=== PATIENT | female | born 2000 | race Caucasian/White ===

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

== ENCOUNTER 2023-03-26 13:12 | Emergency (ER) | payer MEDICAID, SELFPAY ==
[2023-03-26 13:13] VITALS: BP 121/58; PULSE 80; RESP 18; TEMP 36.4; O2SAT 95; BMI 44.4
--- NOTE | 2023-03-26 13:30 | ED.VIS.FEGU ---
HPI <FAUSTINO Li - Last Filed: 03/26/23 15:53> HPI - Female History of Present Illness Chief Complaint: Vag Bld, Preg Narrative Narrative: Patient is a 22-year-old female with history of PCOS, multiple miscarriages. Patient is a 3 para 0 abortions 2. Patient's had 2 miscarriages last 21 July 2022. Patient presents to the emergency department for vaginal bleeding that was heavier last evening, minimal pain. She is 5 to 6 weeks . She is a negative, so she knows that when she bleeds, concerning for miscarriage she needs RhoGAM. She states that she is here for the blood work, she does not want a ultrasound. She does have an ultrasound scheduled for Monday this upcoming week which is in 3 days. She denies any specific abdominal pain, no fever chills nausea or vomiting. PFSH <FAUSTINO Li - Last Filed: 03/26/23 15:53> PFSH Medical History Enlarged liver Home Medications prenat.vits,jessi,[id number] 1 tab PO DAILY 12/29/21 [History Last Taken Unknown] aspirin 81 mg tablet,delayed release 81 mg PO DAILY 03/26/23 [History Last Taken Unknown] folic acid 1 mg tablet 1 mg PO DAILY 03/26/23 [History Last Taken Unknown] metformin 500 mg tablet 500 mg PO DAILY 03/26/23 [History Last Taken Unknown] Allergy/AdvReac Type Severity Reaction Status Date / Time sumatriptan [From Imitrex] Allergy Rash Verified 03/26/23 13:15 Family History Grandmother Cancer Hypertension Surgical History Hx of tonsillectomy Magna teeth removed Social History household members: friend(s) Smoking Status: Never smoker alcohol intake: never substance use type: marijuana ROS <FAUSTINO Li - Last Filed: 03/26/23 15:53> ROS ED ROS Narrative Constitutional: Negative for fever, chills, weight loss, weakness Eyes: Negative for vision loss, vision change, double vision ENT: Negative for any sore throat, ear pain, congestion Cardiovascular: Negative for any chest pain, tightness, palpitations Respiratory: Negative for any cough, sputum production, hemoptysis, dyspnea, dyspnea on exertion, orthopnea Gastrointestinal: Negative for any abdominal pain, nausea, vomiting, diarrhea, constipation, blood in stool, blood in vomit : Negative for any urinary frequency, dysuria, retention, blood in urine. Positive for vaginal bleeding concern for miscarriage Muscle skeletal: Negative for any muscle joint pain, stiffness, myalgias, arthralgias, neck pain, back pain Neurological: Negative for any headache, syncope, numbness or tingling, dizziness Skin: Negative for any rashes, lumps, itching, abrasions, lacerations Psychiatric: Negative for any depression, anxiety, stress, suicidal ideation, homicidal ideation Hematologic: Negative for any easy bruising, excessive bruising, easy bleeding Allergies: Negative for any eczema, hives, rash EXAM <FAUSTINO Li - Last Filed: 03/26/23 15:53> Physical Exam Narrative Exam Narrative: Vital signs reviewed. HEET: Head normocephalic atraumatic, TMs clear bilaterally. Posterior pharynx is clear, moist mucous membranes. Nares clear bilaterally. Neck: Supple with no lymphadenopathy or tenderness. No signs of meningismus, negative jolt sign. Cardiac: Regular rate and rhythm no murmurs gallops or rubs, equal peripheral pulses bilaterally. Respiratory: Lungs clear to auscultation bilaterally. No chest tenderness. Abdomen: Soft, nontender, nondistended. No abdominal bruit or pulsatile masses. No hepatosplenomegaly Extremities: No peripheral edema, no signs of gross trauma or deformity. Active full range of motion of all extremities. Neuro: Cranial nerves II through XII intact, no focal neurological deficits. Skin: Clean dry and intact with no rash, purpura, petechiae, vesicles or pustules. Backs/flank: No CVA tenderness, no midline spinal tenderness, no deformity. Psych: Normal mood and affect. No SI, HI or acute psychosis. : Deferred pelvic exam. No vaginal pain at this time. Const Vital Signs: 03/26/23 13:13 03/26/23 15:12 Temperature 97.5 F L Temperature Source Temporal Pulse Rate 80 Respiratory Rate 18 18 Blood Pressure 121/58 H Blood Pressure Mean 79 Pulse Ox 95 Oxygen Delivery Method Room Air Positive well nourished and well developed General Appearance ED: well developed <Dr. Deuce Levy DO - Last Filed: 03/26/23 15:55> Physical Exam Const Vital Signs: 03/26/23 13:13 03/26/23 15:12 Temperature 97.5 F L Temperature Source Temporal Pulse Rate 80 Respiratory Rate 18 18 Blood Pressure 121/58 H Blood Pressure Mean 79 Pulse Ox 95 Oxygen Delivery Method Room Air MDM <OLIMPIA LiC - Last Filed: 03/26/23 15:53> MDM Lab Data Labs: Laboratory Results - last 24 hr 03/26/23 03/26/23 03/26/23 13:35 13:35 13:35 WBC 9.4 RBC 4.40 Hgb 13.6 Hct 40.0 MCV 90.9 MCH 30.9 MCHC 34.0 RDW Std Deviation 43.2 RDW Coeff of Thao 13.0 Plt Count 300 MPV 11.0 Immature Gran % (Auto) 0.100 Neut % (Auto) 60.9 Lymph % (Auto) 32.2 [place] % (Auto) 5.4 Eos % (Auto) 1.0 Baso % (Auto) 0.4 Absolute Neuts (auto) 5.7 Absolute Lymphs (auto) 3.02 Nucleated RBC % 0 HCG, Quant 90528 H Blood Type A NEGATIVE Antibody Screen NEGATIVE Treatment and Re-Evaluation Narrative: Patient appears well, patient appears nontoxic, vital signs are stable. Patient presents to the emerged department with complaints of heavy vaginal bleeding last evening. Patient states she has minimal to no bleeding today, no abdominal pain. She is concerned for a miscarriage, she has an ultrasound done on Monday of this upcoming week which is in 3 days. She does not want ultrasound today. She states that she would like her laboratory values done as well as her RhoGAM shot. She has had this in the past. Patient states that she has a negative. Physical examination was grossly unremarkable. Patient's laboratory values show the patient is a negative. Patient CBC was unremarkable. Patient's hCG quantitative was 15,968. Again the patient did refuse transvaginal ultrasound. She will follow-up with her ENTEROSTOMAL NURSE in 48 hours, she will then receive a repeat hCG quantitative level. She was given a RhoGAM shot secondary to her A- blood. Urinalysis was negative for any infection. At this time, patient is a threatened miscarriage, differential also includes ectopic , irregular vaginal bleeding. Patient is resting comfortably, patient has no lower abdominal pain. This makes ectopic unlikely. She will follow-up closely with her ENTEROSTOMAL NURSE which she is established with in the next 48 hours. Patient is happy with plan of care, patient stable for discharge. She was given return precaution. <Dr. Deuce Levy, DO - Last Filed: 03/26/23 15:55> [facility] Narrative Medical decision making narrative: I have personally performed a face to face assessment of the patient and have reviewed the KELSEY Note. I performed a substantive portion of the visit including all aspects of the following. My best findings include: History: Patient presents with vaginal bleeding that began last night. Patient states she has a history of multiple miscarriages. Patient states she is approximately 6 weeks . Patient states she knows her blood type is A-. Patient states that whenever she starts having some bleeding she needs RhoGAM. Patient states she does not want ultrasound today. Patient states she will follow-up with her ENTEROSTOMAL NURSE this week with her scheduled appointment. Patient denies any pain. Patient denies any fevers or chills. Patient denies any nausea or vomiting. Exam: Vital signs are stable. Patient is afebrile. Patient is in no acute distress. Oral mucosa is pink and moist. Neck is supple. Trachea is midline. There is no JVD. Heart was regular rate and rhythm. Lungs are clear and equal bilaterally. Abdomen is soft. Bowel sounds are normal. There is no tenderness. There is no rebound or guarding noted. Cranial nerves II through XII are intact. There are no focal motor or sensory deficits noted. Medical Decision Making: Basic labs will be obtained. Quantitative hCG will be obtained to assess for status. CBC will be obtained to assess for anemia and leukocytosis. Urinalysis will be obtained to assess for urinary tract infection. Type and screen will be obtained along with the RhoGAM work-up. CBC was reviewed and was within normal limits. Blood type was reviewed and was a negative. Patient was given RhoGAM here. Patient was instructed to follow-up with her ENTEROSTOMAL NURSE in 2-3 days for repeat evaluation and repeat quantitative hCG. Lab Data Labs: Laboratory Results - last 24 hr 05/07/23 05/07/23 05/07/23 13:35 13:35 13:35 WBC 9.4 RBC 4.40 Hgb 13.6 Hct 40.0 MCV 90.9 MCH 30.9 MCHC 34.0 RDW Std Deviation 43.2 RDW Coeff of Thao 13.0 Plt Count 300 MPV 11.0 Immature Gran % (Auto) 0.100 Neut % (Auto) 60.9 Lymph % (Auto) 32.2 [place] % (Auto) 5.4 Eos % (Auto) 1.0 Baso % (Auto) 0.4 Absolute Neuts (auto) 5.7 Absolute Lymphs (auto) 3.02 Nucleated RBC % 0 HCG, Quant 20460 H Blood Type A NEGATIVE Antibody Screen NEGATIVE Discharge Plan Triage Chief Complaint: Vag Bld, Preg ED Midlevel Provider: Viet Glover ED Provider: Deuce Levy Dx/Rx/DC Orders Clinical Impression: Vaginal bleeding affecting early Instructions: Bleeding During Early Prescriptions: No Action prenat.vits,jessi,cai-[id number] Tablet 1 tab PO DAILY metformin 500 mg Tablet 500 mg PO DAILY aspirin [Aspir-81] 81 mg Tablet,Delayed Release (Dr/Ec) 81 mg PO DAILY folic acid 1 mg Tablet 1 mg PO DAILY Primary Care Provider: Meño Schwab Referrals: Meño Schwab MD [Primary Care Provider] - Activity Restrictions/Additional Instructions: You received your RhoGAM shot today you need to follow-up with your ENTEROSTOMAL NURSE, your hCG quantitative was 15,968, this needs redrawn in 2 days. Disposition Disposition: Home, Self Care
[2023-03-26 13:43] LABS: Absolute Lymphocyte Count 3.02 X10^3/uL (0.83-4.51); Absolute Neutrophil Count 5.7 X10^3/uL (2.0-7.7); Basophil# 0.04 X10^3/uL; Basophil% 0.4 % (0-1); Eosinophil# 0.09 X10^3/uL; Hemoglobin 13.6 g/dL (12.0-15.0); Lymphocyte # 3.02 X10^3/ul (0.83-4.51); Lymphocyte % 32.2 % (19-41); Mean Corpuscular Hgb 30.9 pg (27.0-32.0); Mean Corpuscular Volume 90.9 fL (81-99); Monocyte# 0.51 X10^3/uL; Monocyte% 5.4 % (0-10); NRBC Flagged by Analyzer 0 % (0-5); Neutrophil # 5.71 X10^3/uL (2.7-7.7); Neutrophil % 60.9 % (47-70); Platelet Count 300 K/mm3 (150-450); RBC Distribution Width SD 43.2 fl (35.1-43.9); White Blood Count 9.4 K/mm3 (4.4-11.0)
[2023-03-26 15:12] VITALS: RESP 18
[2023-03-26 15:24] LABS: hCG Titer Quant., Serum 15968 mIU/mL (1-3)
[2023-03-26 15:39] LABS: Mucous, Urine 0 SEEN /hpf (<or=2+); Red Blood Cells-Urine 0 SEEN /hpf (0-5)
[2023-03-26 15:46] LABS: Color, Urine Yellow (Yellow); Glucose, Dipstick Normal (Normal); Ketone-Dipstick Negative (Negative); Leukocyte Esterase-Dipstick 25 /ul (Negative); Nitrite-Dipstick Negative (Negative); Occult Blood-Urine 25 /ul (Negative); Protein-Dipstick 15 mg/dl (Negative); Urine Bilirubin Dipstick Negative (Negative); Urine Clarity Clear (Clear); Urine Urobilinogen Normal (Normal)
[2023-03-26 16:16] LABS: White Blood Cells 0-5 SEEN /hpf (0-5)
[2023-03-26 16:17] LABS: Bacteria 1+ /hpf (None Seen); Squamous Epithelial Cells - UA 5-10 SEEN /hpf (5-10)
--- NOTE | 2023-03-26 16:31 | ED.VIS.FEGU ---
HPI <FAUSTINO Li - Last Filed: 03/26/23 16:37> HPI - Female History of Present Illness Chief Complaint: Vag Bld, Preg PFSH <FAUSTINO Li - Last Filed: 03/26/23 16:37> PFSH Medical History Enlarged liver Home Medications prenat.vits,jessi,lzg-[id number]-ndhtn 1 tab PO DAILY 12/29/21 [History Last Taken Unknown] aspirin 81 mg tablet,delayed release 81 mg PO DAILY 03/26/23 [History Last Taken Unknown] cephalexin 500 mg capsule 500 mg PO BID #10 caps 03/26/23 [Rx Last Taken Unknown] folic acid 1 mg tablet 1 mg PO DAILY 03/26/23 [History Last Taken Unknown] metformin 500 mg tablet 500 mg PO DAILY 03/26/23 [History Last Taken Unknown] Allergy/AdvReac Type Severity Reaction Status Date / Time sumatriptan [From Imitrex] Allergy Rash Verified 03/26/23 13:15 Family History Grandmother Cancer Hypertension Surgical History Hx of tonsillectomy [place] teeth removed Social History household members: friend(s) Smoking Status: Never smoker alcohol intake: never substance use type: marijuana EXAM <FAUSTINO Li - Last Filed: 03/26/23 16:37> Physical Exam Const Vital Signs: 03/26/23 13:13 03/26/23 15:12 Temperature 97.5 F L Temperature Source Temporal Pulse Rate 80 Respiratory Rate 18 18 Blood Pressure 121/58 H Blood Pressure Mean 79 Pulse Ox 95 Oxygen Delivery Method Room Air <Dr. Deuce Levy DO - Last Filed: 03/27/23 09:29> Physical Exam Const Vital Signs: 03/26/23 13:13 03/26/23 15:12 Temperature 97.5 F L Temperature Source Temporal Pulse Rate 80 Respiratory Rate 18 18 Blood Pressure 121/58 H Blood Pressure Mean 79 Pulse Ox 95 Oxygen Delivery Method Room Air MDM <FAUSTINO Li - Last Filed: 03/26/23 16:37> MDM Lab Data Labs: Laboratory Results - last 24 hr 03/26/23 03/26/23 03/26/23 13:35 13:35 13:35 WBC 9.4 RBC 4.40 Hgb 13.6 Hct 40.0 MCV 90.9 MCH 30.9 MCHC 34.0 RDW Std Deviation 43.2 RDW Coeff of Thao 13.0 Plt Count 300 MPV 11.0 Immature Gran % (Auto) 0.100 Neut % (Auto) 60.9 Lymph % (Auto) 32.2 Sully % (Auto) 5.4 Eos % (Auto) 1.0 Baso % (Auto) 0.4 Absolute Neuts (auto) 5.7 Absolute Lymphs (auto) 3.02 Nucleated RBC % 0 HCG, Quant 39380 H Urine Color Urine Clarity Urine pH Ur Specific [place] Urine Protein Urine Glucose (UA) Urine Ketones Urine Occult Blood Urine Nitrite Urine Bilirubin Urine Urobilinogen Ur Leukocyte Esterase Urine RBC Urine WBC Ur Squamous Epith Cells Urine Bacteria Urine Mucus Blood Type A NEGATIVE Antibody Screen NEGATIVE 03/26/23 15:35 WBC RBC Hgb Hct MCV MCH MCHC RDW Std Deviation RDW Coeff of Thao Plt Count MPV Immature Gran % (Auto) Neut % (Auto) Lymph % (Auto) [place] % (Auto) Eos % (Auto) Baso % (Auto) Absolute Neuts (auto) Absolute Lymphs (auto) Nucleated RBC % HCG, Quant Urine Color Yellow Urine Clarity Clear Urine pH 7.0 Ur Specific [place] 1.010 Urine Protein 15 H Urine Glucose (UA) Normal Urine Ketones Negative Urine Occult Blood 25 H Urine Nitrite Negative Urine Bilirubin Negative Urine Urobilinogen Normal Ur Leukocyte Esterase 25 H Urine RBC 0 SEEN Urine WBC 0-5 SEEN Ur Squamous Epith Cells 5-10 SEEN Urine Bacteria 1+ Urine Mucus 0 SEEN Blood Type Antibody Screen Treatment and Re-Evaluation Narrative: Patient appears well, patient appears nontoxic, vital signs are stable. Patient presents to the emergency department with concern of vaginal bleeding with 5 to 6 weeks of . Patient has had 2 miscarriages. Patient is a negative, she knows that she needs RhoGAM. I did order the RhoGAM, patient's CBC was unremarkable, patient's hCG quantitative was 15,968. She will have this redrawn in 2 days with her AIR TRAFFIC COORDINATOR. Patient's urinalysis did show some bacteremia, secondary to her patient will be placed on Keflex for 5 days, urine culture will be sent. Patient has a good relationship with her AIR TRAFFIC COORDINATOR and will follow-up in the next 48 hours for redraw of her hCG quant as well as a recheck. She also would like a ultrasound done at their office which they have scheduled. Patient was given return precaution. Able for discharge <Dr. Deuce Levy, DO - Last Filed: 03/27/23 09:29> MDM MDM Narrative Medical decision making narrative: This note is actually an addendum made by the KELSEY to the note from earlier today. The patient was not seen again as a second visit. As a result, there is no need to do a second history and physical on this patient. Please see the previous note for my attending physician note. Lab Data Labs: Laboratory Results - last 24 hr 03/26/23 03/26/23 03/26/23 13:35 13:35 13:35 WBC 9.4 RBC 4.40 Hgb 13.6 Hct 40.0 MCV 90.9 MCH 30.9 MCHC 34.0 RDW Std Deviation 43.2 RDW Coeff of Thao 13.0 Plt Count 300 MPV 11.0 Immature Gran % (Auto) 0.100 Neut % (Auto) 60.9 Lymph % (Auto) 32.2 [place]ully % (Auto) 5.4 Eos % (Auto) 1.0 Baso % (Auto) 0.4 Absolute Neuts (auto) 5.7 Absolute Lymphs (auto) 3.02 Nucleated RBC % 0 HCG, Quant 96993 H Urine Color Urine Clarity Urine pH Ur Specific [place] Urine Protein Urine Glucose (UA) Urine Ketones Urine Occult Blood Urine Nitrite Urine Bilirubin Urine Urobilinogen Ur Leukocyte Esterase Urine RBC Urine WBC Ur Squamous Epith Cells Urine Bacteria Urine Mucus Blood Type A NEGATIVE Antibody Screen NEGATIVE 03/26/23 15:35 WBC RBC Hgb Hct MCV MCH MCHC RDW Std Deviation RDW Coeff of Thao Plt Count MPV Immature Gran % (Auto) Neut % (Auto) Lymph % (Auto) [place] % (Auto) Eos % (Auto) Baso % (Auto) Absolute Neuts (auto) Absolute Lymphs (auto) Nucleated RBC % HCG, Quant Urine Color Yellow Urine Clarity Clear Urine pH 7.0 Ur Specific [place] 1.010 Urine Protein 15 H Urine Glucose (UA) Normal Urine Ketones Negative Urine Occult Blood 25 H Urine Nitrite Negative Urine Bilirubin Negative Urine Urobilinogen Normal Ur Leukocyte Esterase 25 H Urine RBC 0 SEEN Urine WBC 0-5 SEEN Ur Squamous Epith Cells 5-10 SEEN Urine Bacteria 1+ Urine Mucus 0 SEEN Blood Type Antibody Screen Discharge Plan Triage Chief Complaint: Vag Bld, Preg ED Midlevel Provider: Viet Glover ED Provider: Deuce Levy Dx/Rx/DC Orders Clinical Impression: Vaginal bleeding affecting early , UTI (urinary tract infection) Instructions: Bleeding During Early , ED Urinary Retention, Female Prescriptions: New cephalexin 500 mg capsule 500 mg PO BID Qty: 10 0RF No Action prenat.vits,jessi,rkn-fvwt-qqbrk Tablet 1 tab PO DAILY metformin 500 mg Tablet 500 mg PO DAILY aspirin [Aspir-81] 81 mg Tablet,Delayed Release (Dr/Ec) 81 mg PO DAILY folic acid 1 mg Tablet 1 mg PO DAILY Primary Care Provider: Meño Schwab Referrals: Meño Schwab MD [Primary Care Provider] - Activity Restrictions/Additional Instructions: You received your RhoGAM shot today you need to follow-up with your AIR TRAFFIC COORDINATOR, your hCG quantitative was 15,968, this needs redrawn in 2 days. Disposition Disposition: Home, Self Care Discharge Date/Time: 03/26/23 16:44
[2023-03-26] MEDS: Cephalexin 250 MG Capsule 500 MG PO (16:40)
== END 2023-03-26 16:44 | disposition home or self-care (01) ==
PROVIDERS: Nurse Practitioner; Emergency Provider Emergency Medicine; PCP Family Medicine; Visit Provider Emergency Medicine
DX: O20.9 Hemorrhage in early pregnancy, unspecified (principal); Z3A.01 Less than 8 weeks gestation of pregnancy; O99.321 Drug use complicating pregnancy, first trimester; F12.90 Cannabis use, unspecified, uncomplicated
CPT/HCPCS: 81001; 84702; 85025; 86850; 86900; 86901; 96372; 99283; J2790

== ENCOUNTER 2023-05-20 21:52 | Emergency (ER) | payer MEDICAID, SELFPAY ==
[2023-05-20 21:54] VITALS: BP 153/81; PULSE 133; RESP 18; TEMP 36.7; O2SAT 100; BMI 44.8
--- NOTE | 2023-05-20 22:34 | ED.VIS.GI ---
HPI HPI - GI History of Present Illness Chief Complaint: Abd Pain Informant: patient Abdominal Pain/Flank Pain Onset: Yesterday Context: Sudden Onset Timing: Continuous Quality: Cramping Location: - (Suprapubic) Worsened by: Nothing Relieved by: Nothing Nausea/Vomiting/Emesis GI Symptom: Positive for Nausea and Vomiting Diarrhea/Melena/Hematochezia GI Symptom: Negative for Diarrhea, Melena or Hematochezia Associated Symptoms Associated Symptoms: Negative for Dysuria, Frequency or Hematuria Narrative Narrative: Patient presents with lower abdominal cramping that began yesterday. Patient states she is approximately 14 weeks . Patient states she was on a golf cart last night and fell off of it. Patient states the cramping began soon after that. Patient denies any vaginal bleeding or discharge. Patient admits to some nausea and vomiting but states she has had that throughout her . Patient denies any diarrhea, melena, or hematochezia. Patient states she has had some black stools but states she is on vitamins. Patient denies any urinary complaints. Patient states nothing makes her cramping better nothing makes it worse. Patient states she has had 2 miscarriages in the past. [facility] Medical History (Updated 05/21/23 @ 06:[address] Deuce Levy, ) Enlarged liver Home Medications prenat.vits,jessi,zvy-viri-wapsa 1 tab PO DAILY 12/29/21 [History Last Taken Unknown] aspirin 81 mg tablet,delayed release 81 mg PO DAILY 03/26/23 [History Last Taken Unknown] cephalexin 500 mg capsule 500 mg PO BID #10 caps 03/26/23 [Rx Last Taken Unknown] folic acid 1 mg tablet 1 mg PO DAILY 03/26/23 [History Last Taken Unknown] metformin 500 mg tablet 500 mg PO DAILY 03/26/23 [History Last Taken Unknown] Allergy/AdvReac Type Severity Reaction Status Date / Time sumatriptan [From Imitrex] Allergy Rash Verified 05/20/23 21:54 Family History Grandmother Cancer Hypertension Surgical History (Updated 05/20/23 @ 22:[address] Deuce Levy, DO) Hx of dilation and curettage Hx of tonsillectomy [place] teeth removed Social History household members: friend(s) Smoking Status: Never smoker alcohol intake: never substance use type: marijuana ROS ROS ED Constitutional Constitutional ED: Denies chills or fever(s) Eyes Eyes: Denies blurry vision or change in vision ENT ENT ED: Denies rhinorrhea or sore throat Cardiovascular Cardiovascular: Denies chest pain or palpitations Respiratory/Chest Respiratory/Chest: Denies cough or dyspnea Gastrointestinal Gastrointestinal: Reports abdominal pain, nausea and vomiting Genitourinary Genitourinary ED: Denies dysuria or hematuria Musculoskeletal Musculoskeletal: Reports back pain; Denies neck pain Integumentary Denies abscess or rash Neurologic Neurologic: Denies headache(s) or weakness Allergic/Immunologic Allergic/Immunologic ED: Denies mouth swelling or urticaria EXAM Physical Exam Const Vital Signs: 05/20/23 21:54 05/21/23 00:40 Temperature 98.1 F Temperature Source Temporal Pulse Rate 133 H 87 Respiratory Rate 18 16 Blood Pressure 153/81 H 93/61 Blood Pressure Mean 105 71 Pulse Ox 100 99 Positive well nourished, well developed and obese General Appearance ED: well developed and NAD Nutritional Appearance: obese HEENT Reports moist mucous membranes Neck supple and no JVD Resp normal respiratory effort and clear to auscultation bilaterally Cardio regular rate and regular rhythm GI non-tender and non-distended Palpation: soft Extremity full ROM Neuro CN's II-XII intact bilaterally, moves all extremities and no sensory deficits noted Sensorium / Orientation: alert Motor Exam: strength 5/5 throughout MDM MDM MDM Narrative Medical decision making narrative: Differential diagnosis includes threatened miscarriage, abdominal contusion, and urinary tract infection. CBC will be obtained to assess for leukocytosis and anemia. Urinalysis will be obtained to assess for urinary tract infection and hematuria. Quantitative hCG will be obtained to assess for status. [id number] ultrasound will be obtained to assess viability. Lab Data Attestation: I reviewed the patient's lab results. Lab results narrative: CBC was reviewed and was within normal limits. Urinalysis was reviewed. There is no evidence of urinary tract infection or hematuria. Quantitative hCG was reviewed and was 37,002. Labs: Laboratory Results - last 24 hr 05/20/23 05/20/23 22:55 23:00 WBC 10.3 RBC 3.86 L Hgb 12.1 Hct 35.2 L MCV 91.2 MCH 31.3 MCHC 34.4 RDW Std Deviation 42.7 RDW Coeff of Thao 13.0 Plt Count 278 MPV 11.6 Immature Gran % (Auto) 1.400 H Neut % (Auto) 67.7 Lymph % (Auto) 24.6 [place] % (Auto) 5.4 Eos % (Auto) 0.7 Baso % (Auto) 0.2 Absolute Neuts (auto) 7.0 Absolute Lymphs (auto) 2.54 Nucleated RBC % 0 HCG, Quant 12469 H Urine Color Yellow Urine Clarity Clear Urine pH 6.5 Ur Specific [place] 1.020 Urine Protein Negative Urine Glucose (UA) Normal Urine Ketones Negative Urine Occult Blood Negative Urine Nitrite Negative Urine Bilirubin Negative Urine Urobilinogen Normal Ur Leukocyte Esterase Negative Urine RBC 0 SEEN Urine WBC 0-5 SEEN Ur Squamous Epith Cells 0-5 SEEN Amorphous Sediment 1+ Urine Bacteria 0 SEEN Urine Mucus 0 SEEN Treatment and Re-Evaluation :: The patient did not want to wait for a iclpc-du-krat ultrasound. Patient left without having ultrasound done. Patient was instructed to follow-up with her primary care physician and [employer] in 2 to 3 days. Patient was instructed return if worse in any way. Discharge Plan Triage Chief Complaint: Abd Pain ED Provider: Deuce Levy Dx/Rx/DC Orders Clinical Impression: Pelvic pain affecting Prescriptions: No Action prenat.vits,jessi,[id number]-cbtho Tablet 1 tab PO DAILY metformin 500 mg Tablet 500 mg PO DAILY aspirin [Aspir-81] 81 mg Tablet,Delayed Release (Dr/Ec) 81 mg PO DAILY folic acid 1 mg Tablet 1 mg PO DAILY cephalexin 500 mg capsule 500 mg PO BID Qty: 10 0RF Primary Care Provider: Meño Schwab Referrals: Meño Schwab MD [Primary Care Provider] - Disposition Disposition: Elopement Discharge Date/Time: 05/21/23 02:09
[2023-05-20] MEDS: 0.9% Normal Saline 1,000 ML 1000 ML IV (23:02)
[2023-05-20 23:11] LABS: Bacteria 0 SEEN /hpf (None Seen); Mucous, Urine 0 SEEN /hpf (<or=2+); Red Blood Cells-Urine 0 SEEN /hpf (0-5)
[2023-05-20 23:13] LABS: Color, Urine Yellow (Yellow); Glucose, Dipstick Normal (Normal); Ketone-Dipstick Negative (Negative); Leukocyte Esterase-Dipstick Negative /ul (Negative); Nitrite-Dipstick Negative (Negative); Occult Blood-Urine Negative /ul (Negative); Protein-Dipstick Negative (Negative); Urine Bilirubin Dipstick Negative (Negative); Urine Clarity Clear (Clear); Urine Urobilinogen Normal (Normal); Urine pH 6.5 (5.0 - 8.0)
[2023-05-20 23:22] LABS: Amorphous Sediment 1+; Squamous Epithelial Cells - UA 0-5 SEEN /hpf (5-10); White Blood Cells 0-5 SEEN /hpf (0-5)
[2023-05-20 23:29] LABS: Absolute Lymphocyte Count 2.54 X10^3/uL (0.83-4.51); Basophil# 0.02 X10^3/uL; Basophil% 0.2 % (0-1); Eosinophil# 0.07 X10^3/uL; Eosinophils% 0.7 % (0-5); Hematocrit 35.2 % (37-47); Hemoglobin 12.1 g/dL (12.0-15.0); Lymphocyte # 2.54 X10^3/ul (0.83-4.51); Lymphocyte % 24.6 % (19-41); Mean Corp Hgb Conc 34.4 g/dL (32-36); Mean Corpuscular Hgb 31.3 pg (27.0-32.0); Mean Corpuscular Volume 91.2 fL (81-99); Mean Platelet Vol. 11.6 fl (6.2-12.0); Monocyte# 0.56 X10^3/uL; Monocyte% 5.4 % (0-10); NRBC Flagged by Analyzer 0 % (0-5); Neutrophil # 6.99 X10^3/uL (2.7-7.7); Neutrophil % 67.7 % (47-70); Platelet Count 278 K/mm3 (150-450); RBC Distribution Width SD 42.7 fl (35.1-43.9); Red Blood Count 3.86 M/mm3 (4.2-5.4); White Blood Count 10.3 K/mm3 (4.4-11.0)
[2023-05-21 00:40] VITALS: BP 93/61; PULSE 87; RESP 16; O2SAT 99
--- NOTE | 2023-05-21 02:06 | ED.RN ---
PATIENT REPORTS WANTING TO LEAVE, DOES NOT WANT TO WAIT FOR ULTRASOUND. ADVISED OF RISK OF NOT CHECKING BABY, SHE VERBALIZED UNDERSTANDING. IV REMOVED AND AMBULATED OUT OF ROOM WITHOUT DIFFICULTY.
== END 2023-05-21 02:09 | disposition left against medical advice (07) ==
LOC: ED 22:34
PROVIDERS: Emergency Provider Emergency Medicine; PCP Family Medicine; Visit Provider Emergency Medicine
DX: O26.899 Other specified pregnancy related conditions, unspecified trimester (principal); F12.90 Cannabis use, unspecified, uncomplicated; R10.2 Pelvic and perineal pain; O21.9 Vomiting of pregnancy, unspecified; Z3A.00 Weeks of gestation of pregnancy not specified
CPT/HCPCS: 81001; 84702; 85025; 96360; 99284; J7030; A4216

== ENCOUNTER 2024-01-11 08:48 | Emergency (ER) | payer MEDICAID, SELFPAY ==
[2024-01-11 08:50] VITALS: BP 97/55; PULSE 56; RESP 20; TEMP 35.9; O2SAT 98; BMI 43.4
--- NOTE | 2024-01-11 08:56 | EDS_ITS ---
HPI History of Present Illness Chief Complaint: Chest Pain Informant: patient Onset/Context/Timing Onset: Today Activity at onset: sudden Timing: Waxes and wanes Quality: Positive for Sharp Location: Left Chest Worsened By: Nothing Relieved By: Nothing Associated Symptoms: Positive for Dyspnea; Negative for Nausea, Vomiting, Diaphoresis, Cough, Fever, Lightheadedness, Acid Reflux or Palpitations Narrative Narrative: Patient presents with chest pain that began this morning. Patient states it came on rather suddenly. Patient states that it has been waxing and waning. Patient describes the pain as sharp. Patient states the pain is over the left side of her chest and radiates into her back. Patient states nothing makes it better and nothing makes it worse. Patient admits to some shortness of breath but denies any cough or fevers. Patient denies any nausea or vomiting. Patient denies any diaphoresis. Patient denies any palpitations. Patient did have a C- section 8 weeks ago. [facility] Medical History (Updated 01/11/24 @ 12:[address] Deuce Levy DO) Enlarged liver Home Medications prenat.vits,jessi,rol-qphu-onjsl 1 tab PO DAILY 12/29/21 [History Last Taken Unknown] aspirin 81 mg tablet,delayed release 81 mg PO DAILY 03/26/23 [History Last Taken Unknown] cephalexin 500 mg capsule 500 mg PO BID #10 caps 03/26/23 [Rx Last Taken Unknown] folic acid 1 mg tablet 1 mg PO DAILY 03/26/23 [History Last Taken Unknown] metformin 500 mg tablet 500 mg PO DAILY 03/26/23 [History Last Taken Unknown] Allergy/AdvReac Type Severity Reaction Status Date / Time sumatriptan [From Imitrex] Allergy Rash Verified 01/11/24 08:54 Family History Grandmother Cancer Hypertension Surgical History (Updated 01/11/24 @ 09:[address] Deuce Levy DO) Hx of section Hx of dilation and curettage Hx of tonsillectomy [place] teeth removed Social History household members: friend(s) Smoking Status: Never smoker alcohol intake: never substance use type: marijuana ROS ROS ED Constitutional Constitutional ED: Denies chills or fever(s) Eyes Eyes: Denies blurry vision or change in vision ENT ENT ED: Denies rhinorrhea or sore throat Cardiovascular Cardiovascular: Reports chest pain; Denies palpitations Respiratory/Chest Respiratory/Chest: Reports dyspnea; Denies cough Gastrointestinal Gastrointestinal: Denies nausea or vomiting Genitourinary Genitourinary ED: Denies dysuria or hematuria Musculoskeletal Musculoskeletal: Reports back pain; Denies neck pain Integumentary Denies abscess or rash Neurologic Neurologic: Denies headache(s) or weakness Allergic/Immunologic Allergic/Immunologic ED: Denies mouth swelling or urticaria EXAM Physical Exam Const Vital Signs: 01/11/24 08:50 01/11/24 09:31 Temperature 96.6 F L Temperature Source Temporal Pulse Rate 56 L Respiratory Rate 20 H Blood Pressure 97/55 L Blood Pressure Mean 69 Pulse Ox 98 Oxygen Delivery Method Room Air Positive well nourished, well developed and obese General Appearance ED: well developed and NAD Nutritional Appearance: obese HEENT Reports moist mucous membranes Neck supple and no JVD Chest Wall Chest: tenderness sternum Resp normal respiratory effort and clear to auscultation bilaterally Cardio regular rate and regular rhythm GI soft to palpation, non-tender and non-distended Extremity normal to inspection General Extremety ED: Negative for edema or tenderness General Extremity: Negative for edema Neuro oriented x3, CN's II-XII intact bilaterally and no sensory deficits noted Sensorium / Orientation: awake and alert Motor Exam: strength 5/5 throughout Psych mental status grossly normal Heart Score History: Slightly/Non-Suspicious ECG: Normal Age: </= 45 years Risk Factors: No Risk Factors Troponin: </= Normal Limit Score: 0 MDM MDM MDM Narrative Medical decision making narrative: Differential diagnosis includes pulmonary embolism, pneumonia, cardiac dysrhythmia, cardiac ischemia, musculoskeletal pain, and anxiety. EKG will be obtained to assess for cardiac dysrhythmia and cardiac ischemia. CTA of the chest will be obtained to assess for pulmonary embolism and pneumonia. CBC will be obtained to assess for leukocytosis and anemia. Comprehensive metabolic profile will be obtained to assess for hepatic function, renal function, and electrolyte abnormality. High-sensitivity troponin will be obtained to assess for cardiac ischemia. 2-hour repeat high-sensitivity troponin will be obtained to assess for ongoing cardiac ischemia. Lab Data Attestation: I reviewed the patient's lab results. Lab results narrative: CBC was reviewed and was within normal limits. Comprehensive metabolic profile was reviewed and was within normal limits. High-sensitivity troponin was reviewed and was normal at 3. 2-hour repeat high-sensitivity troponin was reviewed and was normal at less than 3. Labs: Laboratory Results - last 24 hr 01/11/24 01/11/24 08:38 11:55 WBC 10.3 RBC 4.70 Hgb 13.3 Hct 41.4 MCV 88.1 MCH 28.3 MCHC 32.1 RDW Std Deviation 47.2 H RDW Coeff of Thao 14.7 H Plt Count 333 MPV 11.8 Immature Gran % (Auto) 0.200 Neut % (Auto) 54.5 Lymph % (Auto) 38.4 [place] % (Auto) 5.4 Eos % (Auto) 1.2 Baso % (Auto) 0.3 Absolute Neuts (auto) 5.6 Absolute Lymphs (auto) 3.97 Nucleated RBC % 0 Sodium 141 Potassium 3.8 Chloride 111 H Carbon Dioxide 25.0 Anion Gap 5 BUN 10 Creatinine 0.84 Estim Creat Clear Calc 127.11 Est GFR (MDRD) Af Amer 109 Est GFR (MDRD) Non-Af 90 BUN/Creatinine Ratio 11.9 Glucose 109 H Calcium 9.2 Total Bilirubin 0.40 AST 11 L ALT 20 Alkaline Phosphatase 70 Troponin I High Sens 3 < 3 L Total Protein 7.3 Albumin 3.4 Globulin 3.9 Albumin/Globulin Ratio 0.9 Radiography CTA PE Study: No Evidence of PE and No Evidence of Dissection Diagnostic Testing: Clinical Impression(s) from Imaging Studies Chest CTA 01/11/24 09:17 IMPRESSION: 1. No evidence of pulmonary embolism or aortic dissection. 2. No acute pulmonary infiltrate or pleural effusions. Electronically Signed: Luis Arreola MD at 10:08 EST , CTA of the chest was obtained. There is no evidence of pulmonary embolism or aortic dissection. There is no acute infiltrate or effusion noted. This was interpreted by the radiologist and was also independently reviewed by myself. EKG Initial EKG: Attestation: I personally reviewed and interpreted this EKG as follows: Interpretation: Sinus Rhythm (65) and No Acute Injury Pattern Comments: EKG was obtained. On my independent interpretation, it showed a normal sinus rhythm with a rate of 65. LA interval, QRS interval, and QTc intervals were all normal. [place] was normal. There are no acute ST or T wave changes. Prior EKG tracings: available for review Prior: Unchanged (09/22/2017) Treatment and Re-Evaluation :: Patient was given aspirin and sublingual nitroglycerin by EMS. Patient was given a dose of morphine and Zofran here. Patient was advised of her findings. Patient has a HEART score of 0. Patient was advised that this is low risk for acute cardiac event. Patient was instructed to take Tylenol or ibuprofen as needed for pain. Patient was instructed to follow-up with her primary care physician in 5 to 7 days. Patient understood and was agreeable with the plan. All questions were answered. Discharge Plan Triage Chief Complaint: Chest Pain ED Provider: Deuce Levy Dx/Rx/DC Orders Clinical Impression: Chest pain of uncertain etiology, Morbid obesity with BMI of 40.0-44.9, adult Instructions: ED Chest Pain, Uncertain Cause Prescriptions: No Action prenat.vits,jessi,qgj-lmhb-rwvav Tablet 1 tab PO DAILY metformin 500 mg Tablet 500 mg PO DAILY aspirin [Aspir-81] 81 mg Tablet,Delayed Release (Dr/Ec) 81 mg PO DAILY folic acid 1 mg Tablet 1 mg PO DAILY cephalexin 500 mg capsule 500 mg PO BID Qty: 10 0RF Primary Care Provider: Meño Schwab Referrals: Meño Schwab MD [Primary Care Provider] - 5-7 Days Disposition Disposition: Home, Self Care
--- NOTE | 2024-01-11 09:17 | EKG12_ITS ---
Test Reason : CP Blood Pressure : / mmHG Vent. Rate : 065 BPM Atrial Rate : 065 BPM P-R Int : 136 ms QRS Dur : 080 ms QT Int : 420 ms P-R-T Axes : -26 046 034 degrees QTc Int : 436 ms Normal sinus rhythm Normal ECG Confirmed by JOSE MEDLEY MD ([id number]), deputy editor in chief MARYCHUY SANDERS ([id number]) on 01/12/2024 10:38:22 AM Referred By: Confirmed By:JOSE MEDLEY MD
--- NOTE | 2024-01-11 09:17 | CT_ITS ---
STUDY: CTA CHEST REASON FOR EXAM: Female, 23 years old. Chest pain RADIATION DOSAGE (If Supplied By Facility): CTDIvol = ( 13.85 ) mGy, DLP = ( 385.8 ) mGycm TECHNIQUE: The examination was performed with the intravenous administration of IV 100mL Isovue-370. Post-processing of the angiographic images was performed, with multiplanar reformation and 3D reconstruction. Individualized dose optimization techniques were used for this CT. COMPARISON: No relevant prior comparison study available FINDINGS: Normal enhancement of the main pulmonary artery and right and left pulmonary arteries. Normal enhancement of the bilateral peripheral pulmonary arteries. There is no demonstrated pulmonary embolism. Normal thoracic aorta and visualized great vessels. There is no demonstrated aortic dissection. Normal heart and pericardium. Normal mediastinum. Normal hilar regions. Normal visualized trachea and bronchi. There are no pulmonary infiltrates. There are no pleural effusions. Normal chest wall structures. Normal osseous structures. Normal visualized upper abdomen. CT/CTA Chest W/WO Contrast IMPRESSION: 1. No evidence of pulmonary embolism or aortic dissection. 2. No acute pulmonary infiltrate or pleural effusions. Electronically Signed: Luis Arreola MD at 10:08 [facility] ,
[2024-01-11] MEDS: Ondansetron 4 MG/2 ML Vial IV (09:28)
[2024-01-11] MEDS: Morphine 4 MG/ML Syringe IV (09:29)
[2024-01-11 09:41] LABS: Absolute Lymphocyte Count 3.97 X10^3/uL (0.83-4.51); Absolute Neutrophil Count 5.6 X10^3/uL (2.0-7.7); Basophil# 0.03 X10^3/uL; Basophil% 0.3 % (0-1); Eosinophil# 0.12 X10^3/uL; Eosinophils% 1.2 % (0-5); Hematocrit 41.4 % (37-47); Hemoglobin 13.3 g/dL (12.0-15.0); Lymphocyte # 3.97 X10^3/ul (0.83-4.51); Lymphocyte % 38.4 % (19-41); Mean Corp Hgb Conc 32.1 g/dL (32-36); Mean Corpuscular Hgb 28.3 pg (27.0-32.0); Mean Corpuscular Volume 88.1 fL (81-99); Mean Platelet Vol. 11.8 fl (6.2-12.0); Monocyte# 0.56 X10^3/uL; Monocyte% 5.4 % (0-10); NRBC Flagged by Analyzer 0 % (0-5); Neutrophil # 5.64 X10^3/uL (2.7-7.7); Neutrophil % 54.5 % (47-70); Platelet Count 333 K/mm3 (150-450); RBC Distribution Width CV 14.7 % (11.6-14.6); RBC Distribution Width SD 47.2 fl (35.1-43.9); White Blood Count 10.3 K/mm3 (4.4-11.0)
[2024-01-11 09:46] LABS: ALB/GLOB Ratio 0.9 RATIO (0.9-2.4); AST(SGOT) 11 U/L (15-37); Alanine Aminotransfer ALT/SGPT 20 U/L (13-56); Albumin, Serum 3.4 g/dL (3.2-5.0); Alkaline Phosphatase 70 U/L (45-117); Anion Gap 5 (5-15); BUN 10 mg/dL (7-18); BUN/Creat Ratio 11.9 RATIO (10-20); Calcium,Total 9.2 mg/dL (8.5-10.1); Chloride 111 mmol/L (98-107); Creatinine, Serum 0.84 mg/dL (0.55-1.02); EST Glomerular Filtration Rate 90 mL/min (>60); Est Glom Filt Rate - Afr Amer 109 mL/min (>60); Estimated Creatinine Clearance 127.11 ml/min; Globulin 3.9 g/dL (2.2-4.2); Glucose 109 mg/dL (74-106); Potassium 3.8 mmol/L (3.5-5.1); Protein, Total 7.3 g/dL (6.4-8.2); Sodium Level 141 mmol/L (136-145); Troponin-I HS (w/2H Reflex) 3 pg/mL (3.0-54.0)
[2024-01-11 11:25] LABS: Reflex Troponin-HS? (from REC) Y
[2024-01-11 12:26] LABS: Troponin-I HS < 3 pg/mL (3.0-54.0)
[2024-01-11 12:30] VITALS: BP 109/60; PULSE 64; RESP 16; TEMP 37.2; O2SAT 98
== END 2024-01-11 12:33 | disposition home or self-care (01) ==
PROVIDERS: Emergency Provider Emergency Medicine; PCP Family Medicine; Visit Provider Emergency Medicine
DX: R07.9 Chest pain, unspecified (principal); E66.01 Morbid (severe) obesity due to excess calories; Z68.41 Body mass index [BMI] 40.0-44.9, adult; R06.02 Shortness of breath; F12.90 Cannabis use, unspecified, uncomplicated; Z79.82 Long term (current) use of aspirin; M54.9 Dorsalgia, unspecified; R06.00 Dyspnea, unspecified
CPT/HCPCS: 71275; 80053; 84484; 85025; 93005; 99284; J7030; Q9967; J2405

== ENCOUNTER 2024-03-30 07:25 | Emergency (ER) | payer MEDICAID, SELFPAY ==
[2024-03-30 07:26] VITALS: BP 113/57; PULSE 72; RESP 16; TEMP 36.6; O2SAT 100
[2024-03-30 07:35] VITALS: BMI 42.3
--- NOTE | 2024-03-30 07:37 | RAD_ITS ---
STUDY: X-RAY CHEST REASON FOR EXAM: Female, 23 years old. Atypical chest pain TECHNIQUE: Single AP portable view of the chest. COMPARISON: None. FINDINGS: EKG leads overlie the chest The lungs are clear and expanded. There is no demonstrated pleural abnormality. Normal size heart. Normal mediastinum and edgar. Normal visualized pulmonary arteries. Normal visualized aortic arch and descending thoracic aorta. Normal visualized thoracic spine. Normal visualized ribs, clavicles, and shoulders. There is no demonstrated abnormality of the visualized soft tissue structures of the upper abdomen. RAD/Chest 1 View (Portable) IMPRESSION: Normal x-ray examination of the chest. Electronically Signed: Moe Norris MD at 8:17 EDT ,
--- NOTE | 2024-03-30 07:38 | ED.VIS.CHEST ---
HPI History of Present Illness Chief Complaint: Chest Pain Narrative Narrative: 23-year-old female who denies significant past medical history presents with chest pain that awoke her from sleep approximately 1 hour ago. She relates history that 2 months ago she had similar chest pain but was more in the middle of her chest. This time, more deep under her left breast. She is slightly nauseated. She states last time they gave her naproxen which seemed to help with her pain. She took it this morning, but it did not seem to help. She denies any fevers but may feel chilled, no cough. No diaphoresis. She denies any leg swelling. She does not take any daily medications. Her pain may be pleuritic in nature but she describes it more as sharp and stabbing. Is mainly on the left side this time. She states pain is worse when she lays down. Additionally, she states she took her blood pressure and it was elevated at 140 systolic. [facility] Medical History Enlarged liver Home Medications prenat.vits,jessi,[id number] 1 tab PO DAILY 12/29/21 [History Last Taken Unknown] aspirin 81 mg tablet,delayed release 81 mg PO DAILY 03/26/23 [History Last Taken Unknown] cephalexin 500 mg capsule 500 mg PO BID #10 caps 03/26/23 [Rx Last Taken Unknown] folic acid 1 mg tablet 1 mg PO DAILY 03/26/23 [History Last Taken Unknown] metformin 500 mg tablet 500 mg PO DAILY 03/26/23 [History Last Taken Unknown] Allergy/AdvReac Type Severity Reaction Status Date / Time sumatriptan [From Imitrex] Allergy Rash Verified 01/11/24 08:54 Family History Grandmother Cancer Hypertension Surgical History Hx of section Hx of dilation and curettage Hx of tonsillectomy [place] teeth removed Social History household members: friend(s) Smoking Status: Never smoker alcohol intake: never substance use type: marijuana ROS ROS ED ROS Narrative Constitutional: No fever, no chills. HEENT: No sore throat. No neck pain. No loss of vision. No rhinorrhea. Cardiovascular: Left-sided chest pain. No palpitations. No pedal edema. Respiratory: No cough, no shortness of breath. Abdominal: No abdominal pain. Positive nausea. No vomiting. Genitourinary: No dysuria. No hematuria. Musculoskeletal: No myalgias. No arthralgias. Neurologic: No headaches. No dizziness. No lightheadedness. Skin: No rash. No change in color. Psychiatric: No depression. No anxiety. EXAM Physical Exam Narrative Exam Narrative: Afebrile. Vital signs noted. HEENT: Normocephalic. Atraumatic. PERRL, EOMI. Neck soft and supple. No point tenderness or step off. Cardiovascular: Regular rate and rhythm. No murmurs, rubs, or gallops appreciated. Respiratory: No tachypnea. Lungs clear to auscultation bilaterally. Gastrointestinal: Abdomen soft, nontender, with normoactive bowel sounds. No rebound or guarding. Neurological: Awake. Alert. Nonfocal, nonlateralizing. Skin: No rash. Normal color. No pallor. Musculoskeletal: No pedal edema. Full range of motion extremities. Const Vital Signs: 03/30/24 07:26 03/30/24 07:46 03/30/24 08:25 Temperature 97.8 F Temperature Source Temporal Pulse Rate 72 65 Respiratory Rate 16 18 Blood Pressure 113/57 L 137/86 H Blood Pressure Mean 75 103 Pulse Ox 100 100 Oxygen Delivery Method Room Air Room Air Room Air 03/30/24 09:00 03/30/24 10:00 Temperature 97.8 F Temperature Source Temporal Pulse Rate 67 76 Respiratory Rate 18 18 Blood Pressure 167/105 H 137/56 H Blood Pressure Mean 125 83 Pulse Ox 96 97 Oxygen Delivery Method Room Air Room Air Heart Score History: Slightly/Non-Suspicious ECG: Normal Age: </= 45 years Risk Factors: No Risk Factors Score: 0 MDM MDM MDM Narrative Medical decision making narrative: In the differential diagnosis is acute coronary syndrome versus pulmonary embolism versus pneumothorax versus pneumonia. History and physical does not really support pneumonia or pneumothorax. Her blood pressure is normalized currently. She is not tachycardic and her pulse ox is 100% on room air. However, given the reported pleuritic nature on the left side, D-dimer will be obtained although she is essentially PERC negative. Comprehensive workup was pursued. EKG obtained and interpreted by myself independently as normal sinus rhythm at 66 bpm without ectopy or acute ST changes. No STEMI. Serial troponins will be obtained to rule out non-STEMI. Chest x-ray 1 view was obtained and interpreted by myself independently as no acute process, no pneumothorax, no pneumonia. I do not feel antibiotics are indicated. I reviewed the radiology report which confirms my independent interpretation. I reviewed her laboratory work and she has a leukocytosis of 14.3 which I think is nonspecific, hemoglobin normal at 13.1, platelet count 309. Review of her electrolyte panel shows potassium slightly low at 3.4 which will be replaced orally, chloride elevated at 108, normal BUN of 17 and creatinine 0.81. D-dimer is negative at 0.29. In review of her previous ED visit, she had a CTA 2 months ago that was negative. Her initial high-sensitivity troponin is less than 3 with a repeat being 3. This appears as her baseline when compared to prior labs. She had been given Toradol and upon repeat examination at approximately 11:05 AM, she is feeling improved. At this point in time, I feel she can be discharged safely home with follow-up. Return instructions to the emergency department were reviewed. Disposition is discharged home in stable condition. History & Record Review Discussion w/independent historian: Patient Additional record(s) reviewed:: Prior ED visit and Prior labs Lab Data Attestation: I reviewed the patient's lab results. Labs: Laboratory Results - last 24 hr 03/30/24 03/30/24 07:45 10:16 WBC 14.3 H RBC 4.43 Hgb 13.1 Hct 40.1 MCV 90.5 MCH 29.6 MCHC 32.7 RDW Std Deviation 43.8 RDW Coeff of Thao 13.3 Plt Count 309 MPV 11.6 Immature Gran % (Auto) 0.300 Neut % (Auto) 62.6 Lymph % (Auto) 30.7 [place] % (Auto) 5.4 Eos % (Auto) 0.7 Baso % (Auto) 0.3 Absolute Neuts (auto) 8.9 H Absolute Lymphs (auto) 4.39 Nucleated RBC % 0 D-Dimer Quant (PE/DVT) 0.29 Sodium 140 Potassium 3.4 L Chloride 108 H Carbon Dioxide 26.0 Anion Gap 6 BUN 17 Creatinine 0.81 Estim Creat Clear Calc 129.73 Est GFR (MDRD) Af Amer 114 Est GFR (MDRD) Non-Af 94 BUN/Creatinine Ratio 21.0 H Glucose 124 H Calcium 8.8 Troponin I High Sens < 3 L 3 Radiography Chest X-Ray - ED: 1 View and Read by ED Physician Diagnostic Testing: Clinical Impression(s) from Imaging Studies Chest X-Ray 03/30/24 07:37 IMPRESSION: Normal x-ray examination of the chest. Electronically Signed: Moe Norris MD at 8:17 EDT , Discharge Plan Triage Chief Complaint: Chest Pain ED Provider: Juan Jose Salguero Dx/Rx/DC Orders Clinical Impression: Pleuritic chest pain, Chest pain Instructions: ED Chest Pain, Uncertain Cause Prescriptions: No Action prenat.vits,jessi,qpt-[id number] Tablet 1 tab PO DAILY metformin 500 mg Tablet 500 mg PO DAILY aspirin [Aspir-81] 81 mg Tablet,Delayed Release (Dr/Ec) 81 mg PO DAILY folic acid 1 mg Tablet 1 mg PO DAILY cephalexin 500 mg capsule 500 mg PO BID Qty: 10 0RF Primary Care Provider: Meño Schwab Referrals: Meño Schwab MD [Primary Care Provider] - 3-5 Days if not improving Disposition Disposition: Home, Self Care
[2024-03-30] MEDS: Aspirin 81 MG TAB.CHEW 324 MG PO (07:43)
[2024-03-30 07:57] LABS: Absolute Lymphocyte Count 4.39 X10^3/uL (0.83-4.51); Absolute Neutrophil Count 8.9 X10^3/uL (2.0-7.7); Basophil# 0.05 X10^3/uL; Basophil% 0.3 % (0-1); Eosinophils% 0.7 % (0-5); Hematocrit 40.1 % (37-47); Hemoglobin 13.1 g/dL (12.0-15.0); Lymphocyte # 4.39 X10^3/ul (0.83-4.51); Lymphocyte % 30.7 % (19-41); Mean Corp Hgb Conc 32.7 g/dL (32-36); Mean Corpuscular Hgb 29.6 pg (27.0-32.0); Mean Corpuscular Volume 90.5 fL (81-99); Mean Platelet Vol. 11.6 fl (6.2-12.0); Monocyte# 0.77 X10^3/uL; Monocyte% 5.4 % (0-10); NRBC Flagged by Analyzer 0 % (0-5); Neutrophil # 8.93 X10^3/uL (2.7-7.7); Neutrophil % 62.6 % (47-70); Platelet Count 309 K/mm3 (150-450); RBC Distribution Width CV 13.3 % (11.6-14.6); RBC Distribution Width SD 43.8 fl (35.1-43.9); Red Blood Count 4.43 M/mm3 (4.2-5.4); White Blood Count 14.3 K/mm3 (4.4-11.0)
[2024-03-30 08:25] VITALS: BP 137/86; PULSE 65; RESP 18; O2SAT 100
[2024-03-30 08:26] LABS: Anion Gap 6 (5-15); BUN 17 mg/dL (7-18); Calcium,Total 8.8 mg/dL (8.5-10.1); Chloride 108 mmol/L (98-107); Creatinine, Serum 0.81 mg/dL (0.55-1.02); EST Glomerular Filtration Rate 94 mL/min (>60); Est Glom Filt Rate - Afr Amer 114 mL/min (>60); Estimated Creatinine Clearance 129.73 ml/min; Glucose 124 mg/dL (74-106); Potassium 3.4 mmol/L (3.5-5.1); Sodium Level 140 mmol/L (136-145); Troponin-I HS (w/2H Reflex) < 3 pg/mL (3.0-54.0)
[2024-03-30 08:28] LABS: D-Dimer Quantitative (DVT/PE) 0.29 FEU/ug/m (0.27-0.49)
[2024-03-30] MEDS: Ketorolac 15 MG/ML Vial IV (08:42)
[2024-03-30] MEDS: Potassium Chloride Oral Tablet 20 MEQ 40 MEQ PO (08:43)
[2024-03-30 09:00] VITALS: BP 167/105; PULSE 67; RESP 18; O2SAT 96
[2024-03-30 09:54] LABS: Reflex Troponin-HS? (from REC) Y
[2024-03-30 10:00] VITALS: BP 137/56; PULSE 76; RESP 18; TEMP 36.6; O2SAT 97
[2024-03-30 10:46] LABS: Troponin-I HS 3 pg/mL (3.0-54.0)
[2024-03-30 11:00] VITALS: BP 141/100; PULSE 66; RESP 18; O2SAT 97
[2024-03-30 11:20] VITALS: BP 139/99; PULSE 75; RESP 16; TEMP 36.8; O2SAT 98
== END 2024-03-30 11:23 | disposition home or self-care (01) ==
PROVIDERS: Emergency Provider Emergency Medicine; PCP Family Medicine; Visit Provider Emergency Medicine
DX: R07.81 Pleurodynia (principal)
CPT/HCPCS: 71045; 80048; 84484; 85025; 85379; 93005; 96374; 99284; A4216

== ENCOUNTER 2024-07-03 02:55 | Emergency (ER) | payer MEDICAID, SELFPAY ==
[2024-07-03 02:56] VITALS: BP 138/86; PULSE 61; RESP 16; TEMP 36.5; O2SAT 99; BMI 43.2
--- NOTE | 2024-07-03 03:16 | RAD_ITS ---
EXAM: XR LEFT RIBS AND AP CHEST, 3 OR MORE VIEWS CLINICAL INDICATION: pain pain TECHNIQUE: Frontal and oblique views of the left ribs and frontal view of the chest. COMPARISON: Chest x-ray 03/30/2024. FINDINGS: LUNGS AND PLEURAL SPACES: Unremarkable. No consolidation or edema. No pneumothorax. No effusion. HEART: Unremarkable. Cardiac silhouette not enlarged. MEDIASTINUM: Central airways and mediastinal contour are unremarkable. BONES/JOINTS: Unremarkable. No evidence of displaced rib fractures. RAD/Ribs Uni Min 3V w/PA Chest IMPRESSION: Negative chest and left ribs series. Electronically Signed: Richard Duarte MD at 4:42 EDT Reading Location ID and State: [facility] / [place] , Service support ,
[2024-07-03] MEDS: Ketorolac 30 MG/ML Syringe IM (03:23)
[2024-07-03] MEDS: Orphenadrine 60 MG/2 ML Ampul IM (03:23)
[2024-07-03 03:30] LABS: Mucous, Urine 0 SEEN /hpf (<or=2+); Red Blood Cells-Urine 0 SEEN /hpf (0-5); Squamous Epithelial Cells - UA 0 SEEN /hpf (5-10); White Blood Cells 0 SEEN /hpf (0-5)
[2024-07-03 03:31] LABS: Color, Urine Yellow (Yellow); Glucose, Dipstick Normal (Normal); Ketone-Dipstick Negative (Negative); Leukocyte Esterase-Dipstick 25 /ul (Negative); Nitrite-Dipstick Negative (Negative); Occult Blood-Urine Negative /ul (Negative); Protein-Dipstick 15 mg/dl (Negative); Urine Bilirubin Dipstick Negative (Negative); Urine Clarity Cloudy (Clear); Urine Urobilinogen 4 mg/dl (Normal)
[2024-07-03 03:42] LABS: Amorphous Sediment 3+; Bacteria RARE /hpf (None Seen); Internal QC Validated? YES +Cl - CLEAR BKGD; Pregnancy, Urine Negative Negative
[2024-07-03] MEDS: Ondansetron ODT 4 MG Tablet PO (04:08)
--- NOTE | 2024-07-03 04:56 | EX.ED.DYSGE1 ---
HPI History of Present Illness Chief Complaint: Chest Other Informant: patient Narrative Narrative: Patient is a 23-year-old female with no significant past medical history. She states that today she noticed pain in the left rib/chest wall. She states that there was no direct trauma nor does she denies any recent coughing symptoms. She denies any family history of cardiac disease at a young age she denies any recent travel or surgery or history of DVT/PE and she denies any illicit drug use. 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 She states that she took Tylenol and Motrin but the pain persisted and she could not sleep and secondary to this she comes in for evaluation [facility] Medical History Enlarged liver Home Medications ?Medication ?Instructions ?Recorded ?Last Taken ?Type methocarbamol 500 mg tablet 1,000 mg (2 x 500 mg) PO 4X/DAY 07/03/24 Unknown Rx PRN Muscle pain/spasm #56 tabs Allergy/AdvReac Type Severity Reaction Status Date / Time sumatriptan (From Imitrex) Allergy Rash Verified 07/03/24 02:56 Family History Grandmother Cancer Hypertension Surgical History Hx of section Hx of dilation and curettage Hx of tonsillectomy [place] teeth removed Social History household members: friend(s) Smoking Status: Never smoker alcohol intake: never substance use type: marijuana ROS ROS ED Constitutional Constitutional ED: Denies chills or fever(s) Eyes Eyes: Denies blurry vision or change in vision ENT ENT ED: Denies sore throat Cardiovascular Cardiovascular: Reports chest pain; Denies palpitations or racing heartbeat Respiratory/Chest Respiratory/Chest: Denies cough or dyspnea Gastrointestinal Gastrointestinal: Denies abdominal pain, diarrhea, nausea or vomiting Genitourinary Genitourinary ED: Denies dysuria Musculoskeletal Musculoskeletal: Denies back pain Integumentary Denies Abrasions or rash Neurologic Neurologic: Denies headache(s) Hematologic/Lymphatic Hematologic/Lymphatic: Denies easy bleeding or easy bruising EXAM Physical Exam Const Vital Signs: 07/03/24 02:56 07/03/24 02:56 Temperature 97.7 F L Temperature Source Oral Pulse Rate 61 Respiratory Rate 16 Respiratory Effort Normal Blood Pressure 138/86 H Blood Pressure Mean 103 Pulse Ox 99 Positive well nourished, well developed and obese General Appearance ED: well developed; Negative for pallor Nutritional Appearance: obese HEENT HEENT Narrative: Normocephalic atraumatic Eyes PERRL and EOMs intact bilaterally General Eye ED: Negative for pale conjunctiva or scleral icterus Neck supple Chest Wall Chest Narrative: There is reproducible pain with palpation of the left anterior lateral chest wall rib regions 10-12. No bony deformity or crepitance noted. This is the same pain the patient states she has been experiencing Resp normal respiratory effort and clear to auscultation bilaterally Cardio regular rate and regular rhythm Rate: other Other Details: Heart is regular rate and rhythm without murmurs rubs or gallops Radial and carotid pulses are equal and symmetric GI normal to inspection, nondistended, normoactive bowel sounds, non-tender, non-distended and no masses Auscultation: normoactive bowel sounds Palpation: soft Back/Spine Back/Spine Narrative: Mild left CVA pain noted Extremity normal to inspection Extremity Narrative: No asymmetric edema no pitting edema negative Homans' sign bilaterally Neuro oriented x3, CN's II-XII intact bilaterally and no sensory deficits noted Sensorium / Orientation: alert Motor Exam: strength 5/5 throughout Psych Psych Narrative: Patient has a flat affect Mood & Affect: depressed Skin no rashes or lesions noted Skin Narrative: No overlying soft tissue changes to suggest trauma or infection General Skin Exam: Negative for jaundice or pallor MDM MDM MDM Narrative Medical decision making narrative: Patient arrived to the ER mildly hypertensive but otherwise with stable vitals. She reported left-sided chest wall/rib pain but denied any recent trauma or excessive activity. She does have faint left CVA pain as well therefore there is concern this could be related to pyelonephritis or kidney stone or potentially complication. Therefore urine sample was obtained which revealed no sign of infection going against UTI/pyelonephritis and no blood was noted going against development of kidney stone. Patient is also negative on her test indicating that her pain is not related. Chart review reveals that she has been seen for this previously roughly 3 months ago in March of this year. At that time she had 2 normal troponins and a normal D-dimer. As she states her pain is very similar to March and she had a negative workup at that time and she is low risk for PE/DVT or acute coronary syndrome I do not feel there is need for further testing. In order to ensure that the chest pain/rib pain is not due to rib fracture or pneumothorax a chest x-ray with rib series will be obtained. X-ray revealed no acute findings and after treatment with Toradol and Norflex patient did have improvement of symptoms. Therefore this time with improvement of symptoms and improvement of vitals as well as negative workup I do not feel there is need for further testing in the ER and she is otherwise safe for discharge History & Record Review Discussion w/independent historian: Patient Lab Data Attestation: I reviewed the patient's lab results. Labs: Laboratory Results - last 24 hr 07/03/24 03:23 Urine Color Yellow Urine Clarity Cloudy Urine pH 7.0 Ur Specific [place] 1.010 Urine Protein 15 H Urine Glucose (UA) Normal Urine Ketones Negative Urine Occult Blood Negative Urine Nitrite Negative Urine Bilirubin Negative Urine Urobilinogen 4 H Ur Leukocyte Esterase 25 H Urine RBC 0 SEEN Urine WBC 0 SEEN Ur Squamous Epith Cells 0 SEEN Amorphous Sediment 3+ Urine Bacteria RARE Urine Mucus 0 SEEN Urine Test Negative Radiography Diagnostic Testing: Clinical Impression(s) from Imaging Studies Ribs w/Chest X-Ray 07/03/24 03:16 IMPRESSION: Negative chest and left ribs series. Electronically Signed: Richard Duarte MD at 4:42 EDT Reading Location ID and State: [facility] / [place] , Service support , Left rib series with 1 view chest as interpreted by the emergency medicine physician reveals no acute rib fracture pneumothorax or pleural effusion Discharge Plan Triage Chief Complaint: Chest Other ED Provider: Reese King Dx/Rx/DC Orders Clinical Impression: Chest wall pain, Rib pain on left side Instructions: ED Strain Chest Wall Prescriptions: New methocarbamol 500 mg tablet 1,000 mg PO 4X/DAY PRN (Reason: Muscle pain/spasm) Qty: 56 0RF Primary Care Provider: Meño Schwab Referrals: Meño Schwab MD [Primary Care Provider] - Activity Restrictions/Additional Instructions: Your workup today indicates this is musculoskeletal in nature and most likely related to the fact you have to lift at work. Continue with Tylenol and or Motrin for pain control and add the Robaxin for muscle spasm. Return to ER should you have any further concerns Print Language: Turkmen Disposition Disposition: Home, Self Care Discharge Date/Time: 07/03/24 05:14
[2024-07-03 05:13] VITALS: BP 121/74; PULSE 87; RESP 18; TEMP 36.3; O2SAT 99
== END 2024-07-03 05:14 | disposition home or self-care (01) ==
PROVIDERS: Emergency Provider Emergency Medicine; PCP Family Medicine; Visit Provider Emergency Medicine
DX: R07.89 Other chest pain (principal); R07.81 Pleurodynia; F12.90 Cannabis use, unspecified, uncomplicated
CPT/HCPCS: 71101; 81001; 81025; 96372; 99282

== ENCOUNTER 2025-03-09 14:32 | Emergency (ER) | payer SELFPAY ==
[2025-03-09 14:33] VITALS: BP 123/72; PULSE 75; RESP 16; TEMP 36.7; O2SAT 99; BMI 47.5
--- NOTE | 2025-03-09 14:50 | ED.VIS.GI ---
HPI HPI - GI History of Present Illness Chief Complaint: Abd Pain Informant: patient Abdominal Pain/Flank Pain Onset: Today Context: Gradual Onset Timing: Continuous Quality: Stabbing Location: Epigastric, RUQ and LUQ Worsened by: Nothing Relieved by: - (Laying down) Nausea/Vomiting/Emesis GI Symptom: Positive for Nausea and Vomiting Quality: Positive for Nonbilious; Negative for Blood streaks, Coffee ground or Hematemesis Diarrhea/Melena/Hematochezia GI Symptom: Negative for Diarrhea, Melena or Hematochezia Associated Symptoms Associated Symptoms: Negative for Dysuria, Frequency or Hematuria Narrative Narrative: Patient presents with abdominal pain that began today. Patient states it started in her back and then went to her upper abdomen. Patient describes it as stabbing. Patient states it is constant. Patient states nothing makes it worse. Patient states it is better when she is able to lay down. Patient admits to some nausea and vomiting. Patient denies any hematemesis or coffee-ground emesis. Patient denies any diarrhea, melena, or hematochezia. Patient denies any dysuria, frequency, or hematuria. Patient states her last menstrual period was approximately 2 weeks ago. [facility] Medical History Enlarged liver Home Medications ?Medication ?Instructions ?Recorded ?Last Taken ?Type methocarbamol 500 mg tablet 1,000 mg (2 x 500 mg) PO 4X/DAY 07/03/24 Unknown Rx PRN Muscle pain/spasm #56 tabs Allergy/AdvReac Type Severity Reaction Status Date / Time sumatriptan (From Imitrex) Allergy Rash Verified 03/09/25 14:35 Family History Grandmother Cancer Hypertension Surgical History Hx of section Hx of dilation and curettage [place] teeth removed Hx of tonsillectomy Social History household members: friend(s) Smoking Status: Never smoker alcohol intake: never substance use type: marijuana ROS ROS ED Constitutional Constitutional ED: Denies chills or fever(s) Eyes Eyes: Denies blurry vision or change in vision ENT ENT ED: Denies rhinorrhea or sore throat Cardiovascular Cardiovascular: Denies chest pain or palpitations Respiratory/Chest Respiratory/Chest: Denies cough or dyspnea Gastrointestinal Gastrointestinal: Denies nausea or vomiting Genitourinary Genitourinary ED: Denies dysuria or hematuria Musculoskeletal Musculoskeletal: Reports back pain; Denies neck pain Integumentary Denies abscess or rash Neurologic Neurologic: Denies headache(s) or weakness Allergic/Immunologic Allergic/Immunologic ED: Denies mouth swelling or urticaria EXAM Physical Exam Const Vital Signs: 03/09/25 14:33 03/09/25 16:32 03/09/25 17:56 Temperature 98.1 F 98.1 F Temperature Source Oral Pulse Rate 75 70 70 Respiratory Rate 16 16 Blood Pressure 123/72 H 108/73 106/67 Blood Pressure Mean 89 84 80 Pulse Ox 99 99 Oxygen Delivery Method Room Air Positive well nourished and well developed General Appearance ED: well developed and NAD HEENT Reports moist mucous membranes Neck supple and no JVD Resp normal respiratory effort and clear to auscultation bilaterally Cardio regular rate and regular rhythm GI non-distended Palpation: soft and tender epigastric, LUQ and RUQ; Negative for guarding or rebound tenderness present Neuro CN's II-XII intact bilaterally, moves all extremities and no sensory deficits noted Sensorium / Orientation: alert Motor Exam: strength 5/5 throughout Psych mental status grossly normal MDM MDM MDM Narrative Medical decision making narrative: Differential diagnosis includes gastritis, pancreatitis, peptic ulcer disease, duodenal ulcer, colitis, urinary tract infection, pyelonephritis, bowel obstruction, perforation, and . CBC will be obtained to assess for leukocytosis and anemia. Comprehensive metabolic profile will be obtained to assess for hepatic function, renal function, and electrolyte abnormality. Lipase will be obtained to assess for pancreatitis. Serum hCG will be obtained to assess for . Urinalysis will be obtained to assess for urinary tract infection and hematuria. CT scan of the abdomen and pelvis will be obtained to assess for bowel obstruction, perforation, pancreatitis, and colitis. History & Record Review Additional record(s) reviewed:: Prior ED visit and Prior labs Lab Data Attestation: I reviewed the patient's lab results. Lab results narrative: CBC was reviewed and was within normal limits. Comprehensive metabolic profile was reviewed and showed a slightly elevated AST of 137 and ALT of 73. The remainder was within normal limits. Lipase was reviewed and was normal at 33. Serum hCG was reviewed and was negative. Urinalysis was reviewed. There is no evidence of urinary tract infection or hematuria. Labs: Laboratory Results - last 24 hr 03/09/25 03/09/25 15:20 16:05 WBC 10.1 RBC 4.23 Hgb 13.1 Hct 38.8 MCV 91.7 MCH 31.0 MCHC 33.8 RDW Std Deviation 41.3 RDW Coeff of Thao 12.4 Plt Count 304 MPV 11.4 Immature Gran % (Auto) 0.300 Neut % (Auto) 72.3 H Lymph % (Auto) 23.0 [place] % (Auto) 3.7 Eos % (Auto) 0.5 Baso % (Auto) 0.2 Absolute Neuts (auto) 7.3 Absolute Lymphs (auto) 2.33 Nucleated RBC % 0 Sodium 137 Potassium 3.9 Chloride 105 Carbon Dioxide 21.1 Anion Gap 11 BUN 9 Creatinine 0.80 Estim Creat Clear Calc 139.64 Est GFR (MDRD) Non-Af 107 BUN/Creatinine Ratio 11.7 Glucose 135 H Calcium 9.2 Total Bilirubin 0.59 AST 137 H ALT 73 H Alkaline Phosphatase 61 Total Protein 6.9 Albumin 4.1 Globulin 2.8 Albumin/Globulin Ratio 1.4 Lipase 33 Serum , Qual NEGATIVE Urine Color Yellow Urine Clarity Clear Urine pH 6.5 Ur Specific [place] 1.015 Urine Protein 15 H Urine Glucose (UA) Normal Urine Ketones Negative Urine Occult Blood Negative Urine Nitrite Negative Urine Bilirubin Negative Urine Urobilinogen Normal Ur Leukocyte Esterase Negative Urine RBC 0 SEEN Urine WBC 0 SEEN Ur Squamous Epith Cells 0-5 SEEN Urine Bacteria 1+ Urine Mucus 0 SEEN Radiography Diagnostic Testing: Clinical Impression(s) from Imaging Studies Abdomen/Pelvis CT 03/09/25 15:50 IMPRESSION: NORMAL CT ABDOMEN AND PELVIS WITH CONTRAST. Reading [facility] scan of the abdomen pelvis was obtained. There is no evidence of bowel obstruction or perforation. There is no free air or free fluid. There is no acute intra-abdominal process. This was interpreted by the radiologist and was also independently reviewed by myself. Treatment and Re-Evaluation :: Patient was given IV fluids, morphine, and Zofran. Patient was advised of her findings. Patient was instructed to start with a bland diet and advance as tolerated. Patient was instructed to follow-up with her primary care physician in 5 to 7 days. Patient was instructed to return if worse in any way. Patient understood and was agreeable with the plan. All questions were answered. Discharge Plan Triage Chief Complaint: Abd Pain ED Provider: Deuce Levy Dx/Rx/DC Orders Clinical Impression: Abdominal pain, Body mass index (BMI) of 40.0 to 49.9 Instructions: ED Abdominal Pain Unkn Cause Fem Prescriptions: No Action methocarbamol 500 mg tablet 1,000 mg PO 4X/DAY PRN (Reason: Muscle pain/spasm) Qty: 56 0RF Primary Care Provider: Meño Schwab Referrals: Meño Schwab MD [Primary Care Provider] - 5-7 Days Print Language: Korean Disposition Disposition: Home, Self Care Discharge Date/Time: 03/09/25 17:57
[2025-03-09 15:30] LABS: Absolute Lymphocyte Count 2.33 X10^3/uL (0.83-4.51); Absolute Neutrophil Count 7.3 X10^3/uL (2.0-7.7); Basophil# 0.02 X10^3/uL; Basophil% 0.2 % (0-1); Eosinophil# 0.05 X10^3/uL; Eosinophils% 0.5 % (0-5); Hematocrit 38.8 % (37-47); Hemoglobin 13.1 g/dL (12.0-15.0); Lymphocyte # 2.33 X10^3/ul (0.83-4.51); Mean Corp Hgb Conc 33.8 g/dL (32-36); Mean Corpuscular Volume 91.7 fL (81-99); Mean Platelet Vol. 11.4 fl (6.2-12.0); Monocyte# 0.38 X10^3/uL; Monocyte% 3.7 % (0-10); NRBC Flagged by Analyzer 0 % (0-5); Neutrophil # 7.33 X10^3/uL (2.7-7.7); Neutrophil % 72.3 % (47-70); Platelet Count 304 K/mm3 (150-450); RBC Distribution Width CV 12.4 % (11.6-14.6); RBC Distribution Width SD 41.3 fl (35.1-43.9); Red Blood Count 4.23 M/mm3 (4.2-5.4); White Blood Count 10.1 K/mm3 (4.4-11.0)
[2025-03-09] MEDS: Ondansetron 4 MG/2 ML Vial IV (15:33)
[2025-03-09] MEDS: Morphine 4 MG/ML Syringe IV (15:33)
[2025-03-09] MEDS: 0.9% Normal Saline (1000mL) 1,000 ML 999 ML IV (15:35)
[2025-03-09 15:43] LABS: Internal QC Validated? YES +Cl - CLEAR BKGD; Pregnancy, Serum, hCG Quali. NEGATIVE Negative
[2025-03-09 15:45] LABS: ALB/GLOB Ratio 1.4 RATIO (0.9-2.4); AST(SGOT) 137 U/L (<=31); Alanine Aminotransfer ALT/SGPT 73 U/L (<=34); Albumin, Serum 4.1 g/dL (3.5-5.0); Alkaline Phosphatase 61 U/L (35-104); Anion Gap 11 (5-15); BUN 9 mg/dL (4-19); BUN/Creat Ratio 11.7 RATIO (10-20); Calcium,Total 9.2 mg/dL (7.6-11.0); Carbon Dioxide 21.1 mmol/L (21.0-32.0); Chloride 105 mmol/L (98-108); EST Glomerular Filtration Rate 107 (>60); Estimated Creatinine Clearance 139.64 ml/min (50-250); Globulin 2.8 g/dL (2.2-4.2); Glucose 135 mg/dL (70-99); Lipase 33 U/L (13-75); Potassium 3.9 mmol/L (3.3-5.1); Protein, Total 6.9 g/dL (5.9-8.4); Sodium Level 137 mmol/L (133-145); Total Bilirubin 0.59 mg/dL (0.00-1.30)
--- NOTE | 2025-03-09 15:50 | CT_ITS ---
PROCEDURE: ABDOMEN/PELVIS W IV CONT ONLY 03/09/2025 REASON FOR EXAM: ABDOMINAL PAIN TECHNIQUE: Abdomen and pelvis CT with intravenous contrast. Coronal and Sagittal reconstruction series were provided. PATIENT PREPARATION: Per protocol ORAL CONTRAST TYPE: None. AMOUNT: mL CONTRAST: Isovue 370 VOLUME: 98 mL Not Provided Gauge IV One or more dose reduction techniques were used (e.g., Automated exposure control, adjustment of the mA and/or kV according to patient size, use of iterative reconstruction technique. RADIATION DOSE SUMMARY: CTDlvol: 24 mGy DLP: 1363 mGycm COMPARISON: None FINDINGS: Lung bases: Unremarkable Liver: Normal size. No mass. Gallbladder: Unremarkable Spleen: Normal size. Pancreas: Normal size without evidence of mass surrounding inflammation or ductal dilation. Adrenals: Unremarkable Kidneys: Normal renal sizes. No hydronephrosis. Bladder: Unremarkable Reproductive Organs: Normal uterine size and contour. Ovaries are unremarkable. Bowel: Unremarkable Appendix: Unremarkable Lymph nodes: No lymphadenopathy. Vasculature: The abdominal aorta and IVC are normal. Peritoneum / Retroperitoneum: No free air or free fluid. Bones: Unremarkable CT/Abdomen/Pelvis W IV Cont ONLY IMPRESSION: NORMAL CT ABDOMEN AND PELVIS WITH CONTRAST. Reading Location: [place]
[2025-03-09 16:16] LABS: Mucous, Urine 0 SEEN /hpf (<or=2+); Red Blood Cells-Urine 0 SEEN /hpf (0-5); White Blood Cells 0 SEEN /hpf (0-5)
[2025-03-09 16:22] LABS: Color, Urine Yellow (Yellow); Glucose, Dipstick Normal (Normal); Ketone-Dipstick Negative (Negative); Leukocyte Esterase-Dipstick Negative /ul (Negative); Nitrite-Dipstick Negative (Negative); Occult Blood-Urine Negative /ul (Negative); Protein-Dipstick 15 mg/dl (Negative); Specific Gravity, Urine 1.015 (1.002-1.030); Urine Bilirubin Dipstick Negative (Negative); Urine Clarity Clear (Clear); Urine Urobilinogen Normal (Normal); Urine pH 6.5 (5.0 - 8.0)
[2025-03-09 16:32] VITALS: BP 108/73; PULSE 70
[2025-03-09 16:36] LABS: Bacteria 1+ /hpf (None Seen); Squamous Epithelial Cells - UA 0-5 SEEN /hpf (5-10)
[2025-03-09 17:56] VITALS: BP 106/67; PULSE 70; RESP 16; TEMP 36.7; O2SAT 99
== END 2025-03-09 17:57 | disposition home or self-care (01) ==
PROVIDERS: Emergency Provider Emergency Medicine; PCP Family Medicine; Visit Provider Emergency Medicine
DX: R10.9 Unspecified abdominal pain (principal); M54.9 Dorsalgia, unspecified
CPT/HCPCS: 74177; 80053; 81001; 83690; 84703; 85025; 96361; 96374; 96375; 99282; Q9967; A4216; J2405

== ENCOUNTER 2025-03-11 03:36 | Emergency (ER) | payer SELFPAY ==
[2025-03-11 03:37] VITALS: BP 128/61; PULSE 71; RESP 18; TEMP 35.9; O2SAT 99; BMI 48.2
--- NOTE | 2025-03-11 03:56 | EX.ED.DYSGE1 ---
HPI History of Present Illness Chief Complaint: Abd Pain Informant: patient Narrative Narrative: Patient is a 24-year-old female with past medical history of herniated lumbar disc. She was seen on March 09 the secondary to upper abdominal pain and at that time had basic labs a urine sample and CT scan with IV. Labs and urine sample revealed no clinically significant findings and CT scan failed to reveal any type of abdominal pathology. Patient states she was feeling better after the evaluation on Monday. She states that the rest of Monday and Monday she was doing well and went to bed normally. She states she then awoke with upper abdominal discomfort and nausea. She denies any recent trauma or excessive activity and she states that there has been no sick contact. However with the pain returning she presents for repeat evaluation. [facility] Medical History Enlarged liver Home Medications ?Medication ?Instructions ?Recorded ?Last Taken ?Type methocarbamol 500 mg tablet 1,000 mg (2 x 500 mg) PO 4X/DAY 07/03/24 Unknown Rx PRN Muscle pain/spasm #56 tabs ondansetron 4 mg disintegrating 4 mg PO TID PRN nausea and 03/11/25 Unknown Rx tablet vomiting #21 tabs oxycodone-acetaminophen 5 mg-325 1 tab PO Q6H PRN pain 3 days #12 03/11/25 Unknown Rx mg tablet (Percocet) tabs Allergy/AdvReac Type Severity Reaction Status Date / Time sumatriptan (From Imitrex) Allergy Rash Verified 03/11/25 03:36 Family History Grandmother Cancer Hypertension Surgical History Hx of section Hx of dilation and curettage [place] teeth removed Hx of tonsillectomy Social History household members: friend(s) Smoking Status: Never smoker alcohol intake: never substance use type: marijuana ROS ROS ED Constitutional Constitutional ED: Denies chills or fever(s) Eyes Eyes: Denies change in vision ENT ENT ED: Denies sore throat Cardiovascular Cardiovascular: Denies chest pain Respiratory/Chest Respiratory/Chest: Denies cough or dyspnea Gastrointestinal Gastrointestinal: Reports abdominal pain and nausea; Denies diarrhea or vomiting Genitourinary Genitourinary ED: Denies dysuria or hematuria Musculoskeletal Musculoskeletal: Reports back pain and other Details: Patient reports back pain is chronic in nature Integumentary Denies rash Neurologic Neurologic: Denies headache(s) Hematologic/Lymphatic Hematologic/Lymphatic: Denies easy bleeding or easy bruising EXAM Physical Exam Const Vital Signs: 03/11/25 03:37 Temperature 96.6 F L Temperature Source Axillary Pulse Rate 71 Respiratory Rate 18 Blood Pressure 128/61 H Blood Pressure Mean 83 Pulse Ox 99 Oxygen Delivery Method Room Air Positive well nourished, well developed and obese General Appearance ED: well developed; Negative for pallor Nutritional Appearance: obese HEENT Reports moist mucous membranes HEENT Narrative: No tongue or lip swelling no oral lesions no airway edema or compromise No secondary findings in the posterior pharynx to suggest infection Eyes PERRL and EOMs intact bilaterally General Eye ED: Negative for scleral icterus Neck supple Neck Narrative: No nuchal rigidity or meningeal signs Resp normal respiratory effort and clear to auscultation bilaterally Cardio regular rate and regular rhythm Rate: other Other Details: Heart is regular rate and rhythm without murmurs rubs or gallop Radial and carotid pulses are equal and symmetric GI non-distended and no masses GI Narrative: Abdomen is obese soft and nondistended with normal active bowel sounds. There is pain on palpation in the midepigastric and right upper quadrant region. However it is greatest in the right upper quadrant region with positive voluntary guarding at this site. No pulsatile mass or fluid wave. No rigidity or peritoneal signs. No increased tympany. Auscultation: normoactive bowel sounds Palpation: soft Extremity normal to inspection Neuro oriented x3, CN's II-XII intact bilaterally and no sensory deficits noted Sensorium / Orientation: alert Motor Exam: strength 5/5 throughout Psych Mood & Affect: anxious and tearful Skin no rashes or lesions noted and no wounds General Skin Exam: Negative for jaundice or pallor MDM MDM MDM Narrative Medical decision making narrative: Patient arrived to the ER with stable vitals. She reported sudden onset of midepigastric to right upper quadrant pain. Her chart from the previous visit was reviewed and labs revealed no clinically significant findings and her CT scan showed no acute abdominal pathology. Therefore this time I did not feel the need for an emergent CT scan but repeat laboratory studies were necessary in order to check for changes from the previous day such as elevation of the lipase to suggest pancreatitis or change in liver enzymes to suggest biliary colic or acute cholecystitis. White count remains normal going against a stomach infection there is no left shift. Creatinine is normal going against contrast-induced nephropathy from her previous CT scan. Her lipase is normal going against pancreatitis. Her AST and ALT are elevated and they are slightly higher than the previous day which suggest potentially biliary colic. However as she is afebrile without leukocytosis concern for acute cholecystitis is low and I do not feel the need for repeat CT scan. After receiving IV Toradol and Benadryl and fluids she has had significant improvement of her pain. Aguayo sign remains negative. Therefore I do not feel there is a need for an emergent abdominal ultrasound but this can be done as an outpatient. Patient will be given an order for this and placed on Percocet for pain control and is otherwise safe for discharge. She understands she needs to return if she develops a fever or intractable pain despite taking her medication. History & Record Review Discussion w/independent historian: Patient Lab Data Attestation: I reviewed the patient's lab results. Labs: Laboratory Results - last 24 hr 03/11/25 04:04 WBC 9.2 RBC 4.45 Hgb 13.7 Hct 40.8 MCV 91.7 MCH 30.8 MCHC 33.6 RDW Std Deviation 41.7 RDW Coeff of Thao 12.5 Plt Count 324 MPV 11.4 Immature Gran % (Auto) 0.200 Neut % (Auto) 52.6 Lymph % (Auto) 40.6 [place] % (Auto) 5.2 Eos % (Auto) 1.2 Baso % (Auto) 0.2 Absolute Neuts (auto) 4.9 Absolute Lymphs (auto) 3.74 Nucleated RBC % 0 Sodium 139 Potassium 3.9 Chloride 104 Carbon Dioxide 24.0 Anion Gap 11 BUN 12 Creatinine 1.03 Estim Creat Clear Calc 109.33 Est GFR (MDRD) Non-Af 79 BUN/Creatinine Ratio 11.9 Glucose 120 H Calcium 9.9 Total Bilirubin 0.48 Direct Bilirubin 0.31 H AST 165 H ALT 190 H Alkaline Phosphatase 71 Total Protein 7.4 Albumin 4.2 Globulin 3.1 Lipase 46 Discharge Plan Triage Chief Complaint: Abd Pain ED Provider: Reese King Dx/Rx/DC Orders Clinical Impression: Right upper quadrant abdominal pain, Body mass index (BMI) of 40.0 to 49.9, Nausea Instructions: ED Abdominal Pain Gallstone Poss Prescriptions: New ondansetron 4 mg tablet,disintegrating 4 mg PO TID PRN (Reason: nausea and vomiting) Qty: 21 0RF oxycodone-acetaminophen [Percocet] 5-325 mg tablet 1 tab PO Q6H PRN (Reason: pain) 3 Days Qty: 12 0RF No Action methocarbamol 500 mg tablet 1,000 mg PO 4X/DAY PRN (Reason: Muscle pain/spasm) Qty: 56 0RF Other Ambulatory Orders: Gallbladder (Routine) Facility: [facility] [place] - Location: [facility] Ordered By: Dr. Reese King Primary Care Provider: Meño Schwab Referrals: Meño Schwab MD [Primary Care Provider] - Activity Restrictions/Additional Instructions: Your history and exam is consistent with gallbladder dysfunction. In order to help prevent reoccurrence of symptoms eat a bland diet and eat smaller portions more frequently. Obtain your outpatient gallbladder ultrasound to further assess for potential gallstones and/or infection as a cause of your symptoms and return to the ER should you have any further concerns Print Language: [place] Citizen Disposition Disposition: Home, Self Care Discharge Date/Time: 03/11/25 05:23
[2025-03-11] MEDS: 0.9% Normal Saline (1000mL) 1,000 ML 999 ML IV (04:02)
[2025-03-11] MEDS: DiphenhydrAMINE 50 MG/ML Syringe 25 MG IV (04:02)
[2025-03-11] MEDS: Ketorolac 30 MG/ML Syringe IV (04:03)
[2025-03-11 04:19] LABS: Absolute Lymphocyte Count 3.74 X10^3/uL (0.83-4.51); Absolute Neutrophil Count 4.9 X10^3/uL (2.0-7.7); Basophil# 0.02 X10^3/uL; Basophil% 0.2 % (0-1); Eosinophil# 0.11 X10^3/uL; Eosinophils% 1.2 % (0-5); Hematocrit 40.8 % (37-47); Hemoglobin 13.7 g/dL (12.0-15.0); Lymphocyte # 3.74 X10^3/ul (0.83-4.51); Lymphocyte % 40.6 % (19-41); Mean Corp Hgb Conc 33.6 g/dL (32-36); Mean Corpuscular Hgb 30.8 pg (27.0-32.0); Mean Corpuscular Volume 91.7 fL (81-99); Mean Platelet Vol. 11.4 fl (6.2-12.0); Monocyte# 0.48 X10^3/uL; Monocyte% 5.2 % (0-10); NRBC Flagged by Analyzer 0 % (0-5); Neutrophil # 4.85 X10^3/uL (2.7-7.7); Neutrophil % 52.6 % (47-70); Platelet Count 324 K/mm3 (150-450); RBC Distribution Width CV 12.5 % (11.6-14.6); RBC Distribution Width SD 41.7 fl (35.1-43.9); Red Blood Count 4.45 M/mm3 (4.2-5.4); White Blood Count 9.2 K/mm3 (4.4-11.0)
[2025-03-11 04:39] LABS: AST(SGOT) 165 U/L (<=31); Alanine Aminotransfer ALT/SGPT 190 U/L (<=34); Albumin, Serum 4.2 g/dL (3.5-5.0); Alkaline Phosphatase 71 U/L (35-104); Anion Gap 11 (5-15); BUN 12 mg/dL (4-19); BUN/Creat Ratio 11.9 RATIO (10-20); Bilirubin, Direct 0.31 mg/dL (0.00-0.30); Calcium,Total 9.9 mg/dL (7.6-11.0); Chloride 104 mmol/L (98-108); Creatinine, Serum 1.03 mg/dL (0.70-1.20); EST Glomerular Filtration Rate 79 (>60); Estimated Creatinine Clearance 109.33 ml/min (50-250); Globulin 3.1 g/dL (2.2-4.2); Glucose 120 mg/dL (70-99); Lipase 46 U/L (13-75); Potassium 3.9 mmol/L (3.3-5.1); Protein, Total 7.4 g/dL (5.9-8.4); Sodium Level 139 mmol/L (133-145); Total Bilirubin 0.48 mg/dL (0.00-1.30)
[2025-03-11] MEDS: oxyCODONE 5 MG Tablet PO (05:19)
[2025-03-11 05:23] VITALS: BP 119/72; PULSE 74; RESP 14; TEMP 36.7; O2SAT 99
--- NOTE | 2025-03-12 13:33 | ED.RN ---
Called patient at Dr Wolfe request. Pt given number for Dr Davenport
== END 2025-03-11 05:23 | disposition home or self-care (01) ==
PROVIDERS: Emergency Provider Emergency Medicine; PCP Family Medicine; Visit Provider Emergency Medicine
DX: R10.11 Right upper quadrant pain (principal); E66.9 Obesity, unspecified; R11.0 Nausea
CPT/HCPCS: 80048; 80076; 83690; 85025; 96361; 96374; 96375; 99283; A4216

== ENCOUNTER → 2025-03-12 | Outpatient (CLI) | payer SELFPAY ==
--- NOTE | 2025-03-12 10:57 | US_ITS ---
PROCEDURE: ABDOMEN LIMITED 03/12/2025 REASON FOR EXAM: RIGHT UPPER QUADRANT ABDOMINAL PAIN COMPARISON: CT abdomen pelvis 02/2025. FINDINGS: Liver: Diffusely echogenic suggesting fatty infiltration. Normal-size measuring 18.8 cm. The bile ducts are within normal limits. The main portal vein is patent with normal directional flow. Gallbladder: The gallbladder is distended with questionable small gallstone and mild dependent sludge. No gallbladder wall thickening or pericholecystic fluid. Negative Aguayo sign reported by cytotechnologist/histotechnologist. Common bile duct: Normal measuring 0.7 cm. Pancreas: Visualized portions are sonographically unremarkable. Other: Visualized portions of the right kidney are unremarkable. No right upper quadrant ascites. US/Abdomen Limited IMPRESSION: 1. Questionable cholelithiasis. No evidence of acute cholecystitis. 2. Mild hepatic steatosis. Reading Location: [id number]
== END | disposition home or self-care (01) ==
PROVIDERS: PCP Family Medicine; Referring Provider Emergency Medicine; Visit Provider Emergency Medicine
DX: R10.11 Right upper quadrant pain (principal)
CPT/HCPCS: 76705

== ENCOUNTER 2025-09-16 07:11 | Emergency (ER) | payer SELFPAY ==
[2025-09-16 07:12] VITALS: BP 130/85; PULSE 110; RESP 18; TEMP 37.1; O2SAT 100; BMI 46.7
--- NOTE | 2025-09-16 07:26 | US_ITS ---
PROCEDURE: GALLBLADDER 09/16/2025 REASON FOR EXAM: PAIN TECHNIQUE: Procedure Code: USGB Modality: US Procedure: GALLBLADDER FINDINGS: Patient body habitus limits evaluation. A 2.5 cm simple-appearing anechoic cyst is noted within the right lobe of the liver. The liver is at the upper limit of normal in size, measuring 18.2 cm in its greatest dimension. The echogenicity of the liver is likely within normal limits, however limited evaluation. The common bile duct measures 3.4 mm in diameter. Grossly, the gallbladder appears unremarkable without intraluminal sludge or stones. No gallbladder wall thickening or pericholecystic fluid is identified. The right kidney appears grossly unremarkable. The peripancreatic areas grossly unremarkable. US/Gallbladder IMPRESSION: Liver cyst measuring 2.5 cm. Reading Location: [id number]
--- NOTE | 2025-09-16 07:27 | ED.VIS.GI ---
HPI HPI - GI History of Present Illness Chief Complaint: Abd Pain Detail of Chief Complaint: Abdominal pain Informant: patient Narrative Narrative: Patient presents to the emergency department with complaint of abdominal pain intermittently for about a week. Pain more consistent over the last 3 days. She describes nausea and vomited 1 time last night. Denies diarrhea. Denies blood in her stool or black tarry stool. Patient believes she is having a gallbladder attack. Patient states that she had a gallbladder attack in April of this year and was referred to a surgeon but she thinks she passed the stone so she never followed up. Patient denies fever. Food tends to make the pain worse. Pain worse with lying flat. Pain sometimes radiates into her chest and its mostly located in the right upper quadrant. She denies urinary symptoms. Does not believe she is . Patient with history of in 2022. [facility] Medical History Enlarged liver Home Medications ?Medication ?Instructions ?Recorded ?Last Taken ?Type methocarbamol 500 mg tablet 1,000 mg (2 x 500 mg) PO 4X/DAY 07/03/24 Unknown Rx PRN Muscle pain/spasm #56 tabs ondansetron 4 mg disintegrating 4 mg PO TID PRN nausea and 03/11/25 Unknown Rx tablet vomiting #21 tabs hydrocodone-acetaminophen 5-325mg 1 tab PO Q4H PRN pain 3 days #14 09/16/25 Unknown Rx 5mg-325mg tabs omeprazole 40 mg capsule,delayed 40 mg PO DAILY #30 caps 09/16/25 Unknown Rx release ondansetron 4 mg disintegrating 4 mg PO Q6H PRN nausea and 09/16/25 Unknown Rx tablet vomiting #14 tabs Allergy/AdvReac Type Severity Reaction Status Date / Time sumatriptan (From Imitrex) Allergy Rash Verified 09/16/25 07:12 Family History (Updated 03/17/25 @ 14:08 by Mai Arenas) Grandmother Cancer Hypertension Brother Asthma Surgical History Hx of section Hx of dilation and curettage [place] teeth removed Hx of tonsillectomy Social History household members: friend(s) Smoking Status: Never smoker alcohol intake: never substance use type: marijuana ROS ROS ED Review of Systems ROS Unobtainable: other Constitutional Constitutional ED: Reports lethargy; Denies chills, fever(s), sweats or weight loss Eyes Eyes: Denies blurry vision, change in vision or diplopia ENT ENT ED: Denies rhinorrhea or sore throat Cardiovascular Cardiovascular: Denies chest pain, orthopnea or racing heartbeat Respiratory/Chest Respiratory/Chest: Denies cough, dyspnea, dyspnea on exertion, orthopnea or sputum Gastrointestinal Gastrointestinal: Reports abdominal pain, nausea and vomiting; Denies diarrhea Genitourinary Genitourinary ED: Denies dysuria, hematuria or urinary frequency Musculoskeletal Musculoskeletal: Denies arthralgias, back pain, myalgias or neck pain Integumentary Denies abscess, Abrasions or rash Neurologic Neurologic: Denies headache(s) or weakness Psychiatric Psychiatric: Denies anxiety, depression or suicidal thoughts Endocrine Endocrinology: Denies polydipsia, polyphagia or polyuria Hematologic/Lymphatic Hematologic/Lymphatic: Denies easy bleeding, easy bruising or lymphadenopathy Allergic/Immunologic Allergic/Immunologic ED: Denies mouth swelling, tongue swelling or urticaria EXAM Physical Exam Const Vital Signs: 09/16/25 07:12 09/16/25 09:11 Temperature 98.7 F Temperature Source Oral Pulse Rate 110 H 79 Respiratory Rate 18 16 Blood Pressure 130/85 H 130/74 H Blood Pressure Mean 100 92 Pulse Ox 100 100 Oxygen Delivery Method Room Air Room Air Positive well nourished and well developed General Appearance ED: well developed and NAD HEENT Reports TM's clear and moist mucous membranes normocephalic and atraumatic; Negative for trauma or tenderness Tympanic Membrane ED: Yes TM's clear Eyes PERRL and EOMs intact bilaterally General Eye ED: Negative for pale conjunctiva or scleral icterus Neck no lymphadenopathy, supple and no JVD General: Negative for tenderness Chest Wall inspection of chest normal and palpation of chest normal Chest: Negative for tenderness Resp normal respiratory effort and clear to auscultation bilaterally Effort and Inspection: Negative for respiratory distress or pain with movement Auscultation: Negative for rhonchi, wheezes or diminished lung sounds Cardio regular rate, regular rhythm, S1 normal heart sound, S2 normal heart sound and no murmurs Peripheral Pulses: pulses 2+ throughout GI normal to inspection, nondistended, normoactive bowel sounds, soft to palpation, non-distended and no masses GI Narrative: Tenderness palpation over the right upper quadrant with guarding. Positive Aguayo sign. No rebound or rigidity Back/Spine no CVA tenderness and no thoracic nor lumbar tenderness Extremity normal to inspection General Extremety ED: Negative for edema General Extremity: Negative for edema Neuro oriented x3, CN's II-XII intact bilaterally, no sensory deficits noted and gait normal Sensorium / Orientation: awake, alert, oriented to person, oriented to place and oriented to time Motor Exam: strength 5/5 throughout and strength abnormal Psych mental status grossly normal Skin no rashes or lesions noted and no wounds MDM MDM MDM Narrative Medical decision making narrative: Abdominal pain ongoing for at least a week. Concern for gallbladder. Patient had an IV line established. She was given Zofran for nausea. She did not want morphine for pain. CBC with differential obtained showed a white count of 12.6 with hemoglobin 13.9 and platelet count of 313. Chemistries unremarkable. LFTs were normal. Lipase normal at 29. hCG was negative. Urinalysis normal. Gallbladder ultrasound essentially normal. She also had a CT scan of the abdomen pelvis that was unremarkable. Discussed case with general surgeon on-call Dr. Gustafson who recommended starting patient on omeprazole and ordering outpatient HIDA scan and she will follow-up patient in the office. Patient will be given a prescription for Zofran as well as [place] for pain. Lab Data Attestation: I reviewed the patient's lab results. Labs: Laboratory Results - last 24 hr 09/16/25 09/16/25 07:30 08:15 WBC 12.6 H RBC 4.53 Hgb 13.9 Hct 41.3 MCV 91.2 MCH 30.7 MCHC 33.7 RDW Std Deviation 41.8 RDW Coeff of Thao 12.7 Plt Count 313 MPV 11.5 Immature Gran % (Auto) 0.200 Neut % (Auto) 61.5 Lymph % (Auto) 30.0 [place] % (Auto) 6.4 Eos % (Auto) 1.6 Baso % (Auto) 0.3 Absolute Neuts (auto) 7.7 Absolute Lymphs (auto) 3.76 Nucleated RBC % 0 Sodium 140 Potassium 3.8 Chloride 105 Carbon Dioxide 23.6 Anion Gap 11 BUN 11 Creatinine 0.79 Estim Creat Clear Calc 138.75 Est GFR (MDRD) Non-Af 109 BUN/Creatinine Ratio 13.4 Glucose 109 H Lactic Acid 1.4 Calcium 9.4 Total Bilirubin 0.31 AST 14 ALT 17 Alkaline Phosphatase 53 Total Protein 7.4 Albumin 4.2 Globulin 3.2 Albumin/Globulin Ratio 1.3 Lipase 29 Serum , Qual NEGATIVE Urine Color Yellow Urine Clarity Clear Urine pH 6.5 Ur Specific [place] 1.020 Urine Protein Negative Urine Glucose (UA) Normal Urine Ketones Negative Urine Occult Blood 50 H Urine Nitrite Negative Urine Bilirubin Negative Urine Urobilinogen Normal Ur Leukocyte Esterase Negative Urine RBC 0 SEEN Urine WBC 0 SEEN Ur Squamous Epith Cells 0-5 SEEN Urine Bacteria 0 SEEN Urine Mucus 0 SEEN Radiography Diagnostic Testing: Clinical Impression(s) from Imaging Studies Gallbladder Ultrasound 09/16/25 07:26 IMPRESSION: Liver cyst measuring 2.5 cm. Reading Location: [facility] Abdomen/Pelvis CT 09/16/25 08:32 IMPRESSION: Fluid within the uterine cavity. Please correlate with the patient's menstrual cycle. Otherwise no acute abdominal or pelvic process is identified. Reading Location: [facility] Discharge Plan Triage Chief Complaint: Abd Pain ED Provider: No Toussaint Dx/Rx/DC Orders Clinical Impression: Abdominal pain Instructions: ED Abdominal Pain Unkn Cause Fem Prescriptions: New omeprazole 40 mg capsule,delayed release(DR/EC) 40 mg PO DAILY Qty: 30 0RF ondansetron 4 mg tablet,disintegrating 4 mg PO Q6H PRN (Reason: nausea and vomiting) Qty: 14 0RF hydrocodone-acetaminophen 5-325 mg tablet 1 tab PO Q4H PRN (Reason: pain) 3 Days Qty: 14 0RF No Action methocarbamol 500 mg tablet 1,000 mg PO 4X/DAY PRN (Reason: Muscle pain/spasm) Qty: 56 0RF ondansetron 4 mg tablet,disintegrating 4 mg PO TID PRN (Reason: nausea and vomiting) Qty: 21 0RF Other Ambulatory Orders: Hepatobilliary Img w/Pharm Int (Routine) Facility: [facility] - Location: [facility] Ordered By: Dr. No Toussaint Primary Care Provider: Meño Schwab Referrals: Meño Schwab MD [Primary Care Provider, Family Practice] Davina Gustafson MD [Med Staff - Active Staff, General Surgery] - 5-7 Days Print Language: [place] Disposition Disposition: Home, Self Care
[2025-09-16] MEDS: 0.9% Normal Saline (1000mL) 1,000 ML 125 ML IV (07:33)
--- OUTSIDE RECORDS SUMMARY | 2025-09-16 07:43 | XMS RPT_ITS | CCD ---
Author Organization [facility] Care Team Providers Care Resident Manager Name Role Phone Elvira Momin Unavailable Unavailable Elvira Momin Unavailable Unavailable Barry Reeves Unavailable Unavailable Elvira Momin Unavailable Unavailable Elvria Momin Unavailable Unavailable Barry Reeves Unavailable Unavailable Barry Reeves Unavailable Unavailable LEANDRO ABERNATHY, DR REDDY Primary Care Physician [phone] LEANDRO ABERNATHY, DR REDDY Primary Care Physician Barry Reeves MD Primary Care Provider Barry Reeves MD Primary Care Provider LEANDRO ABERNATHY, DR REDDY Primary Care Physician Barry Reeves MD Primary Care Provider Barry Reeves MD Primary Care Provider Barb Campuzanoia Efua Unavailable Indu Benítez Femrin Unavailable Barry Reeves MD Primary Care Provider Rae Arriola Unavailable Unavailable Indu Benítez Fermin Unavailable Barry Reeves MD Primary Care Provider TATIANNA SOCO E Referring Unavailable INDU BENÍTEZ Attending Unavailable BARRY REEVES Primary Care Unavailable TATIANNA, SOCO E Referring Unavailable INDU BENÍTEZ Attending Unavailable BARRY REEVES Primary Care Unavailable BARRY REEVES Primary Care Unavailable TATIANNA, SOCO E Referring Unavailable INDU BENÍTEZ Attending Unavailable BARRY REEVES Primary Care Unavailable TATIANNA, SOCO E Referring Unavailable INDU BENÍTEZ Attending Unavailable BARRY REEVES Primary Care Unavailable TATIANNA, SOCO E Referring Unavailable INDU BENÍTEZ Attending Unavailable BARRY REEVES Primary Care Unavailable TATIANNA, SOCO Adele Referring Unavailable INDU BENÍTEZ Attending Unavailable TATIANNA, SOCO E Referring Unavailable BARRY REEVES Primary Care Unavailable ELVIRA GARAY Attending Unavailable Gary ESPINOSA, Rae Unavailable Unavailable Barry Reeves MD Primary Care Provider TATIANNA ABERNATHY, SOCO Attending Unavailable LEANDRO ABERNATHY, DR REDDY Primary Care Unavailable TATIANNA ABERNATHY, SOCO Attending Unavailable LEANDRO ABERNATHY, DR REDDY Primary Care Unavailable ETHEL MARTE MD Attending Unavailable LEANDRO ABERNATHY, DR REDDY Primary Care Unavailable ETHEL MARTE MD Attending Unavailable LEANDRO ABERNATHY, DR REDDY Primary Care Unavailable YA CARROLL MD Attending Unavailable LEANDRO ABERNATHY, DR REDDY Primary Care Unavailable TATIANNA ABERNATHY, SOCO Attending Unavailable LEANDRO ABERNATHY, DR REDDY Primary Care Unavailable GLEN ABERNATHY, KAITLIN Attending Unavailable LEANDRO ABERNATHY, DR REDDY Primary Care Unavailable KAITLIN CARROLL MD Admitting Unavailable SOCO CAMPUZANO MD Attending Unavailable LEANDRO ABERNATHY, DR REDDY Primary Care Unavailable KAITLIN CARROLL MD Attending Unavailable LEANDRO ABERNATHY, DR REDDY Primary Care Unavailable TATIANNA ABERNATHY, SOCO Attending Unavailable LEANDRO ABERNATHY, DR REDDY Primary Care Unavailable TATIANNA ABERNATHY, SOCO Attending Unavailable LEANDRO ABERNATHY, DR REDDY Primary Care Unavailable TATIANNA ABERNATHY, SOCO Attending Unavailable LEANDRO ABERNATHY, DR REDDY Primary Care Unavailable TATIANNA ABERNATHY, SOCO Attending Unavailable LEANDRO ABERNATHY, DR REDDY Primary Care Unavailable ETHEL MARTE MD Attending Unavailable LEANDRO ABERNATHY, DR REDDY Primary Care Unavailable SOCO CAMPUZANO MD Attending Unavailable LEANDRO ABERNATHY, DR REDDY Primary Care Unavailable KAITLIN CARROLL MD Attending Unavailable LEANDRO ABERNATHY, DR REDDY Primary Care Unavailable LEANDRO ABERNATHY, DR REDDY Primary Care Unavailable FITO THORNTON MD Admitting Unavailable FITO THORNTON MD Attending Unavailable NAIF ABERNATHY, DR INDU Hicks Consulting ETHEL Milan MD Attending Unavailable LEANDRO ABERNATHY, DR REDDY Primary Care Unavailable SOCO CAMPUZANO MD Attending Unavailable LEANDRO ABERNATHY, DR REDDY Primary Care Unavailable SOCO CAMPUZANO MD Attending Unavailable LEANDRO ABERNATHY, DR REDDY Primary Care Unavailable ETHEL MARTE MD Attending Unavailable LEANDRO ABERNATHY, DR REDDY Primary Care Unavailable ETHEL MARTE MD Attending Unavailable LEANDRO ABERNATHY, DR REDDY Primary Care Unavailable ETHEL MARTE MD Attending Unavailable LEANDRO ABERNATHY, DR REDDY Primary Care Unavailable TATIANNA ABERNATHY, SOCO Attending Unavailable LEANDRO ABERNATHY, DR REDDY Primary Care Unavailable WILMAR ABERNATHY, FRANKO Attending Unavailable LEANDRO ABERNATHY, DR REDDY Primary Care Unavailable WILMAR ABERNATHY, FRANKO Attending Unavailable LEANDRO ABERNATHY, DR REDDY Primary Care Unavailable GINA GONZALEZ MD Attending Unavailable LEANDRO ABERNATHY, DR REDDY Primary Care Unavailable JANEEN ABERNATHY, ETHEL Angulo Attending Unavailable LEANDRO ABERNATHY, DR REDDY Primary Care Unavailable TATIANNA ABERNATHY, SOCO Attending Unavailable LEANDRO ABERNATHY, DR REDDY Primary Care Unavailable GLEN ABERNATHY, KAITLIN Attending Unavailable LEANDRO ABERNATHY, DR REDDY Primary Care Unavailable LEANDRO ABERNATHY, DR REDDY Primary Care Unavailable LGEN ABERNATHY, KAITLIN Attending Unavailable ETHEL MARTE MD Attending Unavailable LEANDRO ABERNATHY, DR REDDY Primary Care Unavailable JANEEN ABERNATHY, ETHEL Angulo Attending Unavailable LEANDRO ABERNATHY, DR REDDY Primary Care Unavailable TATIANNA ABERNATHY, SOCO Attending Unavailable LEANDRO ABERNATHY, DR REDDY Primary Care Unavailable GELACIO GRANADO, ANTONIO R Attending Melissa REEVES MD, DR REDDY Primary Care Unavailable GELACIO GRANADO, ANTONIO Bigg Admitting SOCO Solis MD Attending Unavailable LEANDRO ABERNATHY, DR REDDY Primary Care Unavailable KAITLIN CARROLL MD Attending Unavailable LEANDRO ABERNATHY, DR REDDY Primary Care Unavailable ETHEL MARTE MD Attending Unavailable LEANDRO ABERNATHY, DR REDDY Primary Care Unavailable ETHEL MARTE MD Attending Unavailable LEANDRO ABERNATHY, DR REDDY Primary Care Unavailable TATIANNA ABERNATHY, SOCO Attending Unavailable LEANDRO ABERNATHY, DR REDDY Primary Care Unavailable ETHEL MARTE MD Attending Unavailable LEANDRO ABERNATHY, DR REDDY Primary Care Unavailable SOCO CAMPUZANO MD Attending Unavailable LEANDRO ABERNATHY, DR REDDY Primary Care Unavailable TATIANNA ABERNATHY, SOCO Attending Unavailable LEANDRO ABERNATHY, DR REDDY Primary Care Unavailable BELINDA PRUITT MD Attending Unavail able LEANDRO ABERNATHY, DR REDDY Primary Care Unavailable LEANDRO ABERNATHY, DR REDDY Primary Care Unavailable BLAINE WHITLEY DO Attending Unavailable VERNON BRIONES DO Attending Unavailable LEANDRO ABERNATHY, DR REDDY Primary Care Unavailable Leandro ABERNATHY, Dr. Reddy Primary Care Provider Cam BEGUM, Dr. Tripathi Emergency Provider Cam BEGUM, Dr. Tripathi Attending Provider Christine BEGUM, Dr. Leigh Attending Provider Christine DO, Dr. Leigh Emergency Provider Andbertha DO, Dr. Leigh Referring Provider Leandro ABERNATHY, Dr. Reddy Referring Provider Haile ABERNATHY, Dr. Sahu Attending Provider [phone] Rajesh Gaxiola Attending Provider [phone] Leandro, Barry Primary Care Unavailable Leandro, Barry Referring Unavailable Rajesh Gaxiola Attending Unavailable Leandro, Barry Primary Care Unavailable AndReese stone Attending Unavailable Leandro, Barry Primary Care Unavailable Reese King Attending Unavailable Deuce Levy Attending Unavailable Leandro, Barry Primary Care Unavailable CalabrLuis Alberto henriquez Attending Unavailable Leandro, Barry Primary Care Unavailable Leandro, Barry Primary Care Unavailable Andes, Reese Referring Unavailable AndReese stone Attending Unavailable Leandro, Barry Referring Unavailable Leandro, Barry Primary Care Unavailable Luis Alberto Be Attending Unavailable LEANDRO, BARRY ALEXSANDER Primary Care Unavailab LINK Coleman Attending Unavailable LEANDRO, BARRY ALEXSANDER Primary Care Unavailab LINK Coleman Attending Unavailable LEANDRO, BARRY ALEXSANDER Primary Care Unavailab OSITO Leonard Referring Unavailable LEANDRO, BARRY ALEXSANDER Primary Care Unavailab OSITO Leonard Attending Unavailable SELF Referring Unavailable Allergies Allergy Classification Reported Allergen(s) Allergy Type Date of Onset Reaction(s) Facility Serotonin-1b and Serotonin-1d Receptor Agonists (1 source) SUMAtriptan Drug Allergy 8 Mental Status Change, Rash [facility] (20 sources) SUMAtriptan; Translations: [Imitrex] Drug Allergy AOF, Rash [facility] (20 sources) SUMAtriptan; Translations: [SUMATRIPTAN] Drug Allergy 7 Mental Status Change, Rash, Other: See Comments [facility] (1 source) SUMAtriptan Drug Allergy [facility] Repository Medications Current Medications Medication Drug Class(es) Dates Sig (Normalized) Sig (Original) acetaminophen 500 mg oral tablet (20 sources) Start: 11-12-2023 End: 12-10-2023 Tylenol Extra Strength 500 mg oral tablet Dose : 500 mg = 1 tab(s), Oral, q4h, X 14 day(s), # 30 tab(s), 1 Refill(s), 12/10/23 9:02:00 AM EST, Pharmacy: [facility], 160, cm, 11/12/23 5:44:00 EST, Height, kg, 11/12/23 5:44:00 EST, Dosing Weight Start Date: 11/12/23 Stop Date: 12/10/23 Status: Ordered Start: 08-05-2022 Tylenol 325 mg oral capsule Dose : 325 mg = 1 cap(s), Oral, q6h, # 40 cap(s), 0 Refill(s), Pharmacy: [facility], 160, cm, 07/27/22 13:28:00 EDT, Height Start Date: 08/05/22 Status: Ordered Start: 03-04-2022 acetaminophen Dose : 650 mg = 2 tab(s), Oral, q6h, 0 Refill(s) Start Date: 03/04/22 Status: Ordered Start: 03-03-2022 Tylenol Oral, PRN as needed for pain, 0 Refill(s) Start Date: 03/03/22 Status: Ordered acetaminophen 325 mg / HYDROcodone bitartrate 5 mg oral tablet (1 source) Opioid Agonist Start: 08-01-2022 End: 08-04-2022 take 1 tablet by mouth every six hours as needed for pain Naches 325- 5 mg oral tablet Dose = 1 tab(s), Oral, q6h, PRN As needed for severe pain, X 3 day(s), # 12 tab(s), 0 Refill(s), Complete miscarriage, 109 Start Date: 08/01/22 Stop Date: 08/04/22 Status: Ordered [id number] 200 actuat albuterol 0.09 mg/actuat metered dose inhaler (18 sources) beta2-Adrenergic Agonist Start: 12-12-2022 End: 04-16-2025 take 2 puff(s) by inhalation every four hours as needed albuterol HFA (PROAIR HFA) 90 mcg/actuation inhaler Indications: Community acquired pneumonia, unspecified laterality Inhale 2 puffs as instructed every 4 hours as needed. 1 each 04/16/2025 Active Comment on above: Inhale 2 Puffs as in structed every 4 hours as needed. Alcohol Swabs (20 sources) Start: 06-26-2023 Alcohol Swabs See Instructions, Check 4x/Day.any brand covered., # 200 EA, 3 Refill(s), Pharmacy: [facility], Gestational diabetes, 160, cm, 06/26/23 13:42:00 EDT, Height, 111.4, kg, 05/24/23 13:56:00 EDT, Dosing Weight Start Date: 06/26/23 Status: Ordered amoxicillin 875 mg oral tablet (10 sources) Penicillin-class Antibacterial Start: 06-16-2025 End: 06-21-2025 take 1 tablet by mouth twice daily amoxicillin (AMOXIL) 875 mg tablet Take 1 tablet by mouth two times a day for 5 days. 10 tablet 06/16/2025 06/21/2025 Active Start: 09-24-2021 amoxicillin 50 0 mg oral capsule 0 Refill(s) Start Date: 09/24/21 Status: Ordered Start: 06-06-2021 amoxicillin (P OLYMOX, AMOXIL) 500 mg capsule Take 1,000 mg by mouth twice daily. 0 06/06/2021 Active Comment on above: Take 1,000 mg by daniel th twice daily. Blood Glucose Test Machine (20 sources) Start: 06-26-2023 Blood Glucose Test Machine See Instructions, Check 4x/Day, fasting and 1 hour pp. any brand covered., # 1 EA, 3 Refill(s), Pharmacy: [facility], Gestational diabetes, 160, cm, 06/26/23 13:42:00 EDT, Height, 111.4, kg, 05/24/23 13:56:00 EDT, Dosing Weight Start Date: 06/26/23 Status: Ordered Calcium Carbonate (20 sources) Start: 06-05-2023 Tums Dose : 1,000 mg =, Chewed, qDay, PRN as needed for dyspepsia, 0 Refill(s) Start Date: 06/05/23 Status: Ordered Start: 06-05-2023 Tums Dose : 1, 000 mg =, Chewed, qDay, 0 Refill(s) Start Date: 06/05/23 Status: Ordered citric acid 0.01 mg/mg / lactic acid 0.018 mg/mg / potassium bitartrate 0.004 mg/mg vaginal gel (7 sources) Calculi Dissolution Agent, Anti-coagulant Start: 05-14-2024 Phexxi 1.8%-1%-0.4 % vaginal gel See Instructions, PRN Other (see order comments) before or up to 1 hour before intercourse, 1 appl Vaginal up to 1 hour before intercourse, # 12 insert, 3 Refill(s), Pharmacy: [facility], 160, cm, 01/11/24 21:05:00 EST, Height, kg, 01/11/24 21:05:00 EST, Dosing Weight Start Date: 05/14/24 Status: Ordered Quantity: 12.0 Unit: insert Repeat number: 4 Start: 12-12-2023 Phexxi vaginal gel Dose = 1 appl, Vaginal, AsDirected, PRN Other (see order comments) before or up to 1 hour before intercourse, before or up to 1 hour before intercourse, # 5 gram(s), 11 Refill(s), Pharmacy: [facility], 160, cm, 11/12/23 5:44:00 EST, Height, kg, 12/12/23 14:58:00 EST, Dosing Weight Start Date: 12/12/23 Status: Ordered diphenhydrAMINE hydrochloride 25 mg oral tablet (4 sources) Histamine-1 Receptor Antagonist Start: 07-12-2022 End: 07-12-2023 Unisom 25mg oral tablet Dose : 25 mg = 1 tab(s), Oral, TID, Start with 1 at bedtime and increase to one in am and bedtime if nausea persists,, # 48 tab(s), 0 Refill(s), 07/12/23 13:28:00 EDT, Pharmacy: [facility], Secondary amenorrhea, 160, cm, 07/12/22 10:56... Start Date: 07/12/22 Stop Date: 07/12/23 Status: Ordered docusate sodium 100 mg oral tablet (20 sources) Start: 06-05-2023 take 1 dose by mouth twice daily as needed for constipation Dulcolax Stool Softener Dose : 100 mg =, Oral, BID, PRN as needed for constipation, 0 Refill(s) Start Date: 06/05/23 Status: Ordered Repeat number: 1 doxycycline monohydrate 100 mg oral tablet (4 sources) Tetracycline-cla ss Drug Start: 04-16-2025 End: 04-23-2025 take 1 tablet by mouth twice daily doxycycline monohydrate 100 mg tablet Indications: Community acquired pneumonia, unspecified laterality Take 1 tablet by mouth two times a day for 7 days. 14 tablet 04/16/2025 04/23/2025 Active Start: 06-19-2024 End: 06-26-2024 doxycycline hyclate 100 mg o ral capsule Dose : 100 mg = 1 cap(s), Oral, BID, X 7 day(s), # 14 cap(s), 0 Refill(s), 06/26/24 2:08:00 PM EDT, Pharmacy: [facility], Cellulitis, 160, cm, 06/19/24 13:53:00 EDT, Height, 108.5, kg, 06/19/24 13:53:00 EDT, Dosing Weight Start Date: 06/19/24 Stop Date: 06/26/24 Status: Ordered Start: 08-08-2022 End: 08-18-2022 doxycycline hyclate 100 mg o ral capsule Dose : 100 mg = 1 cap(s), Oral, BID, X 10 day(s), # 20 cap(s), 0 Refill(s), 08/18/22 14:56:00 EDT, Pharmacy: [facility], 160, cm, 07/27/22 13:28:00 EDT, Height, 108.4 Start Date: 08/08/22 Stop Date: 08/18/22 Status: Ordered ferrous sulfate 325 mg oral tablet (20 sources) Start: 09-12-2023 End: 01-15-2024 IRON (ferrous sulfate 325 mg ) 65 mg oral tablet Dose : 325 mg = 1 tab(s), Oral, qDay, Take with food., # 60 tab(s), 3 Refill(s), Pharmacy: [facility], 160, cm, 09/12/23 14:45:00 EDT, Height, kg, 08/10/23 16:52:00 EDT, Dosing Weight Start Date: 09/12/23 Status: Ordered Quantity: 60.0 Unit: tab(s) Repeat number: 4 Start: 03-04-2022 ferrous sulfat e 325 mg (65 mg elemental iron) oral delayed release tablet Dose : 325 mg = 1 tab(s), Oral, qDay, # 60 tab(s), 3 Refill(s), Pharmacy: [facility], 160, cm, 03/04/22 8:27:00 EDT, Height Start Date: 03/04/22 Status: Ordered Comment on above: Take 325 mg by mouth once daily. hydrOXYzine pamoate 25 mg oral capsule (20 sources) Antihistamine Start: 08-15-2023 Vistaril 25 mg oral capsule Dose : 25 mg = 1 cap(s), Oral, QID, PRN for anxiety, # 40 cap(s), 3 Refill(s), Pharmacy: [facility], 160, cm, 08/11/23 10:18:00 EDT, Height, kg, 08/10/23 16:52:00 EDT, Dosing Weight Start Date: 08/15/23 Status: Ordered Quantity: 40.0 Unit: cap(s) Repeat number: 4 ibuprofen 800 mg oral tablet (20 sources) Nonsteroidal Anti-inflammatory Drug Start: 11-12-2023 End: 11-26-2023 ibuprofen 800 mg oral tablet Dose : 800 mg = 1 tab(s), Oral, q8h, X 14 day(s), # 42 tab(s), 0 Refill(s), 11/26/23 9:02:00 AM EST, Pharmacy: [facility], 160, cm, 11/12/23 5:44:00 EST, Height, kg, 11/12/23 5:44:00 EST, Dosing Weight Start Date: 11/12/23 Stop Date: 11/26/23 Status: Ordered Start: 08-05-2022 ibuprofen 600 mg oral tablet Dose : 600 mg = 1 tab(s), Oral, q6h, PRN for pain, Take with food or milk., # 40 tab(s), 0 Refill(s), Pharmacy: [facility], 160, cm, 07/27/22 13:28:00 EDT, Height Start Date: 08/05/22 Status: Ordered Start: 03-04-2022 IBU 600 mg ora l tablet Dose : 600 mg = 1 tab(s), Oral, q6h, # 30 tab(s), 0 Refill(s), Pharmacy: [facility], 160, cm, 03/04/22 8:27:00 EDT, Height Start Date: 03/04/22 Status: Ordered Start: 10-02-2020 ibuprofen 600 mg oral tablet Dose : 600 mg = 1 tab(s), Oral, q6h, PRN for pain, Take with food or milk. Start Date: 10/02/20 Status: Ordered Start: 01-20-2017 take 2 tablets by mo uth every six hours as needed for pain ibuprofen (MOTRIN) 200 mg tablet Indications: Influenza-like illness Take 2 tablets by mouth every 6 hours as needed for Pain (Take with food.). 60 tablet 0 01/20/2017 Active Comment on above: Take 2 tablets by mo uth every 6 hours as needed for Pain (Take with food.). ketoconazole 10 mg/ml medicated shampoo (6 sources) Azole Antifungal Start: 09-13-20 ketoconazole 1% topical shampoo Topical, q3day, 0 Refill(s), 107.7 Start Date: 09/13/22 Status: Ordered ketorolac tromethamine 10 mg oral tablet (1 source) Nonsteroidal Anti-inflammatory Drug, Cyclooxygenase Inhibitor Start: 10-05-20 End: 10-10-20 ketorolac 10 mg oral tablet Dose : 10 mg = 1 tab(s), Oral, q6h, X 5 day(s), # 20 tab(s), 0 Refill(s), 10/10/24 3:53:00 PM EST Start Date: 10/05/24 Stop Date: 10/10/24 Status: Ordered methocarbamol 500 mg oral tablet (2 sources) Muscle Relaxant Start: 07-03-20 take 2 tablets by mouth four times daily as needed for pain Methocarbamol 500 mg tablet Active 1000 mg PO 4 TIMES DAILY as needed for Muscle pain/spasm 56 0 July 03, 2024 4:58am metroNIDAZOLE 500 mg oral tablet (3 sources) Nitroimidazole Antimicrobial Start: 07-22-20 End: 07-29-20 metroNIDAZOLE 500 mg oral tablet Dose : 500 mg = 1 tab(s), Oral, q12h, X 7 day(s), # 14 tab(s), 0 Refill(s), 07/29/23 8:49:00 PM EDT, Pharmacy: [facility], 160, cm, 07/22/23 17:36:00 EDT, Height, 112, kg, 07/22/23 17:36:00 EDT, Dosing Weight Start Date: 07/22/23 Stop Date: 07/29/23 Status: Ordered Start: 08-08-2022 End: 08-18-2022 metroNIDAZOLE 500 mg oral ta blet Dose : 500 mg = 1 tab(s), Oral, q12h, X 10 day(s), # 20 tab(s), 0 Refill(s), 08/18/22 14:57:00 EDT, Pharmacy: [facility], 160, cm, 07/27/22 13:28:00 EDT, Height, 108.4 Start Date: 08/08/22 Stop Date: 08/18/22 Status: Ordered naproxen 500 mg oral tablet (1 source) Nonsteroidal Anti-inflammatory Drug Start: 01-11-2024 End: 01-17-2024 naproxen 500 mg oral tablet Dose : 500 mg = 1 tab(s), Oral, BID, PRN as needed for pain, # 20 tab(s), 0 Refill(s), 01/17/24 10:35:00 PM EST Start Date: 01/11/24 Stop Date: 01/17/24 Status: Ordered nystatin 100 unt/mg topical powder (1 source) Polyene Antifungal Start: 07-05-2022 End: 07-12-2022 nystatin (MYCOSTATIN) powder Apply 1 application to affected area four times daily for 7 days. 60 g 0 07/05/2022 07/12/2022 Active Comment on above: Apply 1 application to affected area four times daily for 7 days. ofloxacin 3 mg/ml otic solution (2 sources) Quinolone Antimicrobial Start: 07-28-2025 End: 08-04-2025 ofloxacin (FLOXIN) 0.3 % otic solution Use 10 drops in the right ear once daily for 7 days. 4 mL 07/28/2025 08/04/2025 Active ondansetron 4 mg disintegrating oral tablet (14 sources) Serotonin-3 Receptor Antagonist Start: 03-11-2025 take 1 tablet by mouth three times daily as needed for nausea and vomiting Ondansetron 4 mg tablet,disintegr ating Active 4 mg PO THREE TIMES A DAY as needed for nausea and vomiting March 11, 2025 5:10am Start: 07-04-2024 End: 07-07-2024 Zofran 4 mg oral tablet Dose : 4 mg = 1 tab(s), Oral, q6h, PRN As needed for nausea and vomiting, X 3 day(s), # 12 tab(s), 0 Refill(s), 07/07/24 4:17:00 AM EDT Start Date: 07/04/24 Stop Date: 07/07/24 Status: Ordered Start: 09-10-2023 End: 09-15-2023 Zofran 4 mg oral tablet Dose : 4 mg = 1 tab(s), Oral, q8h, PRN Nausea/Vomiting, X 5 day(s), # 15 tab(s), 0 Refill(s), 09/15/23 1:55:00 PM EDT Start Date: 09/10/23 Stop Date: 09/15/23 Status: Ordered Start: 07-21-2022 End: 09-19-2022 Zofran 4 mg oral tablet Dose : 4 mg = 1 tab(s), Oral, q6h, PRN Nausea/Vomiting, X 30 day(s), # 30 tab(s), 1 Refill(s), 09/19/22 11:01:00 EDT, Pharmacy: [facility], 160, cm, 07/18/22 11:02:00 EDT, Height Start Date: 07/21/22 Stop Date: 09/19/22 Status: Ordered Prenat.Vits,Jessi,Yxa-Pjsg-Gac ic (4 sources) Start: 12-29-2021 take 1 tablet by mouth once daily Prenat.Vits,Jessi,Cwg-Erex-Vvtwc Active 1 TABLET PO DAILY December 29, 2021 12:00am Start: 12-29-2021 take 1 tablet by daniel th once daily Prenat.Vits,Jessi,Gcm-Xcbj-Vxkmu Active 1 TABLET PO DAILY December 29, 2021 1:00am Multivitamins (7 sources) Start: 01-28-2022 take 1 tablet by mouth once daily Multivitamins Dose = 1 tab(s), Oral, qDay, 0 Refill(s) Start Date: 01/28/22 Status: Ordered Multivitamins with Vitamin B Complex, Vitamin C, Minerals and L-Methylfolate oral capsule (20 sources) Start: 07-27-2022 take 1 capsule by mouth once daily Multivitamins with Vitamin B Complex, Vitamin C, Minerals and L-Methylfolate oral capsule Dose = 1 cap(s), Oral, Daily, 0 Refill(s) Start Date: 07/27/22 Status: Ordered Repeat number: 1 Start: 07-27-2022 take 1 capsule by mo [facility] once daily Multivitamins with Vitamin B Complex, Vitamin C, Minerals and L-Methylfolate oral capsule Dose = 1 cap(s), Oral, Daily, 0 Refill(s) Start Date: 07/27/22 Status: Ordered Plus Low Iron oral tablet (2 sources) Start: 09-24-2021 Plus Low Iron oral tablet 0 Refill(s) Start Date: 09/24/21 Status: Ordered vit no.124/iron/fol ic ( VITAMIN ORAL) (15 sources) vit no. 124/iron/folic ( VITAMIN ORAL) Take by mouth. Active vit no. 124/iron/folic ( VITAMIN ORAL) Take by mouth. 0 Active Comment on above: Take by mouth. progesterone 200 mg oral capsule (20 sources) Progesterone Start: 08-23-2023 progesterone 200 mg oral capsule 0 Refill(s) Start Date: 08/23/23 Status: Ordered Start: 04-03-2023 End: 07-31-2023 Prometrium 200 mg oral capsu le Dose : 200 mg = 1 cap(s), Oral, qDay, X 14 day(s), # 14 cap(s), 4 Refill(s), 07/31/23 10:14:00 AM EDT, Pharmacy: [facility], 6 weeks gestation of Habitual aborter, 160, cm, 05/22/23 9:35:00 EDT, Height, kg, 04/28/23 15:48:00 EDT, Dosing Weight Start Date: 05/22/23 Stop Date: 07/31/23 Status: Ordered Start: 07-27-2022 End: 09-07-2022 Prometrium 100 mg oral capsu le Dose : 400 mg = 4 cap(s), Oral, qDay, # 14 cap(s), 2 Refill(s), Pharmacy: [facility], Threatened BMI 40.0-44.9, adult, 160, cm, 07/27/22 13:28:00 EDT, Height Start Date: 07/27/22 Stop Date: 09/07/22 Status: Ordered Start: 07-27-2022 End: 10-18-2023 progesterone micronized (PRO METRIUM) 200 mg capsule Take 400 mg by mouth. 0 07/27/2022 10/18/2023 Discontinued Comment on above: Take 400 mg by mouth . sulfamethoxazole 800 mg / trimethoprim 160 mg oral tablet (1 source) Dihydrofolate Reductase Inhibitor Antibacterial, Sulfonamide Antimicrobial Start: End: take 1 tablet by mouth twice daily sulfamethoxazole- trimethoprim (BACTRIM DS) 800-160 mg per tablet Take 1 tablet by mouth twice daily for 3 days. 6 tablet 0 07/05/2022 07/08/2022 Active Comment on above: Take 1 tablet by daniel twice daily for 3 days. tranexamic acid 650 mg oral tablet (2 sources) Antifibrinolytic Agent Start: tranexamic acid 650 mg oral tablet Dose : 1,300 mg = 2 tab(s), Oral, TID, # 12 tab(s), 0 Refill(s), Pharmacy: [facility], 160, cm, 03/04/22 8:27:00 EDT, Height Start Date: 4/15/22 Status: Ordered Vitamin B6 50 mg oral tablet (4 sources) Start: End: Vitamin B6 50 mg oral tablet Dose : 50 mg = 1 tab(s), Oral, Daily, Startwith 1 at bedtime and increase to 1 in am and 1 at bedtime if nausea persists, X 14 day(s), # 14 tab(s), 0 Refill(s), 07/26/22 13:28:00 EDT, Pharmacy: [facility], Secondary amenorrhea, 160, cm... Start Date: 07/12/22 Stop Date: 07/26/22 Status: Ordered Completed/Discontinued Medications Medication Drug Class(es) Dates Sig (Normalized) Sig (Original) acetaminophen 325 mg / oxyCODONE hydrochloride 5 mg oral tablet (2 sources) Opioid Agonist Start: 03-11-2025 End: 03-17-2025 Oxycodone-Acetamino phen (Percocet) 5-325 mg tablet Discontinued 1 {tbl} PO EVERY 6 HOURS as needed for pain 12 3 0 March 11, 2025 March 17, 2025 2:11pm Right upper quadrant abdominal pain Right upper quadrant pain Start: 11-12-2023 End: 11-19-2023 take 1 tablet by mouth every six hours as needed for pain Percocet 5 mg-325 mg oral tablet Dose = 1 tab(s), Oral, q6hr, PRN for pain, X 7 day(s), # 20 tab(s), 0 Refill(s), [facility]acy: [id number], Postoperative pain, 160, cm, 11/12/23 5:44:00 EST, Height, 117, kg, 11/12/23 5:44:00 EST, Dosing Weight Start Date: 11/12/23 Stop Date: 11/19/23 Status: Ordered aspirin 81 mg delayed release oral tablet (20 sources) Platelet Aggregation Inhibitor, Nonsteroidal Anti-inflammatory Drug Start: 03-26-2023 End: 07-03-2024 take 1 tablet by mouth once daily Aspirin (Aspir-81) 81 mg Tablet,Delayed Release (Dr/Ec) Discontinued 81 mg PO DAILY March 26, 2023 12:00am July 03, 2024 2:56am Start: 08-30-2022 End: 01-15-2024 take 1 tablet by mouth once daily aspirin 81 mg chewable tablet chew 1 (ONE) tablet BY MOUTH ONCE DAILY 0 08/30/2022 01/15/2024 Discontinued Comment on above: chew 1 (ONE) tablet BY MOUTH ONCE DAILY cephalexin 500 mg oral capsule (6 sources) Cephalosporin Antibacterial Start: 3 End: 4 take 1 capsule by mouth twice daily Cephalexin 500 mg capsule Discontinued 500 mg PO TWICE A DAY 10 March 26, 2023 12:00am July 03, 2024 2:56am folic acid 1 mg oral tablet (12 sources) Start: 3 End: 4 take 1 tablet by mouth once daily Folic Acid 1 mg Tablet Discontinued 1 mg PO DAILY March 26, 2023 12:00am July 03, 2024 2:56am Start: 07-27-2022 folic acid 1 m g oral tablet Dose : 1 mg = 1 tab(s), Oral, qDay, # 30 tab(s), 1 Refill(s), [facility]acy: [id number], Threatened BMI 40.0-44.9, adult, 160, cm, 07/27/22 13:28:00 EDT, Height Start Date: 07/27/22 Status: Ordered medroxyPROGESTERone acetate 10 mg oral tablet (4 sources) Progestin Start: 06-19-2022 take 1 tablet by mouth once daily medroxyPROGESTERone (PROVERA, CYCRIN) 10 mg tablet Take 10 mg by mouth once daily. 0 06/19/2022 Active Comment on above: Take 10 mg by mouth once daily. metFORMIN hydrochloride 500 mg oral tablet (20 sources) Biguanide Start: 11-07-2022 End: 10-18-2023 take 1 tablet by mouth once daily metFORMIN ER (GLUCOPHAGE XR) 500 mg 24 hr tablet Take 1 tablet by mouth once daily. 90 tablet 3 11/07/2022 10/18/2023 Discontinued Start: 09-01-2022 End: 07-03-2024 take 1 tablet by mouth once daily Metformin 500 mg Tablet Discontinued 500 mg PO DAILY March 26, 2023 12:00am July 03, 2024 2:56am Comment on above: Take 1 tablet by daniel once daily. miSOPROStol 0.2 mg oral tablet (8 sources) Prostaglandin E1 Analog Start: 08-06-2022 End: 08-08-2022 Cytotec 200 mcg oral tablet Dose : 400 mcg = 2 tab(s), Oral, TID, # 12 tab(s), 0 Refill(s) Start Date: 08/06/22 Stop Date: 08/08/22 Status: Ordered Start: 08-01-2022 End: 08-01-2022 miSOPROStol 200 mcg oral tab let Dose : 600 mcg = 3 tab(s), Oral, q6hr, # 6 tab(s), 0 Refill(s), Pharmacy: [facility], 160, cm, 07/27/22 13:28:00 EDT, Height Start Date: 08/01/22 Stop Date: 08/01/22 Status: Ordered Start: 03-04-2022 Cytotec 200 mc g oral tablet Dose : 400 mcg = 2 tab(s), Oral, TID, # 18 tab(s), 0 Refill(s), Pharmacy: [id number], 160, cm, 03/04/22 8:27:00 EDT, Height Start Date: 03/04/22 Status: Ordered PNV w/o Calcium-Iron Fum-FA 29 mg iron- 1 mg (7 sources) Start: 05-04-2021 take 1 tablet by mouth once daily PNV w/o Calcium-Iron Fum-FA 29 mg iron- 1 mg Take 1 tablet by mouth once daily. 30 tablet 11 05/04/2021 Active Comment on above: Take 1 tablet by [facility] once daily. Prenat.Vits,Jessi,Min -Iron-Folic tablet (2 sources) Start: 12-29-2021 End: 07-03-2024 Prenat.Vits,Jessi,Mi k-Hnjd-Hqycl tablet Discontinued 1 {tbl} PO DAILY December 29, 2021 1:00am July 03, 2024 2:56am progesterone 100 mg vaginal suppository (4 sources) Start: 03-14-2023 progesterone 100 mg vaginal suppository Dose : 100 mg = 1 supp, Vaginal, qHS, # 30 supp, 1 Refill(s), Pharmacy: [facility], 160, cm, 03/08/23 13:32:00 EDT, Height Start Date: 03/14/23 Status: Ordered promethazine hydrochloride 25 mg oral tablet (3 sources) Phenothiazine Start: 04-06-2023 End: 04-11-2023 promethazine 25 mg oral tablet Dose : 25 mg = 1 tab(s), Oral, q6h, PRN for nausea/vomiting, # 15 tab(s), 0 Refill(s), Threatened miscarriage Nausea Start Date: 04/06/23 Stop Date: 04/11/23 Status: Ordered traZODone hydrochloride 50 mg oral tablet (12 sources) Serotonin Reuptake Inhibitor Start: 07-02-2022 take 2 tablets by mouth once daily at bedtime traZODone (DESYREL) 50 mg tablet Take 2 tablets by mouth daily at bedtime. 60 tablet 5 07/02/2022 Active Start: 06-15-2022 traZODone 50 m g oral tablet Dose : 100 mg = 2 tab(s), Take 1 tablet by mouth at bedtime Start Date: 06/15/22 Status: Ordered Start: 03-23-2022 End: 07-01-2022 take 2 tablets by mouth once daily at bedtime traZODone (DESYREL) 50 mg tablet Take 100 mg by mouth daily at bedtime. 0 03/23/2022 07/01/2022 Discontinued Comment on above: Take 100 mg by mouth daily at bedtime. Take 2 tablets by mo uth daily at bedtime. Problems Active Problems Problem Classification Problem Date Documented Da te Episodic/Chronic Anxiety disorders (19 sources) Anxiety; Translations: [Anxiety disorder, unspecified] Onset: 03-01-2018 11-07-2022 Chronic Diabetes mellitus without complication (18 sources) Type 2 diabetes mellitus; Translations: [Type 2 diabetes mellitus without complications] Onset: 11-07-2022 11-07-2022 Chronic Diabetes or abnormal glucose tolerance complicating ; childbirth; or the puerperium (2 sources) Gestational diabetes mellitus complicating ; Translations: [Gestational diabetes mellitus in , unspecified control] Onset: 11-12-2023 Episodic Early or threatened labor (19 sources) labor without delivery; Translations: [ labor without delivery, unspecified trimester] Onset: 09-14-2023 Episodic Genitourinary symptoms and ill-defined conditions (3 sources) Genitourinary symptoms; Translations: [Unspecified symptoms and signs involving the genitourinary system] Episodic Headache; including migraine (20 sources) Migraine 08-16-2017 Chronic Headache; including migraine (20 sources) Headache 07-10-2016 Episodic Hemorrhage during ; abruptio placenta; placenta previa (16 sources) Threatened miscarriage; Translations: [Threatened ] Onset: 07-15-2022 Episodic Malposition; malpresentation (6 sources) Breech presentation; Translations: [Maternal care for breech presentation, not applicable or unspecified] Onset: 11-12-2023 10-19-2023 Episodic Menstrual disorders (20 sources) Menometrorrhagia; Translations: [Excessive and frequent menstruation with irregular cycle] Onset: 06-15-2022 11-07-2022 Chronic Mood disorders (20 sources) Depressive disorder; Translations: [Depression] Onset: 07-12-2017 09-24-2017 Chronic Nausea and vomiting (1 source) Nausea; Translations: [Nausea] 03-19-2025 Episodic Nonspecific chest pain (10 sources) Chest pain; Translations: [Chest pain, unspecified] 01-11-2024 Episodic Other complications of ; puerperium affecting management of mother (10 sources) growth restriction 10-07-2023 Episodic Other complications of (1 source) Maternal obesity complicating , childbirth and the puerperium, antepartum; Translations: [Obesity complicating , unspecified trimester] Onset: 11-12-2023 Chronic Other complications of (1 source) Anemia in mother complicating , childbirth AND/OR puerperium; Translations: [Anemia complicating , unspecified trimester] Onset: 11-12-2023 Chronic Other complications of (1 source) Short cervical length in ; Translations: [Cervical shortening, third trimester] Onset: 11-12-2023 Episodic Other complications of (1 source) Finding related to ; Translations: [Other specified related conditions, unspecified trimester] Onset: 11-12-2023 Episodic Other complications of (4 sources) Pain in female pelvis; Translations: [Other specified related conditions, unspecified trimester] 05-29-2023 Episodic Other ear and sense organ disorders (1 source) Acute otitis externa of right ear; Translations: [Unspecified acute noninfective otitis externa, right ear] 07-28-2025 Episodic Other ear and sense organ disorders (1 source) Unspecified acute noninfective otitis externa, right ear; Translations: [Acute otitis externa of right ear, unspecified type] Onset: 07-28-2025 Episodic Other endocrine disorders (17 sources) Polycystic ovary syndrome; Translations: [Polycystic ovarian syndrome] Onset: 06-15-2022 11-07-2022 Chronic Other female genital disorders (1 source) Abnormal uterine bleeding; Translations: [Abnormal uterine and vaginal bleeding, unspecified] Onset: 03-02-2022 Chronic Other liver diseases (19 sources) Steatosis of liver; Translations: [Fatty (change of) liver, not elsewhere classified] Onset: 01-26-2021 11-07-2022 Chronic Other lower respiratory disease (1 source) H/O: asthma; Translations: [Personal history of other diseases of the respiratory system] Episodic Other lower respiratory disease (3 sources) Pleuritic pain; Translations: [Pleurodynia] 03-30-2024 Episodic Other lower respiratory disease (2 sources) Rib pain; Translations: [Pleurodynia] 07-11-2024 Episodic Other lower respiratory disease (1 source) Cough; Translations: [Acute cough] 04-16-2025 Episodic Other nervous system disorders (6 sources) Observation of sensation; Translations: [Other disturbances of skin sensation] 04-28-2021 Episodic Other nervous system disorders (6 sources) Paresthesia; Translations: [Paresthesia of skin] 04-28-2021 Episodic Other nervous system disorders (1 source) Postoperative pain ; Translations: [Other acute postprocedural pain] Onset: 11-12-2023 Episodic Other nutritional; endocrine; and metabolic disorders (20 sources) Body mass index 40+ - severely obese; Translations: [Body mass index (BMI) 40.0-44.9, adult] Onset: 06-15-2022 11-07-2022 Chronic Other nutritional; endocrine; and metabolic disorders (20 sources) Insulin resistance 09-13-2022 Chronic Other nutritional; endocrine; and metabolic disorders (11 sources) Body mass index 30+ - obesity 10-06-2023 Chronic Other and delivery including normal (20 sources) ; Translations: [Third trimester ] Onset: 12-20-2021 01-28-2022 Episodic Comment on above: System added from do cumentation. Status documented as Yes on Admission Other screening for suspected conditions (not mental disorders or infectious disease) (3 sources) Encounter for screening for diabetes mellitus; Translations: [Patient encounter status] Episodic Other skin disorders (2 sources) Disorder of the skin and subcutaneous tissue, unspecified; Translations: [Disorder of the skin and subcutaneous tissue, unspecified] Onset: 06-19-2024 Episodic Otitis media and related conditions (2 sources) Acute right otitis media; Translations: [Otitis media, unspecified, right ear] Onset: 06-16-2025 06-16-2025 Episodic Polyhydramnios and other problems of amniotic cavity (20 sources) Oligohydramnios; Translations: [Oligohydramnios, unspecified trimester, not applicable or unspecified] Onset: 11-12-2023 10-06-2023 Episodic Residual codes; unclassified (20 sources) H/O: miscarriage 09-13-2022 Episodic Residual codes; unclassified (6 sources) Pain; Translations: [Pain, unspecified] 12-29-2021 Episodic Residual codes; unclassified (1 source) Gestation period, 38 weeks; Translations: [38 weeks gestation of ] Onset: 11-12-2023 Episodic Skin and subcutaneous tissue infections (2 sources) Cellulitis, unspecified; Translations: [Cellulitis, unspecified] Onset: 06-19-2024 Episodic Spondylosis; intervertebral disc disorders; other back problems (6 sources) Other intervertebral disc displacement, lumbar region; Translations: [Herniation of intervertebral disc of lumbar spine] 12-29-2021 Chronic Superficial injury; contusion (4 sources) Contusion of chest; Translations: [Contusion of unspecified front wall of thorax, initial encounter] Onset: 10-04-2024 Episodic Unclassified (1 source) Unknown / UNK(Unknown) Onset: 08-31-2018 Unclassified (17 sources) Transformed migraine; Translations: [Chronic migraine] Onset: 07-12-2017 11-07-2022 Unclassified (1 source) Acute cough; Translations: [Acute cough] Onset: 04-16-2025 Urinary tract infections (6 sources) Urinary tract infectious disease; Translations: [Urinary tract infection, site not specified] 03-26-2023 Episodic Viral infection (1 source) Viral disease; Translations: [Viral infection, unspecified] 09-08-2023 Episodic Past or Other Problems Problem Classification Problem Date Documented Date Episodic/Chronic Abdominal pain (7 sources) Generalized abdominal pain; Translations: [Generalized abdominal pain] Onset: 03-17-2025 Episodic Biliary tract disease (3 sources) Gallstone; Translations: [Calculus of gallbladder without cholecystitis without obstruction] Onset: 03-17-2025 03-17-2025 Episodic Other complications of (2 sources) Other specified related conditions, unspecified trimester; Translations: [Other specified related conditions, unspecified trimester] Onset: 09-18-2023 Episodic Other female genital disorders (18 sources) Recurrent miscarriage; 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] Onset: 08-30-2022 11-07-2022 Episodic Other lower respiratory disease (1 source) Pleurodynia; Translations: [Pleurodynia] Onset: 07-11-2024 Episodic Other upper respiratory infections (10 sources) Sore throat symptom; Translations: [Acute pharyngitis, unspecified] Onset: 04-16-2025 Episodic Pneumonia (except that caused by tuberculosis or sexually transmitted disease) (2 sources) Community acquired pneumonia; Translations: [Pneumonia, unspecified organism] Onset: 04-16-2025 04-16-2025 Episodic Unclassified (1 source) E01.0 Onset: 08-31-2018 Results Test Name Value Interpretation Reference Range Facility [facility] 07-31-2025 [facility] Telephone (YIFANA) GABRIELLE CARROLL V ([id number]) 4 F Date Time Provider Department 07/31/25 BARRY REEVES During your visit today, we recorded the following information about you: Rubi Middleton LPN 07/31/2025 1:06 PM Signed Patient is overdue for Wellness exam Please contact to schedule Rubi Middleton LPN July 31, 2025 1:06 PM Wyatt Romero 07/31/2025 1:27 PM Signed Called, left voicemail for patient to contact office regarding scheduling Overdue Annual Wellness. Wyatt Romero Allergies As of Date: 07/31/2025 Noted Allergy Reaction SUMATRIPTAN 08/31/2018 1 - Mental Status Change 2 - Rash Date Reviewed: 07/28/2025 Reviewed by: Link Matt APRN.HAND CANDY MOLDER - Fully Assessed Reason for Visit: Appointment [186] Prescriptions as of 07/31/2025 - ofloxacin (FLOXIN) 0.3 % otic solution Use 10 drops in the right ear once daily for 7 days. - albuterol HFA (PROAIR HFA) 90 mcg/actuation inhaler Inhale 2 puffs as instructed every 4 hours as needed. - vit no.124/iron/folic ( VITAMIN ORAL) Take by mouth. 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/2022 Steatosis of liver [K76.0] 01/26/2021 Diabetes beginning in adulthood (type 2/adult o*11/07/2022 Encounter Status:Closed by WYATT ROMERO on 07/31/25 [facility] CNOVabdirahman 07-28-2025 CNOV Office Visit ([facility]) GABRIELLE CARROLL V ([id number]) 4 F Date Time Provider Department 07/28/25 3:45 PM LINK MATT During your visit today, we recorded the following information about you: Temperature Pulse Respiration Blood pressure 98.2 degrees 96/minute 16/minute 124/72 Weight 119.8 kg Link Matt APRN.HAND CANDY MOLDER 07/28/2025 4:08 PM Signed [facility] Subjective Gabrielle Carroll is a 25 year old female. Patient presents with: Ear Pain: right x 06/16 HPI Nontoxic-appearing 25-year-old female presents urgent care chief complaint ear pain. Duration of symptoms ongoing since the end of May. Associated symptoms right ear pain. States improved no worsening in. Was seen by me. Placed on amoxicillin. States ear pain has been episodic is worse in the last few days. No trauma. No loss hearing. No otorrhea. No fevers. Past medical history prescription medications allergies reviewed. Review of Systems Constitutional: Negative for chills, diaphoresis, fatigue and fever. HENT: Positive for ear pain. Negative for congestion, dental problem, drooling, ear discharge, rhinorrhea, sinus pressure, sinus pain, sneezing, sore throat and trouble swallowing. Eyes: Negative for pain, discharge, redness, itching and visual disturbance. Respiratory: Negative for cough, chest tightness, shortness of breath and wheezing. Cardiovascular: Negative for chest pain. Gastrointestinal: Negative for abdominal distention, abdominal pain, blood in stool, constipation, diarrhea, nausea and vomiting. Genitourinary: Negative for difficulty urinating and dysuria. Musculoskeletal: Negative for arthralgias, joint swelling, neck pain and neck stiffness. Skin: Negative for rash. Neurological: Negative for dizziness, weakness, numbness and headaches. Objective BP 124/72 Pulse 96 Temp 36.8 ?C (98.2 ?F) Resp 16 Wt 119.8 kg (264 lb 1.8 oz) LMP (LMP Unknown) SpO2 99% BMI 46.79 kg/m? Physical Exam Constitutional: Appearance: Normal appearance. HENT: Head: Normocephalic. Jaw: No trismus, tenderness, swelling or pain on movement. Right Ear: Tympanic membrane and external ear normal. No mastoid tenderness. Left Ear: Tympanic membrane, ear canal and external ear normal. No mastoid tenderness. Ears: Comments: Mild auditory canal erythema edema noted. Pinna tenderness with manipulation. No evidence of perichondritis Nose: No congestion. Mouth/Throat: Mouth: Mucous membranes are moist. Pharynx: Oropharynx is clear. Uvula midline. No oropharyngeal exudate or posterior oropharyngeal erythema. Eyes: Conjunctiva/sclera: Conjunctivae normal. Cardiovascular: Rate and Rhythm: Normal rate. Pulmonary: Effort: Pulmonary effort is normal. Breath sounds: Normal breath sounds. No wheezing, rhonchi or rales. Abdominal: Palpations: Abdomen is soft. Tenderness: There is no abdominal tenderness. There is no guarding or rebound. Musculoskeletal: General: Normal range of motion. Cervical back: Normal range of motion and neck supple. No edema, erythema or rigidity. No pain with movement. Normal range of motion. Lymphadenopathy: Cervical: No cervical adenopathy. Skin: General: Skin is warm. Findings: No rash. Neurological: General: No focal deficit present. Mental Status: She is alert and oriented to person, place, and time. Mental status is at baseline. {ASSESSMENT/PLAN: 1. Acute otitis externa of right ear, unspecified type - ICD9: 380.10, ICD10: H60.501 Diagnosed otitis externa. Placed on ofloxacin otic drops. Encouraged to follow-up with ENT Patient was educated on supportive therapies. Patient will follow up with primary care provider as needed. Patient was instructed to immediately proceed to emergency room for any new, worsening, or symptoms lasting longer than anticipated. The patient's clinical presentation is otherwise unremarkable at this time. Based on exam and clinical finding, the patient is stable for discharge. Plan of care was discussed with patient. Patient verbalizes understanding and agrees to plan of care. This note was generated using [employer] software. It may contain errors in wording, punctuation, or spelling. Link Matt APRN.HAND CANDY MOLDER History and Record Review Clinical information obtained from an independent historian. History obtained from or confirmed by: parent. External record(s) reviewed: prior outpatient record. Disposition The patient was discharged. OTC Medications were advised: Procedures Allergies As of Date: 07/28/2025 Noted Allergy Reaction SUMATRIPTAN 08/31/2018 1 - Mental Status Change 2 - Rash Date Reviewed: 07/28/2025 Reviewed by: Link Matt APRN.HAND CANDY MOLDER - Fully Assessed Reason for Visit: Ear Pain [817] Cmt: right x 06/16 Primary Visit Diagnosis:Acute otitis externa of right ear, unspecified type [H60 (more content not included)... Normal [facility] Visit Reporton 0 06-26-2025 Urgent Care Visit Report [facility] [address], [address] [place] [address] OFFICE VISIT Date of Service: 06/26/25 MR#: [id number] Acct: [id number] Name: GABRIELLE CARROLL Rep #: [id number] : 2000 Provider: CEFERINO Lima Age/Sex: 24/F Location: [facility] Status: Signed Intake Vital Signs 03/17/25 14:08 Height 5 ft 3 in Weight: 266 lb BMI 47.1 BP 116/79 Blood Pressure Location Rt brachial Position Sitting Respiration 17 Pulse 5 L Pulse Source Monitor Pulse Oximetry (%) 98 Oxygen Delivery Method room air Intake Visit 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 [facility] Enlarged liver Surgical History Hx of section Hx of dilation and curettage [place] teeth removed Hx of tonsillectomy Family History (Updated 03/17/25 @ 14:08 by Mai Arenas) Grandmother Cancer Hypertension Brother Asthma Social History household members: friend(s) Smoking Status: Never smoker alcohol intake: never substance use type: marijuana HPI HPI Chief Complaint: College Physical Details: GABRIELLE CARROLL, is a 24 F who presents to the office today for college physical. Please see corresponding scanned documents with today's date. 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 Diagnoses School physical exam Z02.0 CPT Codes PE Coding - Sports/School Physical: Yes (24641) Assessment and Plan Assessment and Plan (1) School physical exam: Status: Acute 06/26/25 1320 Date Rajesh Coles Signature: Date (if applicable) CC: Normal [facility] CNOVon 06-16-2025 [facility] Office Visit ([facility]) GABRIELLE CARROLL V ([id number]) 4 F Date Time Provider Department 06/16/25 5:00 PM LINK MATT During your visit today, we recorded the following information about you: Temperature Pulse Respiration Blood pressure 98.3 degrees 112/minute 16/minute 122/74 Weight 119.8 kg Link Matt, NAZ.HAND CANDY MOLDER 06/16/2025 5:25 PM Signed [facility] Subjective Gabrielle [place] is a 24 year old female. Patient presents with: Ear Pain: right x 6 days HPI Nontoxic-appearing female presents urgent care chief complaint right ear pain. Duration of symptoms 6 days. Associated symptoms sharp right ear pain. States ear pain has worsened in the last few days. No ear trauma otorrhea loss hearing. No fevers. History of ear infections similar. OTC medications none today. Denies chance of . Past medical history prescription medications allergies reviewed. Review of Systems Constitutional: Negative for chills, diaphoresis, fatigue and fever. HENT: Positive for ear pain. Negative for congestion, drooling, ear discharge, rhinorrhea, sinus pressure, sinus pain, sneezing, sore throat, tinnitus and trouble swallowing. Eyes: Negative for pain, discharge, redness, itching and visual disturbance. Respiratory: Negative for cough, chest tightness, shortness of breath and wheezing. Cardiovascular: Negative for chest pain. Gastrointestinal: Negative for abdominal distention, abdominal pain, blood in stool, constipation, diarrhea, nausea and vomiting. Genitourinary: Negative for difficulty urinating and dysuria. Musculoskeletal: Negative for arthralgias, joint swelling, neck pain and neck stiffness. Skin: Negative for rash. Neurological: Negative for dizziness, weakness, numbness and headaches. Objective BP 122/74 Pulse 112 Temp 36.8 ?C (98.3 ?F) Resp 16 Wt 119.8 kg (264 lb 1.8 oz) LMP (LMP Unknown) SpO2 97% BMI 46.79 kg/m? Hr 96 Physical Exam Constitutional: Appearance: Normal appearance. HENT: Head: Normocephalic. Jaw: No trismus, tenderness, swelling or pain on movement. Right Ear: Ear canal and external ear normal. Tympanic membrane is erythematous and bulging. Left Ear: Tympanic membrane, ear canal and external ear normal. Nose: No congestion. Mouth/Throat: Mouth: Mucous membranes are moist. Pharynx: Oropharynx is clear. Uvula midline. No oropharyngeal exudate or posterior oropharyngeal erythema. Eyes: Conjunctiva/sclera: Conjunctivae normal. Cardiovascular: Rate and Rhythm: Normal rate. Pulmonary: Effort: Pulmonary effort is normal. Breath sounds: Normal breath sounds. No wheezing, rhonchi or rales. Abdominal: Palpations: Abdomen is soft. Tenderness: There is no abdominal tenderness. There is no guarding or rebound. Musculoskeletal: General: Normal range of motion. Cervical back: Normal range of motion and neck supple. No edema, erythema or rigidity. No pain with movement. Normal range of motion. Lymphadenopathy: Cervical: No cervical adenopathy. Skin: General: Skin is warm. Findings: No rash. Neurological: General: No focal deficit present. Mental Status: She is alert and oriented to person, place, and time. Mental status is at baseline. {ASSESSMENT/PLAN: 1. Acute otitis media, right - ICD9: 382.9, ICD10: H66.91 Diagnosis otitis media right ear. Placed on amoxicillin. Patient was educated on supportive therapies. Patient will follow up with primary care provider as needed. Patient was instructed to immediately proceed to emergency room for any new, worsening, or symptoms lasting longer than anticipated. The patient's clinical presentation is otherwise unremarkable at this time. Based on exam and clinical finding, the patient is stable for discharge. Plan of care was discussed with patient. Patient verbalizes understanding and agrees to plan of care. This note was generated using [employer] software. It may contain errors in wording, punctuation, or spelling. Link Matt APRN.MARY History and Record Review Clinical information obtained from an independent historian. History obtained from or confirmed by: parent. External record(s) reviewed: prior outpatient record. Disposition The patient was discharged. OTC Medications were advised: Procedures Allergies As of Date: 06/16/2025 Noted Allergy Reaction SUMATRIPTAN 08/31/2018 1 - Mental Status Change 2 - Rash Date Reviewed: 06/16/2025 Reviewed by: Link Matt APRN.MARY - Fully Assessed Reason for Visit: Ear Pain [817] Cmt: right x 6 days Primary Visit Diagnosis:Acute otitis media, right [H66.91] Order(s):amoxicillin (AMOXIL) 875 mg tabletTake 1 tablet by mouth two times a day for 5 days.Disp: 10 tabletRfl: 0 Prescriptions as of 06/16/2025 - amoxicillin (AMOXIL) 875 mg tablet Take 1 tablet by mouth two times a day for 5 (more content not included)... Normal [facility] CNOVon 04-16-2025 CNOV Office Visit (WSTR ) GABRIELLE CARROLL V ([id number]) 4 F Date Time Provider Department 04/16/25 12:00 PM OSITO GAXIOLA [facility] During your visit today, we recorded the following information about you: Temperature Pulse Respiration Blood pressure 100.1 degrees 117/minute 20/minute 110/86 Weight 120 kg Osito Gaxiola APRN.HAND CANDY MOLDER 04/16/2025 12:51 PM Signed [facility] Subjective HPI HPI Gabrielle [place] is a 24 year old female who presents today for CC of cough, st, fever. This started 4 days ago. Has tried otc medication for relief. Symptoms are worsened by nothing. Risk factors sick exposures at work. Nonsmoker. Hx of asthma. Denies possibility of being . .Patient presents with: Cough: Chest congestion, ST x4 days PAST MEDICAL HISTORY Diagnosis Date Headache NEGATIVE MEDICAL HISTORY PAST SURGICAL HISTORY Procedure Laterality Date PAST SURGICAL HISTORY OF 2019 [place] teeth extracted TONSILLECTOMY AND ADENOIDECTOMY HX ALLERGIES Sumatriptan MEDICATIONS doxycycline monohydrate 100 mg tablet Take 1 tablet by mouth two times a day for 7 days. albuterol HFA (PROAIR HFA) 90 mcg/actuation inhaler Inhale 2 puffs as instructed every 4 hours as needed. vit no.124/iron/folic ( VITAMIN ORAL) Take by mouth. (Patient not taking: Reported on 04/16/2025) FAMILY HISTORY Problem Relation Age of Onset Cervical Cancer Sister Social History Tobacco Use Smoking status: Never Smokeless tobacco: Never Vaping Use Vaping status: Never Used Substance Use Topics Alcohol use: Never Drug use: Never Review of Systems Constitutional: Positive for fever. Negative for chills and fatigue. HENT: Positive for rhinorrhea and sore throat. Negative for ear discharge, ear pain, sinus pressure and sinus pain. Eyes: Negative for discharge and redness. Respiratory: Positive for cough. Negative for shortness of breath and wheezing. Cardiovascular: Negative for chest pain. Skin: Negative for rash. Objective BP 110/86 Pulse 117 Temp 37.8 ?C (100.1 ?F) Resp 20 Wt 120 kg (264 lb 8.8 oz) LMP (LMP Unknown) SpO2 100% No BMI 46.86 kg/m? Physical Exam Constitutional: General: She is not in acute distress. Appearance: She is ill-appearing (mild). She is not toxic-appearing or diaphoretic. HENT: Head: Normocephalic and atraumatic. Right Ear: Hearing and external ear normal. Left Ear: Hearing and external ear normal. Nose: Nose normal. Mouth/Throat: Pharynx: Uvula midline. Eyes: General: Lids are normal. No scleral icterus. Right eye: No discharge. Left eye: No discharge. Conjunctiva/sclera: Conjunctivae normal. Pupils: Pupils are equal, round, and reactive to light. Neck: Trachea: Trachea normal. Cardiovascular: Rate and Rhythm: Normal rate and regular rhythm. Heart sounds: Normal heart sounds. Pulmonary: Effort: Pulmonary effort is normal. Breath sounds: Normal breath sounds. Musculoskeletal: Cervical back: Normal range of motion and neck supple. Lymphadenopathy: Cervical: No cervical adenopathy. Skin: Findings: No rash. Neurological: Mental Status: She is alert and oriented to person, place, and time. {ASSESSMENT/PLAN: 1. Community acquired pneumonia, unspecified laterality - ICD9: 486, ICD10: J18.9 (primary diagnosis) - Discussed supportive care, - Limit exposure to smoke and other inhaled irritants - Discussed possible red flags and when to seek medical attention - Follow up in 3-5 days or sooner if no better or worse -If you experience chest pain/shortness of breath go to ER - DOXYCYCLINE MONOHYDRATE 100 MG TABLET - ALBUTEROL SULFATE HFA 90 MCG/ACTUATION AEROSOL INHALER 2. Acute cough - ICD9: 786.2, ICD10: R05.1 - XR CHEST 2V FRONTAL/LAT 3. Sore throat - ICD9: 462, ICD10: J02.9 Negative - ALERE STREP A TEST (AG) Osito Gaxiola APRN.HAND CANDY MOLDER History and Record Review External record(s) reviewed: prior outpatient record. Disposition The patient was discharged. Procedures Referring Provider: SELF [200] Allergies As of Date: 04/16/2025 Noted Allergy Reaction SUMATRIPTAN 08/31/2018 1 - Mental Status Change 2 - Rash Date Reviewed: 04/16/2025 Reviewed by: Nora Brown MA - Fully Assessed Reason for Visit: Cough [28] Cmt: Chest congestion, ST x4 days Primary Visit Diagnosis:Community acquired pneumonia, unspecified laterality [J18.9] Other Visit Diagnoses:Acute cough [R05.1] Sore throat [J02.9] Order(s):XR CHEST 2V FRONTAL/LAT [3896522] Order #: [id number]. #:[id number] ALERE STREP A TEST (AG) [8197750] Order #: [id number] STREP A MOLECULAR (POC) [6099134] Order #: [id number]. #:[id number] doxycycline monohydrate 100 mg tabletTake 1 tablet by mouth two times a day for 7 days.Disp: 14 tabletRfl: 0 albuterol HFA (PROAIR HFA) 90 mcg/actuati (more content not included)... Normal [facility] STREP A MOLECULAR (POC)on Procedural Control Valid [facility] Strep A (POCT) Negative Negative [facility] XR CHEST 2V FRONTAL/LATon XR CHEST 2V FRONTAL/LAT * * *Final Repor t* * * DATE OF EXAM: Apr 16 2025 12:18PM WOX 5291 - XR CHEST 2V FRONTAL/LAT / PROCEDURE REASON: Acute cough * * * * Physician Interpretation * * * * EXAMINATION: CHEST RADIOGRAPH (2 VIEW FRONTAL and LATERAL) CLINICAL HISTORY: Acute cough MQ: XC2_6 EXAM DATE/TIME: 04/16/2025 12:18 PM COMPARISON: No relevant prior studies available. RESULT: Lines, tubes, and devices: None. Lungs and pleura: Mild right infrahilar opacities. No pleural effusion. No pneumothorax. Cardiomediastinal silhouette: Normal cardiomediastinal silhouette. Bones and soft tissues: Unremarkable. IMPRESSION: Mild right infrahilar opacities, atelectasis versus bronchopneumonia in the appropriate clinical setting. Oil Exploration Engineer: FAUSTO Transcribe Date/Time: Apr 16 2025 12:20P Dictated by : DAJA SORIA MD This examination was interpreted and the report reviewed and electronically signed by: DAJA SORIA MD on Apr 16 2025 12:21PM EST [id number] Normal [facility] XR Chest PA and Lateralon IMPRESSION: Mild right infrahilar opacities, atelectasis versus bronchopneumonia in the appropriate clinical setting. Oil Exploration Engineer: FAUSTO Transcribe Date/Time: Apr 16 2025 12:20P Dictated by : DAJA SORIA MD This examination was interpreted and the report reviewed and electronically signed by: DAJA SORIA MD on Apr 16 2025 12:21PM EST DIVISION OF RADIOLOGY * * *Final Report* * * DATE OF EXAM: Apr 16 2025 12:18PM WOX 5291 - XR CHEST 2V FRONTAL/LAT / PROCEDURE REASON: Acute cough * * * * Physician Interpretation * * * * EXAMINATION: CHEST RADIOGRAPH (2 VIEW FRONTAL & LATERAL) CLINICAL HISTORY: Acute cough MQ: XC2_6 EXAM DATE/TIME: 04/16/2025 12:18 PM COMPARISON: No relevant prior studies available. RESULT: Lines, tubes, and devices: None. Lungs and pleura: Mild right infrahilar opacities. No pleural effusion. No pneumothorax. Cardiomediastinal silhouette: Normal cardiomediastinal silhouette. Bones and soft tissues: Unremarkable. DIVISION OF RADIOLOGY Provider, [facility] - 04/16/2025 * * *Final Report* * * DATE OF EXAM: Apr 16 2025 12:18PM WOX 5291 - XR CHEST 2V FRONTAL/LAT / PROCEDURE REASON: Acute cough * * * * Physician Interpretation * * * * EXAMINATION: CHEST RADIOGRAPH (2 VIEW FRONTAL & LATERAL) CLINICAL HISTORY: Acute cough MQ: XC2_6 EXAM DATE/TIME: 04/16/2025 12:18 PM COMPARISON: No relevant prior studies available. RESULT: Lines, tubes, and devices: None. Lungs and pleura: Mild right infrahilar opacities. No pleural effusion. No pneumothorax. Cardiomediastinal silhouette: Normal cardiomediastinal silhouette. Bones and soft tissues: Unremarkable. IMPRESSION IMPRESSION: Mild right infrahilar opacities, atelectasis versus bronchopneumonia in the appropriate clinical setting. Oil Exploration Engineer: PSCB Transcribe Date/Time: Apr 16 2025 12:20P Dictated by : DAJA SORIA MD This examination was interpreted and the report reviewed and electronically signed by: DAJA SORIA MD on Apr 16 2025 12:21PM EST [facility] Radiology Study observation (narrative) Sylvie Bloom XR Chest PA and LateralOrder ed By: [facility] Provider on 04-16-2025 [facility] Surgery Visit Reporton 03-17 Surgery Visit Report [facility] [address] [place] [address]. [address] [place] [address] OFFICE VISIT Date of Service: 03/17/25 MR#: [id number] Acct: [id number] Name: GABRIELLE CARROLL Rep #: [id number] : 2000 Provider: Dr. Luis Alberto diaz MD Age/Sex: 24/F Location: [facility] Status: Signed Intake Vital Signs 03/11/25 03:37 03/17/25 14:08 Height 5 ft 3 in 5 ft 3 in Weight: 266 lb BMI 47.1 BP 116/79 Blood Pressure Location Rt brachial Position Sitting Respiration 17 Pulse 5 L Pulse Source Monitor Pulse Oximetry (%) 98 Oxygen Delivery Method room air Intake Visit Reasons: GALLSTONES-SELF PAY Chief Complaint: gallstones Is patient in pain?: Yes (tenderness upper right quad.) Allergies sumatriptan (From Imitrex) Allergy (Verified 03/17/25 14:10) Rash Medications ???Medication ???Instructions ???Recorded ???Confirmed ???Type methocarbamol 500 mg tablet 1,000 mg (2 x 500 mg) PO 4X/DAY 03/17/25 Rx PRN Muscle pain/spasm #56 tabs ondansetron 4 mg disintegrating 4 mg PO TID PRN nausea and 5 03/17/25 Rx tablet vomiting #21 tabs PFSH Medical History Enlarged liver Surgical History Hx of section Hx of dilation and curettage [place] teeth removed Hx of tonsillectomy Family History (Updated 03/17/25 @ 14:08 by Mai Arenas) Grandmother Cancer Hypertension Brother Asthma Social History household members: friend(s) Smoking Status: Never smoker alcohol intake: never substance use type: marijuana HPI HPI HPI: since then she has been feeling better but she is still nauseous anytime she eats. 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 She reports that She was found to have possible gallstone and sludge in the gallbladder. Her liver enzymes were also mildly elevated. ROS General General: No weight change, appetite, fatigue, colon cancer, breast cancer or weakness HEENT HEENT: No difficulty swallowing, eye injury, eye surgery, swollen glands or hoarseness Endo Endocrine: No thyroid disease, diabetes mellitus, thyroid cancer, Hair loss, heat intolerance or cold intolerance Skin Skin: No rash or changing moles Musc Musculoskeletal: Yes back problems; No arthritis, rheumatoid arthritis, gout or joint pain Cardio Cardiovascular: No murmur, pacemaker, heart disease, atrial fibrillation, high blood pressure, heart attack, heart stent, palpitations, shortness of breath with exertion or chest pain Psych Psychiatric: Yes anxiety; No depression or hearing voices Resp Respiratory: No shortness of breath, No sleep apnea, No cough, No COPD, Yes asthma, No emphysema and No wheezing Gastro Gastrointestinal: Yes abdominal pain, Yes nausea or vomiting, Yes diarrhea, No constipation, No blood in stool, No acid reflux, No hemorrhoids, No ulcers, Yes gallbladder problem and No black,tarry stools Vince Hematologic: No blood thinners, No blood disorders, No bleeding, No anemia and No blood clots Neuro Neurologic: No system reviewed and no additional complaints, except as documented, No as per HPI, No abnormal gait, No abnormal hearing, No abnormal movements, No abnormal speech, No behavioral changes, No burning sensations, No confusion, No convulsions, No disequilibrium, No dizziness, No localized weakness, No frequent falls, No headache(s), No lack of coordination, No loss of vision, No memory loss, No numbness, No other visual disturbances, No radicular pain, No restless legs, No sensory deficit, No syncope, No tingling, No tremor(s), No weakness and No other Exam Const General: cooperative Orientation: alert and oriented x3 HENTN Head: normal to inspection Neck Neck: normal visual inspection and full ROM Chest Chest palpation inspection: normal inspection of the chest Resp Effort Inspection: normal respiratory effort Auscultation: clear to auscultation bilaterally Cardio Rate: regular rate Rhythm: regular rhythm GI Inspection: non-distended Palpation: soft and nontender Skin General: no rashes or lesions noted Neuro General: patient alert and patient oriented x3 Extrem General: full ROM Psych Appearance: grossly normal Mental Status: mental status grossly normal Assessment and Plan Assessment and Plan (1) Gallstones: Status: Acute (2) Right upper quadrant abdominal pain: Status: Acute Plan The patient has sludge and possible gallstones and her LFTs were elevated. I believe that is likely the cause of her right upper quadrant pain. I di (more content not included)... Normal [facility] Abdomen Limitedon 03-12-2025 Abdomen Limited [facility] Imaging Services [address] [place] [address] Abdomen Limited MR#: [id number] Acct: [id number] Name: GABRIELLE CARROLL Rep #: [id number] : 2000 F 24 From: Kylee Maldonado nd, MD PCP: Dr. Barry Reeves MD Status: REG CLI Study: Abdomen Limited Date of Exam: 03/12/25 Exam# [id number] Ordering Dr: Reese King DO PROCEDURE: ABDOMEN LIMITED 03/12/2025 REASON FOR EXAM: RIGHT UPPER QUADRANT ABDOMINAL PAIN COMPARISON: CT abdomen pelvis 02/2025. FINDINGS: Liver: Diffusely echogenic suggesting fatty infiltration. Normal-size measuring 18.8 cm. The bile ducts are within normal limits. The main portal vein is patent with normal directional flow. Gallbladder: The gallbladder is distended with questionable small gallstone and mild dependent sludge. No gallbladder wall thickening or pericholecystic fluid. Negative Aguayo sign reported by photo technologist. Common bile duct: Normal measuring 0.7 cm. Pancreas: Visualized portions are sonographically unremarkable. Other: Visualized portions of the right kidney are unremarkable. No right upper quadrant ascites. US/Abdomen Limited IMPRESSION: 1. Questionable cholelithiasis. No evidence of acute cholecystitis. 2. Mild hepatic steatosis. Reading Location: [facility] CC: Dr. Barry Reeves MD; Reese King DO Oil Exploration Engineer: Signed Normal [facility] Absolute lymphocyte countOrd ered By: Reese King on 03-11-2025 Lymphocytes Auto (Unsp spec) [#/Vol] 3.74 10*3/uL 0.83-4.51 [facility] Absolute neutrophil countOrd ered By: Reese King on 03-11-2025 Neutrophils (Bld) [#/Vol] 4.9 10*3/uL 2.0-7.7 [facility] Anion gap in Serum or Plasma Ordered By: Reese King on 03-11-2025 Anion gap [Moles/Vol] 11 mmol/L 5-15 [facility] Automated lymphocyte count a s percentage of total leukocytesOrdered By: Reese King on 03-11-2025 Lymphocytes/100 WBC Auto (Unsp spec) 40.6 % [facility] BUN/creatinine ratioOrdered By: Reese King on 03-11-2025 Urea nitrogen/Creatinine [Mass ratio] 11.9 mg/mg - [facility] Basic Metabolic Profile (BMP )on 03-11-2025 BUN/CRE 11.9 RATIO Normal - [facility] Comment on above: Performed By: #### L 100.0100, L500.2500, L501.2450, L500.3400 #### [facility] [address] [place], [address] Calcium [Mass/Vol] 9.9 mg/dL Normal 7.6-11.0 [facility] Comment on above: Performed By: #### L 100.0100, L500.2500, L501.2450, L500.3400 #### [facility] [address] [place], [address] Chloride [Moles/Vol] 104 mmol/L Normal 98-108 [facility] Comment on above: Performed By: #### L 100.0100, L500.2500, L501.2450, L500.3400 #### [facility] [address] [place], [address] CO2 [Moles/Vol] 24.0 mmol/L Normal 21.0-32.0 [facility] Comment on above: Performed By: #### L 100.0100, L500.2500, L501.2450, L500.3400 #### [facility] [address] [place], [address] Creatinine [Mass/Vol] 1.03 mg/dL Normal 0.70-1.20 [facility] Comment on above: Performed By: #### L 100.0100, L500.2500, L501.2450, L500.3400 #### [facility] [address] [place], [address] ECRCL 109.33 ml/min Normal 50-250 [facility] Comment on above: Performed By: #### L 100.0100, L500.2500, L501.2450, L500.3400 #### [facility] [address] [place], [address] GAP 11 Normal 5-15 [facility] Comment on above: Performed By: #### L 100.0100, L500.2500, L501.2450, L500.3400 #### [facility] [address] [place], [address] GFR/1.73 sq M.predicted among non-blacks MDRD (S/P/Bld) [Vol rate/Area] 79 mL/min/{1.73_m2} Normal >60 [facility] Comment on above: Result Comment: mL/m in/1.73m2 CKD-EPI Creatinine Equation (2020) Performed By: #### L 100.0100, L500.2500, L501.2450, L500.3400 #### [facility] [address] [place], [address] Glucose [Mass/Vol] 120 mg/dL High 70-99 [facility] Comment on above: Performed By: #### L 100.0100, L500.2500, L501.2450, L500.3400 #### [facility] [address] [place], [address] Potassium [Moles/Vol] 3.9 mmol/L Normal 3.3-5.1 [facility] Comment on above: Performed By: #### L 100.0100, L500.2500, L501.2450, L500.3400 #### [facility] [address] [place], [address] Sodium [Moles/Vol] 139 mmol/L Normal 133-145 [facility] Comment on above: Performed By: #### L 100.0100, L500.2500, L501.2450, L500.3400 #### [facility] [address] [place], [address] Urea nitrogen [Mass/Vol] 12 mg/dL Normal 4-19 [facility] Comment on above: Performed By: #### L 100.0100, L500.2500, L501.2450, L500.3400 #### [facility] [address] [place], [address] Basophil percentageOrdered B y: Reese King on 03-11-2025 Basophils/100 WBC (Bld) 0.2 % 0-1 [facility] Bilirubin directOrdered By: Reese King on 03-11-2025 Bilirubin.direct [Mass/Vol] 0.31 mg/dL High 0.00-0.30 [facility] Bilirubin, totalOrdered By: Reese King on 03-11-2025 Bilirubin [Mass/Vol] 0.48 mg/dL 0.00-1.30 [facility] CBC W/Diff, Automatedon 02-19 Absolute Lymph 3.74 X10 3/uL Normal 0.83-4.51 [facility] Comment on above: Performed By: #### L 100.0100, L500.2500, L501.2450, L500.3400 #### [facility] [address] [place], [address] Absolute Neut 4.9 X10 3/uL Normal 2.0-7.7 [facility] Comment on above: Performed By: #### L 100.0100, L500.2500, L501.2450, L500.3400 #### [facility] [address] [place], [address] Basophils/100 WBC (Bld) 0.2 % Normal 0-1 [facility] Comment on above: Performed By: #### L 100.0100, L500.2500, L501.2450, L500.3400 #### [facility] [address] [place], [address] Eosinophils/100 WBC (Bld) 1.2 % Normal 0-5 [facility] Comment on above: Performed By: #### L 100.0100, L500.2500, L501.2450, L500.3400 #### [facility] [address] [place], [address] Erythrocyte distribution width (RBC) [Ratio] 12.5 % Normal 11.6-14.6 [facility] Comment on above: Performed By: #### L 100.0100, L500.2500, L501.2450, L500.3400 #### [facility] [address] [place], [address] Hematocrit (Bld) [Volume fraction] 40.8 % Normal 37-47 [facility] Comment on above: Performed By: #### L 100.0100, L500.2500, L501.2450, L500.3400 #### [facility] [address] [place], [address] Hemoglobin (Bld) [Mass/Vol] 13.7 g/dL Normal 12.0-15.0 [facility] Comment on above: Performed By: #### L 100.0100, L500.2500, L501.2450, L500.3400 #### [facility] [address] [place], [address] IG% 0.200 Normal 0.0-0.9 [facility] Comment on above: Result Comment: IG% - Immature Granulocytes (promyelocytes, myelocytes and metamyelocytes) > 1% indicates that a LEFT SHIFT is Present. Performed By: #### L 100.0100, L500.2500, L501.2450, L500.3400 #### [facility] [address] [place], [address] Lymphocytes/100 WBC (Bld) 40.6 % Normal 19-41 [facility] Comment on above: Performed By: #### L 100.0100, L500.2500, L501.2450, L500.3400 #### [facility] [address] [place], [address] MCH (RBC) [Entitic mass] 30.8 pg Normal 27.0-32.0 [facility] Comment on above: Performed By: #### L 100.0100, L500.2500, L501.2450, L500.3400 #### [facility] [address] [place], [address] MCHC (RBC) [Mass/Vol] 33.6 g/dL Normal 32-36 [facility] Comment on above: Performed By: #### L 100.0100, L500.2500, L501.2450, L500.3400 #### [facility] [address] [place], [address] MCV (RBC) [Entitic vol] 91.7 fL Normal 81-99 [facility] Comment on above: Performed By: #### L 100.0100, L500.2500, L501.2450, L500.3400 #### [facility] [address] [place], [address] Monocytes/100 WBC (Bld) 5.2 % Normal 0-10 [facility] Comment on above: Performed By: #### L 100.0100, L500.2500, L501.2450, L500.3400 #### [facility] [address] [place], [address] Neutrophils/100 WBC (Bld) 52.6 % Normal 47-70 [facility] Comment on above: Performed By: #### L 100.0100, L500.2500, L501.2450, L500.3400 #### [facility] [address] [place], [address] Nucleated RBC (Bld) [#/Vol] 0 10*3/uL Normal 0-5 [facility] Comment on above: Performed By: #### L 100.0100, L500.2500, L501.2450, L500.3400 #### [facility] [address] [place], [address] Platelet mean volume (Bld) [Entitic vol] 11.4 fL Normal 6.2-12.0 [facility] Comment on above: Performed By: #### L 100.0100, L500.2500, L501.2450, L500.3400 #### [facility] [address] [place], [address] Platelets (Bld) [#/Vol] 324 10*3/uL Normal 150-450 [facility] Comment on above: Performed By: #### L 100.0100, L500.2500, L501.2450, L500.3400 #### [facility] [address] [place], [address] RBC (Bld) [#/Vol] 4.45 10*6/uL Normal 4.2-5.4 [facility] Comment on above: Performed By: #### L 100.0100, L500.2500, L501.2450, L500.3400 #### [facility] [address] [place], [address] RDW SD 41.7 fl Normal 35.1-43.9 [facility] Comment on above: Performed By: #### L 100.0100, L500.2500, L501.2450, L500.3400 #### [facility] [address] [place], [address] WBC (Bld) [#/Vol] 9.2 10*3/uL Normal 4.4-11.0 [facility] Comment on above: Performed By: #### L 100.0100, L500.2500, L501.2450, L500.3400 #### [facility] [address] [place], [address] Carbon dioxide, total [Moles /volume] in Central venous bloodOrdered By: Reese King on 03-11-2025 CO2 [Moles/Vol] 24.0 mmol/L 21.0-32.0 [facility] Chloride assayOrdered By: Celeste King on 03-11-2025 Chloride [Moles/Vol] 104 mmol/L 98-108 [facility] Emergency Department Summary on 03-11-2025 Emergency Department Summary [facility] Medical Records Department [address] [place] [address] Emergency Department Summary 03/11/25 MR#: [id number] Acct: [id number] Name: GABRIELLE CARROLL Rep #: [id number] : 2000 24 From: Reese King DO PCP: Dr. Barry Reeves MD Status:DEP ER Location: ED ADDENDUM by Dr. Ayden Wolfe MD on 03/12/25 at 1254 Ultrasound called me because they performed gallbladder ultrasound on this patient that resulted. There is no evidence of acute cholecystitis on the report possibly gallstones. The night physician who saw the patient was concerned about this possibly being biliary colic. She did not have a leukocytosis but a couple of liver enzymes were elevated so I do not disagree with all of that. Patient was referred to primary care doctor that I believe retired. I am going to have staff call the patient and relay a referral to general surgery for her. I would recommend that she make a follow-up appointment to be seen as soon as possible for this. 03/12/25 1254 Cosigner Signature (if applicable): cc: Dr. Barry Reeves MD * Signed HPI History of Present Illness Chief Complaint: Abd Pain Informant: patient Narrative Narrative: Patient is a 24-year-old female with past medical history of herniated lumbar disc. She was seen on March 09 the secondary to upper abdominal pain and at that time had basic labs a urine sample and CT scan with IV. Labs and urine sample revealed no clinically significant findings and CT scan failed to reveal any type of abdominal pathology. Patient states she was feeling better after the evaluation on Monday. She states that the rest of Monday and Monday she was doing well and went to bed normally. She states she then awoke with upper abdominal discomfort and nausea. She denies any recent trauma or excessive activity and she states that there has been no sick contact. However with the pain returning she presents for repeat evaluation. [facility] Medical History Enlarged liver Home Medications ???Medication ???Instructions ???Recorded ???Last Taken ???Type methocarbamol 500 mg tablet 1,000 mg (2 x 500 mg) PO 4X/DAY Unknown Rx PRN Muscle pain/spasm #56 tabs ondansetron 4 mg disintegrating 4 mg PO TID PRN nausea and 5 Unknown Rx tablet vomiting #21 tabs oxycodone-acetaminophen 5 mg-325 1 tab PO Q6H PRN pain 3 days #12 0 03/11/25 Unknown Rx mg tablet (Percocet) tabs Allergy/AdvReac Type Severity Reaction Status Date / Time sumatriptan (From Imitrex) Allergy Rash Verified 03/11/25 03:36 Family History Grandmother Cancer Hypertension Surgical History Hx of section Hx of dilation and curettage [place] teeth removed Hx of tonsillectomy Social History household members: friend(s) Smoking Status: Never smoker alcohol intake: never substance use type: marijuana ROS ROS ED Constitutional Constitutional ED: Denies chills or fever(s) Eyes Eyes: Denies change in vision ENT ENT ED: Denies sore throat Cardiovascular Cardiovascular: Denies chest pain Respiratory/Chest Respiratory/Chest: Denies cough or dyspnea Gastrointestinal Gastrointestinal: Reports abdominal pain and nausea; Denies diarrhea or vomiting Genitourinary Genitourinary ED: Denies dysuria or hematuria Musculoskeletal Musculoskeletal: Reports back pain and other Details: Patient reports back pain is chronic in nature Integumentary Denies rash Neurologic Neurologic: Denies headache(s) Hematologic/Lymphatic Hematologic/Lymphatic: Denies easy bleeding or easy bruising EXAM Physical Exam Const Vital Signs: 03/11/25 03:37 Temperature 96.6 F L Temperature Source Axillary Pulse Rate 71 Respiratory Rate 18 Blood Pressure 128/61 H Blood Pressure Mean 83 Pulse Ox 99 Oxygen Delivery Method Room Air Positive well nourished, well developed and obese General Appearance ED: well developed; Negative for pallor Nutritional Appearance: obese HEENT Reports moist mucous membranes HEENT Narrative: No tongue or lip swelling no oral lesions no airway edema or compromise No secondary findings in the posterior pharynx to suggest infection Eyes PERRL and EOMs intact bilaterally General Eye ED: Negative for scleral icterus Neck supple Neck Narrative: No nuchal rigidity or meningeal signs Resp normal respiratory effort and clear to auscultation bilaterally Cardio regular rate and regular rhythm Rate: other Other Details: Heart is regular rate and rhythm without murmurs rubs or gallop Radial and carotid pulses are (more content not included)... Normal [facility] Eosinophil percentageOrdered By: Reese King on 03-11-2025 Eosinophils/100 WBC (Bld) 1.2 % 0-5 [facility] Erythrocyte distribution wid th ratioOrdered By: Reese King on 03-11-2025 Erythrocyte distribution width (RBC) [Ratio] 12.5 % 11.6-14.6 [facility] Erythrocyte distribution wid th standard deviationOrdered By: Reese King on 03-11-2025 Erythrocyte distribution width (RBC) [Ratio] 41.7 fl 35.1-43.9 [facility] Glomerular filtration rate ( GFR) estimation/1.73 sq m using serum, plasma, or whole bOrdered By: Reese King on 03-11-2025 GFR/1.73 sq M.predicted among non-blacks MDRD (S/P/Bld) [Vol rate/Area] 79 mL/min/{1.73_m2} >60 [facility] Comment on above: mL/min/1.73m2 CKD-EP I Creatinine Equation (2020) Hematocrit Auto (Bld) [Volum e fraction]Ordered By: Reese King on 03-11-2025 Hematocrit (Bld) [Volume fraction] 40.8 % 37-47 [facility] Hemoglobin measurementOrdere d By: Reese King on 03-11-2025 Hemoglobin (Bld) [Mass/Vol] 13.7 g/dL 12.0-15.0 [facility] Immature granulocytes/100 WB C Auto (Bld)Ordered By: Reese King on 03-11-2025 Immature granulocytes/100 WBC (Bld) 0.200 % 0.0-0.9 [facility] Comment on above: IG% - Immature Granu locytes (promyelocytes, myelocytes and metamyelocytes) > 1% indicates that a LEFT SHIFT is Present. Laboratory - Chemistry and C hemistry - challengeOrdered By: Reese King on 03-11-2025 AST [Catalytic activity/Vol] 165 U/L High <32 [facility] Lipaseon 03-11-2025 Lipase [Catalytic activity/Vol] 46 U/L Normal 13-75 [facility] Comment on above: Result Comment: Elisha bergeron note: LIPASE revised reference range effective 23. New Lipase methodology. Expected to produce lower values than the previous assay method. NEW Reference Range: 13 - 75 U/L Performed By: #### L 100.0100, L500.2500, L501.2450, L500.3400 ####[facility] [address] [place], [place], [id number] Lipase measurementOrdered By : Reese King on 03-11-2025 Lipase [Catalytic activity/Vol] 46 U/L 13-75 [facility] Comment on above: Please note:LIPASE r evised reference range effective 23. New Lipase methodology. Expected to produce lower values than the previous assay method. NEW Reference Range: 13 - 75 U/L Liver Profileon 03-11-2025 Albumin [Mass/Vol] 4.2 g/dL Normal 3.5-5.0 [facility] Comment on above: Performed By: #### L 100.0100, L500.2500, L501.2450, L500.3400 ####[facility] [address] [place], [address] ALK PHOS 71 U/L Normal 35-104 [facility] Comment on above: Performed By: #### L 100.0100, L500.2500, L501.2450, L500.3400 ####[facility] [address] [place], [address] ALT [Catalytic activity/Vol] 190 U/L High <=34 [facility] Comment on above: Performed By: #### L 100.0100, L500.2500, L501.2450, L500.3400 ####[facility] [address] [place], [address] AST [Catalytic activity/Vol] 165 U/L High <=31 [facility] Comment on above: Performed By: #### L 100.0100, L500.2500, L501.2450, L500.3400 ####[facility] [address] [place], [address] Bilirubin [Mass/Vol] 0.48 mg/dL Normal 0.00-1.30 [facility] Comment on above: Performed By: #### L 100.0100, L500.2500, L501.2450, L500.3400 ####[facility] [address] [place], [address] Bilirubin.direct [Mass/Vol] 0.31 mg/dL High 0.00-0.30 [facility] Comment on above: Performed By: #### L 100.0100, L500.2500, L501.2450, L500.3400 ####[facility] [address] [place], [address] Globulin (S) [Mass/Vol] 3.1 g/dL Normal 2.2-4.2 [facility] Comment on above: Performed By: #### L 100.0100, L500.2500, L501.2450, L500.3400 ####[facility] [address] [place], [address] T PROT 7.4 g/dL Normal 5.9-8.4 [facility] Comment on above: Performed By: #### L 100.0100, L500.2500, L501.2450, L500.3400 ####[facility] [address] [place], [address] MCV (mean corpuscular volume ) determinationOrdered By: Reese King on 03-11-2025 MCV (RBC) [Entitic vol] 91.7 fL 81-99 [facility] Mean corpuscular hemoglobin (MCH) determinationOrdered By: Reese King on 03-11-2025 MCH (RBC) [Entitic mass] 30.8 pg 27.0-32.0 [facility] Mean corpuscular hemoglobin concentration (MCHC) determinationOrdered By: Reese King on 03-11-2025 MCHC (RBC) [Mass/Vol] 33.6 g/dL 32-36 [facility] Mean platelet volume determi nationOrdered By: Reese King on 03-11-2025 Platelet mean volume (Bld) [Entitic vol] 11.4 fL 6.2-12.0 [facility] Monocyte percentageOrdered B y: Reese King on 03-11-2025 Monocytes/100 WBC (Bld) 5.2 % 0-10 [facility] Neutrophil percentageOrdered By: Reese King on 03-11-2025 Neutrophils/100 WBC (Bld) 52.6 % 47-70 [facility] Nucleated red blood cell per centageOrdered By: Reese King on 03-11-2025 Nucleated RBC/100 WBC (Bld) [Ratio] 0 % 0-5 [facility] Platelet countOrdered By: Celeste King on 03-11-2025 Platelets (Bld) [#/Vol] 324 10*3/uL 150-450 [facility] Potassium measurement (mass/ volume)Ordered By: Reese King on 03-11-2025 Potassium (Unsp spec) [Mass/Vol] 3.9 mmol/L 3.3-5.1 [facility] RBC Auto (Bld) [#/Vol]Ordere d By: Reese King on 03-11-2025 RBC (Bld) [#/Vol] 4.45 10*6/uL 4.2-5.4 [facility] Serum creatinine measurement (mass/volume)Ordered By: eRese King on 03-11-2025 Creatinine [Mass/Vol] 1.03 mg/dL 0.70-1.20 [facility] Serum globulin measurementOr dered By: Reese King on 03-11-2025 Globulin (S) [Mass/Vol] 3.1 g/dL 2.2-4.2 [facility] Serum glucose measurement (m ass/volume)Ordered By: Reese King on 03-11-2025 Glucose [Mass/Vol] 120 mg/dL High 70-99 [facility] Serum or plasma alanine cruz otransferase (ALT) measurementOrdered By: Reese King on 03-11-2025 ALT [Catalytic activity/Vol] 190 U/L High <35 [facility] Serum or plasma albumin valdez urement (mass/volume)Ordered By: Reese King on 03-11-2025 Albumin [Mass/Vol] 4.2 g/dL 3.5-5.0 [facility] Serum or plasma alkaline jose sphatase measurementOrdered By: Reese King on 03-11-2025 ALP [Catalytic activity/Vol] 71 U/L 35-104 [facility] Serum or plasma calcium valdez urement (mass/volume)Ordered By: Reese King on 03-11-2025 Calcium [Mass/Vol] 9.9 mg/dL 7.6-11.0 [facility] Serum or plasma urea nitroge n measurement (mass/volume)Ordered By: Reese King on 03-11-2025 Urea nitrogen [Mass/Vol] 12 mg/dL 4-19 [facility] Sodium levelOrdered By: Anurag King on 03-11-2025 Sodium [Moles/Vol] 139 mmol/L 133-145 [facility] Total proteinOrdered By: Ricardo King on 03-11-2025 Protein [Mass/Vol] 7.4 g/dL 5.9-8.4 [facility] Urinalysis, Completeon 03-11 BACTERIA Normal None Seen [facility] Comment on above: Order Comment: CLEAN CATCH Result Comment: PT D ISCHARGED Performed By: #### L 400.0001 ####[facility] [address] [place], [address] BILIRUBIN URINE Normal Negative [facility] Comment on above: Order Comment: CLEAN CATCH Result Comment: PT D ISCHARGED Performed By: #### L 400.0001 ####[facility] [address] [place], [address] Clarity (U) Normal Clear [facility] Comment on above: Order Comment: CLEAN CATCH Result Comment: PT D ISCHARGED Performed By: #### L 400.0001 ####[facility] [address] [place], [address] Color (U) Normal Yellow [facility] Comment on above: Order Comment: CLEAN CATCH Result Comment: PT D ISCHARGED Performed By: #### L 400.0001 ####[facility] [address] [place], [address] EPI,SQUAMOUS Normal 5-10 [facility] Comment on above: Order Comment: CLEAN CATCH Result Comment: PT D ISCHARGED Performed By: #### L 400.0001 ####[facility] [address] [place], [address] GLUCOSE, UR Normal Normal [facility] Comment on above: Order Comment: CLEAN CATCH Result Comment: PT D ISCHARGED Performed By: #### L 400.0001 ####[facility] [address] [place], [address] KETONE UR Normal Negative [facility] Comment on above: Order Comment: CLEAN CATCH Result Comment: PT D ISCHARGED Performed By: #### L 400.0001 ####[facility] [address] [place], [address] LEUK ESTERASE Normal Negative [facility] Comment on above: Order Comment: CLEAN CATCH Result Comment: PT D ISCHARGED Performed By: #### L 400.0001 ####[facility] [address] [place], [address] Mucus Ql (Urine sed) Normal [facility] Comment on above: Order Comment: CLEAN CATCH Result Comment: PT D ISCHARGED Performed By: #### L 400.0001 ####[facility] [address] [place], [address] Nitrite Ql (U) Normal Negative [facility] Comment on above: Order Comment: CLEAN CATCH Result Comment: PT D ISCHARGED Performed By: #### L 400.0001 ####[facility] [address] [place], [address] OCCULT BLOOD-UR Normal Negative [facility] Comment on above: Order Comment: CLEAN CATCH Result Comment: PT D ISCHARGED Performed By: #### L 400.0001 ####[facility] [address] [place], [address] pH UR Normal 5.0 - 8.0 [facility] Comment on above: Order Comment: CLEAN CATCH Result Comment: PT D ISCHARGED Performed By: #### L 400.0001 ####[facility] [address] [place], [address] PROT DIPSTX Normal Negative [facility] Comment on above: Order Comment: CLEAN CATCH Result Comment: PT D ISCHARGED Performed By: #### L 400.0001 ####[facility] [address] [place], [address] RBC Normal 0-5 [facility] Comment on above: Order Comment: CLEAN CATCH Result Comment: PT D ISCHARGED Performed By: #### L 400.0001 ####[facility] [address] [place], [address] SP.GR. DIPSTX Normal 1.002-1.030 [facility] Comment on above: Order Comment: CLEAN CATCH Result Comment: PT D ISCHARGED Performed By: #### L 400.0001 ####[facility] [address] [place], [address] UR Preservative Normal [facility] Comment on above: Order Comment: CLEAN CATCH Result Comment: PT D ISCHARGED Performed By: #### L 400.0001 ####[facility] [address] [place], [address] UROBILI Normal Normal [facility] Comment on above: Order Comment: CLEAN CATCH Result Comment: PT D ISCHARGED Performed By: #### L 400.0001 ####[facility] [address] [place], [address] WBC Normal 0-5 [facility] Comment on above: Order Comment: CLEAN CATCH Result Comment: PT D ISCHARGED Performed By: #### L 400.0001 ####[facility] [address] [place], [address] White blood cell (WBC) count Ordered By: Reese King on 03-11-2025 WBC (Bld) [#/Vol] 9.2 10*3/uL 4.4-11.0 [facility] Abdomen/Pelvis W IV Cont ONL Yon 03-09-2025 Abdomen/Pelvis W IV Cont ONLY [facility] Imaging Services [address] [place] [address] Abdomen/Pelvis W IV Cont ONLY MR#: [id number] Acct: [id number] Name: GLENGABRIELLE HAGAN Rep #: [id number] : 2000 F 24 From: Phuong Rider DO PCP: Dr. Barry Reeves MD Status: REG ER Study: Abdomen/Pelvis W IV Cont ONLY Date of Exam: Exam# [id number] Ordering Dr: Deuce Levy DO PROCEDURE: ABDOMEN/PELVIS W IV CONT ONLY 03/09/2025 REASON FOR EXAM: ABDOMINAL PAIN TECHNIQUE: Abdomen and pelvis CT with intravenous contrast. Coronal and Sagittal reconstruction series were provided. PATIENT PREPARATION: Per protocol ORAL CONTRAST TYPE: None. AMOUNT: mL CONTRAST: Isovue 370 VOLUME: 98 mL Not Provided Gauge IV One or more dose reduction techniques were used (e.g., Automated exposure control, adjustment of the mA and/or kV according to patient size, use of iterative reconstruction technique. RADIATION DOSE SUMMARY: CTDlvol: 24 mGy DLP: 1363 mGycm COMPARISON: None FINDINGS: Lung bases: Unremarkable Liver: Normal size. No mass. Gallbladder: Unremarkable Spleen: Normal size. Pancreas: Normal size without evidence of mass surrounding inflammation or ductal dilation. Adrenals: Unremarkable Kidneys: Normal renal sizes. No hydronephrosis. Bladder: Unremarkable Reproductive Organs: Normal uterine size and contour. Ovaries are unremarkable. Bowel: Unremarkable Appendix: Unremarkable Lymph nodes: No lymphadenopathy. Vasculature: The abdominal aorta and IVC are normal. Peritoneum / Retroperitoneum: No free air or free fluid. Bones: Unremarkable CT/Abdomen/Pelvis W IV Cont ONLY IMPRESSION: NORMAL CT ABDOMEN AND PELVIS WITH CONTRAST. Reading Location: [place] CC: Dr. Deuce Levy DO; Dr. 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 Normal [facility] Absolute lymphocyte countOrd ered By: Deuce Levy on 03-09-2025 Lymphocytes Auto (Unsp spec) [#/Vol] 2.33 10*3/uL 0.83-4.51 [facility] Absolute neutrophil countOrd ered By: Deuce Levy on 03-09-2025 Neutrophils (Bld) [#/Vol] 7.3 10*3/uL 2.0-7.7 [facility] Anion gap in Serum or Plasma Ordered By: Deuce Levy on 03-09-2025 Anion gap [Moles/Vol] 11 mmol/L 5-15 [facility] Automated lymphocyte count a s percentage of total leukocytesOrdered By: Deuce Levy on 03-09-2025 Lymphocytes/100 WBC Auto (Unsp spec) 23.0 % 19-41 [facility] BUN/creatinine ratioOrdered By: Deuce Levy on 03-09-2025 Urea nitrogen/Creatinine [Mass ratio] 11.7 mg/mg - [facility] Basophil percentageOrdered B y: Deuce Singhlewis on 03-09-2025 Basophils/100 WBC (Bld) 0.2 % 0-1 [facility] Beta HCG ( test) Ql Ordered By: Deuce Levy on 03-09-2025 Serum Test, Qualitative Negative [facility] Bilirubin Test strip Ql (U)O rdered By: Deuce Levy on 03-09-2025 Bilirubin Ql (U) Negative Negative [facility] Bilirubin, totalOrdered By: Deuce Levy on 03-09-2025 Bilirubin [Mass/Vol] 0.59 mg/dL 0.00-1.30 [facility] CBC W/Diff, Automatedon 02-19 Absolute Lymph 2.33 X10 3/uL Normal 0.83-4.51 [facility] Comment on above: Performed By: #### L 100.0100 ####[facility] [address] [place], [address] Absolute Neut 7.3 X10 3/uL Normal 2.0-7.7 [facility] Comment on above: Performed By: #### L 100.0100 ####[facility] [address] [place], [address] Basophils/100 WBC (Bld) 0.2 % Normal 0-1 [facility] Comment on above: Performed By: #### L 100.0100 ####[facility] [address] [place], [address] Eosinophils/100 WBC (Bld) 0.5 % Normal 0-5 [facility] Comment on above: Performed By: #### L 100.0100 ####[facility] [address] [place], [address] Erythrocyte distribution width (RBC) [Ratio] 12.4 % Normal 11.6-14.6 [facility] Comment on above: Performed By: #### L 100.0100 ####[facility] [address] [place], [address] Hematocrit (Bld) [Volume fraction] 38.8 % Normal 37-47 [facility] Comment on above: Performed By: #### L 100.0100 ####[facility] [address] [place], [address] Hemoglobin (Bld) [Mass/Vol] 13.1 g/dL Normal 12.0-15.0 [facility] Comment on above: Performed By: #### L 100.0100 ####[facility] [address] [place], [address] IG% 0.300 Normal 0.0-0.9 [facility] Comment on above: Result Comment: IG% - Immature Granulocytes (promyelocytes, myelocytes and metamyelocytes) > 1% indicates that a LEFT SHIFT is Present. Performed By: #### L 100.0100 ####[facility] [address] [place], [address] Lymphocytes/100 WBC (Bld) 23.0 % Normal 19-41 [facility] Comment on above: Performed By: #### L 100.0100 ####[facility] [address] [place], [address] MCH (RBC) [Entitic mass] 31.0 pg Normal 27.0-32.0 [facility] Comment on above: Performed By: #### L 100.0100 ####[facility] [address] [place], [address] MCHC (RBC) [Mass/Vol] 33.8 g/dL Normal 32-36 [facility] Comment on above: Performed By: #### L 100.0100 ####[facility] [address] [place], [address] MCV (RBC) [Entitic vol] 91.7 fL Normal 81-99 [facility] Comment on above: Performed By: #### L 100.0100 ####[facility] [address] [place], [address] Monocytes/100 WBC (Bld) 3.7 % Normal 0-10 [facility] Comment on above: Performed By: #### L 100.0100 ####[facility] [address] [place], [address] Neutrophils/100 WBC (Bld) 72.3 % High 47-70 [facility] Comment on above: Performed By: #### L 100.0100 ####[facility] [address] [place], [address] Nucleated RBC (Bld) [#/Vol] 0 10*3/uL Normal 0-5 [facility] Comment on above: Performed By: #### L 100.0100 ####[facility] [address] [place], [address] Platelet mean volume (Bld) [Entitic vol] 11.4 fL Normal 6.2-12.0 [facility] Comment on above: Performed By: #### L 100.0100 ####[facility] [address] [place], [address] Platelets (Bld) [#/Vol] 304 10*3/uL Normal 150-450 [facility] Comment on above: Performed By: #### L 100.0100 ####[facility] [address] [place], [address] RBC (Bld) [#/Vol] 4.23 10*6/uL Normal 4.2-5.4 [facility] Comment on above: Performed By: #### L 100.0100 ####[facility] [facility] [address] [place], [address] RDW SD 41.3 fl Normal 35.1-43.9 [facility] Comment on above: Performed By: #### L 100.0100 ####[facility] [address] [place], [address] WBC (Bld) [#/Vol] 10.1 10*3/uL Normal 4.4-11.0 [facility] Comment on above: Performed By: #### L 100.0100 ####[facility] [address] [place], [address] Carbon dioxide, total [Moles /volume] in Central venous bloodOrdered By: Deuce Levy on 03-09-2025 CO2 [Moles/Vol] 21.1 mmol/L 21.0-32.0 [facility] Chloride assayOrdered By: Raad Levy on 03-09-2025 Chloride [Moles/Vol] 105 mmol/L 98-108 [facility] Comprehensive Metabolic Prof ilon 03-09-2025 Albumin [Mass/Vol] 4.1 g/dL Normal 3.5-5.0 [facility] Comment on above: Performed By: #### L 501.2450, L700.6800, L500.4050 ####[facility] [address] [place], [address] Albumin/Globulin [Mass ratio] 1.4 {ratio} Normal 0.9-2.4 [facility] Comment on above: Performed By: #### L 501.2450, L700.6800, L500.4050 ####[facility] [address] [place], [address] ALK PHOS 61 U/L Normal 35-104 [facility] Comment on above: Performed By: #### L 501.2450, L700.6800, L500.4050 ####[facility] [address] [place], [address] ALT [Catalytic activity/Vol] 73 U/L High <=34 [facility] Comment on above: Performed By: #### L 501.2450, L700.6800, L500.4050 ####[facility] [address] [place], [address] AST [Catalytic activity/Vol] 137 U/L High <=31 [facility] Comment on above: Performed By: #### L 501.2450, L700.6800, L500.4050 ####[facility] [address] [place], [address] Bilirubin [Mass/Vol] 0.59 mg/dL Normal 0.00-1.30 [facility] Comment on above: Performed By: #### L 501.2450, L700.6800, L500.4050 ####[facility] [address] [place], [address] BUN/CRE 11.7 RATIO Normal 10-20 [facility] Comment on above: Performed By: #### L 501.2450, L700.6800, L500.4050 ####[facility] [address] [place], [address] Calcium [Mass/Vol] 9.2 mg/dL Normal 7.6-11.0 [facility] Comment on above: Performed By: #### L 501.2450, L700.6800, L500.4050 ####[facility] [address] [place], [address] Chloride [Moles/Vol] 105 mmol/L Normal 98-108 [facility] Comment on above: Performed By: #### L 501.2450, L700.6800, L500.4050 ####[facility] [address] [place], [address] CO2 [Moles/Vol] 21.1 mmol/L Normal 21.0-32.0 [facility] Comment on above: Performed By: #### L 501.2450, L700.6800, L500.4050 ####[facility] [address] [place], [address] Creatinine [Mass/Vol] 0.80 mg/dL Normal 0.70-1.20 [facility] Comment on above: Performed By: #### L 501.2450, L700.6800, L500.4050 ####[facility] [address] [place], [address] ECRCL 139.64 ml/min Normal 50-250 [facility] Comment on above: Performed By: #### L 501.2450, L700.6800, L500.4050 ####[facility] [address] [place], [address] GAP 11 Normal 5-15 [facility] Comment on above: Performed By: #### L 501.2450, L700.6800, L500.4050 ####[facility] [address] [place], [address] GFR/1.73 sq M.predicted among non-blacks MDRD (S/P/Bld) [Vol rate/Area] 107 mL/min/{1.73_m2} Normal >60 [facility] Comment on above: Result Comment: mL/m in/1.73m2 CKD-EPI Creatinine Equation (2020) Performed By: #### L 501.2450, L700.6800, L500.4050 ####[facility] [address] [place], [address] Globulin (S) [Mass/Vol] 2.8 g/dL Normal 2.2-4.2 [facility] Comment on above: Performed By: #### L 501.2450, L700.6800, L500.4050 ####[facility] [address] [place], [address] Glucose [Mass/Vol] 135 mg/dL High 70-99 [facility] Comment on above: Performed By: #### L 501.2450, L700.6800, L500.4050 ####[facility] [address] [place], [address] Potassium [Moles/Vol] 3.9 mmol/L Normal 3.3-5.1 [facility] Comment on above: Performed By: #### L 501.2450, L700.6800, L500.4050 ####[facility] [address] [place], [address] Sodium [Moles/Vol] 137 mmol/L Normal 133-145 [facility] Comment on above: Performed By: #### L 501.2450, L700.6800, L500.4050 ####[facility] [address] [place], [address] T PROT 6.9 g/dL Normal 5.9-8.4 [facility] Comment on above: Performed By: #### L 501.2450, L700.6800, L500.4050 ####[facility] [address] [place], [address] Urea nitrogen [Mass/Vol] 9 mg/dL Normal 4-19 [facility] Comment on above: Performed By: #### L 501.2450, L700.6800, L500.4050 ####[facility] [address] [place], [address] Emergency Department Summary on 03-09-2025 Emergency Department Summary [facility] Medical Records Department [address] [place] [address] Emergency Department Summary 03/09/25 MR#: [id number] Acct: [id number] Name: GABRIELLE CARROLL Rep #: [id number] : 2000 24 From: Deuce Levy DO PCP: Dr. Barry Reeves MD Status:DEP ER Location: ED HPI HPI - GI History of Present Illness Chief Complaint: Abd Pain Informant: patient Abdominal Pain/Flank Pain Onset: Today Context: Gradual Onset Timing: Continuous Quality: Stabbing Location: Epigastric, RUQ and LUQ Worsened by: Nothing Relieved by: - (Laying down) Nausea/Vomiting/Emesis GI Symptom: Positive for Nausea and Vomiting Quality: Positive for Nonbilious; Negative for Blood streaks, Coffee ground or Hematemesis Diarrhea/Melena/Hematoc hezia GI Symptom: Negative for Diarrhea, Melena or Hematochezia Associated Symptoms Associated Symptoms: Negative for Dysuria, Frequency or Hematuria Narrative Narrative: Patient presents with abdominal pain that began today. Patient states it started in her back and then went to her upper abdomen. Patient describes it as stabbing. Patient states it is constant. Patient states nothing makes it worse. Patient states it is better when she is able to lay down. Patient admits to some nausea and vomiting. Patient denies any hematemesis or coffee-ground emesis. Patient denies any diarrhea, melena, or hematochezia. Patient denies any dysuria, frequency, or hematuria. Patient states her last menstrual period was approximately 2 weeks ago. [facility] Medical History Enlarged liver Home Medications ???Medication ???Instructions ???Recorded ???Last Taken ???Type methocarbamol 500 mg tablet 1,000 mg (2 x 500 mg) PO 4X/DAY Unknown Rx PRN Muscle pain/spasm #56 tabs Allergy/AdvReac Type Severity Reaction Status Date / Time sumatriptan (From Imitrex) Allergy Rash Verified 03/09/25 14:35 Family History Grandmother Cancer Hypertension Surgical History Hx of section Hx of dilation and curettage [place] teeth removed Hx of tonsillectomy Social History household members: friend(s) Smoking Status: Never smoker alcohol intake: never substance use type: marijuana ROS ROS ED Constitutional Constitutional ED: Denies chills or fever(s) Eyes Eyes: Denies blurry vision or change in vision ENT ENT ED: Denies rhinorrhea or sore throat Cardiovascular Cardiovascular: Denies chest pain or palpitations Respiratory/Chest Respiratory/Chest: Denies cough or dyspnea Gastrointestinal Gastrointestinal: Denies nausea or vomiting Genitourinary Genitourinary ED: Denies dysuria or hematuria Musculoskeletal Musculoskeletal: Reports back pain; Denies neck pain Integumentary Denies abscess or rash Neurologic Neurologic: Denies headache(s) or weakness Allergic/Immunologic Allergic/Immunologic ED: Denies mouth swelling or urticaria EXAM Physical Exam Const Vital Signs: 03/09/25 14:33 03/09/25 16:32 03/09/25 17:56 Temperature 98.1 F 98.1 F Temperature Source Oral Pulse Rate 75 70 70 Respiratory Rate 16 16 Blood Pressure 123/72 H 108/73 106/67 Blood Pressure Mean 89 84 80 Pulse Ox 99 99 Oxygen Delivery Method Room Air Positive well nourished and well developed General Appearance ED: well developed and NAD HEENT Reports moist mucous membranes Neck supple and no JVD Resp normal respiratory effort and clear to auscultation bilaterally Cardio regular rate and regular rhythm GI non-distended Palpation: soft and tender epigastric, LUQ and RUQ; Negative for guarding or rebound tenderness present Neuro CN's II-XII intact bilaterally, moves all extremities and no sensory deficits noted Sensorium / Orientation: alert Motor Exam: strength 5/5 throughout Psych mental status grossly normal MDM MDM MDM Narrative Medical decision making narrative: Differential diagnosis includes gastritis, pancreatitis, peptic ulcer disease, duodenal ulcer, colitis, urinary tract infection, pyelonephritis, bowel obstruction, perforation, and . CBC will be obtained to assess for leukocytosis and anemia. Comprehensive metabolic profile will be obtained to assess for hepatic function, renal function, and electrolyte abnormality. Lipase will be obtained to assess for pancreatitis. Serum hCG will be obtained to assess for . Urinalysis will be obtained to assess for urinary tract infection and hematuria. CT scan of the abdomen and pelvis will be obtained to assess for bowel obstruction, perforation, pancreatitis, and colitis. History Record R (more content not included)... Normal [facility] Eosinophil percentageOrdered By: Deuce Levy on 03-09-2025 Eosinophils/100 WBC (Bld) 0.5 % 0-5 [facility] Epithelial cells.squamous LM Ql (Urine sed)Ordered By: Deuce Levy on 03-09-2025 Epithelial cells.squamous LM.HPF (Urine sed) [#/Area] 0 /[HPF] 5-10 [facility] Erythrocyte distribution wid th (RBC) [Ratio]Ordered By: Deuce Levy on 03-09-2025 Erythrocyte distribution width (RBC) [Entitic vol] 41.3 fL 35.1-43.9 [facility] Erythrocyte distribution wid th ratioOrdered By: Deuce Levy on 03-09-2025 Erythrocyte distribution width (RBC) [Ratio] 12.4 % 11.6-14.6 [facility] Erythrocyte distribution wid th standard deviationOrdered By: Deuce Levy on 03-09-2025 Erythrocyte distribution width (RBC) [Ratio] 41.3 fl 35.1-43.9 [facility] Estimation of creatinine melina aranceOrdered By: Deuce Levy on 03-09-2025 Estimated Creatinine Clearance Calc 139.64 ml/min 50-250 [facility] GFR/1.73 sq M.predicted jamison g non-blacks MDRD (S/P/Bld) [Vol rate/Area]Ordered By: Deuce Levy on 03-09-2025 Estimated GFR (MDRD) Non-Af Amer 107 >60 [facility] Comment on above: mL/min/1.73m2 CKD-EP I Creatinine Equation (2020) Glomerular filtration rate ( GFR) estimation/1.73 sq m using serum, plasma, or whole bOrdered By: Deuce Levy on 03-09-2025 GFR/1.73 sq M.predicted among non-blacks MDRD (S/P/Bld) [Vol rate/Area] 107 mL/min/{1.73_m2} >60 [facility] Comment on above: mL/min/1.73m2 CKD-EP I Creatinine Equation (2020) Glucose Ql (U)Ordered By: Raad Levy on 03-09-2025 Urine Glucose (UA) Normal mg/dl Normal [facility] Hematocrit Auto (Bld) [Volum e fraction]Ordered By: Deuce Levy on 03-09-2025 Hematocrit (Bld) [Volume fraction] 38.8 % 37-47 [facility] Hemoglobin measurementOrdere d By: Deuce Levy on 03-09-2025 Hemoglobin (Bld) [Mass/Vol] 13.1 g/dL 12.0-15.0 [facility] Immature granulocytes/100 WB C Auto (Bld)Ordered By: Deuce Levy on 03-09-2025 Immature granulocytes/100 WBC (Bld) 0.300 % 0.0-0.9 [facility] Comment on above: IG% - Immature Granu locytes (promyelocytes, myelocytes and metamyelocytes) > 1% indicates that a LEFT SHIFT is Present. Ketones Test strip Ql (U)Ord ered By: Deuce Levy on 03-09-2025 Ketones Ql (U) Negative Negative [facility] Laboratory - Chemistry and C hemistry - challengeOrdered By: Deuce Levy on 03-09-2025 AST [Catalytic activity/Vol] 137 U/L High <32 [facility] Lipaseon 03-09-2025 Lipase [Catalytic activity/Vol] 33 U/L Normal 13-75 [facility] Comment on above: Result Comment: Elisha bergeron note: LIPASE revised reference range effective 23. New Lipase methodology. Expected to produce lower values than the previous assay method. NEW Reference Range: 13 - 75 U/L Performed By: #### L 501.2450, L700.6800, L500.4050 ####[facility] [address] [place], [address] Lipase measurementOrdered By : Deuce Levy on 03-09-2025 Lipase [Catalytic activity/Vol] 33 U/L 13-75 [facility] Comment on above: Please note:LIPASE r evised reference range effective 23. New Lipase methodology. Expected to produce lower values than the previous assay method. NEW Reference Range: 13 - 75 U/L Lymphocytes Auto (Unsp spec) [#/Vol]Ordered By: Deuce Levy on 03-09-2025 Lymphocytes (Bld) [#/Vol] 2.33 10*3/uL 0.83-4.51 [facility] Lymphocytes/100 WBC Auto (Un sp spec)Ordered By: eDuce Levy on 03-09-2025 Lymphocytes/100 WBC (Bld) 23.0 % 19-41 [facility] MCV (mean corpuscular volume ) determinationOrdered By: Deuce Levy on 03-09-2025 MCV (RBC) [Entitic vol] 91.7 fL 81-99 [facility] Mean corpuscular hemoglobin (MCH) determinationOrdered By: Deuce Leyv on 03-09-2025 MCH (RBC) [Entitic mass] 31.0 pg 27.0-32.0 [facility] Mean corpuscular hemoglobin concentration (MCHC) determinationOrdered By: Deuce Levy on 03-09-2025 MCHC (RBC) [Mass/Vol] 33.8 g/dL 32-36 [facility] Mean platelet volume determi nationOrdered By: Deuce Levy on 03-09-2025 Platelet mean volume (Bld) [Entitic vol] 11.4 fL 6.2-12.0 [facility] Microscopic analysis of urin e for red blood cells (RBC)Ordered By: Deuce Levy on 03-09-2025 Microscopic analysis of urine for red blood cells (RBC) 0 SEEN /hpf 0-5 [facility] Urine RBC 0 SEEN /hpf 0-5 [facility] Monocyte percentageOrdered B y: Deuce Levy on 03-09-2025 Monocytes/100 WBC (Bld) 3.7 % 0-10 [facility] Mucus LM Ql (Urine sed)Order ed By: Deuce Levy on 03-09-2025 Mucus Ql (Urine sed) 0 SEEN /hpf [facility] Neutrophil percentageOrdered By: Deuce Levy on 03-09-2025 Neutrophils/100 WBC (Bld) 72.3 % High 47-70 [facility] Nitrite Test strip Ql (U)Ord ered By: Deuce Levy on 03-09-2025 Nitrite Ql (U) Negative Negative [facility] Nucleated red blood cell per centageOrdered By: Deuce Levy on 03-09-2025 Nucleated RBC/100 WBC (Bld) [Ratio] 0 % 0-5 [facility] Platelet countOrdered By: Raad Levy on 03-09-2025 Platelets (Bld) [#/Vol] 304 10*3/uL 150-450 [facility] Potassium (Unsp spec) [Mass/ Vol]Ordered By: Deuce Levy on 03-09-2025 Potassium [Moles/Vol] 3.9 mmol/L 3.3-5.1 [facility] Potassium measurement (mass/ volume)Ordered By: Deuce Levy on 03-09-2025 Potassium (Unsp spec) [Mass/Vol] 3.9 mmol/L 3.3-5.1 [facility] ,Serum,hCG Quali.on 03-09-2025 HCG, SERUM QUAL Negative Normal [facility] Comment on above: Performed By: #### L 501.2450, L700.6800, L500.4050 ####[facility] [address] [place], [address] Protein Test strip Ql (U)Ord ered By: Deuce Levy on 03-09-2025 Protein Ql (U) 15 mg/dl High Negative [facility] RBC Auto (Bld) [#/Vol]Ordere d By: Deuce Levy on 03-09-2025 RBC (Bld) [#/Vol] 4.23 10*6/uL 4.2-5.4 [facility] Serum beta-hCG test, qualita tiveOrdered By: Deuce Levy on 03-09-2025 Beta HCG ( test) Ql Negative [facility] Serum creatinine measurement (mass/volume)Ordered By: Deuce Levy on 03-09-2025 Creatinine [Mass/Vol] 0.80 mg/dL 0.70-1.20 [facility] Serum globulin measurementOr dered By: Deuce Levy on 03-09-2025 Globulin (S) [Mass/Vol] 2.8 g/dL 2.2-4.2 [facility] Serum glucose measurement (m ass/volume)Ordered By: Deuce Levy on 03-09-2025 Glucose [Mass/Vol] 135 mg/dL High 70-99 [facility] Serum or plasma alanine cruz otransferase (ALT) measurementOrdered By: Deuce Levy on 03-09-2025 ALT [Catalytic activity/Vol] 73 U/L High <35 [facility] Serum or plasma albumin valdez urement (mass/volume)Ordered By: Deuce Levy on 03-09-2025 Albumin [Mass/Vol] 4.1 g/dL 3.5-5.0 [facility] Serum or plasma albumin/glob ulin mass ratioOrdered By: Deuce Levy on 03-09-2025 Albumin/Globulin [Mass ratio] 1.4 {ratio} 0.9-2.4 [facility] Serum or plasma alkaline jose sphatase measurementOrdered By: Deuce Levy on 03-09-2025 ALP [Catalytic activity/Vol] 61 U/L 35-104 [facility] Serum or plasma calcium valdez urement (mass/volume)Ordered By: Deuce Levy on 03-09-2025 Calcium [Mass/Vol] 9.2 mg/dL 7.6-11.0 [facility] Serum or plasma urea nitroge n measurement (mass/volume)Ordered By: Deuce Levy on 03-09-2025 Urea nitrogen [Mass/Vol] 9 mg/dL 4-19 [facility] Sodium levelOrdered By: Deuce Levy on 03-09-2025 Sodium [Moles/Vol] 137 mmol/L 133-145 [facility] Squamous epithelial cells de tection in urine sediment by light microscopyOrdered By: Deuce Levy on 03-09-2025 Epithelial cells.squamous LM Ql (Urine sed) 0-5 SEEN /hpf - [facility] Total proteinOrdered By: Estrella Levy on 03-09-2025 Protein [Mass/Vol] 6.9 g/dL 5.9-8.4 [facility] Urinalysis, Completeon 03-09 BACTERIA 1+ /hpf Normal None Seen [facility] Comment on above: Order Comment: CLEAN CATCH Performed By: #### L 400.0001 ####[facility] [address] [place], [place], [id number] EPI,SQUAMOUS 0-5 SEEN Normal 5- [facility] Comment on above: Order Comment: CLEAN CATCH Performed By: #### L 400.0001 ####[facility] [address] [place], [place], [id number] Mucus Ql (Urine sed) 0 SEEN Normal [facility] Comment on above: Order Comment: CLEAN CATCH Performed By: #### L 400.0001 ####[facility] [address] [place], [address] RBC 0 SEEN Normal 0-5 [facility] Comment on above: Order Comment: CLEAN CATCH Performed By: #### L 400.0001 ####[facility] [address] [place], [address] WBC 0 SEEN Normal 0-5 [facility] Comment on above: Order Comment: CLEAN CATCH Performed By: #### L 400.0001 ####[facility] [address] [place], [place], [id number] Urine blood detectionOrdered By: Deuce Levy on 03-09-2025 Urine Occult Blood Negative Negative [facility] Urine clarityOrdered By: Estrella Levy on 03-09-2025 Clarity (U) Clear Clear [facility] Urine color determinationOrd ered By: Deuce Levy on 03-09-2025 Color (U) Yellow Yellow [facility] Urine glucose detectionOrder ed By: Deuce Levy on 03-09-2025 Glucose Ql (U) Normal mg/dl Normal [facility] Urine leukocyte esterase det ection by dipstickOrdered By: Deuce Levy on 03-09-2025 Leukocyte esterase Test strip Ql (U) Negative Negative [facility] Urine pHOrdered By: Deuce hernandez on 03-09-2025 pH (U) 6.5 [pH] 5.0 - 8.0 [facility] Urine sediment bacteria coun t by microscopy (number/high power field)Ordered By: Deuce Levy on 03-09-2025 Bacteria LM.HPF (Urine sed) [#/Area] 1 /[HPF] None Seen [facility] Urine specific gravity measu rementOrdered By: Deuce Levy on 03-09-2025 Specific gravity (U) [Rel density] 1.015 1.002-1.030 [facility] Urine urobilinogen measureme ntOrdered By: Deuce Levy on 03-09-2025 Urobilinogen Ql (U) Normal mg/dl Normal [facility] Urobilinogen Ql (U)Ordered B y: Deuce Levy on 03-09-2025 Urine Urobilinogen Normal mg/dl Normal [facility] White blood cell (WBC) count Ordered By: Deuce Levy on 03-09-2025 WBC (Bld) [#/Vol] 10.1 10*3/uL 4.4-11.0 [facility] White blood cell countOrdere d By: Deuce Cam on 03-09-2025 Urine WBC 0 SEEN /hpf 0-5 [facility] White blood cell count 0 SEEN /hpf 0-5 [facility] .Auto Diffon 01-22-2025 Basophil, Absolute 0.0 10 3/mcL Normal 0.0-0.2 [facility] Comment on above: Performed By: #### C BC, ADIFF, GFR, ANEU, BMP, TESSIE #### [address] [address] Basophils/100 WBC (Bld) 0.4 % Normal 0.0-2.5 [facility] Comment on above: Performed By: #### C BC, ADIFF, GFR, ANEU, BMP, TESSIE #### [address] [address] Eosinophil, Absolute 0.1 10 3/mcL Normal 0.0-0.7 [facility] Comment on above: Performed By: #### C BC, ADIFF, GFR, ANEU, BMP, TESSIE #### [address] [address] Eosinophils/100 WBC (Bld) 1.2 % Normal 0.0-7.0 [facility] Comment on above: Performed By: #### C BC, ADIFF, GFR, ANEU, BMP, TESSIE #### [address] [address] Lymphocyte, Absolute 3.8 10 3/mcL Normal 0.9-4.3 [facility] Comment on above: Performed By: #### C BC, ADIFF, GFR, ANEU, BMP, TESSIE #### [address] [address] Lymphocytes/100 WBC (Bld) 35.7 % Normal 20.0-40.0 [facility] Comment on above: Performed By: #### C BC, ADIFF, GFR, ANEU, BMP, MDW #### [address] [address] Monocyte, Absolute 0.5 10 3/mcL Normal 0.1-1.4 [facility] Comment on above: Performed By: #### C BC, ADIFF, GFR, ANEU, BMP, MDW #### [address] [address] Monocytes/100 WBC (Bld) 5.2 % Normal 2.0-13.0 [facility] Comment on above: Performed By: #### C BC, ADIFF, GFR, ANEU, BMP, MDW #### [address] [address] Neutrophils/100 WBC (Bld) 57.5 % Normal 50.0-75.0 [facility] Comment on above: Performed By: #### C BC, ADIFF, GFR, ANEU, BMP, MDW #### [address] [address] .GFRon 01-22-2025 Estimated Glomerular Filtration Rate 90 ml/min/1.73sqm Normal [facility] Comment on above: Result Comment: Stages of Chronic Kidney Disease (CKD) Stage Description eGFR(ml/min/1.73 sq.m.) CKD 1 Normal kidney function or >=90 normal kindney function with possible kidney damage (ex. Proteinuria) CKD 2 Kidney damage with mild loss 60-89 of kidney function CKD 3a Mild to moderate loss of kidney 45-59 function CKD 3b Moderate to severe loss of 30-44 of kindey function CKD 4 Severe loss of kidney function 15-29 CKD 5 Kidney failure <15 Note: (go live 2024) the eGFR calculation was updated to the 2020 CKD-EPI creatinine equation without a race factor to calculate the eGFR results. Performed By: #### C BC, ADIFF, GFR, ANEU, BMP, MDW #### [address] [address] .MDWon 01-22-2025 Monocyte Distribution Width 15.91 Normal 0.00-20.00 [facility] Comment on above: Result Comment: For ED adult patients suspected of sepsis, MDW<=20.0 does not rule out sepsis or risk of sepsis Performed By: #### C BC, ADIFF, GFR, ANEU, TESSIE ANDRES #### [place] [address] .NEUABSon 01-22-2025 Neutrophil, Absolute 6.1 10 3/mcL Normal 2.3-8.1 [facility] Comment on above: Performed By: #### C BC, ADIFF, GFR, MCKENNA ROSS MDW #### [place] [address] .Urinalysis Microscopic (AO) on 01-22-2025 UA RBC LOADED Abnormal None Seen [facility] Comment on above: Performed By: #### P REGU, UAMICAO, UA #### [place] [address] UA Squam Epithelial 0-5 Abnormal None Seen [facility] Comment on above: Performed By: #### P REGU, UAMICAO, UA #### [place] [address] UA WBC 0-5 Abnormal None Seen [facility] Comment on above: Performed By: #### P REGU, UAMICAO, UA #### [place] [address] BMPon 01-22-2025 BUN/Creatinine Ratio 16 ratio Normal 7-27 [facility] Comment on above: Performed By: #### C BC, ADIFF, GFR, ANEUMCKENNA MDW #### [place] [address] Calcium [Mass/Vol] 9.3 mg/dL Normal 8.4-10.2 [facility] Comment on above: Performed By: #### C BC, ADIFF, GFR, MCKENNA ROSS MDW #### [address] [address] Chloride [Moles/Vol] 105 mmol/L Normal 98-107 [facility] Comment on above: Performed By: #### C BC, ADIFF, GFR, ANEU, BMP, TESSIE #### [address] [address] CO2 [Moles/Vol] 27 mmol/L Normal 22-29 [facility] Comment on above: Performed By: #### C BC, ADIFF, GFR, ANEU, BMP, TESSIE #### [address] [address] Creatinine [Mass/Vol] 0.92 mg/dL Normal 0.55-1.02 [facility] Comment on above: Result Comment: Test ing performed on Siemens Dimension EXL analyzer using a modified kinetic Shine technique. Performed By: #### C BC, ADIFF, GFR, ANEU, BMPTESSIE #### [address] [address] Electrolyte Balance 7.0 mEq/L Normal 4.0-15.0 [facility] Comment on above: Performed By: #### C BC, ADIFF, GFR, ANEU, BMPTESSIE #### [address] [address] Glucose [Mass/Vol] 98 mg/dL Normal 70-105 [facility] Comment on above: Performed By: #### C BC, ADIFF, GFR, ANEU, BMPTESSIE #### [address] [address] Potassium [Moles/Vol] 3.6 mmol/L Normal 3.5-5.1 [facility] Comment on above: Performed By: #### C BC, ADIFF, GFR, ANEU, BMP, TESSIE #### [address] [address] Sodium [Moles/Vol] 139 mmol/L Normal 136-145 [facility] Comment on above: Performed By: #### C BC, ADIFF, GFR, ANEU, BMP, W #### [place] [address] Urea nitrogen [Mass/Vol] 15 mg/dL Normal 7-18 [facility] Comment on above: Performed By: #### C BC, ADIFF, GFR, ANEU, BMP, MDW #### [place] [address] CBCon 01-22-2025 Erythrocyte distribution width (RBC) [Ratio] 13.3 % Normal 11.5-15.5 [facility] Comment on above: Performed By: #### C BC, ADIFF, GFR, ANEU, BMP, W #### [place] [address] Hematocrit (Bld) [Volume fraction] 42.1 % Normal 34.0-46.0 [facility] Comment on above: Performed By: #### C BC, ADIFF, GFR, ANEU, BMP, W #### [place] [address] Hgb 14.5 G/dL Normal 12.0-16.0 [facility] Comment on above: Performed By: #### C BC, ADIFF, GFR, ANEU, BMP, W #### [place] [id number] MCH (RBC) [Entitic mass] 31.4 pg Normal 27.0-33.0 [facility] Comment on above: Performed By: #### C BC, ADIFF, GFR, ANEU, BMP, MDW #### [place] [address] MCHC 34.4 G/dL Normal 32.0-36.0 [facility] Comment on above: Performed By: #### C BC, ADIFF, GFR, ANEU, BMP, MDW #### [place] [address] MCV (RBC) [Entitic vol] 91.5 fL Normal 80.0-99.0 [facility] Comment on above: Performed By: #### C BC, ADIFF, GFR, ANEU, BMP, TESSIE #### [address] [address] Platelet 290 10 3/mcL Normal 150-450 [facility] Comment on above: Performed By: #### C BC, ADIFF, GFR, ANEU, BMP, TESSIE #### [place] [address] [place], [place] [address] Platelet mean volume (Bld) [Entitic vol] 9.7 fL Normal 6.6-10.5 [facility] Comment on above: Performed By: #### C BC, ADIFF, GFR, ANEU, BMP, TESSIE #### [address] [address] RBC 4.60 10 6/mcL Normal 4.10-5.30 [facility] Comment on above: Performed By: #### C BC, ADIFF, GFR, ANEU, BMP, TESSIE #### [address] [address] WBC 10.6 10 3/mcL Normal 4.5-10.8 [facility] Comment on above: Performed By: #### C BC, ADIFF, GFR, ANEU, MCKENNA, TESSIE #### [address] [address] LABORATORYOrdered By: Lon Mathews on 01-22-2025 Appearance (U) Cloudy *ABN* (01/22/25 3:26 PM) Invalid Interpretation Code Clear AO Auto Urine SS Bilirubin Ql (U) Small 3 *ABN* (01/22/25 3:26 PM) Invalid Interpretation Code Negative AO Auto Urine SS Comment on above: Result Comment: Sugg est correlation with serum bilirubin and clinical findings if medically necessary. Color (U) Brown *ABN* (01/22/25 3:26 PM) Invalid Interpretation Code AO Auto Urine SS Glucose Test strip (U) [Mass/Vol] Negative Normal Negative AO Auto Urine SS HCG ( test) Ql Negative (01/22/25 3:26 PM) Normal AO Manual Urine SS Hemoglobin Auto test strip (U) [Mass/Vol] Large *ABN* (01/22/25 3:26 PM) Invalid Interpretation Code Negative AO Auto Urine SS Ketones Ql (U) Trace mg/dL Invalid Interpretation Code Negative AO Auto Urine SS test (u) int Not detected Invalid Interpretation Code AO Manual Urine SS UA Leuk Est Negative (01/22/25 3:26 PM) Normal Negative AO Auto Urine SS UA Nitrite Negative (01/22/25 3:26 PM) Normal Negative AO Auto Urine SS UA pH 5.5 (01/22/25 3:26 PM) Normal 5.0 - 8.0 AO Auto Urine SS UA Protein 100 mg/dL Invalid Interpretation Code Negative AO Auto Urine SS UA RBC LOADED /HPF Invalid Interpretation Code None Seen AO Auto Urine SS UA Spec Grav >=1.030 *ABN* (01/22/25 3:26 PM) Invalid Interpretation Code 1.015-1.025 AO Auto Urine SS UA Specimen Type Clean Catch (01/22/25 3:26 PM) Normal AO Auto Urine SS UA Squam Epithelial 0-5 /HPF Invalid Interpretation Code None Seen AO Auto Urine SS UA Urobilinogen 0.2 E.U./dL Normal 0.2-1.0 AO Auto Urine SS WBC LM.HPF (Urine sed) [#/Area] 0-5 /HPF Invalid Interpretation Code None Seen AO Auto Urine SS LABORATORYOrdered By: SYSTEM SYSTEM on 01-22-2025 Basophils (Bld) [#/Vol] 0.0 103/mcL Normal 0.0 - 0.2 10^3/mcL AO Workflow SS Basophils/100 WBC (Bld) 0.4 % Normal 0.0 - 2.5 % AO Workflow SS Calcium [Mass/Vol] 9.3 mg/dL Normal 8.4 - 10. 2 mg/dL AO ADM SS Chloride [Moles/Vol] 105 mmol/L Normal 98 - 10 7 mmol/L AO ADM SS CO2 [Moles/Vol] 27 mmol/L Normal 22 - 29 mmol/L AO ADM SS Creatinine [Mass/Vol] 0.92 mg/dL Normal 0.55 - 1.02 mg/dL AO ADM SS Comment on above: Interpretive Data: T esting performed on Siemens Dimension EXL analyzer using a modified kinetic Shine technique. Electrolyte Balance 7.0 mEq/L Normal 4.0 - 15 .0 mEq/L AO ADM SS Eosinophil, Absolute 0.1 103/mcL Normal 0.0 - 0 .7 10^3/mcL AO Workflow SS Eosinophils/100 WBC (Bld) 1.2 % Normal 0.0 - 7.0 % AO Workflow SS Erythrocyte distribution width (RBC) [Ratio] 13.3 % Normal 11.5 - 15.5 % AO Workflow SS Estimated Glomerular Filtration Rate 90 ml/min/1.73sqm Invalid Interpretation Code AO Chemistry S Comment on above: Interpretive Data: Stages of Chronic Kidney Disease (CKD) Stage Description eGFR(ml/min/1.73 sq.m.) CKD 1 Normal kidney function or >=90 normal kindney function with possible kidney damage (ex. Proteinuria) CKD 2 Kidney damage with mild loss 60-89 of kidney function CKD 3a Mild to moderate loss of kidney 45-59 function CKD 3b Moderate to severe loss of 30-44 of kindey function CKD 4 Severe loss of kidney function 15-29 CKD 5 Kidney failure <15 Note: (go live 2024) the eGFR calculation was updated to the 2020 CKD-EPI creatinine equation without a race factor to calculate the eGFR results. Glucose [Mass/Vol] 98 mg/dL Normal 70 - 105 mg/dL AO ADM SS Hematocrit (Bld) [Volume fraction] 42.1 % Normal 34.0 - 46.0 % AO Workflow SS Hemoglobin (Bld) [Mass/Vol] 14.5 G/dL Normal 12.0 - 16.0 G/dL AO Workflow SS Lymphocytes (Bld) [#/Vol] 3.8 103/mcL Normal 0.9 - 4.3 10^3/mcL AO Workflow SS Lymphocytes/100 WBC (Bld) 35.7 % Normal 20.0 - 40.0 % AO Workflow SS MCH (RBC) [Entitic mass] 31.4 pg Normal 27.0 - 33.0 pg AO Workflow SS MCHC 34.4 G/dL Normal 32.0 - 36.0 G/dL AO Workflow SS MCV (RBC) [Entitic vol] 91.5 fL Normal 80.0 - 99.0 fL AO Workflow SS Monocyte distribution width Auto (Bld) [Entitic vol] 15.91 1 Normal 0.00 - 20.00 AO Workflow SS Comment on above: Result Comment: For ED adult patients suspected of sepsis, MDW<=20.0 does not rule out sepsis or risk of sepsis Monocytes (Bld) [#/Vol] 0.5 103/mcL Normal 0.1 - 1.4 10^3/mcL AO Workflow SS Monocytes/100 WBC (Bld) 5.2 % Normal 2.0 - 13.0 % AO Workflow SS Neutrophils (Bld) [#/Vol] 6.1 103/mcL Normal 2.3 - 8.1 10^3/mcL AO Workflow SS Neutrophils/100 WBC (Bld) 57.5 % Normal 50.0 - 75.0 % AO Workflow SS Platelet mean volume (Bld) [Entitic vol] 9.7 fL Normal 6.6 - 10.5 fL AO Workflow SS Platelets (Bld) [#/Vol] 290 103/mcL Normal 150 - 450 10^3/mcL AO Workflow SS Potassium [Moles/Vol] 3.6 mmol/L Normal 3.5 - 5.1 mmol/L AO ADM SS RBC (Bld) [#/Vol] 4.60 106/mcL Normal 4.10 - 5.3 0 10^6/mcL AO Workflow SS Sodium [Moles/Vol] 139 mmol/L Normal 136 - 145 mmol/L AO ADM SS Urea nitrogen [Mass/Vol] 15 mg/dL Normal 7 - 18 mg/dL AO ADM SS Urea nitrogen/Creatinine [Mass ratio] 16 ratio Normal 7 - 27 ratio AO ADM SS WBC (Bld) [#/Vol] 10.6 103/mcL Normal 4.5 - 10.8 10^3/mcL AO Workflow SS PREGUon 01-22-2025 HCG ( test) Ql (U) Negative Normal [facility] Comment on above: Performed By: #### P REGU, UAMICAO, UA #### [address] [address] test (u) int Not detected Invalid Interpretation Code [facility] Comment on above: Performed By: #### P REGU, UAMICAO, UA #### [address] [address] UAon 01-22-2025 Color (U) Brown Abnormal [facility] Comment on above: Performed By: #### P REGU, UAMICAO, UA #### [address] [address] Glucose (U) [Mass/Vol] Negative Normal Negative [facility] Comment on above: Performed By: #### P REGU, UAMICAO, UA #### [place] [address] Ketones Ql (U) Trace Abnormal Negative [facility] Comment on above: Performed By: #### P REGU, UAMICAO, UA #### [place] [address] UA Appear Cloudy Abnormal Clear [facility] Comment on above: Performed By: #### P REGU, UAMICAO, UA #### [place] [address] UA Bili Small Abnormal Negative [facility] Comment on above: Result Comment: Sugg est correlation with serum bilirubin and clinical findings if medically necessary. Performed By: #### P REGU, UAMICAO, UA #### [place] [address] UA Blood Large Abnormal Negative [facility] Comment on above: Performed By: #### P REGU, UAMICAO, UA #### [place] [address] UA Leuk Est Negative Normal Negative [facility] Comment on above: Performed By: #### P REGU, UAMICAO, UA #### [place] [address] UA Nitrite Negative Normal Negative [facility] Comment on above: Performed By: #### P REGU, UAMICAO, UA #### [place] [address] UA pH 5.5 Normal 5.0 - 8.0 [facility] Comment on above: Performed By: #### P REGU, UAMICAO, UA #### [place] [address] UA Protein 100 mg/dL Abnormal Negative [facility] Comment on above: Performed By: #### P REGU, UAMICAO, UA #### [place] [address] UA Spec Grav >=1.030 Abnormal 1.015-1.025 [facility] Comment on above: Performed By: #### P REGU, UAMICAO, UA #### [place] [address] [place], [place] [address] UA Specimen Type Clean Catch Normal [facility] Comment on above: Performed By: #### P REGU, UAMICAO, UA #### [place] [address] [place], [place] [address] UA Urobilinogen 0.2 E.U./dL Normal 0.2-1.0 [facility] Comment on above: Performed By: #### P REGU, UAMICAO, UA #### [address] [address] US PELVIS NON-OB COMPLETEon 01-22-2025 US PELVIS NON-OB COMPLETE ORIGINAL EXAMINATION: PELVIC ULTRASOUND 01/22/2025 TECHNIQUE: Transabdominal pelvic ultrasound was performed at the bedside. Study technically limited by body habitus. COMPARISON: None HISTORY: ORDERING SYSTEM PROVIDED HISTORY: Reason for Exam: pelvic pain All images are recorded and archived. FINDINGS: Measurements: Uterus: 8.6 x 3.8 x 5.1 cm Endometrial stripe: 7 mm Right Ovary:3.8 x 2.1 x 2.6 cm Left Ovary: 3.0 x 2.4 x 2.0 cm Ultrasound Findings: Uterus: Uterus demonstrates normal myometrial echotexture. Endometrial stripe: Endometrial stripe is within normal limits. No abnormal hyperemia associated with the endometrium. Right Ovary: Right ovary is within normal limits. There is normal arterial and venous Doppler flow. Left Ovary: Left ovary is within normal limits. There is normal arterial and venous Doppler flow. Free Fluid: No evidence of free fluid. IMPRESSION: Unremarkable pelvic ultrasound. Interpreted by: Man Garcia DO Preliminary Report By: Man Garcia DO Electronically signed By Man Garcia DO Dictated Date: 01/22/2025 3:49:59 PM Prelim Date: 01/22/2025 3:52:43 PM Sign Date: 01/22/2025 3:52:43 PM Ordering Provider: JENNIFER Greenberg [facility] XR CHEST 2 VIEWSon XR CHEST 2 VIEWS ORIGINAL EXAMINATION: TWO XRAY VIEWS OF THE CHEST10/05/2024 4:11 pm COMPARISON: Chest radiograph 10/04/2024 HISTORY: ORDERING SYSTEM PROVIDED HISTORY: Reason for Exam: chest pain FINDINGS: The cardiomediastinal silhouette is stable. There is no pulmonary vascular congestion. Hypoventilatory changes. No large focal consolidative opacity. No pleural effusion. No pneumothorax. IMPRESSION: Low lung volumes and hypoventilatory changes. No definite focal consolidation. I have personally reviewed the images of this examination and agree with the resident's findings and interpretation. Interpreted by: Marcos Gonzalez Preliminary Report By: Elvira Bethea Electronically signed By Marcos Gonzalez Dictated Date: 10/05/2024 4:16:38 PM Prelim Date: 10/05/2024 4:18:14 PM Sign Date: 10/05/2024 4:20:37 PM Ordering Provider: VERNON BRIONES [facility] XR RIBS 2 VIEWS LEFT/PA CHES T(AO)on 10-04-2024 XR RIBS 2 VIEWS LEFT/PA CHEST(AO) ORIGINAL EXAMINATION: XRAY VIEWS OF LEFT RIBS WITH 2 XRAY VIEWS OF THE CHEST 10/04/2024 10:49 pm COMPARISON: None. HISTORY: ORDERING SYSTEM PROVIDED HISTORY: Reason for Exam: pushed into a wall at work and is having left rib pain. left anterolateral rib pain FINDINGS: No evidence of acute fracture of the ribs. No focal rib abnormality. No evidence of acute focal process in the lungs. No evidence of consolidation or pulmonary edema. No pleural effusion or pneumothorax. Cardiomediastinal silhouette demonstrates no acute abnormality. IMPRESSION: No acute abnormality of the ribs. No acute process in the lungs. Interpreted by: Shaji Martinez Preliminary Report By: Shaji Martinez Electronically signed By Shaji Martinez Dictated Date: 10/04/2024 10:53:58 PM Prelim Date: 10/04/2024 10:57:57 PM Sign Date: 10/04/2024 10:57:57 PM Ordering Provider: BLAINE WHITLEY [facility] .Auto Diffon 07-04-2024 Basophil, Absolute 0.0 10 3/mcL Normal 0.0-0.2 [facility] ([place]) Comment on above: Performed By: #### L IP, CMP, CBC, GFR, ANEU, MDW, ADIFF #### [address] [address] Basophils/100 WBC (Bld) 0.5 % Normal 0.0-2.5 [facility] ([place]) Comment on above: Performed By: #### L IP, CMP, CBC, GFR, ANEU, MDW, ADIFF #### [address] [address] Eosinophil, Absolute 0.1 10 3/mcL Normal 0.0-0.4 [facility] ([place]) Comment on above: Performed By: #### L IP, CMP, CBC, GFR, ANEU, MDW, ADIFF #### [address] [address] Eosinophils/100 WBC (Bld) 1.2 % Normal 0.0-7.0 [facility] ([place]) Comment on above: Performed By: #### L IP, CMP, CBC, GFR, ANEU, MDW, ADIFF #### [address] [address] Lymphocyte, Absolute 2.2 10 3/mcL Normal 0.8-3.9 [facility] ([place]) Comment on above: Performed By: #### L IP, CMP, CBC, GFR, ANEU, MDW, ADIFF #### [address] [address] Lymphocytes/100 WBC (Bld) 32.1 % Normal 10.0-50.0 [facility] ([place]) Comment on above: Performed By: #### L IP, CMP, CBC, GFR, ANEU, MDW, ADIFF #### [address] [address] Monocyte, Absolute 0.4 10 3/mcL Normal 0.2-1.0 [facility] ([place]) Comment on above: Performed By: #### L IP, CMP, CBC, GFR, ANEU, MDW, ADIFF #### [address] [address] Monocytes/100 WBC (Bld) 6.1 % Normal 1.7-13.0 [facility] ([place]) Comment on above: Performed By: #### L IP, CMP, CBC, GFR, TESSIE ROSS, ADIFF #### [address] [address] Neutrophils/100 WBC (Bld) 60.1 % Normal 37.0-80.0 [facility] ([place]) Comment on above: Performed By: #### L IP, CMP, CBC, GFR, MD VANDANAW, ADIFF #### [place] [address] [place], [place] [address] .GFRon 07-04-2024 GFR Non- 70 ml/min/1.73sqm Normal [facility] ([place]) Comment on above: Result Comment: GFR Population mean for , Non- Americans Ages 20-29 = 116 mL/min/1.73 sq.m. Ages 30-39 = 107 mL/min/1.73 sq.m. Ages 40-49 = 99 mL/min/1.73 sq.m. Ages 50-59 = 93 mL/min/1.73 sq.m. Ages 60-69 = 85 mL/min/1.73 sq.m. Ages 70+ = 75 mL/min/1.73 sq.m. Chronic Kidney Disease: Less than 60 mL/min/1.73 square meters End Stage Renal Disease: Less than 15 mL/min/1.73 square meters Performed By: #### G FR, ADIFF, BMP, ANEU, CBC #### [address] [address] GFR 85 ml/min/1.73sqm Normal [facility] ([place]) Comment on above: Result Comment: GFR Population mean for , Non- Americans Ages 20-29 = 116 mL/min/1.73 sq.m. Ages 30-39 = 107 mL/min/1.73 sq.m. Ages 40-49 = 99 mL/min/1.73 sq.m. Ages 50-59 = 93 mL/min/1.73 sq.m. Ages 60-69 = 85 mL/min/1.73 sq.m. Ages 70+ = 75 mL/min/1.73 sq.m. Chronic Kidney Disease: Less than 60 mL/min/1.73 square meters End Stage Renal Disease: Less than 15 mL/min/1.73 square meters Performed By: #### G FR, ADIFF, BMP, ANEU, CBC #### [address] [address] .MDWon 07-04-2024 Monocyte Distribution Width 16.32 Normal 0.00-20.00 [facility] ([place]) Comment on above: Result Comment: For ED adult patients suspected of sepsis, MDW<=20.0 does not rule out sepsis or risk of sepsis Performed By: #### L IP, CMP, CBC, GFR, ANEU, MDW, ADIFF #### [address] [address] .NEUABSon 07-04-2024 Neutrophil, Absolute 4.1 10 3/mcL Normal 2.9-6.2 [facility] ([place]) Comment on above: Performed By: #### L IP, CMP, CBC, GFR, ANEU, MDW, ADIFF #### [address] [address] .Urinalysis Microscopic (AO) on 07-04-2024 UA Bacteria Trace Abnormal [facility] ([place]) Comment on above: Performed By: #### G FR, ADIFF, BMP, ANEU, CBC #### [address] [address] UA RBC None Seen Normal None Seen [facility] ([place]) Comment on above: Performed By: #### G FR, ADIFF, BMP, ANEU, CBC #### [address] [address] UA Squam Epithelial 0-5 Abnormal None Seen [facility] ([place]) Comment on above: Performed By: #### G FR, ADIFF, BMP, ANEU, CBC #### [address] [address] UA WBC 0-5 Abnormal None Seen [facility] ([place]) Comment on above: Performed By: #### G FR, ADIFF, BMP, ANEU, CBC #### [address] [address] CBCon 07-04-2024 Erythrocyte distribution width (RBC) [Ratio] 13.6 % Normal 11.5-14.5 [facility] ([place]) Comment on above: Performed By: #### L IP, CMP, CBC, GFR, ANEU, MDW, ADIFF #### [address] [address] Hematocrit (Bld) [Volume fraction] 40.1 % Normal 37.0-47.0 [facility] ([place]) Comment on above: Performed By: #### L IP, CMP, CBC, GFR, ANEU, MDW, ADIFF #### [address] [address] Hgb 13.3 G/dL Normal 12.0-16.0 [facility] ([place]) Comment on above: Performed By: #### L IP, CMP, CBC, GFR, ANEU, MDW, ADIFF #### [address] [address] MCH (RBC) [Entitic mass] 30.9 pg Normal 27.0-31.2 [facility] ([place]) Comment on above: Performed By: #### L IP, CMP, CBC, GFR, ANEU, MDW, ADIFF #### [address] [address] MCHC 33.2 G/dL Normal 33.0-37.0 [facility] ([place]) Comment on above: Performed By: #### L IP, CMP, CBC, GFR, ANEU, MDW, ADIFF #### [address] [address] MCV (RBC) [Entitic vol] 93.0 fL Normal 80.0-94.0 [facility] ([place]) Comment on above: Performed By: #### L IP, CMP, CBC, GFR, ANEU, MDW, ADIFF #### [address] [address] Platelet 261 10 3/mcL Normal 130-400 [facility] ([place]) Comment on above: Performed By: #### L IP, CMP, CBC, GFR, ANEU, MDW, ADIFF #### [address] [address] Platelet mean volume (Bld) [Entitic vol] 9.4 fL Normal 7.4-10.4 [facility] ([place]) Comment on above: Performed By: #### L IP, CMP, CBC, GFR, ANEU, MDW, ADIFF #### [address] [address] RBC 4.31 10 6/mcL Normal 4.20-5.40 [facility] ([place]) Comment on above: Performed By: #### L IP, CMP, CBC, GFR, ANEU, MDW, ADIFF #### [address] [address] WBC 6.8 10 3/mcL Normal 4.6-10.8 [facility] ([place]) Comment on above: Performed By: #### L IP, CMP, CBC, GFR, ANEU, MDW, ADIFF #### [address] [address] CMPon 07-04-2024 Albumin Level 3.3 G/dL Low 3.5-5.0 [facility] ([place]) Comment on above: Performed By: #### G FR, ADIFF, BMP, ANEU, CBC #### [address] [address] Albumin/Globulin [Mass ratio] 0.9 {ratio} Low 1.1-2.5 [facility] ([place]) Comment on above: Performed By: #### G FR, ADIFF, BMP, ANEU, CBC #### [address] [address] ALP [Catalytic activity/Vol] 133 U/L Normal 40-135 [facility] ([place]) Comment on above: Performed By: #### G FR, ADIFF, BMP, ANEU, CBC #### [address] [address] ALT [Catalytic activity/Vol] 531 U/L High 14-59 [facility] ([place]) Comment on above: Performed By: #### G FR, ADIFF, BMP, ANEU, CBC #### [address] [address] AST [Catalytic activity/Vol] 380 U/L High 10-40 [facility] ([place]) Comment on above: Performed By: #### G FR, ADIFF, BMP, ANEU, CBC #### [address] [address] Bili Total 1.9 mg/dL High 0.2-1.0 [facility] ([place]) Comment on above: Result Comment: Use of this assay is not recommended for patients undergoing treatment with eltrombopag due to the potential for falsely elevated results. Performed By: #### G FR, ADIFF, BMP, ANEU, CBC #### [address] [address] BUN/Creatinine Ratio 6 ratio Low 7-27 [facility] ([place]) Comment on above: Performed By: #### Meg FR, ADIFF, BMP, ANEU, CBC #### [address] [address] Calcium [Mass/Vol] 8.8 mg/dL Normal 8.4-10.2 [facility] ([place]) Comment on above: Performed By: #### Meg FR, ADIFF, BMP, ANEU, CBC #### [address] [address] Chloride [Moles/Vol] 107 mmol/L Normal 98-107 [facility] ([place]) Comment on above: Performed By: #### G FR, ADIFF, BMP, ANEU, CBC #### [address] [address] CO2 [Moles/Vol] 24 mmol/L Normal 22-29 [facility] ([place]) Comment on above: Performed By: #### G FR, ADIFF, BMP, ANEU, CBC #### [address] [address] Creatinine [Mass/Vol] 1.00 mg/dL Normal 0.55-1.02 [facility] ([place]) Comment on above: Performed By: #### G FR, ADIFF, BMP, ANEU, CBC #### [address] [address] Electrolyte Balance 10.0 mEq/L Normal 4.0-15.0 [facility] ([place]) Comment on above: Performed By: #### G FR, ADIFF, BMP, ANEU, CBC #### [address] [address] Globulin 3.7 G/dL Normal [facility] ([place]) Comment on above: Performed By: #### G FR, ADIFF, BMP, ANEU, CBC #### [address] [address] Glucose [Mass/Vol] 147 mg/dL High 70-105 [facility] ([place]) Comment on above: Performed By: #### G FR, ADIFF, BMP, ANEU, CBC #### [address] [address] Potassium [Moles/Vol] 3.6 mmol/L Normal 3.5-5.1 [facility] ([place]) Comment on above: Performed By: #### G FR, ADIFF, BMP, ANEU, CBC #### [address] [address] Sodium [Moles/Vol] 141 mmol/L Normal 136-145 [facility] ([place]) Comment on above: Performed By: #### G FR, ADIFF, BMP, ANEU, CBC #### [address] [address] Total Protein 7.0 G/dL Normal 6.4-8.2 [facility] ([place]) Comment on above: Performed By: #### G FR, ADIFF, BMP, ANEU, CBC #### [address] [address] Urea nitrogen [Mass/Vol] 6 mg/dL Low 7-18 [facility] ([place]) Comment on above: Performed By: #### G FR, ADIFF, BMP, ANEU, CBC #### [address] [address] LABORATORYOrdered By: Heide Au on 07-04-2024 Appearance (U) Clear (07/04/24 3:47 AM) Normal Clear AO Auto Urine SS Bacteria LM.HPF (Urine sed) [#/Area] Trace /HPF Invalid Interpretation Code AO Auto Urine SS Bilirubin Ql (U) Small *ABN* (07/04/24 3:47 AM) Invalid Interpretation Code Negative AO Auto Urine SS Color (U) Yellow (07/04/24 3:47 AM) Normal AO Auto Urine SS Glucose Test strip (U) [Mass/Vol] Negative Normal Negative AO Auto Urine SS HCG ( test) Ql Negative (07/04/24 3:47 AM) Normal AO Manual Urine SS Hemoglobin Auto test strip (U) [Mass/Vol] Negative (07/04/24 3:47 AM) Normal Negative AO Auto Urine SS Ketones Ql (U) Negative Normal Negative AO Auto Urine SS test (u) int Not detected Invalid Interpretation Code AO Manual Urine SS UA Leuk Est Trace *ABN* (07/04/24 3:47 AM) Invalid Interpretation Code Negative AO Auto Urine SS UA Nitrite Negative (07/04/24 3:47 AM) Normal Negative AO Auto Urine SS UA pH 5.5 (07/04/24 3:47 AM) Normal 5.0 - 8.0 AO Auto Urine SS UA Protein Negative Normal Negative AO Auto Urine SS UA RBC None Seen /HPF Normal None Seen AO Auto Urine SS UA Spec Grav 1.020 (07/04/24 3:47 AM) Normal 1.015-1.025 AO Auto Urine SS UA Specimen Type Void (07/04/24 3:47 AM) Normal AO Auto Urine SS UA Squam Epithelial 0-5 /HPF Invalid Interpretation Code None Seen AO Auto Urine SS UA Urobilinogen 0.2 E.U./dL Normal 0.2-1.0 AO Auto Urine SS WBC LM.HPF (Urine sed) [#/Area] 0-5 /HPF Invalid Interpretation Code None Seen AO Auto Urine SS LABORATORYOrdered By: SYSTEM SYSTEM on 07-04-2024 Albumin BCP dye [Mass/Vol] 3.3 G/dL Low 3.5 - 5.0 G/dL AO ADM SS Albumin/Globulin [Mass ratio] 0.9 {ratio} Low 1.1 - 2.5 ratio AO ADM SS ALP [Catalytic activity/Vol] 133 U/L Normal 40 - 135 U/L AO ADM SS ALT With P-5'-P [Catalytic activity/Vol] 531 U/L High 14 - 59 U/L AO ADM SS AST With P-5'-P [Catalytic activity/Vol] 380 U/L High 10 - 40 U/L AO ADM SS Basophil, Absolute 0.0 103/mcL Normal 0.0 - 0.2 10^3/mcL AO Workflow SS Basophils/100 WBC (Bld) 0.5 % Normal 0.0 - 2.5 % AO Workflow SS Bilirubin [Mass/Vol] 1.9 mg/dL High 0.2 - 1 .0 mg/dL AO ADM SS Comment on above: Interpretive Data: U se of this assay is not recommended for patients undergoing treatment with eltrombopag due to the potential for falsely elevated results. Calcium [Mass/Vol] 8.8 mg/dL Normal 8.4 - 10. 2 mg/dL AO ADM SS Chloride [Moles/Vol] 107 mmol/L Normal 98 - 10 7 mmol/L AO ADM SS CO2 [Moles/Vol] 24 mmol/L Normal 22 - 29 mmol/L AO ADM SS Creatinine [Mass/Vol] 1.00 mg/dL Normal 0.55 - 1.02 mg/dL AO ADM SS Electrolyte Balance 10.0 mEq/L Normal 4.0 - 15 .0 mEq/L AO ADM SS Eosinophil, Absolute 0.1 103/mcL Normal 0.0 - 0 .4 10^3/mcL AO Workflow SS Eosinophils/100 WBC (Bld) 1.2 % Normal 0.0 - 7.0 % AO Workflow SS Erythrocyte distribution width (RBC) [Ratio] 13.6 % Normal 11.5 - 14.5 % AO Workflow SS GFR/1.73 sq M.predicted among blacks MDRD (S/P/Bld) [Vol rate/Area] 85 ml/min/1.73sqm Invalid Interpretation Code AO Chemistry S Comment on above: Interpretive Data: GFR Population mean for , Non- Americans Ages 20-29 = 116 mL/min/1.73 sq.m. Ages 30-39 = 107 mL/min/1.73 sq.m. Ages 40-49 = 99 mL/min/1.73 sq.m. Ages 50-59 = 93 mL/min/1.73 sq.m. Ages 60-69 = 85 mL/min/1.73 sq.m. Ages 70+ = 75 mL/min/1.73 sq.m. Chronic Kidney Disease: Less than 60 mL/min/1.73 square meters End Stage Renal Disease: Less than 15 mL/min/1.73 square meters GFR/1.73 sq M.predicted among non-blacks MDRD (S/P/Bld) [Vol rate/Area] 70 ml/min/1.73sqm Invalid Interpretation Code AO Chemistry S Comment on above: Interpretive Data: GFR Population mean for , Non- Americans Ages 20-29 = 116 mL/min/1.73 sq.m. Ages 30-39 = 107 mL/min/1.73 sq.m. Ages 40-49 = 99 mL/min/1.73 sq.m. Ages 50-59 = 93 mL/min/1.73 sq.m. Ages 60-69 = 85 mL/min/1.73 sq.m. Ages 70+ = 75 mL/min/1.73 sq.m. Chronic Kidney Disease: Less than 60 mL/min/1.73 square meters End Stage Renal Disease: Less than 15 mL/min/1.73 square meters Globulin 3.7 G/dL Invalid Interpretation Code AO ADM SS Glucose [Mass/Vol] 147 mg/dL High 70 - 105 mg/dL AO ADM SS Hematocrit (Bld) [Volume fraction] 40.1 % Normal 37.0 - 47.0 % AO Workflow SS Hemoglobin (Bld) [Mass/Vol] 13.3 G/dL Normal 12.0 - 16.0 G/dL AO Workflow SS Lipase [Catalytic activity/Vol] 49 U/L Normal 16 - 77 U/L AO ADM SS Lymphocyte, Absolute 2.2 103/mcL Normal 0.8 - 3 .9 10^3/mcL AO Workflow SS Lymphocytes/100 WBC (Bld) 32.1 % Normal 10.0 - 50.0 % AO Workflow SS MCH (RBC) [Entitic mass] 30.9 pg Normal 27.0 - 31.2 pg AO Workflow SS MCHC 33.2 G/dL Normal 33.0 - 37.0 G/dL AO Workflow SS MCV (RBC) [Entitic vol] 93.0 fL Normal 80.0 - 94.0 fL AO Workflow SS Monocyte distribution width Auto (Bld) [Entitic vol] 16.32 1 Normal 0.00 - 20.00 AO Workflow SS Comment on above: Result Comment: For ED adult patients suspected of sepsis, MDW<=20.0 does not rule out sepsis or risk of sepsis Monocyte, Absolute 0.4 103/mcL Normal 0.2 - 1.0 10^3/mcL AO Workflow SS Monocytes/100 WBC (Bld) 6.1 % Normal 1.7 - 13.0 % AO Workflow SS Neutrophil, Absolute 4.1 103/mcL Normal 2.9 - 6 .2 10^3/mcL AO Workflow SS Neutrophils/100 WBC (Bld) 60.1 % Normal 37.0 - 80.0 % AO Workflow SS Platelet mean volume (Bld) [Entitic vol] 9.4 fL Normal 7.4 - 10.4 fL AO Workflow SS Platelets (Bld) [#/Vol] 261 103/mcL Normal 130 - 400 10^3/mcL AO Workflow SS Potassium [Moles/Vol] 3.6 mmol/L Normal 3.5 - 5.1 mmol/L AO ADM SS Protein [Mass/Vol] 7.0 G/dL Normal 6.4 - 8.2 G/dL AO ADM SS RBC (Bld) [#/Vol] 4.31 106/mcL Normal 4.20 - 5.4 0 10^6/mcL AO Workflow SS Sodium [Moles/Vol] 141 mmol/L Normal 136 - 145 mmol/L AO ADM SS Urea nitrogen [Mass/Vol] 6 mg/dL Low 7 - 18 mg/dL AO ADM SS Urea nitrogen/Creatinine [Mass ratio] 6 ratio Low 7 - 27 ratio AO ADM SS WBC (Bld) [#/Vol] 6.8 103/mcL Normal 4.6 - 10.8 10^3/mcL AO Workflow SS LIPon 07-04-2024 Lipase Level 49 U/L Normal 16-77 [facility] ([place]) Comment on above: Performed By: #### G FR, ADIFF, BMP, ANEU, CBC #### [address] [address] PREGUon 07-04-2024 HCG ( test) Ql (U) Negative Normal [facility] ([place]) Comment on above: Performed By: #### G FR, ADIFF, BMP, ANEU, CBC #### [address] [address] test (u) int Not detected Invalid Interpretation Code [facility] ([place]) Comment on above: Performed By: #### G FR, ADIFF, BMP, ANEU, CBC #### [place] [id number] UAon 07-04-2024 Color (U) Yellow Normal [facility] ([place]) Comment on above: Performed By: #### G FR, ADIFF, BMP, ANEU, CBC #### [place] [address] Glucose (U) [Mass/Vol] Negative Normal Negative [facility] ([place]) Comment on above: Performed By: #### G FR, ADIFF, BMP, ANEU, CBC #### [place] [address] Ketones Ql (U) Negative Normal Negative [facility] ([place] Comment on above: Performed By: #### G FR, ADIFF, BMP, ANEU, CBC #### [place] [address] UA Appear Clear Normal Clear [facility] ([place]) Comment on above: Performed By: #### G FR, ADIFF, BMP, ANEU, CBC #### [place] [address] UA Bili Small Abnormal Negative [facility] ([place]) Comment on above: Performed By: #### G FR, ADIFF, BMP, ANEU, CBC #### [place] [address] UA Blood Negative Normal Negative [facility] ([place] Comment on above: Performed By: #### G FR, ADIFF, BMP, ANEU, CBC #### [place] [address] UA Leuk Est Trace Abnormal Negative [facility] ([place]) Comment on above: Performed By: #### G FR, ADIFF, BMP, ANEU, CBC #### [place] [id number] UA Nitrite Negative Normal Negative [facility] ([place] Comment on above: Performed By: #### G FR, ADIFF, BMP, ANEU, CBC #### [place] [id number] UA pH 5.5 Normal 5.0 - 8.0 [facility] ([place] Comment on above: Performed By: #### G FR, ADIFF, BMP, ANEU, CBC #### [address] [address] UA Protein Negative Normal Negative [facility] ([place] Comment on above: Performed By: #### G FR, ADIFF, BMP, ANEU, CBC #### [place] [id number] [place] [address] UA Spec Grav 1.020 Normal 1.015-1.025 [facility] ([place]) Comment on above: Performed By: #### G FR, ADIFF, BMP, ANEU, CBC #### [address] [address] UA Specimen Type Void Normal [facility] ([place] Comment on above: Performed By: #### G FR, ADIFF, BMP, ANEU, CBC #### [address] [address] UA Urobilinogen 0.2 E.U./dL Normal 0.2-1.0 [facility] ([place]) Comment on above: Performed By: #### G FR, ADIFF, BMP, ANEU, CBC #### [address] [address] Emergency Department Summary on 07-03-2024 Emergency Department Summary [facility] Medical Records Department [address] [place] [id number] Emergency Department Summary 07/03/24 MR#: [id number] Acct: [id number] Name: GABRIELLE CARROLL Rep #: [id number] : 2000 23 From: Reese King DO PCP: Dr. Barry Reeves MD Status:DEP ER Location: ED HPI History of Present Illness Chief Complaint: Chest Other Informant: patient Narrative Narrative: Patient is a 23-year-old female with no significant past medical history. She states that today she noticed pain in the left rib/chest wall. She states that there was no direct trauma nor does she denies any recent coughing symptoms. She denies any family history of cardiac disease at a young age she denies any recent travel or surgery or history of DVT/PE and she denies any illicit drug use. 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 She states that she took Tylenol and Motrin but the pain persisted and she could not sleep and secondary to this she comes in for evaluation [facility] Medical History Enlarged liver Home Medications ???Medication ???Instructions ???Recorded ???Last Taken ???Type methocarbamol 500 mg tablet 1,000 mg (2 x 500 mg) PO 4X/DAY 07/03/24 Unknown Rx PRN Muscle pain/spasm #56 tabs Allergy/AdvReac Type Severity Reaction Status Date / Time sumatriptan (From Imitrex) Allergy Rash Verified 07/03/24 02:56 Family History Grandmother Cancer Hypertension Surgical History Hx of section Hx of dilation and curettage Hx of tonsillectomy [place] teeth removed Social History household members: friend(s) Smoking Status: Never smoker alcohol intake: never substance use type: marijuana ROS ROS ED Constitutional Constitutional ED: Denies chills or fever(s) Eyes Eyes: Denies blurry vision or change in vision ENT ENT ED: Denies sore throat Cardiovascular Cardiovascular: Reports chest pain; Denies palpitations or racing heartbeat Respiratory/Chest Respiratory/Chest: Denies cough or dyspnea Gastrointestinal Gastrointestinal: Denies abdominal pain, diarrhea, nausea or vomiting Genitourinary Genitourinary ED: Denies dysuria Musculoskeletal Musculoskeletal: Denies back pain Integumentary Denies Abrasions or rash Neurologic Neurologic: Denies headache(s) Hematologic/Lymphatic Hematologic/Lymphatic: Denies easy bleeding or easy bruising EXAM Physical Exam Const Vital Signs: 07/03/24 02:56 07/03/24 02:56 Temperature 97.7 F L Temperature Source Oral Pulse Rate 61 Respiratory Rate 16 Respiratory Effort Normal Blood Pressure 138/86 H Blood Pressure Mean 103 Pulse Ox 99 Positive well nourished, well developed and obese General Appearance ED: well developed; Negative for pallor Nutritional Appearance: obese HEENT HEENT Narrative: Normocephalic atraumatic Eyes PERRL and EOMs intact bilaterally General Eye ED: Negative for pale conjunctiva or scleral icterus Neck supple Chest Wall Chest Narrative: There is reproducible pain with palpation of the left anterior lateral chest wall rib regions 10-12. No bony deformity or crepitance noted. This is the same pain the patient states she has been experiencing Resp normal respiratory effort and clear to auscultation bilaterally Cardio regular rate and regular rhythm Rate: other Other Details: Heart is regular rate and rhythm without murmurs rubs or gallops Radial and carotid pulses are equal and symmetric GI normal to inspection, nondistended, normoactive bowel sounds, non-tender, non-distended and no masses Auscultation: normoactive bowel sounds Palpation: soft Back/Spine Back/Spine Narrative: Mild left CVA pain noted Extremity normal to inspection Extremity Narrative: No asymmetric edema no pitting edema negative Homans' sign bilaterally Neuro oriented x3, CN's II-XII intact bilaterally and no sensory deficits noted Sensorium / Orientation: alert Motor Exam: strength 5/5 throughout Psych Psych Narrative: Patient has a flat affect Mood Affect: depressed Skin no rashes or lesions noted Skin Narrative: No overlying soft tissue changes to suggest trauma or infection General Skin Exam: Negative for jaundice or pallor MDM MDM MDM Narrative Medical decision making narrative: Patient arrived to the ER mildly hypertensive but otherwise with stable vitals. She reported left- sided chest wall/rib pain but denied any recent trauma or excessive activity. She does have faint left CVA pain as well therefore there is concern this could be related to pyelonephritis (more content not included)... Normal [facility] ,Urineon 07-03-2024 Beta HCG ( test) Ql (U) Negative Normal [facility] Comment on above: Order Comment: COLLE CTOR TO SPECIFY Result Comment: Very dilute urine specimens, as indicated by a low specific gravity, may not contain telephone claims representative levels of hCG. If is still suspected, a first morning urine specimen should be collected 48 hours later and tested. Performed By: #### L 400.7600, [id number] ####[facility] [address] [place], [place], [id number] Ribs Uni Min 3V w/PA Cheston 07-03-2024 Ribs Uni Min 3V w/PA Chest [facility] Imaging Services [address] [place], [place] [address] Ribs Uni Min 3V w/PA Chest MR#: [id number] Acct: [id number] Name: GABRIELLE CARROLL Rep #: [id number] : 2000 F 23 From: Richard adams MD PCP: Dr. Barry Reeves MD Status: REG ER Study: Ribs Uni Min 3V w/PA Chest Date of Exam: 07/03 Exam# [id number] Ordering [place]: [place] [id number] EXAM: XR LEFT RIBS AND AP CHEST, 3 OR MORE VIEWS CLINICAL INDICATION: pain pain TECHNIQUE: Frontal and oblique views of the left ribs and frontal view of the chest. COMPARISON: Chest x-ray 03/30/2024. FINDINGS: LUNGS AND PLEURAL SPACES: Unremarkable. No consolidation or edema. No pneumothorax. No effusion. HEART: Unremarkable. Cardiac silhouette not enlarged. MEDIASTINUM: Central airways and mediastinal contour are unremarkable. BONES/JOINTS: Unremarkable. No evidence of displaced rib fractures. RAD/Ribs Uni Min 3V w/PA Chest IMPRESSION: Negative chest and left ribs series. Electronically Signed: Richard Duarte MD at 4:42 EDT Reading Location ID and State: [facility] / [place] , Service support , CC: Dr. 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 [place], [place], [address] BACTERIA RARE Normal None Seen [facility] Comment on above: Order Comment: ERUM CTOR TO SPECIFY Performed By: #### L 400.7600, [id number] ####[facility] [address] [place], [address] EPI,SQUAMOUS 0 SEEN Normal 5-10 [facility] Comment on above: Order Comment: ERUM CTOR TO SPECIFY Performed By: #### L 400.7600, [id number] ####[facility] [address] [place], [address] Mucus Ql (Urine sed) 0 SEEN Normal [facility] Comment on above: Order Comment: ERUM CTOR TO SPECIFY Performed By: #### L 400.7600, [id number] ####[facility] [address] [place], [address] RBC 0 SEEN Normal 0-5 [facility] Comment on above: Order Comment: ERUM CTOR TO SPECIFY Performed By: #### L 400.7600, [id number] ####[facility] [address] [place], [address] WBC 0 SEEN Normal 0-5 [facility] Comment on above: Order Comment: ERUM CTOR TO SPECIFY Performed By: #### L 400.7600, [id number] ####[facility] [address] [place], [address] No Panel Informationon 06-19 Culture Wound Aerobe Few Normal skin solange ra present. Sensitivity testing not indicated. [facility] Work Phone: GS Rare Epithelial cell s 3+ Polymorphonuclear cells Rare Gram Positive Cocci Rare Gram Negative Rods [facility] Work Phone: HCGQon 06-04-2024 hCG, quantitative <1.0 Normal [facility] ([place]) Comment on above: Result Comment: HCG Levels with Gestation age: 0.2- 1 week. . . . . . . . . . . . . . . 5 - 50 mIU/mL 1-2 weeks . . . . . . . . . . . . . . . 50 - 500 mIU/mL 2-3 weeks . . . . . . . . . . . . . . . 100 - 5,000 mIU/ml 3-4 weeks . . . . . . . . . . . . . . . 500 - 10,000 mIU/mL 4-5 weeks . . . . . . . . . . . . . . . 1,000 - 5,000 mIU/mL 5-6 weeks . . . . . . . . . . . . . . . 10,000 - 100,000 mIU/mL 6-8 weeks . . . . . . . . . . . . . . . 15,000 - 200,000 mIU/mL 2-3 months . . . . . . . . . . . . . . . 10,000 - 100,000 mIU/mL Performed By: #### H CGQ #### [place] [address] LABORATORYOrdered By: SYSTEM SYSTEM on 06-04-2024 HCG Qn mIU/mL Invalid Interpretation Code AO ADM SS Comment on above: Interpretive Data: H CG Levels with Gestation age: 0.2- 1 week. . . . . . . . . . . . . . . 5 - 50 mIU/mL 1-2 weeks . . . . . . . . . . . . . . . 50 - 500 mIU/mL 2-3 weeks . . . . . . . . . . . . . . . 100 - 5,000 mIU/ml 3-4 weeks . . . . . . . . . . . . . . . 500 - 10,000 mIU/mL 4-5 weeks . . . . . . . . . . . . . . . 1,000 - 5,000 mIU/mL 5-6 weeks . . . . . . . . . . . . . . . 10,000 - 100,000 mIU/mL 6-8 weeks . . . . . . . . . . . . . . . 15,000 - 200,000 mIU/mL 2-3 months . . . . . . . . . . . . . . . 10,000 - 100,000 mIU/mL UA DIP, URINE (POC)on 2023 BILIRUBIN UA (POCT) Negative Negative [facility] CLARITY UA (POCT) Clear [facility] COLOR UA (POCT) Yellow [facility] GLUCOSE UA (POCT) Negative Negative mg/dL [facility] Hemoglobin Ql (U) Negative Negative [facility] KETONE UA (POCT) Trace Negative mg/dL [facility] LEUKOCYTES UA (POCT) Negative Negative [facility] NITRITE UA (POCT) Negative Negative [facility] PH UA (POCT) 5.5 4.5 - 8.0 [facility] Protein Ql (U) Negative Negative mg/dL [facility] SPECIFIC GRAVITY UA (POCT) >=1.030 1.005 - 1.030 [facility] UROBILINOGEN UA (POCT) 0.2 Pham l E.U./dL [facility] Location:[address], [place], [place], [id number] [place] [address] POINT OF CARE [facility] Absolute lymphocyte countOrd ered By: Juan Jose Salguero on 03-30-2024 Lymphocytes Auto (Unsp spec) [#/Vol] 4.39 10*3/uL 0.83-4.51 [facility] Automated lymphocyte count a s percentage of total leukocytesOrdered By: Juan Jose Salgeuro on 03-30-2024 Lymphocytes/100 WBC Auto (Unsp spec) 30.7 % 19-41 [facility] Basophil percentageOrdered B y: Juan Jose Salguero on 03-30-2024 Basophils/100 WBC (Bld) 0.3 % 0-1 [facility] Chloride [Moles/Vol] 108 mmol/L 98-107 [facility] Eosinophils/100 WBC (Bld) 0.7 % 0-5 [facility] Glucose [Mass/Vol] 124 mg/dL 74-106 [facility] Comment on above: Fasting Glucose resu lt from 100 to 125 mg/dL suggests IMPAIRED HOMEOSTASIS per A.D.A. criteria. Hemoglobin (Bld) [Mass/Vol] 13.1 g/dL 12.0-15.0 [facility] Monocytes/100 WBC (Bld) 5.4 % 0-10 [facility] Neutrophils (Bld) [#/Vol] 8.9 10*3/uL 2.0-7.7 [facility] Neutrophils/100 WBC (Bld) 62.6 % 47-70 [facility] Potassium [Moles/Vol] 3.4 mmol/L 3.5-5.1 [facility] Sodium [Moles/Vol] 140 mmol/L 136-145 [facility] WBC (Bld) [#/Vol] 14.3 10*3/uL 4.4-11.0 [facility] Determination of erythrocyte mean corpuscular volume (MCV)Ordered By: Juan Jose Salguero on 03-30-2024 MCV (RBC) [Entitic vol] 90.5 fL 81-99 [facility] Erythrocyte distribution wid th ratioOrdered By: Juan Jose Salguero on 03-30-2024 Erythrocyte distribution width (RBC) [Ratio] 13.3 % 11.6-14.6 [facility] Erythrocyte distribution wid th standard deviationOrdered By: Juan Jose Salguero on 03-30-2024 Erythrocyte distribution width (RBC) [Entitic vol] 43.8 fL 35.1-43.9 [facility] Hematocrit Auto (Bld) [Volum e fraction]Ordered By: Juan Jose Salguero on 03-30-2024 Hematocrit (Bld) [Volume fraction] 40.1 % 37-47 [facility] Immature granulocytes/100 WB C Auto (Bld)Ordered By: Juan Jose Salguero on 03-30-2024 Immature granulocytes/100 WBC (Bld) 0.300 % 0.0-0.9 [facility] Comment on above: IG% - Immature Granu locytes (promyelocytes, myelocytes and metamyelocytes) > 1% indicates that a LEFT SHIFT is Present. Laboratory - Chemistry and C hemistry - challengeOrdered By: Juan Jose Salguero on 03-30-2024 CO2 [Moles/Vol] 26.0 mmol/L 21.0-32.0 [facility] Urea nitrogen/Creatinine [Mass ratio] 21.0 mg/mg 10-20 [facility] Laboratory - Hematology and Cell countsOrdered By: Juan Jose Salguero on 03-30-2024 MCH (RBC) [Entitic mass] 29.6 pg 27.0-32.0 [facility] MCHC (RBC) [Mass/Vol] 32.7 g/dL 32-36 [facility] Nucleated RBC/100 WBC (Bld) [Ratio] 0 % 0-5 [facility] Platelet mean volume (Bld) [Entitic vol] 11.6 fL 6.2-12.0 [facility] Platelets (Bld) [#/Vol] 309 10*3/uL 150-450 [facility] No Panel InformationOrdered By: Juan Jose Salguero on 03-30-2024 Troponin I High Sensitivity 3 pg/mL 3.0-54.0 [facility] Comment on above: Please Note: New Dilma t Units and Gender Specific Reference Ranges. For more information see Policy Stat Procedure [place] High Sensitivity Troponin (TNIH) and attachments. D-Dimer Quantitative (PE/DVT) 0.29 FEU/ug/m 0.27-0.49 [facility] Comment on above: NORMAL D-Dimer level (<0.50) indicates no DVT or PE. Estimated Creatinine Clearance Calc 129.73 ml/min [facility] Estimated GFR (MDRD) Amer 114 mL/min >60 [facility] Comment on above: GFR Calc Estimated GFR (MDRD) Non-Af Amer 94 mL/min >60 [facility] Comment on above: Non- GFR Calc RBC Auto (Bld) [#/Vol]Ordere d By: Juan Jose Salguero on 03-30-2024 RBC (Bld) [#/Vol] 4.43 10*6/uL 4.2-5.4 [facility] Serum or plasma calcium valdez urement (mass/volume)Ordered By: Juan Jose Salguero on 03-30-2024 Calcium [Mass/Vol] 8.8 mg/dL 8.5-10.1 [facility] Serum or plasma creatinine m easurement (mass/volume)Ordered By: Juan Jose Salguero on 03-30-2024 Creatinine [Mass/Vol] 0.81 mg/dL 0.55-1.02 [facility] Comment on above: The validity of the calculated GFR & GFRAA in patients over 70 years has not been determined. Clinical correlation is essential. Serum or plasma urea nitroge n measurement (mass/volume)Ordered By: Juan Jose Salguero on 03-30-2024 Urea nitrogen [Mass/Vol] 17 mg/dL 7-18 [facility] Thin prep Papanicolaou smear with manual screeningOrdered By: Juan Jose Salguero on 03-30-2024 Thin prep Papanicolaou smear with manual screening 6 5-15 [facility] .Auto Diffon 01-11-2024 Basophil, Absolute 0.0 10 3/mcL Normal 0.0-0.2 [facility] ([place]) Comment on above: Performed By: #### L IP, CMP, CBC, GFR, ANEU, MDW, ADIFF #### [address] [address] Basophils/100 WBC (Bld) 0.3 % Normal 0.0-2.5 [facility] ([place]) Comment on above: Performed By: #### L IP, CMP, CBC, GFR, ANEU, MDW, ADIFF #### [address] [address] Eosinophil, Absolute 0.0 10 3/mcL Normal 0.0-0.4 [facility] ([place]) Comment on above: Performed By: #### L IP, CMP, CBC, GFR, ANEU, MDW, ADIFF #### [address] [address] Eosinophils/100 WBC (Bld) 0.1 % Normal 0.0-7.0 [facility] ([place]) Comment on above: Performed By: #### L IP, CMP, CBC, GFR, ANEU, MDW, ADIFF #### [address] [address] Lymphocyte, Absolute 2.1 10 3/mcL Normal 0.8-3.9 [facility] ([place]) Comment on above: Performed By: #### L IP, CMP, CBC, GFR, ANEU, MDW, ADIFF #### [address] [address] Lymphocytes/100 WBC (Bld) 19.1 % Normal 10.0-50.0 [facility] ([place]) Comment on above: Performed By: #### L IP, CMP, CBC, GFR, ANEU, MDW, ADIFF #### [address] [address] Monocyte, Absolute 0.6 10 3/mcL Normal 0.2-1.0 [facility] ([place]) Comment on above: Performed By: #### L IP, CMP, CBC, GFR, ANEU, TESSIE, ADIFF #### [address] [address] Monocytes/100 WBC (Bld) 5.8 % Normal 1.7-13.0 [facility] ([place]) Comment on above: Performed By: #### L IP, CMP, CBC, GFR, ANEU, TESSIE, ADIFF #### [address] [address] Neutrophils/100 WBC (Bld) 74.7 % Normal 37.0-80.0 [facility] ([place]) Comment on above: Performed By: #### L IP, CMP, CBC, GFR, TESSIE ROSS, ADIFF #### [address] [address] .GFRon 01-11-2024 GFR 96 ml/min/1.73sqm Normal [facility] ([place]) Comment on above: Result Comment: GFR Population mean for , Non- Americans Ages 20-29 = 116 mL/min/1.73 sq.m. Ages 30-39 = 107 mL/min/1.73 sq.m. Ages 40-49 = 99 mL/min/1.73 sq.m. Ages 50-59 = 93 mL/min/1.73 sq.m. Ages 60-69 = 85 mL/min/1.73 sq.m. Ages 70+ = 75 mL/min/1.73 sq.m. Chronic Kidney Disease: Less than 60 mL/min/1.73 square meters End Stage Renal Disease: Less than 15 mL/min/1.73 square meters Performed By: #### L IP, CMP, CBC, GFR, ANEU, TESSIE, ADIFF #### [address] [address] GFR Non- 79 ml/min/1.73sqm Normal [facility] ([place]) Comment on above: Result Comment: GFR Population mean for , Non- Americans Ages 20-29 = 116 mL/min/1.73 sq.m. Ages 30-39 = 107 mL/min/1.73 sq.m. Ages 40-49 = 99 mL/min/1.73 sq.m. Ages 50-59 = 93 mL/min/1.73 sq.m. Ages 60-69 = 85 mL/min/1.73 sq.m. Ages 70+ = 75 mL/min/1.73 sq.m. Chronic Kidney Disease: Less than 60 mL/min/1.73 square meters End Stage Renal Disease: Less than 15 mL/min/1.73 square meters Performed By: #### L IP, CMP, CBC, GFR, ANEU, W, ADIFF #### [address] [address] .MDWon 01-11-2024 Monocyte Distribution Width 14.55 Normal 0.00-20.00 [facility] ([place]) Comment on above: Result Comment: For ED adult patients suspected of sepsis, MDW<=20.0 does not rule out sepsis or risk of sepsis Performed By: #### L IP, CMP, CBC, GFR, ANEU, MDW, ADIFF #### [address] [address] .NEUABSon 01-11-2024 Neutrophil, Absolute 8.1 10 3/mcL High 2.9-6.2 [facility] ([place]) Comment on above: Performed By: #### L IP, CMP, CBC, GFR, ANEU, MDW, ADIFF #### [address] [address] Absolute lymphocyte countOrd ered By: Deuce Levy on 01-11-2024 Lymphocytes Auto (Unsp spec) [#/Vol] 3.97 10*3/uL 0.83-4.51 [facility] Automated lymphocyte count a s percentage of total leukocytesOrdered By: Deuce Levy on 01-11-2024 Lymphocytes/100 WBC Auto (Unsp spec) 38.4 % 19-41 [facility] BMPon 01-11-2024 BUN/Creatinine Ratio 9 ratio Normal 7-27 [facility] ([place]) Comment on above: Performed By: #### L IP, CMP, CBC, GFR, ANEU, MDW, ADIFF #### [address] [address] Calcium [Mass/Vol] 9.1 mg/dL Normal 8.4-10.2 [facility] ([place]) Comment on above: Performed By: #### L IP, CMP, CBC, GFR, ANEU, MDW, ADIFF #### [address] [address] Chloride [Moles/Vol] 103 mmol/L Normal 98-107 [facility] ([place]) Comment on above: Performed By: #### L IP, CMP, CBC, GFR, ANEU, MDW, ADIFF #### [address] [address] CO2 [Moles/Vol] 28 mmol/L Normal 22-29 [facility] ([place]) Comment on above: Performed By: #### L IP, CMP, CBC, GFR, ANEU, MDW, ADIFF #### [address] [address] Creatinine [Mass/Vol] 0.90 mg/dL Normal 0.55-1.02 [facility] ([place]) Comment on above: Performed By: #### L IP, CMP, CBC, GFR, ANEU, MDW, ADIFF #### [address] [address] Electrolyte Balance 10.0 mEq/L Normal 4.0-15.0 [facility] ([place]) Comment on above: Performed By: #### L IP, CMP, CBC, GFR, ANEU, MDW, ADIFF #### [address] [address] Glucose [Mass/Vol] 99 mg/dL Normal 70-105 [facility] ([place]) Comment on above: Performed By: #### L IP, CMP, CBC, GFR, ANEU, MDW, ADIFF #### [address] [address] Potassium [Moles/Vol] 4.1 mmol/L Normal 3.5-5.1 [facility] ([place]) Comment on above: Performed By: #### L IP, CMP, CBC, GFR, VANDANA, W, ADIFF #### [facility] [address] [place], [place] [address] Sodium [Moles/Vol] 141 mmol/L Normal 136-145 [facility] ([place]) Comment on above: Performed By: #### L IP, CMP, CBC, GFR, ANEU, MDW, ADIFF #### [address] [place], [place] [address] Urea nitrogen [Mass/Vol] 8 mg/dL Normal 7-18 [facility] ([place]) Comment on above: Performed By: #### L IP, CMP, CBC, GFR, VANDANA, MDW, ADIFF #### [address] [place], [place] [address] Basophil percentageOrdered B y: Deuce Levy on 01-11-2024 Basophils/100 WBC (Bld) 0.3 % 0-1 [facility] Bilirubin [Mass/Vol] 0.40 mg/dL 0.20-1.00 [facility] Comment on above: For patients on eltr ombopag therapy, use of Dimension [place] TBIL is not recommended. Chloride [Moles/Vol] 111 mmol/L 98-107 [facility] Eosinophils/100 WBC (Bld) 1.2 % 0-5 [facility] Glucose [Mass/Vol] 109 mg/dL 74-106 [facility] Comment on above: Fasting Glucose resu lt from 100 to 125 mg/dL suggests IMPAIRED HOMEOSTASIS per A.D.A. criteria. Hemoglobin (Bld) [Mass/Vol] 13.3 g/dL 12.0-15.0 [facility] Monocytes/100 WBC (Bld) 5.4 % 0-10 [facility] Neutrophils (Bld) [#/Vol] 5.6 10*3/uL 2.0-7.7 [facility] Neutrophils/100 WBC (Bld) 54.5 % 47-70 [facility] Potassium [Moles/Vol] 3.8 mmol/L 3.5-5.1 [facility] Protein [Mass/Vol] 7.3 g/dL 6.4-8.2 [facility] Sodium [Moles/Vol] 141 mmol/L 136-145 [facility] WBC (Bld) [#/Vol] 10.3 10*3/uL 4.4-11.0 [facility] CBCon 01-11-2024 Erythrocyte distribution width (RBC) [Ratio] 16.3 % High 11.5-14.5 [facility] ([place]) Comment on above: Performed By: #### H CGQ #### [address] [address] Hematocrit (Bld) [Volume fraction] 40.0 % Normal 37.0-47.0 [facility] ([place]) Comment on above: Performed By: #### H CGQ #### [address] [address] Hgb 13.6 G/dL Normal 12.0-16.0 [facility] ([place]) Comment on above: Performed By: #### H CGQ #### [address] [address] MCH (RBC) [Entitic mass] 28.7 pg Normal 27.0-31.2 [facility] ([place]) Comment on above: Performed By: #### H CGQ #### [address] [address] MCHC 34.0 G/dL Normal 33.0-37.0 [facility] ([place]) Comment on above: Performed By: #### H CGQ #### [address] [address] MCV (RBC) [Entitic vol] 84.4 fL Normal 80.0-94.0 [facility] ([place]) Comment on above: Performed By: #### H CGQ #### [address] [address] Platelet 318 10 3/mcL Normal 130-400 [facility] ([place]) Comment on above: Performed By: #### H CGQ #### [facility] [address] [place], [place] [address] Platelet mean volume (Bld) [Entitic vol] 9.3 fL Normal 7.4-10.4 [facility] ([place]) Comment on above: Performed By: #### H CGQ #### [facility] [address] [place], [place] [address] RBC 4.74 10 6/mcL Normal 4.20-5.40 [facility] ([place]) Comment on above: Performed By: #### H CGQ #### [facility] [address] [place], [place] [address] WBC 10.8 10 3/mcL Normal 4.6-10.8 [facility] ([place]) Comment on above: Performed By: #### H CGQ #### [address] [place], [place] [address] Determination of erythrocyte mean corpuscular volume (MCV)Ordered By: Deuce Levy on 01-11-2024 MCV (RBC) [Entitic vol] 88.1 fL 81-99 [facility] Erythrocyte distribution wid th ratioOrdered By: Deuce Levy on 01-11-2024 Erythrocyte distribution width (RBC) [Ratio] 14.7 % 11.6-14.6 [facility] Erythrocyte distribution wid th standard deviationOrdered By: Deuce Levy on 01-11-2024 Erythrocyte distribution width (RBC) [Entitic vol] 47.2 fL 35.1-43.9 [facility] Hematocrit Auto (Bld) [Volum e fraction]Ordered By: Deuce Levy on 01-11-2024 Hematocrit (Bld) [Volume fraction] 41.4 % 37-47 [facility] Immature granulocytes/100 WB C Auto (Bld)Ordered By: Deuce Levy on 01-11-2024 Immature granulocytes/100 WBC (Bld) 0.200 % 0.0-0.9 [facility] Comment on above: IG% - Immature Granu locytes (promyelocytes, myelocytes and metamyelocytes) > 1% indicates that a LEFT SHIFT is Present. LABORATORYOrdered By: SYSTEM SYSTEM on 01-11-2024 Basophil, Absolute 0.0 103/mcL Normal 0.0 - 0.2 10^3/mcL AO Workflow SS Basophils/100 WBC (Bld) 0.3 % Normal 0.0 - 2.5 % AO Workflow SS Calcium [Mass/Vol] 9.1 mg/dL Normal 8.4 - 10. 2 mg/dL AO ADM SS Chloride [Moles/Vol] 103 mmol/L Normal 98 - 10 7 mmol/L AO ADM SS CO2 [Moles/Vol] 28 mmol/L Normal 22 - 29 mmol/L AO ADM SS Creatinine [Mass/Vol] 0.90 mg/dL Normal 0.55 - 1.02 mg/dL AO ADM SS Electrolyte Balance 10.0 mEq/L Normal 4.0 - 15 .0 mEq/L AO ADM SS Eosinophil, Absolute 0.0 103/mcL Normal 0.0 - 0 .4 10^3/mcL AO Workflow SS Eosinophils/100 WBC (Bld) 0.1 % Normal 0.0 - 7.0 % AO Workflow SS Erythrocyte distribution width (RBC) [Ratio] 16.3 % High 11.5 - 14.5 % AO Workflow SS GFR/1.73 sq M.predicted among blacks MDRD (S/P/Bld) [Vol rate/Area] 96 ml/min/1.73sqm Invalid Interpretation Code AO Chemistry S Comment on above: Interpretive Data: GFR Population mean for , Non- Americans Ages 20-29 = 116 mL/min/1.73 sq.m. Ages 30-39 = 107 mL/min/1.73 sq.m. Ages 40-49 = 99 mL/min/1.73 sq.m. Ages 50-59 = 93 mL/min/1.73 sq.m. Ages 60-69 = 85 mL/min/1.73 sq.m. Ages 70+ = 75 mL/min/1.73 sq.m. Chronic Kidney Disease: Less than 60 mL/min/1.73 square meters End Stage Renal Disease: Less than 15 mL/min/1.73 square meters GFR/1.73 sq M.predicted among non-blacks MDRD (S/P/Bld) [Vol rate/Area] 79 ml/min/1.73sqm Invalid Interpretation Code AO Chemistry S Comment on above: Interpretive Data: GFR Population mean for , Non- Americans Ages 20-29 = 116 mL/min/1.73 sq.m. Ages 30-39 = 107 mL/min/1.73 sq.m. Ages 40-49 = 99 mL/min/1.73 sq.m. Ages 50-59 = 93 mL/min/1.73 sq.m. Ages 60-69 = 85 mL/min/1.73 sq.m. Ages 70+ = 75 mL/min/1.73 sq.m. Chronic Kidney Disease: Less than 60 mL/min/1.73 square meters End Stage Renal Disease: Less than 15 mL/min/1.73 square meters Glucose [Mass/Vol] 99 mg/dL Normal 70 - 105 mg/dL AO ADM SS Hematocrit (Bld) [Volume fraction] 40.0 % Normal 37.0 - 47.0 % AO Workflow SS Hemoglobin (Bld) [Mass/Vol] 13.6 G/dL Normal 12.0 - 16.0 G/dL AO Workflow SS Lymphocyte, Absolute 2.1 103/mcL Normal 0.8 - 3 .9 10^3/mcL AO Workflow SS Lymphocytes/100 WBC (Bld) 19.1 % Normal 10.0 - 50.0 % AO Workflow SS MCH (RBC) [Entitic mass] 28.7 pg Normal 27.0 - 31.2 pg AO Workflow SS MCHC 34.0 G/dL Normal 33.0 - 37.0 G/dL AO Workflow SS MCV (RBC) [Entitic vol] 84.4 fL Normal 80.0 - 94.0 fL AO Workflow SS Monocyte distribution width Auto (Bld) [Entitic vol] 14.55 1 Normal 0.00 - 20.00 AO Workflow SS Comment on above: Result Comment: For ED adult patients suspected of sepsis, MDW<=20.0 does not rule out sepsis or risk of sepsis Monocyte, Absolute 0.6 103/mcL Normal 0.2 - 1.0 10^3/mcL AO Workflow SS Monocytes/100 WBC (Bld) 5.8 % Normal 1.7 - 13.0 % AO Workflow SS Neutrophil, Absolute 8.1 103/mcL High 2.9 - 6 .2 10^3/mcL AO Workflow SS Neutrophils/100 WBC (Bld) 74.7 % Normal 37.0 - 80.0 % AO Workflow SS Platelet mean volume (Bld) [Entitic vol] 9.3 fL Normal 7.4 - 10.4 fL AO Workflow SS Platelets (Bld) [#/Vol] 318 103/mcL Normal 130 - 400 10^3/mcL AO Workflow SS Potassium [Moles/Vol] 4.1 mmol/L Normal 3.5 - 5.1 mmol/L AO ADM SS RBC (Bld) [#/Vol] 4.74 106/mcL Normal 4.20 - 5.4 0 10^6/mcL AO Workflow SS Sodium [Moles/Vol] 141 mmol/L Normal 136 - 145 mmol/L AO ADM SS Urea nitrogen [Mass/Vol] 8 mg/dL Normal 7 - 18 mg/dL AO ADM SS Urea nitrogen/Creatinine [Mass ratio] 9 ratio Normal 7 - 27 ratio AO ADM SS WBC (Bld) [#/Vol] 10.8 103/mcL Normal 4.6 - 10.8 10^3/mcL AO Workflow SS Natriuretic peptide.B prohormone N-Terminal [Mass/Vol] 411 pg/mL High 0 - 125 pg/mL AO ADM SS Comment on above: Interpretive Data: N T-proBNP results of less than 300 pg/mL effectively rules out acute congestive heart failure with 99% negative predictive value. Troponin I.cardiac DL <= 0.01 ng/mL [Mass/Vol] ng/L Normal 0.0 - 51.4 ng/L AO ADM SS Laboratory - Chemistry and C hemistry - challengeOrdered By: Deuce Levy on 01-11-2024 Albumin/Globulin [Mass ratio] 0.9 {ratio} 0.9-2.4 [facility] ALP [Catalytic activity/Vol] 70 U/L 45-117 [facility] ALT [Catalytic activity/Vol] 20 U/L 13-56 [facility] CO2 [Moles/Vol] 25.0 mmol/L 21.0-32.0 [facility] Globulin (S) [Mass/Vol] 3.9 g/dL 2.2-4.2 [facility] Urea nitrogen/Creatinine [Mass ratio] 11.9 mg/mg 10-20 [facility] Laboratory - Hematology and Cell countsOrdered By: Deuce Levy on 01-11-2024 MCH (RBC) [Entitic mass] 28.3 pg 27.0-32.0 [facility] MCHC (RBC) [Mass/Vol] 32.1 g/dL 32-36 [facility] Nucleated RBC/100 WBC (Bld) [Ratio] 0 % 0-5 [facility] Platelet mean volume (Bld) [Entitic vol] 11.8 fL 6.2-12.0 [facility] Platelets (Bld) [#/Vol] 333 10*3/uL 150-450 [facility] No Panel InformationOrdered By: Deuce eLvy on 01-11-2024 Troponin I High Sensitivity < 3 pg/mL 3.0-54.0 [facility] Comment on above: Please Note: New Dilma t Units and Gender Specific Reference Ranges. For more information see Policy Stat Procedure [place] High Sensitivity Troponin (TNIH) and attachments. Estimated Creatinine Clearance Calc 127.11 ml/min [facility] Estimated GFR (MDRD) Amer 109 mL/min >60 [facility] Comment on above: GFR Calc Estimated GFR (MDRD) Non-Af Amer 90 mL/min >60 [facility] Comment on above: Non- GFR Calc PBNPon 01-11-2024 Natriuretic peptide B (Bld) [Mass/Vol] 411 pg/mL High 0-125 [facility] ([place]) Comment on above: Result Comment: NT-p roBNP results of less than 300 pg/mL effectively rules out acute congestive heart failure with 99% negative predictive value. Performed By: #### L IP, CMP, CBC, GFR, ANEU, MDW, ADIFF #### [address] [address] RBC Auto (Bld) [#/Vol]Ordere d By: Deuce Levy on 01-11-2024 RBC (Bld) [#/Vol] 4.70 10*6/uL 4.2-5.4 [facility] Serum or plasma calcium valdez urement (mass/volume)Ordered By: Deuce Levy on 01-11-2024 Calcium [Mass/Vol] 9.2 mg/dL 8.5-10.1 [facility] Serum or plasma creatinine m easurement (mass/volume)Ordered By: Deuce Levy on 01-11-2024 Creatinine [Mass/Vol] 0.84 mg/dL 0.55-1.02 [facility] Comment on above: The validity of the calculated GFR & GFRAA in patients over 70 years has not been determined. Clinical correlation is essential. Serum or plasma urea nitroge n measurement (mass/volume)Ordered By: Deuce Levy on 01-11-2024 Urea nitrogen [Mass/Vol] 10 mg/dL 7-18 [facility] TROPHSon 01-11-2024 Troponin I High Sensitivity <4.0 Normal 0.0-51.4 [facility] ([place]) Comment on above: Performed By: #### L IP, CMP, CBC, GFR, TESSIE ROSS, ADIFF #### [address] [place], [place] [address] Thin prep Papanicolaou smear with manual screeningOrdered By: Deuce Levy on 01-11-2024 Thin prep Papanicolaou smear with manual screening 3.4 g/dL 3.2-5.0 [facility] Thin prep Papanicolaou smear with manual screening 11 U/L 15-37 [facility] Thin prep Papanicolaou smear with manual screening 5 5-15 [facility] XR CHEST 2 VIEWSon XR CHEST 2 VIEWS ORIGINAL EXAMINATION: TWO XRAY VIEWS OF THE CHEST 01/11/2024 9:37 pm COMPARISON: None. HISTORY: ORDERING SYSTEM PROVIDED HISTORY: Reason for Exam: Chest Pain FINDINGS: Suboptimal exam due to patient body habitus and low lung volumes. Low lung volumes. No significant pleural fluid. No radiographic pneumothorax. No definite focal consolidation. Osseous structures grossly unremarkable. IMPRESSION: Suboptimal exam due to patient body habitus. No definite acute radiographic findings. Interpreted by: Marcos Gonzalez Preliminary Report By: Marcos Gonzalez Electronically signed By Marcos Gonzalez Dictated Date: 01/11/2024 9:40:40 PM Prelim Date: 01/11/2024 9:41:23 PM Sign Date: 01/11/2024 9:41:23 PM Ordering Provider: YA Greenberg [facility] ([place]) .Auto Diffon 11-13-2023 Basophil, Absolute 0.0 10 3/mcL Normal 0.0-0.2 [facility] ([place]) Comment on above: Performed By: #### L IP, CMP, CBC, GFR, TESSIE ROSS, ADIFF #### [address] [address] Basophils/100 WBC (Bld) 0.3 % Normal 0.0-2.5 [facility] ([place]) Comment on above: Performed By: #### L IP, CMP, CBC, GFR, ANEU, MDW, ADIFF #### [address] [address] Eosinophil, Absolute 0.1 10 3/mcL Normal 0.0-0.4 [facility] ([place]) Comment on above: Performed By: #### L IP, CMP, CBC, GFR, ANEU, MDW, ADIFF #### [address] [address] Eosinophils/100 WBC (Bld) 1.2 % Normal 0.0-7.0 [facility] ([place]) Comment on above: Performed By: #### L IP, CMP, CBC, GFR, ANEU, MDW, ADIFF #### [address] [address] Lymphocyte, Absolute 2.1 10 3/mcL Normal 0.8-3.9 [facility] ([place]) Comment on above: Performed By: #### L IP, CMP, CBC, GFR, ANEU, MDW, ADIFF #### [address] [address] Lymphocytes/100 WBC (Bld) 19.7 % Normal 10.0-50.0 [facility] ([place]) Comment on above: Performed By: #### L IP, CMP, CBC, GFR, ANEU, MDW, ADIFF #### [address] [address] Monocyte, Absolute 0.7 10 3/mcL Normal 0.2-1.0 [facility] ([place] Comment on above: Performed By: #### L IP, CMP, CBC, GFR, ANEU, MDW, ADIFF #### [address] [address] Monocytes/100 WBC (Bld) 6.7 % Normal 1.7-13.0 [facility] ([place] Comment on above: Performed By: #### L IP, CMP, CBC, GFR, ANEU, MDW, ADIFF #### [address] [address] Neutrophils/100 WBC (Bld) 72.1 % Normal 37.0-80.0 [facility] ([place] Comment on above: Performed By: #### L IP, CMP, CBC, GFR, ANEU, MDW, ADIFF #### [place] [address] .NEUABSon 11-13-2023 Neutrophil, Absolute 7.5 10 3/mcL High 2.9-6.2 [facility] ([place] Comment on above: Performed By: #### L IP, CMP, CBC, GFR, ANEU, MDW, ADIFF #### [address] [address] CBCon 11-13-2023 Erythrocyte distribution width (RBC) [Ratio] 14.8 % High 11.5-14.5 [facility] ([place]) Comment on above: Performed By: #### L IP, CMP, CBC, GFR, ANEU, MDW, ADIFF #### [address] [address] Hematocrit (Bld) [Volume fraction] 28.4 % Low 37.0-47.0 [facility] ([place] Comment on above: Performed By: #### L IP, CMP, CBC, GFR, ANEU, MDW, ADIFF #### [address] [address] Hgb 9.5 G/dL Low 12.0-16.0 [facility] ([place] Comment on above: Performed By: #### L IP, CMP, CBC, GFR, ANEU, MDW, ADIFF #### [place] [address] MCH (RBC) [Entitic mass] 28.8 pg Normal 27.0-31.2 [facility] ([place] Comment on above: Performed By: #### L IP, CMP, CBC, GFR, ANEU, MDW, ADIFF #### [address] [address] MCHC 33.6 G/dL Normal 33.0-37.0 [facility] ([place] Comment on above: Performed By: #### L IP, CMP, CBC, GFR, ANEU, MDW, ADIFF #### [address] [address] MCV (RBC) [Entitic vol] 85.7 fL Normal 80.0-94.0 [facility] ([place] Comment on above: Performed By: #### L IP, CMP, CBC, GFR, ANEU, MDW, ADIFF #### [address] [address] Platelet 199 10 3/mcL Normal 130-400 [facility] ([place] Comment on above: Performed By: #### L IP, CMP, CBC, GFR, ANEU, MDW, ADIFF #### [address] [address] Platelet mean volume (Bld) [Entitic vol] 10.1 fL Normal 7.4-10.4 [facility] ([place]) Comment on above: Performed By: #### L IP, CMP, CBC, GFR, ANEU, MDW, ADIFF #### [address] [address] RBC 3.31 10 6/mcL Low 4.20-5.40 [facility] ([place] Comment on above: Performed By: #### L IP, CMP, CBC, GFR, ANEU, MDW, ADIFF #### [address] [address] WBC 10.4 10 3/mcL Normal 4.6-10.8 [facility] ([place]) Comment on above: Performed By: #### L IP, CMP, CBC, GFR, ANEU, MDW, ADIFF #### [address] [address] FMHon 11-13-2023 Mat. Hemorrhage Negative Normal [facility] ([place]) Comment on above: Performed By: #### L IP, CMP, CBC, GFR, ANEU, MDW, ADIFF #### [place] [address] [place] [address] LABORATORYOrdered By: SYSTEM SYSTEM on 11-13-2023 Basophil, Absolute 0.0 103/mcL Normal 0.0 - 0.2 10^3/mcL AO Workflow SS Basophils/100 WBC (Bld) 0.3 % Normal 0.0 - 2.5 % AO Workflow SS Eosinophil, Absolute 0.1 103/mcL Normal 0.0 - 0 .4 10^3/mcL AO Workflow SS Eosinophils/100 WBC (Bld) 1.2 % Normal 0.0 - 7.0 % AO Workflow SS Erythrocyte distribution width (RBC) [Ratio] 14.8 % High 11.5 - 14.5 % AO Workflow SS Hematocrit (Bld) [Volume fraction] 28.4 % Low 37.0 - 47.0 % AO Workflow SS Hemoglobin (Bld) [Mass/Vol] 9.5 G/dL Low 12.0 - 16.0 G/dL AO Workflow SS Lymphocyte, Absolute 2.1 103/mcL Normal 0.8 - 3 .9 10^3/mcL AO Workflow SS Lymphocytes/100 WBC (Bld) 19.7 % Normal 10.0 - 50.0 % AO Workflow SS MCH (RBC) [Entitic mass] 28.8 pg Normal 27.0 - 31.2 pg AO Workflow SS MCHC 33.6 G/dL Normal 33.0 - 37.0 G/dL AO Workflow SS MCV (RBC) [Entitic vol] 85.7 fL Normal 80.0 - 94.0 fL AO Workflow SS Monocyte, Absolute 0.7 103/mcL Normal 0.2 - 1.0 10^3/mcL AO Workflow SS Monocytes/100 WBC (Bld) 6.7 % Normal 1.7 - 13.0 % AO Workflow SS Neutrophil, Absolute 7.5 103/mcL High 2.9 - 6 .2 10^3/mcL AO Workflow SS Neutrophils/100 WBC (Bld) 72.1 % Normal 37.0 - 80.0 % AO Workflow SS Platelet mean volume (Bld) [Entitic vol] 10.1 fL Normal 7.4 - 10.4 fL AO Workflow SS Platelets (Bld) [#/Vol] 199 103/mcL Normal 130 - 400 10^3/mcL AO Workflow SS RBC (Bld) [#/Vol] 3.31 106/mcL Low 4.20 - 5.4 0 10^6/mcL AO Workflow SS WBC (Bld) [#/Vol] 10.4 103/mcL Normal 4.6 - 10.8 10^3/mcL AO Workflow SS LABORATORYOrdered By: Penny Francois on 11-13-2023 cell screen Nicole test Ql (Bld) Negative (11/13/23 5:31 AM) Normal AO BB SS RPRon 11-13-2023 Reagin Ab RPR Ql (S) Non-Reactive Normal Non-[place] ctiv e [facility] ([place]) Comment on above: Result Comment: The RPR test is a non-treponemal assay useful as an aid in the diagnosis of primary and secondary syphilis. It converts to positive generally within 2 weeks after the appearance of a lesion. This test is also useful for monitoring response to antibiotic therapy. A positive RPR screening test will be followed by the FTA ABS test. False positive RPR tests may occur in 1) patients with underlying autoimmune disorders, 2) elderly patients, 3) , and 4) other conditions with abnormal serum globulins. Performed By: #### G FR, ADIFF, BMP, ANEU, CBC #### [address] [address] .Auto Diffon 11-12-2023 Basophil, Absolute 0.0 10 3/mcL Normal 0.0-0.2 [facility] ([place] Comment on above: Performed By: #### G FR, ADIFF, BMP, ANEU, CBC #### [address] [address] Basophils/100 WBC (Bld) 0.2 % Normal 0.0-2.5 [facility] ([place] Comment on above: Performed By: #### G FR, ADIFF, BMP, ANEU, CBC #### [address] [address] Eosinophil, Absolute 0.0 10 3/mcL Normal 0.0-0.4 [facility] ([place] Comment on above: Performed By: #### G FR, ADIFF, BMP, ANEU, CBC #### [address] [address] Eosinophils/100 WBC (Bld) 0.4 % Normal 0.0-7.0 [facility] ([place] Comment on above: Performed By: #### G FR, ADIFF, BMP, ANEU, CBC #### [address] [address] Lymphocyte, Absolute 2.2 10 3/mcL Normal 0.8-3.9 [facility] ([place] Comment on above: Performed By: #### G FR, ADIFF, BMP, ANEU, CBC #### [address] [address] Lymphocytes/100 WBC (Bld) 25.9 % Normal 10.0-50.0 [facility] ([place] Comment on above: Performed By: #### G FR, ADIFF, BMP, ANEU, CBC #### [address] [address] Monocyte, Absolute 0.5 10 3/mcL Normal 0.2-1.0 [facility] ([place] Comment on above: Performed By: #### G FR, ADIFF, BMP, ANEU, CBC #### [address] [address] Monocytes/100 WBC (Bld) 6.3 % Normal 1.7-13.0 [facility] ([place]) Comment on above: Performed By: #### G FR, ADIFF, BMP, ANEU, CBC #### [address] [address] Neutrophils/100 WBC (Bld) 67.2 % Normal 37.0-80.0 [facility] ([place] Comment on above: Performed By: #### G FR, ADIFF, BMP, ANEU, CBC #### [address] [address] .NEUABSon 11-12-2023 Neutrophil, Absolute 5.7 10 3/mcL Normal 2.9-6.2 [facility] ([place] Comment on above: Performed By: #### G FR, ADIFF, BMP, ANEU, CBC #### [address] [address] ABIDon 11-12-2023 Antibody ID Passive Anti-D Invalid Interpretation Code [facility] ([place]) Comment on above: Order Comment: Order ed by Discern Performed By: #### G FR, ADIFF, BMP, ANEU, CBC #### [address] [address] AUTOCon 11-12-2023 Auto Control Negative Normal [facility] ([place]) Comment on above: Order Comment: Order ed by Discern Performed By: #### G FR, ADIFF, BMP, ANEU, CBC #### [place] [address] CBCon 11-12-2023 Erythrocyte distribution width (RBC) [Ratio] 14.4 % Normal 11.5-14.5 [facility] ([place] Comment on above: Performed By: #### G FR, ADIFF, BMP, ANEU, CBC #### [place] [address] Hematocrit (Bld) [Volume fraction] 32.3 % Low 37.0-47.0 [facility] ([place] Comment on above: Performed By: #### G FR, ADIFF, BMP, ANEU, CBC #### [place] [address] Hgb 10.8 G/dL Low 12.0-16.0 [facility] ([place] Comment on above: Performed By: #### G FR, ADIFF, BMP, ANEU, CBC #### [place] [address] MCH (RBC) [Entitic mass] 28.2 pg Normal 27.0-31.2 [facility] ([place]) Comment on above: Performed By: #### G FR, ADIFF, BMP, ANEU, CBC #### [place] [address] MCHC 33.5 G/dL Normal 33.0-37.0 [facility] ([place]) Comment on above: Performed By: #### G FR, ADIFF, BMP, ANEU, CBC #### [place] [address] MCV (RBC) [Entitic vol] 84.2 fL Normal 80.0-94.0 [facility] ([place]) Comment on above: Performed By: #### G FR, ADIFF, BMP, ANEU, CBC #### [place] [address] Platelet 232 10 3/mcL Normal 130-400 [facility] ([place]) Comment on above: Performed By: #### G FR, ADIFF, BMP, ANEU, CBC #### [place] [address] Platelet mean volume (Bld) [Entitic vol] 10.1 fL Normal 7.4-10.4 [facility] ([place]) Comment on above: Performed By: #### G FR, ADIFF, BMP, ANEU, CBC #### [place] [address] RBC 3.83 10 6/mcL Low 4.20-5.40 [facility] ([place]) Comment on above: Performed By: #### G FR, ADIFF, BMP, ANEU, CBC #### [place] [address] WBC 8.4 10 3/mcL Normal 4.6-10.8 [facility] ([place]) Comment on above: Performed By: #### G FR, ADIFF, BMP, ANEU, CBC #### [place] [address] Gel ABOon 11-12-2023 ABO/Rh Interp Negative Invalid Interpretation Code [facility] ([place]) Comment on above: Performed By: #### G FR, ADIFF, BMP, ANEU, CBC #### [place] [address] Gel ABSon 11-12-2023 Antibody Screen Gel Positive Normal [facility] ([place]) Comment on above: Performed By: #### G FR, ADIFF, BMP, ANEU, CBC #### [place] [address] LABORATORYOrdered By: Monica Kwon on 11-12-2023 ABO/Rh Interp Negative Invalid Interpretation Code AO BB SS Antibody Screen Gel Positive ABSC (11/12/23 7:26 AM) Normal AO BB SS LABORATORYOrdered By: SYSTEM SYSTEM on 11-12-2023 Basophil, Absolute 0.0 103/mcL Normal 0.0 - 0.2 10^3/mcL AO Workflow SS Basophils/100 WBC (Bld) 0.2 % Normal 0.0 - 2.5 % AO Workflow SS Eosinophil, Absolute 0.0 103/mcL Normal 0.0 - 0 .4 10^3/mcL AO Workflow SS Eosinophils/100 WBC (Bld) 0.4 % Normal 0.0 - 7.0 % AO Workflow SS Erythrocyte distribution width (RBC) [Ratio] 14.4 % Normal 11.5 - 14.5 % AO Workflow SS Hematocrit (Bld) [Volume fraction] 32.3 % Low 37.0 - 47.0 % AO Workflow SS Hemoglobin (Bld) [Mass/Vol] 10.8 G/dL Low 12.0 - 16.0 G/dL AO Workflow SS Lymphocyte, Absolute 2.2 103/mcL Normal 0.8 - 3 .9 10^3/mcL AO Workflow SS Lymphocytes/100 WBC (Bld) 25.9 % Normal 10.0 - 50.0 % AO Workflow SS MCH (RBC) [Entitic mass] 28.2 pg Normal 27.0 - 31.2 pg AO Workflow SS MCHC 33.5 G/dL Normal 33.0 - 37.0 G/dL AO Workflow SS MCV (RBC) [Entitic vol] 84.2 fL Normal 80.0 - 94.0 fL AO Workflow SS Monocyte, Absolute 0.5 103/mcL Normal 0.2 - 1.0 10^3/mcL AO Workflow SS Monocytes/100 WBC (Bld) 6.3 % Normal 1.7 - 13.0 % AO Workflow SS Neutrophil, Absolute 5.7 103/mcL Normal 2.9 - 6 .2 10^3/mcL AO Workflow SS Neutrophils/100 WBC (Bld) 67.2 % Normal 37.0 - 80.0 % AO Workflow SS Platelet mean volume (Bld) [Entitic vol] 10.1 fL Normal 7.4 - 10.4 fL AO Workflow SS Platelets (Bld) [#/Vol] 232 103/mcL Normal 130 - 400 10^3/mcL AO Workflow SS RBC (Bld) [#/Vol] 3.83 106/mcL Low 4.20 - 5.4 0 10^6/mcL AO Workflow SS WBC (Bld) [#/Vol] 8.4 103/mcL Normal 4.6 - 10.8 10^3/mcL AO Workflow SS LABORATORYOrdered By: Ethel Hinojosa on 11-12-2023 Indirect antiglobulin test.IgG specific reagent Ql Negative (11/12/23 7:26 AM) Normal BB Manual SS Passive Anti-D Invalid Interpretation Code [facility] Manual SS LABORATORYOrdered By: Iliana brand on 11-12-2023 Reagin Ab RPR Ql (S) Non-Reactive 1 (11/12/23 7:26 AM) Normal Non-Reactiv e Man Viro/Sero SS Comment on above: Interpretive Data: T he RPR test is a non-treponemal assay useful as an aid in the diagnosis of primary and secondary syphilis. It converts to positive generally within 2 weeks after the appearance of a lesion. This test is also useful for monitoring response to antibiotic therapy. A positive RPR screening test will be followed by the FTA ABS test. False positive RPR tests may occur in 1) patients with underlying autoimmune disorders, 2) elderly patients, 3) , and 4) other conditions with abnormal serum globulins. LABORATORYOrdered By: Donaldo Sheets on 11-12-2023 ABO and Rh group Nom (Bld) A negative (11/12/23 5:44 AM) [facility] Work Phone: Group B Strep Date Performed [id number] [facility] Work Phone: Group B Strep, External Negative (11/12/23 5:44 AM) [facility] Work Phone: Hepatitis B Date Performed [id number] [facility] Work Phone: Hepatitis B, External Negative (11/12/23 5:44 AM) [facility] Work Phone: HIV Antibodies, External Negative (11/12/23 5:44 AM) [facility] Work Phone: RPR, External Nonreactive (11/12/23 5:44 AM) [facility] Work Phone: Rubella, External Immune (11/12/23 5:44 AM) [facility] Work Phone: ABIDon 10-10-2023 Antibody ID Passive Anti-D Invalid Interpretation Code [facility] ([place]) Comment on above: Order Comment: Order ed by Discern Performed By: #### G FR, ADIFF, BMP, ANEU, CBC #### [address] [address] ABO/Rh (Gel)on 10-10-2023 ABO/Rh Interp Negative Invalid Interpretation Code [facility] ([place]) Comment on above: Performed By: #### G FR, ADIFF, BMP, ANEU, CBC #### [address] [address] ABS (Gel)on 10-10-2023 ABSC Interp (Gel) Positive Normal [facility] ([place] Comment on above: Performed By: #### G FR, ADIFF, BMP, ANEU, CBC #### [address] [address] AUTOCon 10-10-2023 Auto Control Negative Normal [facility] ([place] Comment on above: Order Comment: Order ed by Discern Performed By: #### G FR, ADIFF, BMP, ANEU, CBC #### [address] [address] LABORATORYOrdered By: Shani Sanz on 10-10-2023 Glucose [Mass/Vol] 126 mg/dL High 70 - 110 mg/dL [facility] Work Phone: Glucose [Mass/Vol] 72 mg/dL Normal 70 - 110 mg/dL [facility] Work Phone: LABORATORYOrdered By: Wyatt Fenton on 10-09-2023 ABO and Rh group Nom (Bld) Blood group A Rh(D) negative Invalid Interpretation Code BB Auto SS Blood group antibody screen Ql Positive ABSC (10/09/23 11:05 PM) Normal AH BB Auto SS Indirect antiglobulin test.IgG specific reagent Ql Negative (10/09/23 11:05 PM) Normal BB Manual SS Passive Anti-D Invalid Interpretation Code BB Manual SS LABORATORYOrdered By: Cheri carson on 10-09-2023 Blood Glucose Testing Reason Routine (10/09/23 9:33 PM) [facility] Work Phone: Glucose [Mass/Vol] 89 mg/dL Normal 70 - 110 mg/dL [facility] Work Phone: LABORATORYOrdered By: Sona Foley on 10-09-2023 Blood Glucose Testing Reason Routine (10/09/23 6:37 PM) [facility] Work Phone: Blood Glucose Testing Reason Routine (10/09/23 1:53 PM) [facility] Work Phone: LABORATORYOrdered By: Jessica Ortiz on 10-09-2023 ABO and Rh group Nom (Bld) A negative (10/09/23 11:19 AM) [facility] Work Phone: Group B Strep Date Performed [id number] [facility] Work Phone: Group B Strep, External Negative (10/09/23 11:19 AM) [facility] Work Phone: Hepatitis B Date Performed [id number] [facility] Work Phone: Hepatitis B, External Negative (10/09/23 11:19 AM) [facility] Work Phone: RPR, External Nonreactive (10/09/23 11:19 AM) [facility] Work Phone: Rubella, External Immune (10/09/23 11:19 AM) [facility] Work Phone: .Auto Diffon 10-07-2023 Basophil, Absolute 0.0 10 3/mcL Normal 0.0-0.3 [facility] ([place]) Comment on above: Performed By: #### H CGQ #### [place] [address] [address] Basophils/100 WBC (Bld) 0.2 % Normal 0.0-2.5 [facility] ([place]) Comment on above: Performed By: #### H CGQ #### [address] [address] Eosinophil, Absolute 0.0 10 3/mcL Normal 0.0-0.7 [facility] ([place]) Comment on above: Performed By: #### H CGQ #### [address] [address] Eosinophils/100 WBC (Bld) 0.1 % Normal 0.0-6.0 [facility] ([place] Comment on above: Performed By: #### H CGQ #### [address] [address] Lymphocyte, Absolute 2.1 10 3/mcL Normal 0.9-4.3 [facility] ([place] Comment on above: Performed By: #### H CGQ #### [address] [address] Lymphocytes/100 WBC (Bld) 20.7 % Normal 20.0-40.0 [facility] ([place] Comment on above: Performed By: #### H CGQ #### [address] [address] Monocyte, Absolute 0.9 10 3/mcL Normal 0.1-1.4 [facility] ([place] Comment on above: Performed By: #### H CGQ #### [address] [address] Monocytes/100 WBC (Bld) 8.6 % Normal 2.0-13.0 [facility] ([place]) Comment on above: Performed By: #### H CGQ #### [address] [address] Neutrophils/100 WBC (Bld) 70.4 % Normal 50.0-75.0 [facility] ([place] Comment on above: Performed By: #### H CGQ #### [address] [address] .NEUABSon 10-07-2023 Neutrophil, Absolute 7.1 10 3/mcL Normal 2.3-8.1 [facility] ([place] Comment on above: Performed By: #### H CGQ #### [address] [address] A1Con 10-07-2023 HbA1c (Bld) [Mass fraction] 4.9 % Normal 4.0-6.0 [facility] ([place] Comment on above: Performed By: #### L IP, CMP, CBC, GFR, ANEU, MDW, ADIFF #### [address] [address] CBCon 10-07-2023 Erythrocyte distribution width (RBC) [Ratio] 14.3 % Normal 11.5-15.5 [facility] ([place] Comment on above: Performed By: #### H CGQ #### [address] [address] Hematocrit (Bld) [Volume fraction] 30.5 % Low 34.0-46.0 [facility] ([place] Comment on above: Performed By: #### H CGQ #### [address] [address] Hgb 10.1 G/dL Low 12.0-16.0 [facility] ([place] Comment on above: Performed By: #### H CGQ #### [address] [address] MCH (RBC) [Entitic mass] 29.9 pg Normal 27.0-33.0 [facility] ([place] Comment on above: Performed By: #### H CGQ #### [address] [address] MCHC 33.1 G/dL Normal 32.0-36.0 [facility] ([place] Comment on above: Performed By: #### H CGQ #### [address] [address] MCV (RBC) [Entitic vol] 90.5 fL Normal 80.0-99.0 [facility] ([place] Comment on above: Performed By: #### H CGQ #### [address] [address] Platelet 261 10 3/mcL Normal 150-450 [facility] ([place] Comment on above: Performed By: #### H CGQ #### [place] [address] [place], [place] [address] Platelet mean volume (Bld) [Entitic vol] 9.5 fL Normal 6.6-10.5 [facility] ([place] Comment on above: Performed By: #### H CGQ #### [address] [address] RBC 3.38 10 6/mcL Low 4.10-5.30 [facility] ([place] Comment on above: Performed By: #### H CGQ #### [address] [address] WBC 10.1 10 3/mcL Normal 4.5-10.8 [facility] ([place] Comment on above: Performed By: #### H CGQ #### [address] [address] GBSPCRon 10-07-2023 Group B Strep (PCR) Negative Normal Negative [facility] ([place]) Comment on above: Performed By: #### G FR, ADIFF, BMP, ANEU, CBC #### [address] [address] Group B Strep PCR Int Normal [facility] ([place]) Comment on above: Result Comment: Grou p B Streptococcus DNA not detected by real-time PCR. A negative result does not rule out the possibility of Group B streptococcus. Assay should be used as an adjunct to clinical observations and other information available to the physician. The test is not intended to differentiate carriers of Group B streptococcus from those with streptococcal disease. See Below Performed By: #### G FR, ADIFF, BMP, ANEU, CBC #### [address] [address] LABORATORYOrdered By: Jessica Ortiz on 10-07-2023 Time of Stated Blood Glucose [id number] [facility] Work Phone: Time of Stated Blood Glucose [id number] [facility] Work Phone: LABORATORYOrdered By: SYSTEM SYSTEM on 10-07-2023 Basophils (Bld) [#/Vol] 0.0 103/mcL Normal 0.0 - 0.3 10^3/mcL AH Workflow SS Basophils/100 WBC (Bld) 0.2 % Normal 0.0 - 2.5 % AH Workflow SS Eosinophils (Bld) [#/Vol] 0.0 103/mcL Normal 0.0 - 0.7 10^3/mcL AH Workflow SS Eosinophils/100 WBC (Bld) 0.1 % Normal 0.0 - 6.0 % AH Workflow SS Erythrocyte distribution width (RBC) [Ratio] 14.3 % Normal 11.5 - 15.5 % AH Workflow SS Hematocrit (Bld) [Volume fraction] 30.5 % Low 34.0 - 46.0 % AH Workflow SS Hemoglobin (Bld) [Mass/Vol] 10.1 G/dL Low 12.0 - 16.0 G/dL AH Workflow SS Lymphocytes (Bld) [#/Vol] 2.1 103/mcL Normal 0.9 - 4.3 10^3/mcL AH Workflow SS Lymphocytes/100 WBC (Bld) 20.7 % Normal 20.0 - 40.0 % AH Workflow SS MCH (RBC) [Entitic mass] 29.9 pg Normal 27.0 - 33.0 pg AH Workflow SS MCHC 33.1 G/dL Normal 32.0 - 36.0 G/dL AH Workflow SS MCV (RBC) [Entitic vol] 90.5 fL Normal 80.0 - 99.0 fL AH Workflow SS Monocytes (Bld) [#/Vol] 0.9 103/mcL Normal 0.1 - 1.4 10^3/mcL AH Workflow SS Monocytes/100 WBC (Bld) 8.6 % Normal 2.0 - 13.0 % AH Workflow SS Neutrophils (Bld) [#/Vol] 7.1 103/mcL Normal 2.3 - 8.1 10^3/mcL AH Workflow SS Neutrophils/100 WBC (Bld) 70.4 % Normal 50.0 - 75.0 % AH Workflow SS Platelet mean volume (Bld) [Entitic vol] 9.5 fL Normal 6.6 - 10.5 fL AH Workflow SS Platelets (Bld) [#/Vol] 261 103/mcL Normal 150 - 450 10^3/mcL AH Workflow SS RBC (Bld) [#/Vol] 3.38 106/mcL Low 4.10 - 5.3 0 10^6/mcL AH Workflow SS WBC (Bld) [#/Vol] 10.1 103/mcL Normal 4.5 - 10.8 10^3/mcL Workflow SS Laboratory - Hematology and Cell countsOrdered By: SYSTEM SYSTEM on 10-07-2023 HbA1c (Bld) [Mass fraction] 4.9 % 4.0 - 6.0 % Auto Chem SS .Auto Diffon 10-06-2023 Basophil, Absolute 0.0 10 3/mcL Normal 0.0-0.2 [facility] ([place] Comment on above: Performed By: #### G FR, ADIFF, BMP, ANEU, CBC #### [address] [address] Basophils/100 WBC (Bld) 0.6 % Normal 0.0-2.5 A [facility] ([place] Comment on above: Performed By: #### Meg FR, ADIFF, BMP, ANEU, CBC #### [address] [address] Eosinophil, Absolute 0.1 10 3/mcL Normal 0.0-0.4 [facility] ([place] Comment on above: Performed By: #### Meg FR, ADIFF, BMP, ANEU, CBC #### [address] [address] Eosinophils/100 WBC (Bld) 0.7 % Normal 0.0-7.0 [facility] ([place] Comment on above: Performed By: #### Meg FR, ADIFF, BMP, ANEU, CBC #### [address] [address] Lymphocyte, Absolute 1.8 10 3/mcL Normal 0.8-3.9 [facility] ([place] Comment on above: Performed By: #### Meg FR, ADIFF, BMP, ANEU, CBC #### [address] [address] Lymphocytes/100 WBC (Bld) 23.0 % Normal 10.0-50.0 [facility] ([place] Comment on above: Performed By: #### G FR, ADIFF, BMP, ANEU, CBC #### [address] [address] Monocyte, Absolute 0.6 10 3/mcL Normal 0.2-1.0 [facility] ([place] Comment on above: Performed By: #### G FR, ADIFF, BMP, ANEU, CBC #### [address] [address] Monocytes/100 WBC (Bld) 7.7 % Normal 1.7-13.0 A [facility] ([place] Comment on above: Performed By: #### G FR, ADIFF, BMP, ANEU, CBC #### [address] [address] Neutrophils/100 WBC (Bld) 68.0 % Normal 37.0-80.0 [facility] ([place] Comment on above: Performed By: #### G FR, ADIFF, BMP, ANEU, CBC #### [address] [address] .NEUABSon 10-06-2023 Neutrophil, Absolute 5.4 10 3/mcL Normal 2.9-6.2 [facility] ([place] Comment on above: Performed By: #### G FR, ADIFF, BMP, ANEU, CBC #### [address] [address] .Urinalysis Microscopic (AO) on 10-06-2023 UA RBC None Seen Normal None Seen [facility] ([place] Comment on above: Performed By: #### L IP, CMP, CBC, GFR, ANEU, MDW, ADIFF #### [address] [address] UA Squam Epithelial 0-5 Abnormal None Seen [facility] ([place] Comment on above: Performed By: #### L IP, CMP, CBC, GFR, ANEU, MDW, ADIFF #### [address] [address] UA WBC 0-5 Abnormal None Seen [facility] ([place] Comment on above: Performed By: #### L IP, CMP, CBC, GFR, ANEU, MDW, ADIFF #### [address] [address] ABIDon 10-06-2023 Antibody ID Passive Anti-D Invalid Interpretation Code [facility] ([place] Comment on above: Order Comment: Order ed by Discern Performed By: #### G FR, ADIFF, BMP, ANEU, CBC #### [address] [address] AMNIon 10-06-2023 Amnisure Negative Normal Negative [facility] ([place] Comment on above: Performed By: #### L IP, CMP, CBC, GFR, ANEU, MDW, ADIFF #### [address] [address] AUTOCon 10-06-2023 Auto Control Negative Normal [facility] ([place] Comment on above: Order Comment: Order ed by Discern Performed By: #### G FR, ADIFF, BMP, ANEU, CBC #### [place] [address] CBCon 10-06-2023 Erythrocyte distribution width (RBC) [Ratio] 13.8 % Normal 11.5-14.5 [facility] ([place] Comment on above: Performed By: #### G FR, ADIFF, BMP, ANEU, CBC #### [place] [address] Hematocrit (Bld) [Volume fraction] 32.5 % Low 37.0-47.0 [facility] ([place] Comment on above: Performed By: #### G FR, ADIFF, BMP, ANEU, CBC #### [place] [address] Hgb 10.8 G/dL Low 12.0-16.0 [facility] ([place] Comment on above: Performed By: #### G FR, ADIFF, BMP, ANEU, CBC #### [place] [address] MCH (RBC) [Entitic mass] 28.9 pg Normal 27.0-31.2 [facility] ([place] Comment on above: Performed By: #### G FR, ADIFF, BMP, ANEU, CBC #### [address] [address] MCHC 33.3 G/dL Normal 33.0-37.0 [facility] ([place] Comment on above: Performed By: #### G FR, ADIFF, BMP, ANEU, CBC #### [address] [address] MCV (RBC) [Entitic vol] 86.6 fL Normal 80.0-94.0 [facility] ([place] Comment on above: Performed By: #### G FR, ADIFF, BMP, ANEU, CBC #### [place] [id number] Platelet 270 10 3/mcL Normal 130-400 [facility] ([place] Comment on above: Performed By: #### G FR, ADIFF, BMP, ANEU, CBC #### [address] [address] Platelet mean volume (Bld) [Entitic vol] 9.6 fL Normal 7.4-10.4 [facility] ([place] Comment on above: Performed By: #### G FR, ADIFF, BMP, ANEU, CBC #### [address] [address] RBC 3.75 10 6/mcL Low 4.20-5.40 [facility] ([place] Comment on above: Performed By: #### G FR, ADIFF, BMP, ANEU, CBC #### [address] [address] WBC 8.0 10 3/mcL Normal 4.6-10.8 [facility] ([place] Comment on above: Performed By: #### G FR, ADIFF, BMP, ANEU, CBC #### [address] [address] Gel ABOon 10-06-2023 ABO/Rh Interp Negative Invalid Interpretation Code [facility] ([place] Comment on above: Performed By: #### G FR, ADIFF, BMP, ANEU, CBC #### [address] [address] Gel ABSon 10-06-2023 Antibody Screen Gel Positive Normal [facility] ([place] Comment on above: Performed By: #### G FR, ADIFF, BMP, ANEU, CBC #### [place] [address] UAon 10-06-2023 Color (U) Yellow Normal [facility] ([place] Comment on above: Performed By: #### L IP, CMP, CBC, GFR, ANEU, MDW, ADIFF #### [address] [address] Glucose (U) [Mass/Vol] Negative Normal Negative [facility] ([place] Comment on above: Performed By: #### L IP, CMP, CBC, GFR, ANEU, MDW, ADIFF #### [address] [address] Ketones Ql (U) Negative Normal Negative [facility] ([place] Comment on above: Performed By: #### L IP, CMP, CBC, GFR, ANEU, MDW, ADIFF #### [address] [address] UA Appear Clear Normal Clear [facility] ([place] Comment on above: Performed By: #### L IP, CMP, CBC, GFR, ANEU, MDW, ADIFF #### [address] [address] UA Blood Negative Normal Negative [facility] ([place] Comment on above: Performed By: #### L IP, CMP, CBC, GFR, ANEU, MDW, ADIFF #### [address] [address] UA Leuk Est Trace Abnormal Negative [facility] ([place] Comment on above: Performed By: #### L IP, CMP, CBC, GFR, ANEU, MDW, ADIFF #### [address] [address] UA Nitrite Negative Normal Negative [facility] ([place] Comment on above: Performed By: #### L IP, CMP, CBC, GFR, ANEU, MDW, ADIFF #### [address] [address] UA pH 6.0 Normal 5.0 - 8.0 [facility] ([place] Comment on above: Performed By: #### L IP, CMP, CBC, GFR, VANDANA, W, ADIFF #### [address] [address] UA Protein Negative Normal Negative [facility] ([place] Comment on above: Performed By: #### L IP, CMP, CBC, GFR, ANEU, W, ADIFF #### [address] [address] UA Spec Grav 1.020 Normal 1.015-1.025 [facility] ([place] Comment on above: Performed By: #### L IP, CMP, CBC, GFR, ANEU, MDW, ADIFF #### [address] [address] UA Specimen Type Clean Catch Normal [facility] ([place] Comment on above: Performed By: #### L IP, CMP, CBC, GFR, ANEU, MDW, ADIFF #### [address] [address] UA Urobilinogen 0.2 E.U./dL Normal 0.2-1.0 [facility] ([place] Comment on above: Performed By: #### L IP, CMP, CBC, GFR, ANEU, MDW, ADIFF #### [address] [address] Urobilinogen (U) [Mass/Vol] Negative Normal Negative [facility] ([place] Comment on above: Performed By: #### L IP, CMP, CBC, GFR, ANEU, MDW, ADIFF #### [address] [address] No Panel InformationOrdered By: Danielle Griffith on 09-18-2023 Affirm Pathogens DNA Direct Probe Evans species DNA Probe Negative Gardnerella vaginalis DNA Probe Negative Trichomonas vaginalis DNA Probe Negative [facility] AMNIon 09-14-2023 Amnisure Negative Normal Negative [facility] ([place] Comment on above: Performed By: #### H CGQ #### [place] [address] [place], [place] [address] LABORATORYOrdered By: Heide Au on 09-14-2023 [id number].p lacental Ql (Vag fld) Negative (09/14/23 3:08 AM) Invalid Interpretation Code Negative AO Rapid Testing SS Gel ABOon 09-13-2023 ABO/Rh Interp Negative Invalid Interpretation Code [facility] ([place] Comment on above: Performed By: #### G FR, ADIFF, BMP, ANEU, CBC #### [address] [address] Gel ABSon 09-13-2023 Antibody Screen Gel Negative Normal [facility] ([place] Comment on above: Performed By: #### G FR, ADIFF, BMP, ANEU, CBC #### [address] [address] LABORATORYOrdered By: Monica Kwon on 09-13-2023 ABO/Rh Interp Negative Invalid Interpretation Code AO BB SS Antibody Screen Gel Negative ABSC (09/13/23 12:44 PM) Invalid Interpretation Code AO BB SS .Auto Diffon 09-10-2023 Basophil, Absolute 0.0 10 3/mcL Normal 0.0-0.2 [facility] ([place] Comment on above: Performed By: #### G FR, ADIFF, BMP, ANEU, CBC #### [address] [address] Basophils/100 WBC (Bld) 0.2 % Normal 0.0-2.5 A [facility] ([place] Comment on above: Performed By: #### G FR, ADIFF, BMP, ANEU, CBC #### [address] [address] Eosinophil, Absolute 0.1 10 3/mcL Normal 0.0-0.4 [facility] ([place] Comment on above: Performed By: #### G FR, ADIFF, BMP, ANEU, CBC #### [address] [address] Eosinophils/100 WBC (Bld) 1.4 % Normal 0.0-7.0 [facility] ([place] Comment on above: Performed By: #### G FR, ADIFF, BMP, ANEU, CBC #### [address] [address] Lymphocyte, Absolute 1.9 10 3/mcL Normal 0.8-3.9 [facility] ([place] Comment on above: Performed By: #### G FR, ADIFF, BMP, ANEU, CBC #### [address] [address] Lymphocytes/100 WBC (Bld) 22.8 % Normal 10.0-50.0 [facility] ([place] Comment on above: Performed By: #### G FR, ADIFF, BMP, ANEU, CBC #### [address] [address] Monocyte, Absolute 0.5 10 3/mcL Normal 0.2-1.0 [facility] ([place] Comment on above: Performed By: #### G FR, ADIFF, BMP, ANEU, CBC #### [address] [address] Monocytes/100 WBC (Bld) 5.8 % Normal 1.7-13.0 A [facility] ([place]) Comment on above: Performed By: #### G FR, ADIFF, BMP, ANEU, CBC #### [address] [address] Neutrophils/100 WBC (Bld) 69.8 % Normal 37.0-80.0 [facility] ([place] Comment on above: Performed By: #### G FR, ADIFF, BMP, ANEU, CBC #### [address] [address] .GFRon 09-10-2023 GFR 184 ml/min/1.73sqm Normal [facility] ([place] Comment on above: Result Comment: GFR Population mean for , Non- Americans Ages 20-29 = 116 mL/min/1.73 sq.m. Ages 30-39 = 107 mL/min/1.73 sq.m. Ages 40-49 = 99 mL/min/1.73 sq.m. Ages 50-59 = 93 mL/min/1.73 sq.m. Ages 60-69 = 85 mL/min/1.73 sq.m. Ages 70+ = 75 mL/min/1.73 sq.m. Chronic Kidney Disease: Less than 60 mL/min/1.73 square meters End Stage Renal Disease: Less than 15 mL/min/1.73 square meters Performed By: #### H CGQ #### [address] [address] GFR Non- 152 ml/min/1.73sqm Normal [facility] ([place] Comment on above: Result Comment: GFR Population mean for , Non- Americans Ages 20-29 = 116 mL/min/1.73 sq.m. Ages 30-39 = 107 mL/min/1.73 sq.m. Ages 40-49 = 99 mL/min/1.73 sq.m. Ages 50-59 = 93 mL/min/1.73 sq.m. Ages 60-69 = 85 mL/min/1.73 sq.m. Ages 70+ = 75 mL/min/1.73 sq.m. Chronic Kidney Disease: Less than 60 mL/min/1.73 square meters End Stage Renal Disease: Less than 15 mL/min/1.73 square meters Performed By: #### H CGQ #### [address] [address] .MDWon 09-10-2023 Monocyte Distribution Width 17.99 Normal 0.00-20.00 [facility] ([place] Comment on above: Result Comment: For ED adult patients suspected of sepsis, MDW<=20.0 does not rule out sepsis or risk of sepsis Performed By: #### G FR, ADIFF, BMP, ANEU, CBC #### [address] [address] .NEUABSon 09-10-2023 Neutrophil, Absolute 5.8 10 3/mcL Normal 2.9-6.2 [facility] ([place]) Comment on above: Performed By: #### G FR, ADIFF, BMP, ANEU, CBC #### [address] [address] BMPon 09-10-2023 BUN/Creatinine Ratio 10 ratio Normal 7-27 [facility] ([place]) Comment on above: Performed By: #### H CGQ #### [address] [address] Calcium [Mass/Vol] 8.2 mg/dL Low 8.4-10.2 [facility] ([place]) Comment on above: Performed By: #### H CGQ #### [address] [address] Chloride [Moles/Vol] 104 mmol/L Normal 98-107 [facility] ([place] Comment on above: Performed By: #### H CGQ #### [address] [address] CO2 [Moles/Vol] 21 mmol/L Low 22-29 [facility] ([place]) Comment on above: Performed By: #### H CGQ #### [address] [address] Creatinine [Mass/Vol] 0.51 mg/dL Low 0.55-1.02 [facility] ([place]) Comment on above: Performed By: #### H CGQ #### [address] [address] Electrolyte Balance 15.0 mEq/L Normal 4.0-15.0 [facility] ([place]) Comment on above: Performed By: #### H CGQ #### [address] [address] Glucose [Mass/Vol] 88 mg/dL Normal 70-105 [facility] ([place] Comment on above: Performed By: #### H CGQ #### [address] [address] Potassium [Moles/Vol] 3.8 mmol/L Normal 3.5-5.1 [facility] ([place]) Comment on above: Performed By: #### H CGQ #### [address] [address] Sodium [Moles/Vol] 140 mmol/L Normal 136-145 [facility] ([place] Comment on above: Performed By: #### H CGQ #### [place] [address] [place], [place] [address] Urea nitrogen [Mass/Vol] 5 mg/dL Low 7-18 [facility] ([place]) Comment on above: Performed By: #### H CGQ #### [address] [place], [place] [address] CBCon 09-10-2023 Erythrocyte distribution width (RBC) [Ratio] 13.4 % Normal 11.5-14.5 [facility] ([place]) Comment on above: Performed By: #### G FR, ADIFF, BMP, ANEU, CBC #### [place] [address] Hematocrit (Bld) [Volume fraction] 30.8 % Low 37.0-47.0 [facility] ([place] Comment on above: Performed By: #### G FR, ADIFF, BMP, ANEU, CBC #### [place] [address] Hgb 10.5 G/dL Low 12.0-16.0 [facility] ([place] Comment on above: Performed By: #### G FR, ADIFF, BMP, ANEU, CBC #### [place] [address] MCH (RBC) [Entitic mass] 30.3 pg Normal 27.0-31.2 [facility] ([place] Comment on above: Performed By: #### G FR, ADIFF, BMP, ANEU, CBC #### [place] [id number] MCHC 34.3 G/dL Normal 33.0-37.0 [facility] ([place] Comment on above: Performed By: #### G FR, ADIFF, BMP, ANEU, CBC #### [place] [address] MCV (RBC) [Entitic vol] 88.3 fL Normal 80.0-94.0 [facility] ([place]) Comment on above: Performed By: #### G FR, ADIFF, BMP, ANEU, CBC #### [place] [id number] Platelet 249 10 3/mcL Normal 130-400 [facility] ([place] Comment on above: Performed By: #### G FR, ADIFF, BMP, ANEU, CBC #### [address] [address] Platelet mean volume (Bld) [Entitic vol] 9.2 fL Normal 7.4-10.4 [facility] ([place] Comment on above: Performed By: #### G FR, ADIFF, BMP, ANEU, CBC #### [place] [address] RBC 3.48 10 6/mcL Low 4.20-5.40 [facility] ([place] Comment on above: Performed By: #### G FR, ADIFF, BMP, ANEU, CBC #### [address] [address] WBC 8.4 10 3/mcL Normal 4.6-10.8 [facility] ([place] Comment on above: Performed By: #### G FR, ADIFF, BMP, ANEU, CBC #### [address] [address] LABORATORYOrdered By: SYSTEM SYSTEM on 09-10-2023 Basophil, Absolute 0.0 103/mcL Invalid Interpretation Code 0.0 - 0.2 10^3/mcL AO Workflow SS Basophils/100 WBC (Bld) 0.2 % Invalid Interpretation Code 0.0 - 2.5 % AO Workflow SS Calcium [Mass/Vol] 8.2 mg/dL Invalid Interpretation Code 8.4 - 10.2 mg/dL AO ADM SS Chloride [Moles/Vol] 104 mmol/L Invalid Interpretation Code 98 - 107 mmol/L AO ADM SS CO2 [Moles/Vol] 21 mmol/L Invalid Interpretation Code 22 - 29 mmol/L AO ADM SS Creatinine [Mass/Vol] 0.51 mg/dL Invalid Interpretation Code 0.55 - 1.02 mg/dL AO ADM SS Electrolyte Balance 15.0 mEq/L Invalid Interpretation Code 4.0 - 15.0 mEq/L AO ADM SS Eosinophil, Absolute 0.1 103/mcL Invalid Interpretation Code 0.0 - 0.4 10^3/mcL AO Workflow SS Eosinophils/100 WBC (Bld) 1.4 % Invalid Interpretation Code 0.0 - 7.0 % AO Workflow SS Erythrocyte distribution width (RBC) [Ratio] 13.4 % Invalid Interpretation Code 11.5 - 14.5 % AO Workflow SS GFR/1.73 sq M.predicted among blacks MDRD (S/P/Bld) [Vol rate/Area] 184 ml/min/1.73sqm Invalid Interpretation Code AO Chemistry S Comment on above: Interpretive Data: GFR Population mean for , Non- Americans Ages 20-29 = 116 mL/min/1.73 sq.m. Ages 30-39 = 107 mL/min/1.73 sq.m. Ages 40-49 = 99 mL/min/1.73 sq.m. Ages 50-59 = 93 mL/min/1.73 sq.m. Ages 60-69 = 85 mL/min/1.73 sq.m. Ages 70+ = 75 mL/min/1.73 sq.m. Chronic Kidney Disease: Less than 60 mL/min/1.73 square meters End Stage Renal Disease: Less than 15 mL/min/1.73 square meters GFR/1.73 sq M.predicted among non-blacks MDRD (S/P/Bld) [Vol rate/Area] 152 ml/min/1.73sqm Invalid Interpretation Code AO Chemistry S Comment on above: Interpretive Data: GFR Population mean for , Non- Americans Ages 20-29 = 116 mL/min/1.73 sq.m. Ages 30-39 = 107 mL/min/1.73 sq.m. Ages 40-49 = 99 mL/min/1.73 sq.m. Ages 50-59 = 93 mL/min/1.73 sq.m. Ages 60-69 = 85 mL/min/1.73 sq.m. Ages 70+ = 75 mL/min/1.73 sq.m. Chronic Kidney Disease: Less than 60 mL/min/1.73 square meters End Stage Renal Disease: Less than 15 mL/min/1.73 square meters Glucose [Mass/Vol] 88 mg/dL Invalid Interpretation Code 70 - 105 mg/dL AO ADM SS Hematocrit (Bld) [Volume fraction] 30.8 % Invalid Interpretation Code 37.0 - 47.0 % AO Workflow SS Hemoglobin (Bld) [Mass/Vol] 10.5 G/dL Invalid Interpretation Code 12.0 - 16.0 G/dL AO Workflow SS Lymphocyte, Absolute 1.9 103/mcL Invalid Interpretation Code 0.8 - 3.9 10^3/mcL AO Workflow SS Lymphocytes/100 WBC (Bld) 22.8 % Invalid Interpretation Code 10.0 - 50.0 % AO Workflow SS MCH (RBC) [Entitic mass] 30.3 pg Invalid Interpretation Code 27.0 - 31.2 pg AO Workflow SS MCHC 34.3 G/dL Invalid Interpretation Code 33.0 - 37.0 G/dL AO Workflow SS MCV (RBC) [Entitic vol] 88.3 fL Invalid Interpretation Code 80.0 - 94.0 fL AO Workflow SS Monocyte distribution width Auto (Bld) [Entitic vol] 17.99 1 Invalid Interpretation Code 0.00 - 20.00 AO Workflow SS Comment on above: Result Comment: For ED adult patients suspected of sepsis, MDW<=20.0 does not rule out sepsis or risk of sepsis Monocyte, Absolute 0.5 103/mcL Invalid Interpretation Code 0.2 - 1.0 10^3/mcL AO Workflow SS Monocytes/100 WBC (Bld) 5.8 % Invalid Interpretation Code 1.7 - 13.0 % AO Workflow SS Neutrophil, Absolute 5.8 103/mcL Invalid Interpretation Code 2.9 - 6.2 10^3/mcL AO Workflow SS Neutrophils/100 WBC (Bld) 69.8 % Invalid Interpretation Code 37.0 - 80.0 % AO Workflow SS Platelet mean volume (Bld) [Entitic vol] 9.2 fL Invalid Interpretation Code 7.4 - 10.4 fL AO Workflow SS Platelets (Bld) [#/Vol] 249 103/mcL Invalid Interpretation Code 130 - 400 10^3/mcL AO Workflow SS Potassium [Moles/Vol] 3.8 mmol/L Invalid Interpretation Code 3.5 - 5.1 mmol/L AO ADM SS RBC (Bld) [#/Vol] 3.48 106/mcL Invalid Interpretation Code 4.20 - 5.40 10^6/mcL AO Workflow SS Sodium [Moles/Vol] 140 mmol/L Invalid Interpretation Code 136 - 145 mmol/L AO ADM SS Urea nitrogen [Mass/Vol] 5 mg/dL Invalid Interpretation Code 7 - 18 mg/dL AO ADM SS Urea nitrogen/Creatinine [Mass ratio] 10 ratio Invalid Interpretation Code 7 - 27 ratio AO ADM SS WBC (Bld) [#/Vol] 8.4 103/mcL Invalid Interpretation Code 4.6 - 10.8 10^3/mcL AO Workflow SS INFLUENZA A&B MOLECULAR (POC )on 09-08-2023 Flu A (POCT) Negative Negative [facility] Flu B (POCT) Negative Negative [facility] Procedural Control Valid [facility] STREP A MOLECULAR (POC)on Procedural Control Valid [facility] Strep A (POCT) Negative Negative [facility] RPRon 08-29-2023 Reagin Ab RPR Ql (S) Non-Reactive Normal Non-[place] ctiv e [facility] ([place]) Comment on above: Result Comment: The RPR test is a non-treponemal assay useful as an aid in the diagnosis of primary and secondary syphilis. It converts to positive generally within 2 weeks after the appearance of a lesion. This test is also useful for monitoring response to antibiotic therapy. A positive RPR screening test will be followed by the FTA ABS test. False positive RPR tests may occur in 1) patients with underlying autoimmune disorders, 2) elderly patients, 3) , and 4) other conditions with abnormal serum globulins. Performed By: #### G FR, ADIFF, BMP, ANEU, CBC #### [address] [address] .Auto Diffon 08-28-2023 Basophil, Absolute 0.0 10 3/mcL Normal 0.0-0.2 [facility] ([place] Comment on above: Performed By: #### G FR, ADIFF, BMP, ANEU, CBC #### [address] [address] Basophils/100 WBC (Bld) 0.4 % Normal 0.0-2.5 [facility] ([place] Comment on above: Performed By: #### G FR, ADIFF, BMP, ANEU, CBC #### [address] [address] Eosinophil, Absolute 0.1 10 3/mcL Normal 0.0-0.4 [facility] ([place] Comment on above: Performed By: #### G FR, ADIFF, BMP, ANEU, CBC #### [address] [address] Eosinophils/100 WBC (Bld) 0.9 % Normal 0.0-7.0 [facility] ([place] Comment on above: Performed By: #### G FR, ADIFF, BMP, ANEU, CBC #### [address] [address] Lymphocyte, Absolute 1.9 10 3/mcL Normal 0.8-3.9 [facility] ([place] Comment on above: Performed By: #### G FR, ADIFF, BMP, ANEU, CBC #### [address] [address] Lymphocytes/100 WBC (Bld) 22.1 % Normal 10.0-50.0 [facility] ([place] Comment on above: Performed By: #### G FR, ADIFF, BMP, ANEU, CBC #### [address] [address] Monocyte, Absolute 0.3 10 3/mcL Normal 0.2-1.0 [facility] ([place] Comment on above: Performed By: #### G FR, ADIFF, BMP, ANEU, CBC #### [address] [address] Monocytes/100 WBC (Bld) 3.7 % Normal 1.7-13.0 [facility] ([place]) Comment on above: Performed By: #### G FR, ADIFF, BMP, ANEU, CBC #### [address] [address] Neutrophils/100 WBC (Bld) 72.9 % Normal 37.0-80.0 [facility] ([place] Comment on above: Performed By: #### G FR, ADIFF, BMP, ANEU, CBC #### [address] [address] .NEUABSon 08-28-2023 Neutrophil, Absolute 6.2 10 3/mcL Normal 2.9-6.2 [facility] ([place] Comment on above: Performed By: #### G FR, ADIFF, BMP, ANEU, CBC #### [address] [address] CBCon 08-28-2023 Erythrocyte distribution width (RBC) [Ratio] 13.2 % Normal 11.5-14.5 [facility] ([place] Comment on above: Performed By: #### G FR, ADIFF, BMP, ANEU, CBC #### [place] [address] Hematocrit (Bld) [Volume fraction] 32.9 % Low 37.0-47.0 [facility] ([place] Comment on above: Performed By: #### G FR, ADIFF, BMP, ANEU, CBC #### [place] [address] Hgb 11.1 G/dL Low 12.0-16.0 [facility] ([place] Comment on above: Performed By: #### G FR, ADIFF, BMP, ANEU, CBC #### [address] [address] MCH (RBC) [Entitic mass] 30.9 pg Normal 27.0-31.2 [facility] ([place] Comment on above: Performed By: #### G FR, ADIFF, BMP, ANEU, CBC #### [place] [address] MCHC 33.7 G/dL Normal 33.0-37.0 [facility] ([place] Comment on above: Performed By: #### G FR, ADIFF, BMP, ANEU, CBC #### [place] [address] MCV (RBC) [Entitic vol] 91.5 fL Normal 80.0-94.0 [facility] ([place] Comment on above: Performed By: #### G FR, ADIFF, BMP, ANEU, CBC #### [place] [id number] Platelet 247 10 3/mcL Normal 130-400 [facility] ([place] Comment on above: Performed By: #### G FR, ADIFF, BMP, ANEU, CBC #### [place] [address] Platelet mean volume (Bld) [Entitic vol] 9.6 fL Normal 7.4-10.4 [facility] ([place] Comment on above: Performed By: #### G FR, ADIFF, BMP, ANEU, CBC #### [place] [address] RBC 3.60 10 6/mcL Low 4.20-5.40 [facility] ([place] Comment on above: Performed By: #### G FR, ADIFF, BMP, ANEU, CBC #### [place] [address] WBC 8.6 10 3/mcL Normal 4.6-10.8 [facility] ([place] Comment on above: Performed By: #### G FR, ADIFF, BMP, ANEU, CBC #### [place] [address] [id number] 08-28-2023 Glucose [Mass/Vol] 191 mg/dL High 70-140 [facility] ([place] Comment on above: Performed By: #### G FR, ADIFF, BMP, ANEU, CBC #### [place] [address] LABORATORYOrdered By: Yanely Funk on 08-10-2023 Appearance (U) Clear (08/10/23 5:36 PM) Invalid Interpretation Code Clear AO Auto Urine SS Bilirubin Ql (U) Negative (08/10/23 5:36 PM) Invalid Interpretation Code Negative AO Auto Urine SS Color (U) Yellow (08/10/23 5:36 PM) Invalid Interpretation Code AO Auto Urine SS Glucose Test strip (U) [Mass/Vol] Negative Invalid Interpretation Code Negative AO Auto Urine SS Hemoglobin Auto test strip (U) [Mass/Vol] Negative (08/10/23 5:36 PM) Invalid Interpretation Code Negative AO Auto Urine SS Ketones Ql (U) 40 mg/dL Invalid Interpretation Code Negative AO Auto Urine SS UA Leuk Est Negative (08/10/23 5:36 PM) Invalid Interpretation Code Negative AO Auto Urine SS UA Nitrite Negative (08/10/23 5:36 PM) Invalid Interpretation Code Negative AO Auto Urine SS UA pH 7.0 (08/10/23 5:36 PM) Invalid Interpretation Code 5.0 - 8.0 AO Auto Urine SS UA Protein Negative Invalid Interpretation Code Negative AO Auto Urine SS UA Spec Grav >=1.030 *ABN* (08/10/23 5:36 PM) Invalid Interpretation Code 1.015-1.025 AO Auto Urine SS UA Specimen Type Clean Catch 1 (08/10/23 5:36 PM) Invalid Interpretation Code AO Auto Urine SS Comment on above: Result Comment: Spec imen volumes less than 5 ml may not yield chemical or microscopic results truly reflective of renal function or general metabolic status. UA Urobilinogen 0.2 E.U./dL Invalid Interpretation Code 0.2-1.0 AO Auto Urine SS UAon 08-10-2023 Color (U) Yellow Normal [facility] ([place] Comment on above: Performed By: #### L IP, CMP, CBC, GFR, VANDANA, MDW, ADIFF #### [address] [address] Glucose (U) [Mass/Vol] Negative Normal Negative [facility] ([place] Comment on above: Performed By: #### L IP, CMP, CBC, GFR, ANEU, MDW, ADIFF #### [address] [address] Ketones Ql (U) 40 mg/dL Abnormal Negative [facility] ([place] Comment on above: Performed By: #### L IP, CMP, CBC, GFR, ANEU, MDW, ADIFF #### [address] [address] UA Appear Clear Normal Clear [facility] ([place] Comment on above: Performed By: #### L IP, CMP, CBC, GFR, ANEU, MDW, ADIFF #### [address] [address] UA Blood Negative Normal Negative [facility] ([place] Comment on above: Performed By: #### L IP, CMP, CBC, GFR, ANEU, MDW, ADIFF #### [address] [address] UA Leuk Est Negative Normal Negative [facility] ([place] Comment on above: Performed By: #### L IP, CMP, CBC, GFR, ANEU, MDW, ADIFF #### [address] [address] UA Nitrite Negative Normal Negative [facility] ([place] Comment on above: Performed By: #### L IP, CMP, CBC, GFR, ANEU, MDW, ADIFF #### [place] [address] UA pH 7.0 Normal 5.0 - 8.0 [facility] ([place] Comment on above: Performed By: #### L IP, CMP, CBC, GFR, ANEU, MDW, ADIFF #### [place] [address] UA Protein Negative Normal Negative [facility] ([place] Comment on above: Performed By: #### L IP, CMP, CBC, GFR, ANEU, MDW, ADIFF #### [place] [address] UA Spec Grav >=1.030 Abnormal 1.015-1.025 [facility] ([place] Comment on above: Performed By: #### L IP, CMP, CBC, GFR, ANEU, MDW, ADIFF #### [place] [address] UA Specimen Type Clean Catch Normal [facility] ([place] Comment on above: Result Comment: Spec imen volumes less than 5 ml may not yield chemical or microscopic results truly reflective of renal function or general metabolic status. Performed By: #### L IP, CMP, CBC, GFR, ANEU, MDW, ADIFF #### [place] [address] UA Urobilinogen 0.2 E.U./dL Normal 0.2-1.0 [facility] ([place] Comment on above: Performed By: #### L IP, CMP, CBC, GFR, ANEU, MDW, ADIFF #### [place] [address] Urobilinogen (U) [Mass/Vol] Negative Normal Negative [facility] ([place] Comment on above: Performed By: #### L IP, CMP, CBC, GFR, ANEU, MDW, ADIFF #### [place] [address] .Auto Diffon 07-22-2023 Basophil, Absolute 0.0 10 3/mcL Normal 0.0-0.2 [facility] ([place] Comment on above: Performed By: #### H CGQ #### [address] [address] Basophils/100 WBC (Bld) 0.3 % Normal 0.0-2.5 [facility] ([place] Comment on above: Performed By: #### H CGQ #### [address] [address] Eosinophil, Absolute 0.0 10 3/mcL Normal 0.0-0.4 [facility] ([place] Comment on above: Performed By: #### H CGQ #### [address] [address] Eosinophils/100 WBC (Bld) 0.3 % Normal 0.0-7.0 [facility] ([place] Comment on above: Performed By: #### H CGQ #### [address] [address] Lymphocyte, Absolute 1.6 10 3/mcL Normal 0.8-3.9 [facility] ([place] Comment on above: Performed By: #### H CGQ #### [address] [address] Lymphocytes/100 WBC (Bld) 23.5 % Normal 10.0-50.0 [facility] ([place] Comment on above: Performed By: #### H CGQ #### [address] [address] Monocyte, Absolute 0.3 10 3/mcL Normal 0.2-1.0 [facility] ([place] Comment on above: Performed By: #### H CGQ #### [address] [address] Monocytes/100 WBC (Bld) 4.9 % Normal 1.7-13.0 [facility] ([place] Comment on above: Performed By: #### H CGQ #### [address] [address] Neutrophils/100 WBC (Bld) 71.0 % Normal 37.0-80.0 [facility] ([place] Comment on above: Performed By: #### H CGQ #### [address] [address] .NEUABSon 07-22-2023 Neutrophil, Absolute 4.8 10 3/mcL Normal 2.9-6.2 [facility] ([place] Comment on above: Performed By: #### H CGQ #### [address] [address] .Urinalysis Microscopic (AO) on 07-22-2023 UA Amorphus 3+ /hpf Normal [facility] ([place] Comment on above: Performed By: #### L IP, CMP, CBC, GFR, ANEU, MDW, ADIFF #### [address] [address] UA Bacteria Trace Abnormal [facility] ([place] Comment on above: Performed By: #### L IP, CMP, CBC, GFR, ANEU, MDW, ADIFF #### [address] [address] UA CA Ox Crystal 1+ /hpf Normal [facility] ([place] Comment on above: Performed By: #### L IP, CMP, CBC, GFR, ANEU, MDW, ADIFF #### [address] [address] UA RBC 0-5 Abnormal None Seen [facility] ([place] Comment on above: Performed By: #### L IP, CMP, CBC, GFR, ANEU, MDW, ADIFF #### [address] [address] UA Squam Epithelial LOADED Abnormal None Seen [facility] ([place] Comment on above: Performed By: #### L IP, CMP, CBC, GFR, ANEU, MDW, ADIFF #### [address] [address] UA WBC 0-5 Abnormal None Seen [facility] ([place] Comment on above: Performed By: #### L IP, CMP, CBC, GFR, ANEU, MDW, ADIFF #### [address] [address] AMNIon 07-22-2023 Amnisure Negative Normal Negative [facility] ([place] Comment on above: Performed By: #### L IP, CMP, CBC, GFR, ANEU, MDW, ADIFF #### [place] [id number] CBCon 07-22-2023 Erythrocyte distribution width (RBC) [Ratio] 13.1 % Normal 11.5-14.5 [facility] ([place] Comment on above: Performed By: #### H CGQ #### [address] [address] Hematocrit (Bld) [Volume fraction] 31.7 % Low 37.0-47.0 [facility] ([place] Comment on above: Performed By: #### H CGQ #### [place] [id number] Hgb 11.1 G/dL Low 12.0-16.0 [facility] ([place] Comment on above: Performed By: #### H CGQ #### [address] [address] MCH (RBC) [Entitic mass] 31.3 pg High 27.0-31.2 [facility] ([place] Comment on above: Performed By: #### H CGQ #### [address] [address] MCHC 34.9 G/dL Normal 33.0-37.0 [facility] ([place] Comment on above: Performed By: #### H CGQ #### [address] [address] MCV (RBC) [Entitic vol] 89.7 fL Normal 80.0-94.0 [facility] ([place] Comment on above: Performed By: #### H CGQ #### [address] [address] Platelet 195 10 3/mcL Normal 130-400 [facility] ([place] Comment on above: Performed By: #### H CGQ #### [facility] [address] [place], [place] [address] Platelet mean volume (Bld) [Entitic vol] 9.9 fL Normal 7.4-10.4 [facility] ([place] Comment on above: Performed By: #### H CGQ #### [place] [address] [place], [place] [address] RBC 3.54 10 6/mcL Low 4.20-5.40 [facility] ([place] Comment on above: Performed By: #### H CGQ #### [place] [address] [place], [place] [address] WBC 6.7 10 3/mcL Normal 4.6-10.8 [facility] ([place] Comment on above: Performed By: #### H CGQ #### [place] [address] [place], [place] [address] LABORATORYOrdered By: Penny Francois on 07-22-2023 Appearance (U) Slightly Cloudy *ABN* (07/22/23 6:26 PM) Invalid Interpretation Code Clear AO Auto Urine SS Bacteria LM.HPF (Urine sed) [#/Area] Trace /HPF Invalid Interpretation Code AO Auto Urine SS Bilirubin Ql (U) Negative (07/22/23 6:26 PM) Invalid Interpretation Code Negative AO Auto Urine SS Calcium oxalate crystals LM.HPF (Urine sed) [#/Area] 1 /[HPF] Invalid Interpretation Code AO Auto Urine SS Color (U) Yellow (07/22/23 6:26 PM) Invalid Interpretation Code AO Auto Urine SS Crystals.amorphous LM.HPF (Urine sed) [#/Area] 3 /[HPF] Invalid Interpretation Code AO Auto Urine SS Glucose Test strip (U) [Mass/Vol] Negative Invalid Interpretation Code Negative AO Auto Urine SS Hemoglobin Auto test strip (U) [Mass/Vol] Negative (07/22/23 6:26 PM) Invalid Interpretation Code Negative AO Auto Urine SS Ketones Ql (U) Trace mg/dL Invalid Interpretation Code Negative AO Auto Urine SS UA Leuk Est Negative (07/22/23 6:26 PM) Invalid Interpretation Code Negative AO Auto Urine SS UA Nitrite Negative (07/22/23 6:26 PM) Invalid Interpretation Code Negative AO Auto Urine SS UA pH 7.0 (07/22/23 6:26 PM) Invalid Interpretation Code 5.0 - 8.0 AO Auto Urine SS UA Protein Trace mg/dL Invalid Interpretation Code Negative AO Auto Urine SS UA RBC 0-5 /HPF Invalid Interpretation Code None Seen AO Auto Urine SS UA Spec Grav >=1.030 *ABN* (07/22/23 6:26 PM) Invalid Interpretation Code 1.015-1.025 AO Auto Urine SS UA Specimen Type Clean Catch (07/22/23 6:26 PM) Invalid Interpretation Code AO Auto Urine SS UA Squam Epithelial LOADED /HPF Invalid Interpretation Code None Seen AO Auto Urine SS UA Urobilinogen 0.2 E.U./dL Invalid Interpretation Code 0.2-1.0 AO Auto Urine SS WBC LM.HPF (Urine sed) [#/Area] 0-5 /HPF Invalid Interpretation Code None Seen AO Auto Urine SS Adzfj-1-Hgbdezhrhdotp.p lacental Ql (Vag fld) Negative (07/22/23 5:35 PM) Invalid Interpretation Code Negative AO Rapid Testing SS LABORATORYOrdered By: SYSTEM SYSTEM on 07-22-2023 Basophil, Absolute 0.0 103/mcL Invalid Interpretation Code 0.0 - 0.2 10^3/mcL AO Workflow SS Basophils/100 WBC (Bld) 0.3 % Invalid Interpretation Code 0.0 - 2.5 % AO Workflow SS Eosinophil, Absolute 0.0 103/mcL Invalid Interpretation Code 0.0 - 0.4 10^3/mcL AO Workflow SS Eosinophils/100 WBC (Bld) 0.3 % Invalid Interpretation Code 0.0 - 7.0 % AO Workflow SS Erythrocyte distribution width (RBC) [Ratio] 13.1 % Invalid Interpretation Code 11.5 - 14.5 % AO Workflow SS Hematocrit (Bld) [Volume fraction] 31.7 % Invalid Interpretation Code 37.0 - 47.0 % AO Workflow SS Hemoglobin (Bld) [Mass/Vol] 11.1 G/dL Invalid Interpretation Code 12.0 - 16.0 G/dL AO Workflow SS Lymphocyte, Absolute 1.6 103/mcL Invalid Interpretation Code 0.8 - 3.9 10^3/mcL AO Workflow SS Lymphocytes/100 WBC (Bld) 23.5 % Invalid Interpretation Code 10.0 - 50.0 % AO Workflow SS MCH (RBC) [Entitic mass] 31.3 pg Invalid Interpretation Code 27.0 - 31.2 pg AO Workflow SS MCHC 34.9 G/dL Invalid Interpretation Code 33.0 - 37.0 G/dL AO Workflow SS MCV (RBC) [Entitic vol] 89.7 fL Invalid Interpretation Code 80.0 - 94.0 fL AO Workflow SS Monocyte, Absolute 0.3 103/mcL Invalid Interpretation Code 0.2 - 1.0 10^3/mcL AO Workflow SS Monocytes/100 WBC (Bld) 4.9 % Invalid Interpretation Code 1.7 - 13.0 % AO Workflow SS Neutrophil, Absolute 4.8 103/mcL Invalid Interpretation Code 2.9 - 6.2 10^3/mcL AO Workflow SS Neutrophils/100 WBC (Bld) 71.0 % Invalid Interpretation Code 37.0 - 80.0 % AO Workflow SS Platelet mean volume (Bld) [Entitic vol] 9.9 fL Invalid Interpretation Code 7.4 - 10.4 fL AO Workflow SS Platelets (Bld) [#/Vol] 195 103/mcL Invalid Interpretation Code 130 - 400 10^3/mcL AO Workflow SS RBC (Bld) [#/Vol] 3.54 106/mcL Invalid Interpretation Code 4.20 - 5.40 10^6/mcL AO Workflow SS WBC (Bld) [#/Vol] 6.7 103/mcL Invalid Interpretation Code 4.6 - 10.8 10^3/mcL AO Workflow SS UAon 07-22-2023 Color (U) Yellow Normal [facility] ([place]) Comment on above: Performed By: #### L IP, CMP, CBC, GFR, TESSIE ROSS, ADIFF #### [address] [place], [place] [address] Glucose (U) [Mass/Vol] Negative Normal Negative [facility] ([place]) Comment on above: Performed By: #### L IP, CMP, CBC, GFR, TESSIE ROSS, ADIFF #### [address] [place], [place] [address] Ketones Ql (U) Trace Abnormal Negative [facility] ([place]) Comment on above: Performed By: #### L IP, CMP, CBC, GFR, TESSIE ROSS, ADIFF #### [address] [address] UA Appear Slightly Cloudy Abnormal Clear [facility] ([place] Comment on above: Performed By: #### L IP, CMP, CBC, GFR, ANEU, W, ADIFF #### [address] [address] UA Blood Negative Normal Negative [facility] ([place] Comment on above: Performed By: #### L IP, CMP, CBC, GFR, ANEU, W, ADIFF #### [address] [address] UA Leuk Est Negative Normal Negative [facility] ([place] Comment on above: Performed By: #### L IP, CMP, CBC, GFR, VANDANA, W, ADIFF #### [address] [address] UA Nitrite Negative Normal Negative [facility] ([place] Comment on above: Performed By: #### L IP, CMP, CBC, GFR, ANEU, W, ADIFF #### [address] [address] UA pH 7.0 Normal 5.0 - 8.0 [facility] ([place] Comment on above: Performed By: #### L IP, CMP, CBC, GFR, ANEU, W, ADIFF #### [address] [address] UA Protein Trace Normal Negative [facility] ([place] Comment on above: Performed By: #### L IP, CMP, CBC, GFR, ANEU, W, ADIFF #### [address] [address] UA Spec Grav >=1.030 Abnormal 1.015-1.025 [facility] ([place]) Comment on above: Performed By: #### L IP, CMP, CBC, GFR, ANEU, MDW, ADIFF #### [address] [address] UA Specimen Type Clean Catch Normal [facility] ([place] Comment on above: Performed By: #### L IP, CMP, CBC, GFR, ANEU, W, ADIFF #### [address] [address] UA Urobilinogen 0.2 E.U./dL Normal 0.2-1.0 [facility] ([place] Comment on above: Performed By: #### L IP, CMP, CBC, GFR, ANEU, MDW, ADIFF #### [address] [address] Urobilinogen (U) [Mass/Vol] Negative Normal Negative [facility] ([place] Comment on above: Performed By: #### L IP, CMP, CBC, GFR, ANEU, MDW, ADIFF #### [address] [address] .Auto Diffon 07-18-2023 Basophil, Absolute 0.0 10 3/mcL Normal 0.0-0.2 [facility] ([place] Comment on above: Performed By: #### G FR, ADIFF, BMP, ANEU, CBC #### [address] [address] Basophils/100 WBC (Bld) 0.2 % Normal 0.0-2.5 [facility] ([place]) Comment on above: Performed By: #### G FR, ADIFF, BMP, ANEU, CBC #### [address] [address] Eosinophil, Absolute 0.1 10 3/mcL Normal 0.0-0.4 [facility] ([place] Comment on above: Performed By: #### G FR, ADIFF, BMP, ANEU, CBC #### [address] [address] Eosinophils/100 WBC (Bld) 0.9 % Normal 0.0-7.0 [facility] ([place] Comment on above: Performed By: #### G FR, ADIFF, BMP, ANEU, CBC #### [address] [address] Lymphocyte, Absolute 1.6 10 3/mcL Normal 0.8-3.9 [facility] ([place] Comment on above: Performed By: #### G FR, ADIFF, BMP, ANEU, CBC #### [address] [address] Lymphocytes/100 WBC (Bld) 19.9 % Normal 10.0-50.0 [facility] ([place] Comment on above: Performed By: #### G FR, ADIFF, BMP, ANEU, CBC #### [address] [address] Monocyte, Absolute 0.5 10 3/mcL Normal 0.2-1.0 [facility] ([place]) Comment on above: Performed By: #### G FR, ADIFF, BMP, ANEU, CBC #### [address] [address] Monocytes/100 WBC (Bld) 5.8 % Normal 1.7-13.0 [facility] ([place]) Comment on above: Performed By: #### G FR, ADIFF, BMP, ANEU, CBC #### [address] [address] Neutrophils/100 WBC (Bld) 73.2 % Normal 37.0-80.0 [facility] ([place]) Comment on above: Performed By: #### G FR, ADIFF, BMP, ANEU, CBC #### [address] [address] .GFRon 07-18-2023 GFR Non- 140 ml/min/1.73sqm Normal [facility] ([place]) Comment on above: Result Comment: GFR Population mean for , Non- Americans Ages 20-29 = 116 mL/min/1.73 sq.m. Ages 30-39 = 107 mL/min/1.73 sq.m. Ages 40-49 = 99 mL/min/1.73 sq.m. Ages 50-59 = 93 mL/min/1.73 sq.m. Ages 60-69 = 85 mL/min/1.73 sq.m. Ages 70+ = 75 mL/min/1.73 sq.m. Chronic Kidney Disease: Less than 60 mL/min/1.73 square meters End Stage Renal Disease: Less than 15 mL/min/1.73 square meters Performed By: #### G FR, ADIFF, BMP, ANEU, CBC #### [address] [address] GFR 169 ml/min/1.73sqm Normal [facility] ([place]) Comment on above: Result Comment: GFR Population mean for , Non- Americans Ages 20-29 = 116 mL/min/1.73 sq.m. Ages 30-39 = 107 mL/min/1.73 sq.m. Ages 40-49 = 99 mL/min/1.73 sq.m. Ages 50-59 = 93 mL/min/1.73 sq.m. Ages 60-69 = 85 mL/min/1.73 sq.m. Ages 70+ = 75 mL/min/1.73 sq.m. Chronic Kidney Disease: Less than 60 mL/min/1.73 square meters End Stage Renal Disease: Less than 15 mL/min/1.73 square meters Performed By: #### G FR, ADIFF, BMP, ANEU, CBC #### [address] [address] .NEUABSon 07-18-2023 Neutrophil, Absolute 5.8 10 3/mcL Normal 2.9-6.2 [facility] ([place] Comment on above: Performed By: #### G FR, ADIFF, BMP, ANEU, CBC #### [address] [address] AMNIon 07-18-2023 Amnisure Negative Normal Negative [facility] ([place] Comment on above: Performed By: #### L IP, CMP, CBC, GFR, ANEU, MDW, ADIFF #### [address] [address] BMPon 07-18-2023 BUN/Creatinine Ratio 13 ratio Normal 7-27 [facility] ([place] Comment on above: Performed By: #### G FR, ADIFF, BMP, ANEU, CBC #### [place] [address] Calcium [Mass/Vol] 8.6 mg/dL Normal 8.4-10.2 [facility] ([place]) Comment on above: Performed By: #### G FR, ADIFF, BMP, ANEU, CBC #### [address] [address] Chloride [Moles/Vol] 104 mmol/L Normal 98-107 [facility] ([place] Comment on above: Performed By: #### G FR, ADIFF, BMP, ANEU, CBC #### [address] [address] CO2 [Moles/Vol] 22 mmol/L Normal 22-29 [facility] ([place] Comment on above: Performed By: #### G FR, ADIFF, BMP, ANEU, CBC #### [address] [address] Creatinine [Mass/Vol] 0.55 mg/dL Normal 0.55-1.02 [facility] ([place]) Comment on above: Performed By: #### G FR, ADIFF, BMP, ANEU, CBC #### [address] [address] Electrolyte Balance 11.0 mEq/L Normal 4.0-15.0 [facility] ([place]) Comment on above: Performed By: #### G FR, ADIFF, BMP, ANEU, CBC #### [address] [address] Glucose [Mass/Vol] 99 mg/dL Normal 70-105 [facility] ([place] Comment on above: Performed By: #### G FR, ADIFF, BMP, ANEU, CBC #### [address] [address] Potassium [Moles/Vol] 4.4 mmol/L Normal 3.5-5.1 [facility] ([place] Comment on above: Performed By: #### G FR, ADIFF, BMP, ANEU, CBC #### [address] [address] Sodium [Moles/Vol] 137 mmol/L Normal 136-145 [facility] ([place] Comment on above: Performed By: #### G FR, ADIFF, BMP, ANEU, CBC #### [address] [address] Urea nitrogen [Mass/Vol] 7 mg/dL Normal 7-18 [facility] ([place]) Comment on above: Performed By: #### G FR, ADIFF, BMP, ANEU, CBC #### [place] [address] CBCon 07-18-2023 Erythrocyte distribution width (RBC) [Ratio] 13.2 % Normal 11.5-14.5 [facility] ([place] Comment on above: Performed By: #### G FR, ADIFF, BMP, ANEU, CBC #### [place] [address] Hematocrit (Bld) [Volume fraction] 32.8 % Low 37.0-47.0 [facility] ([place] Comment on above: Performed By: #### G FR, ADIFF, BMP, ANEU, CBC #### [place] [address] Hgb 11.4 G/dL Low 12.0-16.0 [facility] ([place] Comment on above: Performed By: #### Meg FR, ADIFF, BMP, ANEU, CBC #### [place] [address] MCH (RBC) [Entitic mass] 31.5 pg High 27.0-31.2 [facility] ([place] Comment on above: Performed By: #### G FR, ADIFF, BMP, ANEU, CBC #### [place] [address] MCHC 34.7 G/dL Normal 33.0-37.0 [facility] ([place] Comment on above: Performed By: #### G FR, ADIFF, BMP, ANEU, CBC #### [place] [address] MCV (RBC) [Entitic vol] 90.7 fL Normal 80.0-94.0 [facility] ([place]) Comment on above: Performed By: #### G FR, ADIFF, BMP, ANEU, CBC #### [place] [address] Platelet 225 10 3/mcL Normal 130-400 [facility] ([place] Comment on above: Performed By: #### G FR, ADIFF, BMP, ANEU, CBC #### [facility] [address] [place] [address] Platelet mean volume (Bld) [Entitic vol] 9.4 fL Normal 7.4-10.4 [facility] ([place]) Comment on above: Performed By: #### G FR, ADIFF, BMP, ANEU, CBC #### [place] [id number] [place] [address] RBC 3.61 10 6/mcL Low 4.20-5.40 [facility] ([place] Comment on above: Performed By: #### G FR, ADIFF, BMP, ANEU, CBC #### [address] [place] [address] [place] [address] WBC 7.9 10 3/mcL Normal 4.6-10.8 [facility] ([place] Comment on above: Performed By: #### G FR, ADIFF, BMP, ANEU, CBC #### [place] [address] LABORATORYOrdered By: Heide Au on 07-18-2023 [id number].p lacental Ql (Vag fld) Negative (07/18/23 5:11 AM) Invalid Interpretation Code Negative AO Rapid Testing SS Appearance (U) Clear (07/18/23 5:11 AM) Invalid Interpretation Code Clear AO Auto Urine SS Bilirubin Ql (U) Negative (07/18/23 5:11 AM) Invalid Interpretation Code Negative AO Auto Urine SS Color (U) Yellow (07/18/23 5:11 AM) Invalid Interpretation Code AO Auto Urine SS Glucose Test strip (U) [Mass/Vol] Negative Invalid Interpretation Code Negative AO Auto Urine SS Hemoglobin Auto test strip (U) [Mass/Vol] Negative (07/18/23 5:11 AM) Invalid Interpretation Code Negative AO Auto Urine SS Ketones Ql (U) Negative Invalid Interpretation Code Negative AO Auto Urine SS UA Leuk Est Negative (07/18/23 5:11 AM) Invalid Interpretation Code Negative AO Auto Urine SS UA Nitrite Negative (07/18/23 5:11 AM) Invalid Interpretation Code Negative AO Auto Urine SS UA pH 7.0 (07/18/23 5:11 AM) Invalid Interpretation Code 5.0 - 8.0 AO Auto Urine SS UA Protein Negative Invalid Interpretation Code Negative AO Auto Urine SS UA Spec Grav 1.020 (07/18/23 5:11 AM) Invalid Interpretation Code 1.015-1.025 AO Auto Urine SS UA Specimen Type Void (07/18/23 5:11 AM) Invalid Interpretation Code AO Auto Urine SS UA Urobilinogen 0.2 E.U./dL Invalid Interpretation Code 0.2-1.0 AO Auto Urine SS LABORATORYOrdered By: SYSTEM SYSTEM on 07-18-2023 Basophil, Absolute 0.0 103/mcL Invalid Interpretation Code 0.0 - 0.2 10^3/mcL AO Workflow SS Basophils/100 WBC (Bld) 0.2 % Invalid Interpretation Code 0.0 - 2.5 % AO Workflow SS Calcium [Mass/Vol] 8.6 mg/dL Invalid Interpretation Code 8.4 - 10.2 mg/dL AO ADM SS Chloride [Moles/Vol] 104 mmol/L Invalid Interpretation Code 98 - 107 mmol/L AO ADM SS CO2 [Moles/Vol] 22 mmol/L Invalid Interpretation Code 22 - 29 mmol/L AO ADM SS Creatinine [Mass/Vol] 0.55 mg/dL Invalid Interpretation Code 0.55 - 1.02 mg/dL AO ADM SS Electrolyte Balance 11.0 mEq/L Invalid Interpretation Code 4.0 - 15.0 mEq/L AO ADM SS Eosinophil, Absolute 0.1 103/mcL Invalid Interpretation Code 0.0 - 0.4 10^3/mcL AO Workflow SS Eosinophils/100 WBC (Bld) 0.9 % Invalid Interpretation Code 0.0 - 7.0 % AO Workflow SS Erythrocyte distribution width (RBC) [Ratio] 13.2 % Invalid Interpretation Code 11.5 - 14.5 % AO Workflow SS GFR/1.73 sq M.predicted among blacks MDRD (S/P/Bld) [Vol rate/Area] 169 ml/min/1.73sqm Invalid Interpretation Code AO Chemistry S Comment on above: Interpretive Data: GFR Population mean for , Non- Americans Ages 20-29 = 116 mL/min/1.73 sq.m. Ages 30-39 = 107 mL/min/1.73 sq.m. Ages 40-49 = 99 mL/min/1.73 sq.m. Ages 50-59 = 93 mL/min/1.73 sq.m. Ages 60-69 = 85 mL/min/1.73 sq.m. Ages 70+ = 75 mL/min/1.73 sq.m. Chronic Kidney Disease: Less than 60 mL/min/1.73 square meters End Stage Renal Disease: Less than 15 mL/min/1.73 square meters GFR/1.73 sq M.predicted among non-blacks MDRD (S/P/Bld) [Vol rate/Area] 140 ml/min/1.73sqm Invalid Interpretation Code AO Chemistry S Comment on above: Interpretive Data: GFR Population mean for , Non- Americans Ages 20-29 = 116 mL/min/1.73 sq.m. Ages 30-39 = 107 mL/min/1.73 sq.m. Ages 40-49 = 99 mL/min/1.73 sq.m. Ages 50-59 = 93 mL/min/1.73 sq.m. Ages 60-69 = 85 mL/min/1.73 sq.m. Ages 70+ = 75 mL/min/1.73 sq.m. Chronic Kidney Disease: Less than 60 mL/min/1.73 square meters End Stage Renal Disease: Less than 15 mL/min/1.73 square meters Glucose [Mass/Vol] 99 mg/dL Invalid Interpretation Code 70 - 105 mg/dL AO ADM SS Hematocrit (Bld) [Volume fraction] 32.8 % Invalid Interpretation Code 37.0 - 47.0 % AO Workflow SS Hemoglobin (Bld) [Mass/Vol] 11.4 G/dL Invalid Interpretation Code 12.0 - 16.0 G/dL AO Workflow SS Lymphocyte, Absolute 1.6 103/mcL Invalid Interpretation Code 0.8 - 3.9 10^3/mcL AO Workflow SS Lymphocytes/100 WBC (Bld) 19.9 % Invalid Interpretation Code 10.0 - 50.0 % AO Workflow SS MCH (RBC) [Entitic mass] 31.5 pg Invalid Interpretation Code 27.0 - 31.2 pg AO Workflow SS MCHC 34.7 G/dL Invalid Interpretation Code 33.0 - 37.0 G/dL AO Workflow SS MCV (RBC) [Entitic vol] 90.7 fL Invalid Interpretation Code 80.0 - 94.0 fL AO Workflow SS Monocyte, Absolute 0.5 103/mcL Invalid Interpretation Code 0.2 - 1.0 10^3/mcL AO Workflow SS Monocytes/100 WBC (Bld) 5.8 % Invalid Interpretation Code 1.7 - 13.0 % AO Workflow SS Neutrophil, Absolute 5.8 103/mcL Invalid Interpretation Code 2.9 - 6.2 10^3/mcL AO Workflow SS Neutrophils/100 WBC (Bld) 73.2 % Invalid Interpretation Code 37.0 - 80.0 % AO Workflow SS Platelet mean volume (Bld) [Entitic vol] 9.4 fL Invalid Interpretation Code 7.4 - 10.4 fL AO Workflow SS Platelets (Bld) [#/Vol] 225 103/mcL Invalid Interpretation Code 130 - 400 10^3/mcL AO Workflow SS Potassium [Moles/Vol] 4.4 mmol/L Invalid Interpretation Code 3.5 - 5.1 mmol/L AO ADM SS RBC (Bld) [#/Vol] 3.61 106/mcL Invalid Interpretation Code 4.20 - 5.40 10^6/mcL AO Workflow SS Sodium [Moles/Vol] 137 mmol/L Invalid Interpretation Code 136 - 145 mmol/L AO ADM SS Urea nitrogen [Mass/Vol] 7 mg/dL Invalid Interpretation Code 7 - 18 mg/dL AO ADM SS Urea nitrogen/Creatinine [Mass ratio] 13 ratio Invalid Interpretation Code 7 - 27 ratio AO ADM SS WBC (Bld) [#/Vol] 7.9 103/mcL Invalid Interpretation Code 4.6 - 10.8 10^3/mcL AO Workflow SS UAon 07-18-2023 Color (U) Yellow Normal [facility] ([place]) Comment on above: Performed By: #### L IP, CMP, CBC, GFR, VANDANA, TESSIE, ADIFF #### [address] [address] Glucose (U) [Mass/Vol] Negative Normal Negative [facility] ([place]) Comment on above: Performed By: #### L IP, CMP, CBC, GFR, TESSIE ROSS, ADIFF #### [address] [place], [place] [address] Ketones Ql (U) Negative Normal Negative [facility] ([place]) Comment on above: Performed By: #### L IP, CMP, CBC, GFR, VANDANA, TESSIE, ADIFF #### [address] [address] UA Appear Clear Normal Clear [facility] ([place] Comment on above: Performed By: #### L IP, CMP, CBC, GFR, ANEU, MDW, ADIFF #### [address] [address] UA Blood Negative Normal Negative [facility] ([place] Comment on above: Performed By: #### L IP, CMP, CBC, GFR, ANEU, MDW, ADIFF #### [address] [address] UA Leuk Est Negative Normal Negative [facility] ([place] Comment on above: Performed By: #### L IP, CMP, CBC, GFR, ANEU, MDW, ADIFF #### [place] [address] UA Nitrite Negative Normal Negative [facility] ([place] Comment on above: Performed By: #### L IP, CMP, CBC, GFR, ANEU, MDW, ADIFF #### [place] [address] UA pH 7.0 Normal 5.0 - 8.0 [facility] ([place] Comment on above: Performed By: #### L IP, CMP, CBC, GFR, ANEU, MDW, ADIFF #### [place] [address] UA Protein Negative Normal Negative [facility] ([place] Comment on above: Performed By: #### L IP, CMP, CBC, GFR, ANEU, MDW, ADIFF #### [place] [address] UA Spec Grav 1.020 Normal 1.015-1.025 [facility] ([place] Comment on above: Performed By: #### L IP, CMP, CBC, GFR, ANEU, MDW, ADIFF #### [address] [address] UA Specimen Type Void Normal [facility] ([place] Comment on above: Performed By: #### L IP, CMP, CBC, GFR, ANEU, MDW, ADIFF #### [place] [address] UA Urobilinogen 0.2 E.U./dL Normal 0.2-1.0 [facility] ([place] Comment on above: Performed By: #### L IP, CMP, CBC, GFR, ANEU, MDW, ADIFF #### [facility] [place] [address] [place], [place] [address] Urobilinogen (U) [Mass/Vol] Negative Normal Negative [facility] ([place] Comment on above: Performed By: #### L IP, CMP, CBC, GFR, ANEU, MDW, ADIFF #### [facility] [place] [address] [place], [place] [address] LABORATORYOrdered By: SYSTEM SYSTEM on 06-15-2023 Albumin BCP dye [Mass/Vol] 2.9 G/dL Invalid Interpretation Code 3.5 - 5.0 G/dL AO ADM SS Albumin/Globulin [Mass ratio] 0.9 {ratio} Invalid Interpretation Code 1.1 - 2.5 ratio AO ADM SS ALP [Catalytic activity/Vol] 47 U/L Invalid Interpretation Code 40 - 135 U/L AO ADM SS ALT With P-5'-P [Catalytic activity/Vol] 9 U/L Invalid Interpretation Code 14 - 59 U/L AO ADM SS AST With P-5'-P [Catalytic activity/Vol] 9 U/L Invalid Interpretation Code 10 - 40 U/L AO ADM SS Bilirubin [Mass/Vol] 0.2 mg/dL Invalid Interpretation Code 0.2 - 1.0 mg/dL AO ADM SS Comment on above: Interpretive Data: U se of this assay is not recommended for patients undergoing treatment with eltrombopag due to the potential for falsely elevated results. Calcium [Mass/Vol] 8.7 mg/dL Invalid Interpretation Code 8.4 - 10.2 mg/dL AO ADM SS Chloride [Moles/Vol] 102 mmol/L Invalid Interpretation Code 98 - 107 mmol/L AO ADM SS CO2 [Moles/Vol] 27 mmol/L Invalid Interpretation Code 22 - 29 mmol/L AO ADM SS Creatinine [Mass/Vol] 0.63 mg/dL Invalid Interpretation Code 0.55 - 1.02 mg/dL AO ADM SS Electrolyte Balance 8.0 mEq/L Invalid Interpretation Code 4.0 - 15.0 mEq/L AO ADM SS GFR/1.73 sq M.predicted among blacks MDRD (S/P/Bld) [Vol rate/Area] 146 ml/min/1.73sqm Invalid Interpretation Code AO Chemistry S Comment on above: Interpretive Data: GFR Population mean for , Non- Americans Ages 20-29 = 116 mL/min/1.73 sq.m. Ages 30-39 = 107 mL/min/1.73 sq.m. Ages 40-49 = 99 mL/min/1.73 sq.m. Ages 50-59 = 93 mL/min/1.73 sq.m. Ages 60-69 = 85 mL/min/1.73 sq.m. Ages 70+ = 75 mL/min/1.73 sq.m. Chronic Kidney Disease: Less than 60 mL/min/1.73 square meters End Stage Renal Disease: Less than 15 mL/min/1.73 square meters GFR/1.73 sq M.predicted among non-blacks MDRD (S/P/Bld) [Vol rate/Area] 120 ml/min/1.73sqm Invalid Interpretation Code AO Chemistry S Comment on above: Interpretive Data: GFR Population mean for , Non- Americans Ages 20-29 = 116 mL/min/1.73 sq.m. Ages 30-39 = 107 mL/min/1.73 sq.m. Ages 40-49 = 99 mL/min/1.73 sq.m. Ages 50-59 = 93 mL/min/1.73 sq.m. Ages 60-69 = 85 mL/min/1.73 sq.m. Ages 70+ = 75 mL/min/1.73 sq.m. Chronic Kidney Disease: Less than 60 mL/min/1.73 square meters End Stage Renal Disease: Less than 15 mL/min/1.73 square meters Globulin 3.4 G/dL Invalid Interpretation Code AO ADM SS Potassium [Moles/Vol] 3.6 mmol/L Invalid Interpretation Code 3.5 - 5.1 mmol/L AO ADM SS Protein [Mass/Vol] 6.3 G/dL Invalid Interpretation Code 6.4 - 8.2 G/dL AO ADM SS Sodium [Moles/Vol] 137 mmol/L Invalid Interpretation Code 136 - 145 mmol/L AO ADM SS Urea nitrogen [Mass/Vol] 7 mg/dL Invalid Interpretation Code 7 - 18 mg/dL AO ADM SS Urea nitrogen/Creatinine [Mass ratio] 11 ratio Invalid Interpretation Code 27 ratio AO ADM SS Laboratory - Chemistry and C hemistry - challengeOrdered By: SYSTEM SYSTEM on 06-15-2023 Glucose [Mass/Vol] 149 mg/dL Invalid Interpretation Code 70 - 140 mg/dL AO ADM SS Progress Noteon 06-15-2023 Gizzard Peeler Authentication Interface Message Text [facility] - at [place] DR. BENÍTEZ OFFICE VISIT NOTE DOS: 06/15/2023 06/15/2023 Chief Complaint She presents for review of progress in thus far and for comprehensive review of her maternal -obstetric- risks in this . The reasons for the visit are as highlighted in the concluding summary communication to frame bender which is my problem-based office review. History of Present Illness Gabrielle is a 22 y.o. female at 17w2d. Here for an office visit with was multifaceted and the history of present illness is itemized/organized under applicable individualized problem list assessments as listed below. Obstetric History OB History Para Term AB Living 3 2 SAB IAB Ectopic Multiple Live Births 1 # Outcome Date GA Lbr Felix/2nd Weight Sex Delivery Anes PTL Lv 3 Current 2 AB 07/31/22 7w0d 1 SAB 03/04/22 10w5d - I reviewed it at patient encounter and pertinent aspects are integrated into the below problem list-based assessment Past Medical History Past Medical History: Diagnosis Date Depression Fatty liver Told by family 3 hrs ago per labs and US Headache History of PCOS Insulin resistance Migraine headache Improved over the years. Onset age 18. May have one every couple of months Obesity Rh incompatibility affecting - I reviewed it at patient encounter and pertinent aspects are integrated into the below problem list-based assessment Social History - I reviewed it at patient encounter and pertinent aspects are integrated into the below problem list-based assessment Family History - I reviewed it at patient encounter, including screening genetic pedigree as available, and pertinent aspects are integrated into the below problem list-based assessment Medications and Allergies . Allergies Allergen Reactions Imitrex [Sumatriptan] Rash hot and sweaty and sleepy - I reviewed it at patient encounter and are integrated into the below problem list-based assessment. Allergies were reviewed Laboratory Studies and Imaging studies - I reviewed it at patient encounter and pertinent aspects are integrated into assessments. Vitals BP 128/61 Pulse 96 Temp 36.8 C (98.3 F) Wt (!) 115.7 kg (255 lb 1.6 oz) LMP 02/05/2023 SpO2 99% - heart rate as per imaging report today, as applicable and available. ASSESSMENT AND PLAN After integrating maternal and obstetric and considerations, my recommendations are as assembled. Active Non-Hospital Problems Diagnosis Date Noted Care plan discussed with patient 06/07/2023 06/07/2023 - Office Visit - MD Chirag: 16w1d . Review of Medications: She is on - PNV one QD. Low dose daily Aspirin. On vaginal 200 mg. progesterone based on abbreviated cervical length at US outside [facility]. Metformin 500 mg daily and today I instructed her to discontinue it as it is no indication as presently it has no indication. Scheduled follow-up with [facility] @ [place]: Follow-up TV with office visit in 1 week and we will arrange for 1 hour Glucola. She stopped metformin today. Subsequent to that ultrasound to complete anatomy survey and TV scan at 20 weeks. We will also schedule her ultrasound for growth assessment at 32 and 36 weeks given her BMI and limitations of clinical assessment. Care with Recharger: Please arrange for weekly testing at 34 weeks based on BMI. Delivery: [facility] L[facility]D. Recharger- Dr Campuzano. Obstetric goal for vaginal delivery at complete full term; however, unfolding and obstetric condition stands to impact upon it. 06/15/2023 - Office Visit - MD Chirag: 17w2d . Previously established [facility] care plan reviewed as below: Medication Review: Medication usage was reviewed. She has stopped metformin. Care Synopsis: Today we vivi Glucola as well as complete metabolic panel given history of fatty liver so that at baseline can be established for obstetric care. She has follow-up ultrasound with us at 20 weeks on July 05, 2023. care, antepartum 06/07/2023 06/07/2023 - Office Visit - MD Chirag: 16w1d . Past Obstetric History: Nulliparous. Review of stable Co-Morbidities: She carries a diagnosis of fatty liver diagnosed 3 years ago most likely secondary to BMI. History of asthma but she has not required rescue inhaler for a long time. History of irritable bowel syndrome but presently it is stable. She has no adverse lifestyle. Visit for Care: It was reviewed. Low risk NIPT. Negative Horizon 14. Her blood type is Rh- and she received RhoGAM on 03/26/2023 and 05/24/2023 for spotting. History of migraines but they are rare. Covid precautions are in place. Her BP is 121/66. She presently has no complaint. She provides no history of uterine contractions/cramping, leakage of fluid, or vaginal bleeding. 06/15/2023 - Office Visit - (more content not included)... Normal [facility] Progress Noteon 06-07-2023 Gizzard Peeler Authentication Interface Message Text [facility] - at [place] DR. BENÍTEZ OFFICE VISIT NOTE DOS: 06/07/2023 06/07/2023 Chief Complaint She presents for review of progress in thus far and for comprehensive review of her maternal -obstetric- risks in this . The reasons for the visit are as highlighted in the concluding summary communication to frame bender which is my problem-based office review. History of Present Illness Gabrielle is a 22 y.o. female at 16w1d. Here for an office visit with was multifaceted and the history of present illness is itemized/organized under applicable individualized problem list assessments as listed below. Obstetric History OB History Para Term AB Living 3 2 SAB IAB Ectopic Multiple Live Births 1 # Outcome Date GA Lbr Felix/2nd Weight Sex Delivery Anes PTL Lv 3 Current 2 AB 07/31/22 7w0d 1 SAB 03/04/22 10w5d - I reviewed it at patient encounter and pertinent aspects are integrated into the below problem list-based assessment Past Medical History Past Medical History: Diagnosis Date Depression Fatty liver Told by family 3 hrs ago per labs and US Headache History of PCOS Insulin resistance Migraine headache Improved over the years. Onset age 18. May have one every couple of months Obesity Rh incompatibility affecting - I reviewed it at patient encounter and pertinent aspects are integrated into the below problem list-based assessment Social History - I reviewed it at patient encounter and pertinent aspects are integrated into the below problem list-based assessment Family History - I reviewed it at patient encounter, including screening genetic pedigree as available, and pertinent aspects are integrated into the below problem list-based assessment Medications and Allergies . Allergies Allergen Reactions Imitrex [Sumatriptan] Rash hot and sweaty and sleepy - I reviewed it at patient encounter and are integrated into the below problem list-based assessment. Allergies were reviewed Laboratory Studies and Imaging studies - I reviewed it at patient encounter and pertinent aspects are integrated into assessments. Vitals BP 121/66 Pulse 100 Temp 37 C (98.6 F) Resp 18 Ht 160 cm Wt (!) 115.2 kg (253 lb 14.4 oz) LMP 02/05/2023 SpO2 97% BMI 44.98 kg/m - heart rate as per imaging report today, as applicable and available. ASSESSMENT AND PLAN After integrating maternal and obstetric and considerations, my recommendations are as assembled. Active Non-Hospital Problems Diagnosis Date Noted Care plan discussed with patient 06/07/2023 06/07/2023 - Office Visit - MD Chirag: 16w1d . Review of Medications: She is on - PNV one QD. Low dose daily Aspirin. Metformin 500 mg daily and today I instructed her to discontinue it as it is no indication as presently it has no indication. ==> Today, we electronically scribed azithromycin to 50 mg daily for 6 days Scheduled follow-up with [facility] @ [place]: Follow-up TV with office visit in 1 week and we will arrange for 1 hour Glucola. She stopped metformin today. Subsequent to that ultrasound to complete anatomy survey and TV scan at 20 weeks. We will also schedule her ultrasound for growth assessment at 32 and 36 weeks given her BMI and limitations of clinical assessment. Care with Recharger: Please arrange for weekly testing at 34 weeks based on BMI. Delivery: [facility] L[facility]D. Recharger- Dr Campuzano. Obstetric goal for vaginal delivery at complete full term; however, unfolding and obstetric condition stands to impact upon it. care, antepartum 06/07/2023 06/07/2023 - Office Visit - MD Chirag: 16w1d . Past Obstetric History: Nulliparous. Review of stable Co-Morbidities: She carries a diagnosis of fatty liver diagnosed 3 years ago most likely secondary to BMI. History of asthma but she has not required rescue inhaler for a long time. History of atrial bowel syndrome but presently it is stable. She has no adverse lifestyle. Visit for Care: It was reviewed. Low risk NIPT. Negative Horizon 14. Her blood type is Rh- and she received RhoGAM on 03/26/2023 and 05/24/2023 for spotting. History of migraines but they are rare. Covid precautions are in place. Her BP is 121/66. She presently has no complaint. She provides no history of uterine contractions/cramping, leakage of fluid, or vaginal bleeding. Cervical shortening in in second trimester 06/07/2023 06/07/2023 - Office Visit - MD Chirag: 16w1d . Reason for referral was: Abbreviated endocervical canal: Today, at our discussion, we reviewed: Normal cervical length today and I reviewed the imaging study on her iPhone that revealed cervical shortening and it would appear that the proximal endocervical canal may be already consumed by narrow funnel (more content not included)... Normal [facility] LABORATORYOrdered By: Yanely Funk on 05-24-2023 Appearance (U) Slightly Cloudy *ABN* (05/24/23 2:19 PM) Invalid Interpretation Code Clear AO Auto Urine SS Bacteria LM.HPF (Urine sed) [#/Area] Trace /HPF Invalid Interpretation Code AO Auto Urine SS Bilirubin Ql (U) Negative (05/24/23 2:19 PM) Invalid Interpretation Code Negative AO Auto Urine SS Color (U) Yellow (05/24/23 2:19 PM) Invalid Interpretation Code AO Auto Urine SS Glucose Test strip (U) [Mass/Vol] Negative Invalid Interpretation Code Negativemg/ dL AO Auto Urine SS Hemoglobin Auto test strip (U) [Mass/Vol] Negative (05/24/23 2:19 PM) Invalid Interpretation Code Negative AO Auto Urine SS Ketones Ql (U) Negative Invalid Interpretation Code Negativemg/ dL AO Auto Urine SS UA Leuk Est Negative (05/24/23 2:19 PM) Invalid Interpretation Code Negative AO Auto Urine SS UA Nitrite Negative (05/24/23 2:19 PM) Invalid Interpretation Code Negative AO Auto Urine SS UA pH 8.5 *ABN* (05/24/23 2:19 PM) Invalid Interpretation Code 5.0 - 8.0 AO Auto Urine SS UA Protein Negative Invalid Interpretation Code Negativemg/ dL AO Auto Urine SS UA RBC 0-5 /HPF Invalid Interpretation Code None Seen/HPF AO Auto Urine SS UA Spec Grav 1.020 (05/24/23 2:19 PM) Invalid Interpretation Code 1.015-1.025 AO Auto Urine SS UA Specimen Type Not Given (05/24/23 2:19 PM) Invalid Interpretation Code AO Auto Urine SS UA Squam Epithelial 0-5 /HPF Invalid Interpretation Code None Seen/HPF AO Auto Urine SS UA Urobilinogen 0.2 E.U./dL Invalid Interpretation Code 0.2-1.0E.U. /dL AO Auto Urine SS WBC LM.HPF (Urine sed) [#/Area] 0-5 /HPF Invalid Interpretation Code None Seen/HPF AO Auto Urine SS LABORATORYOrdered By: SYSTEM SYSTEM on 05-24-20[place] [address].6 m[IU]/mL Invalid Interpretation Code AO ADM SS Absolute lymphocyte countOrd ered By: Deuce Levy on 05-20-2023 Lymphocytes Auto (Unsp spec) [#/Vol] 2.54 10*3/uL 0.83-4.51 [facility] Amorphous sediment detection in urine sediment by light microscopyOrdered By: Deuce Levy on 05-20-2023 Amorphous sediment LM Ql (Urine sed) 1+ [facility] Basophil percentageOrdered B y: Deuce Levy on 05-20-2023 Basophils/100 WBC (Bld) 0.2 % 0-1 [facility] Eosinophils/100 WBC (Bld) 0.7 % 0-5 [facility] Neutrophils (Bld) [#/Vol] 7.0 10*3/uL 2.0-7.7 [facility] Neutrophils/100 WBC (Bld) 67.7 % 47-70 [facility] WBC (Bld) [#/Vol] 10.3 10*3/uL 4.4-11.0 [facility] Basophil percentage 0-5 SEEN /hpf 0-5 [facility] Bilirubin Test strip Ql (U)O rdered By: Deuce Levy on 05-20-2023 Bilirubin Ql (U) Negative Negative [facility] Blood erythrocytes count (nu mber/volume)Ordered By: Deuce Levy on 05-20-2023 RBC (Bld) [#/Vol] 3.86 10*6/uL 4.2-5.4 [facility] Blood hemoglobin measurement (mass/volume)Ordered By: Deuce Levy on 05-20-2023 Hemoglobin (Bld) [Mass/Vol] 12.1 g/dL 12.0-15.0 [facility] Blood lymphocytes/100 leukoc ytesOrdered By: Deuce Levy on 05-20-2023 Lymphocytes/100 WBC (Bld) 24.6 % 19-41 [facility] Blood monocytes/100 leukocyt esOrdered By: Deuce Levy on 05-20-2023 Monocytes/100 WBC (Bld) 5.4 % 0-10 [facility] Blood platelet mean volumeOr dered By: Deuce Levy on 05-20-2023 Platelet mean volume (Bld) [Entitic vol] 11.6 fL 6.2-12.0 [facility] Determination of erythrocyte mean corpuscular volume (MCV)Ordered By: Deuce Levy on 05-20-2023 MCV (RBC) [Entitic vol] 91.2 fL 81-99 [facility] Hematocrit Auto (Bld) [Volum e fraction]Ordered By: Deuce Levy on 05-20-2023 Hematocrit (Bld) [Volume fraction] 35.2 % 37-47 [facility] Ketones Test strip Ql (U)Ord ered By: Deuce Levy on 05-20-2023 Ketones Ql (U) Negative Negative [facility] Laboratory - Hematology and Cell countsOrdered By: Deuce Levy on 05-20-2023 Erythrocyte distribution width (RBC) [Entitic vol] 42.7 fL 35.1-43.9 [facility] Erythrocyte distribution width (RBC) [Ratio] 13.0 % 11.6-14.6 [facility] Immature granulocytes/100 WBC (Bld) 1.400 % 0.0-0.9 [facility] Comment on above: IG% - Immature Granu locytes (promyelocytes, myelocytes and metamyelocytes) > 1% indicates that a LEFT SHIFT is Present. MCH (RBC) [Entitic mass] 31.3 pg 27.0-32.0 [facility] Nucleated RBC/100 WBC (Bld) [Ratio] 0 % 0-5 [facility] MCHC Auto (RBC) [Mass/Vol]Or dered By: Deuce Levy on 05-20-2023 MCHC (RBC) [Mass/Vol] 34.4 g/dL 32-36 [facility] Mucus LM Ql (Urine sed)Order ed By: Deuce Levy on 05-20-2023 Mucus Ql (Urine sed) 0 SEEN /hpf [facility] Nitrite Test strip Ql (U)Ord ered By: Deuce Levy on 05-20-2023 Nitrite Ql (U) Negative Negative [facility] Platelets bldOrdered By: Estrella Levy on 05-20-2023 Platelets (Bld) [#/Vol] 278 10*3/uL 150-450 [facility] Protein Test strip Ql (U)Ord ered By: Deuce Levy on 05-20-2023 Protein Ql (U) Negative Negative [facility] Serum or plasma choriogonado tropin detectionOrdered By: Deuce Levy on 05-20-2023 HCG ( test) [place]l [address] mIU/mL <4 [facility] Comment on above: hCG levels with Gest ational AgeGestational Age hCG mIU/mL (IU/L)0.2 - 1 week 5 - 501-2 weeks 50 - 5002-3 weeks 100 - 34075-8 weeks 500 - 982748-4 weeks 1000 - 403858-6 weeks 74510 - 100,0006-8 weeks 93348 - 200,0002-3 months 41661 - 100,000 Squamous epithelial cells de tection in urine sediment by light microscopyOrdered By: Deuce Levy on 05-20-2023 Epithelial cells.squamous LM Ql (Urine sed) 0-5 SEEN /hpf 5-10 [facility] Urine blood detectionOrdered By: Deuce Levy on 05-20-2023 RBC Ql (U) Negative Negative [facility] RBC Ql (U) 0 SEEN /hpf 0-5 [facility] Urine clarityOrdered By: Estrella Levy on 05-20-2023 Clarity (U) Clear Clear [facility] Urine color determinationOrd ered By: Deuce Levy on 05-20-2023 Color (U) Yellow Yellow [facility] Urine glucose detectionOrder ed By: Deuce Levy on 05-20-2023 Glucose Ql (U) Normal mg/dl Normal [facility] Urine leukocyte esterase det ection by dipstickOrdered By: Deuce Levy on 05-20-2023 Leukocyte esterase Test strip Ql (U) Negative Negative [facility] Urine pHOrdered By: Deuce hernandez on 05-20-2023 pH (U) 6.5 [pH] 5.0 - 8.0 [facility] Urine sediment bacteria coun t by microscopy (number/high power field)Ordered By: Deuce Levy on 05-20-2023 Bacteria LM.HPF (Urine sed) [#/Area] 0 /[HPF] None Seen [facility] Urine specific gravity measu rementOrdered By: Deuce Levy on 05-20-2023 Specific gravity (U) [Rel density] 1.020 1.002-1.030 [facility] Urobilinogen Auto test strip Ql (U)Ordered By: Deuce Levy on 05-20-2023 Urobilinogen Ql (U) Normal mg/dl Normal [facility] LABORATORYOrdered By: Gifty Darby on 05-01-2023 C. trachomatis DNA FRANCOISE+probe Ql (Unsp spec) Negative (05/01/23 4:11 PM) Invalid Interpretation Code Negative Auto Viro/Sero SS C. trachomatis DNA FRANCOISE+probe Ql (Unsp spec) C. trachomatis DNA not detected. Specimen is presumptive negative forC. trachomatis.A negative result does not preclude C. trachomatis infection becauseresults depend on adequate specimen collection, absence of inhibitors,and sufficient DNA to be detected. Invalid Interpretation Code See CT Interp N Auto Viro/Sero SS N. gonorrhoeae DNA FRANCOISE+probe Ql (Unsp spec) Negative (05/01/23 4:11 PM) Invalid Interpretation Code Negative Auto Viro/Sero SS N. gonorrhoeae DNA FRANCOISE+probe Ql (Unsp spec) N. gonorrhoeae DNA not detected. Specimen is presumptive negative forN. gonorrhoeae. A negative result does not preclude Neisseria gonorrhoeaeinfection because results depend on adequate specimen collection, absenceof inhibitors, and sufficient DNA to be detected. Invalid Interpretation Code See NG Interp N AH Auto Viro/Sero SS Laboratory - Specimen inform ationOrdered By: Gifty Darby on 05-01-2023 Specimen source Nom (Unsp spec) Vaginal (05/01/23 4:11 PM) Invalid Interpretation Code AH Auto Viro/Sero SS No Panel Informationon 05-01 Culture Wound Aerobe Few normal skin solange ra present. Sensitivity testing not indicated. [facility] Work Phone: GS No organisms seen. [facility] Work Phone: LABORATORYOrdered By: Yanely Funk on 04-03-2023 HIV 1 p24 Ab Ql (S) Non-Reactive (04/03/23 12:09 PM) Invalid Interpretation Code Non-Reactiv e AO Rapid Testing SS HIV 1 p24 Ab Ql (S) Non-Reactive Invalid Interpretation Code AO Rapid Testing SS HIV 1+2 Ab IA Ql Non-Reactive Invalid Interpretation Code AO Rapid Testing SS HIV 1+2 Ab IA.rapid Ql (Unsp spec) Non-Reactive (04/03/23 12:09 PM) Invalid Interpretation Code Non-Reactiv e AO Rapid Testing SS LABORATORYOrdered By: Flakita Wayne on 04-03-2023 ABO/Rh Interp Negative Invalid Interpretation Code AO BB SS Antibody Screen Gel Positive ABSC (04/03/23 12:06 PM) Invalid Interpretation Code AO BB SS LABORATORYOrdered By: Nhi Duval on 04-03-2023 Basophil, Absolute 0.0 103/mcL Invalid Interpretation Code 0.0 - 0.2 10^3/mcL AO Workflow SS Basophils/100 WBC (Bld) 0.2 % Invalid Interpretation Code 0.0 - 2.5 % AO Workflow SS Eosinophil, Absolute 0.1 103/mcL Invalid Interpretation Code 0.0 - 0.4 10^3/mcL AO Workflow SS Eosinophils/100 WBC (Bld) 1.0 % Invalid Interpretation Code 0.0 - 7.0 % AO Workflow SS Erythrocyte distribution width (RBC) [Ratio] 13.2 % Invalid Interpretation Code 11.5 - 14.5 % AO Workflow SS Hematocrit (Bld) [Volume fraction] 39.4 % Invalid Interpretation Code 37.0 - 47.0 % AO Workflow SS Hemoglobin (Bld) [Mass/Vol] 13.4 G/dL Invalid Interpretation Code 12.0 - 16.0 G/dL AO Workflow SS Lymphocyte, Absolute 3.8 103/mcL Invalid Interpretation Code 0.8 - 3.9 10^3/mcL AO Workflow SS Lymphocytes/100 WBC (Bld) 34.8 % Invalid Interpretation Code 10.0 - 50.0 % AO Workflow SS MCH (RBC) [Entitic mass] 30.9 pg Invalid Interpretation Code 27.0 - 31.2 pg AO Workflow SS MCHC 34.0 G/dL Invalid Interpretation Code 33.0 - 37.0 G/dL AO Workflow SS MCV (RBC) [Entitic vol] 90.9 fL Invalid Interpretation Code 80.0 - 94.0 fL AO Workflow SS Monocyte, Absolute 0.6 103/mcL Invalid Interpretation Code 0.2 - 1.0 10^3/mcL AO Workflow SS Monocytes/100 WBC (Bld) 5.9 % Invalid Interpretation Code 1.7 - 13.0 % AO Workflow SS Neutrophil, Absolute 6.3 103/mcL Invalid Interpretation Code 2.9 - 6.2 10^3/mcL AO Workflow SS Neutrophils/100 WBC (Bld) 58.1 % Invalid Interpretation Code 37.0 - 80.0 % AO Workflow SS Platelet mean volume (Bld) [Entitic vol] 10.0 fL Invalid Interpretation Code 7.4 - 10.4 fL AO Workflow SS Platelets (Bld) [#/Vol] 291 103/mcL Invalid Interpretation Code 130 - 400 10^3/mcL AO Workflow SS RBC (Bld) [#/Vol] 4.34 106/mcL Invalid Interpretation Code 4.20 - 5.40 10^6/mcL AO Workflow SS WBC (Bld) [#/Vol] 10.9 103/mcL Invalid Interpretation Code 4.6 - 10.8 10^3/mcL AO Workflow SS LABORATORYOrdered By: SYSTEM SYSTEM on 04-03-2023 HbA1c (Bld) [Mass fraction] 5.0 % Invalid Interpretation Code 4.3 - 6.4 % AO ADM SS HBV surface Ag IA Ql Non-Reactive (04/03/23 12:06 PM) Invalid Interpretation Code Non-Reactiv e ADM SS TSH Qn 3.63 m[IU]/L Invalid Interpretation Code 0.36 - 3.74 mcIU/mL AO ADM SS LABORATORYOrdered By: Lesia Mejia on 04-03-2023 HCV Ab IA Ql Non-Reactive (04/03/23 12:06 PM) Invalid Interpretation Code Non-Reactiv e ADM SS HCV Ab IA Ql Nonreactive: Samples with a value < 0.80 are considered nonreactive (negative) for antibodies to HCV.A negative test result does not exclude the possibility of exposure to or infection with HCV. HCV antibodies may be undetectable in some stages of the infection and in some clinical conditions. Invalid Interpretation Code AH Chemistry S LABORATORYOrdered By: Celina Roberto on 04-03-2023 Indirect antiglobulin test.IgG specific reagent Ql Negative (04/03/23 12:06 PM) Invalid Interpretation Code BB Manual SS Passive Anti-D Invalid Interpretation Code BB Manual SS Absolute lymphocyte countOrd ered By: Viet Glover on 03-26-2023 Lymphocytes Auto (Unsp spec) [#/Vol] 3.02 10*3/uL 0.83-4.51 [facility] Basophil percentageOrdered B y: Viet Glover on 03-26-2023 Basophil percentage 0-5 SEEN /hpf 0-5 [facility] Basophils/100 WBC (Bld) 0.4 % 0-1 [facility] Eosinophils/100 WBC (Bld) 1.0 % 0-5 [facility] Neutrophils (Bld) [#/Vol] 5.7 10*3/uL 2.0-7.7 [facility] Neutrophils/100 WBC (Bld) 60.9 % 47-70 [facility] WBC (Bld) [#/Vol] 9.4 10*3/uL 4.4-11.0 [facility] Bilirubin Test strip Ql (U)O rdered By: Viet Glover on 03-26-2023 Bilirubin Ql (U) Negative Negative [facility] Blood erythrocytes count (nu mber/volume)Ordered By: Viet Glover on 03-26-2023 RBC (Bld) [#/Vol] 4.40 10*6/uL 4.2-5.4 [facility] Blood hemoglobin measurement (mass/volume)Ordered By: Viet Glover on 03-26-2023 Hemoglobin (Bld) [Mass/Vol] 13.6 g/dL 12.0-15.0 [facility] Blood lymphocytes/100 leukoc ytesOrdered By: Viet Glover on 03-26-2023 Lymphocytes/100 WBC (Bld) 32.2 % 19-41 [facility] Blood monocytes/100 leukocyt esOrdered By: Viet Glover on 05-07-2023 Monocytes/100 WBC (Bld) 5.4 % 0-10 [facility] Blood platelet mean volumeOr dered By: Viet Glover on 03-26-2023 Platelet mean volume (Bld) [Entitic vol] 11.0 fL 6.2-12.0 [facility] Determination of erythrocyte mean corpuscular volume (MCV)Ordered By: Viet Glover on 03-26-2023 MCV (RBC) [Entitic vol] 90.9 fL 81-99 [facility] Hematocrit Auto (Bld) [Volum e fraction]Ordered By: Viet Glover on 03-26-2023 Hematocrit (Bld) [Volume fraction] 40.0 % 37-47 [facility] Ketones Test strip Ql (U)Ord ered By: Viet Glover on 03-26-2023 Ketones Ql (U) Negative Negative [facility] Laboratory - Hematology and Cell countsOrdered By: Viet Glover on 03-26-2023 Erythrocyte distribution width (RBC) [Entitic vol] 43.2 fL 35.1-43.9 [facility] Erythrocyte distribution width (RBC) [Ratio] 13.0 % 11.6-14.6 [facility] Immature granulocytes/100 WBC (Bld) 0.100 % 0.0-0.9 [facility] Comment on above: IG% - Immature Granu locytes (promyelocytes, myelocytes and metamyelocytes) > 1% indicates that a LEFT SHIFT is Present. MCH (RBC) [Entitic mass] 30.9 pg 27.0-32.0 [facility] Nucleated RBC/100 WBC (Bld) [Ratio] 0 % 0-5 [facility] MCHC Auto (RBC) [Mass/Vol]Or dered By: Viet Glover on 03-26-2023 MCHC (RBC) [Mass/Vol] 34.0 g/dL 32-36 [facility] Mucus LM Ql (Urine sed)Order ed By: Viet Glover on 03-26-2023 Mucus Ql (Urine sed) 0 SEEN /hpf [facility] Nitrite Test strip Ql (U)Ord ered By: Viet Glover on 03-26-2023 Nitrite Ql (U) Negative Negative [facility] Platelets bldOrdered By: Manuela Glover on 03-26-2023 Platelets (Bld) [#/Vol] 300 10*3/uL 150-450 [facility] Protein Test strip Ql (U)Ord ered By: Viet Glover on 03-26-2023 Protein Ql (U) 15 mg/dl Negative [facility] Serum or plasma choriogonado tropin detectionOrdered By: Viet Glover on 03-26-2023 HCG ( test) [place]l [address] mIU/mL <4 [facility] Comment on above: hCG levels with Gest ational AgeGestational Age hCG mIU/mL (IU/L)0.2 - 1 week 5 - 501-2 weeks 50 - 5002-3 weeks 100 - 85833-9 weeks 500 - 806157-2 weeks 1000 - 875286-1 weeks 98913 - 100,0006-8 weeks 23609 - 200,0002-3 months 69070 - 100,000 Squamous epithelial cells de tection in urine sediment by light microscopyOrdered By: Viet Glover on 03-26-2023 Epithelial cells.squamous LM Ql (Urine sed) 5-10 SEEN /hpf 5-10 [facility] Urine blood detectionOrdered By: Viet Glover on 03-26-2023 RBC Ql (U) 25 /ul Negative [facility] RBC Ql (U) 0 SEEN /hpf 0-5 [facility] Urine clarityOrdered By: Manuela Glover on 03-26-2023 Clarity (U) Clear Clear [facility] Urine color determinationOrd ered By: Vite Glover on 03-26-2023 Color (U) Yellow Yellow [facility] Urine glucose detectionOrder ed By: Viet Glover on 03-26-2023 Glucose Ql (U) Normal mg/dl Normal [facility] Urine leukocyte esterase det ection by dipstickOrdered By: Viet Glover on 03-26-2023 Leukocyte esterase Test strip Ql (U) 25 /ul Negative [facility] Urine pHOrdered By: Viet haq on 03-26-2023 pH (U) 7.0 [pH] 5.0 - 8.0 [facility] Urine sediment bacteria coun t by microscopy (number/high power field)Ordered By: Viet Glover on 03-26-2023 Bacteria LM.HPF (Urine sed) [#/Area] 1 /[HPF] None Seen [facility] Urine specific gravity measu rementOrdered By: Viet Glover on 03-26-2023 Specific gravity (U) [Rel density] 1.010 1.002-1.030 [facility] Urobilinogen Auto test strip Ql (U)Ordered By: Viet Glover on 03-26-2023 Urobilinogen Ql (U) Normal mg/dl Normal [facility] LABORATORYOrdered By: SYSTEM SYSTEM on 03-20-2023 HCG Qn 4037.6 m[IU]/mL Invalid Interpretation Code AO ADM SS LABORATORYOrdered By: SYSTEM SYSTEM on 03-15-2023 HCG Qn 366.8 m[IU]/mL Invalid Interpretation Code AO ADM SS LABORATORYOrdered By: SYSTEM SYSTEM on 03-13-2023 HCG Qn 114.4 m[IU]/mL Invalid Interpretation Code AO ADM SS LABORATORYOrdered By: SYSTEM SYSTEM on 03-08-2023 HCG Qn 4.2 m[IU]/mL Invalid Interpretation Code AO ADM SS STREP A MOLECULAR (POC)on Procedural Control Valid [facility] Strep A (POCT) Negative Negative [facility] LABORATORYOrdered By: Iliana brand on 08-30-2022 C. trachomatis DNA FRANCOISE+probe Ql (Unsp spec) Negative (08/30/22 1:41 PM) Invalid Interpretation Code Negative Auto Viro/Sero SS C. trachomatis DNA FRANCOISE+probe Ql (Unsp spec) C. trachomatis DNA not detected. Specimen is presumptive negative forC. trachomatis.A negative result does not preclude C. trachomatis infection becauseresults depend on adequate specimen collection, absence of inhibitors,and sufficient DNA to be detected. Invalid Interpretation Code See CT Interp N AH Auto Viro/Sero SS N. gonorrhoeae DNA FRANCOISE+probe Ql (Unsp spec) Negative (08/30/22 1:41 PM) Invalid Interpretation Code Negative Auto Viro/Sero SS N. gonorrhoeae DNA FRANCOISE+probe Ql (Unsp spec) N. gonorrhoeae DNA not detected. Specimen is presumptive negative forN. gonorrhoeae. A negative result does not preclude Neisseria gonorrhoeaeinfection because results depend on adequate specimen collection, absenceof inhibitors, and sufficient DNA to be detected. Invalid Interpretation Code See NG Interp N AH Auto Viro/Sero SS LABORATORYOrdered By: Monica Kwon on 08-30-2022 ABO/Rh Interp Negative Invalid Interpretation Code AO BB SS Antibody Screen Gel Positive ABSC (08/30/22 10:01 AM) Invalid Interpretation Code AO BB SS Basophil, Absolute 0.0 103/mcL Invalid Interpretation Code 0.0 - 0.2 10^3/mcL AO Workflow SS Basophils/100 WBC (Bld) 0.4 % Invalid Interpretation Code 0.0 - 2.5 % AO Workflow SS Eosinophil, Absolute 0.1 103/mcL Invalid Interpretation Code 0.0 - 0.4 10^3/mcL AO Workflow SS Eosinophils/100 WBC (Bld) 1.6 % Invalid Interpretation Code 0.0 - 7.0 % AO Workflow SS Erythrocyte distribution width (RBC) [Ratio] 14.0 % Invalid Interpretation Code 11.5 - 14.5 % AO Workflow SS Hematocrit (Bld) [Volume fraction] 40.0 % Invalid Interpretation Code 37.0 - 47.0 % AO Workflow SS Hemoglobin (Bld) [Mass/Vol] 13.7 G/dL Invalid Interpretation Code 12.0 - 16.0 G/dL AO Workflow SS Lymphocyte, Absolute 2.5 103/mcL Invalid Interpretation Code 0.8 - 3.9 10^3/mcL AO Workflow SS Lymphocytes/100 WBC (Bld) 35.1 % Invalid Interpretation Code 10.0 - 50.0 % AO Workflow SS MCH (RBC) [Entitic mass] 30.8 pg Invalid Interpretation Code 27.0 - 31.2 pg AO Workflow SS MCHC 34.3 G/dL Invalid Interpretation Code 33.0 - 37.0 G/dL AO Workflow SS MCV (RBC) [Entitic vol] 89.9 fL Invalid Interpretation Code 80.0 - 94.0 fL AO Workflow SS Monocyte, Absolute 0.4 103/mcL Invalid Interpretation Code 0.2 - 1.0 10^3/mcL AO Workflow SS Monocytes/100 WBC (Bld) 5.4 % Invalid Interpretation Code 1.7 - 13.0 % AO Workflow SS Neutrophil, Absolute 4.1 103/mcL Invalid Interpretation Code 2.9 - 6.2 10^3/mcL AO Workflow SS Neutrophils/100 WBC (Bld) 57.5 % Invalid Interpretation Code 37.0 - 80.0 % AO Workflow SS Platelet mean volume (Bld) [Entitic vol] 9.8 fL Invalid Interpretation Code 7.4 - 10.4 fL AO Workflow SS Platelets (Bld) [#/Vol] 281 103/mcL Invalid Interpretation Code 130 - 400 10^3/mcL AO Workflow SS RBC (Bld) [#/Vol] 4.45 106/mcL Invalid Interpretation Code 4.20 - 5.40 10^6/mcL AO Workflow SS WBC (Bld) [#/Vol] 7.1 103/mcL Invalid Interpretation Code 4.6 - 10.8 10^3/mcL AO Workflow SS Glucose [Mass/Vol] 98 mg/dL Invalid Interpretation Code 70 - 105 mg/dL AO ADM SS LABORATORYOrdered By: SYSTEM SYSTEM on 08-30-2022 HBV surface Ag IA Ql Non-Reactive (08/30/22 10:01 AM) Invalid Interpretation Code Non-Reactiv e AH ADM SS Insulin Qn 30.14 munit/L Invalid Interpretation Code 2.60 - 37.60 mU/L AH ADM SS Thyroglobulin Ab IA Qn 16 unit/mL Invalid Interpretation Code 15 - 60 unit/mL AH ADM SS LABORATORYOrdered By: Wyatt Fenton on 08-30-2022 Indirect antiglobulin test.IgG specific reagent Ql Negative (08/30/22 10:01 AM) Invalid Interpretation Code BB Manual SS Passive Anti-D Invalid Interpretation Code BB Manual SS Laboratory - Specimen inform ationOrdered By: Iliana Solares on 08-30-2022 Specimen source Nom (Unsp spec) Cervix (08/30/22 1:41 PM) Invalid Interpretation Code Auto Viro/Sero SS LABORATORYOrdered By: Monica Kwon on 08-08-2022 HCG Qn 163.9 m[IU]/mL Invalid Interpretation Code AO ADM SS LABORATORYOrdered By: Monica Kwon on 08-06-2022 Appearance (U) Cloudy *ABN* (08/06/22 4:59 PM) Invalid Interpretation Code Clear AO Auto Urine SS Bacteria LM.HPF (Urine sed) [#/Area] 2 /[HPF] Invalid Interpretation Code AO Auto Urine SS Bilirubin Ql (U) Small *ABN* (08/06/22 4:59 PM) Invalid Interpretation Code Negative AO Auto Urine SS Color (U) Red *ABN* (08/06/22 4:59 PM) Invalid Interpretation Code AO Auto Urine SS Glucose Test strip (U) [Mass/Vol] Negative Invalid Interpretation Code Negativemg/ dL AO Auto Urine SS Hemoglobin Auto test strip (U) [Mass/Vol] Large *ABN* (08/06/22 4:59 PM) Invalid Interpretation Code Negative AO Auto Urine SS Ketones Ql (U) Trace mg/dL Invalid Interpretation Code Negativemg/ dL AO Auto Urine SS UA Leuk Est Small *ABN* (08/06/22 4:59 PM) Invalid Interpretation Code Negative AO Auto Urine SS UA Nitrite Negative (08/06/22 4:59 PM) Invalid Interpretation Code Negative AO Auto Urine SS UA pH 5.5 (08/06/22 4:59 PM) Invalid Interpretation Code 5.0 - 8.0 AO Auto Urine SS UA Protein >=300 mg/dL Invalid Interpretation Code Negativemg/ dL AO Auto Urine SS UA RBC LOADED /HPF Invalid Interpretation Code None Seen/HPF AO Auto Urine SS UA Spec Grav >=1.030 *ABN* (08/06/22 4:59 PM) Invalid Interpretation Code 1.015-1.025 AO Auto Urine SS UA Specimen Type Void (08/06/22 4:59 PM) Invalid Interpretation Code AO Auto Urine SS UA Squam Epithelial 5-10 /HPF Invalid Interpretation Code None Seen/HPF AO Auto Urine SS UA Urobilinogen 0.2 E.U./dL Invalid Interpretation Code 0.2-1.0E.U. /dL AO Auto Urine SS WBC LM.HPF (Urine sed) [#/Area] LOADED /HPF Invalid Interpretation Code None Seen/HPF AO Auto Urine SS HCG Qn 353.3 m[IU]/mL Invalid Interpretation Code AO ADM SS Hemoglobin (Bld) [Mass/Vol] 12.1 G/dL Invalid Interpretation Code 12.0 - 16.0 G/dL AO Workflow SS LABORATORYOrdered By: Monica Kwon on 08-01-2022 HCG Qn 9978.0 m[IU]/mL Invalid Interpretation Code AO ADM SS LABORATORYOrdered By: Penny Francois on 07-27-2022 HbA1c (Bld) [Mass fraction] 5.1 % Invalid Interpretation Code 4.3 - 6.4 % AO ADM SS TSH Qn 2.04 m[IU]/L Invalid Interpretation Code 0.36 - 3.74 mcIU/mL AO ADM SS LABORATORYOrdered By: Soheila Palma on 07-26-2022 Appearance (U) Slightly Cloudy *ABN* (07/26/22 6:59 PM) Invalid Interpretation Code Clear AO Auto Urine SS Bacteria LM.HPF (Urine sed) [#/Area] 1 /[HPF] Invalid Interpretation Code AO Auto Urine SS Bilirubin Ql (U) Negative (07/26/22 6:59 PM) Invalid Interpretation Code Negative AO Auto Urine SS Color (U) Yellow (07/26/22 6:59 PM) Invalid Interpretation Code AO Auto Urine SS Glucose Test strip (U) [Mass/Vol] Negative Invalid Interpretation Code Negativemg/ dL AO Auto Urine SS Hemoglobin Auto test strip (U) [Mass/Vol] Large *ABN* (07/26/22 6:59 PM) Invalid Interpretation Code Negative AO Auto Urine SS Ketones Ql (U) 40 mg/dL Invalid Interpretation Code Negativemg/ dL AO Auto Urine SS UA Leuk Est Trace *ABN* (07/26/22 6:59 PM) Invalid Interpretation Code Negative AO Auto Urine SS UA Nitrite Positive *ABN* (07/26/22 6:59 PM) Invalid Interpretation Code Negative AO Auto Urine SS UA pH 6.0 (07/26/22 6:59 PM) Invalid Interpretation Code 5.0 - 8.0 AO Auto Urine SS UA Protein 30 mg/dL Invalid Interpretation Code Negativemg/ dL AO Auto Urine SS UA RBC LOADED /HPF Invalid Interpretation Code None Seen/HPF AO Auto Urine SS UA Spec Grav >=1.030 *ABN* (07/26/22 6:59 PM) Invalid Interpretation Code 1.015-1.025 AO Auto Urine SS UA Specimen Type Not Given (07/26/22 6:59 PM) Invalid Interpretation Code AO Auto Urine SS UA Squam Epithelial 0-5 /HPF Invalid Interpretation Code None Seen/HPF AO Auto Urine SS UA Urobilinogen 0.2 E.U./dL Invalid Interpretation Code 0.2-1.0E.U. /dL AO Auto Urine SS WBC LM.HPF (Urine sed) [#/Area] 5-10 /HPF Invalid Interpretation Code None Seen/HPF AO Auto Urine SS LABORATORYOrdered By: Lenka Ha on 07-26-2022 Basophil, Absolute 0.1 103/mcL Invalid Interpretation Code 0.0 - 0.2 10^3/mcL AO Workflow SS Basophils/100 WBC (Bld) 0.6 % Invalid Interpretation Code 0.0 - 2.5 % AO Workflow SS Eosinophil, Absolute 0.0 103/mcL Invalid Interpretation Code 0.0 - 0.4 10^3/mcL AO Workflow SS Eosinophils/100 WBC (Bld) 0.3 % Invalid Interpretation Code 0.0 - 7.0 % AO Workflow SS Erythrocyte distribution width (RBC) [Ratio] 14.5 % Invalid Interpretation Code 11.5 - 14.5 % AO Workflow SS Hematocrit (Bld) [Volume fraction] 40.2 % Invalid Interpretation Code 37.0 - 47.0 % AO Workflow SS Hemoglobin (Bld) [Mass/Vol] 13.6 G/dL Invalid Interpretation Code 12.0 - 16.0 G/dL AO Workflow SS Lymphocyte, Absolute 2.8 103/mcL Invalid Interpretation Code 0.8 - 3.9 10^3/mcL AO Workflow SS Lymphocytes/100 WBC (Bld) 23.7 % Invalid Interpretation Code 10.0 - 50.0 % AO Workflow SS MCH (RBC) [Entitic mass] 29.3 pg Invalid Interpretation Code 27.0 - 31.2 pg AO Workflow SS MCHC 33.7 G/dL Invalid Interpretation Code 33.0 - 37.0 G/dL AO Workflow SS MCV (RBC) [Entitic vol] 87.0 fL Invalid Interpretation Code 80.0 - 94.0 fL AO Workflow SS Monocyte distribution width Auto (Bld) [Entitic vol] 17.84 Invalid Interpretation Code 0.00 - 20.00 AO Workflow SS Comment on above: Result Comment: For ED adult patients suspected of sepsis, MDW<=20.0 does not rule out sepsis or risk of sepsis Monocyte, Absolute 0.5 103/mcL Invalid Interpretation Code 0.2 - 1.0 10^3/mcL AO Workflow SS Monocytes/100 WBC (Bld) 4.3 % Invalid Interpretation Code 1.7 - 13.0 % AO Workflow SS Neutrophil, Absolute 8.5 103/mcL Invalid Interpretation Code 2.9 - 6.2 10^3/mcL AO Workflow SS Neutrophils/100 WBC (Bld) 71.1 % Invalid Interpretation Code 37.0 - 80.0 % AO Workflow SS Platelet mean volume (Bld) [Entitic vol] 9.0 fL Invalid Interpretation Code 7.4 - 10.4 fL AO Workflow SS Platelets (Bld) [#/Vol] 309 103/mcL Invalid Interpretation Code 130 - 400 10^3/mcL AO Workflow SS RBC (Bld) [#/Vol] 4.62 106/mcL Invalid Interpretation Code 4.20 - 5.40 10^6/mcL AO Workflow SS WBC (Bld) [#/Vol] 11.9 103/mcL Invalid Interpretation Code 4.6 - 10.8 10^3/mcL AO Workflow SS LABORATORYOrdered By: Heide Au on 07-26-2022 Calcium [Mass/Vol] 8.8 mg/dL Invalid Interpretation Code 8.4 - 10.2 mg/dL AO ADM SS Chloride [Moles/Vol] 103 mmol/L Invalid Interpretation Code 98 - 107 mmol/L AO ADM SS CO2 [Moles/Vol] 26 mmol/L Invalid Interpretation Code 22 - 29 mmol/L AO ADM SS Creatinine [Mass/Vol] 0.75 mg/dL Invalid Interpretation Code 0.55 - 1.02 mg/dL AO ADM SS Electrolyte Balance 9.0 mEq/L Invalid Interpretation Code 4.0 - 15.0 mEq/L AO ADM SS Glucose [Mass/Vol] 87 mg/dL Invalid Interpretation Code 70 - 105 mg/[place] [address].0 m[IU]/mL Invalid Interpretation Code AO ADM SS Potassium [Moles/Vol] 3.8 mmol/L Invalid Interpretation Code 3.5 - 5.1 mmol/L AO ADM SS Sodium [Moles/Vol] 138 mmol/L Invalid Interpretation Code 136 - 145 mmol/L AO ADM SS Urea nitrogen [Mass/Vol] 8 mg/dL Invalid Interpretation Code 7 - 18 mg/dL AO ADM SS Urea nitrogen/Creatinine [Mass ratio] 11 ratio Invalid Interpretation Code 7 - 27 ratio AO ADM SS LABORATORYOrdered By: SYSTEM SYSTEM on 07-26-2022 GFR 119 ml/min/1.73sqm Invalid Interpretation Code AO Chemistry S GFR Non- 99 ml/min/1.73sqm Invalid Interpretation Code AO Chemistry S LABORATORYOrdered By: Penny Barbosa on 07-18-2022 HCG Qn 8303.8 m[IU]/mL Invalid Interpretation Code AO ADM SS LABORATORYOrdered By: Monica Kwon on 07-15-2022 Basophil, Absolute 0.1 103/mcL Invalid Interpretation Code 0.0 - 0.2 10^3/mcL AO Workflow SS Basophils/100 WBC (Bld) 0.5 % Invalid Interpretation Code 0.0 - 2.5 % AO Workflow SS Eosinophil, Absolute 0.1 103/mcL Invalid Interpretation Code 0.0 - 0.4 10^3/mcL AO Workflow SS Eosinophils/100 WBC (Bld) 0.5 % Invalid Interpretation Code 0.0 - 7.0 % AO Workflow SS Erythrocyte distribution width (RBC) [Ratio] 14.3 % Invalid Interpretation Code 11.5 - 14.5 % AO Workflow SS Hematocrit (Bld) [Volume fraction] 40.0 % Invalid Interpretation Code 37.0 - 47.0 % AO Workflow SS Hemoglobin (Bld) [Mass/Vol] 13.4 G/dL Invalid Interpretation Code 12.0 - 16.0 G/dL AO Workflow SS Lymphocyte, Absolute 2.9 103/mcL Invalid Interpretation Code 0.8 - 3.9 10^3/mcL AO Workflow SS Lymphocytes/100 WBC (Bld) 26.4 % Invalid Interpretation Code 10.0 - 50.0 % AO Workflow SS MCH (RBC) [Entitic mass] 29.5 pg Invalid Interpretation Code 27.0 - 31.2 pg AO Workflow SS MCHC 33.5 G/dL Invalid Interpretation Code 33.0 - 37.0 G/dL AO Workflow SS MCV (RBC) [Entitic vol] 87.9 fL Invalid Interpretation Code 80.0 - 94.0 fL AO Workflow SS Monocyte distribution width Auto (Bld) [Entitic vol] 17.35 Invalid Interpretation Code 0.00 - 20.00 AO Workflow SS Comment on above: Result Comment: For ED adult patients suspected of sepsis, MDW<=20.0 does not rule out sepsis or risk of sepsis Monocyte, Absolute 0.6 103/mcL Invalid Interpretation Code 0.2 - 1.0 10^3/mcL AO Workflow SS Monocytes/100 WBC (Bld) 5.8 % Invalid Interpretation Code 1.7 - 13.0 % AO Workflow SS Neutrophil, Absolute 7.4 103/mcL Invalid Interpretation Code 2.9 - 6.2 10^3/mcL AO Workflow SS Neutrophils/100 WBC (Bld) 66.8 % Invalid Interpretation Code 37.0 - 80.0 % AO Workflow SS Platelet mean volume (Bld) [Entitic vol] 9.2 fL Invalid Interpretation Code 7.4 - 10.4 fL AO Workflow SS Platelets (Bld) [#/Vol] 303 103/mcL Invalid Interpretation Code 130 - 400 10^3/mcL AO Workflow SS RBC (Bld) [#/Vol] 4.55 106/mcL Invalid Interpretation Code 4.20 - 5.40 10^6/mcL AO Workflow SS WBC 11.1 103/mcL Invalid Interpretation Code 4.6 - 10.8 10^3/mcL AO Workflow SS LABORATORYOrdered By: Penny Francois on 07-15-2022 HCG Qn 4129.3 m[IU]/mL Invalid Interpretation Code AO ADM SS LABORATORYOrdered By: Monica Kwon on 03-23-2022 HCG Qn 6.0 m[IU]/mL Invalid Interpretation Code AO ADM SS LABORATORYOrdered By: Vikram Merlos on 03-11-2022 HCG Qn 485.9 m[IU]/mL Invalid Interpretation Code AO ADM SS LABORATORYOrdered By: Heide Au on 03-04-2022 Basophil, Absolute 0.00 103/mcL Invalid Interpretation Code 0.00 - 0.19 10^3/mcL AO Auto Heme SS Basophils/100 WBC (Bld) 0.3 % Invalid Interpretation Code 0.0 - 2.5 % AO Auto Heme SS Eosinophil, Absolute 0.10 103/mcL Invalid Interpretation Code 0.00 - 0.40 10^3/mcL AO Auto Heme SS Eosinophils/100 WBC (Bld) 0.8 % Invalid Interpretation Code 0.0 - 7.0 % AO Auto Heme SS Erythrocyte distribution width (RBC) [Ratio] 12.9 % Invalid Interpretation Code 11.5 - 14.5 % AO Auto Heme SS Hematocrit (Bld) [Volume fraction] 39.7 % Invalid Interpretation Code 37.0 - 47.0 % AO Auto Heme SS Hemoglobin (Bld) [Mass/Vol] 13.5 G/dL Invalid Interpretation Code 12.0 - 16.0 G/dL AO Auto Heme SS Lymphocyte, Absolute 2.90 103/mcL Invalid Interpretation Code 0.77 - 3.85 10^3/mcL AO Auto Heme SS Lymphocytes/100 WBC (Bld) 25.1 % Invalid Interpretation Code 10.0 - 50.0 % AO Auto Heme SS MCH (RBC) [Entitic mass] 30.9 pg Invalid Interpretation Code 27.0 - 31.2 pg AO Auto Heme SS MCHC (RBC) [Mass/Vol] 33.9 G/dL Invalid Interpretation Code 33.0 - 37.0 G/dL AO Auto Heme SS MCV (RBC) [Entitic vol] 90.9 fL Invalid Interpretation Code 80.0 - 94.0 fL AO Auto Heme SS Monocyte, Absolute 0.60 103/mcL Invalid Interpretation Code 0.15 - 1.00 10^3/mcL AO Auto Heme SS Monocytes/100 WBC (Bld) 4.9 % Invalid Interpretation Code 1.7 - 13.0 % AO Auto Heme SS Neutrophil, Absolute 8.00 103/mcL Invalid Interpretation Code 2.85 - 6.16 10^3/mcL AO Auto Heme SS Neutrophils/100 WBC (Bld) 68.9 % Invalid Interpretation Code 37.0 - 80.0 % AO Auto Heme SS Platelet mean volume (Bld) [Entitic vol] 9.5 fL Invalid Interpretation Code 7.4 - 10.4 fL AO Auto Heme SS Platelets (Bld) [#/Vol] 313 103/mcL Invalid Interpretation Code 130 - 400 10^3/mcL AO Auto Heme SS RBC (Bld) [#/Vol] 4.37 106/mcL Invalid Interpretation Code 4.20 - 5.40 10^6/mcL AO Auto Heme SS WBC (Bld) [#/Vol] 11.60 103/mcL Invalid Interpretation Code 4.60 - 10.80 10^3/mcL AO Auto Heme SS LABORATORYOrdered By: Penny Barbosa on 03-04-2022 Calcium [Mass/Vol] 9.3 mg/dL Invalid Interpretation Code 8.4 - 10.2 mg/dL AO ADM SS Chloride [Moles/Vol] 102 mmol/L Invalid Interpretation Code 98 - 107 mmol/L AO ADM SS CO2 [Moles/Vol] 24 mmol/L Invalid Interpretation Code 22 - 29 mmol/L AO ADM SS Creatinine [Mass/Vol] 0.64 mg/dL Invalid Interpretation Code 0.55 - 1.02 mg/dL AO ADM SS Electrolyte Balance 12.0 mEq/L Invalid Interpretation Code 4.0 - 15.0 mEq/L AO ADM SS Glucose [Mass/Vol] 105 mg/dL Invalid Interpretation Code 70 - 105 mg/[place] [address].9 m[IU]/mL Invalid Interpretation Code AO ADM SS Potassium [Moles/Vol] 4.1 mmol/L Invalid Interpretation Code 3.5 - 5.1 mmol/L AO ADM SS Sodium [Moles/Vol] 138 mmol/L Invalid Interpretation Code 136 - 145 mmol/L AO ADM SS Urea nitrogen [Mass/Vol] 8 mg/dL Invalid Interpretation Code 7 - 18 mg/dL AO ADM SS Urea nitrogen/Creatinine [Mass ratio] 12 ratio Invalid Interpretation Code 7 - 27 ratio AO ADM SS LABORATORYOrdered By: Juxinli SYSTEM on 03-04-2022 GFR 145 ml/min/1.73sqm Invalid Interpretation Code AO Chemistry S GFR Non- 120 ml/min/1.73sqm Invalid Interpretation Code AO Chemistry S LABORATORYOrdered By: Gifty Darby on 03-03-2022 C. trachomatis DNA FRANCOISE+probe Ql (Unsp spec) Negative (03/03/22 1:57 PM) Invalid Interpretation Code Negative AH Auto Viro/Sero SS C. trachomatis Interp C. trachomatis DNA not detected. Specimen is presumptive negative forC. trachomatis.A negative result does not preclude C. trachomatis infection becauseresults depend on adequate specimen collection, absence of inhibitors,and sufficient DNA to be detected. Invalid Interpretation Code See CT Interp N AH Auto Viro/Sero SS N. gonorrhoeae DNA FRANCOISE+probe Ql (Unsp spec) Negative (03/03/22 1:57 PM) Invalid Interpretation Code Negative AH Auto Viro/Sero SS N. gonorrhoeae Interp N. gonorrhoeae DNA not detected. Specimen is presumptive negative forN. gonorrhoeae. A negative result does not preclude Neisseria gonorrhoeaeinfection because results depend on adequate specimen collection, absenceof inhibitors, and sufficient DNA to be detected. Invalid Interpretation Code See NG Interp N AH Auto Viro/Sero SS LABORATORYOrdered By: Penny Francois on 03-03-2022 TSH Qn 0.95 m[IU]/L Invalid Interpretation Code 0.36 - 3.74 mcIU/mL AO ADM SS Basophil, Absolute 0.00 103/mcL Invalid Interpretation Code 0.00 - 0.19 10^3/mcL AO Auto Heme SS Basophils/100 WBC (Bld) 0.2 % Invalid Interpretation Code 0.0 - 2.5 % AO Auto Heme SS Eosinophil, Absolute 0.10 103/mcL Invalid Interpretation Code 0.00 - 0.40 10^3/mcL AO Auto Heme SS Eosinophils/100 WBC (Bld) 0.8 % Invalid Interpretation Code 0.0 - 7.0 % AO Auto Heme SS Erythrocyte distribution width (RBC) [Ratio] 13.1 % Invalid Interpretation Code 11.5 - 14.5 % AO Auto Heme SS Hematocrit (Bld) [Volume fraction] 38.3 % Invalid Interpretation Code 37.0 - 47.0 % AO Auto Heme SS Hemoglobin (Bld) [Mass/Vol] 13.2 G/dL Invalid Interpretation Code 12.0 - 16.0 G/dL AO Auto Heme SS Lymphocyte, Absolute 2.60 103/mcL Invalid Interpretation Code 0.77 - 3.85 10^3/mcL AO Auto Heme SS Lymphocytes/100 WBC (Bld) 27.0 % Invalid Interpretation Code 10.0 - 50.0 % AO Auto Heme SS MCH (RBC) [Entitic mass] 31.2 pg Invalid Interpretation Code 27.0 - 31.2 pg AO Auto Heme SS MCHC (RBC) [Mass/Vol] 34.6 G/dL Invalid Interpretation Code 33.0 - 37.0 G/dL AO Auto Heme SS MCV (RBC) [Entitic vol] 90.3 fL Invalid Interpretation Code 80.0 - 94.0 fL AO Auto Heme SS Monocyte, Absolute 0.50 103/mcL Invalid Interpretation Code 0.15 - 1.00 10^3/mcL AO Auto Heme SS Monocytes/100 WBC (Bld) 5.5 % Invalid Interpretation Code 1.7 - 13.0 % AO Auto Heme SS Neutrophil, Absolute 6.30 103/mcL Invalid Interpretation Code 2.85 - 6.16 10^3/mcL AO Auto Heme SS Neutrophils/100 WBC (Bld) 66.5 % Invalid Interpretation Code 37.0 - 80.0 % AO Auto Heme SS Platelet mean volume (Bld) [Entitic vol] 10.0 fL Invalid Interpretation Code 7.4 - 10.4 fL AO Auto Heme SS Platelets (Bld) [#/Vol] 302 103/mcL Invalid Interpretation Code 130 - 400 10^3/mcL AO Auto Heme SS RBC (Bld) [#/Vol] 4.24 106/mcL Invalid Interpretation Code 4.20 - 5.40 10^6/mcL AO Auto Heme SS WBC (Bld) [#/Vol] 9.50 103/mcL Invalid Interpretation Code 4.60 - 10.80 10^3/mcL AO Auto Heme SS LABORATORYOrdered By: Penny Barbosa on 03-03-2022 ABO/Rh Interp Negative Invalid Interpretation Code AO BB SS Antibody Screen Gel Positive ABSC (03/03/22 11:55 AM) Invalid Interpretation Code AO BB SS Vit. D 25-Hydroxy 15.1 ng/mL Invalid Interpretation Code AO ADM SS LABORATORYOrdered By: Wyatt Fenton on 03-03-2022 Blood group antibody screen Ql POS (03/03/22 11:55 AM) Invalid Interpretation Code AH BB Auto SS Indirect antiglobulin test.IgG specific reagent Ql Negative (03/03/22 11:55 AM) Invalid Interpretation Code BB Manual SS Passive Anti-D Invalid Interpretation Code BB Manual SS LABORATORYOrdered By: Snapsort on 03-03-2022 Hep B Surf Ag Non-Reactive (03/03/22 11:55 AM) Invalid Interpretation Code Non-Reactiv e AH ADM SS LABORATORYOrdered By: Heide Au on 03-03-2022 HIV 1 p24 Ab Ql (S) Non-Reactive (03/03/22 11:55 AM) Invalid Interpretation Code Non-Reactiv e AO Rapid Testing SS HIV 1+2 Ab IA.rapid Ql (Unsp spec) Non-Reactive (03/03/22 11:55 AM) Invalid Interpretation Code Non-Reactiv e AO Rapid Testing SS HIV P24 Int Non-Reactive Invalid Interpretation Code AO Rapid Testing SS RHIV 1/2 Ab Int Non-Reactive Invalid Interpretation Code AO Rapid Testing SS LABORATORYOrdered By: Vikram Merlos on 03-03-2022 HbA1c (Bld) [Mass fraction] 5.0 % Invalid Interpretation Code 4.3 - 6.4 % AO ADM SS LABORATORYOrdered By: Wilfredo Brown on 03-03-2022 Hep C Ab Non-Reactive (03/03/22 11:54 AM) Invalid Interpretation Code Non-Reactiv e ADM SS Hep C Ab Int Nonreactive: Samples with a value < 0.80 are considered nonreactive (negative) for antibodies to HCV.A negative test result does not exclude the possibility of exposure to or infection with HCV. HCV antibodies may be undetectable in some stages of the infection and in some clinical conditions. Invalid Interpretation Code Chemistry S Laboratory - Specimen inform ationOrdered By: Gifty Darby on 03-03-2022 Specimen source Nom (Unsp spec) Genital Female (03/03/22 1:57 PM) Invalid Interpretation Code AH Auto Viro/Sero SS LABORATORYOrdered By: Monica Kwon on 03-02-2022 ABO/Rh Interp Negative Invalid Interpretation Code AO BB SS Antibody Screen Gel Negative ABSC (03/02/22 1:56 AM) Invalid Interpretation Code AO BB SS Appearance (U) Slightly Cloudy *ABN* (03/02/22 1:56 AM) Invalid Interpretation Code Clear AO Auto Urine SS Bacteria LM.HPF (Urine sed) [#/Area] Trace /HPF Invalid Interpretation Code AO Auto Urine SS Basophil, Absolute 0.00 103/mcL Invalid Interpretation Code 0.00 - 0.19 10^3/mcL AO Auto Heme SS Basophils/100 WBC (Bld) 0.2 % Invalid Interpretation Code 0.0 - 2.5 % AO Auto Heme SS Bilirubin Ql (U) Negative (03/02/22 1:56 AM) Invalid Interpretation Code Negative AO Auto Urine SS Calcium [Mass/Vol] 9.5 mg/dL Invalid Interpretation Code 8.4 - 10.2 mg/dL AO ADM SS Chloride [Moles/Vol] 102 mmol/L Invalid Interpretation Code 98 - 107 mmol/L AO ADM SS CO2 [Moles/Vol] 24 mmol/L Invalid Interpretation Code 22 - 29 mmol/L AO ADM SS Color (U) Yellow (03/02/22 1:56 AM) Invalid Interpretation Code AO Auto Urine SS Creatinine [Mass/Vol] 0.64 mg/dL Invalid Interpretation Code 0.55 - 1.02 mg/dL AO ADM SS Electrolyte Balance 12.0 mEq/L Invalid Interpretation Code 4.0 - 15.0 mEq/L AO ADM SS Eosinophil, Absolute 0.10 103/mcL Invalid Interpretation Code 0.00 - 0.40 10^3/mcL AO Auto Heme SS Eosinophils/100 WBC (Bld) 0.8 % Invalid Interpretation Code 0.0 - 7.0 % AO Auto Heme SS Erythrocyte distribution width (RBC) [Ratio] 13.0 % Invalid Interpretation Code 11.5 - 14.5 % AO Auto Heme SS Glucose [Mass/Vol] 91 mg/dL Invalid Interpretation Code 70 - 105 mg/dL AO ADM SS Glucose Test strip (U) [Mass/Vol] Negative Invalid Interpretation Code Negativemg/ [place] [address].0 m[IU]/mL Invalid Interpretation Code AO ADM SS Hematocrit (Bld) [Volume fraction] 37.0 % Invalid Interpretation Code 37.0 - 47.0 % AO Auto Heme SS Hemoglobin (Bld) [Mass/Vol] 12.7 G/dL Invalid Interpretation Code 12.0 - 16.0 G/dL AO Auto Heme SS Hemoglobin Auto test strip (U) [Mass/Vol] Large *ABN* (03/02/22 1:56 AM) Invalid Interpretation Code Negative AO Auto Urine SS Ketones Ql (U) Negative Invalid Interpretation Code Negativemg/ dL AO Auto Urine SS Lymphocyte, Absolute 4.20 103/mcL Invalid Interpretation Code 0.77 - 3.85 10^3/mcL AO Auto Heme SS Lymphocytes/100 WBC (Bld) 36.2 % Invalid Interpretation Code 10.0 - 50.0 % AO Auto Heme SS MCH (RBC) [Entitic mass] 30.8 pg Invalid Interpretation Code 27.0 - 31.2 pg AO Auto Heme SS MCHC (RBC) [Mass/Vol] 34.2 G/dL Invalid Interpretation Code 33.0 - 37.0 G/dL AO Auto Heme SS MCV (RBC) [Entitic vol] 90.1 fL Invalid Interpretation Code 80.0 - 94.0 fL AO Auto Heme SS Monocyte, Absolute 0.60 103/mcL Invalid Interpretation Code 0.15 - 1.00 10^3/mcL AO Auto Heme SS Monocytes/100 WBC (Bld) 5.4 % Invalid Interpretation Code 1.7 - 13.0 % AO Auto Heme SS Neutrophil, Absolute 6.60 103/mcL Invalid Interpretation Code 2.85 - 6.16 10^3/mcL AO Auto Heme SS Neutrophils/100 WBC (Bld) 57.4 % Invalid Interpretation Code 37.0 - 80.0 % AO Auto Heme SS Platelet mean volume (Bld) [Entitic vol] 10.0 fL Invalid Interpretation Code 7.4 - 10.4 fL AO Auto Heme SS Platelets (Bld) [#/Vol] 309 103/mcL Invalid Interpretation Code 130 - 400 10^3/mcL AO Auto Heme SS Potassium [Moles/Vol] 4.1 mmol/L Invalid Interpretation Code 3.5 - 5.1 mmol/L AO ADM SS RBC (Bld) [#/Vol] 4.11 106/mcL Invalid Interpretation Code 4.20 - 5.40 10^6/mcL AO Auto Heme SS Sodium [Moles/Vol] 138 mmol/L Invalid Interpretation Code 136 - 145 mmol/L AO ADM SS UA Leuk Est Negative (03/02/22 1:56 AM) Invalid Interpretation Code Negative AO Auto Urine SS UA Mucous 1+ /HPF Invalid Interpretation Code AO Auto Urine SS UA Nitrite Negative (03/02/22 1:56 AM) Invalid Interpretation Code Negative AO Auto Urine SS UA pH 6.0 (03/02/22 1:56 AM) Invalid Interpretation Code 5.0 - 8.0 AO Auto Urine SS UA Protein Negative Invalid Interpretation Code Negativemg/ dL AO Auto Urine SS UA RBC LOADED /HPF Invalid Interpretation Code None Seen/HPF AO Auto Urine SS UA Spec Grav >=1.030 *ABN* (03/02/22 1:56 AM) Invalid Interpretation Code 1.015-1.025 AO Auto Urine SS UA Specimen Type Clean Catch (03/02/22 1:56 AM) Invalid Interpretation Code AO Auto Urine SS UA Squam Epithelial 0-5 /HPF Invalid Interpretation Code None Seen/HPF AO Auto Urine SS UA Urobilinogen 0.2 E.U./dL Invalid Interpretation Code 0.2-1.0E.U. /dL AO Auto Urine SS Urea nitrogen [Mass/Vol] 9 mg/dL Invalid Interpretation Code 7 - 18 mg/dL AO ADM SS Urea nitrogen/Creatinine [Mass ratio] 14 ratio Invalid Interpretation Code 7 - 27 ratio AO ADM SS WBC (Bld) [#/Vol] 11.50 103/mcL Invalid Interpretation Code 4.60 - 10.80 10^3/mcL AO Auto Heme SS WBC LM.HPF (Urine sed) [#/Area] 0-5 /HPF Invalid Interpretation Code None Seen/HPF AO Auto Urine SS LABORATORYOrdered By: SYSTEM SYSTEM on 03-02-2022 GFR 145 ml/min/1.73sqm Invalid Interpretation Code AO Chemistry S GFR Non- 120 ml/min/1.73sqm Invalid Interpretation Code AO Chemistry S C Urineon 06-17-2018 C Urine Final Report: Few Mi xed skin contaminants Normal [facility] Comment on above: Performed By: #### [id number] ####DOROTHY Microbiology [id number] [place] [address] POC Urinalysis Dip POCon POC Bilirubin Negative Normal Negative [facility] Comment on above: Performed By: #### C [id number] ####DOROTHY POC [id number] [place] [address] POC Blood Small 1+ Abnormal Negative [facility] Comment on above: Performed By: #### C [id number] ####DOROTHY POC [id number] [place] [address] POC Clarity CLEAR Normal CLEAR [facility] Comment on above: Performed By: #### C [id number] ####DOROTHY POC [id number] [place] [address] POC Color Yellow Normal Yellow [facility] Comment on above: Performed By: #### C [id number] ####DOROTHY POC [id number] [place] [address] POC Glucose Negative Normal Negative [facility] Comment on above: Performed By: #### C [id number] ####DOROTHY POC [id number] [place] [address] POC Ketone Negative Normal Negative [facility] Comment on above: Performed By: #### C [id number] ####DOROTHY POC [id number] [place] [address] POC Leukocyte Trace Normal Negative [facility] Comment on above: Performed By: #### C [id number] ####DOROTHY POC [id number] [place] [address] POC Nitrite Negative Normal Negative [facility] Comment on above: Performed By: #### C [id number] ####DOROTHY POC [id number] [place] [address] POC pH 5.5 mg/dL Normal 5.0-8.0 [facility] Comment on above: Performed By: #### C [id number] ####DOROTHY POC [id number] [place] [address] POC Specific [place] 1.025 mg/dL Normal 1.005-1.035 [facility] Comment on above: Performed By: #### C [id number] ####DOROTHY POC [id number] [place] [address] POC Urobilinogen 0.2 EU/dL Normal 0.2-1.0 [facility] Comment on above: Performed By: #### C [id number] ####DOROTHY POC [id number] [place] [address] Protein mass conc Negative Normal Negative [facility] Comment on above: Performed By: #### C [id number] ####DOROTHY POC [id number] [place] [address] Vital Signs Date Time Vital Sign Value Performing Clinician Facility 07-28-2025 15:43-0400 Body mass index (BMI) [Ratio] 46.79 kg/m2 Link Shaka RN [employer] Work Phone: [facility] 07-28-2025 15:43-0400 Body temperature 98.2 [degF] Link Pendleburak RN [employer] Work Phone: [facility] 07-28-2025 15:43-0400 Body weight 119.8 kg Link Matt RN [employer] Work Phone: [facility] 07-28-2025 15:43-0400 Diastolic blood pressure 72 mm[Hg] Link Shadlebury RN [employer] Work Phone: [facility] 07-28-2025 15:43-0400 Heart rate 96 /min Link Pendleburak RN [employer] Work Phone: [facility] 07-28-2025 15:43-0400 Respiratory rate 16 /min Linkjersey Matt RN [employer] Work Phone: [facility] 07-28-2025 15:43-0400 SaO2% (BldA) [Mass fraction] 99 % Link Matt RN [employer] Work Phone: [facility] 07-28-2025 15:43-0400 Systolic blood pressure 124 mm[Hg] Link Kulkarnileburak RN [employer] Work Phone: [facility] 06-16-2025 17:16-0400 Body mass index (BMI) [Ratio] 46.79 kg/m2 Link Pendleburak RN [employer] Work Phone: [facility] 06-16-2025 17:16-0400 Body temperature 98.29 [degF] Linkjersey Matt RN [employer] Work Phone: [facility] 06-16-2025 17:16-0400 Body weight 119.8 kg Link Shadninfaburak RN [employer] Work Phone: [facility] 06-16-2025 17:16-0400 Diastolic blood pressure 74 mm[Hg] Link Kulkarnininfaburak RN [employer] Work Phone: [facility] 06-16-2025 17:16-0400 Heart rate 112 /min Link Matt RN [employer] Work Phone: [facility] 06-16-2025 17:16-0400 Respiratory rate 16 /min Link Matt RN [employer] Work Phone: [facility] 06-16-2025 17:16-0400 SaO2% (BldA) [Mass fraction] 97 % Link Matt RN [employer] Work Phone: [facility] 06-16-2025 17:16-0400 Systolic blood pressure 122 mm[Hg] Link Matt RN [employer] Work Phone: [facility] 04-16-2025 11:51-0400 Body mass index (BMI) [Ratio] 46.86 kg/m2 Osito Gaxiola RN [employer] Work Phone: [facility] 04-16-2025 11:51-0400 Body temperature 100.09 [degF] Osito Gaxiola RN [employer] Work Phone: [facility] 04-16-2025 11:51-0400 Body weight 120 kg Osito Gaxiola RN [employer] Work Phone: [facility] 04-16-2025 11:51-0400 Diastolic blood pressure 86 mm[Hg] Osito Gaxiola RN [employer] Work Phone: [facility] 04-16-2025 11:51-0400 Heart rate 117 /min Osito Gaxiola APRN.[employer] Work Phone: [facility] 04-16-2025 11:51-0400 Respiratory rate 20 /min Osito Gaxiola APRN.[employer] Work Phone: [facility] 04-16-2025 11:51-0400 SaO2% (BldA) [Mass fraction] 100 % Osito Gaxiola NAZ.[employer] Work Phone: [facility] 04-16-2025 11:51-0400 Systolic blood pressure 110 mm[Hg] Osito Gaxiola NAZ.[employer] Work Phone: [facility] 03-17-2025 14:08-0400 Body height 160.[address] Barry Reeevs MD Work Phone: [facility] 03-17-2025 14:08-0400 Body mass index (BMI) [Ratio] 47.1 kg/m2 Dr. Barry Reeves MD Work Phone: [facility] 03-17-2025 14:08-0400 Body weight 120.[address] Barry Reeves MD Work Phone: [facility] 03-17-2025 14:08-0400 Diastolic blood pressure 79 mm[Hg] Dr. Barry Reeves MD Work Phone: [facility] 03-17-2025 14:08-0400 Heart rate 5 /min Dr. Barry Reeves MD Work Phone: [facility] 03-17-2025 14:08-0400 Respiratory rate 17 /min Dr. Barry Reeves MD Work Phone: [facility] 03-17-2025 14:08-0400 SaO2% (BldA) [Mass fraction] 98 % Dr. Barry Reeves MD Work Phone: [facility] 03-17-2025 14:08-0400 Systolic blood pressure 116 mm[Hg] Dr. Barry Reeves MD Work Phone: [facility] 03-11-2025 05:23-0400 Body temperature 98.1 [degF] Dr. Barry Reeves MD Work Phone: [facility] 03-11-2025 05:23-0400 Diastolic blood pressure 72 mm[Hg] Dr. Barry Reeves MD Work Phone: [facility] 03-11-2025 05:23-0400 Heart rate 74 /min Dr. Barry Reeves MD Work Phone: [facility] 03-11-2025 05:23-0400 Respiratory rate 14 /min Dr. Barry Reeves MD Work Phone: [facility] 03-11-2025 05:23-0400 SaO2% (BldA) [Mass fraction] 99 % Dr. Barry Reeves MD Work Phone: [facility] 03-11-2025 05:23-0400 Systolic blood pressure 119 mm[Hg] Dr. Barry Reeves MD Work Phone: [facility] 03-11-2025 03:37-0400 Body mass index (BMI) [Ratio] 48.2 kg/m2 Dr. Barry Reeves MD Work Phone: [facility] 03-11-2025 03:37-0400 Body weight 123.[address] Barry Reeves MD Work Phone: [facility] 03-09-2025 17:56-0400 Body temperature 98.1 [degF] Dr. Barry Reeves MD Work Phone: [facility] 03-09-2025 17:56-0400 Diastolic blood pressure 67 mm[Hg] Dr. Barry Reeves MD Work Phone: [facility] 03-09-2025 17:56-0400 Heart rate 70 /min Dr. Barry Reeves MD Work Phone: [facility] 03-09-2025 17:56-0400 Respiratory rate 16 /min Dr. Barry Reeves MD Work Phone: [facility] 03-09-2025 17:56-0400 SaO2% (BldA) [Mass fraction] 99 % Dr. Barry Reeves MD Work Phone: [facility] 03-09-2025 17:56-0400 Systolic blood pressure 106 mm[Hg] Dr. Barry Reeves MD Work Phone: [facility] 03-09-2025 14:33-0400 Body height 160.[address] Barry Reeves MD Work Phone: [facility] 03-09-2025 14:33-0400 Body mass index (BMI) [Ratio] 47.5 kg/m2 Dr. Barry Reeves MD Work Phone: [facility] 03-09-2025 14:33-0400 Body weight 121.[address] Barry Reeves MD Work Phone: [facility] 01-22-2025 16:15-0500 Blood Pressure Cuff Size BELINDA PRUITT MD [facility] 01-22-2025 16:15-0500 Blood Pressure Location BELINDA PRUITT MD [facility] 01-22-2025 16:15-0500 Blood Pressure Method BELINDA PRUITT MD [facility] 01-22-2025 16:15-0500 Diastolic Blood Pressure Non-Invasive 74 mm[Hg] BELINDA PRUITT MD [facility] 01-22-2025 16:15-0500 Heart rate 82 /min BELINDA PRUITT MD [facility] 01-22-2025 16:15-0500 Respiratory rate 18 /min BELINDA PRUITT MD [facility] 01-22-2025 16:15-0500 Systolic Blood Pressure Non-Invasive 122 mm[Hg] BELINDA PRUITT MD [facility] 01-22-2025 13:41-0500 Blood Pressure Cuff Size BELINDA PRUITT MD [facility] 01-22-2025 13:41-0500 Blood Pressure Location BELINDA PRUITT MD [facility] 01-22-2025 13:41-0500 Blood Pressure Method BELINDA PRUITT MD [facility] 01-22-2025 13:41-0500 Body height 160 cm BELINDA PRUITT MD [facility] 01-22-2025 13:41-0500 Body temperature 99.14 [degF] BELINDA PRUITT MD [facility] 01-22-2025 13:41-0500 Body weight 120.4 kg BELINDA PRUITT MD [facility] 01-22-2025 13:41-0500 Diastolic Blood Pressure Non-Invasive 82 mm[Hg] BELINDA PRUITT MD [facility] 01-22-2025 13:41-0500 Heart rate 91 /min BELINDA PRUITT MD [facility] 01-22-2025 13:41-0500 Respiratory rate 18 /min BELINDA PRUITT MD [facility] 01-22-2025 13:41-0500 Systolic Blood Pressure Non-Invasive 123 mm[Hg] BELINDA PRUITT MD [facility] 10-05-2024 15:45-0500 Body temperature 98.06 [degF] VERNON BRIONES DO [facility] 10-05-2024 15:45-0500 Diastolic Blood Pressure Non-Invasive 75 mm[Hg] VERNON BRIONES DO [facility] 10-05-2024 15:45-0500 Heart rate 74 /min VERNON BRIONES DO [facility] 10-05-2024 15:45-0500 Respiratory rate 18 /min VERNON BRIONES DO [facility] 10-05-2024 15:45-0500 Systolic Blood Pressure Non-Invasive 112 mm[Hg] VERNON BRIONES DO [facility] 10-04-2024 22:08-0500 Blood Pressure Location BLAINE WHITLEY DO [facility] 10-04-2024 22:08-0500 Blood Pressure Method BLAINE WHITLEY DO [facility] 10-04-2024 22:08-0500 Body height 160 cm BLAINE BARBOSAKA DO [facility] 10-04-2024 22:08-0500 Body temperature 97.88 [degF] BLAINE HALEYESKA DO [facility] 10-04-2024 22:08-0500 Body weight 140.5 kg BLAINE BARBOSAKA DO [facility] 10-04-2024 22:08-0500 Diastolic Blood Pressure Non-Invasive 68 mm[Hg] BLAINE HALEYESKA DO [facility] 10-04-2024 22:08-0500 Heart rate 81 /min BLAINE BARBOSAKA DO [facility] 10-04-2024 22:08-0500 Respiratory rate 16 /min BLAINE WHITLEY DO [facility] 10-04-2024 22:08-0500 Systolic Blood Pressure Non-Invasive 117 mm[Hg] BLAINE WHITLEY DO [facility] 07-04-2024 03:07-0400 Blood Pressure Location FRANKO URBAN MD [facility] 07-04-2024 03:07-0400 Blood Pressure Method FRANKO URBAN MD [facility] 07-04-2024 03:07-0400 Body height 160 cm FRANKO URBAN MD [facility] 07-04-2024 03:07-0400 Body temperature 95.9 [degF] FRANKO URBAN MD [facility] 07-04-2024 03:07-0400 Body weight 104.5 kg FRANKO URBAN MD [facility] 07-04-2024 03:07-0400 Diastolic Blood Pressure Non-Invasive 87 mm[Hg] FRANKO URBAN MD [facility] 07-04-2024 03:07-0400 Heart rate 77 /min FRANKO URBAN MD [facility] 07-04-2024 03:07-0400 Respiratory rate 16 /min FRANKO URBAN MD [facility] 07-04-2024 03:07-0400 Systolic Blood Pressure Non-Invasive 122 mm[Hg] FRANKO URBAN MD [facility] 05-17-2024 16:06-0400 Body mass index (BMI) [Ratio] 41.79 kg/m2 Link Matt APRN.CNP Work Phone: [facility] 05-17-2024 16:06-0400 Body temperature 98.01 [degF] Link Matt RN [employer] Work Phone: [facility] 05-17-2024 16:06-0400 Body weight 107 kg Link Matt RN [employer] Work Phone: [facility] 05-17-2024 16:06-0400 Diastolic blood pressure 66 mm[Hg] Link Matt RN [employer] Work Phone: [facility] 05-17-2024 16:06-0400 Heart rate 78 /min Link Matt RN [employer] Work Phone: [facility] 05-17-2024 16:06-0400 Respiratory rate 18 /min Link Matt RN [employer] Work Phone: [facility] 05-17-2024 16:06-0400 SaO2% (BldA) [Mass fraction] 97 % Link Franklinburak RN [employer] Work Phone: [facility] 05-17-2024 16:06-0400 Systolic blood pressure 120 mm[Hg] Link Matt RN [employer] Work Phone: [facility] 03-30-2024 11:20-0400 Body temperature 98.3 [degF] [facility] 03-30-2024 11:20-0400 Diastolic blood pressure 99 mm[Hg] [facility] 03-30-2024 11:20-0400 Heart rate 75 /min [facility] 03-30-2024 11:20-0400 Respiratory rate 16 /min [facility] 03-30-2024 11:20-0400 SaO2% (BldA) [Mass fraction] 98 % [facility] 03-30-2024 11:20-0400 Systolic blood pressure 139 mm[Hg] [facility] 03-30-2024 07:35-0400 Body mass index (BMI) [Ratio] 42.3 kg/m2 [facility] 03-30-2024 07:35-0400 Body weight 108.4 kg [facility] 03-30-2024 07:26-0400 Body height 160.02 cm [facility] 01-15-2024 08:20-0500 Body height 160 cm Barry Reeves MD Work Phone: [facility] 01-15-2024 08:20-0500 Body temperature 97.59 [degF] Barry Reeves MD Work Phone: [facility] 01-15-2024 08:20-0500 Body weight 107.5 kg Barry Reeves MD Work Phone: [facility] 01-15-2024 08:20-0500 Diastolic blood pressure 72 mm[Hg] Barry Reeves MD Work Phone: [facility] 01-15-2024 08:20-0500 Heart rate 72 /min Barry Reeves MD Work Phone: [facility] 01-15-2024 08:20-0500 Respiratory rate 18 /min Barry Reeves MD Work Phone: [facility] 01-15-2024 08:20-0500 SaO2% (BldA) [Mass fraction] 100 % Barry Reeves MD Work Phone: [facility] 01-15-2024 08:20-0500 Systolic blood pressure 128 mm[Hg] Barry Reeves MD Work Phone: [facility] 01-11-2024 22:56-0500 Diastolic blood pressure 84 mm[Hg] YA CARROLL MD [facility] 01-11-2024 22:56-0500 Heart rate 64 /min YA CARROLL MD [facility] 01-11-2024 22:56-0500 Respiratory rate 16 /min YA CARROLL MD [facility] 01-11-2024 22:56-0500 Systolic blood pressure 122 mm[Hg] YA CARROLL MD [facility] 01-11-2024 21:05-0500 Blood Pressure Cuff Size YA CARROLL MD [facility] 01-11-2024 21:05-0500 Blood Pressure Location YA CARROLL MD [facility] 01-11-2024 21:05-0500 Blood Pressure Method YA CARROLL MD [facility] 01-11-2024 21:05-0500 Body height 160 cm YA CARROLL MD [facility] 01-11-2024 21:05-0500 Body temperature 97.88 [degF] YA CARROLL MD [facility] 01-11-2024 21:05-0500 Body weight 106.8 kg YA CARROLL MD [facility] 01-11-2024 21:05-0500 Diastolic Blood Pressure Non-Invasive 74 mm[Hg] YA CARROLL MD [facility] 01-11-2024 21:05-0500 Heart rate 58 /min YA CARROLL MD [facility] 01-11-2024 21:05-0500 Reason For Taking VItal Signs YA CARROLL MD [facility] 01-11-2024 21:05-0500 Respiratory rate 14 /min YA CARROLL MD [facility] 01-11-2024 21:05-0500 Systolic Blood Pressure Non-Invasive 129 mm[Hg] YA CARROLL MD [facility] 01-11-2024 12:30-0500 Body temperature 98.9 [degF] [facility] 01-11-2024 12:30-0500 Diastolic blood pressure 60 mm[Hg] [facility] 01-11-2024 12:30-0500 Heart rate 64 /min [facility] 01-11-2024 12:30-0500 Respiratory rate 16 /min [facility] 01-11-2024 12:30-0500 SaO2% (BldA) [Mass fraction] 98 % [facility] 01-11-2024 12:30-0500 Systolic blood pressure 109 mm[Hg] [facility] 01-11-2024 08:50-0500 Body height 160.02 cm [facility] 01-11-2024 08:50-0500 Body mass index (BMI) [Ratio] 43.4 kg/m2 [facility] 01-11-2024 08:50-0500 Body weight 111.4 kg [facility] 11-13-2023 08:05-0500 Body temperature 98.24 [degF] KAITLIN CARROLL MD [facility] 11-13-2023 08:05-0500 Diastolic Blood Pressure Non-Invasive 69 mm[Hg] KAITLIN CARROLL MD [facility] 11-13-2023 08:05-0500 Heart rate 77 /min KAITLIN CARROLL MD [facility] 11-13-2023 08:05-0500 Reason For Taking VItal Signs KAITLIN CARROLL MD [facility] 11-13-2023 08:05-0500 Respiratory rate 16 /min KAITLIN CARROLL MD [facility] 11-13-2023 08:05-0500 Systolic Blood Pressure Non-Invasive 115 mm[Hg] KAITLIN CARROLL MD [facility] 11-13-2023 06:36-0500 Body temperature 98.24 [degF] KAITLIN CARROLL MD [facility] 11-13-2023 06:36-0500 Diastolic Blood Pressure Non-Invasive 57 mm[Hg] KAITLIN CARROLL MD [facility] 11-13-2023 06:36-0500 Heart rate 80 /min KAITLIN CARROLL MD [facility] 11-13-2023 06:36-0500 Reason For Taking VItal Signs KAITLIN CARROLL MD [facility] 11-13-2023 06:36-0500 Systolic Blood Pressure Non-Invasive 114 mm[Hg] KAITLIN CARROLL MD [facility] 11-13-2023 04:51-0500 Body temperature 98.42 [degF] KAITLIN CARROLL MD [facility] 11-13-2023 04:51-0500 Diastolic Blood Pressure Non-Invasive 39 mm[Hg] KAITLIN CARROLL MD [facility] 11-13-2023 04:51-0500 Heart rate 80 /min KAITLIN CARROLL MD [facility] 11-13-2023 04:51-0500 Reason For Taking VItal Signs KAITLIN CARROLL MD [facility] 11-13-2023 04:51-0500 Systolic Blood Pressure Non-Invasive 95 mm[Hg] KAITLIN CARROLL MD [facility] 11-12-2023 16:00-0500 Respiratory rate 16 /min KAITLIN CARROLL MD [facility] 11-12-2023 15:00-0500 Respiratory rate 18 /min KAITLIN CARROLL MD [facility] 11-12-2023 10:45-0500 Heart rate 80 /min KAITLIN CARROLL MD [facility] 11-12-2023 10:30-0500 Heart rate 76 /min KAITLIN CARROLL MD [facility] 11-12-2023 10:15-0500 Heart rate 90 /min KAITLIN CARROLL MD [facility] 11-12-2023 09:50-0500 Respiratory Rate - Anes 0 br/min KAITLIN CARROLL MD [facility] 11-12-2023 09:45-0500 Respiratory Rate - Anes 0 br/min KAITLIN CARROLL MD [facility] 11-12-2023 09:40-0500 Respiratory Rate - Anes 0 br/min KAITLIN CARROLL MD [facility] 11-12-2023 05:44-0500 Body height 160 cm KAITLIN CARROLL MD [facility] 11-12-2023 05:44-0500 Body weight 117 kg KAITLIN CARROLL MD [facility] 11-12-2023 05:44-0500 Body weight 45.7 kg/m2 KAITLIN CARROLL MD [facility] 11-12-2023 05:39-0500 Body temperature 98.42 [degF] KAITLIN CARROLL MD [facility] 10-26-2023 08:27-0500 Body height 153.6 cm ETHEL MARTE MD [facility] 10-26-2023 08:27-0500 Body weight 116 kg ETHEL MARTE MD [facility] 10-18-2023 13:46-0500 Body height 160 cm Barry Reeves MD Work Phone: [facility] 10-18-2023 13:46-0500 Body temperature 97.3 [degF] Barry Reeves MD Work Phone: [facility] 10-18-2023 13:46-0500 Body weight 118.39 kg Barry Reeves MD Work Phone: [facility] 10-18-2023 13:46-0500 Diastolic blood pressure 82 mm[Hg] Barry Reeves MD Work Phone: [facility] 10-18-2023 13:46-0500 Heart rate 88 /min Barry Reeves MD Work Phone: [facility] 10-18-2023 13:46-0500 Respiratory rate 18 /min Barry Reeves MD Work Phone: [facility] 10-18-2023 13:46-0500 SaO2% (BldA) [Mass fraction] 96 % Barry Reeves MD Work Phone: [facility] 10-18-2023 13:46-0500 Systolic blood pressure 130 mm[Hg] Barry Reeves MD Work Phone: [facility] 10-13-2023 18:50-0500 Heart rate 117 /min SOCO CAMPUZANO MD [facility] 10-13-2023 18:42-0500 Heart rate 84 /min SOCO CAMPUZANO MD [facility] 10-13-2023 18:30-0500 Body height 160 cm SOCO CAMPUZANO MD [facility] 10-13-2023 18:30-0500 Body weight 117 kg SOCO CAMPUZANO MD [facility] 10-13-2023 18:30-0500 Body weight 45.7 kg/m2 SOCO CAMPUZANO MD [facility] 10-13-2023 18:25-0500 Diastolic Blood Pressure Non-Invasive 64 mm[Hg] SOCO CAMPUZANO MD [facility] 10-13-2023 18:25-0500 Heart rate 124 /min SOCO CAMPUZANO MD [facility] 10-13-2023 18:25-0500 Respiratory rate 18 /min SOCO CAMPUZANO MD [facility] 10-13-2023 18:25-0500 Systolic Blood Pressure Non-Invasive 111 mm[Hg] SOCO CAMPUZANO MD [facility] 10-10-2023 07:55-0500 Body temperature 97.88 [degF] FITO THORNTON MD [facility] 10-10-2023 07:55-0500 Diastolic Blood Pressure Non-Invasive 65 mm[Hg] FITO THORNTON MD [facility] 10-10-2023 07:55-0500 Heart rate 83 /min FITO THORNTON MD [facility] 10-10-2023 07:55-0500 Respiratory rate 18 /min FITO THORNTON MD [facility] 10-10-2023 07:55-0500 Systolic Blood Pressure Non-Invasive 120 mm[Hg] FITO THORNTON MD [facility] 10-10-2023 04:00-0500 Diastolic Blood Pressure Non-Invasive 46 mm[Hg] FITO THORNTON MD [facility] 10-10-2023 04:00-0500 Heart rate 86 /min FITO THORNTON MD [facility] 10-10-2023 04:00-0500 Respiratory rate 16 /min FITO THORNTON MD [facility] 10-10-2023 04:00-0500 Systolic Blood Pressure Non-Invasive 117 mm[Hg] FITO THORNTON MD [facility] 10-09-2023 23:05-0500 Body temperature 98.06 [degF] FITO THORNTON MD [facility] 10-09-2023 23:05-0500 Diastolic Blood Pressure Non-Invasive 63 mm[Hg] FITO THORNTON MD [facility] 10-09-2023 23:05-0500 Heart rate 84 /min FITO THORNTON MD [facility] 10-09-2023 23:05-0500 Reason For Taking VItal Signs FITO THORNTON MD [facility] 10-09-2023 23:05-0500 Respiratory rate 16 /min FITO THORNTON MD [facility] 10-09-2023 23:05-0500 Systolic Blood Pressure Non-Invasive 108 mm[Hg] FITO THORNTON MD [facility] 10-09-2023 16:04-0500 Reason For Taking VItal Signs FITO THORNTON MD [facility] 10-09-2023 11:19-0500 Body height 157.5 cm FITO THORNTON MD [facility] 10-09-2023 11:19-0500 Body weight 116.8 kg FITO THORNTON MD [facility] 10-09-2023 11:19-0500 Body weight 47.08 kg/m2 FITO THORNTON MD [facility] 10-07-2023 15:04-0500 Body height 157.5 cm FITO THORNTON MD [facility] 10-07-2023 15:04-0500 Body weight 116.8 kg FITO THORNTON MD [facility] 10-07-2023 15:04-0500 Body weight 47.08 kg/m2 FITO THORNTON MD [facility] 09-14-2023 08:05-0400 Body temperature 98.6 [degF] KAITLIN CARROLL MD [facility] 09-14-2023 08:05-0400 Diastolic Blood Pressure Non-Invasive 61 1 KAITLIN CARROLL MD [facility] 09-14-2023 08:05-0400 Heart rate 88 /min KAITLIN CARROLL MD [facility] 09-14-2023 08:05-0400 Respiratory rate 16 /min KAITLIN CARROLL MD [facility] 09-14-2023 08:05-0400 Systolic Blood Pressure Non-Invasive 107 1 KAITLIN CARROLL MD [facility] 09-14-2023 02:56-0400 Body height 160 cm KAITLIN CARROLL MD [facility] 09-14-2023 02:56-0400 Body weight 72.7 kg KAITLIN CARROLL MD [facility] 09-14-2023 02:56-0400 Body weight 28.4 kg/m2 KAITLIN CARROLL MD [facility] 09-14-2023 02:47-0400 Body temperature 98.24 [degF] KAITLIN CARROLL MD [facility] 09-14-2023 02:47-0400 Diastolic Blood Pressure Non-Invasive 59 1 KAITLIN CARROLL MD [facility] 09-14-2023 02:47-0400 Heart rate 111 /min KAITLIN CARROLL MD [facility] 09-14-2023 02:47-0400 Reason For Taking VItal Signs KAITLIN CARROLL MD [facility] 09-14-2023 02:47-0400 Respiratory rate 18 /min KAITLIN CARROLL MD [facility] 09-14-2023 02:47-0400 Systolic Blood Pressure Non-Invasive 102 1 KAITLIN CARROLL MD [facility] 09-13-2023 14:05-0400 Blood Pressure Location KAITLIN CARROLL MD [facility] 09-13-2023 14:05-0400 Blood Pressure Method KAITLIN CARROLL MD [facility] 09-13-2023 14:05-0400 Body temperature 97.52 [degF] KAITLIN CARROLL MD [facility] 09-13-2023 14:05-0400 Diastolic Blood Pressure Non-Invasive 75 1 KAITLIN CARROLL MD [facility] 09-13-2023 14:05-0400 Heart rate 104 /min KAITLIN CARROLL MD [facility] 09-13-2023 14:05-0400 Systolic Blood Pressure Non-Invasive 118 1 KAITLIN CARROLL MD [facility] 09-10-2023 13:55-0400 Diastolic Blood Pressure Non-Invasive 60 1 FRANKO URBAN MD [facility] 09-10-2023 13:55-0400 Heart rate 90 /min FRANKO URBAN MD [facility] 09-10-2023 13:55-0400 Respiratory rate 16 /min FRANKO URBAN MD [facility] 09-10-2023 13:55-0400 Systolic Blood Pressure Non-Invasive 100 1 FRANKO URBAN MD [facility] 09-10-2023 12:38-0400 Blood Pressure Cuff Size FRANKO URBAN MD [facility] 09-10-2023 12:38-0400 Blood Pressure Location FRANKO URBAN MD [facility] 09-10-2023 12:38-0400 Blood Pressure Method FRANKO URBAN MD [facility] 09-10-2023 12:38-0400 Body temperature 98.6 [degF] FRANKO URBAN MD [facility] 09-10-2023 12:38-0400 Diastolic Blood Pressure Non-Invasive 77 1 FRANKO URBAN MD [facility] 09-10-2023 12:38-0400 Heart rate 121 /min FRANKO URBAN MD [facility] 09-10-2023 12:38-0400 Respiratory rate 18 /min FRANKO URBAN MD [facility] 09-10-2023 12:38-0400 Systolic Blood Pressure Non-Invasive 110 1 FRANKO URBAN MD [facility] 09-08-2023 10:27-0400 Body temperature 98.8 [degF] Pamela James PA-C Work Phone: [facility] 09-08-2023 10:27-0400 Body weight 118.3 kg Pamela Athy PA-C Work Phone: [facility] 09-08-2023 10:27-0400 Diastolic blood pressure 80 mm[Hg] Pamela Athy PA-C Work Phone: [facility] 09-08-2023 10:27-0400 Heart rate 122 /min Pamela Athy PA-C Work Phone: [facility] 09-08-2023 10:27-0400 Respiratory rate 18 /min Pamela Athy PA-C Work Phone: [facility] 09-08-2023 10:27-0400 SaO2% (BldA) [Mass fraction] 98 % Pamela Athy PA-C Work Phone: [facility] 09-08-2023 10:27-0400 Systolic blood pressure 124 mm[Hg] Pamela Athy PA-C Work Phone: [facility] 08-10-2023 17:00-0400 Diastolic Blood Pressure Non-Invasive 58 1 ETHEL MARTE MD [facility] 08-10-2023 17:00-0400 Heart rate 110 /min ETHEL MARTE MD [facility] 08-10-2023 17:00-0400 Respiratory rate 18 /min ETHEL MARTE MD [facility] 08-10-2023 17:00-0400 Systolic Blood Pressure Non-Invasive 115 1 ETHEL MARTE MD [facility] 08-10-2023 16:52-0400 Body height 160 cm ETHEL MARTE MD [facility] 08-10-2023 16:52-0400 Body weight 111.4 kg ETHEL MARTE MD [facility] 08-10-2023 16:52-0400 Body weight 43.52 kg/m2 ETHEL MARTE MD [facility] 07-22-2023 18:30-0400 Body temperature 99.68 [degF] SOCO CAMPUZANO MD [facility] 07-22-2023 18:30-0400 Reason For Taking VItal Signs SOCO CAMPUZANO MD [facility] 07-22-2023 17:39-0400 Diastolic Blood Pressure Non-Invasive 75 1 SOCO CAMPUZANO MD [facility] 07-22-2023 17:39-0400 Heart rate 140 /min SOCO CAMPUZANO MD [facility] 07-22-2023 17:39-0400 Systolic Blood Pressure Non-Invasive 96 1 SOCO CAMPUZANO MD [facility] 07-22-2023 17:36-0400 Body height 160 cm SOCO CAMPUZANO MD [facility] 07-22-2023 17:36-0400 Body weight 112 kg SOCO CAMPUZANO MD [facility] 07-22-2023 17:36-0400 Body weight 43.75 kg/m2 SOCO CAMPUZANO MD [facility] 07-22-2023 17:35-0400 Body temperature 99.68 [degF] SOCO CAMPUZANO MD [facility] 07-22-2023 17:35-0400 Reason For Taking VItal Signs SOCO CAMPUZANO MD [facility] 07-22-2023 17:35-0400 Respiratory rate 18 /min SOCO CAMPUZANO MD [facility] 07-18-2023 05:00-0400 Body temperature 98.24 [degF] ETHEL MARTE MD [facility] 07-18-2023 05:00-0400 Diastolic Blood Pressure Non-Invasive 71 1 ETHEL MARTE MD [facility] 07-18-2023 05:00-0400 Heart rate 114 /min ETHEL MARTE MD [facility] 07-18-2023 05:00-0400 Systolic Blood Pressure Non-Invasive 119 1 ETHEL MARTE MD [facility] 07-18-2023 04:57-0400 Body height 160 cm ETHEL MARTE MD [facility] 07-18-2023 04:57-0400 Body weight 111.4 kg ETHEL MARTE MD [facility] 07-18-2023 04:57-0400 Body weight 43.52 kg/m2 ETHEL MARTE MD [facility] 05-24-2023 17:22-[address] EASTON ARCHULETA MD [facility] 05-24-2023 17:22-[address] EASTON ARCHULETA MD [facility] 05-24-2023 17:22-0400 Diastolic Blood Pressure Non-Invasive [address] EASTON ARCHULETA MD [facility] 05-24-2023 17:22-0400 Heart rate 99 /min DR EASTON ARCHULETA MD [facility] 05-24-2023 17:22-0400 Respiratory rate 18 /min DR EASTON ARCHULETA MD [facility] 05-24-2023 17:22-0400 Systolic Blood Pressure Non-Invasive [address] EASTON ARCHULETA MD [facility] 05-24-2023 13:56-[address] EASTON ARCHULETA MD [facility] 05-24-2023 13:56-[address] EASTON ARCHULETA MD [facility] 05-24-2023 13:56-0400 Body temperature 98.6 [degF] DR EASTON ARCHULETA MD [facility] 05-24-2023 13:56-0400 Body weight 111.[address] EASTON ARCHULETA MD [facility] 05-24-2023 13:56-0400 Diastolic Blood Pressure Non-Invasive [address] EASTON ARCHULETA MD [facility] 05-24-2023 13:56-0400 Heart rate 105 /min DR EASTON ARCHULETA MD [facility] 05-24-2023 13:56-0400 Respiratory rate 18 /min DR EASTON ARCHULETA MD [facility] 05-24-2023 13:56-0400 Systolic Blood Pressure Non-Invasive [address] EASTON ARCHULETA MD [facility] 05-21-2023 00:40-0400 Diastolic blood pressure 61 mm[Hg] [facility] 05-21-2023 00:40-0400 Heart rate 87 /min [facility] 05-21-2023 00:40-0400 Respiratory rate 16 /min [facility] 05-21-2023 00:40-0400 SaO2% (BldA) [Mass fraction] 99 % [facility] 05-21-2023 00:40-0400 Systolic blood pressure 93 mm[Hg] [facility] 05-20-2023 21:54-0400 Body height 160.02 cm [facility] 05-20-2023 21:54-0400 Body mass index (BMI) [Ratio] 44.8 kg/m2 [facility] 05-20-2023 21:54-0400 Body temperature 98.1 [degF] [facility] 05-20-2023 21:54-0400 Body weight 114.75 kg [facility] 03-26-2023 15:12-0400 Respiratory rate 18 /min [facility] 03-26-2023 13:13-0400 Body height 160.02 cm [facility] 03-26-2023 13:13-0400 Body mass index (BMI) [Ratio] 44.4 kg/m2 [facility] 03-26-2023 13:13-0400 Body temperature 97.5 [degF] [facility] 03-26-2023 13:13-0400 Body weight 113.85 kg [facility] 03-26-2023 13:13-0400 Diastolic blood pressure 58 mm[Hg] [facility] 03-26-2023 13:13-0400 Heart rate 80 /min [facility] 03-26-2023 13:13-0400 SaO2% (BldA) [Mass fraction] 95 % [facility] 03-26-2023 13:13-0400 Systolic blood pressure 121 mm[Hg] [facility] 12-12-2022 09:31-0500 Body temperature 97.9 [degF] Osito Gaxiola APRN.[employer] Work Phone: [facility] 12-12-2022 09:31-0500 Body weight 113.22 kg Osito Gaxiola APRN.[employer] Work Phone: [facility] 12-12-2022 09:31-0500 Diastolic blood pressure 80 mm[Hg] Osito Gaxiola APRN.[employer] Work Phone: [facility] 12-12-2022 09:31-0500 Heart rate 104 /min Osito Gaxiola RN [employer] Work Phone: [facility] 12-12-2022 09:31-0500 Respiratory rate 21 /min Osito Gaxiola RN [employer] Work Phone: [facility] 12-12-2022 09:31-0500 SaO2% (BldA) [Mass fraction] 100 % Osito Gaxiola RN [employer] Work Phone: [facility] 12-12-2022 09:31-0500 Systolic blood pressure 118 mm[Hg] Osito Gaxiola RN [employer] Work Phone: [facility] 08-06-2022 16:02-0400 Body temperature 98.6 [degF] DR VASQUEZ FUNEZ DO [facility] 08-06-2022 16:02-0400 Diastolic blood pressure 83 mm[Hg] DR VASQUEZ FUNEZ DO [facility] 08-06-2022 16:02-0400 Heart rate 92 /min DR VASQUEZ FUNEZ DO [facility] 08-06-2022 16:02-0400 Respiratory rate 20 /min DR VASQUEZ FUNEZ DO [facility] 08-06-2022 16:02-0400 Systolic blood pressure 131 mm[Hg] DR VASQUEZ FUNEZ DO [facility] 07-26-2022 16:49-0400 Body temperature 98.6 [degF] DR EASTON ARCHULETA MD [facility] 07-26-2022 16:49-0400 Diastolic blood pressure 77 mm[Hg] DR EASTON ARCHULETA MD [facility] 07-26-2022 16:49-0400 Heart rate 90 /min DR EASTON ARCHULETA MD [facility] 07-26-2022 16:49-0400 Mean blood pressure 85 mm[Hg] DR EASTON ARCHULETA MD [facility] 07-26-2022 16:49-0400 Respiratory rate 18 /min DR EASTON ARCHULETA MD [facility] 07-26-2022 16:49-0400 Systolic blood pressure 101 mm[Hg] DR EASTON ARCHULETA MD [facility] 07-15-2022 17:11-0400 Body height 160 cm ARTUR GROSS MD [facility] 07-15-2022 17:11-0400 Body temperature 99.68 [degF] ARTUR GROSS MD [facility] 07-15-2022 17:11-0400 Body weight 109.9 kg ARTUR GROSS MD [facility] 07-15-2022 17:11-0400 Diastolic blood pressure 87 mm[Hg] ARTUR GROSS MD [facility] 07-15-2022 17:11-0400 Heart rate 105 /min ARTUR GROSS MD [facility] 07-15-2022 17:11-0400 Height ZScore -0.51 ARTUR GROSS MD [facility] Comment on above: Result Comment: ^~:!ZScore Source -[facility] 07-15-2022 17:11-0400 Percent Height for Age 30.34 1 ARTUR GROSS MD [facility] Comment on above: Result Comment: ^~:!Percentile Source -[facility] 07-15-2022 17:11-0400 Respiratory rate 18 /min ARTUR GROSS MD [facility] 07-15-2022 17:11-0400 Systolic blood pressure 127 mm[Hg] ARTUR GROSS MD [facility] 03-23-2022 23:24-0400 Body weight 111.04 kg Donna Downey RN [employer] Work Phone: [facility] 03-23-2022 23:24-0400 Diastolic blood pressure 68 mm[Hg] Donna Downey RN [employer] Work Phone: [facility] 03-23-2022 23:24-0400 Systolic blood pressure 98 mm[Hg] Donna Downey RN [employer] Work Phone: [facility] 03-04-2022 09:20-0400 Diastolic Blood Pressure NBP 77 1 SOCO CAMPUZANO MD [facility] 03-04-2022 09:20-0400 Heart rate 79 /min SOCO CAMPUZANO MD [facility] 03-04-2022 09:20-0400 Respiratory rate 17 /min SOCO CAMPUZANO MD [facility] 03-04-2022 09:20-0400 Systolic Blood Pressure NBP 123 1 SOCO CAMPUZANO MD [facility] 03-04-2022 09:15-0400 Diastolic Blood Pressure NBP 78 1 SOCO CAMPUZANO MD [facility] 03-04-2022 09:15-0400 Heart rate 88 /min SOCO CAMPUZANO MD [facility] 03-04-2022 09:15-0400 Respiratory rate 18 /min SOCO CAMPUZANO MD [facility] 03-04-2022 09:15-0400 Systolic Blood Pressure NBP 126 1 SOCO CAMPUZANO MD [facility] 03-04-2022 09:10-0400 Diastolic Blood Pressure NBP 106 1 SOCO CAMPUZANO MD [facility] 03-04-2022 09:10-0400 Heart rate 120 /min SOCO CAMPUZANO MD [facility] 03-04-2022 09:10-0400 Respiratory rate 26 /min SOCO CAMPUZANO MD [facility] 03-04-2022 09:10-0400 Systolic Blood Pressure NBP 124 1 SOCO CAMPUZANO MD [facility] 03-04-2022 08:52-0400 Body temperature 97.52 [degF] SOCO CAMPUZANO MD [facility] 03-04-2022 08:13-0400 Body height 160 cm SOCO CAMPUZANO MD [facility] 03-04-2022 08:13-0400 Body temperature 99.86 [degF] SOCO CAMPUZANO MD [facility] 03-04-2022 08:13-0400 Body weight 111.5 kg SOCO CAMPUZANO MD [facility] 03-04-2022 08:13-0400 Heart rate 91 /min SOCO CAMPUZANO MD [facility] 03-04-2022 08:03-0400 Diastolic blood pressure 65 mm[Hg] SOCO CAMPUZANO MD [facility] 03-04-2022 08:03-0400 Heart rate 85 /min SOCO CAMPUZANO MD [facility] 03-04-2022 08:03-0400 Mean blood pressure 85 mm[Hg] SOCO CAMPUZANO MD [facility] 03-04-2022 08:03-0400 Systolic blood pressure 125 mm[Hg] SOCO CAMPUZANO MD [facility] 03-04-2022 06:56-0400 Diastolic blood pressure 72 mm[Hg] SOCO CAMPUZANO MD [facility] 03-04-2022 06:56-0400 Heart rate 60 /min SOCO CAMPUZANO MD [facility] 03-04-2022 06:56-0400 Mean blood pressure 88 mm[Hg] SOCO CAMPUZANO MD [facility] 03-04-2022 06:56-0400 Systolic blood pressure 119 mm[Hg] SOCO CAMPUZANO MD [facility] 03-04-2022 04:39-0400 Body temperature 98.06 [degF] SOCO CAMPUZANO MD [facility] 03-04-2022 04:39-0400 Body weight 111.5 kg SOCO CAMPUZANO MD [facility] 03-04-2022 04:39-0400 Diastolic blood pressure 82 mm[Hg] SOCO CAMPUZANO MD [facility] 03-04-2022 04:39-0400 Systolic blood pressure 127 mm[Hg] SOCO CAMPUZANO MD [facility] 03-02-2022 01:34-0400 Body temperature 98.24 [degF] ALEJANDRO MOREIRAT DO [facility] 03-02-2022 01:34-0400 Diastolic blood pressure 71 mm[Hg] ALEJANDRO FROMMELT DO [facility] 03-02-2022 01:34-0400 Heart rate 80 /min ALEJANDRO FROMMELT DO [facility] 03-02-2022 01:34-0400 Respiratory rate 16 /min ALEJANDRO FROMMELT DO [facility] 03-02-2022 01:34-0400 Systolic blood pressure 108 mm[Hg] ALEJANDRO BLISS DO [facility] Encounters Encounter Date Encounter Type Care Provider Facility Start: 07-31-2025 End: 07-31-2025 Telephone encounter Barry Reeves MD Work Phone: [facility] Comment on above: Appointment Start: 07-28-2025 End: 07-28-2025 Office outpatient visit 15 minutes Link Matt RN [employer] Work Phone: [facility] Comment on above: Acute otitis externa of right ear, unspecified type (Primary Dx) Start: 07-28-2025 End: 07-28-2025 ambulatory BARRY REEVES Facility:[facility] Start: 06-26-2025 End: 06-26-2025 Patient encounter procedure Rajesh Linares [facility] Work Phone: Start: 06-26-2025 End: 06-26-[address] Barry Reeves MD Work Phone: [facility] Start: 06-16-2025 End: 06-16-2025 Office outpatient visit 25 minutes Link Matt RN [employer] Work Phone: [facility] Comment on above: Acute otitis media, right (Primary Dx) Start: 06-16-2025 End: 06-16-2025 ambulatory BARRY REEVES Facility:[facility] Start: 04-16-2025 End: 04-16-2025 Subsequent hospital visit by physician [facility] Work Phone: Radiology Comment on above: Acute cough [R05.1] Start: 04-16-2025 End: 04-16-2025 Patient encounter procedure Osito Gaxiola RN [employer] Work Phone: [facility] Comment on above: Community acquired p neumonia, unspecified laterality (Primary Dx); Acute cough; Sore throat Start: 04-16-2025 End: 04-16-2025 ambulatory BRARY BELRTE LEANDRO Facility:[facility] Start: 04-09-2025 ambulatory Luis Alberto Hoffman lity:[facility] Start: 03-17-2025 End: 03-17-[address] Luis Alberto Be MD -[facility] Work Phone: Start: 03-17-2025 End: 03-17-2025 ambulatory Barry Leandro [facility] Start: 03-12-2025 End: 03-12-2025 Patient encounter procedure Reese King DO -Ultras[facility] Work Phone: Start: 03-12-2025 End: 03-12-2025 ambulatory Barry Leandro Facility:[facility] Start: 03-11-2025 End: 03-11-2025 Emergency department patient visit Reese King DO -Emergency Department Work Phone: Start: 03-09-2025 End: 03-09-2025 Emergency department patient visit Dr. Barry Reeves MD Work Phone: -Emergency Department Work Phone: Start: 01-22-2025 End: 01-22-2025 Emergency department patient visit BELINDA PRUITT MD [facility] Start: 10-05-2024 End: 10-05-2024 Emergency department patient visit VERNON BRIONES DO [facility] Start: 10-04-2024 End: 10-04-2024 Emergency department patient visit BLAINE WHITLEY DO [facility] Start: 07-04-2024 End: 07-04-2024 Emergency department patient visit FRANKO URBAN MD [facility] Start: 07-03-2024 End: 07-03-2024 Emergency department patient visit [facility] Start: 06-19-2024 End: 06-23-2024 ambulatory KAITLIN CARROLL MD Facility:[facility] Start: 06-19-2024 End: 06-23-2024 Outreach Lab KAITLIN CARROLL MD [facility] Start: 06-04-2024 End: 06-04-2024 ambulatory KAITLIN CARROLL MD Facility:[facility] Start: 06-04-2024 End: 06-04-2024 Patient encounter procedure KAITLIN CARROLL MD [facility] Start: 05-17-2024 End: 05-17-2024 Office outpatient visit 15 minutes Link Matt APRN.[facility] Work Phone: [facility] Comment on above: Urinary frequency (P rimary Dx); Dysuria Start: 04-01-2024 ambulatory Rae Vgea RN [facility] [employer] Start: 04-01-2024 Follow-up encounter Rae Peck [facility] Comment on above: See Wheeler - E D Follow Up Start: 03-30-2024 Patient encounter procedure [facility] Provider [facility] Start: 03-30-2024 End: 03-30-2024 Emergency department patient visit [facility] Department Work Phone: Start: 01-15-2024 End: 01-15-2024 Office outpatient visit 15 minutes Barry Reeves MD Work Phone: [facility] [place] Comment on above: Atypical chest pain (Primary Dx); Anxiety Start: 01-11-2024 End: 01-11-2024 Emergency department patient visit YA CARROLL MD [facility] Start: 01-11-2024 End: 01-11-2024 Emergency department patient visit [facility] Work Phone: Start: 11-12-2023 End: 11-13-2023 Evaluation and management of inpatient KAITLIN CARROLL MD [facility] Start: 11-07-2023 End: 11-07-2023 ambulatory ETHEL MARTE MD Facility:[facility] Start: 11-03-2023 End: 11-03-2023 ambulatory ETHEL MARTE MD Facility:[facility] Start: 11-03-2023 End: 11-03-2023 Patient encounter procedure ETHEL MARTE MD [facility] Start: 10-31-2023 End: 10-31-2023 ambulatory ETHEL MARTE MD Facility:[facility] Start: 10-31-2023 End: 10-31-2023 Patient encounter procedure ETHEL MARTE MD [facility] Start: 10-27-2023 End: 10-27-2023 ambulatory ETHEL MARTE MD Facility:[facility] Start: 10-26-2023 End: 10-26-2023 Admission to establishment ETHEL MARTE MD [facility] Start: 10-26-2023 End: 10-26-2023 ambulatory ETHEL MARTE MD Facility:[facility] Start: 10-24-2023 End: 10-24-2023 ambulatory SOCO Adele [facility] Start: 10-20-2023 End: 10-20-2023 ambulatory ETHEL MARTE MD Facility:[facility] Start: 10-20-2023 End: 10-20-2023 Patient encounter procedure ETHEL MARTE MD [facility] Start: 10-19-2023 ambulatory ETHEL MARTE MD Facili ty:B Start: 10-18-2023 End: 10-18-2023 Patient encounter status Barry Reeves MD Work Phone: [facility] Work Phone: Start: 10-18-2023 End: 10-18-2023 Periodic preventive med est patient 18-39 yrs Barry Reeves MD Work Phone: [facility] Comment on above: Wellness examination (Primary Dx); Screening for deficiency anemia; Lipid screening; Steatosis of liver; 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) (HCC); Anxiety; Depression, unspecified depression type; and not yet delivered in third trimester Start: 10-17-2023 End: 10-17-2023 ambulatory SOCO CAMPUZANO MD Facility:[facility] Start: 10-17-2023 End: 10-17-2023 Patient encounter procedure SOCO CAMPUZANO MD [facility] Start: 10-13-2023 End: 10-13-2023 ambulatory SOCO CAMPUZANO MD Facility:[facility] Start: 10-13-2023 End: 10-13-2023 SAME DAY STAY SOCO CAMPUZANO MD [facility] Start: 10-13-2023 End: 10-13-2023 Emergency department patient visit GINA GONZALEZ MD [facility] Start: 10-13-2023 End: 10-13-2023 ambulatory SOCO CAMPUZANO MD Facility:[facility] Start: 10-13-2023 End: 10-13-2023 Patient encounter procedure SOCO CAMPUZANO MD [facility] Start: 10-07-2023 End: 10-10-2023 Evaluation and management of inpatient FITO THORNTON MD [facility] Start: 10-07-2023 Chart abstracting Barry Reeves MD Work Phone: [facility] Comment on above: Results Start: 10-06-2023 End: 10-07-2023 ambulatory ANTONIO BRIZUELA APRN-CNM Facility:[facility] Start: 10-06-2023 End: 10-06-2023 ambulatory SOCO CAMPUZANO MD Facility:[facility] Start: 10-06-2023 End: 10-06-2023 Patient encounter procedure SOCO CAMPUZANO MD [facility] Start: 10-03-2023 End: 10-03-2023 ambulatory SOCO CAMPUZANO MD Facility:[facility] Start: 10-03-2023 End: 10-03-2023 Patient encounter procedure SOCO CAMPUZANO MD [facility] Start: 09-29-2023 End: 09-29-2023 ambulatory SOCO CAMPUZANO MD Facility:[facility] Start: 09-29-2023 End: 09-29-2023 Patient encounter procedure SOCO CAMPUZANO MD [facility] Start: 09-28-2023 Patient encounter procedure Ccf Provider [facility] Start: 09-26-2023 End: 09-26-2023 ambulatory SOCO CAMPUZANO [facility] Start: 09-26-2023 Patient encounter procedure Ccf Provider [facility] Start: 09-22-2023 End: 09-22-2023 ambulatory SOCO CAMPUZANO MD Facility:[facility] Start: 09-22-2023 End: 09-22-2023 Patient encounter procedure SOCO CAMPUZANO MD [facility] Start: 09-19-2023 End: 09-19-2023 ambulatory SOCO CAMPUZANO MD Facility:[facility] Start: 09-19-2023 End: 09-19-2023 Patient encounter procedure SOCO CAMPUZANO MD [facility] Start: 09-18-2023 End: 09-22-2023 ambulatory KAITLIN CARROLL MD Facility:[facility] Start: 09-18-2023 End: 09-22-2023 Outreach Lab KAITLIN CARROLL MD [facility] Start: 09-15-2023 End: 09-15-2023 ambulatory SOCO CAMPUZANO MD Facility:[facility] Start: 09-15-2023 End: 09-15-2023 Patient encounter procedure SOCO CAMPUZANO MD [facility] Start: 09-14-2023 ambulatory SOCO CAMPUZANO MD Facilit y:B Start: 09-14-2023 End: 09-14-[address] BARRY REEVES MD Facility:[facility] Start: 09-14-2023 End: 09-14-2023 SAME DAY STAY KAITLIN CARROLL MD [facility] Start: 09-13-2023 End: 09-13-2023 ambulatory KAITLIN CARROLL MD Facility:[facility] Start: 09-13-2023 End: 09-13-2023 SAME DAY STAY KAITLIN CARROLL MD [facility] Start: 09-12-2023 End: 09-12-2023 SAME DAY STAY SOCO CAMPUZANO MD [facility] Start: 09-12-2023 End: 09-12-2023 ambulatory SOCO CAMPUZANO MD Facility:[facility] Start: 09-12-2023 ambulatory SOCO CAMPUZANO MD Facilit y:[facility] Start: 09-10-2023 End: 09-10-2023 Emergency department patient visit FRANKO URBAN MD [facility] Start: 09-08-2023 End: 09-08-2023 ambulatory SOCO CAMPUZANO MD Facility:[facility] Start: 09-08-2023 End: 09-08-2023 Patient encounter procedure SOCO CAMPUZANO MD [facility] Start: 09-08-2023 End: 09-08-2023 Patient encounter procedure Pamela James PA-C Work Phone: [facility] Comment on above: Viral illness (Prima ry Dx) Start: 09-05-2023 End: 09-05-2023 ambulatory SOCO CAMPUZANO MD Facility:[facility] Start: 09-05-2023 End: 09-05-2023 Patient encounter procedure SOCO CAMPUZANO MD [facility] Start: 09-01-2023 End: 09-01-2023 ambulatory SOCO CAMPUZANO MD Facility:[facility] Start: 08-28-2023 End: 08-28-2023 ambulatory SOCO CAMPUZANO MD Facility:[facility] Start: 08-10-2023 End: 08-10-2023 ambulatory ETHEL MARTE MD Facility:[facility] Start: 08-10-2023 End: 08-10-2023 SAME DAY STAY ETHEL MARTE MD [facility] Start: 08-06-2023 End: 08-06-2023 ambulatory ETHEL MARTE MD Facility:[facility] Start: 07-22-2023 End: 07-22-2023 ambulatory SOCO CAMPUZANO MD Facility:[facility] Start: 07-22-2023 End: 07-22-2023 SAME DAY STAY SOCO CAMPUZANO MD [facility] Start: 07-18-2023 End: 07-18-2023 ambulatory ETHEL MARTE MD Facility:B Start: 07-18-2023 End: 07-18-2023 SAME DAY STAY ETHEL MARTE MD [facility] Start: 07-05-2023 End: 07-05-2023 ambulatory SOCO CAMPUZANO [facility] Start: 06-15-2023 End: 06-15-[address] INDU BENÍTEZ MD [facility] Start: 06-15-2023 End: [facility] Start: 06-07-2023 End: 06-07-2023 ambulatory [facility] Start: 05-24-2023 End: 05-24-2023 Emergency department patient visit DR EASTON ARCHULETA MD [facility] Start: 05-21-2023 Patient encounter procedure [facility] Provider [facility] Start: 05-20-2023 End: 05-21-2023 [facility] Start: 05-01-2023 End: 05-05-2023 Outreach Lab SOCO CAMPUZANO MD [facility] Start: 04-18-2023 End: 04-18-2023 Patient encounter procedure SOCO CAMPUZANO MD [facility] Start: 04-03-2023 End: 04-03-2023 Patient encounter procedure SOCO CAMPUZANO MD [facility] Start: 03-27-2023 Patient encounter procedure C[facility] Provider [facility] Start: 03-26-2023 End: 03-26-2023 [facility] Start: 03-20-2023 End: 03-20-2023 Patient encounter procedure ELLEN CHILDRESS RN IMC[facility]-[employer]ANDY [employer] [facility] Start: 03-15-2023 End: 03-15-2023 Patient encounter procedure KAITLIN CARROLL MD [facility] Start: 03-13-2023 End: 03-13-2023 Patient encounter procedure ELLEN CHILDRESS RN [facility]MC[employer] [facility] Start: 03-08-2023 End: 03-08-2023 Patient encounter procedure ELLEN CHILDRESS RN [employer]MC[employer]Y [employer] [facility] Start: 12-12-2022 End: 12-12-2022 Patient encounter procedure Osito Gaxiola RN [employer] Work Phone: [facility] Comment on above: URI, acute (Primary Dx); Sore throat; History of asthma Start: 09-27-2022 Patient encounter procedure Ccf Provider [facility] Start: 09-24-2022 Patient encounter procedure Ccf Provider [facility] Start: 08-30-2022 End: 09-03-2022 Outreach Lab SOCO CAMPUZANO MD [facility] Start: 08-30-2022 End: 08-30-2022 Patient encounter procedure SOCO CAMPUZANO MD [facility] Start: 08-08-2022 End: 08-08-2022 Patient encounter procedure EASTON TEE MD [facility] Start: 08-06-2022 End: 08-06-2022 Emergency department patient visit DR VASQUEZ FUNEZ DO [facility] Start: 08-06-2022 End: 08-06-2022 Patient encounter procedure Jolanta Robert RN [employer]MC[employer] Work Phone: [facility] Comment on above: Generalized abdomina l pain (Primary Dx) Start: 08-01-2022 End: 08-05-2022 Outreach Lab KAITLIN CARROLL MD [facility] Start: 08-01-2022 End: 08-01-2022 Patient encounter procedure KAITLIN CARROLL MD [facility] Start: 07-27-2022 End: 07-27-2022 Patient encounter procedure SOCO CAMPUZANO MD [facility] Start: 07-26-2022 End: 07-26-2022 Emergency department patient visit DR EASTON ARCHULETA MD [facility] Start: 07-20-2022 End: 07-20-2022 Patient encounter procedure ETHEL MARTE MD [facility] Start: 07-18-2022 End: 07-18-2022 Patient encounter procedure ETHEL MARTE MD [facility] Start: 07-15-2022 End: 07-15-2022 Emergency department patient visit ARTUR GROSS MD [facility] Start: 07-14-2022 End: 07-14-2022 Patient encounter procedure SOCO CAMPUZANO MD [facility] Start: 07-06-2022 Telephone encounter Jolanta Robert APRN.[employer]DER Work Phone: [facility] Comment on above: Results Start: 07-01-2022 Refill Barry Ribera MD Work Phone: [facility] Comment on above: Refill Request Start: 06-22-2022 Chart abstracting Donna mcnair APRN.HAND [employer]Y MOLDER Work Phone: [facility] Start: 06-06-2022 Telephone encounter Barry Reeves MD Work Phone: [facility] Comment on above: Patient Question Start: 03-23-2022 End: 03-23-2022 Patient encounter procedure SOCO CAMPUZANO MD [facility] Start: 03-11-2022 End: 03-11-2022 Patient encounter procedure KAITLIN CARROLL MD [facility] Start: 03-04-2022 End: 03-04-2022 SAME DAY STAY SOCO CAMPUZANO MD [facility] Start: 03-03-2022 End: 03-07-2022 Outreach Lab ETHEL MARTE MD [facility] Start: 03-03-2022 End: 03-03-2022 Patient encounter procedure ETHEL MARTE MD [facility] Start: 03-02-2022 End: 03-02-2022 Emergency department patient visit ALEJANDRO HARISHAyse BEGUM [facility] Start: 02-14-2022 End: 02-14-2022 Patient encounter procedure ILSA MASCORRO RN IMCU-CNM [facility] Start: 02-08-2022 End: 02-08-2022 Patient encounter procedure ILSA MASCORRO RN IMCU-CNM [facility] Start: 08-31-2018 Patient encounter Barry hernandezty:[facility] Start: 06-15-2018 End: 06-16-2018 Patient encounter Elvira Momin Facility:[facility] Start: 06-15-2018 Patient encounter Facil [id number] Procedures Date Procedure Procedure Detail Performing Clinician Start: 04-16-2025 Radiologic exam ches t 2 views Osito Gaxiola APRN.HAND CANDY MOLDER Work Phone: Start: 04-16-2025 STREP A MOLECULAR (POC) [facility] Provider Start: 03-12-[address] Barry Reeves MD Work Phone: Start: 03-11-[address] Barry Reeves MD Work Phone: Start: 03-09-2025 Urnls dip stick/tabl et reagent auto microscopy Dr. Barry Reeves MD Work Phone: Start: 03-09-2025 Computed tomography of abdomen and pelvis with intravenous contrast Dr. Barry Reeves MD Work Phone: Start: 03-09-[address] Barry Reeves MD Work Phone: Start: 05-17-2024 Urnls dip stick/tabl et rgnt auto w/o microscopy Jolanta Robert RN [employer]MC[employer] Work Phone: Start: 03-30-2024 Plain chest X-ray Start: 01-11-2024 CT angiography of ch est with contrast Start: 10-07-2023 Hemoglobin A1c/Hemoglobin.total in Blood Fito Thornton MD Work Phone: Start: 09-08-2023 INFLUENZA A&B MOLECU LAR (POC) Pamela James PA-C Work Phone: Start: 09-08-2023 STREP A MOLECULAR (POC) Pamela James PA-C Work Phone: Start: 12-12-2022 STREP A MOLECULAR (POC) Osito Gaxiola APRN.[employer] M[employer]DER Work Phone: Start: 02-18-2022 Dilation and curettage SOCO CAMPUZANO MD Start: 11-20-2004 Tonsillectomy KAITLIN CARROLL MD Tonsillectomy ILSA MASCORRO APRN-[facility] Tonsillectomy Tonsillectomy( Confirmed ) ILSA LUDWIN [facility] Tooth extraction ILSA SUMNER [facility] Comment on above: [place] [facility] Plan of Treatment Date Care Activity Detail Author Start: 09-05-2033 Urine microalbumin profile DTaP,Tdap,Td Vaccine (8 - Td or Tdap) [facility] Start: 07-21-[address] [facility] Start: 05-17-2025 GC (Gonorrhea) Scree frida (18-24) GC (Gonorrhea) Screening () [facility] Start: 05-17-2025 Screening for Chlamy verónica trachomatis Chlamydia Screening () [facility] Start: 03-11-2025 [facility] Start: 03-09-2025 [facility] Start: 01-15-2025 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 Annual PCP Team Chronic Disease Visit [facility] Start: 10-18-2024 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 Annual PCP Team Chronic Disease Visit [facility] Start: 07-21-2024 Covid-19 Vaccine ( season) Covid-19 Vaccine ( season) [facility] Start: 07-21-2024 Influenza vaccination Influenz a Vaccine (Season Ended) [facility] Start: 05-03-2024 Chlamydia Screening (1824) Chlamydia Screening (18-24) [facility] Start: 05-03-2024 GC (Gonorrhea) Scree frida (18-24) GC (Gonorrhea) Screening (18-) [facility] Start: 05-03-2024 Screening for Chlamy verónica trachomatis Chlamydia Screening () [facility] Start: 04-06-2024 Hemoglobin A1c measurement HbA1C [facility] Start: 03-30-2024 [facility] Start: 03-30-2024 [facility] Start: 01-11-2024 [facility] Start: 01-11-2024 [facility] Start: 11-07-2023 ANNUAL PCP TEAM 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 Work Phone: Comment on above: Expected: 10/18/2023 , Expires: 01/17/2024 Start: 10-18-2023 End: 01-17-2024 Comprehensive metabolic 2000 panel - Serum or Plasma COMP METABOLIC PANEL Lab Routine Wellness examination Expected: 10/18/2023, Expires: 01/17/[address] [facility] Work Phone: Comment on above: Expected: 10/18/2023 , Expires: 01/17/2024 Start: 10-18-2023 End: 01-17-2024 Lipid 1996 panel - Serum or Plasma LIPID PANEL BASIC Lab Routine Lipid screening Expected: 10/18/2023, Expires: 01/17/[address] [facility] Work Phone: Comment on above: Expected: 10/18/2023 , Expires: 01/17/2024 Start: 07-21-2023 Covid-19 Vaccine ( season) Covid-19 Vaccine ( season) [facility] Start: 07-21-2023 Influenza vaccination [facility] Start: 2023 Pap Testing Pap Testing [facility] Start: 2023 Screening for malign ant neoplasm of cervix [facility] Start: 03-26-2023 Administration of bl ood product [facility] Start: 07-21-2022 Influenza vaccination INFLUENZA (#1) [facility] Start: 11-20-2021 DEPRESSION ASSESSMENT DEPRESSION ASS ESSMENT [facility] Start: 2021 Pneumococcal vaccination Pneum ococcal Vaccine (1 of 2 - PCV) [facility] Start: 2021 Urine microalbumin profile DTAP,TDAP,TD (1 - Tdap) [facility] Start: 2020 CHLAMYDIA SCREENING () CHLAMYDIA SCREENING (-) [facility] Start: 2020 GC (GONORRHEA) SCREE FRIDA (18-24) GC (GONORRHEA) SCREENING (18-24) [facility] Start: 2020 Hepatitis B surface antibody level LDL CHOLESTEROL [facility] Start: 2020 HEPATITIS C SCREENING HEPATITIS C SC REENING [facility] Start: 2020 HIV SCREENING HIV SCREENING [facility] Start: 2018 Meningococcal B Vacc ine (1 of 2 - Standard) Meningococcal B Vaccine (1 of 2 - Standard) [facility] Start: 2018 Meningococcal B Vacc ine: Consider Based On Risk (1 of 2 - Patient Seeks Protection) Meningococcal B Vaccine: Consider Based On Risk (1 of 2 - Patient Seeks Protection) [facility] Start: 2016 PEDS TO ADULT TRANSI TION ANNUAL ASSESSMENT PEDS TO ADULT TRANSITION ANNUAL ASSESSMENT [facility] Start: 2014 Adult depression screening assessment DEPRESSION SCREENING [facility] Start: 2014 PEDS TO ADULT TRANSI TION INITIAL DISCUSSION PEDS TO ADULT TRANSITION INITIAL DISCUSSION [facility] Start: 2013 HPV VACCINE (1 - 2-d ose series) HPV VACCINE (1 - 2-dose series) [facility] Start: 2012 3 comp foot exam completed DIABETIC FOOT EXAM [facility] Start: 2012 Diabetic foot examination Diabetic Foot Exam [facility] Start: 2012 Glaucoma screening Dilated Retinal E xam [facility] Start: 2012 Hepatitis B screening URINE ALBUMIN:CREATININE RATIO [facility] Start: 2012 Hepatitis C antibody , confirmatory test DILATED RETINAL EXAM [facility] Start: 2012 MENINGOCOCCAL B: Consider based on risk (1 of 2 - Risk Bexsero 2-dose series) MENINGOCOCCAL B: Consider based on risk (1 of 2 - Risk Bexsero 2-dose series) [facility] Start: 2011 HPV VACCINE (1 - 2-d ose series) HPV VACCINE (1 - 2-dose series) [facility] Start: 2008 PNEUMOCOCCAL (1 - PCV) PNEUMOCOCCAL (1 - PCV) [facility] Start: 2008 Pneumococcal vaccination [facility] Start: 2007 Hemoglobin A1c/Hemoglobin.total in Blood HBA1C [facility] Start: 01-17-2003 COVID-19 VACCINE (#1) COVID-19 VACCI NE (#1) [facility] Start: 2002 HEPATITIS B (1 of 3 - 3-dose series) HEPATITIS B (1 of 3 - 3-dose series) [facility] ALERE STREP A TEST (AG) ALERE ST REP A TEST (AG) Lab Routine Sore throat Ordered: 04/16/[address] [facility] Work Phone: Comment on above: Ordered: 04/16/2025 Bacteria identified in Urine by Culture URINE CULTURE Microbiology Routine Urinary frequency Ordered: 05/17/[address] [facility] Work Phone: Comment on above: Ordered: 05/17/2024 BACTERIAL VAGINOSIS NAAT BACTERI AL VAGINOSIS NAAT Lab Routine Dysuria Ordered: 05/17/2024 [facility] Comment on above: Ordered: 05/17/2024 EVANS/TRICHOMONAS NAAT EVANS /TRICHOMONAS NAAT Lab Routine Dysuria Ordered: 05/17/2024 [facility] Comment on above: Ordered: 05/17/2024 Chlamydia trachomatis+Neisseria gonorrhoeae DNA [Presence] in Unspecified specimen by FRANCOISE with probe detection GONORRHEA/CHLAMYDIA NAAT Lab Routine Dysuria Ordered: 05/17/2024 [facility] Comment on above: Ordered: 05/17/2024 Influenza virus A an d B RNA and SARS-CoV-2 (COVID-19) N gene panel - Respiratory specimen by FRANCOISE with probe detection COVID WITH FLUA+B, ROUTINE Microbiology Routine URI, acute 12/12/2022 9:52 AM EST [facility] Work Phone: Patient Education [facility] Work Phone: Patient referral [facility] Work Phone: SARS-CoV-2 (COVID-19 ) RNA [Presence] in Respiratory specimen by FRANCOISE with probe detection COVID NAAT, UPPER RESPIRATORY, ROUTINE Microbiology Routine Viral illness 09/08/2023 10:49 AM EDT [facility] Work Phone: [facility] Immunizations Immunization Date Immunization Notes Care Provider Joselito hollingsworth 09-25-2023 tuberculin skin test ; purified protein derivative, multipuncture device Osito Gaxiola APRN.HAND CANDY MOLDER Work Phone: [facility] 09-05-2023 tetanus toxoid, redu mihai diphtheria toxoid, and acellular pertussis vaccine, adsorbed; Translations: [Boostrix (Tdap)] SOCO CAMPUZANO MD [facility] 09-23-2022 tuberculin skin test ; purified protein derivative solution, intradermal Osito Gaxiola APRN.HAND CANDY MOLDER Work Phone: [facility] 02-23-2021 hepatitis B vaccine, pediatric or pediatric/adolescent dosage Pamela James PA-C Work Phone: [facility] 02-23-2021 measles, mumps and rubella virus vaccine Pamela James PA-C Work Phone: [facility] 02-23-2021 varicella virus vaccine Pamela James PA-C Work Phone: [facility] 10-27-2020 influenza, injectabl e, quadrivalent, preservative free Pamela James PA-C Work Phone: [facility] 10-27-2020 influenza virus vacc ine, unspecified formulation Pamela James PA-C Work Phone: [facility] 06-26-2019 hepatitis A vaccine, pediatric/adolescent dosage, 2 dose schedule Pamela James PA-C Work Phone: [facility] 06-26-2019 Human Papillomavirus 9-valent vaccine Pamela James PA-C Work Phone: [facility] 06-26-2019 meningococcal oligosaccharide (groups A, C, Y and W-135) diphtheria toxoid conjugate vaccine (MCV4O) Pamela James PA-C Work Phone: [facility] 06-26-2015 human papilloma viru s vaccine, quadrivalent Paemla James PA-C Work Phone: [facility] 06-26-2015 tetanus toxoid, redu mihai diphtheria toxoid, and acellular pertussis vaccine, adsorbed Pamela Athy PA-C Work Phone: [facility] 05-07-2007 diphtheria, tetanus toxoids and acellular pertussis vaccine, unspecified formulation Pamelaalla Proctorena PA-C Work Phone: [facility] 05-07-2007 hepatitis A vaccine, pediatric/adolescent dosage, 2 dose schedule Pamela Hiteshena PA-C Work Phone: [facility] 05-07-2007 measles, mumps and rubella virus vaccine Pamela Athy PA-C Work Phone: [facility] 05-07-2007 measles, mumps, rube lla, and varicella virus vaccine Pamela Hiteshy PA-C Work Phone: [facility] 05-07-2007 poliovirus vaccine, inactivated Pamela James PA-C Work Phone: [facility] 05-07-2007 varicella virus vaccine Pamela Erika PA-C Work Phone: [facility] 06-30-2004 diphtheria, tetanus toxoids and acellular pertussis vaccine, unspecified formulation Pamela James PA-C Work Phone: [facility] 06-30-2004 haemophilus influenz ae type b vaccine, PRP-T conjugate Pamela James PA-C Work Phone: [facility] 06-30-2004 hepatitis B vaccine, pediatric or pediatric/adolescent dosage Pamela James PA-C Work Phone: [facility] 09-17-2003 measles, mumps and rubella virus vaccine Pamela James PA-C Work Phone: [facility] 09-17-2003 pneumococcal conjuga te vaccine, 7 valent Pamela James PA-C Work Phone: [facility] 09-17-2003 poliovirus vaccine, inactivated Pamela James PA-C Work Phone: [facility] 09-17-2003 varicella virus vaccine Pamela Erika PA-C Work Phone: [facility] 03-20-2003 diphtheria, tetanus toxoids and acellular pertussis vaccine, unspecified formulation Pamela Athy PA-C Work Phone: [facility] 03-20-2003 haemophilus influenz ae type b vaccine, PRP-T conjugate Pamela Athy PA-C Work Phone: [facility] 03-20-2003 pneumococcal conjuga te vaccine, 7 valent Pamela Athy PA-C Work Phone: [facility] 01-30-2003 pneumococcal conjuga te vaccine, 7 valent Pamela Athy PA-C Work Phone: [facility] 01-20-2003 diphtheria, tetanus toxoids and acellular pertussis vaccine, unspecified formulation Pamela Athy PA-C Work Phone: [facility] 01-20-2003 haemophilus influenz ae type b vaccine, PRP-T conjugate Pamela Athy PA-C Work Phone: [facility] 01-20-2003 pneumococcal conjuga te vaccine, 7 valent Pamela Athy PA-C Work Phone: [facility] 01-20-2003 poliovirus vaccine, inactivated Pamela Athy PA-C Work Phone: [facility] 2002 diphtheria, tetanus toxoids and acellular pertussis vaccine, unspecified formulation Pamela Athy PA-C Work Phone: [facility] 2002 haemophilus influenz ae type b vaccine, PRP-T conjugate Pamela Athy PA-C Work Phone: [facility] 2002 hepatitis B vaccine, pediatric or pediatric/adolescent dosage Pamela Athy PA-C Work Phone: [facility] 2002 poliovirus vaccine, inactivated Pamela Athy PA-C Work Phone: [facility] 2002 hepatitis B vaccine, pediatric or pediatric/adolescent dosage Pamela Athy PA-C Work Phone: [facility] Payers Date Payer Category Payer Unknown [id number] 2024 Self-pay [id number] 2018 Unknown 2013 Unknown [id number] 2011 Medicaid [employer] [facility] [id number] 2011-Present [phone] [address] [place] [address] Medicaid [id number] 2011 Medicaid [id number]. [id number] 2009 Unknown [id number] 2002 Unknown [id number] 2.16840.1.438064.3.579.2.479 2002 Unknown [id number] 2.840.1.269816.3.579.2.479 2002 Unknown [id number] 2.16840.1.608154.3.579.2.479 2002 Unknown [id number] 2.16840.1.774907.3.579.2.479 2002 Unknown [id number] 2.16840.1.685241.3.579.2.479 2002 Unknown [id number] 2.16840.1.332073.3.579.2.479 2002 Unknown [id number] 2.16840.1.302659.3.579.2.479 2002 Unknown [id number] 2.16840.1.525743.3.579.2.627 2002 Unknown [id number] 2.16840.1.866550.3.579.2.627 2002 Unknown [id number] 2.16840.1.604165.3.579.2.627 2002 Unknown [id number] 2.16.840.1.398849.3.579.2.627 2002 Unknown [id number] 2.16.840.1.120727.3.579.2. 2002 Unknown [id number] 2.16.840.1.902012.3.579.2.62 2002 Unknown [id number] 2.16.840.1.268970.3.579.2. 2002 Unknown [id number] 2.16.840.1.368221.3.579.2. 2002 Unknown [id number] 2.16.840.1.549094.3.579.2. 2002 Unknown [id number] 2.16.840.1.491795.3.579.2. 2002 Unknown [id number] 2.16.840.1.913191.3.579.2. 2002 Unknown [id number] 2.16.840.1.694101.3.579.2. 2002 Unknown [id number] 2.16.840.1.676637.3.579.2. 2002 Unknown [id number] 2.16.840.1.435538.3.579.2. 2002 Unknown [id number] 2.16.840.1.768097.3.579.2. 2002 Unknown [id number] 2.16.840.1.690799.3.579.2. 2002 Unknown [id number] 2.16.840.1.477770.3.579.2. 2002 Unknown [id number] 2.16.840.1.691437.3.579.2. 2002 Unknown [id number] 2.16.840.1.047755.3.579.2. 2002 Unknown [id number] 2.16.840.1.374547.3.579.2.62 2002 Unknown [id number] 2.16.840.1.695736.3.579.2. 2002 Unknown [id number] 2.16.840.1.335461.3.579.2.62 2002 Unknown [id number] 2.16.840.1.302637.3.579.2. 2002 Unknown [id number] 2.16.840.1.262132.3.579.2. 2002 Unknown [id number] 2.16.840.1.156776.3.579.2. 2002 Unknown [id number] 2.16840.1.602710.3.579.2. 2002 Unknown [id number] 2.16840.1.650527.3.579.2. 2002 Unknown [id number] 2.16840.1.421894.3.579.2 2002 Unknown [id number] 2.16.840.1.274778.3.579.2. 2002 Unknown [id number] 2.16.840.1.887072.3.579.2. 2002 Unknown [id number] 2.16.840.1.092089.3.579.2. 2002 Unknown [id number] 2.16.840.1.707870.3.579.2. 2002 Unknown [id number] 2.16.840.1.378346.3.579.2. 2002 Unknown [id number] 2.16.840.1.259797.3.579.2. 2002 Unknown [id number] 2.16.840.1.820451.3.579.2.627 2002 Unknown [id number] 2.16.840.1.140180.3.579.2.627 2002 Unknown [id number] 2.16.840.1.118576.3.579.2.627 2002 Unknown [id number] 2.16840.1.972976.3.579.2.627 2002 Unknown [id number] 2.16840.1.140899.3.579.2.627 2002 Unknown [id number] 2.840.1.123230.3.579.2.62 2002 Unknown [id number] 2.840.1.702047.3.579.2.627 2002 Unknown [id number] 2.840.1.285278.3.579.2.62 2002 Unknown [id number] 2.840.1.688395.3.579.2.627 2002 Unknown [id number] 2.840.1.760582.3.579.2.627 2002 Unknown [id number] 2.840.1.225130.3.579.2.627 2002 Unknown [id number] 2.840.1.955997.3.579.2.627 Unknown [id number] 2.840.1.674620.3.579.2.273 Unknown [id number] 2.840.1.379804.3.579.2.462 Unknown [id number] 2.16840.1.445521.3.579.2.462 Unknown [id number] 2.840.1.455003.3.579.2.462 Unknown [id number] 2.840.1.243781.3.579.2.462 Unknown [id number] 2.840.1.336311.3.579.2.462 Unknown [id number] 2.16.840.1.874487.3.579.2.462 Unknown [id number] 2.16.840.1.412373.3.579.2.462 Social History Date Type Detail Facility Start: 09-24-2021 End: 07-05-2022 Never smoked tobacco (finding) [facility] Sex Assigned At [facility] Start: 11-24-2011 End: 07-05-2022 Tobacco use and exposure Smokeless tobacco non-user [facility] Start: 06-22-2022 End: 07-28-2025 Alcohol intake Lifetime non-drinker (finding) [facility] Start: 02-25-2021 End: 11-07-2022 History SDOH Alcohol Frequency 1 [facility] Start: 2002 Sex Assigned At Female [facility] Start: 06-04-2022 End: 08-06-2022 Exposure to SARS-CoV-2 (event) Not sure [facility] Start: 11-07-2022 History SDOH Alcohol Std Drinks 0 [facility] Start: 11-07-2022 History SDOH Social Connections Phone 5 [facility] Start: 11-07-2022 History SDOH Social Connections Membership 2 [facility] Start: 11-07-2022 History SDOH Physica l Activity DPW 4 [facility] Start: 11-07-2022 History SDOH Physica l Activity MPS 9 [facility] Start: 02-28-2023 [facility] Start: 03-26-2023 End: 03-30-2024 Tobacco smoking status NHIS Unknown if ever smoked [facility] Start: 11-07-2022 End: 10-18-2023 History of Social function [facility] Start: 11-07-2022 End: 10-18-2023 Social connection and isolation panel [facility] Do you belong to any clubs or organizations such as mosque groups, unions, fraternal or athletic groups, or school groups? No [facility] Start: 10-21-2012 Marital Status Not on file [facility] How often to you hav e a drink containing alcohol? Never [facility] Do you feel stress - tense, restless, nervous, or anxious, or unable to sleep at night because your mind is troubled all the time - these days [OSQ] Not at all [facility] (I/We) worried wheth er (my/our) food would run out before (I/we) got money to buy more. Never true [facility] Start: 02-22-2021 Gender identity Identifies as female gender (finding) [facility] Start: 12-28-2005 End: 03-09-2025 Sex Female (finding) [facility] Medical Equipment Procedure Code Equipment Code Equipment Origin al Text Equipment Identifier Dates See Instructions , Check 4x/Day. any brand covered, # 200 EA, 3 Refill(s), Pharmacy: [facility], Gestational diabetes, 160, cm, 06/26/23 13:42:00 EDT, Height, 111.4, kg, 05/24/23 13:56:00 EDT, Dosing Weight Start: 06-26-2023 See Instructions , Check 4x/Day, # 200 EA, 3 Refill(s), Pharmacy: [facility] #[facility], Gestational diabetes, 160, cm, 06/26/23 13:42:00 EDT, Height, 111.4, kg, 05/24/23 13:56:00 EDT, Dosing Weight Start: 06-26-2023 See Instructions , Check 4x/Day. any brand covered, # 200 EA, 3 Refill(s), Pharmacy: [facility] #[facility], Gestational diabetes, 160, cm, 06/26/23 13:42:00 EDT, Height, 111.4, kg, 05/24/23 13:56:00 EDT, Dosing Weight Start: 06-26-2023 See Instructions , Check 4x/Day, # 200 EA, 3 Refill(s), Pharmacy: [facility] #30, Gestational diabetes, 160, cm, 06/26/23 13:42:00 EDT, Height, 111.4, kg, 05/24/23 13:56:00 EDT, Dosing Weight Start: 06-26-2023 See Instructions , Check 4x/Day. any brand covered, # 200 EA, 3 Refill(s), Pharmacy: [facility] #30, Gestational diabetes, 160, cm, 06/26/23 13:42:00 EDT, Height, 111.4, kg, 05/24/23 13:56:00 EDT, Dosing Weight Start: 06-26-2023 See Instructions , Check 4x/Day, # 200 EA, 3 Refill(s), Pharmacy: [facility] #30, Gestational diabetes, 160, cm, 06/26/23 13:42:00 EDT, Height, 111.4, kg, 05/24/23 13:56:00 EDT, Dosing Weight Start: 06-26-2023 See Instructions , Check 4x/Day. any brand covered, # 200 EA, 3 Refill(s), Pharmacy: [facility] #30, Gestational diabetes, 160, cm, 06/26/23 13:42:00 EDT, Height, 111.4, kg, 05/24/23 13:56:00 EDT, Dosing Weight Start: 06-26-2023 See Instructions , Check 4x/Day, # 200 EA, 3 Refill(s), Pharmacy: [facility] #30, Gestational diabetes, 160, cm, 06/26/23 13:42:00 EDT, Height, 111.4, kg, 05/24/23 13:56:00 EDT, Dosing Weight Start: 06-26-2023 See Instructions , Check 4x/Day. any brand covered, # 200 EA, 3 Refill(s), Pharmacy: [facility] #30, Gestational diabetes, 160, cm, 06/26/23 13:42:00 EDT, Height, 111.4, kg, 05/24/23 13:56:00 EDT, Dosing Weight Start: 06-26-2023 See Instructions , Check 4x/Day, # 200 EA, 3 Refill(s), Pharmacy: [facility] #30, Gestational diabetes, 160, cm, 06/26/23 13:42:00 EDT, Height, 111.4, kg, 05/24/23 13:56:00 EDT, Dosing Weight Start: 06-26-2023 See Instructions , Check 4x/Day. any brand covered, # 200 EA, 3 Refill(s), Pharmacy: [facility] #30, Gestational diabetes, 160, cm, 06/26/23 13:42:00 EDT, Height, 111.4, kg, 05/24/23 13:56:00 EDT, Dosing Weight Start: 06-26-2023 See Instructions , Check 4x/Day, # 200 EA, 3 Refill(s), Pharmacy: [facility] #30, Gestational diabetes, 160, cm, 06/26/23 13:42:00 EDT, Height, 111.4, kg, 05/24/23 13:56:00 EDT, Dosing Weight Start: 06-26-2023 See Instructions , Check 4x/Day. any brand covered, # 200 EA, 3 Refill(s), Pharmacy: [facility] #30, Gestational diabetes, 160, cm, 06/26/23 13:42:00 EDT, Height, 111.4, kg, 05/24/23 13:56:00 EDT, Dosing Weight Start: 06-26-2023 See Instructions , Check 4x/Day, # 200 EA, 3 Refill(s), Pharmacy: [facility] #30, Gestational diabetes, 160, cm, 06/26/23 13:42:00 EDT, Height, 111.4, kg, 05/24/23 13:56:00 EDT, Dosing Weight Start: 06-26-2023 See Instructions , Check 4x/Day. any brand covered, # 200 EA, 3 Refill(s), Pharmacy: [facility] #30, Gestational diabetes, 160, cm, 06/26/23 13:42:00 EDT, Height, 111.4, kg, 05/24/23 13:56:00 EDT, Dosing Weight Start: 06-26-2023 See Instructions , Check 4x/Day, # 200 EA, 3 Refill(s), Pharmacy: [facility] #30, Gestational diabetes, 160, cm, 06/26/23 13:42:00 EDT, Height, 111.4, kg, 05/24/23 13:56:00 EDT, Dosing Weight Start: 06-26-2023 See Instructions , Check 4x/Day. any brand covered, # 200 EA, 3 Refill(s), Pharmacy: [facility] #30, Gestational diabetes, 160, cm, 06/26/23 13:42:00 EDT, Height, 111.4, kg, 05/24/23 13:56:00 EDT, Dosing Weight Start: 06-26-2023 See Instructions , Check 4x/Day, # 200 EA, 3 Refill(s), Pharmacy: [facility] #30, Gestational diabetes, 160, cm, 06/26/23 13:42:00 EDT, Height, 111.4, kg, 05/24/23 13:56:00 EDT, Dosing Weight Start: 06-26-2023 See Instructions , Check 4x/Day. any brand covered, # 200 EA, 3 Refill(s), Pharmacy: [facility] #30, Gestational diabetes, 160, cm, 06/26/23 13:42:00 EDT, Height, 111.4, kg, 05/24/23 13:56:00 EDT, Dosing Weight Start: 06-26-2023 See Instructions , Check 4x/Day, # 200 EA, 3 Refill(s), Pharmacy: [facility] #30, Gestational diabetes, 160, cm, 06/26/23 13:42:00 EDT, Height, 111.4, kg, 05/24/23 13:56:00 EDT, Dosing Weight Start: 06-26-2023 See Instructions , Check 4x/Day. any brand covered, # 200 EA, 3 Refill(s), Pharmacy: [facility] #30, Gestational diabetes, 160, cm, 06/26/23 13:42:00 EDT, Height, 111.4, kg, 05/24/23 13:56:00 EDT, Dosing Weight Start: 06-26-2023 See Instructions , Check 4x/Day, # 200 EA, 3 Refill(s), Pharmacy: [facility] #30, Gestational diabetes, 160, cm, 06/26/23 13:42:00 EDT, Height, 111.4, kg, 05/24/23 13:56:00 EDT, Dosing Weight Start: 06-26-2023 See Instructions , Check 4x/Day. any brand covered, # 200 EA, 3 Refill(s), Pharmacy: [facility] #30, Gestational diabetes, 160, cm, 06/26/23 13:42:00 EDT, Height, 111.4, kg, 05/24/23 13:56:00 EDT, Dosing Weight Start: 06-26-2023 See Instructions , Check 4x/Day, # 200 EA, 3 Refill(s), Pharmacy: [facility] #30, Gestational diabetes, 160, cm, 06/26/23 13:42:00 EDT, Height, 111.4, kg, 05/24/23 13:56:00 EDT, Dosing Weight Start: 06-26-2023 See Instructions , Check 4x/Day. any brand covered, # 200 EA, 3 Refill(s), Pharmacy: [facility] #30, Gestational diabetes, 160, cm, 06/26/23 13:42:00 EDT, Height, 111.4, kg, 05/24/23 13:56:00 EDT, Dosing Weight Start: 06-26-2023 See Instructions , Check 4x/Day, # 200 EA, 3 Refill(s), Pharmacy: [facility] #30, Gestational diabetes, 160, cm, 06/26/23 13:42:00 EDT, Height, 111.4, kg, 05/24/23 13:56:00 EDT, Dosing Weight Start: 06-26-2023 See Instructions , Check 4x/Day. any brand covered, # 200 EA, 3 Refill(s), Pharmacy: [facility] #30, Gestational diabetes, 160, cm, 06/26/23 13:42:00 EDT, Height, 111.4, kg, 05/24/23 13:56:00 EDT, Dosing Weight Start: 06-26-2023 See Instructions , Check 4x/Day, # 200 EA, 3 Refill(s), Pharmacy: [facility] #30, Gestational diabetes, 160, cm, 06/26/23 13:42:00 EDT, Height, 111.4, kg, 05/24/23 13:56:00 EDT, Dosing Weight Start: 06-26-2023 See Instructions , Check 4x/Day. any brand covered, # 200 EA, 3 Refill(s), Pharmacy: [facility] #30, Gestational diabetes, 160, cm, 06/26/23 13:42:00 EDT, Height, 111.4, kg, 05/24/23 13:56:00 EDT, Dosing Weight Start: 06-26-2023 See Instructions , Check 4x/Day, # 200 EA, 3 Refill(s), Pharmacy: [facility] #30, Gestational diabetes, 160, cm, 06/26/23 13:42:00 EDT, Height, 111.4, kg, 05/24/23 13:56:00 EDT, Dosing Weight Start: 06-26-2023 See Instructions , Check 4x/Day. any brand covered, # 200 EA, 3 Refill(s), Pharmacy: [facility] #30, Gestational diabetes, 160, cm, 06/26/23 13:42:00 EDT, Height, 111.4, kg, 05/24/23 13:56:00 EDT, Dosing Weight Start: 06-26-2023 See Instructions , Check 4x/Day, # 200 EA, 3 Refill(s), Pharmacy: [facility] #30, Gestational diabetes, 160, cm, 06/26/23 13:42:00 EDT, Height, 111.4, kg, 05/24/23 13:56:00 EDT, Dosing Weight Start: 06-26-2023 See Instructions , Check 4x/Day. any brand covered, # 200 EA, 3 Refill(s), Pharmacy: [facility] #30, Gestational diabetes, 160, cm, 06/26/23 13:42:00 EDT, Height, 111.4, kg, 05/24/23 13:56:00 EDT, Dosing Weight Start: 06-26-2023 See Instructions , Check 4x/Day, # 200 EA, 3 Refill(s), Pharmacy: [facility] #30, Gestational diabetes, 160, cm, 06/26/23 13:42:00 EDT, Height, 111.4, kg, 05/24/23 13:56:00 EDT, Dosing Weight Start: 06-26-2023 See Instructions , Check 4x/Day. any brand covered, # 200 EA, 3 Refill(s), Pharmacy: [facility] #30, Gestational diabetes, 160, cm, 06/26/23 13:42:00 EDT, Height, 111.4, kg, 05/24/23 13:56:00 EDT, Dosing Weight Start: 06-26-2023 See Instructions , Check 4x/Day, # 200 EA, 3 Refill(s), Pharmacy: [facility] #30, Gestational diabetes, 160, cm, 06/26/23 13:42:00 EDT, Height, 111.4, kg, 05/24/23 13:56:00 EDT, Dosing Weight Start: 06-26-2023 See Instructions , Check 4x/Day. any brand covered, # 200 EA, 3 Refill(s), Pharmacy: [facility] #30, Gestational diabetes, 160, cm, 06/26/23 13:42:00 EDT, Height, 111.4, kg, 05/24/23 13:56:00 EDT, Dosing Weight Start: 06-26-2023 See Instructions , Check 4x/Day, # 200 EA, 3 Refill(s), Pharmacy: [facility] #30, Gestational diabetes, 160, cm, 06/26/23 13:42:00 EDT, Height, 111.4, kg, 05/24/23 13:56:00 EDT, Dosing Weight Start: 06-26-2023 See Instructions , Check 4x/Day. any brand covered, # 200 EA, 3 Refill(s), Pharmacy: [facility] #30, Gestational diabetes, 160, cm, 06/26/23 13:42:00 EDT, Height, 111.4, kg, 05/24/23 13:56:00 EDT, Dosing Weight Start: 06-26-2023 See Instructions , Check 4x/Day, # 200 EA, 3 Refill(s), Pharmacy: [facility] #30, Gestational diabetes, 160, cm, 06/26/23 13:42:00 EDT, Height, 111.4, kg, 05/24/23 13:56:00 EDT, Dosing Weight Start: 06-26-2023 See Instructions , Check 4x/Day. any brand covered, # 200 EA, 3 Refill(s), Pharmacy: [facility] #30, Gestational diabetes, 160, cm, 06/26/23 13:42:00 EDT, Height, 111.4, kg, 05/24/23 13:56:00 EDT, Dosing Weight Start: 06-26-2023 See Instructions , Check 4x/Day, # 200 EA, 3 Refill(s), Pharmacy: [facility] #30, Gestational diabetes, 160, cm, 06/26/23 13:42:00 EDT, Height, 111.4, kg, 05/24/23 13:56:00 EDT, Dosing Weight Start: 06-26-2023 See Instructions , Check 4x/Day. any brand covered, # 200 EA, 3 Refill(s), Pharmacy: [facility] #30, Gestational diabetes, 160, cm, 06/26/23 13:42:00 EDT, Height, 111.4, kg, 05/24/23 13:56:00 EDT, Dosing Weight Start: 06-26-2023 See Instructions , Check 4x/Day, # 200 EA, 3 Refill(s), Pharmacy: [facility] #30, Gestational diabetes, 160, cm, 06/26/23 13:42:00 EDT, Height, 111.4, kg, 05/24/23 13:56:00 EDT, Dosing Weight Start: 06-26-2023 See Instructions , Check 4x/Day. any brand covered, # 200 EA, 3 Refill(s), Pharmacy: [facility] #30, Gestational diabetes, 160, cm, 06/26/23 13:42:00 EDT, Height, 111.4, kg, 05/24/23 13:56:00 EDT, Dosing Weight Start: 06-26-2023 See Instructions , Check 4x/Day, # 200 EA, 3 Refill(s), Pharmacy: [facility] #30, Gestational diabetes, 160, cm, 06/26/23 13:42:00 EDT, Height, 111.4, kg, 05/24/23 13:56:00 EDT, Dosing Weight Start: 06-26-2023 See Instructions , Check 4x/Day. any brand covered, # 200 EA, 3 Refill(s), Pharmacy: [facility] #30, Gestational diabetes, 160, cm, 06/26/23 13:42:00 EDT, Height, 111.4, kg, 05/24/23 13:56:00 EDT, Dosing Weight Start: 06-26-2023 See Instructions , Check 4x/Day, # 200 EA, 3 Refill(s), Pharmacy: [facility] #30, Gestational diabetes, 160, cm, 06/26/23 13:42:00 EDT, Height, 111.4, kg, 05/24/23 13:56:00 EDT, Dosing Weight Start: 06-26-2023 See Instructions , Check 4x/Day. any brand covered, # 200 EA, 3 Refill(s), Pharmacy: [facility] #30, Gestational diabetes, 160, cm, 06/26/23 13:42:00 EDT, Height, 111.4, kg, 05/24/23 13:56:00 EDT, Dosing Weight Start: 06-26-2023 See Instructions , Check 4x/Day, # 200 EA, 3 Refill(s), Pharmacy: [facility] #30, Gestational diabetes, 160, cm, 06/26/23 13:42:00 EDT, Height, 111.4, kg, 05/24/23 13:56:00 EDT, Dosing Weight Start: 06-26-2023 Functional Status Date Assessment Result Facility 01-22-2025 Functional Status Independent [facility] 01-22-2025 Functional Status Awake, Resting [facility] 10-05-2024 Functional Status Standard Safet y ID band on, Call device within reach, Bed in low position, Wheels locked, Upper/Half-Length side-rails up, Bedside Cart Locked, Safety level maintained [facility] 10-04-2024 Functional Status ID band on, Allergy Band on, Call device within reach, Bed in low position, Wheels locked, personal items within reach, Bedside Cart Locked [facility] 07-04-2024 Functional Status Independent [facility] 07-04-2024 Functional Status Standard Safet y ID band on, Allergy Band on, Call device within reach, Bed in low position, Wheels locked, Upper/Half-Length side-rails up, personal items within reach, Bedside Cart Locked, Visitor at bedside [facility] 01-11-2024 [facility] Functional Status Awake, Resting [facility] 11-13-2023 Functional Status Standard Safet y Precautions maintained [facility] 11-13-2023 [facility] Functional Status Ambulation in Room [facility] 11-13-2023 Functional Status Repositions self [facility] 11-13-2023 Functional Status [facility] 11-13-2023 Functional Status R[facility] 11-12-2023 Functional Status 7pm-11pm [facility]12[facility] Functional Status Maintained [facility] 11-12-2023 Functional Status Home independently [facility] 10-10-2023 [facility] Status Home independently [facility] 10-09-2023 Functional Status Maternal Activity [facility] 10-08-2023 [facility] Functional Status Repositions self [facility] 10-08-[facility]23 [facility] Functional Status Ambulation in Room [facility] 09-14-2023 Functional Status Resting [facility] 09-10-2023 [facility] Functional Status 7am-7pm [facility] 05-24-2023 Functional Status Independent [facility] 05-24-2023 Functional Status ID band on, Call device within reach, Bed in low position, Wheels locked, Upper/Half-Length side-rails up [facility] 08-06-2022 Functional Status Independent [facility] 08-06-2022 Functional Status Standard Safet y ID band on, Allergy Band on, Call device within reach, Bed in low position, Wheels locked, Upper/Half-Length side-rails up, Phone within reach, personal items within reach, Assistive devices within reach, Bedside Cart Locked, Safety level maintained, Non-Slip footwear [facility] 07-26-2022 Functional Status Room check performed [facility] 07-15-2022 Functional Status Up ad vijay [facility] 07-15-2022 Functional Status Standard Safet y ID band on, Allergy Band on, Call device within reach, Bed in low position, Wheels locked, Visitor at bedside [facility] 03-04-2022 Functional Status [facility] 03-04-2022 Functional Status [facility] 03-02-2022 Functional Status [facility] 03-02-2022 Functional Status [facility] Mental Status Date Assessment Result Facility 01-22-2025 Mental Status Orientation Oriented x 4 [facility] 01-22-2025 Mental Status [facility] 10-05-2024 Mental Status Orientation Oriented x 4 [facility] 10-04-2024 Mental Status Oriented x 4 [facility] 07-04-2024 Mental Status Orientation Oriented x 4 [facility] 07-04-2024 Mental Status [facility] 03-30-2024 Cognitive function Awake;Alert;A ppropriate;Follo ws [facility] Work Phone: 01-11-2024 Cognitive function Awake;Alert;A ppropriate;Follo ws Comm[facility] 09-10-2023 Mental Status Orientation Oriented x 4 [facility] 05-24-2023 Mental Status Orientation Oriented x 4 [facility] 05-24-2023 Mental Status [facility] 08-06-2022 Mental Status Orientation Oriented x 4 [facility] 08-06-2022 Mental Status [facility] 07-26-2022 Mental Status Orientation Oriented x 4 [facility] 07-15-2022 Mental Status Orientation Oriented x 4 [facility] 07-15-2022 Mental Status [facility] 03-04-2022 Mental Status [facility] 03-04-2022 Mental Status [facility] 03-02-2022 Mental Status [facility] 03-02-2022 Mental Status [facility] Clinical Notes 03-02-2022 to 07-31-2025 Telephone Encounter - Wyatt Romero - 07/31/2025 1:26 PM EDTTelephone Encounter - Wyatt Romero - 07/31/2025 1:26 PM EDTTelephone Encounter - Rubi Middleton LPN - 07/31/2025 1:06 PM EDT Note Date & Type Note Facility 07-31-2025 Telephone encount er Note Called, left voicemail for patient to contact office regarding scheduling Overdue Annual Wellness. Wyatt Romero [facility] 07-31-2025 Miscellaneous Notes Formattin g of this note might be different from the original. Called, left voicemail for patient to contact office regarding scheduling Overdue Annual Wellness. Wyatt Romero Patient is overdue for Wellness exam Please contact to schedule Rubi Middleton LPN July 31, 2025 1:06 PM documented in this encounter [facility] 07-31-2025 Telephone encount er Note Patient is overdue for Wellness exam Please contact to schedule Rubi Middleton LPN July 31, 2025 1:06 PM [facility] 07-28-2025 Note HNO ID: [id number] Author: LINK MATT APRN.HAND CANDY MOLDER Service: ? Author Type: Nurse Practitioner Type: Progress Notes Filed: 07/28/2025 16:08 Note Text: [facility] Elliottrupesh Carroll is a 25 year old female. Patient presents with: Ear Pain: right x 06/16 HPI Nontoxic-appearing 25-year-old female presents urgent care chief complaint ear pain. Duration of symptoms ongoing since the end of May. Associated symptoms right ear pain. States improved no worsening in. Was seen by me. Placed on amoxicillin. States ear pain has been episodic is worse in the last few days. No trauma. No loss hearing. No otorrhea. No fevers. Past medical history prescription medications allergies reviewed. Review of Systems Constitutional: Negative for chills, diaphoresis, fatigue and fever. HENT: Positive for ear pain. Negative for congestion, dental problem, drooling, ear discharge, rhinorrhea, sinus pressure, sinus pain, sneezing, sore throat and trouble swallowing. Eyes: Negative for pain, discharge, redness, itching and visual disturbance. Respiratory: Negative for cough, chest tightness, shortness of breath and wheezing. Cardiovascular: Negative for chest pain. Gastrointestinal: Negative for abdominal distention, abdominal pain, blood in stool, constipation, diarrhea, nausea and vomiting. Genitourinary: Negative for difficulty urinating and dysuria. Musculoskeletal: Negative for arthralgias, joint swelling, neck pain and neck stiffness. Skin: Negative for rash. Neurological: Negative for dizziness, weakness, numbness and headaches. Objective BP 124/72 Pulse 96 Temp 36.8 ?C (98.2 ?F) Resp 16 Wt 119.8 kg (264 lb 1.8 oz) LMP (LMP Unknown) SpO2 99% BMI 46.79 kg/m? Physical Exam Constitutional: Appearance: Normal appearance. HENT: Head: Normocephalic. Jaw: No trismus, tenderness, swelling or pain on movement. Right Ear: Tympanic membrane and external ear normal. No mastoid tenderness. Left Ear: Tympanic membrane, ear canal and external ear normal. No mastoid tenderness. Ears: Comments: Mild auditory canal erythema edema noted. Pinna tenderness with manipulation. No evidence of perichondritis Nose: No congestion. Mouth/Throat: Mouth: Mucous membranes are moist. Pharynx: Oropharynx is clear. Uvula midline. No oropharyngeal exudate or posterior oropharyngeal erythema. Eyes: Conjunctiva/sclera: Conjunctivae normal. Cardiovascular: Rate and Rhythm: Normal rate. Pulmonary: Effort: Pulmonary effort is normal. Breath sounds: Normal breath sounds. No wheezing, rhonchi or rales. Abdominal: Palpations: Abdomen is soft. Tenderness: There is no abdominal tenderness. There is no guarding or rebound. Musculoskeletal: General: Normal range of motion. Cervical back: Normal range of motion and neck supple. No edema, erythema or rigidity. No pain with movement. Normal range of motion. Lymphadenopathy: Cervical: No cervical adenopathy. Skin: General: Skin is warm. Findings: No rash. Neurological: General: No focal deficit present. Mental Status: She is alert and oriented to person, place, and time. Mental status is at baseline. {ASSESSMENT/PLAN: 1. Acute otitis externa of right ear, unspecified type - ICD9: 380.10, ICD10: H60.501 Diagnosed otitis externa. Placed on ofloxacin otic drops. Encouraged to follow-up with ENT Patient was educated on supportive therapies. Patient will follow up with primary care provider as needed. Patient was instructed to immediately proceed to emergency room for any new, worsening, or symptoms lasting longer than anticipated. The patient's clinical presentation is otherwise unremarkable at this time. Based on exam and clinical finding, the patient is stable for discharge. Plan of care was discussed with patient. Patient verbalizes understanding and agrees to plan of care. This note was generated using [employer] software. It may contain errors in wording, punctuation, or spelling. Link Matt APRN.HAND CANDY MOLDER History and Record Review Clinical information obtained from an independent historian. History obtained from or confirmed by: parent. External record(s) reviewed: prior outpatient record. Disposition The patient was discharged. OTC Medications were advised: Procedures [facility] 07-28-2025 History of Presen t illness Narrative [facility] Carroll is a 25 year old female. Patient presents with: Ear Pain: right x 06/16 HPI Nontoxic-appearing 25-year-old female presents urgent care chief complaint ear pain. Duration of symptoms ongoing since the end of May. Associated symptoms right ear pain. States improved no worsening in. Was seen by me. Placed on amoxicillin. States ear pain has been episodic is worse in the last few days. No trauma. No loss hearing. No otorrhea. No fevers. Past medical history prescription medications allergies reviewed. Review of Systems Constitutional: Negative for chills, diaphoresis, fatigue and fever. HENT: Positive for ear pain. Negative for congestion, dental problem, drooling, ear discharge, rhinorrhea, sinus pressure, sinus pain, sneezing, sore throat and trouble swallowing. Eyes: Negative for pain, discharge, redness, itching and visual disturbance. Respiratory: Negative for cough, chest tightness, shortness of breath and wheezing. Cardiovascular: Negative for chest pain. Gastrointestinal: Negative for abdominal distention, abdominal pain, blood in stool, constipation, diarrhea, nausea and vomiting. Genitourinary: Negative for difficulty urinating and dysuria. Musculoskeletal: Negative for arthralgias, joint swelling, neck pain and neck stiffness. Skin: Negative for rash. Neurological: Negative for dizziness, weakness, numbness and headaches. Objective BP 124/72 Pulse 96 Temp 36.8 C (98.2 F) Resp 16 Wt 119.8 kg (264 lb 1.8 oz) LMP (LMP Unknown) SpO2 99% BMI 46.79 kg/m Physical Exam Constitutional: Appearance: Normal appearance. HENT: Head: Normocephalic. Jaw: No trismus, tenderness, swelling or pain on movement. Right Ear: Tympanic membrane and external ear normal. No mastoid tenderness. Left Ear: Tympanic membrane, ear canal and external ear normal. No mastoid tenderness. Ears: Comments: Mild auditory canal erythema edema noted. Pinna tenderness with manipulation. No evidence of perichondritis Nose: No congestion. Mouth/Throat: Mouth: Mucous membranes are moist. Pharynx: Oropharynx is clear. Uvula midline. No oropharyngeal exudate or posterior oropharyngeal erythema. Eyes: Conjunctiva/sclera: Conjunctivae normal. Cardiovascular: Rate and Rhythm: Normal rate. Pulmonary: Effort: Pulmonary effort is normal. Breath sounds: Normal breath sounds. No wheezing, rhonchi or rales. Abdominal: Palpations: Abdomen is soft. Tenderness: There is no abdominal tenderness. There is no guarding or rebound. Musculoskeletal: General: Normal range of motion. Cervical back: Normal range of motion and neck supple. No edema, erythema or rigidity. No pain with movement. Normal range of motion. Lymphadenopathy: Cervical: No cervical adenopathy. Skin: General: Skin is warm. Findings: No rash. Neurological: General: No focal deficit present. Mental Status: She is alert and oriented to person, place, and time. Mental status is at baseline. {ASSESSMENT/PLAN: 1. Acute otitis externa of right ear, unspecified type - ICD9: 380.10, ICD10: H60.501 Diagnosed otitis externa. Placed on ofloxacin otic drops. Encouraged to follow-up with ENT Patient was educated on supportive therapies. Patient will follow up with primary care provider as needed. Patient was instructed to immediately proceed to emergency room for any new, worsening, or symptoms lasting longer than anticipated. The patient's clinical presentation is otherwise unremarkable at this time. Based on exam and clinical finding, the patient is stable for discharge. Plan of care was discussed with patient. Patient verbalizes understanding and agrees to plan of care. This note was generated using Pontis software. It may contain errors in wording, punctuation, or spelling. Link Matt APRN.HAND CANDY MOLDER History and Record Review Clinical information obtained from an independent historian. History obtained from or confirmed by: parent. External record(s) reviewed: prior outpatient record. Disposition The patient was discharged. OTC Medications were advised: Procedures documented in this encounter [facility] 06-16-2025 Note HNO ID: [id number] Author: LINK MATT APRN.MARY Service: ? Author Type: Nurse Practitioner Type: Progress Notes Filed: 06/16/2025 17:25 Note Text: [facility] is a 24 year old female. Patient presents with: Ear Pain: right x 6 days HPI Nontoxic-appearing female presents urgent care chief complaint right ear pain. Duration of symptoms 6 days. Associated symptoms sharp right ear pain. States ear pain has worsened in the last few days. No ear trauma otorrhea loss hearing. No fevers. History of ear infections similar. OTC medications none today. Denies chance of . Past medical history prescription medications allergies reviewed. Review of Systems Constitutional: Negative for chills, diaphoresis, fatigue and fever. HENT: Positive for ear pain. Negative for congestion, drooling, ear discharge, rhinorrhea, sinus pressure, sinus pain, sneezing, sore throat, tinnitus and trouble swallowing. Eyes: Negative for pain, discharge, redness, itching and visual disturbance. Respiratory: Negative for cough, chest tightness, shortness of breath and wheezing. Cardiovascular: Negative for chest pain. Gastrointestinal: Negative for abdominal distention, abdominal pain, blood in stool, constipation, diarrhea, nausea and vomiting. Genitourinary: Negative for difficulty urinating and dysuria. Musculoskeletal: Negative for arthralgias, joint swelling, neck pain and neck stiffness. Skin: Negative for rash. Neurological: Negative for dizziness, weakness, numbness and headaches. Objective BP 122/74 Pulse 112 Temp 36.8 ?C (98.3 ?F) Resp 16 Wt 119.8 kg (264 lb 1.8 oz) LMP (LMP Unknown) SpO2 97% BMI 46.79 kg/m? Hr 96 Physical Exam Constitutional: Appearance: Normal appearance. HENT: Head: Normocephalic. Jaw: No trismus, tenderness, swelling or pain on movement. Right Ear: Ear canal and external ear normal. Tympanic membrane is erythematous and bulging. Left Ear: Tympanic membrane, ear canal and external ear normal. Nose: No congestion. Mouth/Throat: Mouth: Mucous membranes are moist. Pharynx: Oropharynx is clear. Uvula midline. No oropharyngeal exudate or posterior oropharyngeal erythema. Eyes: Conjunctiva/sclera: Conjunctivae normal. Cardiovascular: Rate and Rhythm: Normal rate. Pulmonary: Effort: Pulmonary effort is normal. Breath sounds: Normal breath sounds. No wheezing, rhonchi or rales. Abdominal: Palpations: Abdomen is soft. Tenderness: There is no abdominal tenderness. There is no guarding or rebound. Musculoskeletal: General: Normal range of motion. Cervical back: Normal range of motion and neck supple. No edema, erythema or rigidity. No pain with movement. Normal range of motion. Lymphadenopathy: Cervical: No cervical adenopathy. Skin: General: Skin is warm. Findings: No rash. Neurological: General: No focal deficit present. Mental Status: She is alert and oriented to person, place, and time. Mental status is at baseline. {ASSESSMENT/PLAN: 1. Acute otitis media, right - ICD9: 382.9, ICD10: H66.91 Diagnosis otitis media right ear. Placed on amoxicillin. Patient was educated on supportive therapies. Patient will follow up with primary care provider as needed. Patient was instructed to immediately proceed to emergency room for any new, worsening, or symptoms lasting longer than anticipated. The patient's clinical presentation is otherwise unremarkable at this time. Based on exam and clinical finding, the patient is stable for discharge. Plan of care was discussed with patient. Patient verbalizes understanding and agrees to plan of care. This note was generated using Pont[employer] software. It may contain errors in wording, punctuation, or spelling. Link Matt APRN.HAND CANDY MOLDER History and Record Review Clinical information obtained from an independent historian. History obtained from or confirmed by: parent. External record(s) reviewed: prior outpatient record. Disposition The patient was discharged. OTC Medications were advised: Procedures [facility] 06-16-2025 History of Presen t illness Narrative [facility] Elliottrupesh Carroll is a 24 year old female. Patient presents with: Ear Pain: right x 6 days HPI Nontoxic-appearing female presents urgent care chief complaint right ear pain. Duration of symptoms 6 days. Associated symptoms sharp right ear pain. States ear pain has worsened in the last few days. No ear trauma otorrhea loss hearing. No fevers. History of ear infections similar. OTC medications none today. Denies chance of . Past medical history prescription medications allergies reviewed. Review of Systems Constitutional: Negative for chills, diaphoresis, fatigue and fever. HENT: Positive for ear pain. Negative for congestion, drooling, ear discharge, rhinorrhea, sinus pressure, sinus pain, sneezing, sore throat, tinnitus and trouble swallowing. Eyes: Negative for pain, discharge, redness, itching and visual disturbance. Respiratory: Negative for cough, chest tightness, shortness of breath and wheezing. Cardiovascular: Negative for chest pain. Gastrointestinal: Negative for abdominal distention, abdominal pain, blood in stool, constipation, diarrhea, nausea and vomiting. Genitourinary: Negative for difficulty urinating and dysuria. Musculoskeletal: Negative for arthralgias, joint swelling, neck pain and neck stiffness. Skin: Negative for rash. Neurological: Negative for dizziness, weakness, numbness and headaches. Objective BP 122/74 Pulse 112 Temp 36.8 C (98.3 F) Resp 16 Wt 119.8 kg (264 lb 1.8 oz) LMP (LMP Unknown) SpO2 97% BMI 46.79 kg/m Hr 96 Physical Exam Constitutional: Appearance: Normal appearance. HENT: Head: Normocephalic. Jaw: No trismus, tenderness, swelling or pain on movement. Right Ear: Ear canal and external ear normal. Tympanic membrane is erythematous and bulging. Left Ear: Tympanic membrane, ear canal and external ear normal. Nose: No congestion. Mouth/Throat: Mouth: Mucous membranes are moist. Pharynx: Oropharynx is clear. Uvula midline. No oropharyngeal exudate or posterior oropharyngeal erythema. Eyes: Conjunctiva/sclera: Conjunctivae normal. Cardiovascular: Rate and Rhythm: Normal rate. Pulmonary: Effort: Pulmonary effort is normal. Breath sounds: Normal breath sounds. No wheezing, rhonchi or rales. Abdominal: Palpations: Abdomen is soft. Tenderness: There is no abdominal tenderness. There is no guarding or rebound. Musculoskeletal: General: Normal range of motion. Cervical back: Normal range of motion and neck supple. No edema, erythema or rigidity. No pain with movement. Normal range of motion. Lymphadenopathy: Cervical: No cervical adenopathy. Skin: General: Skin is warm. Findings: No rash. Neurological: General: No focal deficit present. Mental Status: She is alert and oriented to person, place, and time. Mental status is at baseline. {ASSESSMENT/PLAN: 1. Acute otitis media, right - ICD9: 382.9, ICD10: H66.91 Diagnosis otitis media right ear. Placed on amoxicillin. Patient was educated on supportive therapies. Patient will follow up with primary care provider as needed. Patient was instructed to immediately proceed to emergency room for any new, worsening, or symptoms lasting longer than anticipated. The patient's clinical presentation is otherwise unremarkable at this time. Based on exam and clinical finding, the patient is stable for discharge. Plan of care was discussed with patient. Patient verbalizes understanding and agrees to plan of care. This note was generated using Pontis software. It may contain errors in wording, punctuation, or spelling. Link Matt APRN.HAND CANDY MOLDER History and Record Review Clinical information obtained from an independent historian. History obtained from or confirmed by: parent. External record(s) reviewed: prior outpatient record. Disposition The patient was discharged. OTC Medications were advised: Procedures documented in this encounter [facility] 04-16-2025 Note HNO ID: [id number] Author: OSITO GAXIOLA APRN.HAND CANDY MOLDER Service: ? Author Type: Nurse Practitioner Type: Progress Notes Filed: 04/16/2025 12:51 Note Text: [facility] Subjective HPI HPI Gabrielle Carroll is a 24 year old female who presents today for CC of cough, st, fever. This started 4 days ago. Has tried otc medication for relief. Symptoms are worsened by nothing. Risk factors sick exposures at work. Nonsmoker. Hx of asthma. Denies possibility of being . .Patient presents with: Cough: Chest congestion, ST x4 days PAST MEDICAL HISTORY Diagnosis Date Headache NEGATIVE MEDICAL HISTORY PAST SURGICAL HISTORY Procedure Laterality Date PAST SURGICAL HISTORY OF 2019 [place] teeth extracted TONSILLECTOMY AND ADENOIDECTOMY HX ALLERGIES Sumatriptan MEDICATIONS doxycycline monohydrate 100 mg tablet Take 1 tablet by mouth two times a day for 7 days. albuterol HFA (PROAIR HFA) 90 mcg/actuation inhaler Inhale 2 puffs as instructed every 4 hours as needed. vit no.124/iron/folic ( VITAMIN ORAL) Take by mouth. (Patient not taking: Reported on 04/16/2025) FAMILY HISTORY Problem Relation Age of Onset Cervical Cancer Sister Social History Tobacco Use Smoking status: Never Smokeless tobacco: Never Vaping Use Vaping status: Never Used Substance Use Topics Alcohol use: Never Drug use: Never Review of Systems Constitutional: Positive for fever. Negative for chills and fatigue. HENT: Positive for rhinorrhea and sore throat. Negative for ear discharge, ear pain, sinus pressure and sinus pain. Eyes: Negative for discharge and redness. Respiratory: Positive for cough. Negative for shortness of breath and wheezing. Cardiovascular: Negative for chest pain. Skin: Negative for rash. Objective BP 110/86 Pulse 117 Temp 37.8 ?C (100.1 ?F) Resp 20 Wt 120 kg (264 lb 8.8 oz) LMP (LMP Unknown) SpO2 100% No BMI 46.86 kg/m? Physical Exam Constitutional: General: She is not in acute distress. Appearance: She is ill-appearing (mild). She is not toxic-appearing or diaphoretic. HENT: Head: Normocephalic and atraumatic. Right Ear: Hearing and external ear normal. Left Ear: Hearing and external ear normal. Nose: Nose normal. Mouth/Throat: Pharynx: Uvula midline. Eyes: General: Lids are normal. No scleral icterus. Right eye: No discharge. Left eye: No discharge. Conjunctiva/sclera: Conjunctivae normal. Pupils: Pupils are equal, round, and reactive to light. Neck: Trachea: Trachea normal. Cardiovascular: Rate and Rhythm: Normal rate and regular rhythm. Heart sounds: Normal heart sounds. Pulmonary: Effort: Pulmonary effort is normal. Breath sounds: Normal breath sounds. Musculoskeletal: Cervical back: Normal range of motion and neck supple. Lymphadenopathy: Cervical: No cervical adenopathy. Skin: Findings: No rash. Neurological: Mental Status: She is alert and oriented to person, place, and time. {ASSESSMENT/PLAN: 1. Community acquired pneumonia, unspecified laterality - ICD9: 486, ICD10: J18.9 (primary diagnosis) - Discussed supportive care, - Limit exposure to smoke and other inhaled irritants - Discussed possible red flags and when to seek medical attention - Follow up in 3-5 days or sooner if no better or worse -If you experience chest pain/shortness of breath go to ER - DOXYCYCLINE MONOHYDRATE 100 MG TABLET - ALBUTEROL SULFATE HFA 90 MCG/ACTUATION AEROSOL INHALER 2. Acute cough - ICD9: 786.2, ICD10: R05.1 - XR CHEST 2V FRONTAL/LAT 3. Sore throat - ICD9: 462, ICD10: J02.9 Negative - ALERE STREP A TEST (AG) Osito Gaxiola APRN.HAND CANDY MOLDER History and Record Review External record(s) reviewed: prior outpatient record. Disposition The patient was discharged. Procedures [facility] 04-16-2025 History of Presen t illness Narrative [facility] Subjective HPI HPI Gabrielle Carroll is a 24 year old female who presents today for CC of cough, st, fever. This started 4 days ago. Has tried otc medication for relief. Symptoms are worsened by nothing. Risk factors sick exposures at work. Nonsmoker. Hx of asthma. Denies possibility of being . .Patient presents with: Cough: Chest congestion, ST x4 days PAST MEDICAL HISTORY Diagnosis Date Headache NEGATIVE MEDICAL HISTORY PAST SURGICAL HISTORY Procedure Laterality Date PAST SURGICAL HISTORY OF 2019 [place] teeth extracted TONSILLECTOMY AND ADENOIDECTOMY HX ALLERGIES Sumatriptan MEDICATIONS doxycycline monohydrate 100 mg tablet Take 1 tablet by mouth two times a day for 7 days. albuterol HFA (PROAIR HFA) 90 mcg/actuation inhaler Inhale 2 puffs as instructed every 4 hours as needed. vit no.124/iron/folic ( VITAMIN ORAL) Take by mouth. (Patient not taking: Reported on 04/16/2025) FAMILY HISTORY Problem Relation Age of Onset Cervical Cancer Sister Social History Tobacco Use Smoking status: Never Smokeless tobacco: Never Vaping Use Vaping status: Never Used Substance Use Topics Alcohol use: Never Drug use: Never Review of Systems Constitutional: Positive for fever. Negative for chills and fatigue. HENT: Positive for rhinorrhea and sore throat. Negative for ear discharge, ear pain, sinus pressure and sinus pain. Eyes: Negative for discharge and redness. Respiratory: Positive for cough. Negative for shortness of breath and wheezing. Cardiovascular: Negative for chest pain. Skin: Negative for rash. Objective BP 110/86 Pulse 117 Temp 37.8 C (100.1 F) Resp 20 Wt 120 kg (264 lb 8.8 oz) LMP (LMP Unknown) SpO2 100% No BMI 46.86 kg/m Physical Exam Constitutional: General: She is not in acute distress. Appearance: She is ill-appearing (mild). She is not toxic-appearing or diaphoretic. HENT: Head: Normocephalic and atraumatic. Right Ear: Hearing and external ear normal. Left Ear: Hearing and external ear normal. Nose: Nose normal. Mouth/Throat: Pharynx: Uvula midline. Eyes: General: Lids are normal. No scleral icterus. Right eye: No discharge. Left eye: No discharge. Conjunctiva/sclera: Conjunctivae normal. Pupils: Pupils are equal, round, and reactive to light. Neck: Trachea: Trachea normal. Cardiovascular: Rate and Rhythm: Normal rate and regular rhythm. Heart sounds: Normal heart sounds. Pulmonary: Effort: Pulmonary effort is normal. Breath sounds: Normal breath sounds. Musculoskeletal: Cervical back: Normal range of motion and neck supple. Lymphadenopathy: Cervical: No cervical adenopathy. Skin: Findings: No rash. Neurological: Mental Status: She is alert and oriented to person, place, and time. {ASSESSMENT/PLAN: 1. Community acquired pneumonia, unspecified laterality - ICD9: 486, ICD10: J18.9 (primary diagnosis) - Discussed supportive care, - Limit exposure to smoke and other inhaled irritants - Discussed possible red flags and when to seek medical attention - Follow up in 3-5 days or sooner if no better or worse -If you experience chest pain/shortness of breath go to ER - DOXYCYCLINE MONOHYDRATE 100 MG TABLET - ALBUTEROL SULFATE HFA 90 MCG/ACTUATION AEROSOL INHALER 2. Acute cough - ICD9: 786.2, ICD10: R05.1 - XR CHEST 2V FRONTAL/LAT 3. Sore throat - ICD9: 462, ICD10: J02.9 Negative - ALERE STREP A TEST (AG) Osito Gaxiola APRN.HAND CANDY MOLDER History and Record Review External record(s) reviewed: prior outpatient record. Disposition The patient was discharged. Procedures documented in this encounter [facility] 04-16-2025 History of Presen t illness Narrative Radiology Service Progress Note PATIENT NAME: Gabrielle V Glen DATE OF SERVICE: April 16, 2025 TIME: 12:12 PM PATIENT IDENTITY VERIFICATION COMPLETED USING TWO (2) IDENTIFIERS: Name and Date of confirmed by patient verbally. FALL SCREENING: Has the patient had 2 falls in the last year or 1 fall with injury or currently using an Ambulatory Assistive Device (Walker, Cane, Wheelchair, Crutches, etc.)? No PATIENT GENDER DATA: Assigned female at . status: : No status: NO. PATIENT RELEVANT IMPLANT DATA REVIEWED: Not Applicable PATIENT PRESENTS WITH AN IMPLANTABLE OR ATTACHED COMMERCIAL TECHNICIAN: No RADIOLOGY DEPARTMENT: General X-ray: Exam(s) Completed: Chest X-Ray PERIPHERAL IV DATA: Not applicable SIGNED BY: Jeffrey Luke April 16, 2025 12:12 PM documented in this encounter [facility] 04-16-2025 Note HNO ID: [id number] Author: CARMELITA HERNANDEZ Tech Service: ? Author Type: Technologist Type: Progress Notes Filed: 04/16/2025 12:18 Note Text: Radiology Service Progress Note PATIENT NAME: Gabrielle Carroll DATE OF SERVICE: April 16, 2025 TIME: 12:12 PM PATIENT IDENTITY VERIFICATION COMPLETED USING TWO (2) IDENTIFIERS: Name and Date of confirmed by patient verbally. FALL SCREENING: Has the patient had 2 falls in the last year or 1 fall with injury or currently using an Ambulatory Assistive Device (Walker, Cane, Wheelchair, Crutches, etc.)? No PATIENT GENDER DATA: Assigned female at . status: : No status: NO. PATIENT RELEVANT IMPLANT DATA REVIEWED: Not Applicable PATIENT PRESENTS WITH AN IMPLANTABLE OR ATTACHED COMMERCIAL TECHNICIAN: No RADIOLOGY DEPARTMENT: General X-ray: Exam(s) Completed: Chest X-Ray PERIPHERAL IV DATA: Not applicable SIGNED BY: Jeffrey Luke April 16, 2025 12:12 PM [facility] 03-17-2025 Evaluation note Diagnosis Onset Date Resolution Gallstones acute March 17 1:55pm Right upper quadrant abdominal pain inactive March 17, 2025 1:55pm [facility] Work Phone: [phone]) 599-681904-20-2025 Radiology Diagnostic study note [facility] Imaging Services [address] [place], [place] [address] Abdomen/Pelvis W IV Cont ONLY MR#: [id number] Acct: [id number] Name: GABRIELLE CARROLL Rep #: [id number] : 2000 F 24 From: Anca Rider DO PCP: Dr. Barry Reeves MD Status: REG ER Study:Abdomen/Pelvis W IV Cont ONLY Date of E xam: 03/09/25 Exam# [id number] Ordering Dr: Deuce Levy DO PROCEDURE: ABDOMEN/PELVIS W IV CONT ONLY 03/09/2025 REASON FOR EXAM: ABDOMINAL PAIN TECHNIQUE: Abdomen and pelvis CT with intravenous contrast. Coronal and Sagittal reconstruction series were provided. PATIENT PREPARATION: Per protocol ORAL CONTRAST TYPE: None. AMOUNT: mL CONTRAST: Isovue 370 VOLUME: 98 mL Not Provided Gauge IV One or more dose reduction techniques were used (e.g., Automated exposure control, adjustment of the mA and/or kV according to patient size, use of iterative reconstruction technique. RADIATION DOSE SUMMARY: CTDlvol: 24 mGy DLP: 1363 mGycm COMPARISON: None FINDINGS: Lung bases: Unremarkable Liver: Normal size. No mass. Gallbladder: Unremarkable Spleen: Normal size. Pancreas: Normal size without evidence of mass surrounding inflammation or ductal dilation. Adrenals: Unremarkable Kidneys: Normal renal sizes. No hydronephrosis. Bladder: Unremarkable Reproductive Organs: Normal uterine size and contour. Ovaries are unremarkable. Bowel: Unremarkable Appendix: Unremarkable Lymph nodes: No lymphadenopathy. Vasculature: The abdominal aorta and IVC are normal. Peritoneum / Retroperitoneum: No free air or free fluid. Bones: Unremarkable CT/Abdomen/Pelvis W IV Cont ONLY IMPRESSION: NORMAL CT ABDOMEN AND PELVIS WITH CONTRAST. Reading [facility] CC: Dr. Deuce Levy DO; Dr. Barry Reeves MD ~ Oil Exploration Engineer: Signed [facility]03-05-2025 Hospital Discharge instructions Patient Education 01/22/2025 15:58:00 Dysfunctional Uterine Bleeding Dysfunctional Uterine Bleeding Dysfunctional uterine bleeding, also called abnormal uterine bleeding, is a condition in which bleeding is abnormal and occurs at unexpected times of the month. This happens because of changes in thehormones that help control a woman s menstrual cycle each month. The bleeding may be heavier or environmental protection economist than normal. If you have heavy bleeding often, this can leadto a problem called anemia. With anemia, your red blood cell count is too low. Red blood cells helpcarry oxygen throughout your body. Severe anemia may cause you to look pale and feel very weak or tired. You might also become short of breath easily. To treat dysfunctional uterine bleeding, medicines are often tried first. If these don t help, or if you have additional symptoms or have reached menopause, further testing and treatments may be needed. Discuss all of your options with your provider. Home care Medicines If you re prescribed medicines, be sure to take them as directed. Some of the more common medicinesyou may be prescribed include: Hormone therapy (Options include most methods of hormonal control such as pills, shots, or a hormone-releasing IUD) Nonsteroidal anti-inflammatory drugs (NSAIDs), such as ibuprofen Iron supplements, if you have anemia General care Get plenty of rest if you tire easily. Avoid heavy exertion. To help relieve pain or cramping that may occur with bleeding, try using a heating pad on the lowerbelly or back. A warm bath may also help. Follow-up care Follow up with your healthcare provider, or as directed. When to seek medical advice Call your healthcare provider right away if: Bleeding becomes heavy (soaking 1 pad or tampon every hour for 3 hours) Increased abdominal pain Irregular bleeding worsens or does not get better even with treatment Fever of 100.4 F (38 C) or higher, or as directed by your provider Signs of anemia, such as pale skin, extreme fatigue or weakness, or shortness of breath Dizziness or fainting [id number] [employer]. [address] [place] [address], [place] [address]. All rights reserved. This information is not intended as a substitute for professional medical care. Always follow yourhealthcare professional's instructions. Follow Up Care 01/22/2025 13:05:50 With:BARRY REEVES MD Address: [address] [place] [address] [phone] When:2-4 days [facility] 03-05-2025 Note Discharge Instructions Thank you for allowing [facility] to assist you with your healthcare needs. The following is importantdischarge information regarding your hospital visit. Diagnosis from Today's Visit Menorrhagia What to Do Next Instructions from Your Care Team Please continue to take Motrin and follow up with OBGYN. If you are still having heavy bleeding andstarting to pass out or become short of breath you would need to come back to the ER. Discharge Return to Work, School, or Sports (Return to Work, School, or Sports) - Ordered -- 01/24/25, May return to: work, 01/22/25 16:01:00 EST Post Acute Orders No qualifying data available. You Need to Schedule the Following Appointments Follow Up with BARRY REEVES MD When:Within 2-4 days Where:[address] [place] [address] [phone] Allergies Imitrex Rash Medications Please ask your primary doctor or pharmacist before taking any other medication not listed, including over the counter drugs, herbal medications, vitamins and or supplements as they may interact withyour home medications. What How Much When Instructions Last Dose Unchanged citric acid/ lactic ac/ potass bitart top (Phexxi 1.8%-1%-0.4% vaginal gel) See instructions 1 appl Vaginal up to 1 hour before intercourse, As needed for Other (see order comments) before or up to 1 hour before intercourse Unchanged docusate (Dulcolax Stool Softener) 100 Milligram by mouth Two (2) times a day as needed for as needed for constipation Unchanged ferrous sulfate (IRON (ferrous sulfate 325 mg) 65 mg oral tablet) 1 tab(s) by mouth Once a day Take with food. Unchanged hydrOXYzine (Vistaril 25 mg oral capsule) 1 cap by mouth Four (4) times a day as needed for for anxiety Unchanged multivitamin, ( Multivitamins with Vitamin B Complex, Vitamin C, Minerals and L-Methylfolate oral capsule) 1 cap by mouth Every day Please take this list to your next doctor s visit. Bring all medications you take, including over the counter medications, herbals and other supplements with you to your doctor s visit. Patients and families are reminded to discard old lists and to update any records with all medication providers or retail pharmacies. Education Materials Dysfunctional Uterine Bleeding Dysfunctional uterine bleeding, also called abnormal uterine bleeding, is a condition in which bleeding is abnormal and occurs at unexpected times of the month. This happens because of changes in thehormones that help control a woman s menstrual cycle each month. The bleeding may be heavier or environmental protection economist than normal. If you have heavy bleeding often, this can leadto a problem called anemia. With anemia, your red blood cell count is too low. Red blood cells helpcarry oxygen throughout your body. Severe anemia may cause you to look pale and feel very weak or tired. You might also become short of breath easily. To treat dysfunctional uterine bleeding, medicines are often tried first. If these don t help, or if you have additional symptoms or have reached menopause, further testing and treatments may be needed. Discuss all of your options with your provider. Home care Medicines If you re prescribed medicines, be sure to take them as directed. Some of the more common medicinesyou may be prescribed include: Hormone therapy (Options include most methods of hormonal control such as pills, shots, or a hormone-releasing IUD) Nonsteroidal anti-inflammatory drugs (NSAIDs), such as ibuprofen Iron supplements, if you have anemia General care Get plenty of rest if you tire easily. Avoid heavy exertion. To help relieve pain or cramping that may occur with bleeding, try using a heating pad on the lowerbelly or back. A warm bath may also help. Follow-up care Follow up with your healthcare provider, or as directed. When to seek medical advice Call your healthcare provider right away if: Bleeding becomes heavy (soaking 1 pad or tampon every hour for 3 hours) Increased abdominal pain Irregular bleeding worsens or does not get better even with treatment Fever of 100.4 F (38 C) or higher, or as directed by your provider Signs of anemia, such as pale skin, extreme fatigue or weakness, or shortness of breath Dizziness or fainting [phone] [employer]. [address] [place] [address], [place] [address]. All rights reserved. This information is not intended as a substitute for professional medical care. Always follow yourhealthcare professional's instructions. Additional Information VACCINATE! IT SAVES LIVES! Members of the community who have not yet received the COVID-19 vaccine and would like to receive it can visit one of [facility] vaccine clinics. There are many vaccine clinic locations within the [facility]. For locations and available times, please visit [email or web address]/. It is important to note that some COVID mobile vaccine clinics are held outdoors and may be canceled in rainy or stormy conditions. To learn more about pediatric vaccinations (ages 5-11), we invite you to visit the [facility] webpage. https://www.[facility].org/pages/9848-Yffxx-Voxmotqxzpf-Soizclgrxe-Loxxs-Cgp stions.htmlTo learn more about the COVID-19 vaccine, we invite you to visit the CDC website for a list of frequently asked questions. https://www.cdc.gov/coronavirus/2019-ncov/vaccines/faq.html [facility] Patient Portal Access Instructions: Stay connected with your healthcare team and access your personal medical information anytime with the [facility] Patient Portal. If you would like a full copy of your medical records please contact the [facility] Medical Records Department Monday through Monday between 8a.m. and 4:30p.m. Please follow the directions below to access the portal: 1.Access the email account you provided upon registration to the hospital.2.Look for an invitation email from [facility].3.Open the email and access the invitation link: Accept Invitation to [facility]4.Fill in the required brown to create your account. Sign into www.[employer] with your username and password that you created in the above steps to stay up to date. You can then view a summary of results, a summary of your visits, and the ability to download your summaries to your computer or send the information securely to a physician. Remember that your healthcare information is confidential, so carefully consider who you will allow to register on the [facility] Patient Portal for access to your information. You can also access the [facility] Patient Portal on the [employer] [address]. Simply click on Health Records under [employer] and then click on the [facility] logo. HOW TO SAFELY DISPOSE OF PRESCRIPTION MEDICATIONS Please use one of the following methods to safely dispose of your unused medications. 1.Use a drug disposal kit: the drug disposal pouch allows you to safely discard your old and unuseddrugs. Ask your nurse to give you one when you are discharged.2.Visit a local take-back location: Many local pharmacies and police departments have programs that collect old and unwanted prescriptiondrugs. Call your local pharmacy or go to http://Sprig.[employer]/5O9Wq4a to find one close to you.3.Make use of household items: Use cat litter or old coffee grounds to dispose medications if other options arenot available. Mix your drugs with these household products, seal them in an airtight container andthrow it into the garbage. Call [facility]: [phone] to be sure your drugs can be disposed of in this way. Some medicines may require a different approach.4.Never flush your medications down the toilet. IF YOU HAVE BEEN PRESCRIBED AN OPIOIDS FOR PAIN If you have been prescribed an opioid (such as hydrocodone, oxycodone or morphine), it is critical to understand the possible side effects and risks of opioid pain medications. Even when taken as directed, opioids can have several side effects including: Tolerance, meaning you might need to take more of a medication for the same pain relief. Nausea, vomiting and/or constipation. Sleepiness, dizziness, dry mouth, confusion, depression or itching. Physical dependence, meaning you have withdrawal symptoms when a medication is stopped ? this can develop within a few days. KNOW YOUR RESPONSIBILITIES It is important to know exactly how much and how often to take the opioid pain medications you are prescribed. Never take opioids in higher amounts or more often than prescribed. Do not combine opioids with alcohol or other drugs that cause drowsiness, such as benzodiazepines, also known as benzos,including diazepam and alprazolam, muscle relaxants or sleep aids. Never sell or share prescriptionopioids. This is illegal. Store opioids in a secure place and out of reach of others (including children, family, friends and visitors). The last page(s) of this document has been signed and retained as a CHART COPY Signatures Patient Education Materials Dysfunctional Uterine Bleeding Medication Leaflets My discharge plan and instructions have been reviewed and explained to me and IGLEN ALLISON V understand my current condition and have read and understand these discharge instructions. I have received a written copy of the plan/instructions. If I have questions, I am aware that I should contact my doctor. Patient/Surgical Assistant Certified Signature: Date/Time: Relationship to Patient: Witness Name/Signature: Date/Time: [facility]03-05-2025 Note* Exam Date Time Procedure Performing Provider Status 01/22/25 3:04 PM US Pelvis Non-OB Complete MAN GARCIA DO; Auth (Verified) [id number] ORIGINAL EXAMINATION: PELVIC ULTRASOUND 01/22/2025 TECHNIQUE: Transabdominal pelvic ultrasound was performed at the bedside. Study technically limited by body habitus. COMPARISON: None HISTORY: ORDERING SYSTEM PROVIDED HISTORY: Reason for Exam: pelvic pain All images are recorded and archived. FINDINGS: Measurements: Uterus: 8.6 x 3.8 x 5.1 cm Endometrial stripe: 7 mm Right Ovary:3.8 x 2.1 x 2.6 cm Left Ovary: 3.0 x 2.4 x 2.0 cm Ultrasound Findings: Uterus: Uterus demonstrates normal myometrial echotexture. Endometrial stripe: Endometrial stripe is within normal limits. No abnormal hyperemia associated with the endometrium. Right Ovary: Right ovary is within normal limits. There is normal arterial and venous Doppler flow. Left Ovary: Left ovary is within normal limits. There is normal arterial and venous Doppler flow. Free Fluid: No evidence of free fluid. IMPRESSION: Unremarkable pelvic ultrasound. Interpreted by: Man Garcia DO Preliminary Report By: Man Garcia DO Electronically signed By Man Garcia DO Dictated Date: 01/22/2025 3:49:59 PM Prelim Date: 01/22/2025 3:52:43 PM Sign Date: 01/22/2025 3:52:43 PM Ordering Provider: JENNIFER CUEVA [facility]11-16-2024 Hospital Discharge instructions Patient Education 10/05/2024 15:54:10 Rib Contusion Rib Contusion A rib contusion is a bruise to one or more rib bones. It may cause pain, tenderness, swelling and apurplish discoloration. There may be a sharp pain while breathing. You will be assessed for other injuries. You will likely be given pain medicine. Rib contusions heal on their own, without further treatment. However, pain may take weeks to months to go away. Note that a small crack (fracture) in the rib may cause the same symptoms as a rib contusion. The small crack may not be seen on a chest X-ray. However, the conditions are managed in the same way. Home care Rest. Avoid heavy lifting, strenuous exertion, or any activity that causes pain. Ice the area to reduce pain and swelling. Put ice cubes in a plastic bag or use a cold pack. (Wrap the cold source in a thin towel. Do not place it directly on your skin.) Ice the injured area for 20minutes every 1 to 2 hours the first day. Continue with ice packs 3 to 4 times a day for the next 2days, then as needed for the relief of pain and swelling. Take any prescribed pain medicine as directed by your healthcare provider. If none was prescribed, take acetaminophen, ibuprofen, or naproxen to control pain. If you have a significant injury, you may be given a device called an incentive spirometer to keep your lungs healthy. Use as directed. Follow-up care Follow up with your healthcare provider during the next week or as directed. When to seek medical advice Call your healthcare provider for any of the following: Shortness of breath or trouble breathing Increasing chest pain with breathing Coughing Dizziness, weakness, or fainting New or worsening pain Fever of 100.4 F (38 C) or higher, or as directed by your healthcare provider [phone] [employer]. [address] [place] [address], [place] [address]. All rights reserved. This information is not intended as a substitute for professional medical care. Always follow yourhealthcare professional's instructions. Follow Up Care 10/05/2024 15:40:36 With:BARRY REEVES MD Address: [address] [place] [address] [phone] When:2-4 days [facility] 11-16-2024 Emergency department Discharge summary Discharge Instructions Thank you for allowing [facility] to assist you with your healthcare needs. The following is importantdischarge information regarding your hospital visit. What to Do Next Instructions from Your Care Team No qualifying data available. Post Acute Orders No qualifying data available. You Need to Schedule the Following Appointments Follow Up with BARRY REEVES MD When:Within 2-4 days [facility] [facility] [place] [address] [phone] Allergies Imitrex Rash Medications Please ask your primary doctor or pharmacist before taking any other medication not listed, including over the counter drugs, herbal medications, vitamins and or supplements as they may interact withyour home medications. What How Much When Instructions Last Dose New ketorolac (ketorolac 10 mg oral tablet) 1 tab(s) by mouth Every 6 hours Duration: 5 Days Printed Prescription Unchanged citric acid/ lactic ac/ potass bitart top (Phexxi 1.8%-1%-0.4% vaginal gel) See instructions 1 appl Vaginal up to 1 hour before intercourse, As needed for Other (see order comments) before or up to 1 hour before intercourse Unchanged docusate (Dulcolax Stool Softener) 100 Milligram by mouth Two (2) times a day as needed for as needed for constipation Unchanged ferrous sulfate (IRON (ferrous sulfate 325 mg) 65 mg oral tablet) 1 tab(s) by mouth Once a day Take with food. Unchanged hydrOXYzine (Vistaril 25 mg oral capsule) 1 cap by mouth Four (4) times a day as needed for for anxiety Unchanged multivitamin, ( Multivitamins with Vitamin B Complex, Vitamin C, Minerals and L-Methylfolate oral capsule) 1 cap by mouth Every day Please take this list to your next doctor s visit. Bring all medications you take, including over the counter medications, herbals and other supplements with you to your doctor s visit. Patients and families are reminded to discard old lists and to update any records with all medication providers or retail pharmacies. Education Materials Rib Contusion A rib contusion is a bruise to one or more rib bones. It may cause pain, tenderness, swelling and apurplish discoloration. There may be a sharp pain while breathing. You will be assessed for other injuries. You will likely be given pain medicine. Rib contusions heal on their own, without further treatment. However, pain may take weeks to months to go away. Note that a small crack (fracture) in the rib may cause the same symptoms as a rib contusion. The small crack may not be seen on a chest X-ray. However, the conditions are managed in the same way. Home care Rest. Avoid heavy lifting, strenuous exertion, or any activity that causes pain. Ice the area to reduce pain and swelling. Put ice cubes in a plastic bag or use a cold pack. (Wrap the cold source in a thin towel. Do not place it directly on your skin.) Ice the injured area for 20minutes every 1 to 2 hours the first day. Continue with ice packs 3 to 4 times a day for the next 2days, then as needed for the relief of pain and swelling. Take any prescribed pain medicine as directed by your healthcare provider. If none was prescribed, take acetaminophen, ibuprofen, or naproxen to control pain. If you have a significant injury, you may be given a device called an incentive spirometer to keep your lungs healthy. Use as directed. Follow-up care Follow up with your healthcare provider during the next week or as directed. When to seek medical advice Call your healthcare provider for any of the following: Shortness of breath or trouble breathing Increasing chest pain with breathing Coughing Dizziness, weakness, or fainting New or worsening pain Fever of 100.4 F (38 C) or higher, or as directed by your healthcare provider [phone] [employer]. [address] [place] [address]. All rights reserved. This information is not intended as a substitute for professional medical care. Always follow yourhealthcare professional's instructions. Additional Information VACCINATE! IT SAVES LIVES! Members of the community who have not yet received the COVID-19 vaccine and would like to receive it can visit one of [facility] vaccine clinics. There are many vaccine clinic locations within the [facility]. For locations and available times, please visit www.gettheshot.[email or web address].[place].gov/. It is important to note that some COVID mobile vaccine clinics are held outdoors and may be canceled in rainy or stormy conditions. To learn more about pediatric vaccinations (ages 5-11), we invite you to visit the [facility] webpage. https://www.[facility].org/pages/9050-Mhwrh-Snyhrmfhckz-Aksgpvjyou-Ofkyt-Wdr stions.htmlTo learn more about the COVID-19 vaccine, we invite you to visit the CDC website for a list of frequently asked questions. https://www.cdc.gov/coronavirus/2019-ncov/vaccines/faq.html [facility] Patient Portal Access Instructions: Stay connected with your healthcare team and access your personal medical information anytime with the [facility] Patient Portal. If you would like a full copy of your medical records please contact the [facility] Medical Records Department Monday through Monday between 8a.m. and 4:30p.m. Please follow the directions below to access the portal: 1.Access the email account you provided upon registration to the [facility].2.Look for an invitation email from [facility].3.Open the email and access the invitation link: Accept Invitation to [facility]4.Fill in the required brown to create your account. Sign into www.[employer] with your username and password that you created in the above steps to stay up to date. You can then view a summary of results, a summary of your visits, and the ability to download your summaries to your computer or send the information securely to a physician. Remember that your healthcare information is confidential, so carefully consider who you will allow to register on the [facility] Patient Portal for access to your information. You can also access the [facility] Patient Portal on the [employer] [address]. Simply click on Health Records under [employer] and then click on the [employer] logo. HOW TO SAFELY DISPOSE OF PRESCRIPTION MEDICATIONS Please use one of the following methods to safely dispose of your unused medications. 1.Use a drug disposal kit: the drug disposal pouch allows you to safely discard your old and unuseddrugs. Ask your nurse to give you one when you are discharged.2.Visit a local take-back location: Many local pharmacies and police departments have programs that collect old and unwanted prescriptiondrugs. Call your local pharmacy or go to http://Sprig[employer]/3P9Vo1r to find one close to you.3.Make use of household items: Use cat litter or old coffee grounds to dispose medications if other options arenot available. Mix your drugs with these household products, seal them in an airtight container andthrow it into the garbage. Call [facility]: [phone] to be sure your drugs can be disposed of in this way. Some medicines may require a different approach.4.Never flush your medications down the toilet. IF YOU HAVE BEEN PRESCRIBED AN OPIOIDS FOR PAIN If you have been prescribed an opioid (such as hydrocodone, oxycodone or morphine), it is critical to understand the possible side effects and risks of opioid pain medications. Even when taken as directed, opioids can have several side effects including: Tolerance, meaning you might need to take more of a medication for the same pain relief. Nausea, vomiting and/or constipation. Sleepiness, dizziness, dry mouth, confusion, depression or itching. Physical dependence, meaning you have withdrawal symptoms when a medication is stopped ? this can develop within a few days. KNOW YOUR RESPONSIBILITIES It is important to know exactly how much and how often to take the opioid pain medications you are prescribed. Never take opioids in higher amounts or more often than prescribed. Do not combine opioids with alcohol or other drugs that cause drowsiness, such as benzodiazepines, also known as benzos,including diazepam and alprazolam, muscle relaxants or sleep aids. Never sell or share prescriptionopioids. This is illegal. Store opioids in a secure place and out of reach of others (including children, family, friends and visitors). The last page(s) of this document has been signed and retained as a CHART COPY Signatures Patient Education Materials Rib Contusion Medication Leaflets My discharge plan and instructions have been reviewed and explained to me and I,GABRIELLE CARROLL V understand my current condition and have read and understand these discharge instructions. I have received a written copy of the plan/instructions. If I have questions, I am aware that I should contact my doctor. Patient/Surgical Assistant Certified Signature: Date/Time: Relationship to Patient: Witness Name/Signature: Date/Time: [facility]11-16-2024 Note ORIGINAL EXAMINATION: TWO XRAY VIEWS OF THE CHEST10/05/2024 4:11 pm COMPARISON: Chest radiograph 10/04/2024 HISTORY: ORDERING SYSTEM PROVIDED HISTORY: Reason for Exam: chest pain FINDINGS: The cardiomediastinal silhouette is stable. There is no pulmonary vascular congestion. Hypoventilatory changes. No large focal consolidative opacity. No pleural effusion. No pneumothorax. IMPRESSION: Low lung volumes and hypoventilatory changes. No definite focal consolidation. I have personally reviewed the images of this examination and agree with the resident's findings and interpretation. Interpreted by: Marcos Gonzalez Preliminary Report By: Elvira Bethea Electronically signed By Marcos Gonzalez Dictated Date: 10/05/2024 4:16:38 PM Prelim Date: 10/05/2024 4:18:14 PM Sign Date: 10/05/2024 4:20:37 PM Ordering Provider: [facility]11-16-2024 Hospital Discharge instructions Patient Education 10/04/2024 23:04:25 Rib Contusion Rib Contusion A rib contusion is a bruise to one or more rib bones. It may cause pain, tenderness, swelling and apurplish discoloration. There may be a sharp pain while breathing. You will be assessed for other injuries. You will likely be given pain medicine. Rib contusions heal on their own, without further treatment. However, pain may take weeks to months to go away. Note that a small crack (fracture) in the rib may cause the same symptoms as a rib contusion. The small crack may not be seen on a chest X-ray. However, the conditions are managed in the same way. Home care Rest. Avoid heavy lifting, strenuous exertion, or any activity that causes pain. Ice the area to reduce pain and swelling. Put ice cubes in a plastic bag or use a cold pack. (Wrap the cold source in a thin towel. Do not place it directly on your skin.) Ice the injured area for 20minutes every 1 to 2 hours the first day. Continue with ice packs 3 to 4 times a day for the next 2days, then as needed for the relief of pain and swelling. Take any prescribed pain medicine as directed by your healthcare provider. If none was prescribed, take acetaminophen, ibuprofen, or naproxen to control pain. If you have a significant injury, you may be given a device called an incentive spirometer to keep your lungs healthy. Use as directed. Follow-up care Follow up with your healthcare provider during the next week or as directed. When to seek medical advice Call your healthcare provider for any of the following: Shortness of breath or trouble breathing Increasing chest pain with breathing Coughing Dizziness, weakness, or fainting New or worsening pain Fever of 100.4 F (38 C) or higher, or as directed by your healthcare provider [phone] [employer]. [address] [place] [address]. All rights reserved. This information is not intended as a substitute for professional medical care. Always follow [facility] professional's instructions. 10/04/2024 23:04:22 Chest Wall Contusion Chest Contusion A contusion is a bruise to the skin, muscle, or ribs. It may cause pain, tenderness, and swelling. It may turn the skin purple until it heals. Contusions take a few days to a few weeks to heal. Home care Follow these guidelines when caring for yourself at home: Rest. Don t do any heavy lifting or strenuous activity. Don t do any activity that causes pain. Put an ice pack on the injured area. Do this for 20 minutes every 1 to 2 hours the first day. You can make an ice pack by wrapping a plastic bag of ice cubes in a thin towel. Continue to use the ice pack 3 to 4 times a day for the next 2 days. Then use the ice pack as needed to ease pain and swelling. After 1 to 2 days you may put a warm compress on the area. Do this for 10 minutes several times a day. A warm compress is a clean cloth that s damp with warm water. Hold a pillow to the affected area when you cough. This will help ease pain. You may use hhod-nqs-shlxrag pain medicine such as acetaminophen or ibuprofen to control pain, unless another pain medicine was prescribed. If you have chronic liver or kidney disease, talk with yourhealthcare provider before using these medicines. Also talk with your provider if you ve had a stomach ulcer or gastrointestinal bleeding. Follow-up care Follow up with your healthcare provider, or as advised. When to seek medical advice Call your healthcare provider right away if any of these occur: New abdominal pain or abdominal pain that gets worse Fever of 100.4 F (38 C) or higher, or as directed by your healthcare provider Call 911 Call 911 if any of these occur: Dizziness, weakness, or fainting Shortness of breath, trouble breathing, or breathing fast Chest pain gets worse when you breathe Severe pain that comes on suddenly or lasts more than an hour [id number] [employer] [place] [address]. All rights reserved. This information is not intended as a substitute for professional medical care. Always follow yourhealthcare professional's instructions. Follow Up Care 10/04/2024 22:05:30 With:RONNIE TRUJILLO Address: [address] [place] [address] [place] [address]- When:2-4 days With:BARRY REEVES MD Address: [address] [place] [address]- [phone] When:2-4 days [facility] 11-15-2024 Note Discharge Instructions Thank you for allowing [facility] to assist you with your healthcare needs. The following is importantdischarge information regarding your hospital visit. Diagnosis from Today's Visit Chest wall contusion What to Do Next Instructions from Your Care Team No qualifying data available. Post Acute Orders No qualifying data available. You Need to Schedule the Following Appointments Follow Up with RONNIE TRUJILLO When:Within 2-4 days Where:[address] [place] [address] [place] [address]- Follow Up with BARRY REEVES MD When:Within 2-4 days Where:[address] [place] [address] [phone] Allergies Imitrex Rash Medications Please ask your primary doctor or pharmacist before taking any other medication not listed, including over the counter drugs, herbal medications, vitamins and or supplements as they may interact withyour home medications. What How Much When Instructions Last Dose Unchanged citric acid/ lactic ac/ potass bitart top (Phexxi 1.8%-1%-0.4% vaginal gel) See instructions 1 appl Vaginal up to 1 hour before intercourse, As needed for Other (see order comments) before or up to 1 hour before intercourse Unchanged docusate (Dulcolax Stool Softener) 100 Milligram by mouth Two (2) times a day as needed for as needed for constipation Unchanged ferrous sulfate (IRON (ferrous sulfate 325 mg) 65 mg oral tablet) 1 tab(s) by mouth Once a day Take with food. Unchanged hydrOXYzine (Vistaril 25 mg oral capsule) 1 cap by mouth Four (4) times a day as needed for for anxiety Unchanged multivitamin, ( Multivitamins with Vitamin B Complex, Vitamin C, Minerals and L-Methylfolate oral capsule) 1 cap by mouth Every day Please take this list to your next doctor s visit. Bring all medications you take, including over the counter medications, herbals and other supplements with you to your doctor s visit. Patients and families are reminded to discard old lists and to update any records with all medication providers or retail pharmacies. Education Materials Rib Contusion A rib contusion is a bruise to one or more rib bones. It may cause pain, tenderness, swelling and apurplish discoloration. There may be a sharp pain while breathing. You will be assessed for other injuries. You will likely be given pain medicine. Rib contusions heal on their own, without further treatment. However, pain may take weeks to months to go away. Note that a small crack (fracture) in the rib may cause the same symptoms as a rib contusion. The small crack may not be seen on a chest X-ray. However, the conditions are managed in the same way. Home care Rest. Avoid heavy lifting, strenuous exertion, or any activity that causes pain. Ice the area to reduce pain and swelling. Put ice cubes in a plastic bag or use a cold pack. (Wrap the cold source in a thin towel. Do not place it directly on your skin.) Ice the injured area for 20minutes every 1 to 2 hours the first day. Continue with ice packs 3 to 4 times a day for the next 2days, then as needed for the relief of pain and swelling. Take any prescribed pain medicine as directed by your healthcare provider. If none was prescribed, take acetaminophen, ibuprofen, or naproxen to control pain. If you have a significant injury, you may be given a device called an incentive spirometer to keep your lungs healthy. Use as directed. Follow-up care Follow up with your healthcare provider during the next week or as directed. When to seek medical advice Call your healthcare provider for any of the following: Shortness of breath or trouble breathing Increasing chest pain with breathing Coughing Dizziness, weakness, or fainting New or worsening pain Fever of 100.4 F (38 C) or higher, or as directed by your healthcare provider [phone] [employer]. [address] [place], [place] [id number]. All rights reserved. This information is not intended as a substitute for professional medical care. Always follow yourhealthcare professional's instructions. Chest Contusion A contusion is a bruise to the skin, muscle, or ribs. It may cause pain, tenderness, and swelling. It may turn the skin purple until it heals. Contusions take a few days to a few weeks to heal. Home care Follow these guidelines when caring for yourself at home: Rest. Don t do any heavy lifting or strenuous activity. Don t do any activity that causes pain. Put an ice pack on the injured area. Do this for 20 minutes every 1 to 2 hours the first day. You can make an ice pack by wrapping a plastic bag of ice cubes in a thin towel. Continue to use the ice pack 3 to 4 times a day for the next 2 days. Then use the ice pack as needed to ease pain and swelling. After 1 to 2 days you may put a warm compress on the area. Do this for 10 minutes several times a day. A warm compress is a clean cloth that s damp with warm water. Hold a pillow to the affected area when you cough. This will help ease pain. You may use wkot-nvz-iqzqukz pain medicine such as acetaminophen or ibuprofen to control pain, unless another pain medicine was prescribed. If you have chronic liver or kidney disease, talk with yourhealthcare provider before using these medicines. Also talk with your provider if you ve had a stomach ulcer or gastrointestinal bleeding. Follow-up care Follow up with your healthcare provider, or as advised. When to seek medical advice Call your healthcare provider right away if any of these occur: New abdominal pain or abdominal pain that gets worse Fever of 100.4 F (38 C) or higher, or as directed by your healthcare provider Call 911 Call 911 if any of these occur: Dizziness, weakness, or fainting Shortness of breath, trouble breathing, or breathing fast Chest pain gets worse when you breathe Severe pain that comes on suddenly or lasts more than an hour [phone] [employer]. [address] [place] [address]. All rights reserved. This information is not intended as a substitute for professional medical care. Always follow yourhealthcare professional's instructions. Additional Information VACCINATE! IT SAVES LIVES! Members of the community who have not yet received the COVID-19 vaccine and would like to receive it can visit one of [facility] vaccine clinics. There are many vaccine clinic locations within the [facility]. For locations and available times, please visit www.gettheshot.coronavirus.[place].gov/. It is important to note that some COVID mobile vaccine clinics are held outdoors and may be canceled in rainy or stormy conditions. To learn more about pediatric vaccinations (ages 5-11), we invite you to visit the [facility] webpage. https://www.[email or web address].org/pages/0748-Yypgi-Gbdsazfrrte-Kimzlcvuex-Zxacr-Ear stions.htmlTo learn more about the COVID-19 vaccine, we invite you to visit the CDC website for a list of frequently asked questions. https://www.cdc.gov/coronavirus/2019-ncov/vaccines/faq.html [facility] Patient Portal Access Instructions: Stay connected with your healthcare team and access your personal medical information anytime with the [facility] Patient Portal. If you would like a full copy of your medical records please contact the [facility] Medical Records Department Monday through Monday between 8a.m. and 4:30p.m. Please follow the directions below to access the portal: 1.Access the email account you provided upon registration to the [facility].2.Look for an invitation email from [facility].3.Open the email and access the invitation link: Accept Invitation to [facility]4.Fill in the required brown to create your account. Sign into www.[employer] with your username and password that you created in the above steps to stay up to date. You can then view a summary of results, a summary of your visits, and the ability to download your summaries to your computer or send the information securely to a physician. Remember that your healthcare information is confidential, so carefully consider who you will allow to register on the [facility] Patient Portal for access to your information. You can also access the [facility] Patient Portal on the [employer] [address]. Simply click on Health Records under [employer] and then click on the [employer] logo. HOW TO SAFELY DISPOSE OF PRESCRIPTION MEDICATIONS Please use one of the following methods to safely dispose of your unused medications. 1.Use a drug disposal kit: the drug disposal pouch allows you to safely discard your old and unuseddrugs. Ask your nurse to give you one when you are discharged.2.Visit a local take-back location: Many local pharmacies and police departments have programs that collect old and unwanted prescriptiondrugs. Call your local pharmacy or go to http://Sprig[employer]/9M0Fj8z to find one close to you.3.Make use of household items: Use cat litter or old coffee grounds to dispose medications if other options arenot available. Mix your drugs with these household products, seal them in an airtight container andthrow it into the garbage. Call [facility]: [phone] to be sure your drugs can be disposed of in this way. Some medicines may require a different approach.4.Never flush your medications down the toilet. IF YOU HAVE BEEN PRESCRIBED AN OPIOIDS FOR PAIN If you have been prescribed an opioid (such as hydrocodone, oxycodone or morphine), it is critical to understand the possible side effects and risks of opioid pain medications. Even when taken as directed, opioids can have several side effects including: Tolerance, meaning you might need to take more of a medication for the same pain relief. Nausea, vomiting and/or constipation. Sleepiness, dizziness, dry mouth, confusion, depression or itching. Physical dependence, meaning you have withdrawal symptoms when a medication is stopped ? this can develop within a few days. KNOW YOUR RESPONSIBILITIES It is important to know exactly how much and how often to take the opioid pain medications you are prescribed. Never take opioids in higher amounts or more often than prescribed. Do not combine opioids with alcohol or other drugs that cause drowsiness, such as benzodiazepines, also known as benzos,including diazepam and alprazolam, muscle relaxants or sleep aids. Never sell or share prescriptionopioids. This is illegal. Store opioids in a secure place and out of reach of others (including children, family, friends and visitors). The last page(s) of this document has been signed and retained as a CHART COPY Signatures Patient Education Materials Rib Contusion Chest Wall Contusion Medication Leaflets My discharge plan and instructions have been reviewed and explained to me and I,GABRIELLE CARROLL V understand my current condition and have read and understand these discharge instructions. I have received a written copy of the plan/instructions. If I have questions, I am aware that I should contact my doctor. 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 HISTORY: ORDERING SYSTEM PROVIDED HISTORY: Reason for Exam: pushed into a wall at work and is having left rib pain. left anterolateral rib pain FINDINGS: No evidence of acute fracture of the ribs. No focal rib abnormality. No evidence of acute focal process in the lungs. No evidence of consolidation or pulmonary edema. No pleural effusion or pneumothorax. Cardiomediastinal silhouette demonstrates no acute abnormality. IMPRESSION: No acute abnormality of the ribs. No acute process in the lungs. Interpreted by: Shaji Martinez Preliminary Report By: Shaji Martinez Electronically signed By Shaji Martinez Dictated Date: 10/04/2024 10:53:58 PM Prelim Date: 10/04/2024 10:57:57 PM Sign Date: 10/04/2024 10:57:57 PM Ordering Provider: [facility] [id number] Hospital Discharge instructions Patient Education 07/04/2024 04:17:02 Vomiting (Adult) Vomiting (Adult) Vomiting is a common symptom that may be due to different causes. These include gastroenteritis (stomach flu), food poisoning and gastritis. There are other more serious causes of vomiting which may be hard to diagnose early in the illness. Therefore, it is important to watch for the warning signs listed below. The main danger from repeated vomiting is dehydration. This is due to excess loss of water and minerals from the body. When this occurs, your body fluids must be replaced. Home care If symptoms are severe, rest at home for the next 24 hours. Because your symptoms may be from an infection, wash your hands often and well. If soap and water are not available, use alcohol-based editor producer to keep from spreading the infection to others. Wash your hands for at least 20 seconds. Humming the happy birthday song twice while you wash is aneasy way to make sure you've washed for 20 seconds. Wash your hands after using the toilet, before and after preparing food, before eating food, after changing a diaper, cleaning a wound, caring for a sick person, and blowing your nose, coughing, or sneezing. You should also wash your hands after caring for someone who is sick, touching pet food, ortreats, and touching an animal, or animal waste. You may use acetaminophen or NSAID medicines like ibuprofen or naproxen to control fever, unless another medicine was prescribed. If you have chronic liver or kidney disease or ever had a stomach ulcer or gastrointestinal bleeding, talk with your doctor before using these medicines. Aspirin should never be used in anyone under 18 years of age who is ill with a fever. It may cause severe liver damage. Don't use NSAID medicines if you are already taking one for another condition (like arthritis) or are on aspirin (such as for heart disease, or after a stroke) Don't use tobacco and or drink alcohol, which may worsen your symptoms. If medicines for vomiting were prescribed, take as directed. Once vomiting stops, then follow these guidelines: During the first 12 to 24 hours follow the diet below: Fruit juices. Apple, grape juice, clear fruit drinks, and electrolyte replacement drinks. Beverages. Soft drinks without caffeine; mineral water (plain or flavored), decaffeinated tea and coffee. Soups. Clear broth and bouillon Desserts. Plain gelatin, ice pops, and fruit juice bars. As you feel better, you may add 6 to 8 ounces of yogurt per day. During the next 24 hours you may add the following to the above: Hot cereal, plain toast, bread, rolls, crackers Plain noodles, rice, mashed potatoes, chicken noodle or rice soup Unsweetened canned fruit such as applesauce, bananas (avoid pineapple and citrus) Limit caffeine and chocolate. No spices or seasonings except salt. During the next 24 hours: Gradually resume a normal diet, as you feel better and your symptoms lessen. Follow-up care Follow up with your healthcare provider, or as advised. When to seek medical advice Call your healthcare provider right away if any of these occur: Constant right-sided lower belly pain or increasing general belly pain Continued vomiting (unable to keep liquids down) for 24 hours Vomiting blood or coffee grounds Swollen belly Frequent diarrhea (more than 5 times a day); blood (red or black color) or mucus in diarrhea Reduced urine output or extreme thirst Weakness, dizziness or fainting Unusually drowsy or confused Fever of 100.4 F (38 C) oral or higher, or as directed Yellow color of the eyes or skin [phone] [employer]. [address] [place] [address]. All rights reserved. This information is not intended as a substitute for professional medical care. Always follow yourhealthcare professional's instructions. Follow Up Care 07/04/2024 03:04:22 With:BARRY REEVES Address: [address] [place] [phone] Business (1) When:2-4 days Comments:Follow-up as needed if symptoms persist.Start with clear liquids and slowly advance diet as tolerated.Use Zofran as prescribed for nausea and vomiting as needed.Return to the ED if symptoms worsen. [facility] 08-15-2024 Note Discharge Instructions Thank you for allowing [facility] to assist you with your healthcare needs. The following is importantdischarge information regarding your hospital visit. What to Do Next Instructions from Your Care Team No qualifying data available. Post Acute Orders No qualifying data available. You Need to Schedule the Following Appointments Follow Up with BARRY REEVES When:Within 2-4 days Where:[address] [place] [address] [phone] Business (1) Additional Information: Follow-up as needed if symptoms persist. Start with clear liquids and slowly advance diet as tolerated. Use Zofran as prescribed for nausea and vomiting as needed. Return to the ED if symptoms worsen. Allergies Imitrex Rash Medications Please ask your primary doctor or pharmacist before taking any other medication not listed, including over the counter drugs, herbal medications, vitamins and or supplements as they may interact withyour home medications. What How Much When Instructions Last Dose New ondansetron (Zofran 4 mg oral tablet) 1 tab(s) by mouth Every 6 hours as needed for As needed for nausea and vomiting Duration: 3 Days Printed Prescription Unchanged citric acid/ lactic ac/ potass bitart top (Phexxi 1.8%-1%-0.4% vaginal gel) See instructions 1 appl Vaginal up to 1 hour before intercourse, As needed for Other (see order comments) before or up to 1 hour before intercourse Unchanged docusate (Dulcolax Stool Softener) 100 Milligram by mouth Two (2) times a day as needed for as needed for constipation Unchanged ferrous sulfate (IRON (ferrous sulfate 325 mg) 65 mg oral tablet) 1 tab(s) by mouth Once a day Take with food. Unchanged hydrOXYzine (Vistaril 25 mg oral capsule) 1 cap by mouth Four (4) times a day as needed for for anxiety Unchanged multivitamin, ( Multivitamins with Vitamin B Complex, Vitamin C, Minerals and L-Methylfolate oral capsule) 1 cap by mouth Every day Please take this list to your next doctor s visit. Bring all medications you take, including over the counter medications, herbals and other supplements with you to your doctor s visit. Patients and families are reminded to discard old lists and to update any records with all medication providers or retail pharmacies. Medication Leaflets ondansetron (oral) (on SVETLANA mckee) What is the most important information I should know about ondansetron? You should not use ondansetron if you are also using apomorphine (Apokyn). What is ondansetron? Ondansetron blocks the actions of chemicals in the body that can trigger nausea and vomiting. Ondansetron is used to prevent nausea and vomiting that may be caused by surgery, cancer chemotherapy, or radiation treatment. Ondansetron may be used for purposes not listed in this medication guide. What should I discuss with my health care provider before taking ondansetron? You should not use ondansetron if: you are also using apomorphine (Apokyn); or you are allergic to ondansetron or similar medicines (dolasetron, granisetron, palonosetron). To make sure ondansetron is safe for you, tell your doctor if you have: liver disease; an electrolyte imbalance (such as low levels of potassium or magnesium in your blood); congestive heart failure, slow heartbeats; a personal or family history of long QT syndrome; or a blockage in your digestive tract (stomach or intestines). Ondansetron is not expected to harm an unborn baby. Tell your doctor if you are . It is not known whether ondansetron passes into breast milk or if it could harm a nursing baby. Tell your doctor if you are breast-feeding a baby. Ondansetron is not approved for use by anyone younger than 4 years old. Ondansetron orally disintegrating tablets may contain phenylalanine. Tell your doctor if you have phenylketonuria (PKU). How should I take ondansetron? Follow all directions on your prescription label. Do not take this medicine in larger or smaller amounts or for longer than recommended. Ondansetron can be taken with or without food. The first dose of ondansetron is usually taken before the start of your surgery, chemotherapy, or radiation treatment. Follow your doctor's dosing instructions very carefully. Take the ondansetron regular tablet with a full glass of water. To take the orally disintegrating tablet (Zofran ODT): Keep the tablet in its blister pack until you are ready to take it. Open the package and peel back the foil. Do not push a tablet through the foil or you may damage the tablet. Use dry hands to remove the tablet and place it in your mouth. Do not swallow the tablet whole. Allow it to dissolve in your mouth without chewing. Swallow several times as the tablet dissolves. To use ondansetron oral soluble film (strip) (Zuplenz): Keep the strip in the foil pouch until you are ready to use the medicine. Using dry hands, remove the strip and place it on your tongue. It will begin to dissolve right away. Do not swallow the strip whole. Allow it to dissolve in your mouth without chewing. Swallow several times after the strip dissolves. If desired, you may drink liquid to help swallow the dissolved strip. Wash your hands after using Zuplenz. Measure liquid medicine with the dosing syringe provided, or with a special dose-measuring spoon ormedicine cup. If you do not have a dose-measuring device, ask your pharmacist for one. Store at room temperature away from moisture, heat, and light. Store liquid medicine in an upright position. What happens if I miss a dose? Take the missed dose as soon as you remember. Skip the missed dose if it is almost time for your next scheduled dose. Do not take extra medicine to make up the missed dose. What happens if I overdose? Seek emergency medical attention or call the Poison Help line at . Overdose symptoms may include sudden loss of vision, severe constipation, feeling light-headed, or fainting. What should I avoid while taking ondansetron? Ondansetron may impair your thinking or reactions. Be careful if you drive or do anything that requires you to be alert. What are the possible side effects of ondansetron? Get emergency medical help if you have signs of an allergic reaction: rash, hives; fever, chills, difficult breathing; swelling of your face, lips, tongue, or throat. Call your doctor at once if you have: severe constipation, stomach pain, or bloating; headache with chest pain and severe dizziness, fainting, fast or pounding heartbeats; fast or pounding heartbeats; jaundice (yellowing of the skin or eyes); blurred vision or temporary vision loss (lasting from only a few minutes to several hours); high levels of serotonin in the body--agitation, hallucinations, fever, fast heart rate, overactivereflexes, nausea, vomiting, diarrhea, loss of coordination, fainting. Common side effects may include: diarrhea or constipation; headache; drowsiness; or tired feeling. This is not a complete list of side effects and others may occur. Call your doctor for medical advice about side effects. You may report side effects to FDA at 5-405-MWN-0574. What other drugs will affect ondansetron? Ondansetron can cause a serious heart problem, especially if you use certain medicines at the same time, including antibiotics, antidepressants, heart rhythm medicine, antipsychotic medicines, and medicines to treat cancer, malaria, HIV or AIDS. Tell your doctor about all medicines you use, and those you start or stop using during your treatment with ondansetron. Taking ondansetron while you are using certain other medicines can cause high levels of serotonin to build up in your body, a condition called 'serotonin syndrome,' which can be fatal. Tell your doctor if you also use: medicine to treat depression; medicine to treat a psychiatric disorder; a narcotic (opioid) medication; or medicine to prevent nausea and vomiting. This list is not complete and many other drugs can interact with ondansetron. This includes prescription and pldk-ari-lakbjzm medicines, vitamins, and herbal products. Give a list of all your medicines to any healthcare provider who treats you. Where can I get more information? Your pharmacist can provide more information about ondansetron. Remember, keep this and all other medicines out of the reach of children, never share your medicines with others, and use this medication only for the indication prescribed. Every effort has been made to ensure that the information provided by [employer] ('[employer]') is accurate, up-to-date, and complete, but no guarantee is made to that effect. Drug information contained herein may be time sensitive. [employer] information has been compiled for use by healthcare practitioners and consumers in the [place] and therefore [employer] does not warrant that uses outside of the [place] are appropriate, unless specifically indicated otherwise. [employer] drug information does not endorse drugs, diagnose patients or recommend therapy. [employer] drug information isan informational resource designed to assist licensed healthcare practitioners in caring for their p atients and/or to serve consumers viewing this service as a supplement to, and not a substitute for, the expertise, skill, knowledge and judgment of healthcare practitioners. The absence of a warningfor a given drug or drug combination in no way should be construed to indicate that the drug or drug combination is safe, effective or appropriate for any given patient. [facility] does not assume any responsibility for any aspect of healthcare administered with the aid of information [facility] provides. The information contained herein is not intended to cover all possible uses, directions, precautions, warnings, drug interactions, allergic reactions, or adverse effects. If you have questions about the drugs you are taking, check with your doctor, nurse or pharmacist. Copyright 6113-7795 [facility] [employer]. Version: 16.. Revision Date: 06/22/2023. Education Materials Vomiting (Adult) Vomiting is a common symptom that may be due to different causes. These include gastroenteritis (stomach flu), food poisoning and gastritis. There are other more serious causes of vomiting which may be hard to diagnose early in the illness. Therefore, it is important to watch for the warning signs listed below. The main danger from repeated vomiting is dehydration. This is due to excess loss of water and minerals from the body. When this occurs, your body fluids must be replaced. Home care If symptoms are severe, rest at home for the next 24 hours. Because your symptoms may be from an infection, wash your hands often and well. If soap and water are not available, use alcohol-based editor producer to keep from spreading the infection to others. Wash your hands for at least 20 seconds. Humming the happy birthday song twice while you wash is aneasy way to make sure you've washed for 20 seconds. Wash your hands after using the toilet, before and after preparing food, before eating food, after changing a diaper, cleaning a wound, caring for a sick person, and blowing your nose, coughing, or sneezing. You should also wash your hands after caring for someone who is sick, touching pet food, ortreats, and touching an animal, or animal waste. You may use acetaminophen or NSAID medicines like ibuprofen or naproxen to control fever, unless another medicine was prescribed. If you have chronic liver or kidney disease or ever had a stomach ulcer or gastrointestinal bleeding, talk with your doctor before using these medicines. Aspirin should never be used in anyone under 18 years of age who is ill with a fever. It may cause severe liver damage. Don't use NSAID medicines if you are already taking one for another condition (like arthritis) or are on aspirin (such as for heart disease, or after a stroke) Don't use tobacco and or drink alcohol, which may worsen your symptoms. If medicines for vomiting were prescribed, take as directed. Once vomiting stops, then follow these guidelines: During the first 12 to 24 hours follow the diet below: Fruit juices. Apple, grape juice, clear fruit drinks, and electrolyte replacement drinks. Beverages. Soft drinks without caffeine; mineral water (plain or flavored), decaffeinated tea and coffee. Soups. Clear broth and bouillon Desserts. Plain gelatin, ice pops, and fruit juice bars. As you feel better, you may add 6 to 8 ounces of yogurt per day. During the next 24 hours you may add the following to the above: Hot cereal, plain toast, bread, rolls, crackers Plain noodles, rice, mashed potatoes, chicken noodle or rice soup Unsweetened canned fruit such as applesauce, bananas (avoid pineapple and citrus) Limit caffeine and chocolate. No spices or seasonings except salt. During the next 24 hours: Gradually resume a normal diet, as you feel better and your symptoms lessen. Follow-up care Follow up with your healthcare provider, or as advised. When to seek medical advice Call your healthcare provider right away if any of these occur: Constant right-sided lower belly pain or increasing general belly pain Continued vomiting (unable to keep liquids down) for 24 hours Vomiting blood or coffee grounds Swollen belly Frequent diarrhea (more than 5 times a day); blood (red or black color) or mucus in diarrhea Reduced urine output or extreme thirst Weakness, dizziness or fainting Unusually drowsy or confused Fever of 100.4 F (38 C) oral or higher, or as directed Yellow color of the eyes or skin [id number] [employer]. [address] [place] [address], [place] [address]. All rights reserved. This information is not intended as a substitute for professional medical care. Always follow yourhealthcare professional's instructions. Additional Information VACCINATE! IT SAVES LIVES! Members of the community who have not yet received the COVID-19 vaccine and would like to receive it can visit one of [facility] vaccine clinics. There are many vaccine clinic locations within the [facility]. For locations and available times, please visit www.gettheshot.coronavirus.[place].gov/. It is important to note that some COVID mobile vaccine clinics are held outdoors and may be canceled in rainy or stormy conditions. To learn more about pediatric vaccinations (ages 5-11), we invite you to visit the [facility] webpage. [email or web address]/[email or web address] [email or web address] learn more about the COVID-19 vaccine, we invite you to visit the CDC website for a list of frequently asked questions. https://www.cdc.gov/coronavirus/2019-ncov/vaccines/faq.html [facility] Patient Portal Access Instructions: Stay connected with your healthcare team and access your personal medical information anytime with the [facility] Patient Portal. If you would like a full copy of your medical records please contact the [facility] Medical Records Department Monday through Monday between 8a.m. and 4:30p.m. Please follow the directions below to access the portal: 1.Access the email account you provided upon registration to the hospital.2.Look for an invitation email from [facility].3.Open the email and access the invitation link: Accept Invitation to [facility]4.Fill in the required brown to create your account. Sign into www.[employer] with your username and password that you created in the above steps to stay up to date. You can then view a summary of results, a summary of your visits, and the ability to download your summaries to your computer or send the information securely to a physician. Remember that your healthcare information is confidential, so carefully consider who you will allow to register on the [facility] Patient Portal for access to your information. You can also access the [facility] Patient Portal on the [employer] [address] kelsey. Simply click on Health Records under [employer] and then click on the [facility] logo. HOW TO SAFELY DISPOSE OF PRESCRIPTION MEDICATIONS Please use one of the following methods to safely dispose of your unused medications. 1.Use a drug disposal kit: the drug disposal pouch allows you to safely discard your old and unuseddrugs. Ask your nurse to give you one when you are discharged.2.Visit a local take-back location: Many local pharmacies and police departments have programs that collect old and unwanted prescriptiondrugs. Call your local pharmacy or go to http://bit.[employer]/8B8Ch3w to find one close to you.3.Make use of household items: Use cat litter or old coffee grounds to dispose medications if other options arenot available. Mix your drugs with these household products, seal them in an airtight container andthrow it into the garbage. Call [facility]: [phone] to be sure your drugs can be disposed of in this way. Some medicines may require a different approach.4.Never flush your medications down the toilet. IF YOU HAVE BEEN PRESCRIBED AN OPIOIDS FOR PAIN If you have been prescribed an opioid (such as hydrocodone, oxycodone or morphine), it is critical to understand the possible side effects and risks of opioid pain medications. Even when taken as directed, opioids can have several side effects including: Tolerance, meaning you might need to take more of a medication for the same pain relief. Nausea, vomiting and/or constipation. Sleepiness, dizziness, dry mouth, confusion, depression or itching. Physical dependence, meaning you have withdrawal symptoms when a medication is stopped ? this can develop within a few days. KNOW YOUR RESPONSIBILITIES It is important to know exactly how much and how often to take the opioid pain medications you are prescribed. Never take opioids in higher amounts or more often than prescribed. Do not combine opioids with alcohol or other drugs that cause drowsiness, such as benzodiazepines, also known as benzos,including diazepam and alprazolam, muscle relaxants or sleep aids. Never sell or share prescriptionopioids. This is illegal. Store opioids in a secure place and out of reach of others (including children, family, friends and visitors). The last page(s) of this document has been signed and retained as a CHART COPY Signatures Patient Education Materials Vomiting (Adult) Medication Leaflets ondansetron (oral) My discharge plan and instructions have been reviewed and explained to me and IGLEN ALLISON V understand my current condition and have read and understand these discharge instructions. I have received a written copy of the plan/instructions. If I have questions, I am aware that I should contact my doctor. Patient/Surgical Assistant Certified Signature: Date/Time: Relationship to Patient: Witness Name/Signature: Date/Time: [facility]08-03-2024 Note. MICRO - Microbiology PROCEDURE: Culture Wound Aerobic with Gram Stain [*1] SOURCE: Abscess BODY SITE: Abdomen COLLECTED DATE/TIME: 06/19/2024 16:27 EDT RECEIVED DATE/TIME: 06/19/2024 18:51 EDT START DATE/TIME: 06/19/2024 18:52 EDT FREE TEXT SOURCE: FINAL REPORTS Final Report [] Verified Date/Time/Personnel: 06/22/2024 12:07 EDT Few Normal skin lee ann present. Sensitivity testing not indicated. PRELIMINARY REPORTS Preliminary Report [] Verified Date/Time/Personnel: 06/20/2024 12:11 EDT No growth to date STAINS GS [] Verified Date/Time/Personnel: 06/19/2024 19:42 EDT Rare Epithelial cells 3+ Polymorphonuclear cells Rare Gram Positive Cocci Rare Gram Negative Rods Performing Locations *1: This test was performed at: [address], [facility] ([place])05-17-2024 History of Present illness Narrative* Link Matt APRN.[facility] - 05/17/2024 4:08 PM EDT Subjective HPI A nontoxic appearing female presents to urgent care with chief complaint of possible UTI. Duration of symptoms 4 days. Associated symptoms dysuria, frequency, and urgency. Patient has history of UTIsin past with similar signs and symptoms. Patient denies the use of any xxis-rxb-lvdahya medicationsor home remedies for symptom management. Patient states pain is a 3/10. Patient denies any fevers, flank pain, abdominal pain, nausea, vomiting, vaginal discharge, chance of STDs, chance of , or urological abnormalities. Currently breast-feeding. 6 months . Past medical history prescription medications allergies reviewed. BP 120/66 Pulse 78 Temp 36.7 C (98 F) Resp 18 Wt 107 kg (235 lb 14.3 oz) LMP (LMP Unknown) SpO2 97% BMI 41.79 kg/m .Patient presents with: Urinary Problem: Frequency and burning x4 days PAST MEDICAL HISTORY Diagnosis Date Headache NEGATIVE MEDICAL HISTORY PAST SURGICAL HISTORY Procedure Laterality Date PAST SURGICAL HISTORY OF 2020 [place] teeth extracted TONSILLECTOMY AND ADENOIDECTOMY HX ALLERGIES Sumatriptan MEDICATIONS vit no.124/iron/folic ( VITAMIN ORAL) Take by mouth. albuterol HFA (PROAIR HFA) 90 mcg/actuation inhaler Inhale 2 Puffs as instructed every 4 hours as needed. FAMILY HISTORY Problem Relation Age of Onset Cervical Cancer Sister Social History Tobacco Use Smoking status: Never Smokeless tobacco: Never Vaping Use Vaping Use: Never used Substance Use Topics Alcohol use: Never Drug use: Never Review of Systems Constitutional: Negative for chills, fever and malaise/fatigue. HENT: Negative for congestion, ear discharge, ear pain, sinus pain and sore throat. Eyes: Negative for blurred vision, pain, discharge and redness. Respiratory: Negative for cough, hemoptysis, sputum production, shortness of breath, wheezing and stridor. Cardiovascular: Negative for chest pain. Gastrointestinal: Negative for abdominal pain, diarrhea, nausea and vomiting. Genitourinary: Positive for dysuria, frequency and urgency. Negative for flank pain and hematuria. Musculoskeletal: Negative for myalgias. Skin: Negative for itching and rash. Neurological: Negative for dizziness and headaches. Objective Physical Exam Constitutional: General: She is not in acute distress. Appearance: She is not diaphoretic. HENT: Head: Normocephalic. Jaw: No trismus, tenderness, swelling or pain on movement. Mouth/Throat: Pharynx: Uvula midline. No pharyngeal swelling or uvula swelling. Eyes: Conjunctiva/sclera: Conjunctivae normal. Pupils: Pupils are equal, round, and reactive to light. Cardiovascular: Rate and Rhythm: Normal rate and regular rhythm. Heart sounds: Normal heart sounds. Pulmonary: Effort: Pulmonary effort is normal. No tachypnea, accessory muscle usage or respiratory distress. Breath sounds: Normal breath sounds. No stridor. No wheezing, rhonchi or rales. Abdominal: General: There is no distension. Palpations: Abdomen is soft. Tenderness: There is no abdominal tenderness. There is no right CVA tenderness, left CVA tenderness, guarding or rebound. Musculoskeletal: Cervical back: No edema or erythema. No pain with movement. Normal range of motion. Skin: General: Skin is warm and dry. Neurological: Mental Status: She is alert and oriented to person, place, and time. ASSESSMENT/PLAN: 1. Urinary frequency - ICD9: 788.41, ICD10: R35.0 (primary diagnosis) - UA DIP, URINE (POC) - URINE CULTURE 2. Dysuria - ICD9: 788.1, ICD10: R30.0 - EVANS/TRICHOMONAS NAAT - BACTERIAL VAGINOSIS NAAT - GONORRHEA/CHLAMYDIA NAAT No acute findings noted on urinalysis. Will not treat with antibiotics today for acute cystitis. Vaginal self swabs obtained. Treat accordingly and swab results. Patient was educated on supportive therapies. Patient will follow up with primary care provider as needed. Patient was instructed to immediately proceed to emergency room for any new, worsening, or symptoms lasting longer than anticipated. The patient's clinical presentation is otherwise unremarkable at this time. Based on exam and clinical finding, the patient is stable for discharge. Plan of care was discussed with patient. Patient verbalizes understanding and agrees to plan of care. This note was generated using [employer] software. It may contain errors in wording, punctuation, or spelling. Link Matt APRN.[facility] [employer]DER [facility]24 History of Present illness Narrative* Rae Vega RN - 04/01/2024 12:28 PM EDT PRIMARY CARE COORDINATION CHART REVIEW Provider Action/FYI ED chart review. No outreach necessary Patient identified for Care Coordination from: ED list-Notify LAST PCP office visit: Visit date not found NEXT OV: Visit date not found FUTURE APPOINTMENTS: Visit date not found Rae Vega RN [phone] documented in this encounterMadison [facility]05-11-2024 Discharge summary Author Juan Jose Salguero [facility] March 30, 2024 11:11am Note Date/Time March 30, 2024 7:43a m [facility] Medical Records Department [address] [place] [address] Emergency Department Summary 03/30/24 MR#: [id number] Acct: [id number] Name: GABRIELLE CARROLL Rep # :[id number] : 2000 23 From: Juan Jose Salguero MD PCP: Dr. Barry Reeves MD Status:REG ER Location: ED HPI History of Present Illness Chief Complaint: Chest Pain Narrative Narrative: 23-year-old female who denies significant past medical history presents with chest pain that awoke her from sleep approximately 1 hour ago. She relates history that 2 months ago she had similar chest pain but was more in the middle of her chest. This time, more deep under her left breast. She is slightly nauseated. She states last time they gave her naproxen which seemed to help with her pain. She took it this morning, but it did not seem to help. She denies any fevers but may feel chilled, no cough. No diaphoresis. She denies any leg swelling. She does not take any daily medications. Her pain may be pleuritic in nature but she describes it more as sharp and stabbing. Is mainly on the left side this time. She states pain is worse when she lays down. Additionally, she states she took her blood pressure and it was elevated at 140 systolic. [facility] Medical History Enlarged liver Home Medications prenat.vits,jessi,ruc-vrpt-dbkjb 1 tab PO DAILY 12/29/21 [History Last Taken Unknown] aspirin 81 mg tablet,delayed release 81 mg PO DAILY 03/26/23 [History Last Taken Unknown] cephalexin 500 mg capsule 500 mg PO BID #10 caps 03/26/23 [Rx Last Taken Unknown] folic acid 1 mg tablet 1 mg PO DAILY 03/26/23 [History Last Taken Unknown] metformin 500 mg tablet 500 mg PO DAILY 03/26/23 [History Last Taken Unknown] Allergy/AdvReac Type Severity Reaction Status Date / Time sumatriptan [From Imitrex] Allergy Rash Verified 01/11/24 08:54 Family History Grandmother Cancer Hypertension Surgical History Hx of section Hx of dilation and curettage Hx of tonsillectomy [place] teeth removed Social History household members: friend(s) Smoking Status: Never smoker alcohol intake: never substance use type: marijuana ROS ROS ED ROS Narrative Constitutional: No fever, no chills. HEENT: No sore throat. No neck pain. No loss of vision. No rhinorrhea. Cardiovascular: Left-sided chest pain. No palpitations. No pedal edema. Respiratory: No cough, no shortness of breath. Abdominal: No abdominal pain. Positive nausea. No vomiting. Genitourinary: No dysuria. No hematuria. Musculoskeletal: No myalgias. No arthralgias. Neurologic: No headaches. No dizziness. No lightheadedness. Skin: No rash. No change in color. Psychiatric: No depression. No anxiety. EXAM Physical Exam Narrative Exam Narrative: Afebrile. Vital signs noted. HEENT: Normocephalic. Atraumatic. PERRL, EOMI. Neck soft and supple. No pointtenderness or step off. Cardiovascular: Regular rate and rhythm. No murmurs, rubs, or gallops appreciated. Respiratory: No tachypnea. Lungs clear to auscultation bilaterally. Gastrointestinal: Abdomen soft, nontender, with normoactive bowel sounds. No rebound or guarding. Neurological: Awake. Alert. Nonfocal, nonlateralizing. Skin: No rash. Normal color. No pallor. Musculoskeletal: No pedal edema. Full range of motion extremities. Const Vital Signs: 03/30/24 07:26 03/30/24 07:46 03/30/24 08:25 Temperature 97.8 F Temperature Source Temporal Pulse Rate 72 65 Respiratory Rate 16 18 Blood Pressure 113/57 L 137/86 H Blood Pressure Mean 75 103 Pulse Ox 100 100 Oxygen Delivery Method Room Air Room Air Room Air 03/30/24 09:00 03/30/24 10:00 Temperature 97.8 F Temperature Source Temporal Pulse Rate 67 76 Respiratory Rate 18 18 Blood Pressure 167/105 H 137/56 H Blood Pressure Mean 125 83 Pulse Ox 96 97 Oxygen Delivery Method Room Air Room Air Heart Score History: Slightly/Non-Suspicious ECG: Normal Age: </= 45 years Risk Factors: No Risk Factors Score: 0 MDM MDM MDM Narrative Medical decision making narrative: In the differential diagnosis is acute coronary syndrome versus pulmonary embolism versus pneumothorax versus pneumonia. History and physical does not really support pneumonia or pneumothorax. Her blood pressure is normalized currently. She is not tachycardic and her pulse ox is 100% on room air. However, given the reported pleuritic nature on the left side, D-dimer will be obtained although she is essentially PERC negative. Comprehensive workup was pursued. EKG obtained and interpreted by myself independently as normal sinus rhythm at 66 bpm without ectopy or acute ST changes. No STEMI. Serial troponins will be obtained to rule out non-STEMI. Chest x-ray 1 view was obtained and interpreted by myself independently as no acute process, no pneumothorax, no pneumonia. I do not feel antibiotics are indicated. I reviewed the radiology report which confirms my independent interpretation. I reviewed her laboratory work and she has a leukocytosis of 14.3 which I think is nonspecific, hemoglobin normal at 13.1, platelet count 309. Review of her electrolyte panel shows potassium slightly low at 3.4 which will be replaced orally, chloride elevated at 108, normal BUN of 17 and creatinine 0.81. D-dimer is negative at 0.29. In review of her previous ED visit, she had a CTA 2 months ago that was negative. Her initial high-sensitivity troponin is less than 3 with a repeat being 3. This appears as her baseline when compared to prior labs. She had been given Toradol and upon repeat examination at approximately 11:05 AM, she is feeling improved. At this point in time, I feel she can be discharged safely home with follow-up. Return instructions to the emergency department were reviewed. Disposition is discharged home in stable condition. History & Record Review Discussion w/independent historian: Patient Additional record(s) reviewed:: Prior ED visit and Prior labs Lab Data Attestation: I reviewed the patient's lab results. Labs: Laboratory Results - last 24 hr 03/30/24 03/30/24 07:45 10:16 WBC 14.3 H RBC 4.43 Hgb 13.1 Hct 40.1 MCV 90.5 MCH 29.6 MCHC 32.7 RDW Std Deviation 43.8 RDW Coeff of Thao 13.3 Plt Count 309 MPV 11.6 Immature Gran % (Auto) 0.300 Neut % (Auto) 62.6 Lymph % (Auto) 30.7 [place] % (Auto) 5.4 Eos % (Auto) 0.7 Baso % (Auto) 0.3 Absolute Neuts (auto) 8.9 H Absolute Lymphs (auto) 4.39 Nucleated RBC % 0 D-Dimer Quant (PE/DVT) 0.29 Sodium 140 Potassium 3.4 L Chloride 108 H Carbon Dioxide 26.0 Anion Gap 6 BUN 17 Creatinine 0.81 Estim Creat Clear Calc 129.73 Est GFR (MDRD) Af Amer 114 Est GFR (MDRD) Non-Af 94 BUN/Creatinine Ratio 21.0 H Glucose 124 H Calcium 8.8 Troponin I High Sens < 3 L 3 Radiography Chest X-Ray - ED: 1 View and Read by ED Physician Diagnostic Testing: Clinical Impression(s) from Imaging Studies Chest X-Ray 03/30/24 07:37 IMPRESSION: Normal x-ray examination of the chest. Electronically Signed: Moe Norris MD at 8:17 EDT Reading Location ID and State: [facility] , Service support , Discharge Plan Triage Chief Complaint: Chest Pain ED Provider: Juan Jose Salguero Dx/Rx/DC Orders Clinical Impression: Pleuritic chest pain, Chest pain Instructions: ED Chest Pain, Uncertain Cause Prescriptions: No Action prenat.vits,jessi,dem-fcmy-dhvok Tablet 1 tab PO DAILY metformin 500 mg Tablet 500 mg PO DAILY aspirin [Aspir-81] 81 mg Tablet,Delayed Release (Dr/Ec) 81 mg PO DAILY folic acid 1 mg Tablet 1 mg PO DAILY cephalexin 500 mg capsule 500 mg PO BID Qty: 10 0RF Primary Care Provider: Barry Reeves Referrals: Barry Reeves MD [Primary Care Provider] - 3-5 Days if not improving Disposition Disposition: Home, Self Care What to do if you have Problems For any increased pain, shortness of breath, bleeding, nausea or vomiting, chestpain, or any unexpected problems, contact your Primary Care Provider. Call [facility] ([phone]) or report to the closest Emergency Room. Call 911 if necessary. 03/30/24 1111 <Electronically signed by Juan Jose Salguero MD> Cosigner Signature (if applicable): CC: Dr. Barry Reeves MD ~ Signed [facility] Work Phone: [phone] 731-992703-09-2024 History of Present illness Narrative* Barry Reeves MD - 01/27/2024 6:17 PM EST This note was created using Houser[employer]. Subjective aGbrielle Carroll is a 23 year old female.Patient is in office for a follow up to recent ED visit. Patient was evaluated and treated at [facility] for chest pains. Patient states that testing was completed and all came back WNL. Patient is currently 9 weeks . Patient then went to [facility] and was informed N-Terminal proBNP 411 Patient was advised to follow up with PCP. Chest pain has resolved. Review of Systems Constitutional: Negative. HENT: Negative. Eyes: Negative. Respiratory: Negative. Cardiovascular: Negative. Gastrointestinal: Negative. Endocrine: Negative. Genitourinary: Negative. Musculoskeletal: Negative. Skin: Negative. Allergic/Immunologic: Negative. Neurological: Negative. Hematological: Negative. Psychiatric/Behavioral: Negative. Objective BP 128/72 (BP Site: Left Arm, BP Position: Sitting, BP Cuff Size: Regular Adult) Pulse 72 Temp 36.4 C (97.6 F) (Temporal) Resp 18 Ht 160 cm (5' 3) Wt 107.5 kg (237 lb) LMP (LMP Unknown) SpO2 100% Yes BMI 41.98 kg/m Physical Exam Vitals reviewed. Constitutional: Appearance: Normal appearance. HENT: Head: Normocephalic and atraumatic. Nose: Nose normal. Eyes: Extraocular Movements: Extraocular movements intact. Pupils: Pupils are equal, round, and reactive to light. Cardiovascular: Rate and Rhythm: Normal rate and regular rhythm. Pulmonary: Effort: Pulmonary effort is normal. Breath sounds: Normal breath sounds. Abdominal: General: Bowel sounds are normal. Palpations: Abdomen is soft. Musculoskeletal: General: Normal range of motion. Cervical back: Normal range of motion and neck supple. Skin: General: Skin is warm and dry. Capillary Refill: Capillary refill takes less than 2 seconds. Neurological: General: No focal deficit present. Mental Status: She is alert and oriented to person, place, and time. Mental status is at baseline. Psychiatric: Mood and Affect: Mood normal. Behavior: Behavior normal. Assessment and Plan Encounter Diagnosis ICD-10-CM 1. Atypical chest pain R07.89 2. Anxiety F41.9 Pain resolved. Patient with history of anxiety. Workup negative in emergency room for coronary cause. Barry Reeves MD * Rubi Middleton LPN - 01/15/2024 8:12 AM EST Patient is in office for a follow up to recent ED visit. Patient was evaluated and treated at [facility] for chest pains. Patient states that testing was completed and all came back WNL. Patient is currently 9 weeks . Patient then went to [facility] and was informed N-Terminal proBNP 411 Patient was advised to follow up with PCP. No refills needed Rubi Middleton LPN January 15, 2024 8:20 AM [facility] Discharge instructions Patient Education 01/11/2024 22:34:35 Chest Pain, Uncertain Cause Uncertain Causes of Chest Pain Chest pain can happen for a number of reasons. Sometimes the cause can't be determined. If your condition does not seem serious, and your pain does not appear to be coming from your heart, your healthcare provider may recommend watching it closely. Sometimes the signs of a serious problem take moretime to appear. Many problems not related to your heart can cause chest pain. These include: Musculoskeletal. Costochondritis is an inflammation of the tissues around the ribs that can occur from trauma or overuse injuries, or a strain of the muscles of the chest wall Respiratory. Pneumonia, collapsed lung (pneumothorax), or inflammation of the lining of the chest and lungs (pleurisy) Gastrointestinal. Esophageal reflux, heartburn, ulcers, or gallbladder disease Anxiety and panic disorders Nerve compression and inflammation Rare miscellaneous problems such as aortic aneurysm (a swelling of the large artery coming out of the heart) or pulmonary embolism (a blood clot in the lungs) Home care After your visit, follow these recommendations: Rest today and avoid strenuous activity. Take any prescribed medicine as directed. Be aware of any recurrent chest pain and notice any changes Follow-up care Follow up with your healthcare provider if you do not start to feel better within 24 hours, or as advised. Call 911 Call 911 if any of these occur: A change in the type of pain: if it feels different, becomes more severe, lasts longer, or begins to spread into your shoulder, arm, neck, jaw or back Shortness of breath or increased pain with breathing Weakness, dizziness, or fainting Rapid heart beat Crushing sensation in your chest When to seek medical advice Call your healthcare provider right away if any of the following occur: Cough with dark colored sputum (phlegm) or blood Fever of 100.4 F (38 C) or higher, or as directed by your healthcare provider Swelling, pain or redness in one leg [phone] [employer]. [address] [place] [address]. All rights reserved. This information is not intended as a substitute for professional medical care. Always follow yourhealthcare professional's instructions. Follow Up Care 01/11/2024 20:57:06 With:BARRY REEVES MD Address: [address] [place] [phone]- [phone] When:2-4 days [facility] 02-22-2024 Note Discharge Instructions Thank you for allowing [facility] to assist you with your healthcare needs. The following is importantdischarge information regarding your hospital visit. Diagnosis from Today's Visit Chest pain What to Do Next Instructions from Your Care Team No qualifying data available. Post Acute Orders No qualifying data available. You Need to Schedule the Following Appointments Follow Up with BARRY REEVES MD When Within 2-4 days Where: [facility] [place] [id number]- [phone] Allergies Imitrex (Rash) Medications Please ask your primary doctor or pharmacist before taking any other medication not listed, including over the counter drugs, herbal medications, vitamins and or supplements as they may interact withyour home medications. What How Much When Instructions Last Dose New naproxen (naproxen 500 mg oral tablet) 1 tab(s) by mouth Two (2) times a day as needed for as needed for pain Printed Prescription Unchanged citric acid/ lactic ac/ potass bitart top (Phexxi vaginal gel) 1 Applicatorful Vaginal As Directed as needed for Other (see order comments) before or up to 1 hour before intercourse before or up to 1 hour before intercourse Unchanged docusate (Dulcolax Stool Softener) 100 Milligram by mouth Two (2) times a day as needed for as needed for constipation Unchanged ferrous sulfate (IRON (ferrous sulfate 325 mg) 65 mg oral tablet) 1 tab(s) by mouth Once a day Take with food. Unchanged hydrOXYzine (Vistaril 25 mg oral capsule) 1 cap by mouth Four (4) times a day as needed for for anxiety Unchanged multivitamin, ( Multivitamins with Vitamin B Complex, Vitamin C, Minerals and L-Methylfolate oral capsule) 1 cap by mouth Every day Please take this list to your next doctor s visit. Bring all medications you take, including over the counter medications, herbals and other supplements with you to your doctor s visit. Patients and families are reminded to discard old lists and to update any records with all medication providers or retail pharmacies. Medication Leaflets naproxen (na PROX en) Aleve, Aleve Back and Muscle Pain, Aleve Easy Open Arthritis, Aleve Liquid Gels, Anaprox-DS, EC-Naprosyn, Naprelan, Naprosyn What is the most important information I should know about naproxen? Naproxen can increase your risk of fatal heart attack or stroke. Do not use this medicine just before or after heart bypass surgery (coronary artery bypass graft, or CABG). Naproxen may also cause stomach or intestinal bleeding, which can be fatal. What is naproxen? Naproxen is a nonsteroidal anti-inflammatory drug (NSAID). Naproxen is used to treat pain or inflammation caused by conditions such as arthritis, ankylosing spondylitis, tendinitis, bursitis, gout, or menstrual cramps. The delayed-release or extended-release tablets are slower-acting forms of naproxen that are used only for treating chronic conditions such as arthritis or ankylosing spondylitis. These forms of naproxen will not work fast enough to treat acute pain. Naproxen may also be used for purposes not listed in this medication guide. What should I discuss with my healthcare provider before taking naproxen? Naproxen can increase your risk of fatal heart attack or stroke, even if you don't have any risk factors. Do not use this medicine just before or after heart bypass surgery (coronary artery bypass graft, or CABG). Naproxen may also cause stomach or intestinal bleeding, which can be fatal. These conditions can occur without warning while you are using naproxen, especially in older adults. You should not use naproxen if you are allergic to it, or if you have ever had an asthma attack or severe allergic reaction after taking aspirin or an NSAID. Ask a doctor before giving naproxen to a child younger than 12 years old. Ask a doctor or pharmacist if this medicine is safe to use if you have: heart disease, high blood pressure, high cholesterol, diabetes, or if you smoke; a heart attack, stroke, or blood clot; stomach ulcers or bleeding; asthma; liver or kidney disease; fluid retention; or if you take aspirin to prevent heart attack or stroke. If you are , you should not take naproxen unless your doctor tells you to. Taking an NSAID during the last 20 weeks of can cause serious heart or kidney problems in the unborn baby and possible complications with your . It may not be safe to breastfeed while using this medicine. Ask your doctor about any risk. How should I take naproxen? Use exactly as directed on the label, or as prescribed by your doctor. Use the lowest dose that is effective in treating your condition. Shake the oral suspension (liquid) before you measure a dose. Measure a dose with the supplied measuring device (not a kitchen spoon). Take this medicine with food or milk if it upsets your stomach. Always follow directions on the medicine label about giving this medicine to a child. Naproxen doses are based on weight in children. Your child's dose needs may change if the child gains or loses weight. If you use naproxen long-term, you may need frequent medical tests. This medicine can affect the results of certain medical tests. Tell any doctor who treats you that you are using naproxen. Store at room temperature away from moisture, heat, and light. Keep the bottle tightly closed when not in use. What happens if I miss a dose? Since naproxen is used when needed, you may not be on a dosing schedule. Skip any missed dose if it's almost time for your next dose. Do not use two doses at one time. What happens if I overdose? Seek emergency medical attention or call the Poison Help line at . What should I avoid while taking naproxen? Avoid drinking alcohol. It may increase your risk of stomach bleeding. Avoid taking aspirin or other NSAIDs unless your doctor tells you to. Ask a doctor or pharmacist before using other medicines for pain, fever, swelling, or cold/flu symptoms. They may contain ingredients similar to naproxen (such as aspirin, ibuprofen, or ketoprofen). Ask your doctor before using an antacid, and use only the type your doctor recommends. Some antacids can make it harder for your body to absorb naproxen. What are the possible side effects of naproxen? Get emergency medical help if you have signs of an allergic reaction (runny or stuffy nose, wheezing or trouble breathing, hives, swelling in your face or throat) or a severe skin reaction (fever, sore throat, burning eyes, skin pain, red or purple skin rash with blistering and peeling). Stop using naproxen and seek medical treatment if you have a serious drug reaction that can affect many parts of your body. Symptoms may include skin rash, fever, swollen glands, muscle aches, severeweakness, unusual bruising, or yellowing of your skin or eyes. Get emergency medical help if you have signs of a heart attack or stroke: chest pain spreading to your jaw or shoulder, sudden numbness or weakness on one side of the body, slurred speech, leg swelling, feeling short of breath. Stop using naproxen and call your doctor at once if you have: shortness of breath (even with mild exertion); swelling or rapid weight gain; the first sign of any skin rash or blister, no matter how mild; signs of stomach bleeding--bloody or tarry stools, coughing up blood or vomit that looks like coffee grounds; liver problems--nausea, upper stomach pain, loss of appetite, dark urine, ghulam- colored stools, jaundice (yellowing of the skin or eyes); kidney problems--little or no urination, painful urination, swelling in your feet or ankles; or low red blood cells (anemia)--pale skin, unusual tiredness, feeling light-headed or short of breath, cold hands and feet. Common side effects may include: headache; indigestion, heartburn, stomach pain; or flu symptoms; This is not a complete list of side effects and others may occur. Call your doctor for medical advice about side effects. You may report side effects to FDA at 2-422-WXH-9017. What other drugs will affect naproxen? Ask your doctor before using naproxen if you take an antidepressant. Taking certain antidepressantswith an NSAID may cause you to bruise or bleed easily. Ask a doctor or pharmacist before using naproxen with any other medications, especially: other NSAIDs or salicylates (diflunisal, salsalate); antacids and sucralfate; cholestyramine; cyclosporine; digoxin; lithium; methotrexate; pemetrexed; probenecid; warfarin (Coumadin, Jantoven) or similar blood thinners; a diuretic or 'water pill'; or heart or blood pressure medication. This list is not complete. Other drugs may affect naproxen, including prescription and rgxk-mbw-yswbhdi medicines, vitamins, and herbal products. Not all possible drug interactions are listed here. Where can I get more information? Your pharmacist can provide more information about naproxen. Remember, keep this and all other medicines out of the reach of children, never share your medicines with others, and use this medication only for the indication prescribed. Every effort has been made to ensure that the information provided by [employer] ('[employer]') is accurate, up-to-date, and complete, but no guarantee is made to that effect. Drug information contained herein may be time sensitive. [employer] information has been compiled for use by healthcare practitioners and consumers in the [place] and therefore [employer] does not warrant that uses outside of the [place] are appropriate, unless specifically indicated otherwise. [employer] drug information does not endorse drugs, diagnose patients or recommend therapy. [employer] drug information isan informational resource designed to assist licensed healthcare practitioners in caring for their p atients and/or to serve consumers viewing this service as a supplement to, and not a substitute for, the expertise, skill, knowledge and judgment of healthcare practitioners. The absence of a warningfor a given drug or drug combination in no way should be construed to indicate that the drug or drug combination is safe, effective or appropriate for any given patient. [facility] does not assume any responsibility for any aspect of healthcare administered with the aid of information [facility] provides. The information contained herein is not intended to cover all possible uses, directions, precautions, warnings, drug interactions, allergic reactions, or adverse effects. If you have questions about the drugs you are taking, check with your doctor, nurse or pharmacist. Copyright 9941-3919 [employer] Version: 22.01. Revision Date: 06/22/2023. Education Materials Uncertain Causes of Chest Pain Chest pain can happen for a number of reasons. Sometimes the cause can't be determined. If your condition does not seem serious, and your pain does not appear to be coming from your heart, your healthcare provider may recommend watching it closely. Sometimes the signs of a serious problem take moretime to appear. Many problems not related to your heart can cause chest pain. These include: Musculoskeletal. Costochondritis is an inflammation of the tissues around the ribs that can occur from trauma or overuse injuries, or a strain of the muscles of the chest wall Respiratory. Pneumonia, collapsed lung (pneumothorax), or inflammation of the lining of the chest and lungs (pleurisy) Gastrointestinal. Esophageal reflux, heartburn, ulcers, or gallbladder disease Anxiety and panic disorders Nerve compression and inflammation Rare miscellaneous problems such as aortic aneurysm (a swelling of the large artery coming out of the heart) or pulmonary embolism (a blood clot in the lungs) Home care After your visit, follow these recommendations: Rest today and avoid strenuous activity. Take any prescribed medicine as directed. Be aware of any recurrent chest pain and notice any changes Follow-up care Follow up with your healthcare provider if you do not start to feel better within 24 hours, or as advised. Call 911 Call 911 if any of these occur: A change in the type of pain: if it feels different, becomes more severe, lasts longer, or begins to spread into your shoulder, arm, neck, jaw or back Shortness of breath or increased pain with breathing Weakness, dizziness, or fainting Rapid heart beat Crushing sensation in your chest When to seek medical advice Call your healthcare provider right away if any of the following occur: Cough with dark colored sputum (phlegm) or blood Fever of 100.4 F (38 C) or higher, or as directed by your healthcare provider Swelling, pain or redness in one leg [phone] [employer]. [address] [place] [address]. All rights reserved. This information is not intended as a substitute for professional medical care. Always follow yourhealthcare professional's instructions. Additional Information VACCINATE! IT SAVES LIVES! Members of the community who have not yet received the COVID-19 vaccine and would like to receive it can visit one of [facility] vaccine clinics. There are many vaccine clinic locations within the [facility]. For locations and available times, please visit www.gettheshot.coronavirus.[place].gov/. It is important to note that some COVID mobile vaccine clinics are held outdoors and may be canceled in rainy or stormy conditions. To learn more about pediatric vaccinations (ages 5-11), we invite you to visit the [facility] webpage. https://www.[facility].org/pages/9874-Jdifv-Ioqfsaqjmuv-Qglakejttp-Ucdyk-Ydz stions.htmlTo learn more about the COVID-19 vaccine, we invite you to visit the CDC website for a list of frequently asked questions. https://www.cdc.gov/coronavirus/2019-ncov/vaccines/faq.html [facility] Patient Portal Access Instructions: Stay connected with your healthcare team and access your personal medical information anytime with the [facility] Patient Portal. If you would like a full copy of your medical records please contact the [facility] Medical Records Department Monday through Monday between 8a.m. and 4:30p.m. Please follow the directions below to access the portal: 1.Access the email account you provided upon registration to the [facility].2.Look for an invitation email from [facility].3.Open the email and access the invitation link: Accept Invitation to [facility].Fill in the required brown to create your account. Sign into www.[employer] with your username and password that you created in the above steps to stay up to date. You can then view a summary of results, a summary of your visits, and the ability to download your summaries to your computer or send the information securely to a physician. Remember that your healthcare information is confidential, so carefully consider who you will allow to register on the [facility] Patient Portal for access to your information. You can also access the [facility] Patient Portal on the [employer] [address] kelsey. Simply click on Health Records under [employer] and then click on the [employer] logo. HOW TO SAFELY DISPOSE OF PRESCRIPTION MEDICATIONS Please use one of the following methods to safely dispose of your unused medications. 1.Use a drug disposal kit: the drug disposal pouch allows you to safely discard your old and unuseddrugs. Ask your nurse to give you one when you are discharged.2.Visit a local take-back location: Many local pharmacies and police departments have programs that collect old and unwanted prescriptiondrugs. Call your local pharmacy or go to http://Sprig.[employer]/5X2Cx7c to find one close to you.3.Make use of household items: Use cat litter or old coffee grounds to dispose medications if other options arenot available. Mix your drugs with these household products, seal them in an airtight container andthrow it into the garbage. Call [facility] [facility]: [phone] to be sure your drugs can be disposed of in this way. Some medicines may require a different approach.4.Never flush your medications down the toilet. IF YOU HAVE BEEN PRESCRIBED AN OPIOIDS FOR PAIN If you have been prescribed an opioid (such as hydrocodone, oxycodone or morphine), it is critical to understand the possible side effects and risks of opioid pain medications. Even when taken as directed, opioids can have several side effects including: Tolerance, meaning you might need to take more of a medication for the same pain relief. Nausea, vomiting and/or constipation. Sleepiness, dizziness, dry mouth, confusion, depression or itching. Physical dependence, meaning you have withdrawal symptoms when a medication is stopped ? this can develop within a few days. KNOW YOUR RESPONSIBILITIES It is important to know exactly how much and how often to take the opioid pain medications you are prescribed. Never take opioids in higher amounts or more often than prescribed. Do not combine opioids with alcohol or other drugs that cause drowsiness, such as benzodiazepines, also known as benzos,including diazepam and alprazolam, muscle relaxants or sleep aids. Never sell or share prescriptionopioids. This is illegal. Store opioids in a secure place and out of reach of others (including children, family, friends and visitors). The last page(s) of this document has been signed and retained as a CHART COPY Signatures Patient Education Materials Chest Pain, Uncertain Cause Medication Leaflets naproxen My discharge plan and instructions have been reviewed and explained to me and I,GABRIELLE CARROLL V understand my current condition and have read and understand these discharge instructions. I have received a written copy of the plan/instructions. If I have questions, I am aware that I should contact my doctor. 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 HISTORY: ORDERING SYSTEM PROVIDED HISTORY: Reason for Exam: Chest Pain FINDINGS: Suboptimal exam due to patient body habitus and low lung volumes. Low lung volumes. No significant pleural fluid. No radiographic pneumothorax. No definite focal consolidation. Osseous structures grossly unremarkable. IMPRESSION: Suboptimal exam due to patient body habitus. No definite acute radiographic findings. Interpreted by: Marcos Gonzalez Preliminary Report By: Marcos Gonzalez Electronically signed By Marcos Gonzalez Dictated Date: 01/11/2024 9:40:40 PM Prelim Date: 01/11/2024 9:41:23 PM Sign Date: 01/11/2024 9:41:23 PM [facility] Sinus rhythm Electronic Signature: YA CARROLL MD 01/11/2024 22:32:12[facility] 12-24-[facility]23 Evaluation + Plan noteExtracted from: Title:History and Physical Author:MARYAM CARROLL MD Date:11/12/23 38 weeks gestation of pregna ncy PROM nitrazine + Anemia in on oral iron, continue pp Breech presentation to OR for PCS Gestational diabetes mellitus, class A1 6 week 2 hour glucola needed Obesity in 3 g ancef Oligohydramnios last ALIYA up to 11 cm PROM (premature rupture of membranes) Rh negative, antepartum rhogam pp as indicated Short cervix during in third trimester on PG in first trimester Orders: calcium carbonate, Start: 11/12/23 8:54:00 EST, Dose = 1,000 mg, = 2 tab(s), Chewed, qDay, PRN, Dyspepsia, 0, 11/12/23 8:54:00 EST carboprost, Start: 11/12/23 6:08:00 EST, Dose = 250 mcg, = 1 mL, Intramuscular, Once, PRN, Other (see order comments), 11/12/23 6:08:00 EST ceFAZolin, Start: 11/12/23 8:39:00 EST, Dose= 3 gram(s), IV Piggyback, PREOP pharm, Routine, Rate: 200 mL/hr, Infuse over: 30 minute(s), 100 mL, for weight greater than 120 kg, 11/12/23 8:39:00 EST citric acid-sodium citrate, Start: 11/12/23 6:08:00 EST, Dose = 30 mL, Soln, Oral, AsDirected, PRN, Gastric Upset, 11/12/23 6:08:00 EST ferrous sulfate, Start: 11/12/23 12:00:00 EST, Dose = 325 mg, = 1 tab(s), Oral, qDay, 11/12/23 8:54:00 EST hydrOXYzine, Start: 11/12/23 8:54:00 EST, Dose = 25 mg, = 1 cap(s), Oral, QID, PRN, Anxiety, 11/12/23 8:54:00 EST Lactated Ringers Infusion, Start: 11/12/23 6:08:00 EST, Dose = 500 mL, Soln, IV Bolus, AsDirected, PRN, Other (see order comments), Rate: 500 mL/hr, hour(s), 11/12/23 6:08:00 EST Lactated Ringers Infusion 1,000 mL, Start: 11/12/23 6:08:00 EST, Rate: 125 mL/hr, 11/12/23 6:08:00 EST lidocaine, Start: 11/12/23 6:08:00 EST, Dose = 20 mg, = 2 mL, Perineum, AsDirected, PRN, to perineal sutures, 1 dose(s), Stop: Limited # of times, 11/12/23 6:08:00 EST methylergonovine, Start: 11/12/23 6:08:00 EST, Dose = 0.2 mg, = 1 mL, Intramuscular, Once, PRN, Other (see order comments), 11/12/23 6:08:00 EST miSOPROStol, Start: 11/12/23 6:08:00 EST, Dose = 1,000 mcg, = 5 tab(s), Rectal, Once, PRN, Other (see order comments), 0, 11/12/23 6:08:00 EST ondansetron, Start: 11/12/23 6:08:00 EST, Dose = 4 mg, = 2 mL, IV Push, q4h, PRN, Nausea, 11/12/23 6:08:00 EST oxytocin, Start: 11/12/23 6:08:00 EST, Dose = 20 unit(s), = 2 mL, Intramuscular, Once, PRN, Other (see order comments), 11/12/23 6:08:00 EST oxytocin 20 unit(s) + LR Premix Diluent 1,000 mL, Start: 11/12/23 6:08:00 EST, Rate: 999 mL/hr, 11/12/23 6:08:00 EST terbutaline, Start: 11/12/23 6:08:00 EST, Dose = 0.25 mg, = 0.25 mL, Subcutaneous, AsDirected, PRN, Other (see order comments), 11/12/23 6:08:00 EST tranexamic acid, Start: 11/12/23 6:08:00 EST, Dose = 1 gram(s), = 100 mL, IV Piggyback, AsDirected, PRN, Other (see order comments), Rate: 300 mL/hr, Infuse over: 20 minute(s), 0, 11/12/23 6:08:00 EST Abdominal Prep Admit to Inpatient Ambulate Code Status Communication Order (scheduled) Consult to Anesthesia Consult to Anesthesia Epidural Anesthesia Monitoring Incentive Spirometer Intake and Output IV Catheter Insertion/Care NPO NPO Oxygen Administration (LDRP) Prn Adapter Rapid Plasma Reagin Test Sequential Compression Device Application Sign Consent Skin Prep/Scrub Straight Cath Type and Screen (AO) Urinary Catheter Insertion/Care Urinary Catheter Insertion/Care Vital Signs Vital Signs Call Parameters Future Appointments Appointment Date:11/14/2023 10:00:00 AM Scheduled Provider: Location:[facility] Appointment Type: OB W/Biophysical Profile Appointment Date:11/17/2023 10:00:00 AM Scheduled Provider: Location:[facility] Appointment Type: OB W/Biophysical Profile Appointment Date:11/21/2023 10:00:00 AM Scheduled Provider: Location:[facility] Appointment Type: OB W/Biophysical Profile Appointment Date:11/30/2023 11:15:00 AM Scheduled Provider:ETHEL MARTE MD Location:[facility] Appointment Type:[facility] 12-24-2023 Hospital Discharge instructions Patient Education 11/12/2023 09:02:15 7- Section ( Care) (05/2017) (CUSTOM) Section ( Care) These discharge instructions provide you with general information on section (caesarean, cesarian, caesarian) and caring for yourself after you leave the hospital. Your caregiver may also give you specific instructions. Please read these instructions and refer to them in the next few weeks. If you have any problems after discharge, please call your doctor. If you are unable to reach your doctor, you should seek helpat the nearest Emergency Department. ACTIVITY Rest as much as possible the first two weeks at home. When possible, have someone help you with your household activities for 2 to 3 weeks. Limit your housework and social activity. Increase your activity gradually as your strength returns. Do not climb stairs more than two or three times a day. Do not lift anything heavier than 10 pounds. Follow your doctor's instructions about driving a car. Limit wearing support panties or control-top hose, since relying on your own muscles helps strengthen them. Ask your doctor about exercises. NUTRITION You may return to your usual diet. Drink 6 to 8 glasses of fluid a day. Eat a well-balanced diet. Include portions of food from the meat/protein, milk, fruit, vegetable and bread groups. Keep taking your or multivitamins. ELIMINATION You should return to your usual bowel function. If constipation is a problem, you may take a mild laxative such as Milk of Magnesia with your caregiver s permission. Gradually add fruit, vegetables and bran to your diet. Make sure to increase your fluids. HYGIENE You may shower, wash your hair and take tub baths unless your doctor tells you otherwise. Continue maddi-care until your vaginal bleeding and discharge stops. Do not douche or use tampons until your caregiver says it is OK. FEVER If you feel feverish or have shaking chills, take your temperature. If your temperature is 101 F (38.3 C), or is 100.4 F (38 C) two times in a four hour period, call your doctor. The fever may indicate infection. If you call early, infection can be treated with medicines that kill germs (antibiotics). Hospitalization may be avoided. PAIN CONTROL You may still have mild discomfort. Only take eziv-lcd-qoihhya or prescription medicine as directedby your caregiver. Do not take aspirin unless instructed by your physician; it can cause bleeding. If the pain is not relieved by your medicine or becomes worse, call your caregiver. INCISION CARE Clean your cut (incision) gently with soap and water. If your caregiver says it is okay, leave the incision without a dressing unless it is draining or irritated. If you have small adhesive strips across the incision and they do not fall off within 7 days, carefully peel them off. Check the incision daily for increased redness, drainage, swelling or separation of skin. Call your caregiver if any of these happen. VAGINAL CARE You may have a vaginal discharge or bleeding for up to 6 weeks. If the vaginal discharge becomes bright red, bad smelling, heavy in amount, has blood clots or if you have burning or frequency when urinating, call your caregiver. SEXUAL INTERCOURSE No sexual intercourse until seen by your physician. You can become before you have a period. If you decide to have sexual intercourse, you should use control if you do not want to become right away. HEALTH PRACTICES It is still important to have a yearly pelvic exam. Continue monthly self-breast exams and yearly physical exams with a Pap test. BREAST CARE If you are not and your breasts become tender, hard or leak milk, you may wear a firmfitting bra and apply ice to the breasts. If you are , wear a good support bra. Call your caregiver if you have breast pain, flu-like symptoms, fever or hardness and reddening of your breasts. BLUES You may commonly have a period of low spirits or blues. Discuss your feelings with your partner, family and friends. This may be caused by the changing hormone levels in your body. You may want to contact your caregiver if this is worrisome. SEEK MEDICAL CARE IF: You develop a temperature greater than 100.4 degrees Fahrenheit. There is swelling, redness or increasing pain in the wound area. Pus is coming from the wound. You notice a bad smell from the wound or surgical dressing. You have pain, redness and swelling from the intravenous site. The wound is breaking open (the edges are not staying together). You feel dizzy or feel like fainting. You develop pain or bleeding when you urinate. You develop diarrhea. You develop nausea and vomiting. You develop abnormal vaginal discharge. You develop a rash. You have any type of abnormal reaction or develop an allergy to your medication. You need stronger pain medication for your pain. SEEK IMMEDIATE MEDICAL CARE: You develop abdominal pain. You develop chest pain. You develop shortness of breath. You pass out. You develop pain, swelling or redness of your leg. You develop heavy vaginal bleeding with or without blood clots. Document Released: 07/29/2003 Document Re-Released: 09/03/2010 [employer] Patient Information 2011 Rebls. 11/12/2023 09:02:14 7b- Depression and Blues (08/2020) (CUSTOM) Rambo Depression and Blues All mothers are at risk of developing depression or the blues. These mood changes can occur right after giving , or they may occur many months after giving . blues or depression can be mild or severe. Additionally, depression can goaway rather quickly, or it can be a long-term condition. CAUSES Raised hormone levels and the rapid drop in those levels are thought to be a main cause of depression and blues. A number of hormones change during and after . Estrogenand progesterone usually decrease right after delivery. The levels of thyroid hormone and various cortisol steroids also rapidly drop. Other factors that play a role in these mood changes include major life events and genetics. RISK FACTORS If you have any of the following risks for blues or depression, know what symptoms to watch out for during the period. Risk factors that may increase the likelihood of getting blues or depression include: Having a personal or family history of depression. Having depression while being . Having premenstrual mood issues or mood issues related to oral contraceptives. Having a lot of life stress. Having marital conflict. Lacking a social support network. Having health problems, such as diabetes. SIGNS AND SYMPTOMS Symptoms of blues include: Brief changes in mood, such as going from extreme happiness to sadness. Decreased concentration. Difficulty sleeping. Crying spells, tearfulness. Irritability. Anxiety. Symptoms of depression typically begin within the first month after giving . These symptoms include: Difficulty sleeping or excessive sleepiness. Marked weight loss. Agitation. Feelings of worthlessness. Lack of interest in activity or food. psychosis is a very serious condition and can be dangerous. Fortunately, it is rare. Displaying any of the following symptoms is cause for immediate medical attention. Symptoms of psychosis include: Hallucinations and delusions. Bizarre or disorganized behavior. Confusion or disorientation. DIAGNOSIS A diagnosis is made by an evaluation of your symptoms. There are no medical or lab tests that lead to a diagnosis, but there are various questionnaires that a health care provider may use to identifythose with blues, depression, or psychosis. Often, a screening tool called the [place] Depression Scale is used to diagnose depression in the period. TREATMENT blues usually goes away on its own in 1 2 weeks. Social support is often all that is needed. You will be encouraged to get adequate sleep and rest. Occasionally, you may be given medicinesto help you sleep. depression requires treatment because it can last several months or longer if it is not treated. Treatment may include individual or group therapy, medicine, or both to address any social,physiological, and psychological factors that may play a role in the depression. Regular exercise, a healthy diet, rest, and social support may also be strongly recommended. psychosis is more serious and needs treatment right away. Hospitalization is often needed. HOME CARE INSTRUCTIONS Get as much rest as you can. Exercise regularly. Some women find yoga and walking to be beneficial. Eat a balanced and nourishing diet. Do little things that you enjoy. Have a cup of tea, take a bubble bath, read your favorite magazine, or listen to your favorite music. Avoid alcohol. Ask for help with heel top lift splitter, cooking, grocery shopping, or running errands as needed. Do nottry to do everything. Talk to people close to you about how you are feeling. Get support from your partner, family members, and friends. Try to stay positive in how you think. Think about the things you are grateful for. Do not spend a lot of time alone. Only take [id number]-[id number] or prescription medicine as directed by your health care provider. Keep all your appointments. Let your health care provider know if you have any concerns. SEEK MEDICAL CARE IF: You are having a reaction to or problems with your medicine. SEEK IMMEDIATE MEDICAL CARE IF: You have suicidal feelings. You think you may harm yourself or someone else. MAKE SURE YOU: Understand these instructions. Will watch your condition. Will get help right away if you are not doing well or get worse. Resource: [facility] Patient Information 2015 [employer] [facility]. This information is not intended to replace advicegiven to you by your health care provider. Make sure you discuss any questions you have with your health care provider. 11/12/2023 09:02:09 benefits both mom and baby It contains both antibodies that help protect your baby against viruses and bacteria that you have been exposed to or been vaccinated against and nutrition for your baby. This is especially importantin the first 6 months when your baby is unable to receive most vaccinations as their immune system is immature. Even for the first two weeks of babies like helps babies get this important antibody rich breast milk called colostrum. Breast milk composition changes according to babys needs. Babies who are exclusively breastfed for the first 6 months of life have: 50% less ear infections 70% less risk of diarrheal illnesses 70% less risk of hospitalization with serious respiratory illness 60% reduction in gut damage seen in infants called necrotizing enterocolitis 50% less risk of SIDS ie, sudden infant syndrome 30% reduced risk of allergies, eczema 50% reduction of celiac disease 30% reduction of IBS 30% reduced risk of type I diabetes 40% reduced risk of type II diabetes 20% risk reduction of childhood leukemia 30% risk reduction of childhood obesity Breastfed babies have higher intelligence scores and are less likely to develop behavioral problemsas the grow. The [place] [employer] and World Health Organization recommend exclusively the first 12-24 months before transitioning to alternative milk. benefits mom too. helps with weight loss and getting back to pre- weight. helps with blood loss after delivery. depression affects 15% of mothers, mothers tend to rob better with their babies and are less likely to be affected by pp depression. also decreases your future risk of breast and ovarian cancer by about 30%. It also decreases the risk of type II diabetes Some women may not ovulate or menstruate while , especially if you breastfeed every 3 to 4 hours. This is a natural form of birthcontrol for some women. is cheap! The average cost of formula for one year is about $2,000. Who cant breastfeed? Mothers with HIV, active tuberculosis, HTLV, herpes outbreaks on the breast. Mothers suffering from active drug or alcohol addiction. Mothers on certain medications like radioactive iodine, sedatives, certain seizure medications, certain cold medications like those containing pseudoephedrine or those undergoing active chemotherapy treatment. Mothers with Hepatitis B or C with active viral loads and bleeding or cracked nipples. Mothers of babies with galactosemia or phenylketonuria or maple syrup urine disease. Mothers with inverted nipples or babies with cleft lips or palates may have difficulties with , but most may still be able to breastfeed with certain adaptations or with pumping. Patient with prior breast surgery, breast implants or reductions, or breast radiation or those withinsufficient glandular tissue may struggle with low milk supply. If you struggle with low milk supply, be sure you are staying well hydrated. Breastfeed or pump more often, at least every 3-4 hours. You may want to try some OTC supplements like fenugreek. Some women notice healthy diet changes like eating plain oatmeal help. Handling and Storage of breastmilk: Room temperautre (up to 77F) up to 4 hours Refridgerator (below 40F) up to 4 days Freezer (0F) up to 6 months Deep freezer (-4F) up to 12 months Thawed breast milk in the fridge: use within 24 hours How do I breastfeed? During the few weeks of life baby will breastfeed A LOT! It is normal for them to clusterfeed frequently to help increase your milk supply. Typically your milk comes in 48-96 hours after . If you havent had milk production by day 5 you should call your doctor and consider seeing alactation wound care center consultant. You should try to put baby to breast every 2 hours in the first weeks of life and offer each breastwith each feed. Babies will typically have 8 to 12 feeds in the first few weeks. A typical nursing schedule for baby in the first weeks is 20-30 minutes every 2- 3 hours. Some babies will drink every 1.5 hours and some will space out to every 3 or 4 hour. Breastfed babies, unlike formula fed babies do not increase the amount of milk they drink as they age as your milk changes with them. They drink about 1-1.5 oz of breast milk per hour or 4-5 oz every3-4 hours. How do I know my baby is getting enough? Many women worry that their baby isnt getting enough, when in reality most women are producting enough. If you are concerned you should discuss with your director of religious life. It is normal for breastfed babies to lose up to 10% of their weight while your milk comes in. Your baby should be back to their weight by 2 weeks of age. Babies typically gain 20-30 grams a day or 4-7 ounces a week for the first 4-6 months. If baby is having normal weight gain and having 6-8 wet diapers a day, there is little concern for low production. If you worried about babys milk transfer you may do a weighted feed with a director of religious life, your obgynor your email production consultant. What are signs my baby isnt getting enough? If you baby never settles in between feeds, has low urine output or poor weight gain they may need supplementation. It is perfectly normal and okay to need to supplement with formula. Even some breast milk is beneficial for you and baby. However, may not work well for everyone- if it is causing you significant stress it may be time to switch to some or all formula. What are some reasons for low milk supply? Poor latch can cause difficulty with maintaining supply. If you are having continued nipple pain with feeding or concerns about supply you should be evaluated by a email production consultant. Your baby isnt feeding enough. In the first few weeks baby should 8-12 times in 24 hours. You have inadequate breast tissue or have had a prior breast surgery. Your breast tissue develops with each , so even if you were unable to exclusively breastfeed with one , you maybe able to in the future. You have a medical condition or take medications that decrease milk supply: retained placenta, abnromal hormone levels can prevent breast milk production. This is rare. You should avoid decongestantsduring as this is commonly used to suppress . I have low supply, what can help? is supply and demand so keep offering breast to baby as much as possible. Supplement only after offereing breast (if needed). Increasing hydration: especially water. Coconut water or coconut milk may be helpful for some women. Adequate nutrition. Some people notice a decrease in supply with any calorie cutting. Be sure to have a well balanced diet. Supplements: there is limited data on supplements in but some women may have increases with brewers yeast, goats rue, milk thistle, fenugreek (although some women notice a decrease as well) garlic, moringam, fennel. Studies have shown little to no increase with these supplements. Prescription medications: metoclopramide and domperidone have been used to induce in those with low prolactin. Domperidone is not currently available in the [place]. There is a risk of increased QT intervals and sudden cardiac with domperidone in women > 60 yo or with pre-existing heart conditions. Tardive dyskinesia or abnormal muscle movements have not been seen with doses used for (30-60 mgper day) side effects like dry mouth, cramping, headache may occur. Metoclopramide is avaiilable in the [place] but has highger rates of depression and tardive dyskinesia as well as cardiac effects. When do I start pumping? Unless you are from your baby or are having difficulty with milk supply, we do not recommend pumping in the first 3 weeks for most mothers as this can lead to an over supply of milk and increased risk of mastitis. If you are from your baby at all you should pump any time baby would feed. After 3 weeks when you milk is more established you may pump after every feed. Typically you will only get 0.25 to 1 oz total after baby has fed. You can save this milk up to feed later or freeze forwhen you are from baby or if you are going back to work. In the first few weeks you may use a passive seed collector like a haaka on the opposite side you are feeding on if you are having leakage during feeding and save this as well. Most people will need to pump for 10-20 minutes, but if you are replacing a feed you can stop pumping after milk stops flowing. If you are trying to increase milk supply you may try power pumping 1-2 times per day for a total of 40 minutes. (10 minute pump, 10 minute rest, 20 minute pump, 20 minute resut, 10 minute pump etc_as this simulates how baby cluster feeds. Helpful products for : lanolin or similar nipple butter- apply to nipples after every feed to prevent nipple chaffing. Youdo not need to wipe these off before your next feed. Breast warmers may help in the early weeks with any discomfort or help with let down, hot showers can also be helpful for discomfort. Vigorous breast massage should be avoided as this can cause tissue damage and worsen pain and clogged ducts. Gentle lymphatic massage can be used to help loosen any clogged ducts. Silverettes- silver nipple covers placed in between feeding can help with pain and discomfort Breastpads- available in disposable and non disposable options these can help with unintentional let down and leakage. Most women do not need to use these emt intermediate but find them helpful in the firstfew weeks. Follow Up Care 10/26/2023 08:57:08 With:KAITLIN CARROLL MD Address: [address] [place] [phone] When:12/25/2023 With:KAITLIN CARROLL MD Address: [address] [place] [phone] When:11/27/2023 [facility] 12-24-2023 Anesthesiology Consult note Patient: GABRIELLE CARROLL V Age: 23 years Sex: Female : 2000 Associated Diagnoses: None Author: GEORGIA ESCALERA RN IMCU-HOG ROOM SUPERVISOR Preoperative Information Time of last food or liquid consumption: 11/12/2023 00:00:00 Anesthesia history Patient's history: negative. Family's history: negative. Review of Systems Ear/Nose/Mouth/Throat: Negative. Respiratory: Snoring. Cardiovascular: Negative. Gastrointestinal: MO. Genitourinary: Negative. Endocrine: gest DM. Musculoskeletal: Negative. Integumentary: Negative. Neurologic: depression. Health Status Allergies: Nonallergic Reactions (Selected) Severity Not Documented Imitrex- Rash., Allergies (1) ActiveReaction ImitrexRash Current medications: (Selected) Inpatient Medications Ordered Analpram-HC 2.5%-1% rectal cream: 1 kelsey, Perineum, q1h, PRN: hemorrhoidal or perineal discomfort Anusol-HC 25 mg rectal suppository: 25 mg, 1 supp, Rectal, BID, PRN: hemorrhoidal discomfort Colace: 100 mg, 1 cap(s), Oral, BID, PRN: Constipation Dermoplast topical spray: 1 spray(s), Perineum, q1h, PRN: Other (see order comments) Feosol: 325 mg, 1 tab(s), Oral, BID Feosol: 325 mg, 1 tab(s), Oral, qDay Lansinoh for Breast Feeding Mothers: 7 gram(s), 1 EA, Topical, AsDirected, PRN: Other (see order comments) Lovenox: 40 mg, 0.4 mL, Subcutaneous, qDay Mylicon: 80 mg, 1 tab(s), Chewed, TID, PRN: Gas Narcan: 0.1 mg, 0.25 mL, IV Push, AsDirected, PRN: Control symptoms Nubain: 5 mg, 0.5 mL, IV Push, q2h, PRN: Itching Ofirmev IVPB: 1,000 mg, 100 mL, 400 mL/hr, IV Piggyback, q6h, PRN: Pain Percocet 325/5: 1 tab(s), Oral, q4h, PRN: Pain, scale 4-6 Percocet 325/5: 2 tab(s), Oral, q4h, PRN: Pain, scale 7-10 Pharmacy See ORDER COMMENTS: 1 EA, Miscellaneous, Daily Rhophylac: 300 mcg, 2 mL, Intramuscular, AsDirected, PRN: if Rh factor neg per policy Toradol: 15 mg, 0.5 mL, IV Push, q8hr Tums: 1,000 mg, 2 tab(s), Chewed, qDay, PRN: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 Hep C ab non reactive Hep Bs Ag non reactive GC/CT negative Rubella immune Varicella ? UDS negative UrCx: 10-50 normal urogenital lee ann HgbA1c 5.2 early glucola 149 early 3 hour: 95/194/171/73 CMP wnl TSH 0.88 Pap NA Genetic testing NIPT low risk FF 5.6% 28 week labs CBC 8.4/10.5/30.8/249 1 hour OGCT 191 RPR non reactive 36 week labs GBS negative on 10/06 Imaging Results and Diagnostics 10/24:s/hilda breech/2881g 6#6oz (52%le)/146bpm/AFI5.4 (MVP3.1cm)/ant-gr1 Assessment/Plan 38 weeks gestation of PROM nitrazine + Anemia in on oral iron, continue pp Breech presentation to OR for PCS Gestational diabetes mellitus, class A1 6 week 2 hour glucola needed Obesity in 3 g ancef Oligohydramnios last ALIYA up to 11 cm PROM (premature rupture of membranes) Rh negative, antepartum rhogam pp as indicated Short cervix during in third trimester on PG in first trimester Orders: calcium carbonate, Start: 11/12/23 8:54:00 EST, Dose = 1,000 mg, = 2 tab(s), Chewed, qDay, PRN, Dyspepsia, 0, 11/12/23 8:54:00 EST carboprost, Start: 11/12/23 6:08:00 EST, Dose = 250 mcg, = 1 mL, Intramuscular, Once, PRN, Other (see order comments), 11/12/23 6:08:00 EST ceFAZolin, Start: 11/12/23 8:39:00 EST, Dose= 3 gram(s), IV Piggyback, PREOP pharm, Routine, Rate: 200 mL/hr, Infuse over: 30 minute(s), 100 mL, for weight greater than 120 kg, 11/12/23 8:39:00 EST citric acid-sodium citrate, Start: 11/12/23 6:08:00 EST, Dose = 30 mL, Soln, Oral, AsDirected, PRN,Gastric Upset, 11/12/23 6:08:00 EST ferrous sulfate, Start: 11/12/23 12:00:00 EST, Dose = 325 mg, = 1 tab(s), Oral, qDay, 11/12/23 8:54:00 EST hydrOXYzine, Start: 11/12/23 8:54:00 EST, Dose = 25 mg, = 1 cap(s), Oral, QID, PRN, Anxiety, 11/12/23 8:54:00 EST Lactated Ringers Infusion, Start: 11/12/23 6:08:00 EST, Dose = 500 mL, Soln, IV Bolus, AsDirected, PRN, Other (see order comments), Rate: 500 mL/hr, hour(s), 11/12/23 6:08:00 EST Lactated Ringers Infusion 1,000 mL, Start: 11/12/23 6:08:00 EST, Rate: 125 mL/hr, 11/12/23 6:08:00 EST lidocaine, Start: 11/12/23 6:08:00 EST, Dose = 20 mg, = 2 mL, Perineum, AsDirected, PRN, to perineal sutures, 1 dose(s), Stop: Limited # of times, 11/12/23 6:08:00 EST methylergonovine, Start: 11/12/23 6:08:00 EST, Dose = 0.2 mg, = 1 mL, Intramuscular, Once, PRN, Other (see order comments), 11/12/23 6:08:00 EST miSOPROStol, Start: 11/12/23 6:08:00 EST, Dose = 1,000 mcg, = 5 tab(s), Rectal, Once, PRN, Other (see order comments), 0, 11/12/23 6:08:00 EST ondansetron, Start: 11/12/23 6:08:00 EST, Dose = 4 mg, = 2 mL, IV Push, q4h, PRN, Nausea, 11/12/23 6:08:00 EST oxytocin, Start: 11/12/23 6:08:00 EST, Dose = 20 unit(s), = 2 mL, Intramuscular, Once, PRN, Other (see order comments), 11/12/23 6:08:00 EST oxytocin 20 unit(s) + LR Premix Diluent 1,000 mL, Start: 11/12/23 6:08:00 EST, Rate: 999 mL/hr, 11/12/23 6:08:00 EST terbutaline, Start: 11/12/23 6:08:00 EST, Dose = 0.25 mg, = 0.25 mL, Subcutaneous, AsDirected, PRN,Other (see order comments), 11/12/23 6:08:00 EST tranexamic acid, Start: 11/12/23 6:08:00 EST, Dose = 1 gram(s), = 100 mL, IV Piggyback, AsDirected,PRN, Other (see order comments), Rate: 300 mL/hr, Infuse over: 20 minute(s), 0, 11/12/23 6:08:00 EST Abdominal Prep Admit to Inpatient Ambulate Code Status Communication Order (scheduled) Consult to Anesthesia Consult to Anesthesia Epidural Anesthesia Monitoring Incentive Spirometer Intake and Output IV Catheter Insertion/Care NPO NPO Oxygen Administration (LDRP) Prn Adapter Rapid Plasma Reagin Test Sequential Compression Device Application Sign Consent Skin Prep/Scrub Straight Cath Type and Screen (AO) Urinary Catheter Insertion/Care Urinary Catheter Insertion/Care Vital Signs Vital Signs Call Parameters Problem List/Past Medical History Ongoing BMI 40.0-44.9, adult Body mass index 30+ - obesity Breech presentation Depression Encounter for care of primigravida in third trimester, antepartum growth restriction Habitual aborter Headache Insulin resistance Migraine Oligohydramnios Oligohydramnios labor without delivery Tonsillectomy Historical No chronic problems Threatened Procedure/Surgical History Dilation and curettage: 02/2022 Tonsillectomy: 2004 Tooth extraction Medications Home Medications (6) Active aspirin 81 mg oral tablet, chewable 81 mg = 1 tab(s), Oral, Daily Dulcolax Stool Softener 100 mg, PRN, Oral, BID IRON (ferrous sulfate 325 mg) 65 mg oral tablet 325 mg = 1 tab(s), Oral, qDay Multivitamins with Vitamin B Complex, Vitamin C, Minerals and L- Methylfolate oral capsule 1 cap(s), Oral, Daily Tums 1,000 mg, PRN, Chewed, qDay Vistaril 25 mg oral capsule 25 mg = 1 cap(s), PRN, Oral, QID Allergies Imitrex (Rash) Social History Smoking Status - 03/11/2018 Never smoker Alcohol - Denies Alcohol Use, 08/16/2017 Use: Never., 10/02/2020 Employment/School Status: Employed. Activity Level: Moderate physical work. Description: [employer]., 09/24/2021 Exercise Exercise type: Walking. Days per week: Daily., 09/24/2021 Home/Environment Domestic Concerns: None. Living situation: Home/Independent., 09/24/2021 Nutrition/Health Caffeine intake amount: 1-2 per day., 03/11/2022 Type of diet: Regular. Appetite Good., 09/24/2021 Sexual Sexually active: Yes. History of sexual abuse: No., 09/24/2021 Substance Abuse - Denies Substance Abuse, 08/16/2017 Use: Never., 10/02/2020 Tobacco - No Risk, 07/31/2022 Nicotine Use: Never (less than 100 in lifetime)., 09/24/2021 Family History Asthma: Father and Brother. Cervical cancer: Sister. Thyroid cancer: Grandparent. Immunizations tetanus/diphth/pertuss (Tdap) adult/adol: 0.5 mL (09/05/23) Code Status Code Status - Ordered -- 11/12/23 6:07:00 EST, Full Code, Constant Order Digitally Signed by KAITLIN CARROLL MD on 11/12/2023 09:00 AM [facility]12-03-2023 History of Present illness Narrative * Barry Reeves MD - 10/22/2023 6:36 PM EST Subjective Gabrielle Carroll is a 23 year old female. Gabrielle presents today for her annual wellness visit. She term . She is scheduled for next week due to baby being breech. Review of Systems Constitutional: Negative. HENT: Negative. Eyes: Negative. Respiratory: Negative. Cardiovascular: Negative. Gastrointestinal: Negative. Endocrine: Negative. Genitourinary: Negative. Musculoskeletal: Negative. Skin: Negative. Allergic/Immunologic: Negative. Neurological: Negative. Hematological: Negative. Psychiatric/Behavioral: Negative. PAST SURGICAL HISTORY Procedure Laterality Date PAST SURGICAL HISTORY OF 2020 [place] teeth extracted TONSILLECTOMY AND ADENOIDECTOMY HX PAST MEDICAL HISTORY Diagnosis Date Headache NEGATIVE MEDICAL HISTORY FAMILY HISTORY Problem Relation Age of Onset Cervical Cancer Sister Social History Tobacco Use Smoking status: Never Smokeless tobacco: Never Vaping Use Vaping Use: Never used Substance Use Topics Alcohol use: Never Drug use: Never ALLERGIES Allergen Reactions Sumatriptan Mental Status Change, Rash, Other: See Comments MEDICATIONS: ferrous sulfate 325 mg (65 mg iron) tablet Take 325 mg by mouth once daily. vit no.124/iron/folic ( VITAMIN ORAL) Take by mouth. albuterol HFA (PROAIR HFA) 90 mcg/actuation inhaler Inhale 2 Puffs as instructed every 4 hours as needed. aspirin 81 mg chewable tablet chew 1 (ONE) tablet BY MOUTH ONCE DAILY Allergies, past surgical history, family history and past medical history were reviewed per this encounter. Medications were reviewed and verified. Objective BP 130/82 (BP Site: Left Arm, BP Position: Sitting, BP Cuff Size: Regular Adult) Pulse 88 Temp 36.3 C (97.3 F) (Temporal) Resp 18 Ht 160 cm (5' 3) Wt 118.4 kg (261 lb) LMP 06/03/2021 SpO2 96% BMI 46.23 kg/m Physical Exam Vitals reviewed. Constitutional: Appearance: Normal appearance. HENT: Head: Normocephalic and atraumatic. Nose: Nose normal. Eyes: Extraocular Movements: Extraocular movements intact. Pupils: Pupils are equal, round, and reactive to light. Cardiovascular: Rate and Rhythm: Normal rate and regular rhythm. Pulmonary: Effort: Pulmonary effort is normal. Breath sounds: Normal breath sounds. Abdominal: General: Bowel sounds are normal. Palpations: Abdomen is soft. Musculoskeletal: General: Normal range of motion. Cervical back: Normal range of motion and neck supple. Skin: General: Skin is warm and dry. Capillary Refill: Capillary refill takes less than 2 seconds. Neurological: General: No focal deficit present. Mental Status: She is alert and oriented to person, place, and time. Mental status is at baseline. Psychiatric: Mood and Affect: Mood normal. Behavior: Behavior normal. Assessment and Plan Encounter Diagnosis ICD-10-CM 1. Wellness examination Z00.00 COMP METABOLIC PANEL 2. Screening for deficiency anemia Z13.0 CBC + DIFF 3. Lipid screening Z13.220 LIPID PANEL BASIC 4. Steatosis of liver K76.0 5. 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 Anxiety F41.9 7. Depression, unspecified depression type F32.A 8. and not yet delivered in third trimester Z34.93 All open preventative health maintenance topics discussed with patient in detail. This includes risks and benefits regarding vaccines, cancer screening, healthy life style, and diet. Barry Reeves MD * Rubi Middleton LPN - 10/18/2023 1:41 PM EST [facility] Covid-19 Vaccine(1) declined Pneumococcal Vaccine(1 - PCV) declined Urine Albumin:Creatinine Ratio declined Dilated Retinal Exam declined Diabetic Foot Exam declined Meningococcal B Vaccine: Consider Based On Risk(1 of 2 - Patient Seeks Protection) declined LDL Cholesterol Pap Testing Dr. Campuzano Influenza Vaccine(1) declined Patient is having induced delivery Monday of next week. Rubi Middleton LPN October 18, 2023 1:51 PM [facility] Discharge instructions Patient Education 10/13/2023 19:22:11 7 - Labor and Delivery Outpatient Instructions (CUSTOM) [facility] DELIV[facility] OUTPATIENT HOME-GOING INSTRUCTIONS _X_ You are to follow up with your physician in ___ days/weeks. ACTIVITY ___ Bedrest _x__Activity as tolerated ___ No work/school for ___ days. ___Other PRESCRIPTION GIVEN ___Yes NAUSEA/VOMITING ___ Take small, frequent amounts of clear liquids. Avoid fruit juices and milk. ___ Increase fluid intake to a minimum of 8 ounces of fluid every hour while awake. ___ Soft diet. Rice, crackers, bananas, Jell-O, cooked carrots, applesauce. ___ [place] diet. Avoid caffeine, chocolate, alcohol, spiced/greasy foods. URINARY TRACT INFECTION ___ Drink 8-12 glasses of water every day. ___ Urinate frequently; do not limit fluids to reduce frequency of urination. ___ Call your physician if burning and frequency with urination returns after taking all your medication. ___ Call your physician if you have a temperature of 100.4 degrees Fahrenheit or higher. ___ Wipe from front to back. SIGNS OF PRE-ECLAMPSIA ___ Severe heartburn. ___ Persistent headache not relieved by Tylenol. ___ Increased in swelling of face, hands and feet. ___ Blurred vision, double vision, or spots in the eyes. ___ Persistent vomiting. ___ *Convulsions or seizures. LABOR ___ Restrict activity. ___ Drink 8-12 glasses of water every day. ___ Urinate frequently ___ Pelvic rest. No sexual intercourse/ Call your physician if you experience: __x_ Increase in vaginal discharge, leaking fluid, or vaginal bleeding. __x_ More than 4, 5, or 6 contractions in one hour. __x_ Burning and frequency with urination. DECREASED MOVEMENT ___x Lie down on your left side, drink some fluids and relax. Count the movements. You need to have 10 movements in 2 hours. __x_ If you do not feel the 10 movements, call your physician. OTHER ___ After an exam you may experience some spotting or discharge. As long as it is not bright red and heavy like a period or continues to leak as if your water broke, it is to be expected. ___ LABOR Call your physician if you experience: __x_ Painful uterine contractions every __6_ minutes for _1__ hours. ___A gush or continuous trickle of watery discharge. COME TO THE HOSPITAL AND CALL PHYSICIAN IF: __x_ Your abdomen feels continually firm. ___x *Bleeding is bright red and enough to saturate a pad in one hour or less. *Call 911 or go to the nearest Emergency Room for assistance. Form [id number] D: 10/28 Document Released: 11/06/2006 Document Revised: 10/25/2012 Document Reviewed: 11/06/2006 [facility] Patient Information 2012 [employer]. Follow Up Care 10/13/2023 18:16:29 With:SOCO CAMPUZANO MD Address: [address] [place] [address] [place] [address]- [phone] When: Unknown Comments:Follow-up as scheduled [facility] 11-21-2023 Hospital Discharge instructions Patient Education 10/10/2023 08:59:31 7 - Labor and Delivery Outpatient Instructions (CUSTOM) [facility] DELIVERY OUTPATIENT HOME-GOING INSTRUCTIONS _X_ You are to follow up with your physician in ___ days/weeks. ACTIVITY ___ Bedrest _X__Activity as tolerated ___ No work/school for ___ days. ___Other PRESCRIPTION GIVEN ___No SIGNS OF PRE-ECLAMPSIA _X__ Severe heartburn. _X__ Persistent headache not relieved by Tylenol. _X__ Increased in swelling of face, hands and feet. _X__ Blurred vision, double vision, or spots in the eyes. _X__ Persistent vomiting. _X__ *Convulsions or seizures. Call your physician if you experience: _X__ Increase in vaginal discharge, leaking fluid, or vaginal bleeding. _X__ More than 4, 5, or 6 contractions in one hour. _X__ Burning and frequency with urination. DECREASED MOVEMENT _X__ Lie down on your left side, drink some fluids and relax. Count the movements. You need to have 10 movements in 2 hours. _X__ If you do not feel the 10 movements, call your physician. OTHER __X_ After an exam you may experience some spotting or discharge. As long as it is not bright red and heavy like a period or continues to leak as if your water broke, it is to be expected. ___ LABOR Call your physician if you experience: _X__ Painful uterine contractions every _2-5__ minutes for _2__ hours. _X__A gush or continuous trickle of watery discharge. COME TO THE HOSPITAL AND CALL PHYSICIAN IF: _X__ Your abdomen feels continually firm. _X__ *Bleeding is bright red and enough to saturate a pad in one hour or less. *Call 911 or go to the nearest Emergency Room for assistance. Form [id number] D: 10/28 Document Released: 11/06/2006 Document Revised: 10/25/2012 Document Reviewed: 11/06/2006 [employer] Patient Information 2012 [employer], [facility]. Follow Up Care 10/07/2023 13:14:21 With:STEFANI HEATON MD Address: [address] [place] [address] [place] [address] [phone] When: Unknown Comments:Follow-up as scheduled With:ELVIRA GARAY MD, Maternal- Medicine Address: [address] [place] [address] [address] [facility] [place] [address]- When: Unknown Comments:Follow-up as scheduled [facility] 11-21-2023 Note Discharge Instructions Thank you for allowing [facility] to assist you with your healthcare needs. The following is importantdischarge information regarding your hospital visit. Your Care Team BARRY REEVES MD Your Diagnosis BMI 40.0-44.9, adult Habitual aborter What to do next Scheduled Follow-Up Appointments Monday 2:30 PM EST Where: [facility] Monday 1:30 PM EST Where: [facility] Monday 2:30 PM EST Where: [facility] Follow Up Appointments Follow Up with STEFANI HEATON MD When Why: Follow-up as scheduled Where: [address] [place] [address] [place] [address] [phone] Follow Up with ELVIRA GARAY MD, Maternal- Medicine When Why: Follow-up as scheduled Where: [address] [place] [address] [address] [facility] [place] [address]- Someone Will Contact You Regarding These Home Health Referrals No home referrals have been ordered for you. No one will call you. The Following Activity and Diet Have Been Ordered for You No qualifying data available. Discharge Diet - Ordered -- Type of Diet: Regular, No changes were made to your diet during your hospital stay. Please resume your pre hospitalization diet on discharge., 10/10/23 8:52:00 EST The Following Equipment Has Been Ordered for You No qualifying data available. The Following Treatments Have Been Arranged for You Discharge Labs No qualifying data available. Discharge Radiology No qualifying data available. Other Therapies No qualifying data available. Allergies Imitrex Medications Please ask your primary doctor or pharmacist before taking any other medication not listed, including over the counter drugs, herbal medications, vitamins and or supplements as they may interact withyour home medications. What How Much When Why Instructions Last Dose Unchanged aspirin (aspirin 81 mg oral tablet, chewable) 1 tab(s) by mouth Every day Habitual aborter BMI 40.0-44.9, adult Unchanged calcium carbonate (Tums) 1,000 Milligram Chewed Once a day Unchanged DME (Alcohol Swabs) See instructions Gestational diabetes Check 4x/ Day.any brand covered. Unchanged DME (Blood Glucose Test Machine) See instructions Gestational diabetes Check 4x/ Day, fasting and 1 hour pp. any brand covered. Unchanged DME (Blood Glucose Test Strips) See instructions Gestational diabetes Check 4x/ Day. any brand covered Unchanged DME (Lancets) See instructions Gestational diabetes Check 4x/ Day Unchanged docusate (Dulcolax Stool Softener) 100 Milligram by mouth Two (2) times a day as needed for as needed for constipation Unchanged ferrous sulfate (IRON (ferrous sulfate 325 mg) 65 mg oral tablet) 1 tab(s) by mouth Once a day Take with food. Unchanged hydrOXYzine (Vistaril 25 mg oral capsule) 1 cap by mouth Four (4) times a day as needed for for anxiety Unchanged multivitamin, ( Multivitamins with Vitamin B Complex, Vitamin C, Minerals and L-Methylfolate oral capsule) 1 cap by mouth Every day Please take this list to your next doctor s visit. Bring all medications you take, including over the counter medications, herbals and other supplements with you to your doctor s visit. Patients and families are reminded to discard old lists and to update any records with all medication providers or retail pharmacies. Education Materials [facility] DELIVERY OUTPATIENT HOME-GOING INSTRUCTIONS _X_ You are to follow up with your physician in ___ days/weeks. ACTIVITY ___ Bedrest _X__Activity as tolerated ___ No work/school for ___ days. ___Other PRESCRIPTION GIVEN ___No SIGNS OF PRE-ECLAMPSIA _X__ Severe heartburn. _X__ Persistent headache not relieved by Tylenol. _X__ Increased in swelling of face, hands and feet. _X__ Blurred vision, double vision, or spots in the eyes. _X__ Persistent vomiting. _X__ *Convulsions or seizures. Call your physician if you experience: _X__ Increase in vaginal discharge, leaking fluid, or vaginal bleeding. _X__ More than 4, 5, or 6 contractions in one hour. _X__ Burning and frequency with urination. DECREASED MOVEMENT _X__ Lie down on your left side, drink some fluids and relax. Count the movements. You need to have 10 movements in 2 hours. _X__ If you do not feel the 10 movements, call your physician. OTHER __X_ After an exam you may experience some spotting or discharge. As long as it is not bright red and heavy like a period or continues to leak as if your water broke, it is to be expected. ___ LABOR Call your physician if you experience: _X__ Painful uterine contractions every _2-5__ minutes for _2__ hours. _X__A gush or continuous trickle of watery discharge. COME TO THE HOSPITAL AND CALL PHYSICIAN IF: _X__ Your abdomen feels continually firm. _X__ *Bleeding is bright red and enough to saturate a pad in one hour or less. *Call 911 or go to the nearest Emergency Room for assistance. Form [id number] D: 10/28 Document Released: 11/06/2006 Document Revised: 10/25/2012 Document Reviewed: 11/06/2006 [employer] Patient Information 2012 [employer]. Additional Information VACCINATE! IT SAVES LIVES! Members of the community who have not yet received the COVID-19 vaccine and would like to receive it can visit one of [facility] vaccine clinics. There are many vaccine clinic locations within the State. For locations and available times, please visit www.gettheshot.coronavirus.[place].gov/. It is important to note that some COVID mobile vaccine clinics are held outdoors and may be canceled in rainy or stormy conditions. To learn more about pediatric vaccinations (ages 5-11), we invite you to visit the [facility] webpage. https://www.[facility]ingss.org/pages/1177-Plicq-Cugwyuxlcek-Cbdhmzbrao-Htitn-Txf stions.htmlTo learn more about the COVID-19 vaccine, we invite you to visit the CDC website for a list of frequently asked questions. https://www.cdc.gov/coronavirus/2019-ncov/vaccines/faq.html [facility] Patient Portal Access Instructions: Stay connected with your healthcare team and access your personal medical information anytime with the [facility] Patient Portal.If you would like a full copy of your medical records, please contact the [facility] Medical Records Department, Monday through Monday between 8a.m. and 4:30p.m. Please follow the directions below to access the portal: 1.Access the email account you provided upon registration to the hospital.2.Look for an invitation email from [facility].3.Open the email and access the invitation link: Accept Invitation to [facility]4.Fill in the required brown to create your account. Sign into www.[employer] with your username and password that you created in the above steps to stay up to date. You can then view a summary of results, a summary of your visits, and the ability to download your summaries to your computer or send the information securely to a physician. Remember that your healthcare information is confidential, so carefully consider who you will allow to register on the [facility] Patient Portal for access to your information. You can also access the [facility] Patient Portal on the [employer] [address]. Simply click on Health Records under [employer] and then click on the [employer] logo. HOW TO SAFELY DISPOSE OF PRESCRIPTION MEDICATIONS Please use one of the following methods to safely dispose of your unused medications. 1.Use a drug disposal kit: the drug disposal pouch allows you to safely discard your old and unuseddrugs. Ask your nurse to give you one when you are discharged.2.Visit a local take-back location: Many local pharmacies and police departments have programs that collect old and unwanted prescriptiondrugs. Call your local pharmacy or go to http://Sprig.[employer]/8W3At0b to find one close to you.3.Make use of household items: Use cat litter or old coffee grounds to dispose medications if other options arenot available. Mix your drugs with these household products, seal them in an airtight container andthrow it into the garbage. Call [facility]: [phone] to be sure your drugs can be disposed of in this way. Some medicines may require a different approach.4.Never flush your medications down the toilet. IF YOU HAVE BEEN PRESCRIBED AN OPIOID FOR PAIN If you have been prescribed an opioid (such as hydrocodone, oxycodone or morphine), it is critical to understand the possible side effects and risks of opioid pain medications. Even when taken as directed, opioids can have several side effects including: Tolerance, meaning you might need to take more of a medication for the same pain relief. Nausea, vomiting and/or constipation. Sleepiness, dizziness, dry mouth, confusion, depression or itching. Physical dependence, meaning you have withdrawal symptoms when a medication is stopped, can develop within a few days. KNOW YOUR RESPONSIBILITIES It is important to know exactly how much and how often to take the opioid pain medications you are prescribed. Never take opioids in higher amounts or more often than prescribed. Do not combine opioids with alcohol or other drugs that cause drowsiness, such as benzodiazepines, also known as benzos,including diazepam and alprazolam, muscle relaxants or sleep aids. Never sell or share prescriptionopioids. This is illegal. Store opioids in a secure place and out of reach of others (including children, family, friends and visitors). The last page of this document has been signed and retained as a CHART COPY Signatures Patient Education Materials 7 - Labor and Delivery Outpatient Instructions (CUSTOM) Medication Leaflets My discharge plan and instructions have been reviewed and explained to me and IGLEN ALLISON V understand my current condition and have read and understand these discharge instructions. I have received a written copy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 132 mmHg Diastolic Blood Pressure Non-Invasive 86 mmHg Reason For Taking VItal Signs Routine 10/07/2023 15:01 EST Temperature Oral 37.1 DegC 10/07/2023 13:39 EST Temperature Oral 36.7 DegC Apical Heart Rate 112 bpm HI Respiratory Rate 18 br/min Systolic Blood Pressure Non-Invasive 121 mmHg Diastolic Blood Pressure Non-Invasive 68 mmHg 10/07/2023 12:00 EST Temperature Oral 36.7 DegC Heart Rate Monitored 112 bpm HI Respiratory Rate 18 br/min Systolic Blood Pressure Non-Invasive 121 mmHg Diastolic Blood Pressure Non-Invasive 68 mmHg Blood Pressure Method Automatic Blood Pressure Location Left arm Blood Pressure Cuff Size Large Reason For Taking VItal Signs Routine 10/07/2023 8:15 EST Temperature Oral 36.9 DegC Heart Rate Monitored 84 bpm Respiratory Rate 18 br/min Systolic Blood Pressure Non-Invasive 95 mmHg Diastolic Blood Pressure Non-Invasive 43 mmHg Blood Pressure Method Automatic Blood Pressure Location Left arm Blood Pressure Cuff Size Large Reason For Taking VItal Signs Routine 10/07/2023 4:52 EST Temperature Oral 36.9 DegC Heart Rate Monitored 92 bpm Respiratory Rate 20 br/min Systolic Blood Pressure Non-Invasive 103 mmHg Diastolic Blood Pressure Non-Invasive 45 mmHg Reason For Taking VItal Signs Routine 10/07/2023 0:08 EST Temperature Oral 36.9 DegC Heart Rate Monitored 106 bpm HI Respiratory Rate 20 br/min Systolic Blood Pressure Non-Invasive 106 mmHg Diastolic Blood Pressure Non-Invasive 45 mmHg Reason For Taking VItal Signs Routine 10/06/2023 20:00 EST Temperature Oral 36.7 DegC Heart Rate Monitored 92 bpm Respiratory Rate 20 br/min Systolic Blood Pressure Non-Invasive 102 mmHg Diastolic Blood Pressure Non-Invasive 58 mmHg LOW Reason For Taking VItal Signs Routine 10/06/2023 15:51 EST Temperature Temporal Artery 36.4 DegC Heart Rate Monitored 114 bpm HI Respiratory Rate 18 br/min Systolic Blood Pressure Non-Invasive 120 mmHg Diastolic Blood Pressure Non-Invasive 59 mmHg LOW Vital Signs(last 24 hrs) Last Charted Temp Oral36.8 DegC (OCT 07 16:) Heart Rate MonitoredH 108bpm (OCT 07:) Resp Rate 16 br/min (OCT 07:) HFC469 mmHg (OCT 07:) DBP86 mmHg (OCT 07:) BMI47.08 (OCT 07 15:38) Measurements from flowsheet : Measurements 10/07/2023 15:38 EST Height 157.5 cm Admission Weight 116.8 kg Bradford Body Weight 50.12 kg BSA Admission 2.13 Body Mass Index 47.08 kg/m2 10/07/2023 15:04 EST Height 157.5 cm Admission Weight 116.8 kg Bradford Body Weight 50.12 kg BSA Admission 2.13 Body Mass Index 47.08 kg/m2 10/06/2023 21:04 EST Height Not Done: Not Appropriate at this Time (Not Done) Height Not Done: Not Appropriate at this Time (Not Done) Admission Weight Not Done: Not Appropriate at this Time (Not Done) Admission Weight Not Done: Not Appropriate at this Time (Not Done) 10/06/2023 16:23 EST Height 160 cm Admission Weight 117 kg Bradford Body Weight 52.38 kg BSA Admission 2.15 Body Mass Index 45.7 kg/m2 Pain assessment: Pain Assessment 10/07/2023 16:22 EST Primary Pain Intensity 0 Primary Pain Nonverbal Response Appears restful Pain Scale Type 0-10 Pain scale 10/07/2023 8:15 EST Primary Pain Intensity 0 Pain Scale Type 0-10 Pain scale 10/07/2023 4:52 EST Primary Pain Intensity 0 Pain Scale Type 0-10 Pain scale 10/07/2023 0:08 EST Primary Pain Intensity 0 Pain Scale Type 0-10 Pain scale 10/06/2023 20:00 EST Primary Pain Intensity 0 Pain Scale Type 0-10 Pain scale 10/06/2023 15:51 EST Primary Pain Intensity 0 . General: Alert and oriented, No acute distress. Airway: Normal temporomandibular joint mobility, No damage to dentition, Normal neck range of motion. Mallampati classification: III (soft palate, base of uvula visible). Neurologic: Alert, Oriented. Review / Management Results review: Labs (Last four charted values) WBC 10.1(OCT 07) Hgb L 10.1(OCT 07) Hct L 30.5(OCT 07) Plt 261(OCT 07) , Lab results 10/07/2023 17:38 EST Maternal Medicine Consultation 10/07/2023 17:16 EST Monitoring Annotations Patient Repositioned left tilt ; Ultrasound transducer adjusted 10/07/2023 17:10 EST Monitoring Annotations Primary nurse at bedside; Ultrasound transducer adjusted 10/07/2023 17:09 EST Sodium Chloride 0.45% Begin Bag 1,000 mL mL 10/07/2023 17:00 EST Antecubital Right 10/06/2023 18 gauge Peripheral IV Activity: Assessed Peripheral IV Dressing Condition: Clean, Dry, Intact Peripheral IV Dressing Activity: Transparent dressing Peripheral IV Line Status/Patency: Continuous infusion Peripheral IV Site Condition: No complications Peripheral IV Equipment: IV Pump Pt./Caregiver Remote Cont.Visual Monitor Verbalizes/Nonverbally indicates understanding Activity Status ADL Awake, Lights dimmed Maternal Activity Eating Standard Safety Safety level maintained 10/07/2023 16:22 EST Temperature Oral 36.8 DegC Heart Rate Monitored 108 bpm HI Respiratory Rate 16 br/min Systolic Blood Pressure Non-Invasive 132 mmHg Diastolic Blood Pressure Non-Invasive 86 mmHg Reason For Taking VItal Signs Routine Primary Pain Intensity 0 Primary Pain Nonverbal Response Appears restful Pain Scale Type 0-10 Pain scale Oxygen Saturation 97 % 10/07/2023 16:21 EST Monitoring Annotations pt up to bathroom to shower 10/07/2023 16:15 EST Monitoring Annotations pt moved to antepartum room 10/07/2023 16:08 EST WBC 10.1 10^3/mcL RBC 3.38 10^6/mcL LOW Hgb 10.1 G/dL LOW Hct 30.5 % LOW MCV 90.5 fL MCH 29.9 pg MCHC 33.1 G/dL RDW 14.3 % Platelet 261 10^3/mcL MPV 9.5 fL Neutrophil % 70.4 % Lymphocyte % 20.7 % Monocyte % 8.6 % Eosinophil % 0.1 % Basophil % 0.2 % Neutrophil, Absolute 7.1 10^3/mcL Lymphocyte, Absolute 2.1 10^3/mcL Monocyte, Absolute 0.9 10^3/mcL Eosinophil, Absolute 0.0 10^3/mcL Basophil, Absolute 0.0 10^3/mcL 10/07/2023 15:40 EST Cervix Dilation 1 cm Cervix Effacement 10 Station -3 Station Calculation -3 10/07/2023 15:38 EST Designated Person #1 We May Share FLAKO Ludwig [phone] Designated Person #1 Relationship Significant other Privacy Restrictions Requested None Height 157.5 cm Admission Weight 116.8 kg Bradford Body Weight 50.12 kg BSA Admission 2.13 Body Mass Index 47.08 kg/m2 Expected Outcome Live Patient Type Inpatient Thrombosis Risk Factors (1) Obesity (greater than 20% over ideal body weight or BMI, (1) or post- less than 1 month Thrombosis Risk Factor Add'l Assessment NA Thrombosis Risk Score 2 Status Yes Risk Factors, Antepartum Current Preg Diabetes, gestational, non-insulin dependent, growth, restricted, Oligohydramnios, Other: shortened cervical length Movement Present Vaginal bleeding No PPH Risk Low risk for hemorrhage PPH Low Risk Factors Perez , Less than 4 previous deliveries, Unscarred uterus, Absence of hemorrhage history Anesthesia/Pain Medication During Labor None planned Maternal Transport Yes Transferring Hospital [facility] Thoughts of Harming Others - History No Thoughts of Suicide - History No Coping Effective Emotional Abuse History Denies Physical Abuse History Denies Sexual Abuse Denies Hospital Clergy to Visit Patient Verbalizes No Spiritual Needs Financial Concerns Re: Hospital/Disch No Living Situation Home independently Current Home Treatments None Professional Skilled Services None Special Services and Community Resources None Advanced Directives No - refuses information Infectious Disease Symptoms Patient states no symptoms Infectious Disease Recent Exposure No Alcohol and Drug Use No Employee of Institutional Living No 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 History of Exposure to TB No History of Positive Chest X-Ray for TB No History of Positive TB Skin Test No Homeless No Known Immunosuppression No Recent Immigrant No Resident of Institutional Living No Bloody Sputum No Fatigue No Fever No Loss of Appetite No Night Sweats No Persistent Cough > 3 Weeks No Weight Loss No Preferred Spoken Language Jordanian Preferred Written Language Jordanian Teaching Evaluation No further teaching needed Safety Brochure Information Reviewed Unable to complete [facility] Video Viewed No Chief Complaint low amniotic fluid Mode of Arrival Stretcher Accompanied by No one Information Given by Patient Patient's Current Physicians Dr. Campuzano, Dr. Marte Emergency Contact Number Oziel [phone] (FOB) Reason For Visit OB Suspected rupture of membranes Belongings At Bedside Luggage, Tablet computer, Undergarments Personal Home Medications Received No home medications were brought in Belongings Sent Home None Belongings to Security/Secured in Dept None Discharge To, Anticipated Home independently Other Anticipated Needs After Discharge No Anticoagulants Taken In Past 6 Wks. Yes Anticoagulant Taken Other: aspirin 81 mg daily Prev Test Positive/Diagnosis w/COVID-19 No Current Quarantine/Isolated any Illness No Any Contact with Sick Animals/Birds No Traveled Anywhere in Last 30 Days No Influenza Vaccine Need N/A outpatient No Able To Drink Order Detail Yes Able To Sign Consents Order Detail Yes Code Status Order Detail Full code IV Order Detail Yes Dialysis Schedule Order Detail N/A Has Diabetes Order Detail Yes Isolation Precautions Order Detail None Nurse Collect Order Detail 1 Oxygen Order Detail No Order Detail Yes Prior Valve Replacement Order Detail No Transport Mode Order Detail Patient bed Anesthesia/Transfusions None Admission Note-Nursing Patient History OB 10/07/2023 15:32 EST OB History and Physical Free Text Note 10/07/2023 15:20 EST Monitoring Annotations SSE and VE per Dr. Norris 10/07/2023 15:20 EST Speculum Exam Procedure explained, Patient assisted to lithotomy position, Privacy provided for patient, GBS culture obtained, INGA done, Cervical cultures obtained, fibrinectin obtained, Nitrazine negative, Wet [place], [place] POC 10/07/2023 15:04 EST Height 157.5 cm Admission Weight 116.8 kg Bradford Body Weight 50.12 kg BSA Admission 2.13 Body Mass Index 47.08 kg/m2 Expected Outcome Live Status Yes Risk Factors, Antepartum Current Preg Diabetes, gestational, non-insulin dependent, growth, restricted, Oligohydramnios, Other: shortened cervical length Movement Present Vaginal bleeding No Maternal Transport Yes Transferring Hospital [facility] Thoughts of Harming Others - History No Thoughts of Suicide - History No Emotional Abuse History Denies Physical Abuse History Denies Sexual Abuse Denies Advanced Directives No - refuses information Infectious Disease Symptoms Patient states no symptoms Infectious Disease Recent Exposure No Alcohol and Drug Use No Employee of Institutional Living No 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 Campuzano, Dr. Marte Emergency Contact Number Oziel [phone] (FOB) Reason For Visit OB Suspected rupture of membranes Belongings At Bedside Cell phone Personal Home Medications Received No home medications were brought in Belongings Sent Home None Belongings to Security/Secured in Dept None Prev Test Positive/Diagnosis w/COVID-19 Yes Previous COVID-19 Positive Date 2021 Current Quarantine/Isolated any Illness No Any Contact with Sick Animals/Birds No Traveled Anywhere in Last 30 Days No Influenza Vaccine Need N/A outpatient No Able To Drink Order Detail Yes Able To Sign Consents Order Detail Yes Code Status Order Detail Full code IV Order Detail Yes Dialysis Schedule Order Detail N/A Has Diabetes Order Detail Yes Isolation Precautions Order Detail None Nurse Collect Order Detail 1 Oxygen Order Detail No Order Detail Yes Prior Valve Replacement Order Detail No Transport Mode Order Detail Patient bed Admission Note-Nursing Patient History OB Triage 10/07/2023 15:01 EST Temperature Oral 37.1 DegC Violence Risk Confused No Violence Risk Irritable No Violence Risk Boisterous No Violence Risk Verbal Threats No Violence Risk Physical Threats No Violence Risk Attacking Objects No Violence Risk Predictor Score 0 Violence Risk Intervention None Violence Risk Current Interventions None 10/07/2023 15:00 EST Ambulation Ambulation in Room Pt./Caregiver Remote Cont.Visual Monitor Verbalizes/Nonverbally indicates understanding Ambulation Patient Effort Good Activity Status ADL Awake, Lights dimmed Standard Safety ID band on, Allergy Band on, Call device within reach, Bed in low position, Wheels locked, Upper/Half-Length side-rails up, Phone within reach, personal items within reach, Safety level maintained 10/07/2023 14:16 EST Monitoring Annotations Triage Evaluation 10/07/2023 14:10 EST Monitoring Annotations Discharged to [facility] 10/07/2023 14:10 EST Patient Information Note Transferred to [facility] via [facility] 10/07/2023 13:55 EST Monitoring Annotations [facility] here 10/07/2023 13:55 EST Uterine Contraction Monitoring Method External toco Uterine Contraction Intensity, Ext Palp Not palpable Uterine Resting Tone, External Soft Uterine Activity Not lizeth Baby A FHR Baseline: 145 bpm FHR Baseline Variability: Moderate variability FHR Accelerations: Present FHR Deceleration: Absent FHR Interpretation Category: Category One FHR Monitoring Method: External US transducer 10/07/2023 13:47 EST Melendrez Screen Daily History of Fall in Last 3 Months Melendrez No Presence of Secondary Diagnosis Melendrez No Use of Ambulatory Aid Melendrez None, bedrest, wheelchair, nurse IV/PRN Adapter Fall Risk Melendrez Yes Gait Weak or Impaired Fall Risk Melendrez Normal, bedrest, immobile Mental Status Fall Risk Melendrez Oriented to own ability Melendrez Fall Risk Score 20 Individuals Taught Patient Learning Readiness Willing to learn Barriers to Learning None evident Teaching Method Explanation Teaching Evaluation Verbalizes/Nonverbally indicates understanding Standard Safety Visitor at bedside Education Topics Fall Prevention Conventional call light use 10/07/2023 13:39 EST Temperature Oral 36.7 DegC Apical Heart Rate 112 bpm HI Respiratory Rate 18 br/min Systolic Blood Pressure Non-Invasive 121 mmHg Diastolic Blood Pressure Non-Invasive 68 mmHg Oxygen Saturation 99 % Antecubital Right 10/06/2023 18 gauge Peripheral IV Activity: Assessed Peripheral IV Dressing Condition: Clean, Dry, Intact Peripheral IV Dressing Activity: Transparent dressing Peripheral IV Line Status/Patency: Continuous infusion Peripheral IV Site Condition: No complications Peripheral IV Equipment: IV Pump Reason for Transfer Medically indicated transfer Patient's Legal Surgical Assistant Certified Other: Significant Other Patient's Condition for Transfer Stable, Patient is not in active labor Transfer Requirements Met Patient has received a medical screening, Patient will be transferred by qualified personnel, Receiving facility has agreed to accept transfer, Has available space and qualified personnel, Risks and benefits of transfer explained to patient, Risks and benefits explained [facility] telephone claims representative Transferring Physician ANTONIO BRIZUELA RN [id number] Receiving Facility Accepting Transfer [facility] Rep. of Receiving Facility Accepting Pt Dr Benítez Date/Time Transfer Accepted 10/07/2023 12:[address] Benítez Date/Time Physician Accepted Patient 10/07/2023 12:45 Nurse Receiving Report Venice Escobar RN Date/Time Nurse Received Report 10/07/2023 13:00 Data Sent with Patient Chart copy, Demographic sheet, Lab results Mode of Transfer Ground ambulance Required Personnel for Transfer Professor Of Marketing Belongings At Bedside Pants, Shoes, T-shirt, Undergarments Personal Home Medications Received No home medications were brought in Belongings Sent Home None Belongings to Security/Secured in Dept None Activity Status ADL Awake Standard Safety Safety level maintained, Precautions maintained Patient Transfer Form Patient Transfer Form 10/07/2023 13:30 EST Lunch Percent 90 % 10/07/2023 13:00 EST Transfer To/From Other: Rambo MANDUJANO Triage Uterine Contraction Monitoring Method External toco Uterine Contraction Intensity, Ext Palp Not palpable Uterine Resting Tone, External Soft Uterine Activity Not lizeth Patient Position, OB Semi-Ramirez's Baby A FHR Baseline: 145 bpm FHR Baseline Variability: Moderate variability FHR Accelerations: Present FHR Deceleration: Absent FHR Monitoring Method: External US transducer Mode of Arrival Stretcher Patient's Condition for Transfer Stable, Patient is not in active labor Date/Time Transfer Accepted 10/07/2023 13:00 Nurse Receiving Report Venice Escobar RN Date/Time Nurse Received Report 10/07/2023 13:00 10/07/2023 12:49 EST US Biophysical Profile US BIOPHYSICAL PROFILE 10/07/2023 12:45 EST [facility] Progress Note Transfer Note 10/07/2023 12:33 EST Uterine Contraction Monitoring Method External toco Uterine Contraction Intensity, Ext Palp Not palpable Uterine Resting Tone, External Soft Uterine Activity Not lizeth Baby A FHR Monitoring Method: External US transducer Heart Tone: 145 10/07/2023 12:19 EST Monitoring Annotations EFM off 10/07/2023 12:18 EST Baby A FHR Monitoring Method: External US transducer Heart Tone: 155 10/07/2023 12:16 EST Monitoring Annotations Ultrasound transducer adjusted 10/07/2023 12:15 EST Monitoring Annotations Ultrasound here 10/07/2023 12:00 EST Temperature Oral 36.7 DegC Heart Rate Monitored 112 bpm HI Respiratory Rate 18 br/min Systolic Blood Pressure Non-Invasive 121 mmHg Diastolic Blood Pressure Non-Invasive 68 mmHg Blood Pressure Method Automatic Blood Pressure Location Left arm Blood Pressure Cuff Size Large Reason For Taking VItal Signs Routine Heart Rhythm Regular Oxygen Saturation 99 % Uterine Contraction Monitoring Method External toco Uterine Contraction Intensity, Ext Palp Not palpable Uterine Resting Tone, External Soft Uterine Activity Not lizeth Patient Position, OB Semi-Ramirez's Baby A FHR Baseline: 125 bpm FHR Baseline Variability: Moderate variability FHR Accelerations: Present FHR Deceleration: Absent FHR Monitoring Method: External US transducer Antecubital Right 10/06/2023 18 gauge Peripheral IV Activity: Assessed Peripheral IV Dressing Condition: Clean, Dry, Intact Peripheral IV Dressing Activity: Transparent dressing Peripheral IV Line Status/Patency: Continuous infusion Peripheral IV Site Condition: No complications Peripheral IV Equipment: IV Pump Activity Status ADL Awake Standard Safety Safety level maintained, Precautions maintained 10/07/2023 11:37 EST calcium carbonate 1000 mg mg ferrous sulfate 325 mg mg multivitamin, 1 tab(s) tab(s) 10/07/2023 11:01 EST Notify date/time 10/07/2023 11:00 Provider Notified ANTONIO BRIZUELA Notification Method Phone Information Communicated Bedside blood glucose result(s) Details Communicated Notified of blood sugar 148 Notification Outcome Orders not received Person Reporting Result(s) Jessica Vu rn Results Read Back Yes 10/07/2023 11:00 EST Blood Glucose, Capillary 148 mg/dL HI Blood Glucose Testing Reason Routine Blood Glucose Interventions Notify physician Uterine Contraction Monitoring Method External toco Uterine Contraction Intensity, Ext Palp Not palpable Uterine Resting Tone, External Soft Uterine Activity Not lizeth Patient Position, OB Semi-Ramirez's Baby A FHR Baseline: 155 bpm FHR Baseline Variability: Moderate variability FHR Accelerations: Present FHR Deceleration: Absent FHR Monitoring Method: External US transducer Activity Status ADL Awake Standard Safety Safety level maintained, Precautions maintained 10/07/2023 10:00 EST Uterine Contraction Monitoring Method External toco Uterine Contraction Intensity, Ext Palp Not palpable Uterine Resting Tone, External Soft Uterine Activity Not lizeth Patient Position, OB Semi-Ramirez's Baby A FHR Baseline: 135 bpm FHR Baseline Variability: Moderate variability FHR Accelerations: Present FHR Deceleration: Absent FHR Interpretation Category: Category One FHR Monitoring Method: External US transducer Activity Status ADL Awake Breakfast Percent 100 % Standard Safety Safety level maintained, Precautions maintained 10/07/2023 9:19 EST Lactated Ringers Injection Begin Bag 1,000 mL mL 10/07/2023 9:00 EST Uterine Contraction Monitoring Method External toco Uterine Contraction Frequency Occ Uterine Contraction Duration 30 sec Uterine Contraction Intensity, Ext Palp Not palpable Uterine Resting Tone, External Soft Uterine Activity Occasional contractions Patient Position, OB Left tilt, Semi-Ramirez's Baby A FHR Baseline: 135 bpm FHR Baseline Variability: Moderate variability FHR Accelerations: Present FHR Monitoring Method: External US transducer Activity Status ADL Awake Standard Safety Safety level maintained, Precautions maintained 10/07/2023 8:27 EST Notify date/time 10/07/2023 8:21 Provider Notified ANTONIO BRIZUELA Notification Method Phone Information Communicated Bedside blood glucose result(s) Details Communicated Notified of fasting blood sugar 111 Notification Outcome Orders not received Person Reporting Result(s) Jessica Vu Rn Results Read Back Yes 10/07/2023 8:25 EST Ed-Plan of Care Verbalizes/Nonverbally indicates understanding Ed-Safety, Fall Verbalizes/Nonverbally indicates understanding Individuals Taught Patient Learning Readiness Willing to learn Barriers to Learning None evident Teaching Method Explanation Preferred Spoken Language Jordanian Preferred Written Language Jordanian Family/Caregiver Prefer Spoken Language Jordanian Family/Caregiver Prefer Written Language Jordanian Ed- Monitoring Verbalizes/Nonverbally indicates understanding Ed-Contractions Verbalizes/Nonverbally indicates understanding Ed- Labor Verbalizes/Nonverbally indicates understanding Ed-LD Safety Verbalizes/Nonverbally indicates understanding Ed-Room Orientation Verbalizes/Nonverbally indicates understanding Able To Drink Order Detail Yes Able To Sign Consents Order Detail Yes Code Status Order Detail Full code IV Order Detail Yes Dialysis Schedule Order Detail N/A Has Diabetes Order Detail Yes Isolation Precautions Order Detail None Nurse Collect Order Detail 0 Oxygen Order Detail No Order Detail Yes Prior Valve Replacement Order Detail No Transport Mode Order Detail Ambulatory 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 Details Form 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 Details Form 10/07/2023 8:24 EST O-Remains Free From Injury Met Edu-Pain Management Verbalizes/Nonverbally indicates understanding Ed- Monitoring Verbalizes/Nonverbally indicates understanding Ed-Safety Verbalizes/Nonverbally indicates understanding Ed-Discharge instructions Needs further teaching Ed-Complications of Labor/Delivery Verbalizes/Nonverbally indicates understanding Ed-Patient/Caregiver about Hand Hygiene Done 10/07/2023 8:15 EST Blood Glucose, Capillary 111 mg/dL HI Blood Glucose Testing Reason Routine Blood Glucose Interventions Notify physician Temperature Oral 36.9 DegC Heart Rate Monitored 84 bpm Respiratory Rate 18 br/min Systolic Blood Pressure Non-Invasive 95 mmHg Diastolic Blood Pressure Non-Invasive 43 mmHg Blood Pressure Method Automatic Blood Pressure Location Left arm Blood Pressure Cuff Size Large Reason For Taking VItal Signs Routine Primary Pain Intensity 0 Pain Scale Type 0-10 Pain scale Heart Rhythm Regular Murmur Auscultated No Dorsalis Pedis Pulse, Left 2+ Normal Dorsalis Pedis Pulse, Right 2+ Normal Generalized Bilateral Edema Ratin+ trace/2mm Pedal edema Bilateral Edema Ratin+ trace/2mm Respirations Unlabored Respiratory Pattern Regular Breath Sounds Auscultated Anterior and posterior All Lobes Breath Sounds Clear, Equal Oxygen Therapy Room air Oxygen Saturation 99 % Abdomen Description Non-distended, Soft Bowel Continence Continent Swallowing Disorder None Bowel Sounds All Quadrants Present Tolerating Oral Intake Yes Urinary Elimination Voiding, no difficulties Bladder Distention Absent Uterine Contraction Monitoring Method External toco Uterine Contraction Intensity, Ext Palp Not palpable Uterine Resting Tone, External Soft Uterine Activity Not lizeth Patient Position, OB Left tilt, Semi-Ramirez's Baby A FHR Baseline: 135 bpm FHR Baseline Variability: Moderate variability FHR Accelerations: Present FHR Deceleration: Absent FHR Interpretation Category: Category One FHR Monitoring Method: External US transducer Patient Coping Loli w/stresses of , care Support Person Not present Patient feelings/concerns Discusses care, feelings, concerns Skin Temperature Warm Skin Description [place], Dry Skin Integrity Intact, Pressure points intact Sensory Perception Dioni No impairment Moisture Dioni Rarely moist Activity Dioni Walks occasionally Mobility Dioni No limitations Nutrition Dioni Adequate Friction and Shear Dioni No apparent problem Dioni Score 21 Hospital Acquired Pressure Injury Risk None/minimal risk (score 19-23) Antecubital Right 10/06/2023 18 gauge Peripheral IV Activity: Assessed Peripheral IV Dressing Condition: Clean, Dry, Intact Peripheral IV Dressing Activity: Transparent dressing Peripheral IV Line Status/Patency: Continuous infusion Peripheral IV Site Condition: No complications Peripheral IV Equipment: IV Pump, PRN Adaptor Neurological Symptoms Patient denies Level of Consciousness Alert Strength All Extremities Strong Tone All Extremities Normal Melendrez Screen Daily History of Fall in Last 3 Months Melendrez No Presence of Secondary Diagnosis Melendrez No Use of Ambulatory Aid Melendrez None, bedrest, wheelchair, nurse IV/PRN Adapter Fall Risk Melendrez Yes Gait Weak or Impaired Fall Risk Melendrez Normal, bedrest, immobile Mental Status Fall Risk Melendrez Oriented to own ability Melendrez Fall Risk Score 20 Violence Risk Confused No Violence Risk Irritable No Violence Risk Boisterous No Violence Risk Verbal Threats No Violence Risk Physical Threats No Violence Risk Attacking Objects No Violence Risk Predictor Score 0 Violence Risk Intervention None Violence Risk Current Interventions None Affect/Behavior Appropriate, Calm, Cooperative Appearance Clean Orientation Oriented x 4 Orientation Assessment Oriented x 4 Memory Recall Ability Current season, Location of own room, Staff names and faces Positioning Repositions self Activity Status ADL Awake Hair Care Independent Oral Care Independent Maddi Care Independent Nurse Safety Checks q2hrs Performed 7am-7pm Standard Safety ID band on, Allergy Band on, Call device within reach, Bed in low position, Wheels locked, Upper/Half-Length side-rails up, Phone within reach, personal items within reach, Safety level maintained, Non-Slip footwear, Precautions maintained Demonstrates Correct Call Light Use Yes RN Coordination of Care 7am-7pm Adaptive Feeding Equipment None Appetite Good Eating Difficulties None 10/07/2023 8:12 EST aspirin 81 mg mg 10/07/2023 8:00 EST Uterine Contraction Monitoring Method External toco Uterine Contraction Intensity, Ext Palp Not palpable Uterine Resting Tone, External Soft Uterine Activity Not lizeth Patient Position, OB Semi-Ramirez's Baby A FHR Monitoring Method: External US transducer Heart Tone: 135 10/07/2023 7:30 EST Nurse Receiving Report Jessica Vu RN Date/Time Nurse Received Report 10/07/2023 7:30 10/07/2023 7:07 EST Positioning Repositions self Activity Status ADL Resting Standard Safety Safety level maintained, Precautions maintained 10/07/2023 6:58 EST Uterine Contraction Monitoring Method External toco Uterine Contraction Intensity, Ext Palp Not palpable Uterine Resting Tone, External Soft Uterine Activity Not lizeth Patient Position, OB Left tilt Baby A FHR Baseline: 135 bpm FHR Baseline Variability: Moderate variability FHR Accelerations: Present FHR Deceleration: Absent FHR Monitoring Method: External US transducer 10/07/2023 6:00 EST Uterine Contraction Monitoring Method External toco Uterine Contraction Intensity, Ext Palp Not palpable Uterine Resting Tone, External Soft Uterine Activity Not lizeth Patient Position, OB Semi-Ramirez's Baby A FHR Baseline: 135 bpm FHR Baseline Variability: Moderate variability FHR Accelerations: Present FHR Deceleration: Absent FHR Monitoring Method: External US transducer 10/07/2023 5:00 EST Uterine Contraction Monitoring Method External toco Uterine Contraction Intensity, Ext Palp Not palpable Uterine Resting Tone, External Soft Uterine Activity Not lizeth Patient Position, OB Semi-Ramirez's Baby A FHR Baseline: 130 bpm FHR Baseline Variability: Moderate variability FHR Accelerations: Present FHR Deceleration: Absent FHR Monitoring Method: External US transducer 10/07/2023 4:52 EST Temperature Oral 36.9 DegC Heart Rate Monitored 92 bpm Respiratory Rate 20 br/min Systolic Blood Pressure Non-Invasive 103 mmHg Diastolic Blood Pressure Non-Invasive 45 mmHg Reason For Taking VItal Signs Routine Primary Pain Intensity 0 Pain Scale Type 0-10 Pain scale Heart Rhythm Regular Oxygen Therapy Room air Oxygen Saturation 97 % Antecubital Right 10/06/2023 18 gauge Peripheral IV Activity: Assessed Peripheral IV Dressing Condition: Clean, Dry, Intact Peripheral IV Dressing Activity: Transparent dressing Peripheral IV Line Status/Patency: Continuous infusion Peripheral IV Site Condition: No complications Peripheral IV Equipment: IV Pump Neurological Symptoms Patient denies Strength All Extremities Strong Tone All Extremities Normal Positioning Repositions self Activity Status ADL Sleeps intermittently Standard Safety Safety level maintained, Precautions maintained 10/07/2023 4:00 EST Uterine Contraction Monitoring Method External toco Uterine Contraction Intensity, Ext Palp Not palpable Uterine Resting Tone, External Soft Uterine Activity Not lizeth Patient Position, OB Right lateral Baby A FHR Baseline: 120 bpm FHR Baseline Variability: Moderate variability FHR Accelerations: Present FHR Deceleration: Absent FHR Monitoring Method: External US transducer 10/07/2023 3:02 EST Uterine Contraction Monitoring Method External toco Uterine Contraction Intensity, Ext Palp Not palpable Uterine Resting Tone, External Soft Uterine Activity Not lizeth Patient Position, OB Right lateral Baby A FHR Baseline: 130 bpm FHR Baseline Variability: Marked variability FHR Accelerations: Present FHR Deceleration: Absent FHR Monitoring Method: External US transducer 10/07/2023 2:58 EST Positioning Repositions self Activity Status ADL Resting, Watching TV Standard Safety Safety level maintained, Precautions maintained 10/07/2023 2:36 EST Patient Position, OB Right lateral 10/07/2023 2:00 EST Uterine Contraction Monitoring Method External toco Uterine Contraction Intensity, Ext Palp Not palpable Uterine Resting Tone, External Soft Uterine Activity Not lizeth Baby A FHR Baseline: 130 bpm FHR Baseline Variability: Moderate variability FHR Accelerations: Present FHR Deceleration: Absent FHR Monitoring Method: External US transducer Antecubital Right 10/06/2023 18 gauge Peripheral IV Activity: Assessed Peripheral IV Dressing Condition: Clean, Dry, Intact Peripheral IV Dressing Activity: Transparent dressing Peripheral IV Line Status/Patency: Continuous infusion Peripheral IV Site Condition: No complications Peripheral IV Equipment: IV Pump Positioning Repositions self Activity Status ADL Awake, Watching TV Standard Safety Safety level maintained, Precautions maintained 10/07/2023 0:58 EST Uterine Contraction Monitoring Method External toco Uterine Contraction Intensity, Ext Palp Not palpable Uterine Resting Tone, External Soft Uterine Activity Not lizeth Patient Position, OB Right tilt Baby A FHR Baseline: 140 bpm FHR Baseline Variability: Moderate variability FHR Accelerations: Present FHR Deceleration: Absent FHR Interpretation Category: Category One FHR Monitoring Method: External US transducer Positioning Repositions self Activity Status ADL Sleeps intermittently Standard Safety Safety level maintained, Precautions maintained 10/07/2023 0:13 EST O-Remains Free From Injury Met Edu-Pain Management Verbalizes/Nonverbally indicates understanding Ed- Monitoring Verbalizes/Nonverbally indicates understanding Ed-Safety Verbalizes/Nonverbally indicates understanding Ed-Discharge instructions Verbalizes/Nonverbally indicates understanding Ed-Complications of Labor/Delivery Verbalizes/Nonverbally indicates understanding Ed-Patient/Caregiver about Hand Hygiene Done Able To Drink Order Detail Yes Able To Sign Consents Order Detail Yes Code Status Order Detail Full code IV Order Detail Yes Dialysis Schedule Order Detail N/A Has Diabetes Order Detail Yes Isolation Precautions Order Detail None Nurse Collect Order Detail 0 Oxygen Order Detail No Order Detail Yes Prior Valve Replacement Order Detail No Transport Mode Order Detail Ambulatory 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 Details Form 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 Details Form 10/07/2023 0:08 EST Temperature Oral 36.9 DegC Heart Rate Monitored 106 bpm HI Respiratory Rate 20 br/min Systolic Blood Pressure Non-Invasive 106 mmHg Diastolic Blood Pressure Non-Invasive 45 mmHg Reason For Taking VItal Signs Routine Primary Pain Intensity 0 Pain Scale Type 0-10 Pain scale Heart Rhythm Regular Murmur Auscultated No Dorsalis Pedis Pulse, Left 2+ Normal Dorsalis Pedis Pulse, Right 2+ Normal Generalized Bilateral Edema Ratin+ trace/2mm Pedal edema Bilateral Edema Ratin+ trace/2mm Respirations Unlabored Respiratory Pattern Regular All Lobes Breath Sounds Clear, Equal Cough None Oxygen Therapy Room air Oxygen Saturation 99 % Abdomen Description Non-distended, Soft, Rounded Swallowing Disorder None Bowel Sounds All Quadrants Present Urinary Elimination Voiding, no difficulties Uterine Contraction Monitoring Method External toco Uterine Contraction Intensity, Ext Palp Not palpable Uterine Resting Tone, External Soft Uterine Activity Not lizeth Patient Position, OB Left tilt, Semi-Ramirez's Baby A FHR Baseline: 150 bpm FHR Baseline Variability: Moderate variability FHR Accelerations: Present FHR Deceleration: Absent FHR Interpretation Category: Category One FHR Monitoring Method: External US transducer Support Person Not present Patient feelings/concerns Discusses care, feelings, concerns Skin Temperature Warm Skin Description Bunnlevel, Dry Skin Integrity Intact Sensory Perception Dioni No impairment Moisture Dioni Rarely moist Activity Dioni Walks frequently Mobility Dioni No limitations Nutrition Dioni Adequate Friction and Shear Dioni No apparent problem Dioni Score 22 Hospital Acquired Pressure Injury Risk None/minimal risk (score 19-23) Antecubital Right 10/06/2023 18 gauge Peripheral IV Activity: Assessed Peripheral IV Dressing Condition: Clean, Dry, Intact [facility] [id number] Maternal and medicine Consult note MATERNAL MEDICINE REVIEW Consult Referral from: [facility] Patient of [place] [employer] Admitted on -October 07, 2023 HOSPITAL COURSE Synopsis of my initial review on October 07, 2023: She is 23 years of age 3 para 0 with TRIP of 11/21/2023 by early imaging study. She is presently 33 weeks and 4 days and transport. From [facility] on account of concern for oligohydramnios that has been unresponsive to overnight IV hydration. premature rupture membranes was excluded with negative paper test and scan was not done. She does complain of increased vaginal discharge. Her biophysical profile this morning was 10 out of 10 albeit with bili 2 x 2 centimeter pocket and ALIYA in the range of 3 cm. Her most recent ultrasound done on September 26, 2023 at 32 weeks 0 days was AGA fetus and thus no growth restriction. Review of Obstetric Symptoms: movement-plentiful. H/O contractions-none perceived. H/O leakage of fluid vaginally-possible. H/O vaginal bleeding-none. H/O headaches-none. H/O vision changes -none. H/O abdominal pain and in particular right upper-none. H/O nausea or emesis-none. H/O diarrhea-none Review of General Symptoms: H/O chills-none. H/O feeling feverish-none. H/O achiness-none. History of arthralgias-none. H/O rashes-none. Tests: Heart Rate Strip: Review of the strip- It reveals it to have normal rate and baseline variability with occasional reactivity and absence of decelerations. No notable uterine activity. Interpretation: Presently adequately reassuring. Laboratory Assays: Interpretation of below laboratory assays: As in assessment Labs for history of nonalcoholic fatty liver ordered and are pending along with CBC. Maternal Vitals: Interpretation: Presently adequately stable Vitals Signs(Last 24 hrs)__Last Charted Minimum Maximum Temp36.8(OCT 07 16:22)36.8(OCT 07 16:22)37.1(OCT 07 15:01) Heart RateH 108(OCT 07 16:22)H 108(OCT 07 16:22)H 108(OCT 07 16:22) Resp Rate16(OCT 07 16:22)16(OCT 07 16:22)16(OCT 07 16:22) EKV870(OCT 07 16:22)132(OCT 07 16:22)132(OCT 07 16:22) DBP86(OCT 07 16:22)86(OCT 07 16:22)86(OCT 07 16:22) Ultrasound Based Assessments: Ultrasound 09/26/2023 done by [facility] in office Anatomy: Normal anatomy. Hilda breech at that imaging study Biometrics: EFW 1992 grams at 49% and the AC is at 24%. . Amniotic Fluid-normal at 6.6 Interpretation: Normal ASSESSMENTS and RECOMMENDATIONS Today: 10/07/2023, she is 33 weeks 4 days. TRIP: 11/21/2023 Principal Reason for Admission: Oligohydramnios-recent ultrasound AGA fetus and prematurerupture membranes will be further excluded = Patient Education at initial review: Her current status was reviewed with the patient, includingthe developed care plan. Q/A opportunity was provided = Medications: PVD 1 QD . Low-dose aspirin . S/p initial dose of Celestone yesterday and second dose received today . She takes Vistaril on a needed basis for anxiety = Lab Orders: Liver function test and CBC = Monitoring: Every shift NST and if recurrent variable decelerations, decide for clinical decision to delivery or repeat BPP/UA CD to ensure stability of the fetus. BPP tomorrow = Consults: Neonatology and Anesthesia = Status Today: She is stable. premature rupture membranes will be excluded. Ongoing expectant management is appropriate. Obstetric goal for expectant management to see if ALIYA improves with IV hydration over 48 hours and anticipate it will as he appears to be no reason to suspect placental insufficiency and premature membranes to be more rigorously excluded Past Obstetric History: Nulliparous Other Comorbidities: (a). BMI class III. (b). GDM A1 and prior to has history of PCOS and metformin was discontinued and subsequently she was diagnosed to have GDM A1 and has been on dietand had excellent diabetic control with no abnormal values 4 weeks and that she just continue testing and we discussed the importance of recommencing it as GDM A1 is a potentially progressive diseaseas a placental mass increases. Additionally it may be presently in jeopardy due to the course of corticosteroids given for oligohydramnios. (c). History of nonalcoholic metabolic fatty liver most likely is secondary to BMI. (d) anxiety and presently on no treatment. (e) history of abbreviated cervical and and on vaginal progesterone and discussed she is stable. Care: Initial and interval laboratory assays review as per resident note. She is Rh- and received RhoGAM earlier in on account of spotting and has since done well. I have seen and evaluated the patient. I have obtained the best portion of the history and physical examination as stated above. I have discussed the patient with the resident. I have reviewed the resident's documentation and agree with it. The medical decision making was done together with the resident and is also documented in resident note. Patient Care Coordination Discussions: To synchronize multi-disciplinary care, I have personally reviewed patient's progress with the L&D care team. Billing Status: Subsequent Inpatient- FIDE (Medical Complexity in Decision) based - MEDIUM COMPLEXITY Manju Benítez MD., FACOG Maternal Medicine Digitally Signed by INDU BENÍTEZ MD on 10/07/2023 05:[address] [facility] [id number] Note. MICRO - Microbiology PROCEDURE: Affirm Pathogens DNA Direct Probe [*1] SOURCE: Vaginal Fluid BODY SITE: Vagina COLLECTED DATE/TIME: 09/18/2023 15:54 EDT RECEIVED DATE/TIME: 09/19/2023 20:04 EDT START DATE/TIME: 09/19/2023 20:04 EDT FREE TEXT SOURCE: FINAL REPORTS Final Report [] Verified Date/Time/Personnel: 09/20/2023 10:20 EDT Evans species DNA Probe Negative Gardnerella vaginalis DNA Probe Negative Trichomonas vaginalis DNA Probe Negative Performing Locations *1: This test was performed at: [facility], [address] [place] [address], [facility] , [facility] ([place])09-14-2023 Hospital Discharge instructions Patient Education 09/14/2023 08:05:06 Labor and Information Labor and Information The normal length of a is 39 41 weeks. labor is when labor starts before 37 completed weeks of . What are the risk factors for labor? labor is more likely to occur in women who: Have certain infections during such as a bladder infection, sexually transmitted infection, or infection inside the uterus (chorioamnionitis). Have a [id number] cervix. Have gone into labor before. Have had surgery on their cervix. Are younger than age 17 or older than age 35. Are . Are with twins or multiple babies (multiple gestation). Take street drugs or smoke while . Do not gain enough weight while . Became shortly after having been . What are the symptoms of labor? Symptoms of labor include: Cramps similar to those that can happen during a menstrual period. The cramps may happen with diarrhea. Pain in the abdomen or lower back. Regular uterine contractions that may feel like tightening of the abdomen. A feeling of increased pressure in the pelvis. Increased watery or bloody mucus discharge from the vagina. Water breaking (ruptured amniotic sac). Why is it important to recognize signs of labor? It is important to recognize signs of labor because babies who are born prematurely may notbe fully developed. This can put them at an increased risk for: Long-term (chronic) heart and lung problems. Difficulty immediately after with regulating body systems, including blood sugar, body temperature, heart rate, and breathing rate. Bleeding in the brain. Cerebral palsy. Learning difficulties. . These risks are highest for babies who are born before 34 weeks of . How is labor treated? Treatment depends on the length of your , your condition, and the health of your baby. It may involve: Having a stitch (suture) placed in your cervix to prevent your cervix from opening too early (cerclage). Taking or being given medicines, such as: ?Hormone medicines. These may be given early in to help support the . ?Medicine to stop contractions. ?Medicines to help mature the baby s lungs. These may be prescribed if the risk of delivery is high. ?Medicines to prevent your baby from developing cerebral palsy. If the labor happens before 34 weeks of , you may need to stay in the hospital. What should I do if I think I am in labor? If you think that you are going into labor, call your health care provider right away. How can I prevent labor in future pregnancies? To increase your chance of having a full-term : Do not use any tobacco products, such as cigarettes, chewing tobacco, and e- cigarettes. If you needhelp quitting, ask your health care provider. Do not use street drugs or medicines that have not been prescribed to you during your . Talk with your health care provider before taking any herbal supplements, even if you have been taking them regularly. Make sure you gain a healthy amount of weight during your . Watch for infection. If you think that you might have an infection, get it checked right away. Make sure to tell your health care provider if you have gone into labor before. This information is not intended to replace advice given to you by your health care provider. Make sure you discuss any questions you have with your health care provider. Document Released: 01/26/2005 Document Revised: 02/28/2020 Document Reviewed: 03/29/2017 [employer] Patient Education 2020 [employer]. Follow Up Care 09/14/2023 02:55:39 With:ETHEL MARTE MD Address: [address] [place] [address] [place] [address]- [phone] When: Unknown Comments:please followup as scheduled for office appointments and ultrasounds [facility] 10-22-2023 Hospital Discharge instructions Patient Education 09/10/2023 13:54:57 Viral Syndrome (Adult) Viral Syndrome (Adult) A viral illness may cause a number of symptoms such as fever. Other symptoms depend on the part of the body that the virus affects. If it settles in your nose, throat, and lungs, it may cause cough, sore throat, congestion, runny nose, headache, earache and other ear symptoms, or shortness of breath. If it settles in your stomach and intestinal tract, it may cause nausea, vomiting, cramping, and diarrhea. Sometimes it causes generalized symptoms like aching all over, feeling tired, loss of energy, or loss of appetite. A viral illness usually lasts anywhere from several days to several weeks, but sometimes it lasts longer. In some cases, a more serious infection can look like a viral syndrome in the first few days of the illness. You may need another exam and additional tests to know the difference. Watch for thewarning signs listed below for when to seek medical advice. Home care Follow these guidelines for taking care of yourself at home: If symptoms are severe, rest at home for the first 2 to 3 days. Stay away from cigarette smoke - both your smoke and the smoke from others. You may use egul-kwd-zpfnpaw acetaminophen or ibuprofen for fever, muscle aching, and headache, unless another medicine was prescribed for this. If you have chronic liver or kidney disease or ever had a stomach ulcer or gastrointestinal bleeding, talk with your healthcare provider before using these medicines. No one who is younger than 18 and ill with a fever should take aspirin. It may cause severe disease or . Your appetite may be poor, so a light diet is fine. Avoid dehydration by drinking 8 to 12, 8-ounce glasses of fluids each day. This may include water; orange juice; lemonade; apple, grape, and cranberry juice; clear fruit drinks; electrolyte replacement and sports drinks; and decaffeinated teas andcoffee. If you have been diagnosed with a kidney disease, ask your healthcare provider how much andwhat types of fluids you should drink to prevent dehydration. If you have kidney disease, drinking too much fluid can cause it build up in the your body and be dangerous to your health. Ajnw-zqb-yxpskmn remedies won't shorten the length of the illness but may be helpful for symptoms such as cough, sore throat, nasal and sinus congestion, or diarrhea. Don't use decongestants if you have high blood pressure. Follow-up care Follow up with your healthcare provider if you do not improve over the next week. Call 911 Call 911 if any of the following occur: Convulsion Feeling weak, dizzy, or like you are going to faint Chest pain, or more than mild shortness of breath When to seek medical advice Call your healthcare provider right away if any of these occur: Cough with lots of colored sputum (mucus) or blood in your sputum Chest pain, shortness of breath, wheezing, or trouble breathing Severe headache; face, neck, or ear pain Severe, constant pain in the lower right side of your belly (abdominal) Continued vomiting (can t keep liquids down) Frequent diarrhea (more than 5 times a day); blood (red or black color) or mucus in diarrhea Feeling weak, dizzy, or like you are going to faint Extreme thirst Fever of 100.4 F (38 C) or higher, or as directed by your healthcare provider [phone] [employer]. [address] [place] [address]. All rights reserved. This information is not intended as a substitute for professional medical care. Always follow yourhealthcare professional's instructions. 09/10/2023 13:54:30 Diet for Vomiting or Diarrhea (Adult) Diet for Vomiting or Diarrhea (Adult) Your symptoms may return or get worse after eating certain foods listed below. If this happens, stop eating these foods until your symptoms ease and you feel better. Once the vomiting stops, follow the steps below. During the first 12 to 24 hours During the first 12 to 24 hours, follow this diet: Drinks. Plain water, sport drinks like electrolyte solutions, soft drinks without caffeine, mineralwater (plain or flavored), clear fruit juices, and decaffeinated tea and coffee. Soups. Clear broth. Desserts. Plain gelatin, popsicles, and fruit juice bars. As you feel better, you may add 6 to 8 ounces of yogurt per day. If you have diarrhea, don't have foods or drinks that contain sugar, high-fructose corn syrup, or sugar alcohols. During the next 24 hours During the next 24 hours you may add the following to the above: Hot cereal, plain toast, bread, rolls, and crackers Plain noodles, rice, mashed potatoes, and chicken noodle or rice soup Unsweetened canned fruit (but not pineapple) and bananas Don't eat more than 15 grams of fat a day. Do this by staying away from margarine, butter, oils, mayonnaise, sauces, gravies, fried foods, peanut butter, meat, poultry, and fish. Don't eat much fiber. Stay away from raw or cooked vegetables, fresh fruits (except bananas), and bran cereals. Limit how much caffeine and chocolate you have. Do not use any spices or seasonings except salt. During the next 24 hours Slowly go back to your normal diet, as you feel better and your symptoms ease. [phone] [employer] [place] [address], [place] [address]. All rights reserved. This information is not intended as a substitute for professional medical care. Always follow yourhealthcare professional's instructions. Follow Up Care 09/10/2023 12:28:01 With:Go to emergency room if symptoms worsen Address:Unknown When:2-4 days With:BARRY REEVES MD Address: [address] [place] [address] [phone] When:2-4 days [facility] 10-22-2023 Note Discharge Instructions Thank you for allowing [facility] to assist you with your healthcare needs. The following is importantdischarge information regarding your hospital visit. Diagnosis from Today's Visit Vomiting - What to Do Next Instructions from Your Care Team Discharge Return to Work, School, or Sports (Return to Work, School, or Sports) - Ordered -- 09/11/23, May return to: work, 09/10/23 13:55:00 EDT Post Acute Orders No qualifying data available. You Need to Schedule the Following Appointments Follow Up with Go to emergency room if symptoms worsen When Within 2-4 days Follow Up with BARRY REEVES MD When Within 2-4 days Where: [address] [place] [address] [phone] Allergies Imitrex Medications Please ask your primary doctor or pharmacist before taking any other medication not listed, including over the counter drugs, herbal medications, vitamins and or supplements as they may interact withyour home medications. What How Much When Why Instructions Last Dose New ondansetron (Zofran 4 mg oral tablet) 1 tab(s) by mouth Every 8 hours as needed for Nausea/Vomiting Duration: 5 Days Printed Prescription Unchanged acetaminophen (Tylenol 325 mg oral capsule) 1 cap by mouth Every 6 hours Unchanged aspirin (aspirin 81 mg oral tablet, chewable) 1 tab(s) by mouth Every day Habitual aborter BMI 40.0-44.9, adult Unchanged calcium carbonate (Tums) 1,000 Milligram Chewed Once a day Unchanged DME (Alcohol Swabs) See instructions Gestational diabetes Check 4x/ Day.any brand covered. Unchanged DME (Blood Glucose Test Machine) See instructions Gestational diabetes Check 4x/ Day, fasting and 1 hour pp. any brand covered. Unchanged DME (Blood Glucose Test Strips) See instructions Gestational diabetes Check 4x/ Day. any brand covered Unchanged DME (Lancets) See instructions Gestational diabetes Check 4x/ Day Unchanged docusate (Dulcolax Stool Softener) 100 Milligram by mouth Two (2) times a day as needed for as needed for constipation Unchanged hydrOXYzine (Vistaril 25 mg oral capsule) 1 cap by mouth Four (4) times a day as needed for for anxiety Unchanged multivitamin, ( Multivitamins with Vitamin B Complex, Vitamin C, Minerals and L-Methylfolate oral capsule) 1 cap by mouth Every day Unchanged progesterone (progesterone 200 mg oral capsule) Please take this list to your next doctor s visit. Bring all medications you take, including over the counter medications, herbals and other supplements with you to your doctor s visit. Patients and families are reminded to discard old lists and to update any records with all medication providers or retail pharmacies. Education Materials Viral Syndrome (Adult) A viral illness may cause a number of symptoms such as fever. Other symptoms depend on the part of the body that the virus affects. If it settles in your nose, throat, and lungs, it may cause cough, sore throat, congestion, runny nose, headache, earache and other ear symptoms, or shortness of breath. If it settles in your stomach and intestinal tract, it may cause nausea, vomiting, cramping, and diarrhea. Sometimes it causes generalized symptoms like aching all over, feeling tired, loss of energy, or loss of appetite. A viral illness usually lasts anywhere from several days to several weeks, but sometimes it lasts longer. In some cases, a more serious infection can look like a viral syndrome in the first few days of the illness. You may need another exam and additional tests to know the difference. Watch for thewarning signs listed below for when to seek medical advice. Home care Follow these guidelines for taking care of yourself at home: If symptoms are severe, rest at home for the first 2 to 3 days. Stay away from cigarette smoke - both your smoke and the smoke from others. You may use rmxb-bdu-orshqtr acetaminophen or ibuprofen for fever, muscle aching, and headache, unless another medicine was prescribed for this. If you have chronic liver or kidney disease or ever had a stomach ulcer or gastrointestinal bleeding, talk with your healthcare provider before using these medicines. No one who is younger than 18 and ill with a fever should take aspirin. It may cause severe disease or . Your appetite may be poor, so a light diet is fine. Avoid dehydration by drinking 8 to 12, 8-ounce glasses of fluids each day. This may include water; orange juice; lemonade; apple, grape, and cranberry juice; clear fruit drinks; electrolyte replacement and sports drinks; and decaffeinated teas andcoffee. If you have been diagnosed with a kidney disease, ask your healthcare provider how much andwhat types of fluids you should drink to prevent dehydration. If you have kidney disease, drinking too much fluid can cause it build up in the your body and be dangerous to your health. Dmpd-xcn-nqusgkc remedies won't shorten the length of the illness but may be helpful for symptoms such as cough, sore throat, nasal and sinus congestion, or diarrhea. Don't use decongestants if you have high blood pressure. Follow-up care Follow up with your healthcare provider if you do not improve over the next week. Call 911 Call 911 if any of the following occur: Convulsion Feeling weak, dizzy, or like you are going to faint Chest pain, or more than mild shortness of breath When to seek medical advice Call your healthcare provider right away if any of these occur: Cough with lots of colored sputum (mucus) or blood in your sputum Chest pain, shortness of breath, wheezing, or trouble breathing Severe headache; face, neck, or ear pain Severe, constant pain in the lower right side of your belly (abdominal) Continued vomiting (can t keep liquids down) Frequent diarrhea (more than 5 times a day); blood (red or black color) or mucus in diarrhea Feeling weak, dizzy, or like you are going to faint Extreme thirst Fever of 100.4 F (38 C) or higher, or as directed by your healthcare provider [employer]. [address] [place] [address]. All rights reserved. This information is not intended as a substitute for professional medical care. Always follow yourhealthcare professional's instructions. Diet for Vomiting or Diarrhea (Adult) Your symptoms may return or get worse after eating certain foods listed below. If this happens, stop eating these foods until your symptoms ease and you feel better. Once the vomiting stops, follow the steps below. During the first 12 to 24 hours During the first 12 to 24 hours, follow this diet: Drinks. Plain water, sport drinks like electrolyte solutions, soft drinks without caffeine, mineralwater (plain or flavored), clear fruit juices, and decaffeinated tea and coffee. Soups. Clear broth. Desserts. Plain gelatin, popsicles, and fruit juice bars. As you feel better, you may add 6 to 8 ounces of yogurt per day. If you have diarrhea, don't have foods or drinks that contain sugar, high-fructose corn syrup, or sugar alcohols. During the next 24 hours During the next 24 hours you may add the following to the above: Hot cereal, plain toast, bread, rolls, and crackers Plain noodles, rice, mashed potatoes, and chicken noodle or rice soup Unsweetened canned fruit (but not pineapple) and bananas Don't eat more than 15 grams of fat a day. Do this by staying away from margarine, butter, oils, mayonnaise, sauces, gravies, fried foods, peanut butter, meat, poultry, and fish. Don't eat much fiber. Stay away from raw or cooked vegetables, fresh fruits (except bananas), and bran cereals. Limit how much caffeine and chocolate you have. Do not use any spices or seasonings except salt. During the next 24 hours Slowly go back to your normal diet, as you feel better and your symptoms ease. [employer]. [address] [place] [address], [place] [address]. All rights reserved. This information is not intended as a substitute for professional medical care. Always follow yourhealthcare professional's instructions. Additional Information VACCINATE! IT SAVES LIVES! Members of the community who have not yet received the COVID-19 vaccine and would like to receive it can visit one of [facility] vaccine clinics. There are many vaccine clinic locations within the [facility]. For locations and available times, please visit www.gettheshot.coronavirus.[place].gov/. It is important to note that some COVID mobile vaccine clinics are held outdoors and may be canceled in rainy or stormy conditions. To learn more about pediatric vaccinations (ages 5-11), we invite you to visit the [facility] webpage. [email or web address]/[email or web address]-Wgxcn-Mlmpcsneswm-Mrnqxwtube-Wtdbc-Cje stions.htmlTo learn more about the COVID-19 vaccine, we invite you to visit the CDC website for a list of frequently asked questions. https://www.cdc.gov/coronavirus/2019-ncov/vaccines/faq.html [facility] Patient Portal Access Instructions: Stay connected with your healthcare team and access your personal medical information anytime with the [facility] Patient Portal. If you would like a full copy of your medical records please contact the [facility] Medical Records Department Monday through Monday between 8a.m. and 4:30p.m. Please follow the directions below to access the portal: 1.Access the email account you provided upon registration to the [facility].2.Look for an invitation email from [facility].3.Open the email and access the invitation link: Accept Invitation to [facility]4.Fill in the required brown to create your account. Sign into www.[employer] with your username and password that you created in the above steps to stay up to date. You can then view a summary of results, a summary of your visits, and the ability to download your summaries to your computer or send the information securely to a physician. Remember that your healthcare information is confidential, so carefully consider who you will allow to register on the [facility] Patient Portal for access to your information. You can also access the [facility] Patient Portal on the [employer] [address]. Simply click on Health Records under [employer] and then click on the [employer] logo. HOW TO SAFELY DISPOSE OF PRESCRIPTION MEDICATIONS Please use one of the following methods to safely dispose of your unused medications. 1.Use a drug disposal kit: the drug disposal pouch allows you to safely discard your old and unuseddrugs. Ask your nurse to give you one when you are discharged.2.Visit a local take-back location: Many local pharmacies and police departments have programs that collect old and unwanted prescriptiondrugs. Call your local pharmacy or go to http://Sprig.[employer]/9C3Yt5s to find one close to you.3.Make use of household items: Use cat litter or old coffee grounds to dispose medications if other options arenot available. Mix your drugs with these household products, seal them in an airtight container andthrow it into the garbage. Call [facility]: [phone] to be sure your drugs can be disposed of in this way. Some medicines may require a different approach.4.Never flush your medications down the toilet. IF YOU HAVE BEEN PRESCRIBED AN OPIOIDS FOR PAIN If you have been prescribed an opioid (such as hydrocodone, oxycodone or morphine), it is critical to understand the possible side effects and risks of opioid pain medications. Even when taken as directed, opioids can have several side effects including: Tolerance, meaning you might need to take more of a medication for the same pain relief. Nausea, vomiting and/or constipation. Sleepiness, dizziness, dry mouth, confusion, depression or itching. Physical dependence, meaning you have withdrawal symptoms when a medication is stopped ? this can develop within a few days. KNOW YOUR RESPONSIBILITIES It is important to know exactly how much and how often to take the opioid pain medications you are prescribed. Never take opioids in higher amounts or more often than prescribed. Do not combine opioids with alcohol or other drugs that cause drowsiness, such as benzodiazepines, also known as benzos,including diazepam and alprazolam, muscle relaxants or sleep aids. Never sell or share prescriptionopioids. This is illegal. Store opioids in a secure place and out of reach of others (including children, family, friends and visitors). The last page(s) of this document has been signed and retained as a CHART COPY Signatures Patient Education Materials Viral Syndrome (Adult) Diet for Vomiting or Diarrhea (Adult) Medication Leaflets My discharge plan and instructions have been reviewed and explained to me and I,GLEN GABRIELLE Agarwal understand my current condition and have read and understand these discharge instructions. I have received a written copy of the plan/instructions. If I have questions, I am aware that I should contact my doctor. Patient/Surgical Assistant Certified Signature: Date/Time: Relationship to Patient: Witness Name/Signature: Date/Time: [facility]10-20-2023 History of Present illness Narrative * Pamela James PA-C - 09/08/2023 12:16 PM EDT This note was created using NoteWriter. Subjective Gabrielle Carroll is a 23 year old female. HPI Presents with cough, congestion over the past 2 days. She is 29 weeks . No abdominal pain, bleeding, vaginal discharge. She denies chest pain or shortness of breath. She has had body aches and headache as well. 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 She denies any known exposure to COVID but the residents have been sick recently. No exposure to influenza that she knows of. She has been using Tylenol zdnr-xfy-zowdsat. Review of Systems Constitutional: Positive for chills, fatigue and fever. HENT: Positive for congestion and sore throat. Negative for ear pain. Respiratory: Positive for cough. Cardiovascular: Negative. Gastrointestinal: Negative. Genitourinary: Negative. Musculoskeletal: Positive for myalgias. Neurological: Positive for headaches. All other systems reviewed and are negative. PAST MEDICAL HISTORY Diagnosis Date Headache NEGATIVE MEDICAL HISTORY Current Outpatient Medications Medication Sig Dispense Refill vit no.124/iron/folic ( VITAMIN ORAL) Take by mouth. albuterol HFA (PROAIR HFA) 90 mcg/actuation inhaler Inhale 2 Puffs as instructed every 4 hours as needed. 1 Each 0 aspirin 81 mg chewable tablet chew 1 (ONE) tablet BY MOUTH ONCE DAILY progesterone micronized (PROMETRIUM) 200 mg capsule Take 400 mg by mouth. metFORMIN ER (GLUCOPHAGE XR) 500 mg 24 hr tablet Take 1 tablet by mouth once daily. (Patient not taking: Reported on 07/01/2023) 90 tablet 3 No current facility-administered medications for this visit. PAST SURGICAL HISTORY Procedure Laterality Date PAST SURGICAL HISTORY OF 2019 [place] teeth extracted TONSILLECTOMY AND ADENOIDECTOMY HX FAMILY HISTORY Problem Relation Age of Onset Cervical Cancer Sister Social History Tobacco Use Smoking status: Never Smokeless tobacco: Never Vaping Use Vaping Use: Never used Substance Use Topics Alcohol use: Never Drug use: Never Objective BP 124/80 Pulse (!) 122 Temp 37.1 C (98.8 F) (Tympanic) Resp 18 Wt 118.3 kg (260 lb 12.8 oz) LMP 06/03/2021 SpO2 98% BMI 46.20 kg/m Physical Exam Vitals reviewed. Constitutional: Appearance: Normal appearance. HENT: Head: Normocephalic and atraumatic. Right Ear: Tympanic membrane, ear canal and external ear normal. Left Ear: Tympanic membrane, ear canal and external ear normal. Nose: Congestion present. Mouth/Throat: Mouth: Mucous membranes are moist. Pharynx: Posterior oropharyngeal erythema present. No oropharyngeal exudate. Cardiovascular: Rate and Rhythm: Normal rate and regular rhythm. Heart sounds: Normal heart sounds. Pulmonary: Effort: Pulmonary effort is normal. Breath sounds: Normal breath sounds. Musculoskeletal: Cervical back: Neck supple. Lymphadenopathy: Cervical: No cervical adenopathy. Skin: General: Skin is warm and dry. Neurological: Mental Status: She is alert. Assessment and Plan ASSESSMENT/PLAN: 1. Viral illness - ICD9: 079.99, ICD10: B34.9 - Discussed viral etiology and rationale for treatment. - Rapid strep negative in office today - Symptomatic treatment with prn analgesia - Supportive care with fluids and rest - Follow up in 3-5 days if symptoms persist or sooner if worsening of symptoms -Influenza PCR negative here in office. - INFLUENZA A&B MOLECULAR (POC) - STREP A MOLECULAR (POC) - COVID NAAT, UPPER RESPIRATORY, ROUTINE Pamela James PA-C [facility] Discharge instructions Patient Education 08/10/2023 17:30:49 [place] [facility] Outpatient Instructions (AORN) [facility] OUT[facility] HOME-GOING INSTRUCTIONS _X_ You are to follow up with your physician in ___ days/weeks. ACTIVITY ___ Bedrest ___Activity as tolerated ___ No work/school for ___ days. ___Other PRESCRIPTION GIVEN ___Yes NAUSEA/VOMITING ___ Take small, frequent amounts of clear liquids. Avoid fruit juices and milk. ___ Increase fluid intake to a minimum of 8 ounces of fluid every hour while awake. ___ Soft diet. Rice, crackers, bananas, Jell-O, cooked carrots, applesauce. ___ [place] diet. Avoid caffeine, chocolate, alcohol, spiced/greasy foods. URINARY TRACT INFECTION ___ Drink 8-12 glasses of water every day. ___ Urinate frequently; do not limit fluids to reduce frequency of urination. ___ Call your physician if burning and frequency with urination returns after taking all your medication. ___ Call your physician if you have a temperature of 100.4 degrees Fahrenheit or higher. ___ Wipe from front to back. SIGNS OF PRE-ECLAMPSIA ___ Severe heartburn. ___ Persistent headache not relieved by Tylenol. ___ Increased in swelling of face, hands and feet. ___ Blurred vision, double vision, or spots in the eyes. ___ Persistent vomiting. ___ *Convulsions or seizures. LABOR ___ Restrict activity. ___ Drink 8-12 glasses of water every day. ___ Urinate frequently ___ Pelvic rest. No sexual intercourse/ Call your physician if you experience: ___ Increase in vaginal discharge, leaking fluid, or vaginal bleeding. ___ More than 4, 5, or 6 contractions in one hour. ___ Burning and frequency with urination. DECREASED MOVEMENT ___ Lie down on your left side, drink some fluids and relax. Count the movements. You need tohave 10 movements in 2 hours. ___ If you do not feel the 10 movements, call your physician. OTHER ___ After an exam you may experience some spotting or discharge. As long as it is not bright red and heavy like a period or continues to leak as if your water broke, it is to be expected. ___ LABOR Call your physician if you experience: ___ Painful uterine contractions every ___ minutes for ___ hours. ___A gush or continuous trickle of watery discharge. COME TO THE HOSPITAL AND CALL PHYSICIAN IF: ___ Your abdomen feels continually firm. ___ *Bleeding is bright red and enough to saturate a pad in one hour or less. *Call 911 or go to the nearest Emergency Room for assistance. Form [id number] D: 10/28 Follow Up Care 08/10/2023 16:37:33 With:KAITLIN CARROLL Address: [address] [place] [address] [place] [address] [phone] Business (1) When: Unknown [facility] 09-02-2023 Hospital Discharge instructions Patient Education 07/22/2023 20:55:14 7 - Labor and Delivery Outpatient Instructions (CUSTOM) [facility] OUTPATIENT HOME-GOING INSTRUCTIONS _X_ You are to follow up with your physician as scheduled. ACTIVITY ___ Bedrest _x__Activity as tolerated ___ No work/school for ___ days. ___Other PRESCRIPTION GIVEN _x__Yes NAUSEA/VOMITING ___ Take small, frequent amounts of clear liquids. Avoid fruit juices and milk. ___ Increase fluid intake to a minimum of 8 ounces of fluid every hour while awake. ___ Soft diet. Rice, crackers, bananas, Jell-O, cooked carrots, applesauce. ___ [place] diet. Avoid caffeine, chocolate, alcohol, spiced/greasy foods. URINARY TRACT INFECTION _x__ Drink 8-12 glasses of water every day. _x__ Urinate frequently; do not limit fluids to reduce frequency of urination. __x_ Call your physician if burning and frequency with urination returns after taking all your medication. __x_ Call your physician if you have a temperature of 100.4 degrees Fahrenheit or higher. __x_ Wipe from front to back. SIGNS OF PRE-ECLAMPSIA ___ Severe heartburn. ___ Persistent headache not relieved by Tylenol. ___ Increased in swelling of face, hands and feet. ___ Blurred vision, double vision, or spots in the eyes. ___ Persistent vomiting. ___ *Convulsions or seizures. LABOR ___ Restrict activity. ___ Drink 8-12 glasses of water every day. ___ Urinate frequently ___ Pelvic rest. No sexual intercourse/ Call your physician if you experience: _x__ Increase in vaginal discharge, leaking fluid, or vaginal bleeding. _x__ More than 4, 5, or 6 contractions in one hour. __x_ Burning and frequency with urination. DECREASED MOVEMENT _x__ Lie down on your left side, drink some fluids and relax. Count the movements. You need to have 10 movements in 2 hours. __x_ If you do not feel the 10 movements, call your physician. OTHER _x__ After an exam you may experience some spotting or discharge. As long as it is not bright red and heavy like a period or continues to leak as if your water broke, it is to be expected. ___ LABOR Call your physician if you experience: ___ Painful uterine contractions every ___ minutes for ___ hours. ___A gush or continuous trickle of watery discharge. COME TO THE HOSPITAL AND CALL PHYSICIAN IF: ___ Your abdomen feels continually firm. ___ *Bleeding is bright red and enough to saturate a pad in one hour or less. *Call 911 or go to the nearest Emergency Room for assistance. Form [id number] D: 10/28 Document Released: 11/06/2006 Document Revised: 10/25/2012 Document Reviewed: 11/06/2006 [facility] Patient Information 2012 Rebls. Follow Up Care 07/22/2023 17:28:54 With:KAITLIN CARROLL Address: [address] [place] [address] [facility] [address] [phone] Business (1) When: Unknown Comments:Follow-up as scheduled [facility] 08-29-2023 Hospital Discharge instructions Patient Education 07/18/2023 07:50:37 7 - Labor and Delivery Outpatient Instructions(CUSTOM) [facility] OUTPATIENT HOME-GOING INSTRUCTIONS _X_ You are to follow up with your provider as needed. Call with any questions or concerns as needed, ACTIVITY ___ Bedrest _X__Activity as tolerated ___ No work/school for ___ days. ___Other PRESCRIPTION GIVEN ___Yes NAUSEA/VOMITING ___ Take small, frequent amounts of clear liquids. Avoid fruit juices and milk. ___ Increase fluid intake to a minimum of 8 ounces of fluid every hour while awake. ___ Soft diet. Rice, crackers, bananas, Jell-O, cooked carrots, applesauce. ___ [place] diet. Avoid caffeine, chocolate, alcohol, spiced/greasy foods. URINARY TRACT INFECTION ___ Drink 8-12 glasses of water every day. ___ Urinate frequently; do not limit fluids to reduce frequency of urination. ___ Call your physician if burning and frequency with urination returns after taking all your medication. ___ Call your physician if you have a temperature of 100.4 degrees Fahrenheit or higher. ___ Wipe from front to back. SIGNS OF PRE-ECLAMPSIA ___ Severe heartburn. ___ Persistent headache not relieved by Tylenol. ___ Increased in swelling of face, hands and feet. ___ Blurred vision, double vision, or spots in the eyes. ___ Persistent vomiting. ___ *Convulsions or seizures. LABOR ___ Restrict activity. ___ Drink 8-12 glasses of water every day. ___ Urinate frequently ___ Pelvic rest. No sexual intercourse/ Call your physician if you experience: _X__ Increase in vaginal discharge, leaking fluid, or vaginal bleeding. _X__ More than 4, 5, or 6 contractions in one hour. _X__ Burning and frequency with urination. DECREASED MOVEMENT ___ Lie down on your left side, drink some fluids and relax. Count the movements. You need tohave 10 movements in 2 hours. ___ If you do not feel the 10 movements, call your physician. OTHER ___ After an exam you may experience some spotting or discharge. As long as it is not bright red and heavy like a period or continues to leak as if your water broke, it is to be expected. ___ LABOR Call your physician if you experience: ___ Painful uterine contractions every ___ minutes for ___ hours. ___A gush or continuous trickle of watery discharge. COME TO THE HOSPITAL AND CALL PHYSICIAN IF: ___ Your abdomen feels continually firm. ___ *Bleeding is bright red and enough to saturate a pad in one hour or less. *Call 911 or go to the nearest Emergency Room for assistance. Form [id number] D: 10/28 Document Released: 11/06/2006 Document Revised: 10/25/2012 Document Reviewed: 11/06/2006 [facility] Patient Information 2012 Rebls. Follow Up Care 07/18/2023 04:52:01 With:ETHEL MARTE Address: [address] [place] [place] [address] [phone] Business (1) When: Unknown Comments:Follow-up as needed [facility] 07-05-2023 Hospital Discharge instructions Patient Education 05/24/2023 17:06:14 Bleeding During Early Bleeding During Early Ultrasound can help check the health of your fetus. If you ve had bleeding early in your , you re not alone. Many other women have had early bleeding, too. And in most cases, nothing is wrong. But your healthcare provider still needsto know about it. He or she may want to do tests to find out why you re bleeding. Call your healthcare provider if you notice bleeding during . What causes early bleeding? The cause of bleeding early in is often unknown. But many factors early on in may lead to bleeding or spotting. These include sexual intercourse, which may cause bleeding in any trimester. Here are some other causes: Implantation of the embryo on the uterine wall Subchorionic hemorrhage (bleeding between the sac membrane and the uterus) Miscarriage Ectopic (tubal) If you notice spotting Spotting (very light bleeding) is the most common type of bleeding in early . If you notice it, call your healthcare provider. Chances are, he or she will tell you that you can care for yourself at home. If tests are needed Depending on how much you bleed, your healthcare provider may ask you to come in for some tests. A pelvic exam, for instance, can help see how far along your is. You also may have an ultrasound or a Doppler test. These imaging tests use sound waves to check the health of your fetus. The ultrasound may be done on your belly or inside your vagina. Your healthcare provider also may order aspecial blood test. This test compares your hormone levels in blood samples taken 2 days apart. Theresults can help your healthcare provider learn more about the implantation of the embryo. Your blood type will also need to be checked to evaluate whether you will need to be treated for Rh sensitization. Warning signs If your bleeding doesn t stop or if you notice any of the following, seek medical help right away: Soaking a sanitary pad each hour Bleeding like you re having a period Cramping or severe belly pain Feeling dizzy or faint Tissue passing through your vagina Bleeding at any time after the first trimester Questions you may be asked Though not normal, bleeding early in is common. If you ve noticed any bleeding, you may be concerned. But keep in mind that bleeding alone doesn t mean something is wrong. Call your healthcare provider right away, though. He or she may ask you questions like these to help find the cause of your bleeding: When did your bleeding start? Is your bleeding very light (spotting) or is it like a period? Is the blood bright red or brownish? Have you had sexual intercourse recently? Have you had pain or cramping? Have you felt dizzy or faint? Monitoring your Bleeding will often stop as quickly as it began. Your may go on a normal path again. You may need to make a few extra visits. But you and your baby will most likely be fine. [phone] [employer] [place] [address]. All rights reserved. This information is not intended as a substitute for professional medical care. Always follow yourhealthcare professional's instructions. Follow Up Care 05/24/2023 13:49:52 With:SOCO CAMPUZANO MD Address: [address] [place] [address] [place] [address]- [phone] When:2-4 days [facility] 07-05-2023 Note Discharge Instructions Thank you for allowing [facility] to assist you with your healthcare needs. The following is importantdischarge information regarding your hospital visit. Diagnosis from Today's Visit Vaginal bleeding - < 20 wks What to Do Next Instructions from Your Care Team - Continue Tylenol as needed for pain -Call [facility] for follow-up within the week. -Presented back to the emergency department if there are any acute changes in symptoms No qualifying data available. Post Acute Orders No qualifying data available. You Need to Schedule the Following Appointments Follow Up with SOCO CAMPUZANO MD When Within 2-4 days Where: [address] [facility] [address] [facility] [address]- [phone] Allergies Imitrex Medications Please ask your primary doctor or pharmacist before taking any other medication not listed, including over the counter drugs, herbal medications, vitamins and or supplements as they may interact withyour home medications. What How Much When Why Instructions Last Dose Unchanged acetaminophen (Tylenol 325 mg oral capsule) 1 cap by mouth Every 6 hours Unchanged aspirin (aspirin 81 mg oral tablet, chewable) 1 tab(s) by mouth Every day Habitual aborter BMI 40.0-44.9, adult Unchanged metFORMIN (MetFORMIN (Eqv-Fortamet) 500 mg oral tablet, EXTENDED RELEASE) 1 tab(s) by mouth Once a day with evening meal Unchanged multivitamin, ( Multivitamins with Vitamin B Complex, Vitamin C, Minerals and L-Methylfolate oral capsule) 1 cap by mouth Every day Unchanged progesterone (Prometrium 200 mg oral capsule) 1 cap by mouth Once a day 6 weeks gestation of Habitual aborter Duration: 14 Days Unchanged promethazine (promethazine 25 mg oral tablet) 1 tab(s) by mouth Every 6 hours as needed for for nausea/vomiting Threatened miscarriage Nausea Duration: 5 Days Please take this list to your next doctor s visit. Bring all medications you take, including over the counter medications, herbals and other supplements with you to your doctor s visit. Patients and families are reminded to discard old lists and to update any records with all medication providers or retail pharmacies. Education Materials Bleeding During Early Ultrasound can help check the health of your fetus. If you ve had bleeding early in your , you re not alone. Many other women have had early bleeding, too. And in most cases, nothing is wrong. But your healthcare provider still needsto know about it. He or she may want to do tests to find out why you re bleeding. Call your healthcare provider if you notice bleeding during . What causes early bleeding? The cause of bleeding early in is often unknown. But many factors early on in may lead to bleeding or spotting. These include sexual intercourse, which may cause bleeding in any trimester. Here are some other causes: Implantation of the embryo on the uterine wall Subchorionic hemorrhage (bleeding between the sac membrane and the uterus) Miscarriage Ectopic (tubal) If you notice spotting Spotting (very light bleeding) is the most common type of bleeding in early . If you notice it, call your healthcare provider. Chances are, he or she will tell you that you can care for yourself at home. If tests are needed Depending on how much you bleed, your healthcare provider may ask you to come in for some tests. A pelvic exam, for instance, can help see how far along your is. You also may have an ultrasound or a Doppler test. These imaging tests use sound waves to check the health of your fetus. The ultrasound may be done on your belly or inside your vagina. Your healthcare provider also may order aspecial blood test. This test compares your hormone levels in blood samples taken 2 days apart. Theresults can help your healthcare provider learn more about the implantation of the embryo. Your blood type will also need to be checked to evaluate whether you will need to be treated for Rh sensitization. Warning signs If your bleeding doesn t stop or if you notice any of the following, seek medical help right away: Soaking a sanitary pad each hour Bleeding like you re having a period Cramping or severe belly pain Feeling dizzy or faint Tissue passing through your vagina Bleeding at any time after the first trimester Questions you may be asked Though not normal, bleeding early in is common. If you ve noticed any bleeding, you may be concerned. But keep in mind that bleeding alone doesn t mean something is wrong. Call your healthcare provider right away, though. He or she may ask you questions like these to help find the cause of your bleeding: When did your bleeding start? Is your bleeding very light (spotting) or is it like a period? Is the blood bright red or brownish? Have you had sexual intercourse recently? Have you had pain or cramping? Have you felt dizzy or faint? Monitoring your Bleeding will often stop as quickly as it began. Your may go on a normal path again. You may need to make a few extra visits. But you and your baby will most likely be fine. [phone] [employer]. [address] [place] [address]. All rights reserved. This information is not intended as a substitute for professional medical care. Always follow yourhealthcare professional's instructions. Additional Information VACCINATE! IT SAVES LIVES! Members of the community who have not yet received the COVID-19 vaccine and would like to receive it can visit one of [facility] vaccine clinics. There are many vaccine clinic locations within the [facility]. For locations and available times, please visit www.gettheshot.coronavirus.[place].gov/. It is important to note that some COVID mobile vaccine clinics are held outdoors and may be canceled in rainy or stormy conditions. To learn more about pediatric vaccinations (ages 5-11), we invite you to visit the [facility] webpage. https://www.[employer]ingss.org/pages/5993-Hlcax-Ersghsunwxa-Wqguzxhorf-Osgap-Fzc stions.htmlTo learn more about the COVID-19 vaccine, we invite you to visit the CDC website for a list of frequently asked questions. https://www.cdc.gov/coronavirus/2019-ncov/vaccines/faq.html [facility] Patient Portal Access Instructions: Stay connected with your healthcare team and access your personal medical information anytime with the [facility] Patient Portal. If you would like a full copy of your medical records please contact the [facility] Medical Records Department Monday through Monday between 8a.m. and 4:30p.m. Please follow the directions below to access the portal: 1.Access the email account you provided upon registration to the [facility].2.Look for an invitation email from [facility].3.Open the email and access the invitation link: Accept Invitation to [facility].Fill in the required brown to create your account. Sign into www.[employer] with your username and password that you created in the above steps to stay up to date. You can then view a summary of results, a summary of your visits, and the ability to download your summaries to your computer or send the information securely to a physician. Remember that your healthcare information is confidential, so carefully consider who you will allow to register on the [facility] Patient Portal for access to your information. You can also access the [facility] Patient Portal on the [employer] [address]. Simply click on Health Records under [employer] and then click on the [employer] logo. HOW TO SAFELY DISPOSE OF PRESCRIPTION MEDICATIONS Please use one of the following methods to safely dispose of your unused medications. 1.Use a drug disposal kit: the drug disposal pouch allows you to safely discard your old and unuseddrugs. Ask your nurse to give you one when you are discharged.2.Visit a local take-back location: Many local pharmacies and police departments have programs that collect old and unwanted prescriptiondrugs. Call your local pharmacy or go to http://Sprig.[employer]/7N7Sw2f to find one close to you.3.Make use of household items: Use cat litter or old coffee grounds to dispose medications if other options arenot available. Mix your drugs with these household products, seal them in an airtight container andthrow it into the garbage. Call [facility]: [phone] to be sure your drugs can be disposed of in this way. Some medicines may require a different approach.4.Never flush your medications down the toilet. IF YOU HAVE BEEN PRESCRIBED AN OPIOIDS FOR PAIN If you have been prescribed an opioid (such as hydrocodone, oxycodone or morphine), it is critical to understand the possible side effects and risks of opioid pain medications. Even when taken as directed, opioids can have several side effects including: Tolerance, meaning you might need to take more of a medication for the same pain relief. Nausea, vomiting and/or constipation. Sleepiness, dizziness, dry mouth, confusion, depression or itching. Physical dependence, meaning you have withdrawal symptoms when a medication is stopped ? this can develop within a few days. KNOW YOUR RESPONSIBILITIES It is important to know exactly how much and how often to take the opioid pain medications you are prescribed. Never take opioids in higher amounts or more often than prescribed. Do not combine opioids with alcohol or other drugs that cause drowsiness, such as benzodiazepines, also known as benzos,including diazepam and alprazolam, muscle relaxants or sleep aids. Never sell or share prescriptionopioids. This is illegal. Store opioids in a secure place and out of reach of others (including children, family, friends and visitors). The last page(s) of this document has been signed and retained as a CHART COPY Signatures Patient Education Materials Bleeding During Early Medication Leaflets My discharge plan and instructions have been reviewed and explained to me and I,GABRIELLE CARROLL V understand my current condition and have read and understand these discharge instructions. I have received a written copy of the plan/instructions. If I have questions, I am aware that I should contact my doctor. 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 [facility] March 26, 2023 3:55pm Note Date/Time March 26, 2023 1:30pm [facility] Medical Records Department [address] [place] [address] Emergency Department Summary 03/26/23 MR#: [id number] Acct: [id number] Name: GABRIELLE CARROLL Rep # :[id number] : 2000 22 From: Viet HARMON PCP: Dr. Barry Reeves MD Status:REG ER Location: ED HPI <FAUSTINO Li - Last Filed: 03/26/23 15:53> HPI - Female History of Present Illness Chief Complaint: Vag Bld, Preg Narrative Narrative: Patient is a 22-year-old female with history of PCOS, multiple miscarriages. Patient is a 3 para 0 abortions 2. Patient's had 2 miscarriages last 21 July 2022. Patient presents to the emergency department for vaginal bleeding that was heavier last evening, minimal pain. She is 5 to 6 weeks . She is a negative, so she knows that when she bleeds, concerning for miscarriage she needs RhoGAM. She states that she is here for the blood work, she does not want a ultrasound. She does have an ultrasound scheduled for Monday this upcoming week which is in 3 days. She denies any specific abdominal pain, no fever chills nausea or vomiting. PFSH <FAUSTINO Li - Last Filed: 03/26/23 15:53> [facility] Medical History Enlarged liver Home Medications prenat.vits,jessi,vgm-bcxv-lzlro 1 tab PO DAILY 12/29/21 [History Last Taken Unknown] aspirin 81 mg tablet,delayed release 81 mg PO DAILY 03/26/23 [History Last Taken Unknown] folic acid 1 mg tablet 1 mg PO DAILY 03/26/23 [History Last Taken Unknown] metformin 500 mg tablet 500 mg PO DAILY 03/26/23 [History Last Taken Unknown] Allergy/AdvReac Type Severity Reaction Status Date / Time sumatriptan [From Imitrex] Allergy Rash Verified 03/26/23 13:15 Family History Grandmother Cancer Hypertension Surgical History Hx of tonsillectomy [place] teeth removed Social History household members: friend(s) Smoking Status: Never smoker alcohol intake: never substance use type: marijuana ROS <FAUSTINO Li - Last Filed: 03/26/23 15:53> ROS ED ROS Narrative Constitutional: Negative for fever, chills, weight loss, weakness Eyes: Negative for vision loss, vision change, double vision ENT: Negative for any sore throat, ear pain, congestion Cardiovascular: Negative for any chest pain, tightness, palpitations Respiratory: Negative for any cough, sputum production, hemoptysis, dyspnea, dyspnea on exertion, orthopnea Gastrointestinal: Negative for any abdominal pain, nausea, vomiting, diarrhea, constipation, blood in stool, blood in vomit : Negative for any urinary frequency, dysuria, retention, blood in urine. Positive for vaginal bleeding concern for miscarriage Muscle skeletal: Negative for any muscle joint pain, stiffness, myalgias, arthralgias, neck pain, back pain Neurological: Negative for any headache, syncope, numbness or tingling, dizziness Skin: Negative for any rashes, lumps, itching, abrasions, lacerations Psychiatric: Negative for any depression, anxiety, stress, suicidal ideation, homicidal ideation Hematologic: Negative for any easy bruising, excessive bruising, easy bleeding Allergies: Negative for any eczema, hives, rash EXAM <FAUSTINO Li - Last Filed: 03/26/23 15:53> Physical Exam Narrative Exam Narrative: Vital signs reviewed. HEET: Head normocephalic atraumatic, TMs clear bilaterally. Posterior pharynx is clear, moist mucous membranes. Nares clear bilaterally. Neck: Supple with no lymphadenopathy or tenderness. No signs of meningismus, negative jolt sign. Cardiac: Regular rate and rhythm no murmurs gallops or rubs, equal peripheral pulses bilaterally. Respiratory: Lungs clear to auscultation bilaterally. No chest tenderness. Abdomen: Soft, nontender, nondistended. No abdominal bruit or pulsatile masses. No hepatosplenomegaly Extremities: No peripheral edema, no signs of gross trauma or deformity. Activefull range of motion of all extremities. Neuro: Cranial nerves II through XII intact, no focal neurological deficits. Skin: Clean dry and intact with no rash, purpura, petechiae, vesicles or pustules. Backs/flank: No CVA tenderness, no midline spinal tenderness, no deformity. Psych: Normal mood and affect. No SI, HI or acute psychosis. : Deferred pelvic exam. No vaginal pain at this time. Const Vital Signs: 03/26/23 13:13 03/26/23 15:12 Temperature 97.5 F L Temperature Source Temporal Pulse Rate 80 Respiratory Rate 18 18 Blood Pressure 121/58 H Blood Pressure Mean 79 Pulse Ox 95 Oxygen Delivery Method Room Air Positive well nourished and well developed General Appearance ED: well developed <Dr. Deuce Levy, DO - Last Filed: 03/26/23 15:55> Physical Exam Const Vital Signs: 03/26/23 13:13 03/26/23 15:12 Temperature 97.5 F L Temperature Source Temporal Pulse Rate 80 Respiratory Rate 18 18 Blood Pressure 121/58 H Blood Pressure Mean 79 Pulse Ox 95 Oxygen Delivery Method Room Air MDM <FAUSTINO Li - Last Filed: 03/26/23 15:53> MDM Lab Data Labs: Laboratory Results - last 24 hr 03/26/23 03/26/23 03/26/23 13:35 13:35 13:35 WBC 9.4 RBC 4.40 Hgb 13.6 Hct 40.0 MCV 90.9 MCH 30.9 MCHC 34.0 RDW Std Deviation 43.2 RDW Coeff of Thao 13.0 Plt Count 300 MPV 11.0 Immature Gran % (Auto) 0.100 Neut % (Auto) 60.9 Lymph % (Auto) 32.2 [place] % (Auto) 5.4 Eos % (Auto) 1.0 Baso % (Auto) 0.4 Absolute Neuts (auto) 5.7 Absolute Lymphs (auto) 3.02 Nucleated RBC % 0 HCG, Quant 35543 H Blood Type A NEGATIVE Antibody Screen NEGATIVE Treatment and Re-Evaluation Narrative: Patient appears well, patient appears nontoxic, vital signs are stable. Patientpresents to the emerged department with complaints of heavy vaginal bleeding last evening. Patient states she has minimal to no bleeding today, no abdominalpain. She is concerned for a miscarriage, she has an ultrasound done on Monday of this upcoming week which is in 3 days. She does not want ultrasound today. She states that she would like her laboratory values done as well as her RhoGAM shot. She has had this in the past. Patient states that shehas a negative. Physical examination was grossly unremarkable. Patient's laboratory values show the patient is a negative. Patient CBC was unremarkable. Patient's hCG quantitative was 15,968. Again the patient did refuse transvaginal ultrasound. She will follow-up with her [facility] in 48 hours,she will then receive a repeat hCG quantitative level. She was given a RhoGAM shot secondary to her A- blood. Urinalysis was negative for any infection. At this time, patient is a threatened miscarriage, differential also includes ectopic , irregular vaginal bleeding. Patient is resting comfortably, patient has no lower abdominal pain. This makes ectopic unlikely. She will follow-up closely with her [facility] which she is established with in the next 48 hours. Patient is happy with plan of care, patient stable for discharge. She was given return precaution. <Dr. Deuce Levy, DO - Last Filed: 03/26/23 15:55> [facility] Narrative Medical decision making narrative: I have personally performed a face to face assessment of the patient and have reviewed the KELSEY Note. I performed a substantive portion of the visit including all aspects of the following. My best findings include: History: Patient presents with vaginal bleeding that began last night. Patient states she has a history of multiple miscarriages. Patient states she is approximately 6 weeks . Patient states she knows her blood type is A-. Patient states that whenever she starts having some bleeding she needs RhoGAM. Patient states she does not want ultrasound today. Patient states she will follow-up with her [facility] this week with her scheduled appointment. Patient denies any pain. Patient denies any fevers or chills. Patient denies any nausea or vomiting. Exam: Vital signs are stable. Patient is afebrile. Patient is in no acute distress. Oral mucosa is pink and moist. Neck is supple. Trachea is midline. There is no JVD. Heart was regular rate and rhythm. Lungs are clear and equal bilaterally. Abdomen is soft. Bowel sounds are normal. There is no tenderness. There is no rebound or guarding noted. Cranial nerves II through XII are intact. There are no focal motor or sensory deficits noted. Medical Decision Making: Basic labs will be obtained. Quantitative hCG will be obtained to assess for status. CBC will be obtained to assess for anemia and leukocytosis. Urinalysis will be obtained to assess for urinary tract infection. Type and screen will be obtained along with the RhoGAM work-up. CBC was reviewed and was within normal limits. Blood type was reviewed and was a negative. Patient was given RhoGAM here. Patient was instructed to follow-up with her [employer] [facility] in 2-3 days for repeat evaluation and repeat quantitative hCG. Lab Data Labs: Laboratory Results - last 24 hr 03/26/23 03/26/23 03/26/23 13:35 13:35 13:35 WBC 9.4 RBC 4.40 Hgb 13.6 Hct 40.0 MCV 90.9 MCH 30.9 MCHC 34.0 RDW Std Deviation 43.2 RDW Coeff of Thao 13.0 Plt Count 300 MPV 11.0 Immature Gran % (Auto) 0.100 Neut % (Auto) 60.9 Lymph % (Auto) 32.2 [place] % (Auto) 5.4 Eos % (Auto) 1.0 Baso % (Auto) 0.4 Absolute Neuts (auto) 5.7 Absolute Lymphs (auto) 3.02 Nucleated RBC % 0 HCG, Quant 51849 H Blood Type A NEGATIVE Antibody Screen NEGATIVE Discharge Plan Triage Chief Complaint: Vag Bld, Preg ED Midlevel Provider: Viet Glover ED Provider: Deuce Levy Dx/Rx/DC Orders Clinical Impression: Vaginal bleeding affecting early Instructions: Bleeding During Early Prescriptions: No Action prenat.vits,jessi,bkw-yvlv-svemt Tablet 1 tab PO DAILY metformin 500 mg Tablet 500 mg PO DAILY aspirin [Aspir-81] 81 mg Tablet,Delayed Release (Dr/Ec) 81 mg PO DAILY folic acid 1 mg Tablet 1 mg PO DAILY Primary Care Provider: Barry Reeves Referrals: Barry Reeves MD [Primary Care Provider] - Activity Restrictions/Additional Instructions: You received your RhoGAM shot today you need to follow-up with your [facility], yourhCG quantitative was 15,968, this needs redrawn in 2 days. Disposition Disposition: Home, Self Care What to do if you have Problems For any increased pain, shortness of breath, bleeding, nausea or vomiting, chestpain, or any unexpected problems, contact your Primary Care Provider. Call [facility] ([phone]) or report to the closest Emergency Room. Call 911 if necessary. 03/26/23 1555 <Electronically signed by Deuce Levy DO> Cosigner Signature (if applicable): CC: Dr. Barry Reeves MD ~ Signed [facility] Work Phone: [phone] Evaluation + Plan note Diagnostic Tests Pending * Urine Culture 03/13/23 Future Scheduled Tests Laboratory* hCG, quantitative(AO) 08/04/22 * hCG, quantitative(AO) 08/10/22 * hCG, quantitative(AO) 08/13/22 * hCG, quantitative(AO) 08/16/22 * hCG, quantitative(AO) 08/19/22 * hCG, quantitative(AO) 07/18/22 * Panel (AO) 08/30/22 * Urine Culture 08/30/22 [facility] 01-23-2023 History of Present illness Narrative* Osito Gaxiola APRN.[facility] [employer]DER - 12/12/2022 9:54 AM EST Subjective HPI HPI Gabrielle Carroll is a 22 year old female who presents today for CC of st, h/a, sinus pressure, fever 102. This started 1 day ago. Has tried otc medication for relief. Symptoms are worsened by nothing. Hx of asthma. No known sick exposures. .Patient presents with: Sore Throat: SPANN, sinus x 1 day PAST MEDICAL HISTORY Diagnosis Date Headache NEGATIVE MEDICAL HISTORY PAST SURGICAL HISTORY Procedure Laterality Date PAST SURGICAL HISTORY OF 2020 [place] teeth extracted TONSILLECTOMY AND ADENOIDECTOMY HX ALLERGIES Sumatriptan MEDICATIONS aspirin 81 mg chewable tablet chew 1 (ONE) tablet BY MOUTH ONCE DAILY metFORMIN ER (GLUCOPHAGE XR) 500 mg 24 hr tablet Take 1 tablet by mouth once daily. albuterol HFA (PROAIR HFA) 90 mcg/actuation inhaler Inhale 2 Puffs as instructed every 4 hours as needed. FAMILY HISTORY Problem Relation Age of Onset Cervical Cancer Sister Social History Tobacco Use Smoking status: Never Smokeless tobacco: Never Vaping Use Vaping Use: Never used Substance Use Topics Alcohol use: Never Drug use: Never ROS Objective Blood pressure 118/80, pulse 104, temperature 36.6 C (97.9 F), resp. rate 21, weight 113.2 kg (249 lb 9.6 oz), last menstrual period 06/03/2021, SpO2 100 %. Physical Exam Constitutional: General: She is not in acute distress. Appearance: She is not toxic-appearing or diaphoretic. HENT: Head: Normocephalic and atraumatic. Right Ear: Hearing, tympanic membrane, ear canal and external ear normal. Left Ear: Hearing, tympanic membrane, ear canal and external ear normal. Nose: Nose normal. Mouth/Throat: Pharynx: Uvula midline. No pharyngeal swelling, oropharyngeal exudate, posterior oropharyngeal erythema or uvula swelling. Eyes: General: Lids are normal. No scleral icterus. Right eye: No discharge. Left eye: No discharge. Conjunctiva/sclera: Conjunctivae normal. Pupils: Pupils are equal, round, and reactive to light. Neck: Trachea: Trachea normal. Cardiovascular: Rate and Rhythm: Normal rate and regular rhythm. Heart sounds: Normal heart sounds. Pulmonary: Effort: Pulmonary effort is normal. Breath sounds: Normal breath sounds. Musculoskeletal: Cervical back: Normal range of motion and neck supple. Lymphadenopathy: Cervical: No cervical adenopathy. Right cervical: No superficial cervical adenopathy. Left cervical: No superficial cervical adenopathy. Skin: Findings: No rash. Neurological: Mental Status: She is alert and oriented to person, place, and time. ASSESSMENT/PLAN: 1. URI, acute - ICD9: 465.9, ICD10: J06.9 (primary diagnosis) - Discussed viral etiology and rationale for treatment. - Symptomatic treatment with prn analgesia - Supportive care with fluids and rest - Follow up in 3-5 days if symptoms persist or sooner if worsening of symptoms -If you experience chest pain/shortness of breath go to ER - COVID WITH FLUA+B, ROUTINE - ALBUTEROL SULFATE HFA 90 MCG/ACTUATION AEROSOL INHALER 2. Sore throat - ICD9: 462, ICD10: J02.9 Negative, viral - STREP A MOLECULAR (POC) 3. History of asthma - ICD9: V12.69, ICD10: Z87.09 Inhaler refill. - ALBUTEROL SULFATE HFA 90 MCG/ACTUATION AEROSOL INHALER Osito Gaxiola APRN.[facility] Discharge instructions Patient Education 08/06/2022 18:05:47 Understanding Miscarriage: Emotions Understanding Miscarriage: Emotions Miscarriage is the unplanned end of a that happens before you reach 20 weeks. When a miscarriage happens, you re likely to have a wide range of feelings. Allow yourself to accept how you feel. Only then can you begin to move on. No one is to blame Know that you did not cause this to happen. Miscarriage is very common. There is a 15% chance of miscarriage with each (after has been diagnosed). Miscarriage usually takes place during the first 10 weeks after conception. Grief takes many forms Grief may be the first thing you feel, or it may come upon you later. Perhaps you ll grieve becausethe future you hoped for is lost. Grief is painful and often lonely. But your miscarriage should become easier to deal with over time. What you feel is OK No one can tell you how to respond to your miscarriage. If you have been trying to have a child, this loss may feel overwhelming. Perhaps this was an unplanned . That doesn t mean you won t feel loss. You know yourself best. It s OK to feel whatever you feel. A sense of loss No matter what you thought about being , having a miscarriage may cause a sense of loss. You may feel as if something is missing. It s OK if you can t describe how you feel. At first, it may be enough just to look inside yourself and feel your emotions. Partner s note Men grieve, too. You may be feeling sad, helpless or frustrated. When you re struggling with your own feelings, knowing how to help your partner may be hard. But do your best to provide support. The following tips may also help: Be kind to yourself and your partner. Spend time together. Fix a meal or bring dinner home for her. Rent a movie. If you have children, spend extra time with them. [phone] [employer]. [address] [place] [address]. All rights reserved. This information is not intended as a substitute for professional medical care. Always follow [facility] professional's instructions. 08/06/2022 18:05:42 Miscarriage, Spontaneous (Completed) Completed Spontaneous Miscarriage Today's exams show your has ended suddenly. This can be emotionally difficult. There is little that can be done to change the way you feel. But understand that miscarriages are common. About 1 or 2 out of every [address] Some end even before you know you are . This happens for a number of reasons, and usually the cause is never known. It s important you know that it is not your fault. It didn t happen because you did anything wrong. Having sex or exercising does not cause a miscarriage. These activities are usually safe unless youhave pain or bleeding or your doctor tells you to stop. Even minor falls won t cause a miscarriage.Miscarriages happen because things were not developing as they were supposed to. It appears that your miscarriage is complete. All tissue from the should have passed out of your uterus. If some of the tissue remains in the uterus, you will probably have more cramping and bleeding. The bleeding can be light spotting or like a period, but it is usually not heavy. You may also pass some tissue. After you have recovered, you should still be able to get again. But before trying, talk with your healthcare provider. Home care Follow these tips to take of yourself at home: You can go back to your normal activities if you don t have heavy bleeding or pain. You may have some cramping and bleeding, but it shouldn t be severe. Until the bleeding stops completely and to prevent infection: Don t have sex until your healthcare provider says it s OK Use sanitary napkins instead of tampons. Don t douche. Having a miscarriage can be very difficult emotionally. It is natural to feel sadness or grief. It may help to talk about your feelings with family and friends, or with a counselor. Follow-up care Make an appointment to see your healthcare provider in 1 to 2 weeks for a checkup. If cramping and bleeding return and continue for more than a few days, call your healthcare provider or return here for an exam. To prevent infection in the uterus, your provider might need to take out any tissue that remains. Or you may be given medicine to take at home to help your body expel therest of the tissue. If you had an ultrasound, a radiologist will review it. You will be told of any new findings that may affect your care. Call 911 Call 911 if you have: Severe pain and very heavy bleeding Severe lightheadedness, passing out, or fainting Rapid heart rate Difficulty breathing Confusion or difficulty waking up When to seek medical advice Call your healthcare provider right away if any of these occur: Heavy bleeding. This means soaking 1 new pad an hour over 3 hours. Bleeding that doesn t stop after 10 days Foul-smelling vaginal discharge Fever of 100.4 F (38 C) or higher, or as directed by your healthcare provider Pain in your lower belly (abdomen) that gets worse Weakness or dizziness [phone] [employer]. [address] [place] [address], [place] [address]. All rights reserved. This information is not intended as a substitute for professional medical care. Always follow yourhealthcare professional's instructions. Follow Up Care 08/06/2022 15:56:44 With:SOCO CAMPUZANO MD Address: [address] [place] [address] [place] [address]- [phone] When:2-4 days [facility] 09-17-2022 Emergency department Discharge summary Discharge Instructions Thank you for allowing [facility] to assist you with your healthcare needs. The following is importantdischarge information regarding your hospital visit. Diagnosis from Today's Visit Vaginal bleeding post AB or miscarriage What to Do Next Instructions from Your Care Team No qualifying data available. Post Acute Orders No qualifying data available. You Need to Schedule the Following Appointments Follow Up with SOCO CAMPUZANO MD When Within 2-4 days Where: [address] [facility] [address]- [phone] Allergies Imitrex Medications Please ask your primary doctor or pharmacist before taking any other medication not listed, including over the counter drugs, herbal medications, vitamins and or supplements as they may interact withyour home medications. What How Much When Why Instructions Last Dose Changed miSOPROStol (Cytotec 200 mcg oral tablet) 2 tab(s) by mouth Three (3) times a day Duration: 2 Days Printed Prescription Changed miSOPROStol (miSOPROStol 200 mcg oral tablet) 3 tab(s) by mouth Every 6 hours Duration: 2 Doses Unchanged acetaminophen (Tylenol 325 mg oral capsule) 1 cap by mouth Every 6 hours Unchanged folic acid (folic acid 1 mg oral tablet) 1 tab(s) by mouth Once a day Threatened BMI 40.0-44.9, adult Unchanged ibuprofen (ibuprofen 600 mg oral tablet) 1 tab(s) by mouth Every 6 hours as needed for for pain Take with food or milk. Unchanged multivitamin, ( Multivitamins with Vitamin B Complex, Vitamin C, Minerals and L-Methylfolate oral capsule) 1 cap by mouth Every day Unchanged ondansetron (Zofran 4 mg oral tablet) 1 tab(s) by mouth Every 6 hours as needed for Nausea/Vomiting Duration: 30 Days Unchanged progesterone (Prometrium 100 mg oral capsule) 4 cap by mouth Once a day Threatened BMI 40.0-44.9, adult Duration: 14 Days Please take this list to your next doctor s visit. Bring all medications you take, including over the counter medications, herbals and other supplements with you to your doctor s visit. Patients and families are reminded to discard old lists and to update any records with all medication providers or retail pharmacies. Medication Leaflets misoprostol (wilberto mancilla) [facility] What is the most important information I should know about misoprostol? Misoprostol can cause defects, premature , uterine rupture, miscarriage, or incomplete miscarriage and dangerous uterine bleeding. Do not use misoprostol if you are . If you are able to become , you will need to have a negative test before startingthis treatment. You will also need to use effective control to prevent during treatment. What is misoprostol? Misoprostol reduces stomach acid and helps protect the stomach from damage that can be caused by taking a nonsteroidal anti-inflammatory drug (NSAID) such as aspirin, ibuprofen (Advil, Motrin), naproxen (Aleve), celecoxib, diclofenac, indomethacin, meloxicam, and others. Misoprostol is used to prevent stomach ulcers during treatment with aspirin or an NSAID. Misoprostol may also be used for purposes not listed in this medication guide. What should I discuss with my healthcare provider before taking misoprostol? You should not use this medicine if you are allergic to misoprostol or other prostaglandins, or if you are . To make sure misoprostol is safe for you, tell your doctor if you have: inflammatory bowel disease (IBD), irritable bowel syndrome (IBS), or other intestinal problems; heart disease; or if you are dehydrated. FDA category X. Misoprostol can cause defects, premature , uterine rupture, miscarriage, or incomplete miscarriage and dangerous uterine bleeding. Do not use misoprostol if you are . Use effective control to prevent while you are using this medicine, andfor at least 1 month after your treatment ends. If you are able to become , you will need to have a negative test before you start taking misoprostol. Treatment with this medicine should begin on the second or third day of your menstrual period. Stop taking this medicine and tell your doctor right away if you become during treatment. It is not known whether misoprostol passes into breast milk or if it could harm a nursing baby. Tell your doctor if you are breast-feeding a baby. How should I take misoprostol? Follow all directions on your prescription label. Do not take this medicine in larger or smaller amounts or for longer than recommended. Do not share this medicine with another person. Misoprostol is usually taken with meals and at bedtime. Follow your doctor's instructions. You may have nausea, stomach cramps, or diarrhea while taking this medicine, especially during the first few weeks after you start taking misoprostol. These symptoms usually last for about a week. Call your doctor if you have severe nausea, stomach pain, or diarrhea lasting longer than 8 days. Read all medication guides or patient instructions provided with this medicine each time your receive a new supply. Store at room temperature away from moisture and heat. What happens if I miss a dose? Take the missed dose as soon as you remember. However, if it is almost time for the next dose, skipthe missed dose and take only the next regularly scheduled dose. Do not take a double dose of this medication. What happens if I overdose? Seek emergency medical attention or call the Poison Help line at . What should I avoid while taking misoprostol? Ask your doctor before using an antacid, and use only the type your doctor recommends. Some antacids can increase your risk of diarrhea while you are taking misoprostol. What are the possible side effects of misoprostol? Get emergency medical help if you have any of these signs of an allergic reaction: hives; difficultbreathing; swelling of your face, lips, tongue, or throat. Call your doctor at once if you have: severe ongoing stomach discomfort or diarrhea; or dehydration symptoms--feeling very thirsty or hot, being unable to urinate, heavy sweating, or hot and dry skin. Common side effects may include: diarrhea; stomach pain, nausea, upset stomach, gas; vaginal bleeding or spotting, heavy menstrual flow; or menstrual cramps. This is not a complete list of side effects and others may occur. Call your doctor for medical advice about side effects. You may report side effects to FDA at 2-710-FHJ-7962. What other drugs will affect misoprostol? Other drugs may interact with misoprostol, including prescription and [id number] medicines, vitamins, and herbal products. Tell each of your health care providers about all medicines you use now and any medicine you start or stop using. Where can I get more information? Your pharmacist can provide more information about misoprostol. Remember, keep this and all other medicines out of the reach of children, never share your medicines with others, and use this medication only for the indication prescribed. Every effort has been made to ensure that the information provided by [employer] ('[employer]') is accurate, up-to-date, and complete, but no guarantee is made to that effect. Drug information contained herein may be time sensitive. [employer] information has been compiled for use by healthcare practitioners and consumers in the [place] and therefore [employer] does not warrant that uses outside of the [place] are appropriate, unless specifically indicated otherwise. [employer] drug information does not endorse drugs, diagnose patients or recommend therapy. [employer] drug information isan informational resource designed to assist licensed healthcare practitioners in caring for their p atients and/or to serve consumers viewing this service as a supplement to, and not a substitute for, the expertise, skill, knowledge and judgment of healthcare practitioners. The absence of a warningfor a given drug or drug combination in no way should be construed to indicate that the drug or drug combination is safe, effective or appropriate for any given patient. [employer] does not assume any responsibility for any aspect of healthcare administered with the aid of information [employer] provides. The information contained herein is not intended to cover all possible uses, directions, precautions, warnings, drug interactions, allergic reactions, or adverse effects. If you have questions about the drugs you are taking, check with your doctor, nurse or pharmacist. Copyright 0468-2258 [employer] | [employer]. Version: 8.01. Revision Date: 05/29/2014. Education Materials Understanding Miscarriage: Emotions Miscarriage is the unplanned end of a that happens before you reach 20 weeks. When a miscarriage happens, you re likely to have a wide range of feelings. Allow yourself to accept how you feel. Only then can you begin to move on. No one is to blame Know that you did not cause this to happen. Miscarriage is very common. There is a 15% chance of miscarriage with each (after has been diagnosed). Miscarriage usually takes place during the first 10 weeks after conception. Grief takes many forms Grief may be the first thing you feel, or it may come upon you later. Perhaps you ll grieve becausethe future you hoped for is lost. Grief is painful and often lonely. But your miscarriage should become easier to deal with over time. What you feel is OK No one can tell you how to respond to your miscarriage. If you have been trying to have a child, this loss may feel overwhelming. Perhaps this was an unplanned . That doesn t mean you won t feel loss. You know yourself best. It s OK to feel whatever you feel. A sense of loss No matter what you thought about being , having a miscarriage may cause a sense of loss. You may feel as if something is missing. It s OK if you can t describe how you feel. At first, it may be enough just to look inside yourself and feel your emotions. Partner s note Men grieve, too. You may be feeling sad, helpless or frustrated. When you re struggling with your own feelings, knowing how to help your partner may be hard. But do your best to provide support. The following tips may also help: Be kind to yourself and your partner. Spend time together. Fix a meal or bring dinner home for her. Rent a movie. If you have children, spend extra time with them. [phone] [employer]. [address] [place] [address]. All rights reserved. This information is not intended as a substitute for professional medical care. Always follow yourhealthcare professional's instructions. Completed Spontaneous Miscarriage Today's exams show your has ended suddenly. This can be emotionally difficult. There is little that can be done to change the way you feel. But understand that miscarriages are common. About 1 or 2 out of every [address] Some end even before you know you are . This happens for a number of reasons, and usually the cause is never known. It s important you know that it is not your fault. It didn t happen because you did anything wrong. Having sex or exercising does not cause a miscarriage. These activities are usually safe unless youhave pain or bleeding or your doctor tells you to stop. Even minor falls won t cause a miscarriage.Miscarriages happen because things were not developing as they were supposed to. It appears that your miscarriage is complete. All tissue from the should have passed out of your uterus. If some of the tissue remains in the uterus, you will probably have more cramping and bleeding. The bleeding can be light spotting or like a period, but it is usually not heavy. You may also pass some tissue. After you have recovered, you should still be able to get again. But before trying, talk with your healthcare provider. Home care Follow these tips to take of yourself at home: You can go back to your normal activities if you don t have heavy bleeding or pain. You may have some cramping and bleeding, but it shouldn t be severe. Until the bleeding stops completely and to prevent infection: Don t have sex until your healthcare provider says it s OK Use sanitary napkins instead of tampons. Don t douche. Having a miscarriage can be very difficult emotionally. It is natural to feel sadness or grief. It may help to talk about your feelings with family and friends, or with a counselor. Follow-up care Make an appointment to see your healthcare provider in 1 to 2 weeks for a checkup. If cramping and bleeding return and continue for more than a few days, call your healthcare provider or return here for an exam. To prevent infection in the uterus, your provider might need to take out any tissue that remains. Or you may be given medicine to take at home to help your body expel therest of the tissue. If you had an ultrasound, a radiologist will review it. You will be told of any new findings that may affect your care. Call 911 Call 911 if you have: Severe pain and very heavy bleeding Severe lightheadedness, passing out, or fainting Rapid heart rate Difficulty breathing Confusion or difficulty waking up When to seek medical advice Call your healthcare provider right away if any of these occur: Heavy bleeding. This means soaking 1 new pad an hour over 3 hours. Bleeding that doesn t stop after 10 days Foul-smelling vaginal discharge Fever of 100.4 F (38 C) or higher, or as directed by your healthcare provider Pain in your lower belly (abdomen) that gets worse Weakness or dizziness [phone] [employer]. [address] [place] [address], [place] [address]. All rights reserved. This information is not intended as a substitute for professional medical care. Always follow yourhealthcare professional's instructions. Additional Information VACCINATE! IT SAVES LIVES! Members of the community who have not yet received the COVID-19 vaccine and would like to receive it can visit one of [facility] vaccine clinics. There are many vaccine clinic locations within the [facility]. For locations and available times, please visit [email or web address]. It is important to note that some COVID mobile vaccine clinics are held outdoors and may be canceled in rainy orstormy conditions. To learn more about pediatric vaccinations (ages 5-11), we invite you to visit the [facility] webpage. [email or web address] learn more about the COVID-19 vaccine, we invite you to visit the [facility] website for a list of frequently asked questions. [email or web address] [facility] Patient Portal Access Instructions: Stay connected with your healthcare team and access your personal medical information anytime with the [facility] Patient Portal. If you would like a full copy of your medical records please contact the [facility] Medical Records Department Monday through Monday between 8a.m. and 4:30p.m. Please follow the directions below to access the portal: 1.Access the email account you provided upon registration to the hospital.2.Look for an invitation email from [facility].3.Open the email and access the invitation link: Accept Invitation to [facility]4.Fill in the required brown to create your account. Sign into www.[employer] with your username and password that you created in the above steps to stay up to date. You can then view a summary of results, a summary of your visits, and the ability to download your summaries to your computer or send the information securely to a physician. Remember that your healthcare information is confidential, so carefully consider who you will allow to register on the [facility] Patient Portal for access to your information. You can also access the [facility] Patient Portal on the [employer] [address] kelsey. Simply click on Health Records under [employer] and then click on the [employer] logo. HOW TO SAFELY DISPOSE OF PRESCRIPTION MEDICATIONS Please use one of the following methods to safely dispose of your unused medications. 1.Use a drug disposal kit: the drug disposal pouch allows you to safely discard your old and unuseddrugs. Ask your nurse to give you one when you are discharged.2.Visit a local take-back location: Many local pharmacies and police departments have programs that collect old and unwanted prescriptiondrugs. Call your local pharmacy or go to http://Sprig.[employer]/0H5Ip8z to find one close to you.3.Make use of household items: Use cat litter or old coffee grounds to dispose medications if other options arenot available. Mix your drugs with these household products, seal them in an airtight container andthrow it into the garbage. Call [facility]: [phone] to be sure your drugs can be disposed of in this way. Some medicines may require a different approach.4.Never flush your medications down the toilet. IF YOU HAVE BEEN PRESCRIBED AN OPIOIDS FOR PAIN If you have been prescribed an opioid (such as hydrocodone, oxycodone or morphine), it is critical to understand the possible side effects and risks of opioid pain medications. Even when taken as directed, opioids can have several side effects including: Tolerance, meaning you might need to take more of a medication for the same pain relief. Nausea, vomiting and/or constipation. Sleepiness, dizziness, dry mouth, confusion, depression or itching. Physical dependence, meaning you have withdrawal symptoms when a medication is stopped ? this can develop within a few days. KNOW YOUR RESPONSIBILITIES It is important to know exactly how much and how often to take the opioid pain medications you are prescribed. Never take opioids in higher amounts or more often than prescribed. Do not combine opioids with alcohol or other drugs that cause drowsiness, such as benzodiazepines, also known as benzos,including diazepam and alprazolam, muscle relaxants or sleep aids. Never sell or share prescriptionopioids. This is illegal. Store opioids in a secure place and out of reach of others (including children, family, friends and visitors). The last page(s) of this document has been signed and retained as a CHART COPY Signatures Patient Education Materials Understanding Miscarriage: Emotions Miscarriage, Spontaneous (Completed) Medication Leaflets misoprostol My discharge plan and instructions have been reviewed and explained to me and IGLEN ALLISON V understand my current condition and have read and understand these discharge instructions. I have received a written copy of the plan/instructions. If I have questions, I am aware that I should contact my doctor. Patient/Surgical Assistant Certified Signature: Date/Time: Relationship to Patient: Witness Name/Signature: Date/Time: [facility]09-17-2022 History of Present illness Narrative * Jolanta Robert APRN.MARY - 08/06/2022 10:39 AM EDT Patient came in with severe abdominal pain. Patient says it is an 8 out of 10. Patient says she could hardly get off the couch yesterday. Patient says she had a miscarriage last week and did not haveany side effects from that pain damico said she had everything removed. Says she called her OBs office yesterday and they said there is no reason she should be having pain to take ibuprofen. Patient says the pain just seems to be getting much worse patient is tearful while sitting here. Patient does not want to call anybody to escort her to the ER at this time. Patient will take her self to the ER [facility] + Plan note Future Scheduled Tests Laboratory* hCG, quantitative(AO) 08/04/22 * hCG, quantitative(AO) 08/10/22 * hCG, quantitative(AO) 08/13/22 * hCG, quantitative(AO) 08/16/22 * hCG, quantitative(AO) 08/19/22 * hCG, quantitative(AO) 07/18/22 * Panel (AO) 08/30/22 * Urine Culture 08/30/22 Radiology* US OB < 14 weeks 03/11/22 [facility] 09-15-2022 Evaluation + Plan note Future Scheduled Tests Laboratory* hCG, quantitative(AO) 08/04/22 * hCG, quantitative(AO) 08/10/22 * hCG, quantitative(AO) 08/13/22 * hCG, quantitative(AO) 08/16/22 * hCG, quantitative(AO) 07/18/22 * Panel (AO) 08/30/22 * Urine Culture 08/30/22 [facility] 09-15-2022 Evaluation + Plan note Future Scheduled Tests Laboratory* hCG, quantitative(AO) 08/04/22 * hCG, quantitative(AO) 08/10/22 * hCG, quantitative(AO) 08/13/22 * hCG, quantitative(AO) 08/16/22 * hCG, quantitative(AO) 07/18/22 * hCG, quantitative(AO) 03/16/23 * hCG, quantitative(AO) 03/19/23 * hCG, quantitative(AO) 03/25/23 * hCG, quantitative(AO) 03/28/23 * Panel (AO) 08/30/22 * Urine Culture 08/30/22 * Urine Culture 03/16/23 [facility] 09-15-2022 Evaluation + Plan note Future Scheduled Tests Laboratory* hCG, quantitative(AO) 08/04/22 * hCG, quantitative(AO) 08/10/22 * hCG, quantitative(AO) 08/13/22 * hCG, quantitative(AO) 08/16/22 * hCG, quantitative(AO) 07/18/22 * hCG, quantitative(AO) 03/28/23 * hCG, quantitative(AO) 03/16/23 * hCG, quantitative(AO) 03/19/23 * hCG, quantitative(AO) 03/25/23 * hCG, quantitative(AO) 03/28/23 * Panel (AO) 08/30/22 * Urine Culture 08/30/22 * Urine Culture 03/16/23 * Urine Drug Screen 04/03/23 * [facility] Lab Send out (Blood Specimens) 05/01/23 * [facility] Lab Send out (Blood Specimens) 05/01/23 Radiology* US OB < 14 weeks 03/29/23 [facility] 09-15-2022 Evaluation + Plan note Future Scheduled Tests Laboratory* hCG, quantitative(AO) 08/04/22 * hCG, quantitative(AO) 08/10/22 * hCG, quantitative(AO) 08/13/22 * hCG, quantitative(AO) 08/16/22 * hCG, quantitative(AO) 03/28/23 * hCG, quantitative(AO) 03/16/23 * hCG, quantitative(AO) 03/19/23 * hCG, quantitative(AO) 03/25/23 * hCG, quantitative(AO) 03/28/23 * Panel (AO) 08/30/22 * Urine Culture 08/30/22 * Urine Culture 03/16/23 * Urine Drug Screen 04/03/23 * [facility] Lab Send out (Blood Specimens) 05/01/23 * [facility] Lab Send out (Blood Specimens) 05/01/23 Radiology* US OB < 14 weeks 03/29/23 [facility] 09-14-2022 Note A. Received in formalin, labeled with the patients name, Case #10,235, and endocervical versus POC Are multiple portions of maya-brown hemorrhagic tissue admixed with blood clots aggregating to 6.5 x5 x 2.5 cm. No vesicles or parts are identified. RS 8, all the maya-martinez identified soft tissue is submitted. Dictated by KELLI Eckert [facility] 09-14-2022 Note A. Received in formalin, labeled with the patients name, Case #10,235, and endocervical versus POC Are multiple portions of maya-brown hemorrhagic tissue admixed with blood clots aggregating to 6.5 x5 x 2.5 cm. No vesicles or parts are identified. RS 8, all the maya-martinez identified soft tissue is submitted. Dictated by KELLI Eckert [facility] 09-13-2022 Note A. Received in formalin, labeled with the patients name, Case #10,235, and endocervical versus POC Are multiple portions of maya-brown hemorrhagic tissue admixed with blood clots aggregating to 6.5 x5 x 2.5 cm. No vesicles or parts are identified. RS 8, all the maya-martinez identified soft tissue is submitted. Dictated by KELLI Eckert [facility] 09-13-2022 Note A. Received in formalin, labeled with the patients name, Case #10,235, and endocervical versus POC Are multiple portions of maya-brown hemorrhagic tissue admixed with blood clots aggregating to 6.5 x5 x 2.5 cm. No vesicles or parts are identified. RS 8, all the maya-martinez identified soft tissue is submitted. Dictated by KELLI Eckert [facility] 09-13-2022 Note A. Received in formalin, labeled with the patients name, Case #10,235, and endocervical versus POC Are multiple portions of maya-brown hemorrhagic tissue admixed with blood clots aggregating to 6.5 x5 x 2.5 cm. No vesicles or parts are identified. RS 8, all the maya-martinez identified soft tissue is submitted. Dictated by KELLI Eckert [facility] 09-13-2022 Note A. Received in formalin, labeled with the patients name, Case #10,235, and endocervical versus POC Are multiple portions of maya-brown hemorrhagic tissue admixed with blood clots aggregating to 6.5 x5 x 2.5 cm. No vesicles or parts are identified. RS 8, all the maya-martinez identified soft tissue is submitted. Dictated by KELLI Eckert [facility] 09-13-2022 Note A. Received in formalin, labeled with the patients name, Case #10,235, and endocervical versus POC Are multiple portions of maya-brown hemorrhagic tissue admixed with blood clots aggregating to 6.5 x5 x 2.5 cm. No vesicles or parts are identified. RS 8, all the maya-martinez identified soft tissue is submitted. Dictated by KELLI Eckert [facility] 09-06-2022 Hospital Discharge instructions Patient Education 07/26/2022 20:01:11 Bleeding During Early Bleeding During Early Ultrasound can help check the health of your fetus. If you ve had bleeding early in your , you re not alone. Many other women have had early bleeding, too. And in most cases, nothing is wrong. But your healthcare provider still needsto know about it. He or she may want to do tests to find out why you re bleeding. Call your healthcare provider if you notice bleeding during . What causes early bleeding? The cause of bleeding early in is often unknown. But many factors early on in may lead to bleeding or spotting. These include sexual intercourse, which may cause bleeding in any trimester. Here are some other causes: Implantation of the embryo on the uterine wall Subchorionic hemorrhage (bleeding between the sac membrane and the uterus) Miscarriage Ectopic (tubal) If you notice spotting Spotting (very light bleeding) is the most common type of bleeding in early . If you notice it, call your healthcare provider. Chances are, he or she will tell you that you can care for yourself at home. If tests are needed Depending on how much you bleed, your healthcare provider may ask you to come in for some tests. A pelvic exam, for instance, can help see how far along your is. You also may have an ultrasound or a Doppler test. These imaging tests use sound waves to check the health of your fetus. The ultrasound may be done on your belly or inside your vagina. Your healthcare provider also may order aspecial blood test. This test compares your hormone levels in blood samples taken 2 days apart. Theresults can help your healthcare provider learn more about the implantation of the embryo. Your blood type will also need to be checked to evaluate whether you will need to be treated for Rh sensitization. Warning signs If your bleeding doesn t stop or if you notice any of the following, seek medical help right away: Soaking a sanitary pad each hour Bleeding like you re having a period Cramping or severe belly pain Feeling dizzy or faint Tissue passing through your vagina Bleeding at any time after the first trimester Questions you may be asked Though not normal, bleeding early in is common. If you ve noticed any bleeding, you may be concerned. But keep in mind that bleeding alone doesn t mean something is wrong. Call your healthcare provider right away, though. He or she may ask you questions like these to help find the cause of your bleeding: When did your bleeding start? Is your bleeding very light (spotting) or is it like a period? Is the blood bright red or brownish? Have you had sexual intercourse recently? Have you had pain or cramping? Have you felt dizzy or faint? Monitoring your Bleeding will often stop as quickly as it began. Your may go on a normal path again. You may need to make a few extra visits. But you and your baby will most likely be fine. [phone] [employer]. [address] [place] [address]. All rights reserved. This information is not intended as a substitute for professional medical care. Always follow yourhealthcare professional's instructions. Follow Up Care 07/26/2022 16:42:06 With:SOCO CAMPUZANO MD Address: [address] [place] [phone] When:2-4 days [facility] 09-06-2022 Note Discharge Instructions Thank you for allowing [facility] to assist you with your healthcare needs. The following is importantdischarge information regarding your hospital visit. Diagnosis from Today's Visit Vaginal bleeding - < 20 wks What to Do Next Instructions from Your Care Team Discharge Return to Work, School, or Sports (Return to Work, School, or Sports) - Ordered -- 07/26/22, 07/30/22, May return to: work, 07/26/22 20:05:00 EDT Post Acute Orders No qualifying data available. You Need to Schedule the Following Appointments Follow Up with SOCO CAMPUZANO MD When Within 2-4 days Where: [address] [place] [address] [phone] Allergies Imitrex Medications Please ask your primary doctor or pharmacist before taking any other medication not listed, including over the counter drugs, herbal medications, vitamins and or supplements as they may interact withyour home medications. What How Much When Instructions Last Dose Unchanged ondansetron (Zofran 4 mg oral tablet) 1 tab(s) by mouth Every 6 hours as needed for Nausea/Vomiting Duration: 30 Days Unchanged traZODone (traZODone 50 mg oral tablet) 2 tab(s) Take 1 tablet by mouth at bedtime Please take this list to your next doctor s visit. Bring all medications you take, including over the counter medications, herbals and other supplements with you to your doctor s visit. Patients and families are reminded to discard old lists and to update any records with all medication providers or retail pharmacies. Education Materials Bleeding During Early Ultrasound can help check the health of your fetus. If you ve had bleeding early in your , you re not alone. Many other women have had early bleeding, too. And in most cases, nothing is wrong. But your healthcare provider still needsto know about it. He or she may want to do tests to find out why you re bleeding. Call your healthcare provider if you notice bleeding during . What causes early bleeding? The cause of bleeding early in is often unknown. But many factors early on in may lead to bleeding or spotting. These include sexual intercourse, which may cause bleeding in any trimester. Here are some other causes: Implantation of the embryo on the uterine wall Subchorionic hemorrhage (bleeding between the sac membrane and the uterus) Miscarriage Ectopic (tubal) If you notice spotting Spotting (very light bleeding) is the most common type of bleeding in early . If you notice it, call your healthcare provider. Chances are, he or she will tell you that you can care for yourself at home. If tests are needed Depending on how much you bleed, your healthcare provider may ask you to come in for some tests. A pelvic exam, for instance, can help see how far along your is. You also may have an ultrasound or a Doppler test. These imaging tests use sound waves to check the health of your fetus. The ultrasound may be done on your belly or inside your vagina. Your healthcare provider also may order aspecial blood test. This test compares your hormone levels in blood samples taken 2 days apart. Theresults can help your healthcare provider learn more about the implantation of the embryo. Your blood type will also need to be checked to evaluate whether you will need to be treated for Rh sensitization. Warning signs If your bleeding doesn t stop or if you notice any of the following, seek medical help right away: Soaking a sanitary pad each hour Bleeding like you re having a period Cramping or severe belly pain Feeling dizzy or faint Tissue passing through your vagina Bleeding at any time after the first trimester Questions you may be asked Though not normal, bleeding early in is common. If you ve noticed any bleeding, you may be concerned. But keep in mind that bleeding alone doesn t mean something is wrong. Call your healthcare provider right away, though. He or she may ask you questions like these to help find the cause of your bleeding: When did your bleeding start? Is your bleeding very light (spotting) or is it like a period? Is the blood bright red or brownish? Have you had sexual intercourse recently? Have you had pain or cramping? Have you felt dizzy or faint? Monitoring your Bleeding will often stop as quickly as it began. Your may go on a normal path again. You may need to make a few extra visits. But you and your baby will most likely be fine. [phone] [employer]. [address] [place] [address]. All rights reserved. This information is not intended as a substitute for professional medical care. Always follow yourhealthcare professional's instructions. Additional Information VACCINATE! IT SAVES LIVES! Members of the community who have not yet received the COVID-19 vaccine and would like to receive it can visit one of [facility] vaccine clinics. There are many vaccine clinic locations within the [facility]. For locations and available times, please visit [email or web address]. It is important to note that some COVID mobile vaccine clinics are held outdoors and may be canceled in rainy orstormy conditions. To learn more about pediatric vaccinations (ages 5-11), we invite you to visit the [facility] webpage. https://www.[email or web address]/pages/[email or web address]-Qxususwptob-Iftgpfmkqb-Wiwyj-Ukf stions.htmlTo learn more about the COVID-19 vaccine, we invite you to visit the [facility] website for a list of frequently asked questions. [email or web address]/[email or web address]-[email or web address] _[email or web address].pdf [facility] Patient Portal Access Instructions: Stay connected with your healthcare team and access your personal medical information anytime with the [facility] Patient Portal. If you would like a full copy of your medical records please contact the [facility] Medical Records Department Monday through Monday between 8a.m. and 4:30p.m. Please follow the directions below to access the portal: 1.Access the email account you provided upon registration to the hospital.2.Look for an invitation email from [facility].3.Open the email and access the invitation link: Accept Invitation to [facility]4.Fill in the required brown to create your account. Sign into www.[facility] [employer] [employer] ([employer]) with your username and password that you created in the above steps to stay up to date. You can then view a summary of results, a summary of your visits, and the ability to download your summaries to your computer or send the information securely to a physician. Remember that your healthcare information is confidential, so carefully consider who you will allow to register on the [facility] Patient Portal for access to your information. You can also access the [facility] Patient Portal on the [employer]. Simply click on Health Records under [employer] and then click on the [facility] logo. HOW TO SAFELY DISPOSE OF PRESCRIPTION MEDICATIONS Please use one of the following methods to safely dispose of your unused medications. 1.Use a drug disposal kit: the drug disposal pouch allows you to safely discard your old and unuseddrugs. Ask your nurse to give you one when you are discharged.2.Visit a local take-back location: Many local pharmacies and police departments have programs that collect old and unwanted prescriptiondrugs. Call your local pharmacy or go to http://Sprig.[employer]/3D7Mj6k to find one close to you.3.Make use of household items: Use cat litter or old coffee grounds to dispose medications if other options arenot available. Mix your drugs with these household products, seal them in an airtight container andthrow it into the garbage. Call [facility]: [phone] to be sure your drugs can be disposed of in this way. Some medicines may require a different approach.4.Never flush your medications down the toilet. IF YOU HAVE BEEN PRESCRIBED AN OPIOIDS FOR PAIN If you have been prescribed an opioid (such as hydrocodone, oxycodone or morphine), it is critical to understand the possible side effects and risks of opioid pain medications. Even when taken as directed, opioids can have several side effects including: Tolerance, meaning you might need to take more of a medication for the same pain relief. Nausea, vomiting and/or constipation. Sleepiness, dizziness, dry mouth, confusion, depression or itching. Physical dependence, meaning you have withdrawal symptoms when a medication is stopped ? this can develop within a few days. KNOW YOUR RESPONSIBILITIES It is important to know exactly how much and how often to take the opioid pain medications you are prescribed. Never take opioids in higher amounts or more often than prescribed. Do not combine opioids with alcohol or other drugs that cause drowsiness, such as benzodiazepines, also known as benzos,including diazepam and alprazolam, muscle relaxants or sleep aids. Never sell or share prescriptionopioids. This is illegal. Store opioids in a secure place and out of reach of others (including children, family, friends and visitors). The last page(s) of this document has been signed and retained as a CHART COPY Signatures Patient Education Materials Bleeding During Early Medication Leaflets My discharge plan and instructions have been reviewed and explained to me and IGLEN ALLISON V understand my current condition and have read and understand these discharge instructions. I have received a written copy of the plan/instructions. If I have questions, I am aware that I should contact my doctor. Patient/Surgical Assistant Certified Signature: Date/Time: Relationship to Patient: Witness Name/Signature: Date/Time: [facility]08-26-2022 Hospital Discharge instructions Patient Education 07/15/2022 18:45:03 , Threatened Possible Miscarriage (Threatened ) You may be having a miscarriage. Common signs of a miscarriage are pain and bleeding. A small amount of bleeding can be normal during the first 3 months of . Often the pain and bleeding stop, and you have a normal pregnancyand baby. But heavy bleeding or severe cramping can be an early sign of miscarriage. A miscarriage means an unexpected loss of your . At this time, we don t know whether you will have a miscarriage, or if things will clear up and your will continue normally. We understand that this is emotionally difficult. There is little we can say to change the way you feel. But understand that miscarriages are common. About 1 or 2 out of every [address] Some end even before you know you are . This happens for a number of reasons, and usually we never figure out why. It s important you know that it is not your fault. It didn t happen because you did anything wrong. Having sex or exercising does not cause a miscarriage. These activities are usually safe unless youhave pain or bleeding or your doctor tells you to stop. Even minor falls won t cause a miscarriage.Miscarriages happen because things were not developing as they were supposed to. No medicine can prevent a miscarriage. Again, understand that things are uncertain right now. You may still have some bleeding. This may be light spotting or like a period, and you may pass some tissue. You may have some cramping. This iswhy follow-up care is important. Home care To improve the chance of keeping your , you should take these steps: Rest in bed until the pain and bleeding stop. Don t have sex until your health care provider says it s OK. Use sanitary napkins instead of tampons. Don t douche. Don t take aspirin, ibuprofen, or naproxen. Don t have alcoholic or caffeinated beverage or smoke. Follow-up care Make an appointment with your doctor within the next week, or as directed by our staff. Note: If you had an ultrasound, a radiologist will review it. You will be told of any new findings that may affect your care. Call 911 Call 911 if you have: Severe pain and very heavy bleeding Severe lightheadedness, passing out, or fainting Rapid heart rate Difficulty breathing Confusion or difficulty waking up When to seek medical advice Call your health care provider right away if any of these occur: Vaginal bleeding or pain that lasts for more than 3 days Heavy bleeding. This means soaking 1 new pad an hour over 3 hours. Fever of 100.4 F (38 C) or higher, or as directed by your health care provider Pain in your lower belly (abdomen) that gets worse Weakness or dizziness Passage of anything that resembles tissue. This would be pink or grayish membrane or solid material. Save the tissue in a clean container and bring it to your provider. [phone] [employer]. [address] [place] [address], [place] [address]. All rights reserved. This information is not intended as a substitute for professional medical care. Always follow yourhealthcare professional's instructions. 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 The following is importantdischarge information regarding your hospital visit. Diagnosis from Today's Visit Threatened Vaginal bleeding - < 20 wks What to Do Next Instructions from Your Care Team No intercourse. Follow-up with your [employer] doctor on Monday. You may require another beta-hCG (hormone level) drawn on Monday. You received a RhoGAM shot today. Discharge Return to Work, School, or Sports (Return to Work, School, or Sports) - Ordered -- 07/15/22, 07/17/22, May return to: work, 07/15/22 18:52:00 EDT Post Acute Orders No qualifying data available. You Need to Schedule the Following Appointments Follow Up with Your CAR [employer] doctor When Within 2-4 days Where: Follow Up with Go to emergency room if symptoms worsen When Within 2-4 days Allergies Imitrex Medications Please ask your primary doctor or pharmacist before taking any other medication not listed, including over the counter drugs, herbal medications, vitamins and or supplements as they may interact withyour home medications. What How Much When Why Instructions Last Dose Unchanged diphenhydrAMINE (Unisom 25mg oral tablet) 1 tab(s) by mouth Three (3) times a day Secondary amenorrhea Start with 1 at bedtime and increase to one in am and bedtime if nausea persists, Unchanged pyridoxine (Vitamin B6 50 mg oral tablet) 1 tab(s) by mouth Every day Secondary amenorrhea Duration: 14 Days Startwith 1 at bedtime and increase to 1 in am and 1 at bedtime if nausea persists Unchanged traZODone (traZODone 50 mg oral tablet) 2 tab(s) Take 1 tablet by mouth at bedtime Please take this list to your next doctor s visit. Bring all medications you take, including over the counter medications, herbals and other supplements with you to your doctor s visit. Patients and families are reminded to discard old lists and to update any records with all medication providers or retail pharmacies. Education Materials Possible Miscarriage (Threatened ) You may be having a miscarriage. Common signs of a miscarriage are pain and bleeding. A small amount of bleeding can be normal during the first 3 months of . Often the pain and bleeding stop, and you have a normal pregnancyand baby. But heavy bleeding or severe cramping can be an early sign of miscarriage. A miscarriage means an unexpected loss of your . At this time, we don t know whether you will have a miscarriage, or if things will clear up and your will continue normally. We understand that this is emotionally difficult. There is little we can say to change the way you feel. But understand that miscarriages are common. About 1 or 2 out of every [address] Some end even before you know you are . This happens for a number of reasons, and usually we never figure out why. It s important you know that it is not your fault. It didn t happen because you did anything wrong. Having sex or exercising does not cause a miscarriage. These activities are usually safe unless youhave pain or bleeding or your doctor tells you to stop. Even minor falls won t cause a miscarriage.Miscarriages happen because things were not developing as they were supposed to. No medicine can prevent a miscarriage. Again, understand that things are uncertain right now. You may still have some bleeding. This may be light spotting or like a period, and you may pass some tissue. You may have some cramping. This iswhy follow-up care is important. Home care To improve the chance of keeping your , you should take these steps: Rest in bed until the pain and bleeding stop. Don t have sex until your health care provider says it s OK. Use sanitary napkins instead of tampons. Don t douche. Don t take aspirin, ibuprofen, or naproxen. Don t have alcoholic or caffeinated beverage or smoke. Follow-up care Make an appointment with your doctor within the next week, or as directed by our staff. Note: If you had an ultrasound, a radiologist will review it. You will be told of any new findings that may affect your care. Call 911 Call 911 if you have: Severe pain and very heavy bleeding Severe lightheadedness, passing out, or fainting Rapid heart rate Difficulty breathing Confusion or difficulty waking up When to seek medical advice Call your health care provider right away if any of these occur: Vaginal bleeding or pain that lasts for more than 3 days Heavy bleeding. This means soaking 1 new pad an hour over 3 hours. Fever of 100.4 F (38 C) or higher, or as directed by your health care provider Pain in your lower belly (abdomen) that gets worse Weakness or dizziness Passage of anything that resembles tissue. This would be pink or grayish membrane or solid material. Save the tissue in a clean container and bring it to your provider. [phone] [employer]. [address] [place] [address]. All rights reserved. This information is not intended as a substitute for professional medical care. Always follow yourhealthcare professional's instructions. Additional Information VACCINATE! IT SAVES LIVES! Members of the community who have not yet received the COVID-19 vaccine and would like to receive it can visit one of [facility] vaccine clinics. There are many vaccine clinic locations within the [facility]. For locations and available times, please visit [email or web address]. It is important to note that some COVID mobile vaccine clinics are held outdoors and may be canceled in rainy orstormy conditions. To learn more about pediatric vaccinations (ages 5-11), we invite you to visit the [facility] webpage. https://[email or web address]/pages/9806-Ndmuq-Uonhvwbvmgw-Xiwywerezx-Dtijr-Jkp stions.htmlTo learn more about the COVID-19 vaccine, we invite you to visit the [facility] website for a list of frequently asked questions. https://[email or web address]/assets/Iufhsmfz-hib-Rlebhbly/vrwfw-Azujjte-Wefgqhzydp _Asked-Questions.pdf [facility] Patient Portal Access Instructions: Stay connected with your healthcare team and access your personal medical information anytime with the [facility] Patient Portal. If you would like a full copy of your medical records please contact the [facility] Medical Records Department Monday through Monday between 8a.m. and 4:30p.m. Please follow the directions below to access the portal: 1.Access the email account you provided upon registration to the [facility].2.Look for an invitation email from [facility].3.Open the email and access the invitation link: Accept Invitation to [facility]4.Fill in the required brown to create your account. Sign into www.[facility] ([employer]) with your username and password that you created in the above steps to stay up to date. You can then view a summary of results, a summary of your visits, and the ability to download your summaries to your computer or send the information securely to a physician. Remember that your healthcare information is confidential, so carefully consider who you will allow to register on the [facility] Patient Portal for access to your information. You can also access the [facility] Patient Portal on the [employer] [address]. Simply click on Health Records under HealthData and then click on the [facility]ambo logo. HOW TO SAFELY DISPOSE OF PRESCRIPTION MEDICATIONS Please use one of the following methods to safely dispose of your unused medications. 1.Use a drug disposal kit: the drug disposal pouch allows you to safely discard your old and unuseddrugs. Ask your nurse to give you one when you are discharged.2.Visit a local take-back location: Many local pharmacies and police departments have programs that collect old and unwanted prescriptiondrugs. Call your local pharmacy or go to http://bit.ly/0X0Sv5a to find one close to you.3.Make use of household items: Use cat litter or old coffee grounds to dispose medications if other options arenot available. Mix your drugs with these household products, seal them in an airtight container andthrow it into the garbage. Call [facility]: [phone] to be sure your drugs can be disposed of in this way. Some medicines may require a different approach.4.Never flush your medications down the toilet. IF YOU HAVE BEEN PRESCRIBED AN OPIOIDS FOR PAIN If you have been prescribed an opioid (such as hydrocodone, oxycodone or morphine), it is critical to understand the possible side effects and risks of opioid pain medications. Even when taken as directed, opioids can have several side effects including: Tolerance, meaning you might need to take more of a medication for the same pain relief. Nausea, vomiting and/or constipation. Sleepiness, dizziness, dry mouth, confusion, depression or itching. Physical dependence, meaning you have withdrawal symptoms when a medication is stopped ? this can develop within a few days. KNOW YOUR RESPONSIBILITIES It is important to know exactly how much and how often to take the opioid pain medications you are prescribed. Never take opioids in higher amounts or more often than prescribed. Do not combine opioids with alcohol or other drugs that cause drowsiness, such as benzodiazepines, also known as benzos,including diazepam and alprazolam, muscle relaxants or sleep aids. Never sell or share prescriptionopioids. This is illegal. Store opioids in a secure place and out of reach of others (including children, family, friends and visitors). The last page(s) of this document has been signed and retained as a CHART COPY Signatures Patient Education Materials , Threatened Medication Leaflets My discharge plan and instructions have been reviewed and explained to me and I,GABRIELLE CARROLL V understand my current condition and have read and understand these discharge instructions. I have received a written copy of the plan/instructions. If I have questions, I am aware that I should contact my doctor. Patient/Surgical Assistant Certified Signature: Date/Time: Relationship to Patient: Witness Name/Signature: Date/Time: [facility]08-17-2022 Miscellaneous Notes* Telephone Encounter - Jolanta Robert APRN.MARY - 07/06/2022 3:32 PM EDT Notified of results patient is feeling better on the bactrim. Will follow up if symptoms worsen. [facility] Miscellaneous Notes* Telephone Encounter - Navya Brown LPN - 06/10/2022 11:58 AM EDT I spoke with patient and advised her of all information and instructions per Dr Reeves's note. Gabrielle did voice understanding and is agreeable. Navya Brown LPN June 10, 2022 11:58 AM * Telephone Encounter - Nvaya Brown LPN - 06/10/2022 11:53 AM EDT I left a message for patient Gabrielle to return call to office. Navya Brown LPN June 10, 2022 11:53 AM * Telephone Encounter - Barry Reeves MD - 06/09/2022 10:23 AM EDT Increase to 2 tabs * Telephone Encounter - Navya Brown LPN - 06/06/2022 2:30 PM EDT Patient called to report that she has been taking Trazodone 50 mg at bedtime as prescribed ever since her office visit with Dr Reeves on 03/23/22. Trazodone 50mg is not helping at all. She is still having insomnia. She said Dr Reeves told her to call the office if she was still having problems. Please advise. Navya Brown LPN June 06, 2022 2:31 PM documented in this encounterMadison [facility]04-15-2022 Evaluation + Plan note Extracted from: Title:Clinical Document Author:SOCO CAMPUZANO MD Date:03/04/22 [facility] ADMISSION HISTORY AN D PHYSICIAL CHIEF COMPLAINT: Lots of pain and cramping. HISTORY OF PRESENT ILLNESS: 21 y.o. G1 @ 9+2 weeks with history of threatening with multiple ultrasounds has had sac move down into [place] and during ER visit passed a sac intact with fetus in it. Patient continues to bleed actively and is being counseled for D&C to ensure decidua all out. REVIEW OF SYSTEMS: Pain stopped with passage of sac ACTIVE PROBLEMS: (5) Depression ([id number]) Headache ([id number]) Migraine ([id number]) ([id number]) Tonsillectomy ([id number]) MEDICATIONS: Active Inpt Meds: None Active PRN Meds: None One Time Meds: (Completed) HYDROmorphone (Dilaudid) Start: 03/04/22 5:15:00 EDT, Dose = 0.5 mg, = 0.5 mL, IV Push, Once, Stop: 03/04/22 5:15:00 EDT, 0, 03/04/22 5:13:00 EDT (Completed) Sodium Chloride 0.9% intravenous solution (Bolus NS 1000 mL) Start: 03/04/22 5:15:00 EDT, Dose = 1,000 mL, Soln, IV Bolus, Once, Stop: 03/04/22 5:15:00 EDT, Rate: 1,999 mL/hr, 03/04/22 5:05:00 EDT (Completed) ondansetron (Zofran) Start: 03/04/22 5:15:00 EDT, Dose = 4 mg, = 2 mL, IV Push, Once, Stop: 03/04/22 5:15:00 EDT, 03/04/22 5:13:00 EDT Active IV Meds: None ALLERGIES: (1) Imitrex FAMILY HISTORY: NA SOCIAL HISTORY: Engaged. Denies tobacco or alcohol use. PHYSICAL EXAM: VITALS: AuqneiJcflVAYrxyiGUSgS8QLC0EsjjQy(kg) 03/04 06:56--119/[id number]/58109.5 03/04 04:3936.7127/[id number] 24 Hr Tmax: 36.7 at 03/04 04:39 36 Hr Tmax: 36.7 at 03/04 04:39 Vital Signs are the last 5 in the past 48 hours. Weights display the last 5 within 7 days. Initial Wt: 03/04 111.5 kg 245 lb Current Wt: 03/04 111.5 kg 245 lb GENERAL: YWF crying as appropriate for situation HEENT:wnl CARDIOVASCULAR: Regular rate and rhythm RESPIRATORY: Clear to auscultation ABDOMEN:large soft, not informative EXREMETIES:NT, no gross edema NEUROLOGICAL:grossly wnl PSYCHIATRIC:grossly wnl LABS: 36hr Labs 03/04 0540 Creatinine Lvl (s)0.64 BUN8 Calcium Lvl9.3 Timgkhcc220 CO224 Glucose Qtclq711 Potassium Level4.1 Sodium Jtlim481 BUN/Creatinine Ratio12 hCG, rlbacgircddf81405.9 Electrolyte Uxedfvs19.0 GFR Non- Hzwaqrhl118 GFR Dlzulthp006 Hct39.7 Hgb13.5 MCH30.9 MCHC33.9 MCV90.9 MPV9.5 Eydplhus365 RBC4.37 RDW12.9 WBC11.60H Lymphocyte %25.1 Monocyte %4.9 Neutrophil %68.9 Eosinophil %0.8 Basophil %0.3 Neutrophil, Absolute8.00H Lymphocyte, Absolute2.90 Monocyte, Absolute0.60 Eosinophil, Absolute0.10 Basophil, Absolute0.00 DIAGNOSTICS: IMPRESSION: Spontaneous with continued bleeding PLAN: Suction D&C The patient and fianc were counseled as to suction D&C to help reduce the bleeding which was quite active because there might be more products of conception present. They had an opportunity to ask questions and to have them answered. She is Rh- and already received RhoGAM several days ago. Future Appointments Appointment Date:03/11/2022 08:30:00 AM Scheduled Provider: Location:[facility] Appointment Type:US OB < 14 weeks Appointment Date:03/17/2022 11:15:00 AM Scheduled Provider:ETHEL MARTE MD Location: [facility] Appointment Type: OV OB Routine Follow Up Appointment Date:03/25/2022 09:15:00 AM Scheduled Provider:ILSA MASCORRO Location: [facility] Appointment Type: OV OB Routine Follow Up Future Scheduled Tests Laboratory* Panel (AO) 03/03/22 * Panel (AO) 02/25/22 * HIV 1/2 Ab 02/25/22 * Varicella Zoster Antibody 02/25/22 * [facility] Lab Send out (Blood Specimens) 02/25/22 Radiology* US OB < 14 weeks 03/11/22 [facility] [place] 04-15-2022 Hospital Discharge instructions Patient Education 03/04/2022 09:04:06 Dilation and Curettage or Vacuum Curettage, Care After, [id number] Dilation and Curettage or Vacuum Curettage, Care After These instructions give you information about caring for yourself after your procedure. Your doctormay also give you more specific instructions. Call your doctor if you have any problems or questions after your procedure. Follow these instructions at home: Activity Do not drive or use heavy machinery while taking prescription pain medicine. For 24 hours after your procedure, avoid driving. Take short walks often, followed by rest periods. Ask your doctor what activities are safe for you.After one or two days, you may be able to return to your normal activities. Do not lift anything that is heavier than 10 lb (4.5 kg) until your doctor approves. For at least 2 weeks, or as long as told by your doctor: ?Do not douche. ?Do not use tampons. ?Do not have sex. General instructions Take [id number]-pqsnakn and prescription medicines only as told by your doctor. This is very important if you take blood thinning medicine. Do not take baths, swim, or use a hot tub until your doctor approves. Take showers instead of baths. Wear compression stockings as told by your doctor. It is up to you to get the results of your procedure. Ask your doctor when your results will be ready. Keep all follow-up visits as told by your doctor. This is important. Contact a doctor if: You have very bad cramps that get worse or do not get better with medicine. You have very bad pain in your belly (abdomen). You cannot drink fluids without throwing up (vomiting). You get pain in a different part of the area between your belly and thighs (pelvis). You have bad-smelling discharge from your vagina. You have a rash. Get help right away if: You are bleeding a lot from your vagina. A lot of bleeding means soaking more than one sanitary fab an hour, for 2 hours in a row. You have clumps of blood (blood clots) coming from your vagina. You have a fever or chills. Your belly feels very tender or hard. You have chest pain. You have trouble breathing. You cough up blood. You feel dizzy. You feel light-headed. You pass out (faint). You have pain in your neck or shoulder area. Summary Take short walks often, followed by rest periods. Ask your doctor what activities are safe for you.After one or two days, you may be able to return to your normal activities. Do not lift anything that is heavier than 10 lb (4.5 kg) until your doctor approves. Do not take baths, swim, or use a hot tub until your doctor approves. Take showers instead of baths. Contact your doctor if you have any symptoms of infection, like bad-smelling discharge from your vagina. This information is not intended to replace advice given to you by your health care provider. Make sure you discuss any questions you have with your health care provider. Document Released: 08/15/2009 Document Revised: 10/19/2018 Document Reviewed: 07/24/2017 [employer] Patient Education 2020 [employer] Follow Up Care 03/04/2022 04:20:35 With:KAITLIN CARROLL Address:Unknown When:Within 1 Week(s) [facility] 04-13-2022 Hospital Discharge instructions Patient Education 03/02/2022 05:00:46 Possible Miscarriage (Threatened ) Possible Miscarriage (Threatened ) You may be having a miscarriage. Common signs of a miscarriage are pain and bleeding. A small amount of bleeding can be normal during the first 3 months of . Often the pain and bleeding stop, and you have a normal pregnancyand baby. But heavy bleeding or severe cramping can be an early sign of miscarriage. A miscarriage means an unexpected loss of your . At this time, your healthcare provider doesn t know whether you will have a miscarriage, or if things will clear up and your will continue normally. This can be emotionally difficult. Thereis little that can be done to change the way you feel. But understand that miscarriages are common. About 1 or 2 out of every [address] Some even end before you know you are . This happens for a number of reasons, and usually the cause is never known. It s important you know that it is not your fault. It didn t happen because you did anything wrong. Having sex or exercising does not cause a miscarriage. These activities are usually safe unless youhave pain or bleeding or your doctor tells you to stop. Even minor falls won t cause a miscarriage.Miscarriages happen because things were not developing as they were supposed to. No medicine can prevent a miscarriage. Again, understand that things are uncertain right now. You may still have some bleeding. This may be light spotting or like a period, and you may pass some tissue. You may have some cramping. This iswhy follow-up care is important. Home care To improve the chance of keeping your , you should take these steps: Rest in bed until the pain and bleeding stop. Don t have sex until your healthcare provider says it s OK. Use sanitary napkins instead of tampons. Don t douche. Don t take aspirin, ibuprofen, or naproxen. Don t have alcoholic or caffeinated beverages or smoke. Follow-up care Make an appointment with your doctor within the next week, or as directed. If you had an ultrasound, a radiologist will review it. You will be told of any new findings that may affect your care. Call 911 Call 911 if you have: Severe pain and very heavy bleeding Severe lightheadedness, passing out, or fainting Rapid heart rate Difficulty breathing Confusion or difficulty waking up When to seek medical advice Call your healthcare provider right away if any of these occur: Vaginal bleeding or pain that lasts for more than 3 days Heavy bleeding. This means soaking 1 new pad an hour over 3 hours. Fever of 100.4 F (38 C) or higher, or as directed by your healthcare provider Pain in your lower belly (abdomen) that gets worse Weakness or dizziness Passage of anything that resembles tissue. This would be pink or grayish membrane or solid material. Save the tissue in a clean container and bring it to your provider. [phone] [employer]. [address] [place] [address], [place] [address]. All rights reserved. This information is not intended as a substitute for professional medical care. Always follow [facility] professional's instructions. Follow Up Care 03/02/2022 01:27:39 With:SOCO CAMPUZANO MD Address: [address] [facility] [address] [facility] [address]- [phone] When:2-4 days [facility] Anesthesiology Consult note* JOCELIN LUQUE: PERFORM, SIGN, VERIFY Event Display: Anesthesiology Consultation Authored Date: Patient: GABRIELLE CARROLL V Age: 23 years Sex: Female : 2000 Associated Diagnoses: None Author: JOCELIN LUQUE Preoperative Information pt is currently eating dinner Anesthesia history Patient's history: negative. Family's history: negative. Review of Systems Ear/Nose/Mouth/Throat: wears glasses. Respiratory: asthma - only uses inhaler when pt is sick, has been well controlled recently. Cardiovascular: Negative except as documented in history of present illness. Gastrointestinal: ; oligohydramnios; BMI 45 - class 3 obesity; gerd - denies symptoms currently, takes tums PRN; IBS; non alcoholic fatty liver dx. Genitourinary: Negative except as documented in history of present illness.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 10/07/2023 11:00 EST Blood Glucose, Capillary 148 mg/dL HI Blood Glucose Testing Reason Routine Blood Glucose Interventions Notify physician Uterine Contraction Monitoring Method External toco Uterine Contraction Intensity, Ext Palp Not palpable Uterine Resting Tone, External Soft Uterine Activity Not lizeth Patient Position, OB Semi-Ramirez's Baby A FHR Baseline: 155 bpm FHR Baseline Variability: Moderate variability FHR Accelerations: Present FHR Deceleration: Absent FHR Monitoring Method: External US transducer Activity Status ADL Awake Standard Safety Safety level maintained, Precautions maintained 10/07/2023 10:00 EST Uterine Contraction Monitoring Method External toco Uterine Contraction Intensity, Ext Palp Not palpable Uterine Resting Tone, External Soft Uterine Activity Not lizeth Patient Position, OB Semi-Ramirez's Baby A FHR Baseline: 135 bpm FHR Baseline Variability: Moderate variability FHR Accelerations: Present FHR Deceleration: Absent FHR Interpretation Category: Category One FHR Monitoring Method: External US transducer Activity Status ADL Awake Breakfast Percent 100 % Standard Safety Safety level maintained, Precautions maintained 10/07/2023 9:19 EST Lactated Ringers Injection Begin Bag 1,000 mL mL 10/07/2023 9:00 EST Uterine Contraction Monitoring Method External toco Uterine Contraction Frequency Occ Uterine Contraction Duration 30 sec Uterine Contraction Intensity, Ext Palp Not palpable Uterine Resting Tone, External Soft Uterine Activity Occasional contractions Patient Position, OB Left tilt, Semi-Ramirez's Baby A FHR Baseline: 135 bpm FHR Baseline Variability: Moderate variability FHR Accelerations: Present FHR Monitoring Method: External US transducer Activity Status ADL Awake Standard Safety Safety level maintained, Precautions maintained 10/07/2023 8:27 EST Notify date/time 10/07/2023 8:21 Provider Notified ANTONIO BRIZUELA Notification Method Phone Information Communicated Bedside blood glucose result(s) Details Communicated Notified of fasting blood sugar 111 Notification Outcome Orders not received Person Reporting Result(s) Jessica Vu Rn Results Read Back Yes 10/07/2023 8:25 EST Ed-Plan of Care Verbalizes/Nonverbally indicates understanding Ed-Safety, Fall Verbalizes/Nonverbally indicates understanding Individuals Taught Patient Learning Readiness Willing to learn Barriers to Learning None evident Teaching Method Explanation Preferred Spoken Language Jordanian Preferred Written Language Jordanian Family/Caregiver Prefer Spoken Language Jordanian Family/Caregiver Prefer Written Language Jordanian Ed- Monitoring Verbalizes/Nonverbally indicates understanding Ed-Contractions Verbalizes/Nonverbally indicates understanding Ed- Labor Verbalizes/Nonverbally indicates understanding Ed-LD Safety Verbalizes/Nonverbally indicates understanding Ed-Room Orientation Verbalizes/Nonverbally indicates understanding Able To Drink Order Detail Yes Able To Sign Consents Order Detail Yes Code Status Order Detail Full code IV Order Detail Yes Dialysis Schedule Order Detail N/A Has Diabetes Order Detail Yes Isolation Precautions Order Detail None Nurse Collect Order Detail 0 Oxygen Order Detail No Order Detail Yes Prior Valve Replacement Order Detail No Transport Mode Order Detail Ambulatory 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 Details Form 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 Details Form 10/07/2023 8:24 EST O-Remains Free From Injury Met Edu-Pain Management Verbalizes/Nonverbally indicates understanding Ed- Monitoring Verbalizes/Nonverbally indicates understanding Ed-Safety Verbalizes/Nonverbally indicates understanding Ed-Discharge instructions Needs further teaching Ed-Complications of Labor/Delivery Verbalizes/Nonverbally indicates understanding Ed-Patient/Caregiver about Hand Hygiene Done 10/07/2023 8:15 EST Blood Glucose, Capillary 111 mg/dL HI Blood Glucose Testing Reason Routine Blood Glucose Interventions Notify physician Temperature Oral 36.9 DegC Heart Rate Monitored 84 bpm Respiratory Rate 18 br/min Systolic Blood Pressure Non-Invasive 95 mmHg Diastolic Blood Pressure Non-Invasive 43 mmHg <LLOW Blood Pressure Method Automatic Blood Pressure Location Left arm Blood Pressure Cuff Size Large Reason For Taking VItal Signs Routine Primary Pain Intensity 0 Pain Scale Type 0-10 Pain scale Heart Rhythm Regular Murmur Auscultated No Dorsalis Pedis Pulse, Left 2+ Normal Dorsalis Pedis Pulse, Right 2+ Normal Generalized Bilateral Edema Ratin+ trace/2mm Pedal edema Bilateral Edema Ratin+ trace/2mm Respirations Unlabored Respiratory Pattern Regular Breath Sounds Auscultated Anterior and posterior All Lobes Breath Sounds Clear, Equal Oxygen Therapy Room air Oxygen Saturation 99 % Abdomen Description Non-distended, Soft Bowel Continence Continent Swallowing Disorder None Bowel Sounds All Quadrants Present Tolerating Oral Intake Yes Urinary Elimination Voiding, no difficulties Bladder Distention Absent Uterine Contraction Monitoring Method External toco Uterine Contraction Intensity, Ext Palp Not palpable Uterine Resting Tone, External Soft Uterine Activity Not lizeth Patient Position, OB Left tilt, Semi-Ramirez's Baby A FHR Baseline: 135 bpm FHR Baseline Variability: Moderate variability FHR Accelerations: Present FHR Deceleration: Absent FHR Interpretation Category: Category One FHR Monitoring Method: External US transducer Patient Coping Loli w/stresses of , care Support Person Not present Patient feelings/concerns Discusses care, feelings, concerns Skin Temperature Warm Skin Description [place], Dry Skin Integrity Intact, Pressure points intact Sensory Perception Dioni No impairment Moisture Dioni Rarely moist Activity Dioni Walks occasionally Mobility Dioni No limitations Nutrition Dioni Adequate Friction and Shear Dioni No apparent problem Dioni Score 21 Hospital Acquired Pressure Injury Risk None/minimal risk (score 19-23) Antecubital Right 10/06/2023 18 gauge Peripheral IV Activity: Assessed Peripheral IV Dressing Condition: Clean, Dry, Intact Peripheral IV Dressing Activity: Transparent dressing Peripheral IV Line Status/Patency: Continuous infusion Peripheral IV Site Condition: No complications Peripheral IV Equipment: IV Pump, PRN Adaptor Neurological Symptoms Patient denies Level of Consciousness Alert Strength All Extremities Strong Tone All Extremities Normal Melendrez Screen Daily History of Fall in Last 3 Months Melendrez No Presence of Secondary Diagnosis Melendrez No Use of Ambulatory Aid Melendrez None, bedrest, wheelchair, nurse IV/PRN Adapter Fall Risk Melendrez Yes Gait Weak or Impaired Fall Risk Melendrez Normal, bedrest, immobile Mental Status Fall Risk Melendrez Oriented to own ability Melendrez Fall Risk Score 20 Violence Risk Confused No Violence Risk Irritable No Violence Risk Boisterous No Violence Risk Verbal Threats No Violence Risk Physical Threats No Violence Risk Attacking Objects No Violence Risk Predictor Score 0 Violence Risk Intervention None Violence Risk Current Interventions None Affect/Behavior Appropriate, Calm, Cooperative Appearance Clean Orientation Oriented x 4 Orientation Assessment Oriented x 4 Memory Recall Ability Current season, Location of own room, Staff names and faces Positioning Repositions self Activity Status ADL Awake Hair Care Independent Oral Care Independent Maddi Care Independent Nurse Safety Checks q2hrs Performed 7am-7pm Standard Safety ID band on, Allergy Band on, Call device within reach, Bed in low position, Wheels locked, Upper/Half-Length side-rails up, Phone within reach, personal items within reach, Safety level maintained, Non-Slip footwear, Precautions maintained Demonstrates Correct Call Light Use Yes RN Coordination of Care 7am-7pm Adaptive Feeding Equipment None Appetite Good Eating Difficulties None 10/07/2023 8:12 EST aspirin 81 mg mg 10/07/2023 8:00 EST Uterine Contraction Monitoring Method External toco Uterine Contraction Intensity, Ext Palp Not palpable Uterine Resting Tone, External Soft Uterine Activity Not lizeth Patient Position, OB Semi-Ramirez's Baby A FHR Monitoring Method: External US transducer Heart Tone: 135 10/07/2023 7:30 EST Nurse Receiving Report Jessica Vu RN Date/Time Nurse Received Report 10/07/2023 7:30 10/07/2023 7:07 EST Positioning Repositions self Activity Status ADL Resting Standard Safety Safety level maintained, Precautions maintained 10/07/2023 6:58 EST Uterine Contraction Monitoring Method External toco Uterine Contraction Intensity, Ext Palp Not palpable Uterine Resting Tone, External Soft Uterine Activity Not lizeth Patient Position, OB Left tilt Baby A FHR Baseline: 135 bpm FHR Baseline Variability: Moderate variability FHR Accelerations: Present FHR Deceleration: Absent FHR Monitoring Method: External US transducer 10/07/2023 6:00 EST Uterine Contraction Monitoring Method External toco Uterine Contraction Intensity, Ext Palp Not palpable Uterine Resting Tone, External Soft Uterine Activity Not lizeth Patient Position, OB Semi-Ramirez's Baby A FHR Baseline: 135 bpm FHR Baseline Variability: Moderate variability FHR Accelerations: Present FHR Deceleration: Absent FHR Monitoring Method: External US transducer 10/07/2023 5:00 EST Uterine Contraction Monitoring Method External toco Uterine Contraction Intensity, Ext Palp Not palpable Uterine Resting Tone, External Soft Uterine Activity Not lizeth Patient Position, OB Semi-Ramirez's Baby A FHR Baseline: 130 bpm FHR Baseline Variability: Moderate variability FHR Accelerations: Present FHR Deceleration: Absent FHR Monitoring Method: External US transducer 10/07/2023 4:52 EST Temperature Oral 36.9 DegC Heart Rate Monitored 92 bpm Respiratory Rate 20 br/min Systolic Blood Pressure Non-Invasive 103 mmHg Diastolic Blood Pressure Non-Invasive 45 mmHg <LLOW Reason For Taking VItal Signs Routine Primary Pain Intensity 0 Pain Scale Type 0-10 Pain scale Heart Rhythm Regular Oxygen Therapy Room air Oxygen Saturation 97 % Antecubital Right 10/06/2023 18 gauge Peripheral IV Activity: Assessed Peripheral IV Dressing Condition: Clean, Dry, Intact Peripheral IV Dressing Activity: Transparent dressing Peripheral IV Line Status/Patency: Continuous infusion Peripheral IV Site Condition: No complications Peripheral IV Equipment: IV Pump Neurological Symptoms Patient denies Strength All Extremities Strong Tone All Extremities Normal Positioning Repositions self Activity Status ADL Sleeps intermittently Standard Safety Safety level maintained, Precautions maintained 10/07/2023 4:00 EST Uterine Contraction Monitoring Method External toco Uterine Contraction Intensity, Ext Palp Not palpable Uterine Resting Tone, External Soft Uterine Activity Not lizeth Patient Position, OB Right lateral Baby A FHR Baseline: 120 bpm FHR Baseline Variability: Moderate variability FHR Accelerations: Present FHR Deceleration: Absent FHR Monitoring Method: External US transducer 10/07/2023 3:02 EST Uterine Contraction Monitoring Method External toco Uterine Contraction Intensity, Ext Palp Not palpable Uterine Resting Tone, External Soft Uterine Activity Not lizeth Patient Position, OB Right lateral Baby A FHR Baseline: 130 bpm FHR Baseline Variability: Marked variability FHR Accelerations: Present FHR Deceleration: Absent FHR Monitoring Method: External US transducer 10/07/2023 2:58 EST Positioning Repositions self Activity Status ADL Resting, Watching TV Standard Safety Safety level maintained, Precautions maintained 10/07/2023 2:36 EST Patient Position, OB Right lateral 10/07/2023 2:00 EST Uterine Contraction Monitoring Method External toco Uterine Contraction Intensity, Ext Palp Not palpable Uterine Resting Tone, External Soft Uterine Activity Not lizeth Baby A FHR Baseline: 130 bpm FHR Baseline Variability: Moderate variability FHR Accelerations: Present FHR Deceleration: Absent FHR Monitoring Method: External US transducer Antecubital Right 10/06/2023 18 gauge Peripheral IV Activity: Assessed Peripheral IV Dressing Condition: Clean, Dry, Intact Peripheral IV Dressing Activity: Transparent dressing Peripheral IV Line Status/Patency: Continuous infusion Peripheral IV Site Condition: No complications Peripheral IV Equipment: IV Pump Positioning Repositions self Activity Status ADL Awake, Watching TV Standard Safety Safety level maintained, Precautions maintained 10/07/2023 0:58 EST Uterine Contraction Monitoring Method External toco Uterine Contraction Intensity, Ext Palp Not palpable Uterine Resting Tone, External Soft Uterine Activity Not lizeth Patient Position, OB Right tilt Baby A FHR Baseline: 140 bpm FHR Baseline Variability: Moderate variability FHR Accelerations: Present FHR Deceleration: Absent FHR Interpretation Category: Category One FHR Monitoring Method: External US transducer Positioning Repositions self Activity Status ADL Sleeps intermittently Standard Safety Safety level maintained, Precautions maintained 10/07/2023 0:13 EST O-Remains Free From Injury Met Edu-Pain Management Verbalizes/Nonverbally indicates understanding Ed- Monitoring Verbalizes/Nonverbally indicates understanding Ed-Safety Verbalizes/Nonverbally indicates understanding Ed-Discharge instructions Verbalizes/Nonverbally indicates understanding Ed-Complications of Labor/Delivery Verbalizes/Nonverbally indicates understanding Ed-Patient/Caregiver about Hand Hygiene Done Able To Drink Order Detail Yes Able To Sign Consents Order Detail Yes Code Status Order Detail Full code IV Order Detail Yes Dialysis Schedule Order Detail N/A Has Diabetes Order Detail Yes Isolation Precautions Order Detail None Nurse Collect Order Detail 0 Oxygen Order Detail No Order Detail Yes Prior Valve Replacement Order Detail No Transport Mode Order Detail Ambulatory 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 Details Form 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 Details Form 10/07/2023 0:08 EST Temperature Oral 36.9 DegC Heart Rate Monitored 106 bpm HI Respiratory Rate 20 br/min Systolic Blood Pressure Non-Invasive 106 mmHg Diastolic Blood Pressure Non-Invasive 45 mmHg <LLOW Reason For Taking VItal Signs Routine Primary Pain Intensity 0 Pain Scale Type 0-10 Pain scale Heart Rhythm Regular Murmur Auscultated No Dorsalis Pedis Pulse, Left 2+ Normal Dorsalis Pedis Pulse, Right 2+ Normal Generalized Bilateral Edema Ratin+ trace/2mm Pedal edema Bilateral Edema Ratin+ trace/2mm Respirations Unlabored Respiratory Pattern Regular All Lobes Breath Sounds Clear, Equal Cough None Oxygen Therapy Room air Oxygen Saturation 99 % Abdomen Description Non-distended, Soft, Rounded Swallowing Disorder None Bowel Sounds All Quadrants Present Urinary Elimination Voiding, no difficulties Uterine Contraction Monitoring Method External toco Uterine Contraction Intensity, Ext Palp Not palpable Uterine Resting Tone, External Soft Uterine Activity Not lizeth Patient Position, OB Left tilt, Semi-Ramirez's Baby A FHR Baseline: 150 bpm FHR Baseline Variability: Moderate variability FHR Accelerations: Present FHR Deceleration: Absent FHR Interpretation Category: Category One FHR Monitoring Method: External US transducer Support Person Not present Patient feelings/concerns Discusses care, feelings, concerns Skin Temperature Warm Skin Description [place], Dry Skin Integrity Intact Sensory Perception Dioni No impairment Moisture Dioni Rarely moist Activity Dioni Walks frequently Mobility Dioni No limitations Nutrition Dioni Adequate Friction and Shear Dioni No apparent problem Dioni Score 22 Hospital Acquired Pressure Injury Risk None/minimal risk (score 19-23) Antecubital Right 10/06/2023 18 gauge Peripheral IV Activity: Assessed Peripheral IV Dressing Condition: Clean, Dry, Intact Peripheral IV Dressing Activity: Transparent dressing Peripheral IV Line Status/Patency: Continuous infusion Peripheral IV Site Condition: No complications Peripheral IV Equipment: IV Pump Neurological Symptoms Patient denies Strength All Extremities Strong Tone All Extremities Normal Melendrez Screen Daily History of Fall in Last 3 Months Melendrez No Presence of Secondary Diagnosis Melendrez No Use of Ambulatory Aid Melendrez None, bedrest, wheelchair, nurse IV/PRN Adapter Fall Risk Melendrez Yes Gait Weak or Impaired Fall Risk Melendrez Normal, bedrest, immobile Mental Status Fall Risk Melendrez Oriented to own ability Melendrez Fall Risk Score 20 Violence Risk Confused No Violence Risk Irritable No Violence Risk Boisterous No Violence Risk Verbal Threats No Violence Risk Physical Threats No Violence Risk Attacking Objects No Violence Risk Predictor Score 0 Violence Risk Intervention None Violence Risk Current Interventions None Positioning Repositions self Activity Status ADL Awake, Watching TV Nurse Safety Checks q2hrs Performed 7pm-7am Standard Safety ID band on, Allergy Band on, Call device within reach, Bed in low position, Wheels locked, Upper/Half-Length side-rails up, Phone within reach, personal items within reach, Hazards removed from floor, Non-Slip footwear RN Coordination of Care 7pm-7am Appetite Good 10/06/2023 23:00 EST Blood Glucose, Capillary 95 mg/dL Blood Glucose Testing Reason Routine Uterine Contraction Monitoring Method External toco Uterine Contraction Intensity, Ext Palp Not palpable Uterine Resting Tone, External Soft Uterine Activity Not lizeth Baby A FHR Baseline: 145 bpm FHR Baseline Variability: Moderate variability FHR Accelerations: Present FHR Deceleration: Absent FHR Monitoring Method: External US transducer Positioning Repositions self Activity Status ADL Awake Standard Safety Safety level maintained, Precautions maintained 10/06/2023 22:44 EST Antecubital Right 10/06/2023 18 gauge Peripheral IV Activity: Assessed Peripheral IV Dressing Condition: Clean, Dry, Intact Peripheral IV Dressing Activity: Transparent dressing Peripheral IV Line Status/Patency: Continuous infusion Peripheral IV Site Condition: No complications Peripheral IV Equipment: IV Pump 10/06/2023 22:00 EST Uterine Contraction Monitoring Method External toco Uterine Contraction Intensity, Ext Palp Not palpable Uterine Resting Tone, External Soft Uterine Activity Not lizeth Patient Position, OB Right tilt Baby A FHR Baseline: 145 bpm FHR Baseline Variability: Moderate variability FHR Accelerations: Present FHR Deceleration: Absent FHR Interpretation Category: Category One FHR Monitoring Method: External US transducer 10/06/2023 21:04 EST Blood Type, External Not Done: Not Appropriate at this Time (Not Done) Rubella, External Not Done: Not Appropriate at this Time (Not Done) HIV Antibodies, External Not Done: Not Appropriate at this Time (Not Done) Group B Strep, External Not Done: Not Appropriate at this Time (Not Done) Hepatitis B, External Not Done: Not Appropriate at this Time (Not Done) RPR, External Not Done: Not Appropriate at this Time (Not Done) Designated Person #1 We May Share PHI Not Done: Not Appropriate at this Time (Not Done) Designated Person #1 Relationship Not Done: Not Appropriate at this Time (Not Done) Privacy Restrictions Requested Not Done: Not Appropriate at this Time (Not Done) Height Not Done: Not Appropriate at this Time (Not Done) Height Not Done: Not Appropriate at this Time (Not Done) Admission Weight Not Done: Not Appropriate at this Time (Not Done) Admission Weight Not Done: Not Appropriate at this Time (Not Done) Expected Outcome Not Done: Not Appropriate at this Time (Not Done) Patient Type Not Done: Not Appropriate at this Time (Not Done) Status Not Done: Not Appropriate at this Time (Not Done) PPH Risk Not Done: Not Appropriate at this Time (Not Done) Baby For Adoption Not Done: Not Appropriate at this Time (Not Done) Surrogate Not Done: Not Appropriate at this Time (Not Done) Discharge [place] Physician Not Done: Not Appropriate at this Time (Not Done) WIC Participant Not Done: Not Appropriate at this Time (Not Done) Safe Sleep Environment for Baby Not Done: Not Appropriate at this Time (Not Done) Safe Sleep Environment Outside Home Not Done: Not Appropriate at this Time (Not Done) Maternal Transport Not Done: Not Appropriate at this Time (Not Done) Thoughts of Harming Others - History Not Done: Not Appropriate at this Time (Not Done) Thoughts of Suicide - History Not Done: Not Appropriate at this Time (Not Done) Coping Not Done: Not Appropriate at this Time (Not Done) Emotional Abuse History Not Done: Not Appropriate at this Time (Not Done) Physical Abuse History Not Done: Not Appropriate at this Time (Not Done) Sexual Abuse Not Done: Not Appropriate at this Time (Not Done) Hospital Clergy to Visit Not Done: Not Appropriate at this Time (Not Done) Financial Concerns Re: Hospital/Disch Not Done: Not Appropriate at this Time (Not Done) Living Situation Not Done: Not Appropriate at this Time (Not Done) Current Home Treatments Not Done: Not Appropriate at this Time (Not Done) Professional Skilled Services Not Done: Not Appropriate at this Time (Not Done) Special Services and Community Resources Not Done: Not Appropriate at this Time (Not Done) Advanced Directives Not Done: Not Appropriate at this Time (Not Done) Infectious Disease Symptoms Not Done: Not Appropriate at this Time (Not Done) Infectious Disease Recent Exposure Not Done: Not Appropriate at this Time (Not Done) Preferred Spoken Language Not Done: Not Appropriate at this Time (Not Done) Preferred Written Language Not Done: Not Appropriate at this Time (Not Done) Teaching Evaluation Not Done: Not Appropriate at this Time (Not Done) Safety Brochure Information Reviewed Not Done: Not Appropriate at this Time (Not Done) Rambo Jackson Video Viewed Not Done: Not Appropriate at this Time (Not Done) Chief Complaint Not Done: Not Appropriate at this Time (Not Done) Mode of Arrival Not Done: Not Appropriate at this Time (Not Done) Information Given by Not Done: Not Appropriate at this Time (Not Done) Emergency Contact Number Not Done: Not Appropriate at this Time (Not Done) Belongings At Bedside Not Done: Not Appropriate at this Time (Not Done) Personal Home Medications Received Not Done: Not Appropriate at this Time (Not Done) Belongings Sent Home Not Done: Not Appropriate at this Time (Not Done) Belongings to Security/Secured in Dept Not Done: Not Appropriate at this Time (Not Done) Discharge To, Anticipated Not Done: Not Appropriate at this Time (Not Done) Other Anticipated Needs After Discharge Not Done: Not Appropriate at this Time (Not Done) Anticoagulants Taken In Past 6 Wks. Not Done: Not Appropriate at this Time (Not Done) Prev Test Positive/Diagnosis w/COVID-19 Not Done: Not Appropriate at this Time (Not Done) Current Quarantine/Isolated any Illness Not Done: Not Appropriate at this Time (Not Done) Any Contact with Sick Animals/Birds Not Done: Not Appropriate at this Time (Not Done) Traveled Anywhere in Last 30 Days Not Done: Not Appropriate at this Time (Not Done) Influenza Vaccine Need Not Done: Not Appropriate at this Time (Not Done) Not Done: Not Appropriate at this Time (Not Done) Able To Drink Order Detail Not Done: Not Appropriate at this Time (Not Done) Able To Drink Order Detail Not Done: Not Appropriate at this Time (Not Done) Able To Sign Consents Order Detail Not Done: Not Appropriate at this Time (Not Done) Able To Sign Consents Order Detail Not Done: Not Appropriate at this Time (Not Done) Code Status Order Detail Not Done: Not Appropriate at this Time (Not Done) Code Status Order Detail Not Done: Not Appropriate at this Time (Not Done) IV Order Detail Not Done: Not Appropriate at this Time (Not Done) IV Order Detail Not Done: Not Appropriate at this Time (Not Done) Dialysis Schedule Order Detail Not Done: Not Appropriate at this Time (Not Done) Dialysis Schedule Order Detail Not Done: Not Appropriate at this Time (Not Done) Has Diabetes Order Detail Not Done: Not Appropriate at this Time (Not Done) Has Diabetes Order Detail Not Done: Not Appropriate at this Time (Not Done) Isolation Precautions Order Detail Not Done: Not Appropriate at this Time (Not Done) Isolation Precautions Order Detail Not Done: Not Appropriate at this Time (Not Done) Nurse Collect Order Detail Not Done: Not Appropriate at this Time (Not Done) Nurse Collect Order Detail Not Done: Not Appropriate at this Time (Not Done) Oxygen Order Detail Not Done: Not Appropriate at this Time (Not Done) Oxygen Order Detail Not Done: Not Appropriate at this Time (Not Done) Order Detail Not Done: Not Appropriate at this Time (Not Done) Order Detail Not Done: Not Appropriate at this Time (Not Done) Prior Valve Replacement Order Detail Not Done: Not Appropriate at this Time (Not Done) Prior Valve Replacement Order Detail Not Done: Not Appropriate at this Time (Not Done) Transport Mode Order Detail Not Done: Not Appropriate at this Time (Not Done) Transport Mode Order Detail Not Done: Not Appropriate at this Time (Not Done) 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 Details Form Not Done (Not Done) Anesthesia/Transfusions Not Done: Not Appropriate at this Time (Not Done) 10/06/2023 21:00 EST Uterine Contraction Monitoring Method External toco Uterine Contraction Intensity, Ext Palp Not palpable Uterine Resting Tone, External Soft Uterine Activity Not lizeth Baby A FHR Baseline: 150 bpm FHR Baseline Variability: Moderate variability FHR Accelerations: Present FHR Deceleration: Absent FHR Monitoring Method: External US transducer Lactated Ringers Injection Begin Bag 1,000 mL mL 10/06/2023 20:59 EST Antecubital Right 10/06/2023 18 gauge Peripheral IV Activity: Insert new site Peripheral IV Dressing Condition: Clean, Dry, Intact Peripheral IV Dressing Activity: Transparent dressing Peripheral IV Line Status/Patency: Flushes easily, 10ml normal saline flush Peripheral IV Site Condition: No complications Peripheral IV Equipment: Extension set, Stopcock, IV Pump, PRN Adaptor Peripheral IV Number of Attempts: 2 Positioning Repositions self Activity Status ADL Awake Standard Safety Safety level maintained, Precautions maintained 10/06/2023 20:38 EST Patient Information Note pt IV site inflitrated pt IV site changed, ice pck placed on infiltrated IV site Antecubital Left 10/06/2023 20 gauge Peripheral IV Activity: Discontinued Peripheral IV Dressing Activity: Removed Peripheral IV Site Condition: Cool to touch, Edema Peripheral IV Site Care: Cold compress Peripheral IV Removal: Catheter intact, no resistance Peripheral IV Removal Reason: Site change 10/06/2023 20:20 EST Blood Glucose Testing Reason Routine 10/06/2023 20:19 EST Ed- Monitoring Verbalizes/Nonverbally indicates understanding Ed-Complications of Labor/Delivery Verbalizes/Nonverbally indicates understanding 10/06/2023 20:18 EST O-Remains Free From Injury Met Edu-Pain Management Verbalizes/Nonverbally indicates understanding Ed-Safety Verbalizes/Nonverbally indicates understanding Ed-Discharge instructions Verbalizes/Nonverbally indicates understanding Ed-Patient/Caregiver about Hand Hygiene Done 10/06/2023 20:01 EST Patient Information Note post meal blood sugar check 10/06/2023 20:00 EST Blood Glucose, Capillary 104 mg/dL Notify date/time 10/06/2023 19:35 Provider Notified ANTONIO BRIZUELA Notification Method Phone Information Communicated Nurse communication Details Communicated updated on pt status Notification Outcome Orders received Person Reporting Result(s) skinny bonner rn Details of Results Received ordres for blood sugar checks with perameters to call Results Read Back Yes Patient Information Note pt moved from room 213 to 211 Temperature Oral 36.7 DegC Heart Rate Monitored 92 bpm Respiratory Rate 20 br/min Systolic Blood Pressure Non-Invasive 102 mmHg Diastolic Blood Pressure Non-Invasive 58 mmHg LOW Reason For Taking VItal Signs Routine Primary Pain Intensity 0 Pain Scale Type 0-10 Pain scale Heart Rhythm Regular Respirations Unlabored Respiratory Pattern Regular All Lobes Breath Sounds Clear, Equal Oxygen Therapy Room air Oxygen Saturation 98 % Bowel Sounds All Quadrants Present Urinary Elimination Voiding, no difficulties Uterine Contraction Monitoring Method External toco Uterine Contraction Intensity, Ext Palp Not palpable Uterine Resting Tone, External Soft Uterine Activity Not lizeth Patient Position, OB Left tilt, Semi-Ramirez's Baby A FHR Baseline: 145 bpm FHR Baseline Variability: Moderate variability FHR Accelerations: Present FHR Deceleration: Absent FHR Interpretation Category: Category One FHR Monitoring Method: External US transducer Membrane Status: Intact Support Person Not present Patient feelings/concerns Discusses care, feelings, concerns Sensory Perception Dioni No impairment Moisture Dioni Rarely moist Activity Dioni Walks frequently Mobility Dioni No limitations Nutrition Dioni Excellent Friction and Shear Dioni No apparent problem Dioni Score 23 Hospital Acquired Pressure Injury Risk None/minimal risk (score 19-23) Antecubital Left 10/06/2023 20 gauge Peripheral IV Activity: Assessed Peripheral IV Dressing Condition: Clean, Dry, Intact Peripheral IV Dressing Activity: Transparent dressing Peripheral IV Line Status/Patency: Continuous infusion Peripheral IV Site Condition: No complications Peripheral IV Equipment: IV Pump Neurological Symptoms Patient denies Strength All Extremities Strong Tone All Extremities Normal Melendrez Screen Daily History of Fall in Last 3 Months Melendrez No Presence of Secondary Diagnosis Melendrez No Use of Ambulatory Aid Melendrez None, bedrest, wheelchair, nurse IV/PRN Adapter Fall Risk Melendrez Yes Gait Weak or Impaired Fall Risk Melendrez Normal, bedrest, immobile Mental Status Fall Risk Melendrez Oriented to own ability Melendrez Fall Risk Score 20 Violence Risk Confused No Violence Risk Irritable No Violence Risk Boisterous No Violence Risk Verbal Threats No Violence Risk Physical Threats No Violence Risk Attacking Objects No Violence Risk Predictor Score 0 Violence Risk Intervention None Violence Risk Current Interventions None Ambulation Ambulation in Room Pt./Caregiver Remote Cont.Visual Monitor Verbalizes/Nonverbally indicates understanding Mobility Assistance Level Independent Ambulation Patient Effort Good Activity Status ADL Awake Nurse Safety Checks q2hrs Performed 7pm-7am Standard Safety ID band on, Allergy Band on, Call device within reach, Bed in low position, Wheels locked, Upper/Half-Length side-rails up, Phone within reach, personal items within reach, Hazards removed from floor, Non-Slip footwear RN Coordination of Care 7pm-7am 10/06/2023 19:54 EST Monitoring Annotations Labor 10/06/2023 19:00 EST Uterine Contraction Monitoring Method External toco Uterine Contraction Frequency 0 Uterine Contraction Duration 0 Uterine Contraction Intensity, Ext Palp Not palpable Uterine Resting Tone, External Soft Uterine Activity Not lizeth Baby A FHR Baseline: 145 bpm FHR Baseline Variability: Moderate variability FHR Accelerations: Present FHR Deceleration: Absent FHR Interpretation Category: Category One FHR Monitoring Method: External US transducer 10/06/2023 18:45 EST UA Specimen Type Clean Catch UA Color Yellow UA Appear Clear UA Spec Grav 1.020 UA Glucose Negative mg/dL UA Bili Negative UA Ketones Negative mg/dL UA Blood Negative UA pH 6.0 UA Protein Negative mg/dL UA Urobilinogen 0.2 E.U./dL UA Nitrite Negative UA Leuk Est Trace UA RBC None Seen /HPF UA WBC 0-5 /HPF UA Squam Epithelial 0-5 /HPF 10/06/2023 18:38 EST multivitamin, Not Done: Other (Not Done) 10/06/2023 18:36 EST Monitoring Annotations up to bathroom 10/06/2023 18:30 EST aspirin Not Done: Other (Not Done) calcium carbonate Not Done: Not Appropriate at this Time (Not Done) ferrous sulfate Not Done: Other (Not Done) 10/06/2023 18:10 EST Blood Glucose, Capillary 117 mg/dL HI 10/06/2023 18:06 EST Monitoring Annotations sitting up to eat dinner 10/06/2023 18:00 EST Uterine Contraction Monitoring Method External toco Uterine Contraction Frequency 0 Uterine Contraction Duration 0 Uterine Contraction Intensity, Ext Palp Not palpable Uterine Resting Tone, External Soft Uterine Activity Not lizeth Baby A FHR Baseline: 145 bpm FHR Baseline Variability: Moderate variability FHR Accelerations: Present FHR Deceleration: Absent FHR Interpretation Category: Category One FHR Monitoring Method: External US transducer 10/06/2023 17:48 EST WBC 8.0 10^3/mcL RBC 3.75 10^6/mcL LOW Hgb 10.8 G/dL LOW Hct 32.5 % LOW MCV 86.6 fL MCH 28.9 pg MCHC 33.3 G/dL RDW 13.8 % Platelet 270 10^3/mcL MPV 9.6 fL Neutrophil % 68.0 % Lymphocyte % 23.0 % Monocyte % 7.7 % Eosinophil % 0.7 % Basophil % 0.6 % Neutrophil, Absolute 5.4 10^3/mcL Lymphocyte, Absolute 1.8 10^3/mcL Monocyte, Absolute 0.6 10^3/mcL Eosinophil, Absolute 0.1 10^3/mcL Basophil, Absolute 0.0 10^3/mcL ABO/Rh Interp A NEG Antibody Screen Gel Positive ABSC Passive Anti-D Auto Control Negative 10/06/2023 17:40 EST Lactated Ringers Injection 1,000 mL mL 10/06/2023 17:35 EST Antecubital Left 10/06/2023 20 gauge Peripheral IV Activity: Insert new site Peripheral IV Dressing Condition: Clean, Dry, Intact Peripheral IV Dressing Activity: Applied, Reinforced, Transparent dressing Peripheral IV Line Status/Patency: Flushes easily, Aspirated, Good blood return Peripheral IV Site Condition: No complications Peripheral IV Equipment: IV Pump, PRN Adaptor Peripheral IV Number of Attempts: 2 10/06/2023 17:30 EST Uterine Contraction Monitoring Method External toco Uterine Contraction Frequency 0 Uterine Contraction Duration 0 Uterine Resting Tone, External Soft Uterine Activity Not lizeth Baby A FHR Baseline: 150 bpm FHR Baseline Variability: Moderate variability FHR Accelerations: Present FHR Deceleration: Absent FHR Interpretation Category: Category One FHR Monitoring Method: External US transducer 10/06/2023 17:26 EST [place] History and Physical History and Physical (Modified) 10/06/2023 17:10 EST betamethasone 12 mg mg 10/06/2023 17:00 EST Uterine Contraction Monitoring Method External toco Uterine Contraction Frequency 0 Uterine Contraction Duration 0 Uterine Contraction Intensity, Ext Palp Not palpable Uterine Resting Tone, External Soft Uterine Activity Not lizeth Baby A FHR Baseline: 150 bpm FHR Baseline Variability: Moderate variability FHR Accelerations: Present FHR Deceleration: Absent FHR Interpretation Category: Category One FHR Monitoring Method: External US transducer 10/06/2023 16:30 EST Uterine Contraction Monitoring Method External toco Uterine Contraction Frequency 0 Uterine Contraction Duration 0 Uterine Contraction Intensity, Ext Palp Not palpable Uterine Resting Tone, External Soft Uterine Activity Not lizeth [place] Units 0 Baby A FHR Baseline: 150 bpm FHR Baseline Variability: Moderate variability FHR Accelerations: Present FHR Deceleration: Absent FHR Interpretation Category: Category One FHR Monitoring Method: External US transducer 10/06/2023 16:29 EST OB Screen /Para Para 0 (0) OB Screen Gestational Age < 35 weeks (2) OB Screen Cervical Dilatation Cervical exam not done OB Screen Cervical Effacement Cervical exam not done OB Screen Station Cervical exam not done OB Screen Cervical Position Cervical exam not done OB Screen Presentation Cervical exam not done OB Screen Contraction Pattern None OB Screen Contraction Strength Not applicable OB Screen Membranes Intact (0) OB Screen FHR Variability Moderate (0) OB Screen Duration of Fastest Labor Not applicable OB Screen Travel Time 0-30 minutes (0) OB Screen Previous Uterine Scar None (0) OB Screen Pain None (0) OB Screen Pain Unrelated to Contractions None OB Screen Total Score 2 Presence of decelerations No Vaginal bleeding No Prolapsed Cord or Part No Persistent Maternal BP>140/90 No Persistent Headache No Visual Disturbances No Epigastric Pain No Proteinuria > 2+ No with dilation of 5cm or > No Non-reassuring FHR pattern No FHR Baseline < 110 or > 160 bpm No Decreased Movement/NR NST No No Care in Active Labor No Purulent Vaginal Discharge No Maternal Temp of > 38 degrees Celsius No Membranes Intact Yes Trauma OB Screen No OB Visit Outcome Admitted Chief Complaint nst [place] OB Screen Note OB Screening [place] (Modified) OB Screening Form [place] OB Screening Form [place] (Modified) 10/06/2023 16:23 EST Height 160 cm Admission Weight 117 kg [place] Body Weight 52.38 kg BSA Admission 2.15 Body Mass Index 45.7 kg/m2 Expected Outcome Live Status Yes Risk Factors, Antepartum Current Preg Diabetes, gestational, non-insulin dependent, Oligohydramnios, Relative BMI greater than 30 Movement Present Maternal Transport No Thoughts of Harming Others - History No Thoughts of Suicide - History No Emotional Abuse History Denies Physical Abuse History Denies Sexual Abuse Denies Advanced Directives No - refuses information Infectious Disease Symptoms Patient states no symptoms Infectious Disease Recent Exposure No Alcohol and Drug Use No Employee of Institutional Living No Health Care Employee No History of Exposure to TB No History of Positive Chest X-Ray for TB No History of Positive TB Skin Test No Homeless No Known Immunosuppression No Recent Immigrant No Resident of Institutional Living No Bloody Sputum No Fatigue No Fever No Loss of Appetite No Night Sweats No Persistent Cough > 3 Weeks No Weight Loss No Preferred Spoken Language Jordanian Preferred Written Language Jordanian Chief Complaint nst Mode of Arrival Ambulatory Accompanied by Significant other Information Given by Patient Patient's Current Physicians Dr. Campuzano, Dr. Marte Emergency Contact Number [place] [phone] (FOB) Belongings At Bedside Pants, Shirt, Shoes Personal Home Medications Received No home medications were brought in Belongings Sent Home None Belongings to Security/Secured in Dept None Prev Test Positive/Diagnosis w/COVID-19 Yes Previous COVID-19 Positive Date october 2022 Current Quarantine/Isolated any Illness No Any Contact with Sick Animals/Birds No Traveled Anywhere in Last 30 Days No Influenza Vaccine Need No prior receipt of vaccine Influenza Risk Factors age 6 months and older Influenza Vaccine Contraindications None Forego Influenza Vaccination None No Able To Drink Order Detail Yes Able To Sign Consents Order Detail Yes Code Status Order Detail Full code IV Order Detail No Dialysis Schedule Order Detail N/A Has Diabetes Order Detail Yes Isolation Precautions Order Detail None Nurse Collect Order Detail 0 Oxygen Order Detail No Order Detail Yes Prior Valve Replacement Order Detail No Transport Mode Order Detail Ambulatory Admission Note-Nursing Patient History OB Triage 10/06/2023 16:22 EST Amnisure Negative QC AMNI Valid 10/06/2023 16:03 EST US Biophysical Profile US BIOPHYSICAL PROFILE 10/06/2023 15:51 EST Temperature Temporal Artery 36.4 DegC Heart Rate Monitored 114 bpm HI Respiratory Rate 18 br/min Systolic Blood Pressure Non-Invasive 120 mmHg Diastolic Blood Pressure Non-Invasive 59 mmHg LOW Primary Pain Intensity 0 Patient Position, OB Left tilt 10/06/2023 15:49 EST Uterine Contraction Monitoring Method External toco Uterine Resting Tone, External Soft Baby A FHR Monitoring Method: monitoring explained, External US transducer Heart Tone: 150 . Assessment and Plan [place] [employer] (ASA) physical status classification: Class III. Anesthetic Preoperative Plan Anesthetic technique: Epidural. Regional: Epidural. Risks discussed: nausea, vomiting, headache, sore throat, dental injury, hypotension, allergic reaction, serious complications, PDPH; infection; bleeding; nerve damage. Informed consent: signed by patient. Notes: ASA 3 - preg, BMI 45, asthma, gerd, fatty liver, GDMA1 Pt desires NCB. Consented for epidural in case she changes her mind. Consented for spinal and GA asback-ups. Digitally Signed by JOCELIN LUQUE on 10/07/2023 05:[address] [facility] Evaluation + Plan note Future Appointments Appointment Date:02/14/2022 03:30:00 PM Scheduled Provider: Location:[facility] Appointment Type:US OB < 14 weeks Appointment Date:02/25/2022 08:30:00 AM Scheduled Provider:SOCO CAMPUZANO MD Location: [facility] Appointment Type: OV OB Routine Follow Up Future Scheduled Tests Radiology* US OB < 14 weeks 02/14/22 [facility] Evaluation + Plan note Future Appointments Appointment Date:02/25/2022 08:30:00 AM Scheduled Provider:SOCO CAMPUZANO MD Location: [facility] Appointment Type: OV OB Routine Follow Up [facility] Evaluation + Plan note Future Appointments Appointment Date:03/03/2022 10:30:00 AM Scheduled Provider:ETHEL MARTE MD Location: [place] Appointment Type: OV OB Routine Follow Up Appointment Date:03/11/2022 08:30:00 AM Scheduled Provider: Location:[facility] Appointment Type:US OB < 14 weeks Appointment Date:03/25/2022 09:15:00 AM Scheduled Provider:ILSA MASCORRO Location:[facility] Appointment Type: OV OB Routine Follow Up Future Scheduled Tests Laboratory* Panel (AO) 02/25/22 * Urine Culture 02/25/22 * A1C Hemoglobin 02/25/22 * Hepatitis C Antibody IgG 02/25/22 * HIV 1/2 Ab 02/25/22 * Varicella Zoster Antibody 02/25/22 * Vitamin D Level 02/25/22 * Urine Drug Screen 02/25/22 * [facility] Lab Send out (Blood Specimens) 02/25/22 Radiology* US OB < 14 weeks 03/11/22 [facility] Evaluation + Plan note Future Appointments Appointment Date:03/11/2022 08:30:00 AM Scheduled Provider: Location:[facility] Appointment Type:US OB < 14 weeks Appointment Date:03/17/2022 11:15:00 AM Scheduled Provider:ETHEL MARTE MD Location:[facility] Appointment Type: OV OB Routine Follow Up Appointment Date:03/25/2022 09:15:00 AM Scheduled Provider:ILSA MASCORRO Location:[facility] Appointment Type:[facility] OB Routine Follow Up Diagnostic Tests Pending * Varicella Zoster Antibody 03/03/22 * Cystic Fibrosis Screen (AH) 03/03/22 Future Scheduled Tests Laboratory* Panel (AO) 03/03/22 * Panel (AO) 02/25/22 * HIV 1/2 Ab 02/25/22 * Varicella Zoster Antibody 02/25/22 * [facility] Lab Send out (Blood Specimens) 02/25/22 Radiology* US OB < 14 weeks 03/11/22 [facility] Evaluation + Plan note Future Appointments Appointment Date:03/11/2022 08:30:00 AM Scheduled Provider: Location:[facility] Appointment Type:US OB < 14 weeks Appointment Date:03/17/2022 11:15:00 AM Scheduled Provider:ETHEL MARTE MD Location:[facility] Appointment Type: OV OB Routine Follow Up Appointment Date:03/25/2022 09:15:00 AM Scheduled Provider:ILSA MASCORRO Location:[facility] Appointment Type: OV OB Routine Follow Up Diagnostic Tests Pending * Panel (AO) 03/03/22 * Urine Culture 03/03/22 * Urine Drug Screen 03/03/22 Future Scheduled Tests Laboratory* Panel (AO) 03/03/22 * Panel (AO) 02/25/22 * HIV 1/2 Ab 02/25/22 * Varicella Zoster Antibody 02/25/22 * [facility] Lab Send out (Blood Specimens) 02/25/22 Radiology* US OB < 14 weeks 03/11/22 [facility] Evaluation + Plan note Future Appointments Appointment Date:03/11/2022 08:30:00 AM Scheduled Provider: Location:[facility] Appointment Type:US OB < 14 weeks Appointment Date:03/17/2022 11:15:00 AM Scheduled Provider:ETHEL MARTE MD Location:[facility] Appointment Type: OV OB Routine Follow Up Appointment Date:03/25/2022 09:15:00 AM Scheduled Provider:ILSA MASCORRO Location:[facility] Appointment Type: OV OB Routine Follow Up Future Scheduled Tests Laboratory* Panel (AO) 03/03/22 * Panel (AO) 02/25/22 * HIV 1/2 Ab 02/25/22 * Varicella Zoster Antibody 02/25/22 * [facility] Lab Send out (Blood Specimens) 02/25/22 Radiology* US OB < 14 weeks 03/11/22 [facility] Evaluation + Plan note Future Appointments Appointment Date:03/17/2022 11:15:00 AM Scheduled Provider:ETHEL MARTE MD Location:[facility] Appointment Type: OV OB Routine Follow Up Appointment Date:03/25/2022 09:15:00 AM Scheduled Provider:ILSA MASCORRO Location: [place] Appointment Type: OV OB Routine Follow Up Appointment Date:04/08/2022 10:00:00 AM Scheduled Provider:SOCO CAMPUZANO MD Location: [place] Appointment Type: OV OB Routine Follow Up Future Scheduled Tests Laboratory* Panel (AO) 03/03/22 * Panel (AO) 02/25/22 * HIV 1/2 Ab 02/25/22 * Varicella Zoster Antibody 02/25/22 * [facility] Lab Send out (Blood Specimens) 02/25/22 Radiology* US OB < 14 weeks 03/11/22 [facility] Evaluation + Plan note Future Appointments Appointment Date:03/25/2022 09:15:00 AM Scheduled Provider:ILSA MASCORRO Location:[facility] Appointment Type: OV OB Routine Follow Up Appointment Date:04/08/2022 10:00:00 AM Scheduled Provider:SOCO CAMPUZANO MD Location:[facility] Appointment Type: OV OB Routine Follow Up Future Scheduled Tests Laboratory* Panel (AO) 03/03/22 * Panel (AO) 02/25/22 * HIV 1/2 Ab 02/25/22 * Varicella Zoster Antibody 02/25/22 * [facility] Lab Send out (Blood Specimens) 02/25/22 Radiology* US OB < 14 weeks 03/11/22 [facility] Evaluation + Plan note Future Appointments Appointment Date:07/29/2022 08:00:00 AM Scheduled Provider:SOCO CAMPUZANO MD Location:[facility] Appointment Type: OV OB Initial First Doc Future Scheduled Tests Laboratory* Panel (AO) 03/03/22 * Panel (AO) 02/25/22 * HIV 1/2 Ab 02/25/22 * Varicella Zoster Antibody 02/25/22 * [facility] Lab Send out (Blood Specimens) 02/25/22 Radiology* US OB < 14 weeks 03/11/22 [facility] Evaluation + Plan note Future Appointments Appointment Date:07/21/2022 10:30:00 AM Scheduled Provider:ETHEL MARTE MD Location:[facility] Appointment Type: OV Appointment Date:07/29/2022 08:00:00 AM Scheduled Provider:SOCO CAMPUZANO MD Location:[facility] Appointment Type: OV OB Initial First Doc Future Scheduled Tests Laboratory* hCG, quantitative(AO) 07/18/22 * hCG, quantitative(AO) 07/20/22 * Panel (AO) 03/03/22 * Panel (AO) 02/25/22 * HIV 1/2 Ab 02/25/22 * Varicella Zoster Antibody 02/25/22 * [facility] Lab Send out (Blood Specimens) 02/25/22 Radiology* US OB < 14 weeks 03/11/22 [facility] Evaluation + Plan note Future Appointments Appointment Date:07/21/2022 10:30:00 AM Scheduled Provider:ETHEL MARTE MD Location:[facility] Appointment Type: OV Appointment Date:07/29/2022 08:00:00 AM Scheduled Provider:SOCO CAMPUZANO MD Location:[facility] Appointment Type: OV OB Initial First Doc Diagnostic Tests Pending * hCG, quantitative(AO) 07/20/22 Future Scheduled Tests Laboratory* hCG, quantitative(AO) 07/18/22 * Panel (AO) 03/03/22 * Panel (AO) 02/25/22 * HIV 1/2 Ab 02/25/22 * Varicella Zoster Antibody 02/25/22 * [facility] Lab Send out (Blood Specimens) 02/25/22 Radiology* US OB < 14 weeks 03/11/22 [facility] Evaluation + Plan note Future Appointments Appointment Date:08/02/2022 02:30:00 PM Scheduled Provider:SOCO CAMPUZANO MD Location:[facility] Appointment Type: OV OB Initial First Doc Future Scheduled Tests Laboratory* hCG, quantitative(AO) 07/18/22 * Panel (AO) 03/03/22 * Panel (AO) 02/25/22 * HIV 1/2 Ab 02/25/22 * Varicella Zoster Antibody 02/25/22 * [facility] Lab Send out (Blood Specimens) 02/25/22 Radiology* US OB < 14 weeks 03/11/22 [facility] Evaluation + Plan note Future Appointments Appointment Date:08/10/2022 01:30:00 PM Scheduled Provider:ELLEN CHILDRESS Location:[facility] Appointment Type: OV OB Initial First Doc Future Scheduled Tests Laboratory* hCG, quantitative(AO) 07/18/22 * Panel (AO) 03/03/22 * Panel (AO) 02/25/22 * HIV 1/2 Ab 02/25/22 * Varicella Zoster Antibody 02/25/22 * [facility] Lab Send out (Blood Specimens) 02/25/22 Radiology* US OB < 14 weeks 03/11/22 [facility] Evaluation + Plan note Future Appointments Appointment Date:08/10/2022 01:30:00 PM Scheduled Provider:ELLEN CHILDRESS Location:[facility] Appointment Type: OV Future Scheduled Tests Laboratory* hCG, quantitative(AO) 08/04/22 * hCG, quantitative(AO) 08/07/22 * hCG, quantitative(AO) 08/10/22 * hCG, quantitative(AO) 08/13/22 * hCG, quantitative(AO) 08/16/22 * hCG, quantitative(AO) 08/19/22 * hCG, quantitative(AO) 07/18/22 * Panel (AO) 03/03/22 * Panel (AO) 02/25/22 * Pathology Tissue Request 08/01/22 * HIV 1/2 Ab 02/25/22 * Varicella Zoster Antibody 02/25/22 * [facility] Lab Send out (Blood Specimens) 02/25/22 Radiology* US OB < 14 weeks 03/11/22 [facility] Evaluation + Plan note Future Appointments Appointment Date:08/10/2022 01:30:00 PM Scheduled Provider:ELLEN CHILDRESS Location:[facility] Appointment Type:[facility] Future Scheduled Tests Laboratory* hCG, quantitative(AO) 08/04/22 * hCG, quantitative(AO) 08/07/22 * hCG, quantitative(AO) 08/10/22 * hCG, quantitative(AO) 08/13/22 * hCG, quantitative(AO) 08/16/22 * hCG, quantitative(AO) 08/19/22 * hCG, quantitative(AO) 07/18/22 * Panel (AO) 03/03/22 * Panel (AO) 02/25/22 * HIV 1/2 Ab 02/25/22 * Varicella Zoster Antibody 02/25/22 * [facility] Lab Send out (Blood Specimens) 02/25/22 Radiology* US OB < 14 weeks 03/11/22 [facility] Evaluation + Plan note Future Appointments Appointment Date:08/10/2022 01:30:00 PM Scheduled Provider:ELLEN CHILDRESS Location:[facility] Appointment Type: OV Appointment Date:08/15/2022 01:45:00 PM Scheduled Provider:KAITLIN CARROLL MD Location:[facility] Appointment Type: OV Future Scheduled Tests Laboratory* hCG, quantitative(AO) 08/04/22 * hCG, quantitative(AO) 08/10/22 * hCG, quantitative(AO) 08/13/22 * hCG, quantitative(AO) 08/16/22 * hCG, quantitative(AO) 08/19/22 * hCG, quantitative(AO) 07/18/22 * Panel (AO) 03/03/22 * Panel (AO) 02/25/22 * HIV 1/2 Ab 02/25/22 * Varicella Zoster Antibody 02/25/22 * [facility] Lab Send out (Blood Specimens) 02/25/22 Radiology* US OB < 14 weeks 03/11/22 [facility] Evaluation + Plan note Future Appointments Appointment Date:09/13/2022 10:30:00 AM Scheduled Provider:SOCO CAMPUZANO MD Location:[facility] Appointment Type:[facility] Diagnostic Tests Pending * Circulating Anticoagulants - Panel 08/30/22 * Cardiolipin IgG Antibodies 08/30/22 * Cardiolipin IgM Antibodies 08/30/22 * Panel (AO) 08/30/22 * [facility] Lab Send out (Blood Specimens) 08/30/22 * [facility] Lab Send out (Blood Specimens) 08/30/22 Future Scheduled Tests Laboratory* hCG, quantitative(AO) 08/04/22 * hCG, quantitative(AO) 08/10/22 * hCG, quantitative(AO) 08/13/22 * hCG, quantitative(AO) 08/16/22 * hCG, quantitative(AO) 08/19/22 * hCG, quantitative(AO) 07/18/22 * Panel (AO) 03/03/22 * Panel (AO) 02/25/22 * Panel (AO) 08/30/22 * Urine Culture 08/30/22 * HIV 1/2 Ab 02/25/22 * Varicella Zoster Antibody 02/25/22 * [facility] Lab Send out (Blood Specimens) 02/25/22 Radiology* US OB < 14 weeks 03/11/22 [facility] Evaluation + Plan note Future Appointments Appointment Date:09/13/2022 10:30:00 AM Scheduled Provider:SOCO CAMPUZANO MD Location:[facility] Appointment Type: OV Future Scheduled Tests Laboratory* hCG, quantitative(AO) 08/04/22 * hCG, quantitative(AO) 08/10/22 * hCG, quantitative(AO) 08/13/22 * hCG, quantitative(AO) 08/16/22 * hCG, quantitative(AO) 08/19/22 * hCG, quantitative(AO) 07/18/22 * Panel (AO) 03/03/22 * Panel (AO) 02/25/22 * Panel (AO) 08/30/22 * Urine Culture 08/30/22 * HIV 1/2 Ab 02/25/22 * Varicella Zoster Antibody 02/25/22 * [facility] Lab Send out (Blood Specimens) 02/25/22 Radiology* US OB < 14 weeks 03/11/22 [facility] Evaluation + Plan note Future Appointments Appointment Date:04/18/2023 09:00:00 AM Scheduled Provider: Location:[facility] Appointment Type:US OB < 14 weeks Appointment Date:05/01/2023 09:45:00 AM Scheduled Provider:SOCO CAMPUZANO MD Location:[facility] Appointment Type: OV Diagnostic Tests Pending * Rapid Plasma Reagin Test 04/03/23 * Rubella Antibody 04/03/23 Future Scheduled Tests Laboratory* hCG, quantitative(AO) 08/04/22 * hCG, quantitative(AO) 08/10/22 * hCG, quantitative(AO) 08/13/22 * hCG, quantitative(AO) 08/16/22 * hCG, quantitative(AO) 07/18/22 * hCG, quantitative(AO) 03/28/23 * hCG, quantitative(AO) 03/16/23 * hCG, quantitative(AO) 03/19/23 * hCG, quantitative(AO) 03/25/23 * hCG, quantitative(AO) 03/28/23 * Panel (AO) 08/30/22 * Urine Culture 08/30/22 * Urine Culture 03/16/23 * Urine Drug Screen 04/03/23 Radiology* US OB < 14 weeks 03/29/23 * US OB < 14 weeks 04/18/23 [facility] Evaluation + Plan note Future Appointments Appointment Date:05/01/2023 09:45:00 AM Scheduled Provider:SOCO CAMPUZANO MD Location:[facility] Appointment Type: OV Future Scheduled Tests Laboratory* hCG, quantitative(AO) 08/04/22 * hCG, quantitative(AO) 08/10/22 * hCG, quantitative(AO) 08/13/22 * hCG, quantitative(AO) 08/16/22 * hCG, quantitative(AO) 07/18/22 * hCG, quantitative(AO) 03/28/23 * hCG, quantitative(AO) 03/16/23 * hCG, quantitative(AO) 03/19/23 * hCG, quantitative(AO) 03/25/23 * hCG, quantitative(AO) 03/28/23 * Panel (AO) 08/30/22 * Urine Culture 08/30/22 * Urine Culture 03/16/23 * Urine Drug Screen 04/03/23 Radiology* US OB < 14 weeks 03/29/23 [facility] Evaluation + Plan note Future Appointments Appointment Date:05/08/2023 08:30:00 AM Scheduled Provider:SOCO CAMPUZANO MD Location:[facility] Appointment Type:[facility] OB Routine Follow Up Future Scheduled Tests Laboratory* hCG, quantitative(AO) 08/04/22 * hCG, quantitative(AO) 08/10/22 * hCG, quantitative(AO) 08/13/22 * hCG, quantitative(AO) 08/16/22 * hCG, quantitative(AO) 07/18/22 * hCG, quantitative(AO) 03/28/23 * hCG, quantitative(AO) 03/16/23 * hCG, quantitative(AO) 03/19/23 * hCG, quantitative(AO) 03/25/23 * hCG, quantitative(AO) 03/28/23 * Panel (AO) 08/30/22 * Urine Culture 08/30/22 * Urine Culture 03/16/23 * Urine Drug Screen 04/03/23 * [facility] Lab Send out (Blood Specimens) 05/01/23 * [facility] Lab Send out (Blood Specimens) 05/01/23 Radiology* US OB < 14 weeks 03/29/23 [facility] Evaluation + Plan note Future Appointments Appointment Date:06/05/2023 10:30:00 AM Scheduled Provider:SOCO CAMPUZANO MD Location:[facility] Appointment Type:[facility] OB Routine Follow Up Future Scheduled Tests Laboratory* hCG, quantitative(AO) 08/04/22 * hCG, quantitative(AO) 08/10/22 * hCG, quantitative(AO) 08/13/22 * hCG, quantitative(AO) 08/16/22 * hCG, quantitative(AO) 07/18/22 * hCG, quantitative(AO) 03/28/23 * hCG, quantitative(AO) 03/16/23 * hCG, quantitative(AO) 03/19/23 * hCG, quantitative(AO) 03/25/23 * hCG, quantitative(AO) 03/28/23 * Panel (AO) 08/30/22 * Urine Culture 08/30/22 * Urine Culture 03/16/23 * Urine Drug Screen 04/03/23 * [facility] Lab Send out (Blood Specimens) 05/01/23 * [facility] Lab Send out (Blood Specimens) 05/01/23 Radiology* US OB < 14 weeks 03/29/23 [facility] Evaluation + Plan note Future Appointments Appointment Date:08/11/2023 10:00:00 AM Scheduled Provider:SOCO CAMPUZANO MD Location:[facility] Appointment Type: OV OB Routine Follow Up Future Scheduled Tests Laboratory* hCG, quantitative(AO) 08/10/22 * hCG, quantitative(AO) 08/13/22 * hCG, quantitative(AO) 08/16/22 * hCG, quantitative(AO) 03/28/23 * hCG, quantitative(AO) 03/16/23 * hCG, quantitative(AO) 03/19/23 * hCG, quantitative(AO) 03/25/23 * hCG, quantitative(AO) 03/28/23 * Panel (AO) 08/30/22 * Urine Culture 08/30/22 * Urine Culture 03/16/23 * Urine Drug Screen 04/03/23 * [facility] Lab Send out (Blood Specimens) 05/01/23 * [facility] Lab Send out (Blood Specimens) 05/01/23 Radiology* US OB < 14 weeks 03/29/23 [facility] Evaluation + Plan note Future Appointments Appointment Date:09/08/2023 03:00:00 PM Scheduled Provider: Location:[facility] Appointment Type:US OB W/Biophysical Profile Appointment Date:09/12/2023 02:15:00 PM Scheduled Provider:ANTONIO BRIZUELA Location: [place] Appointment Type:WH OV OB Routine Follow Up Appointment Date:09/12/2023 03:00:00 PM Scheduled Provider: Location:[facility] Appointment Type:US OB W/Biophysical Profile Appointment Date:09/15/2023 03:00:00 PM Scheduled Provider: Location:[facility] Appointment Type:US OB W/Biophysical Profile Appointment Date:09/19/2023 02:30:00 PM Scheduled Provider: Location:[facility] Appointment Type:US OB W/Biophysical Profile Appointment Date:09/22/2023 02:30:00 PM Scheduled Provider: Location:[facility] Appointment Type:US OB W/Biophysical Profile Appointment Date:09/26/2023 03:00:00 PM Scheduled Provider: Location:[facility] Appointment Type:US OB W/Biophysical Profile Appointment Date:09/29/2023 03:00:00 PM Scheduled Provider: Location:[facility] Appointment Type:US OB W/Biophysical Profile Appointment Date:10/03/2023 03:00:00 PM Scheduled Provider: Location:[facility] Appointment Type:US OB W/Biophysical Profile Appointment Date:10/06/2023 03:00:00 PM Scheduled Provider: Location:[facility] Appointment Type:US OB W/Biophysical Profile Appointment Date:10/10/2023 02:30:00 PM Scheduled Provider: Location:[facility] Appointment Type:US OB W/Biophysical Profile Appointment Date:10/13/2023 01:30:00 PM Scheduled Provider: Location:[facility] Appointment Type:US OB W/Biophysical Profile Appointment Date:10/17/2023 02:30:00 PM Scheduled Provider: Location:[facility] Appointment Type:US OB W/Biophysical Profile Future Scheduled Tests Laboratory* hCG, quantitative(AO) 03/28/23 * hCG, quantitative(AO) 03/16/23 * hCG, quantitative(AO) 03/19/23 * hCG, quantitative(AO) 03/25/23 * hCG, quantitative(AO) 03/28/23 * Antibody Screen Gel 09/05/23 * ABO/Rh Gel 09/05/23 * .Glucose Fasting 09/01/23 * .Glucose 1 Hour 09/01/23 * .Glucose 2 Hour 09/01/23 * .Glucose 3 Hour 09/01/23 * Urine Culture 03/16/23 * Urine Drug Screen 04/03/23 * [facility] Lab Send out (Blood Specimens) 05/01/23 * [facility] Lab Send out (Blood Specimens) 05/01/23 Radiology* US OB W/Biophysical Profile 09/08/23 * US OB W/Biophysical Profile 09/12/23 * US OB W/Biophysical Profile 09/15/23 * US OB W/Biophysical Profile 09/19/23 * US OB W/Biophysical Profile 09/22/23 * US OB W/Biophysical Profile 09/26/23 * US OB W/Biophysical Profile 09/29/23 * US OB W/Biophysical Profile 10/03/23 * US OB W/Biophysical Profile 10/06/23 * US OB W/Biophysical Profile 10/10/23 * US OB W/Biophysical Profile 10/13/23 * US OB W/Biophysical Profile 10/17/23 [facility] Evaluation + Plan note Future Appointments Appointment Date:09/12/2023 02:15:00 PM Scheduled Provider:ANTONIO BRIZUELA Location: [place] Appointment Type: OV OB Routine Follow Up Appointment Date:09/12/2023 03:00:00 PM Scheduled Provider: Location:[facility] Appointment Type:US OB W/Biophysical Profile Appointment Date:09/15/2023 03:00:00 PM Scheduled Provider: Location:[facility] Appointment Type:US OB W/Biophysical Profile Appointment Date:09/19/2023 02:30:00 PM Scheduled Provider: Location:[facility] Appointment Type:US OB W/Biophysical Profile Appointment Date:09/22/2023 02:30:00 PM Scheduled Provider: Location:[facility] Appointment Type:US OB W/Biophysical Profile Appointment Date:09/26/2023 03:00:00 PM Scheduled Provider: Location:[facility] Appointment Type:US OB W/Biophysical Profile Appointment Date:09/29/2023 03:00:00 PM Scheduled Provider: Location:[facility] Appointment Type:US OB W/Biophysical Profile Appointment Date:10/03/2023 03:00:00 PM Scheduled Provider: Location:[facility] Appointment Type:US OB W/Biophysical Profile Appointment Date:10/06/2023 03:00:00 PM Scheduled Provider: Location:[facility] Appointment Type:US OB W/Biophysical Profile Appointment Date:10/10/2023 02:30:00 PM Scheduled Provider: Location:[facility] Appointment Type:US OB W/Biophysical Profile Appointment Date:10/13/2023 01:30:00 PM Scheduled Provider: Location:[facility] Appointment Type:US OB W/Biophysical Profile Appointment Date:10/17/2023 02:30:00 PM Scheduled Provider: Location:[facility] Appointment Type:US OB W/Biophysical Profile Future Scheduled Tests Laboratory* hCG, quantitative(AO) 03/28/23 * hCG, quantitative(AO) 03/16/23 * hCG, quantitative(AO) 03/19/23 * hCG, quantitative(AO) 03/25/23 * hCG, quantitative(AO) 03/28/23 * Antibody Screen Gel 09/05/23 * ABO/Rh Gel 09/05/23 * .Glucose Fasting 09/01/23 * .Glucose 1 Hour 09/01/23 * .Glucose 2 Hour 09/01/23 * .Glucose 3 Hour 09/01/23 * Urine Culture 03/16/23 * Urine Drug Screen 04/03/23 * [facility] Lab Send out (Blood Specimens) 05/01/23 * [facility] Lab Send out (Blood Specimens) 05/01/23 Radiology* US OB W/Biophysical Profile 09/12/23 * US OB W/Biophysical Profile 09/15/23 * US OB W/Biophysical Profile 09/19/23 * US OB W/Biophysical Profile 09/22/23 * US OB W/Biophysical Profile 09/26/23 * US OB W/Biophysical Profile 09/29/23 * US OB W/Biophysical Profile 10/03/23 * US OB W/Biophysical Profile 10/06/23 * US OB W/Biophysical Profile 10/10/23 * US OB W/Biophysical Profile 10/13/23 * US OB W/Biophysical Profile 10/17/23 [facility] Evaluation + Plan note Future Appointments Appointment Date:09/15/2023 03:00:00 PM Scheduled Provider: Location:[facility] Appointment Type:US OB W/Biophysical Profile Appointment Date:09/19/2023 02:30:00 PM Scheduled Provider: Location:[facility] Appointment Type:US OB W/Biophysical Profile Appointment Date:09/22/2023 02:30:00 PM Scheduled Provider: Location:[facility] Appointment Type:US OB W/Biophysical Profile Appointment Date:09/25/2023 03:15:00 PM Scheduled Provider:KAITLIN CARROLL MD Location: [place] Appointment Type:[facility] OV OB Routine Follow Up Appointment Date:09/26/2023 03:00:00 PM Scheduled Provider: Location:[facility] Appointment Type:US OB W/Biophysical Profile Appointment Date:09/29/2023 03:00:00 PM Scheduled Provider: Location:[facility] Appointment Type:US OB W/Biophysical Profile Appointment Date:10/03/2023 03:00:00 PM Scheduled Provider: Location:[facility] Appointment Type:US OB W/Biophysical Profile Appointment Date:10/06/2023 03:00:00 PM Scheduled Provider: Location:[facility] Appointment Type:US OB W/Biophysical Profile Appointment Date:10/10/2023 02:30:00 PM Scheduled Provider: Location:[facility] Appointment Type:US OB W/Biophysical Profile Appointment Date:10/13/2023 01:30:00 PM Scheduled Provider: Location:[facility] Appointment Type:US OB W/Biophysical Profile Appointment Date:10/17/2023 02:30:00 PM Scheduled Provider: Location:[facility] Appointment Type:US OB W/Biophysical Profile Future Scheduled Tests Laboratory* hCG, quantitative(AO) 03/28/23 * hCG, quantitative(AO) 03/16/23 * hCG, quantitative(AO) 03/19/23 * hCG, quantitative(AO) 03/25/23 * hCG, quantitative(AO) 03/28/23 * .Glucose Fasting 09/01/23 * .Glucose 1 Hour 09/01/23 * .Glucose 2 Hour 09/01/23 * .Glucose 3 Hour 09/01/23 * Urine Culture 03/16/23 * Urine Drug Screen 04/03/23 * [facility] Lab Send out (Blood Specimens) 05/01/23 * [facility] Lab Send out (Blood Specimens) 05/01/23 Radiology* US OB W/Biophysical Profile 09/15/23 * US OB W/Biophysical Profile 09/19/23 * US OB W/Biophysical Profile 09/22/23 * US OB W/Biophysical Profile 09/26/23 * US OB W/Biophysical Profile 09/29/23 * US OB W/Biophysical Profile 10/03/23 * US OB W/Biophysical Profile 10/06/23 * US OB W/Biophysical Profile 10/10/23 * US OB W/Biophysical Profile 10/13/23 * US OB W/Biophysical Profile 10/17/23 [facility] Evaluation + Plan note Future Appointments Appointment Date:09/19/2023 02:30:00 PM Scheduled Provider: Location:[facility] Appointment Type:US OB W/Biophysical Profile Appointment Date:09/22/2023 02:30:00 PM Scheduled Provider: Location:[facility] Appointment Type:US OB W/Biophysical Profile Appointment Date:09/25/2023 03:15:00 PM Scheduled Provider:KAITLIN CARROLL MD Location: [place] Appointment Type: OV OB Routine Follow Up Appointment Date:09/26/2023 03:00:00 PM Scheduled Provider: Location:[facility] Appointment Type:US OB W/Biophysical Profile Appointment Date:09/29/2023 03:00:00 PM Scheduled Provider: Location:[facility] Appointment Type:US OB W/Biophysical Profile Appointment Date:10/03/2023 03:00:00 PM Scheduled Provider: Location:[facility] Appointment Type:US OB W/Biophysical Profile Appointment Date:10/06/2023 03:00:00 PM Scheduled Provider: Location:[facility] Appointment Type:US OB W/Biophysical Profile Appointment Date:10/10/2023 02:30:00 PM Scheduled Provider: Location:[facility] Appointment Type:US OB W/Biophysical Profile Appointment Date:10/13/2023 01:30:00 PM Scheduled Provider: Location:[facility] Appointment Type:US OB W/Biophysical Profile Appointment Date:10/17/2023 02:30:00 PM Scheduled Provider: Location:[facility] Appointment Type:US OB W/Biophysical Profile Future Scheduled Tests Laboratory* hCG, quantitative(AO) 03/28/23 * hCG, quantitative(AO) 03/16/23 * hCG, quantitative(AO) 03/19/23 * hCG, quantitative(AO) 03/25/23 * hCG, quantitative(AO) 03/28/23 * .Glucose Fasting 09/01/23 * .Glucose 1 Hour 09/01/23 * .Glucose 2 Hour 09/01/23 * .Glucose 3 Hour 09/01/23 * Urine Culture 03/16/23 * Urine Drug Screen 04/03/23 * [facility] Lab Send out (Blood Specimens) 05/01/23 * [facility] Lab Send out (Blood Specimens) 05/01/23 Radiology* US OB W/Biophysical Profile 09/15/23 * US OB W/Biophysical Profile 09/19/23 * US OB W/Biophysical Profile 09/22/23 * US OB W/Biophysical Profile 09/26/23 * US OB W/Biophysical Profile 09/29/23 * US OB W/Biophysical Profile 10/03/23 * US OB W/Biophysical Profile 10/06/23 * US OB W/Biophysical Profile 10/10/23 * US OB W/Biophysical Profile 10/13/23 * US OB W/Biophysical Profile 10/17/23 [facility] Evaluation + Plan note Future Appointments Appointment Date:09/22/2023 02:30:00 PM Scheduled Provider: Location:[facility] Appointment Type:US OB W/Biophysical Profile Appointment Date:09/25/2023 03:15:00 PM Scheduled Provider:KAITLIN CARROLL MD Location: [place] Appointment Type: OV OB Routine Follow Up Appointment Date:09/26/2023 03:00:00 PM Scheduled Provider: Location:[facility] Appointment Type:US OB W/Biophysical Profile Appointment Date:09/29/2023 03:00:00 PM Scheduled Provider: Location:[facility] Appointment Type:US OB W/Biophysical Profile Appointment Date:10/03/2023 03:00:00 PM Scheduled Provider: Location:[facility] Appointment Type:US OB W/Biophysical Profile Appointment Date:10/06/2023 03:00:00 PM Scheduled Provider: Location:[facility] Appointment Type:US OB W/Biophysical Profile Appointment Date:10/10/2023 02:30:00 PM Scheduled Provider: Location:[facility] Appointment Type:US OB W/Biophysical Profile Appointment Date:10/13/2023 01:30:00 PM Scheduled Provider: Location:[facility] Appointment Type:US OB W/Biophysical Profile Appointment Date:10/17/2023 02:30:00 PM Scheduled Provider: Location:[facility] Appointment Type:US OB W/Biophysical Profile Future Scheduled Tests Laboratory* hCG, quantitative(AO) 03/28/23 * hCG, quantitative(AO) 03/16/23 * hCG, quantitative(AO) 03/19/23 * hCG, quantitative(AO) 03/25/23 * hCG, quantitative(AO) 03/28/23 * .Glucose Fasting 09/01/23 * .Glucose 1 Hour 09/01/23 * .Glucose 2 Hour 09/01/23 * .Glucose 3 Hour 09/01/23 * Urine Culture 03/16/23 * Urine Drug Screen 04/03/23 * [facility] Lab Send out (Blood Specimens) 05/01/23 * [facility] Lab Send out (Blood Specimens) 05/01/23 Radiology* US OB W/Biophysical Profile 09/15/23 * US OB W/Biophysical Profile 09/22/23 * US OB W/Biophysical Profile 09/26/23 * US OB W/Biophysical Profile 09/29/23 * US OB W/Biophysical Profile 10/03/23 * US OB W/Biophysical Profile 10/06/23 * US OB W/Biophysical Profile 10/10/23 * US OB W/Biophysical Profile 10/13/23 * US OB W/Biophysical Profile 10/17/23 [facility] Evaluation + Plan note Future Appointments Appointment Date:09/25/2023 10:45:00 AM Scheduled Provider:ETHEL MARTE MD Location: [place] Appointment Type: OV OB Routine Follow Up Appointment Date:09/26/2023 03:00:00 PM Scheduled Provider: Location:[facility] Appointment Type:US OB W/Biophysical Profile Appointment Date:09/29/2023 03:00:00 PM Scheduled Provider: Location:[facility] Appointment Type:US OB W/Biophysical Profile Appointment Date:10/03/2023 03:00:00 PM Scheduled Provider: Location:[facility] Appointment Type:US OB W/Biophysical Profile Appointment Date:10/06/2023 03:00:00 PM Scheduled Provider: Location:[facility] Appointment Type:US OB W/Biophysical Profile Appointment Date:10/10/2023 02:30:00 PM Scheduled Provider: Location:[facility] Appointment Type:US OB W/Biophysical Profile Appointment Date:10/13/2023 01:30:00 PM Scheduled Provider: Location:[facility] Appointment Type:US OB W/Biophysical Profile Appointment Date:10/17/2023 02:30:00 PM Scheduled Provider: Location:[facility] Appointment Type:US OB W/Biophysical Profile Future Scheduled Tests Laboratory* hCG, quantitative(AO) 03/28/23 * hCG, quantitative(AO) 03/16/23 * hCG, quantitative(AO) 03/19/23 * hCG, quantitative(AO) 03/25/23 * hCG, quantitative(AO) 03/28/23 * .Glucose Fasting 09/01/23 * .Glucose 1 Hour 09/01/23 * .Glucose 2 Hour 09/01/23 * .Glucose 3 Hour 09/01/23 * Urine Culture 03/16/23 * Urine Drug Screen 04/03/23 * [facility] Lab Send out (Blood Specimens) 05/01/23 * [facility] Lab Send out (Blood Specimens) 05/01/23 Radiology* US OB W/Biophysical Profile 09/15/23 * US OB W/Biophysical Profile 09/26/23 * US OB W/Biophysical Profile 09/29/23 * US OB W/Biophysical Profile 10/03/23 * US OB W/Biophysical Profile 10/06/23 * US OB W/Biophysical Profile 10/10/23 * US OB W/Biophysical Profile 10/13/23 * US OB W/Biophysical Profile 10/17/23 [facility] Evaluation + Plan note Future Appointments Appointment Date:10/03/2023 03:00:00 PM Scheduled Provider: Location:[facility] Appointment Type:US OB W/Biophysical Profile Appointment Date:10/06/2023 03:00:00 PM Scheduled Provider: Location:[facility] Appointment Type:US OB W/Biophysical Profile Appointment Date:10/09/2023 11:45:00 AM Scheduled Provider:ETHEL MARTE MD Location: [place] Appointment Type:[facility] OV Appointment Date:10/10/2023 02:30:00 PM Scheduled Provider: Location:[facility] Appointment Type:US OB W/Biophysical Profile Appointment Date:10/13/2023 01:30:00 PM Scheduled Provider: Location:[facility] Appointment Type:US OB W/Biophysical Profile Appointment Date:10/17/2023 02:30:00 PM Scheduled Provider: Location:[facility] Appointment Type:US OB W/Biophysical Profile Future Scheduled Tests Laboratory* hCG, quantitative(AO) 03/28/23 * hCG, quantitative(AO) 03/16/23 * hCG, quantitative(AO) 03/19/23 * hCG, quantitative(AO) 03/25/23 * hCG, quantitative(AO) 03/28/23 * .Glucose Fasting 09/01/23 * .Glucose 1 Hour 09/01/23 * .Glucose 2 Hour 09/01/23 * .Glucose 3 Hour 09/01/23 * Urine Culture 03/16/23 * Urine Drug Screen 04/03/23 * [facility] Lab Send out (Blood Specimens) 05/01/23 * [facility] Lab Send out (Blood Specimens) 05/01/23 Radiology* US OB W/Biophysical Profile 09/15/23 * US OB W/Biophysical Profile 09/26/23 * US OB W/Biophysical Profile 10/03/23 * US OB W/Biophysical Profile 10/06/23 * US OB W/Biophysical Profile 10/10/23 * US OB W/Biophysical Profile 10/13/23 * US OB W/Biophysical Profile 10/17/23 [facility] Evaluation + Plan note Future Appointments Appointment Date:10/06/2023 03:00:00 PM Scheduled Provider: Location:[facility] Appointment Type:US OB W/Biophysical Profile Appointment Date:10/09/2023 11:45:00 AM Scheduled Provider:ETHEL MARTE MD Location: [place] Appointment Type: OV Appointment Date:10/10/2023 02:30:00 PM Scheduled Provider: Location:[facility] Appointment Type:US OB W/Biophysical Profile Appointment Date:10/13/2023 01:30:00 PM Scheduled Provider: Location:[facility] Appointment Type:US OB W/Biophysical Profile Appointment Date:10/17/2023 02:30:00 PM Scheduled Provider: Location:[facility] Appointment Type:US OB W/Biophysical Profile Future Scheduled Tests Laboratory* hCG, quantitative(AO) 03/28/23 * hCG, quantitative(AO) 03/16/23 * hCG, quantitative(AO) 03/19/23 * hCG, quantitative(AO) 03/25/23 * hCG, quantitative(AO) 03/28/23 * .Glucose Fasting 09/01/23 * .Glucose 1 Hour 09/01/23 * .Glucose 2 Hour 09/01/23 * .Glucose 3 Hour 09/01/23 * Urine Culture 03/16/23 * Urine Drug Screen 04/03/23 * [facility] Lab Send out (Blood Specimens) 05/01/23 * [facility] Lab Send out (Blood Specimens) 05/01/23 Radiology* US OB W/Biophysical Profile 09/15/23 * US OB W/Biophysical Profile 09/26/23 * US OB W/Biophysical Profile 10/03/23 * US OB W/Biophysical Profile 10/06/23 * US OB W/Biophysical Profile 10/10/23 * US OB W/Biophysical Profile 10/13/23 * US OB W/Biophysical Profile 10/17/23 [facility] Evaluation + Plan note Future Appointments Appointment Date:10/09/2023 11:45:00 AM Scheduled Provider:ETHEL MARTE MD Location:[facility] Appointment Type: OV Appointment Date:10/10/2023 02:30:00 PM Scheduled Provider: Location:[facility] Appointment Type:US OB W/Biophysical Profile Appointment Date:10/13/2023 01:30:00 PM Scheduled Provider: Location:[facility] Appointment Type:US OB W/Biophysical Profile Appointment Date:10/17/2023 02:30:00 PM Scheduled Provider: Location:[facility] Appointment Type:US OB W/Biophysical Profile Future Scheduled Tests Laboratory* hCG, quantitative(AO) 03/28/23 * hCG, quantitative(AO) 03/16/23 * hCG, quantitative(AO) 03/19/23 * hCG, quantitative(AO) 03/25/23 * hCG, quantitative(AO) 03/28/23 * .Glucose Fasting 09/01/23 * .Glucose 1 Hour 09/01/23 * .Glucose 2 Hour 09/01/23 * .Glucose 3 Hour 09/01/23 * Urine Culture 03/16/23 * Urine Drug Screen 04/03/23 * [facility] Lab Send out (Blood Specimens) 05/01/23 * [facility] Lab Send out (Blood Specimens) 05/01/23 Radiology* US OB W/Biophysical Profile 09/15/23 * US OB W/Biophysical Profile 09/26/23 * US OB W/Biophysical Profile 10/03/23 * US OB W/Biophysical Profile 10/10/23 * US OB W/Biophysical Profile 10/13/23 * US OB W/Biophysical Profile 10/17/23 [facility] Evaluation + Plan note Future Appointments Appointment Date:10/13/2023 01:30:00 PM Scheduled Provider: Location:[facility] Appointment Type:US OB W/Biophysical Profile Appointment Date:10/17/2023 02:30:00 PM Scheduled Provider: Location:[facility] Appointment Type:US OB W/Biophysical Profile Future Scheduled Tests Laboratory* hCG, quantitative(AO) 03/28/23 * hCG, quantitative(AO) 03/16/23 * hCG, quantitative(AO) 03/19/23 * hCG, quantitative(AO) 03/25/23 * hCG, quantitative(AO) 03/28/23 * .Glucose Fasting 09/01/23 * .Glucose 1 Hour 09/01/23 * .Glucose 2 Hour 09/01/23 * .Glucose 3 Hour 09/01/23 * Urine Culture 03/16/23 * Urine Drug Screen 04/03/23 * [facility] Spec[facility] 05/01/23 * [facility] Lab Send out (Blood Specimens) 05/01/23 Radiology* US OB W/Biophysical Profile 09/15/23 * US OB W/Biophysical Profile 09/26/23 * US OB W/Biophysical Profile 10/03/23 * US OB W/Biophysical Profile 10/10/23 * US OB W/Biophysical Profile 10/13/23 * US OB W/Biophysical Profile 10/17/23 [facility] Evaluation + Plan note Future Appointments Appointment Date:10/17/2023 02:30:00 PM Scheduled Provider: Location:[facility] Appointment Type:US OB W/Biophysical Profile Future Scheduled Tests Laboratory* hCG, quantitative(AO) 03/28/23 * hCG, quantitative(AO) 03/16/23 * hCG, quantitative(AO) 03/19/23 * hCG, quantitative(AO) 03/25/23 * hCG, quantitative(AO) 03/28/23 * .Glucose Fasting 09/01/23 * .Glucose 1 Hour 09/01/23 * .Glucose 2 Hour 09/01/23 * .Glucose 3 Hour 09/01/23 * Urine Culture 03/16/23 * Urine Drug Screen 04/03/23 * [facility] Lab Send out (Blood Specimens) 05/01/23 * [facility] Lab Send out (Blood Specimens) 05/01/23 Radiology* US OB W/Biophysical Profile 09/15/23 * US OB W/Biophysical Profile 09/26/23 * US OB W/Biophysical Profile 10/03/23 * US OB W/Biophysical Profile 10/10/23 * US OB W/Biophysical Profile 10/17/23 [facility] Evaluation + Plan note Future Appointments Appointment Date:10/19/2023 10:45:00 AM Scheduled Provider:ETHEL MARTE MD Location:[facility] Appointment Type:[facility] Routine Follow Up Future Scheduled Tests Laboratory* hCG, quantitative(AO) 03/28/23 * hCG, quantitative(AO) 03/16/23 * hCG, quantitative(AO) 03/19/23 * hCG, quantitative(AO) 03/25/23 * hCG, quantitative(AO) 03/28/23 * .Glucose Fasting 09/01/23 * .Glucose 1 Hour 09/01/23 * .Glucose 2 Hour 09/01/23 * .Glucose 3 Hour 09/01/23 * Urine Culture 03/16/23 * Urine Drug Screen 04/03/23 * [facility] Lab Send out (Blood Specimens) 05/01/23 * [facility] Lab Send out (Blood Specimens) 05/01/23 Radiology* US OB W/Biophysical Profile 09/15/23 * US OB W/Biophysical Profile 09/26/23 * US OB W/Biophysical Profile 10/03/23 * US OB W/Biophysical Profile 10/10/23 [facility] Evaluation + Plan note Future Appointments Appointment Date:10/26/2023 08:30:00 AM Scheduled Provider:ETHEL MARTE MD Location:[facility] [place] Appointment Type: OV OB Routine Follow Up Appointment Date:10/27/2023 02:00:00 PM Scheduled Provider: Location:[facility] Appointment Type:US OB W/Biophysical Profile Appointment Date:10/31/2023 10:00:00 AM Scheduled Provider: Location:[facility] Appointment Type:US OB W/Biophysical Profile Appointment Date:11/03/2023 10:00:00 AM Scheduled Provider: Location:[facility] Appointment Type:US OB W/Biophysical Profile Appointment Date:11/10/2023 10:00:00 AM Scheduled Provider: Location:[facility] Appointment Type:US OB W/Biophysical Profile Appointment Date:11/14/2023 10:00:00 AM Scheduled Provider: Location:[facility] Appointment Type:US OB W/Biophysical Profile Appointment Date:11/17/2023 10:00:00 AM Scheduled Provider: Location:[facility] Appointment Type:US OB W/Biophysical Profile Appointment Date:11/21/2023 10:00:00 AM Scheduled Provider: Location:[facility] Appointment Type:US OB W/Biophysical Profile Future Scheduled Tests Laboratory* hCG, quantitative(AO) 03/28/23 * hCG, quantitative(AO) 03/16/23 * hCG, quantitative(AO) 03/19/23 * hCG, quantitative(AO) 03/25/23 * hCG, quantitative(AO) 03/28/23 * .Glucose Fasting 09/01/23 * .Glucose 1 Hour 09/01/23 * .Glucose 2 Hour 09/01/23 * .Glucose 3 Hour 09/01/23 * Urine Culture 03/16/23 * Urine Drug Screen 04/03/23 * [facility] Lab Send out (Blood Specimens) 05/01/23 * [facility] Lab Send out (Blood Specimens) 05/01/23 Radiology* US OB W/Biophysical Profile 11/03/23 * US OB W/Biophysical Profile 10/27/23 * US OB W/Biophysical Profile 10/31/23 * US OB W/Biophysical Profile 11/10/23 * US OB W/Biophysical Profile 11/14/23 * US OB W/Biophysical Profile 11/17/23 * US OB W/Biophysical Profile 11/21/23 * US OB W/Biophysical Profile 09/15/23 * US OB W/Biophysical Profile 09/26/23 * US OB W/Biophysical Profile 10/03/23 * US OB W/Biophysical Profile 10/10/23 [facility] Evaluation + Plan note Future Appointments Appointment Date:10/27/2023 02:00:00 PM Scheduled Provider: Location:[facility] Appointment Type:US OB W/Biophysical Profile Appointment Date:10/31/2023 10:00:00 AM Scheduled Provider: Location:[facility] Appointment Type:US OB W/Biophysical Profile Appointment Date:11/02/2023 11:45:00 AM Scheduled Provider:ETHEL MARTE MD Location: [place] Appointment Type:[facility] OV Appointment Date:11/03/2023 10:00:00 AM Scheduled Provider: Location:[facility] Appointment Type:US OB W/Biophysical Profile Appointment Date:11/10/2023 10:00:00 AM Scheduled Provider: Location:[facility] Appointment Type:US OB W/Biophysical Profile Appointment Date:11/14/2023 10:00:00 AM Scheduled Provider: Location:[facility] Appointment Type:US OB W/Biophysical Profile Appointment Date:11/17/2023 10:00:00 AM Scheduled Provider: Location:[facility] Appointment Type:US OB W/Biophysical Profile Appointment Date:11/21/2023 10:00:00 AM Scheduled Provider: Location:[facility] Appointment Type:US OB W/Biophysical Profile Future Scheduled Tests Laboratory* hCG, quantitative(AO) 03/28/23 * hCG, quantitative(AO) 03/16/23 * hCG, quantitative(AO) 03/19/23 * hCG, quantitative(AO) 03/25/23 * hCG, quantitative(AO) 03/28/23 * .Glucose Fasting 09/01/23 * .Glucose 1 Hour 09/01/23 * .Glucose 2 Hour 09/01/23 * .Glucose 3 Hour 09/01/23 * Urine Culture 03/16/23 * Urine Drug Screen 04/03/23 * [facility] ([facility] Specimens) 05/01/23 * [facility] Lab Send out (Blood Specimens) 05/01/23 Radiology* US OB W/Biophysical Profile 11/03/23 * US OB W/Biophysical Profile 10/27/23 * US OB W/Biophysical Profile 10/31/23 * US OB W/Biophysical Profile 11/10/23 * US OB W/Biophysical Profile 11/14/23 * US OB W/Biophysical Profile 11/17/23 * US OB W/Biophysical Profile 11/21/23 * US OB W/Biophysical Profile 09/15/23 * US OB W/Biophysical Profile 09/26/23 * US OB W/Biophysical Profile 10/03/23 * US OB W/Biophysical Profile 10/10/23 [facility] Evaluation + Plan note Future Appointments Appointment Date:11/02/2023 11:45:00 AM Scheduled Provider:ETHEL MARTE MD Location: [place] Appointment Type:[facility] OV Appointment Date:11/03/2023 10:00:00 AM Scheduled Provider: Location:[facility] Appointment Type:US OB W/Biophysical Profile Appointment Date:11/10/2023 10:00:00 AM Scheduled Provider: Location:[facility] Appointment Type:US OB W/Biophysical Profile Appointment Date:11/14/2023 10:00:00 AM Scheduled Provider: Location:[facility] Appointment Type:US OB W/Biophysical Profile Appointment Date:11/17/2023 10:00:00 AM Scheduled Provider: Location:[facility] Appointment Type:US OB W/Biophysical Profile Appointment Date:11/21/2023 10:00:00 AM Scheduled Provider: Location:[facility] Appointment Type:US OB W/Biophysical Profile Future Scheduled Tests Laboratory* hCG, quantitative(AO) 03/28/23 * hCG, quantitative(AO) 03/16/23 * hCG, quantitative(AO) 03/19/23 * hCG, quantitative(AO) 03/25/23 * hCG, quantitative(AO) 03/28/23 * .Glucose Fasting 09/01/23 * .Glucose 1 Hour 09/01/23 * .Glucose 2 Hour 09/01/23 * .Glucose 3 Hour 09/01/23 * Urine Culture 03/16/23 * Urine Drug Screen 04/03/23 * [facility] (Blood Specimens) 05/01/23 * [facility] Lab Send out (Blood Specimens) 05/01/23 Radiology* US OB W/Biophysical Profile 11/03/23 * US OB W/Biophysical Profile 11/10/23 * US OB W/Biophysical Profile 11/14/23 * US OB W/Biophysical Profile 11/17/23 * US OB W/Biophysical Profile 11/21/23 * US OB W/Biophysical Profile 09/15/23 * US OB W/Biophysical Profile 09/26/23 * US OB W/Biophysical Profile 10/03/23 * US OB W/Biophysical Profile 10/10/23 [facility] Evaluation + Plan note Future Appointments Appointment Date:11/09/2023 11:45:00 AM Scheduled Provider:ETHEL MARTE MD Location: [place] Appointment Type: OV Appointment Date:11/10/2023 10:00:00 AM Scheduled Provider: Location:[facility] Appointment Type:US OB W/Biophysical Profile Appointment Date:11/14/2023 10:00:00 AM Scheduled Provider: Location:[facility] Appointment Type:US OB W/Biophysical Profile Appointment Date:11/17/2023 10:00:00 AM Scheduled Provider: Location:[facility] Appointment Type:US OB W/Biophysical Profile Appointment Date:11/21/2023 10:00:00 AM Scheduled Provider: Location:[facility] Appointment Type:US OB W/Biophysical Profile Future Scheduled Tests Laboratory* hCG, quantitative(AO) 03/28/23 * hCG, quantitative(AO) 03/16/23 * hCG, quantitative(AO) 03/19/23 * hCG, quantitative(AO) 03/25/23 * hCG, quantitative(AO) 03/28/23 * .Glucose Fasting 09/01/23 * .Glucose 1 Hour 09/01/23 * .Glucose 2 Hour 09/01/23 * .Glucose 3 Hour 09/01/23 * Urine Culture 03/16/23 * Urine Drug Screen 04/03/23 * [facility] Lab Send out (Blood Specimens) 05/01/23 * [facility] Lab Send out (Blood Specimens) 05/01/23 Radiology* US OB W/Biophysical Profile 11/10/23 * US OB W/Biophysical Profile 11/14/23 * US OB W/Biophysical Profile 11/17/23 * US OB W/Biophysical Profile 11/21/23 * US OB W/Biophysical Profile 09/15/23 * US OB W/Biophysical Profile 09/26/23 * US OB W/Biophysical Profile 10/03/23 * US OB W/Biophysical Profile 10/10/23 [facility] Evaluation note* Diagnosis Generalized abdominal pain- Primary Abdominal pain, generalized documented in this encounter [facility] note* Diagnosis URI, acute- Primary Acute upper respiratory infections of unspecified site Sore throat Acute pharyngitis History of asthma Personal history of other diseases of respiratory system documented in this encounter [facility] noteNo assessment information availableWAultman Hospital Work Phone: Evaluation note* Diagnosis Viral illness- Primary Unspecified viral infection, in conditions classified elsewhere and of unspecified site documented in this encounter [facility] note* Diagnosis Wellness examination- Primary Screening for deficiency anemia Screening for other and unspecified deficiency anemia Lipid screening Screening for lipoid disorders Steatosis of liver Other chronic 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) Anxiety Anxiety state, unspecified Depression, unspecified depression type and not yet delivered in third trimester documented in this encounter [facility] note* Diagnosis Atypical chest pain- Primary Other chest pain Anxiety Anxiety state, unspecified documented in this encounter [facility] note* Diagnosis Urinary frequency- Primary Dysuria documented in this encounter [facility] note* Diagnosis Community acquired pneumonia, unspecified laterality- Primary Acute cough Sore throat Acute pharyngitis documented in this encounter [facility] note* Diagnosis Acute otitis media, right- Primary Unspecified otitis media documented in this encounter [facility] note* Diagnosis Acute otitis externa of right ear, unspecified type- Primary documented in this encounter [facility] course Narrative No data available for this section [facility] Hospital Discharge instructions No data available for this section [facility] Discharge instructions Additional Instructions You received your RhoGAM shot today you need to follow-up with your CAR UNLOADER HELPER, your hCG quantitative was 15,968, this needs redrawn in 2 days.[facility] Work Phone: Progress note No data available for this section [facility] Reason for referral (narrative)No reason for referral information availableWAultman Hospital Work Phone: Summary Purpose Family History No Family History Records Found Relationship Condition Age at Onset Recorded Date/T norma grandmother Malignant neoplasm Unknown Hypertension Unknown Relationship Condition Age at Onset Recorded Date/T norma grandmother Malignant neoplasm Unknown Hypertension Unknown brother Asthma Unknown Advance Directives No Advanced Directives Records Found Advance Directive Response Recorded Date/ Time Living Will No March 26, 2023 1: 32pm Power of Mechanical Maintenance Engineer No March 26, 2023 1:32pm Advance Directive Response Recorded Date/ Time Living Will No May 20, 2023 1 0:15pm Power of Mechanical Maintenance Engineer No May 20, 2023 10:15pm Advance Directive Response Recorded Date/ Time Living Will No January 11 024 8:58am Power of Mechanical Maintenance Engineer No January 11, 2024 8:58am Advance Directive Response Recorded Date/ Time Living Will No March 30, 2024 7 :34am Power of Mechanical Maintenance Engineer No March 30, 2024 7:34am Advance Directive Response Recorded Date/ Time Living Will No March 09, 2025 4:09pm Do you have a Healthcare Power of Mechanical Maintenance Engineer? No March 09, 2025 4:09pm Advance Directive Response Recorded Date/ Time Living Will No March 09, 2025 4:09pm Do you have a Healthcare Power of Mechanical Maintenance Engineer? No March 09, 2025 4:09pm Living Will No March 11, 2025 3:37am Do you have a Healthcare Power of Mechanical Maintenance Engineer? No March 11, 2025 3:37am Chief Complaint and Reason for Visit Chief Complaint , BLEEDING Chief Complaint , BLEEDING ABD PAIN, 14 WKS PREG Chief Complaint cp Chief Complaint cp chest pain Chief Complaint Admit Date abd March 09, 2025 2:3 2pm Chief Complaint Admit Date abd March 09, 2025 2:3 2pm abd pain March 11, 2025 3:3 6am RUQP March 12, 2025 10: 54am [employer] March 17, 2025 1:5 5pm [facility] June 26, 2025 12: 57pm Reason for Visit Admit Date Gallstones March 17, 2025 1:5 5pm Right upper quadrant abdominal pain Apri l 2024 1:55pm Additional Source Comments INFORMATION SOURCE (unrecogn ized section and content) DATE CREATED AUTHOR 06/20/2018 [facility] DATE CREATED AUTHOR AUTHOR'S ORGANIZ ATION 07/15/2018 [facility] DATE CREATED AUTHOR AUTHOR'S ORGANIZ ATION 10/03/2018 [facility] DATE CREATED AUTHOR AUTHOR'S ORGANIZ ATION 10/26/2023 [facility] DATE CREATED AUTHOR AUTHOR'S ORGANIZ ATION 07/08/2024 [facility] ([place] DATE CREATED AUTHOR AUTHOR'S ORGANIZ ATION 01/27/2025 [facility] DATE CREATED AUTHOR AUTHOR'S ORGANIZ ATION 06/28/2025 [facility] DATE CREATED AUTHOR AUTHOR'S ORGANIZ ATION 07/30/2025 [facility] DATE CREATED AUTHOR AUTHOR'S ORGANIZ ATION 08/03/2025 [facility] nter Care Team (unrecognized sect ion and content) Resident Manager Relationship Specialty Start Date End Date Barry Reeves MD PCP - General Family Practice 11/24/11 Resident Manager Relationship Specialty Start Date End Date Barry Reeves MD PCP - General Family Practice 11/24/11 Resident Manager Relationship Specialty Start Date End Date Barry Reeves MD PCP - General Family Practice 11/24/11 Resident Manager Relationship Specialty Start Date End Date Barry Reeves MD PCP - General Family Practice 11/24/11 Resident Manager Relationship Specialty Start Date End Date Barry Reeves MD PCP - General Family Medicine 11/24/11 Resident Manager Relationship Specialty Start Date End Date Barry Reeves MD PCP - General Family Medicine 11/24/11 Team Status: Active Member Role Status Dates Dr. Barry Reeves MD Family Provider Active Dr. Barry Reeves MD Primary Care Provider Active Team Status: Inactive Member Role Status Dates Dr. Barry Reeves MD Primary Care Provider Active Dr. Deuce Levy , DO Emergency Provider Active Resident Manager Relationship Specialty Start Date End Date Barry Reeves MD PCP - General Family Medicine 11/24/11 Team Status: Inactive Member Role Status Dates Dr. Barry Reeves MD Primary Care Provider Active Dr. Deuce Levy , DO Attending Provider, Emergency P corky Active Resident Manager Relationship Specialty Start Date End Date Barry Reeves MD PCP - General Family Medicine 11/24/11 Resident Manager Relationship Specialty Start Date End Date Barry Reeves MD PCP - General Family Medicine 11/24/11 Soco Campuzano [address] [place] [phone] CAR UNLOADER HELPER 02/24/23 Indu Benítez [address] [place] [phone] Maternal Medicine 02/24/23 Resident Manager Relationship Specialty Start Date End Date Barry Reeves MD PCP - General Family Medicine 11/24/11 Soco Campuzano [address] [place] [phone] CAR UNLOADER HELPER 02/24/23 Indu Benítez [address] [phone] Maternal Medicine 02/24/23 Resident Manager Relationship Specialty Start Date End Date Barry Reeves MD PCP - General Family Medicine 11/24/11 Soco Campuzano [address] [place] [phone] CAR UNLOADER HELPER 02/24/23 Indu Benítez [address] [place] [phone] Maternal Medicine 02/24/23 Resident Manager Relationship Specialty Start Date End Date Barry Reeves MD [address] [place], [place] [phone] PCP - General Family Medicine 11/24/11 Soco Campuzano [address] [place] [phone] CAR UNLOADER HELPER 02/24/23 Indu Benítez [address] [place] [phone] Maternal Medicine 02/24/23 Resident Manager Relationship Specialty Start Date End Date Barry Reeves MD [address] [place], [place] [address] PCP - General Family Medicine 11/24/11 Soco Campuzano [address] [place] [phone] Director Insurance 02/24/23 Indu Benítez [address] [phone] Maternal Medicine 02/24/23 Rae Vega, barker operator [employer] Developer 11/14/23 11/14/23 Resident Manager Relationship Specialty Start Date End Date Barry Reeves MD [address] [place], [place] [address]206 [phone] PCP - General Family Medicine 11/24/11 Soco Campuzano [address] [place] [phone] Director Insurance 02/24/23 Indu Benítez Fermin [address] [place] [phone] Maternal Medicine 02/24/23 Team Status: Inactive Member Role Status Dates Dr. Barry Reeves MD Primary Care Provider Active Juan Jose Salguero MD Emergency Provider Active Resident Manager Relationship Specialty Start Date End Date Barry Reeves MD [address] [place], [place] [address] PCP - General Family Medicine 11/24/11 Soco Campuzano [address] [place] [phone] Director Insurance 02/24/23 Indu Benítez Fermin [address] [phone] Maternal Medicine 02/24/23 Resident Manager Relationship Specialty Start Date End Date Barry Reeves MD [address] [place] [address] PCP - General Family Medicine 11/24/11 Soco Campuzano [address] [place] [phone] Director Insurance 02/24/23 Indu Benítez [address] [place] [phone] Maternal Medicine 02/24/23 Resident Manager Relationship Specialty Start Date End Date Barry Reeves MD [address] [place] [address] PCP - General Family Medicine 11/24/11 Soco Campuzano [address] [place] [phone] Director Insurance 02/24/23 Indu Benítez [address] [place] [phone] Maternal Medicine 02/24/23 Team Status: Active Member Role Status Dates Dr. Barry Reeves MD Primary Care Provider Active Team Status: Inactive Member Role Status Dates Dr. Barry Reeves MD Primary Care Provider Active Start: March 09, 2025 End: March 09, 2025 Dr. Deuce Levy DO Emergency Provider Active Start: March 09, 2025 End: March 09, 2025 Resident Manager Relationship Specialty Start Date End Date Barry Reeves MD [address] [place], [place] [address] PCP - General Family Medicine 11/24/11 Soco Campuzano [address] [place] [phone] Director Insurance 02/24/23 Indu Benítez Fermin [address] [place] [phone] Maternal Medicine 02/24/23 Resident Manager Relationship Specialty Start Date End Date Barry Reeves MD [address] [place] [address] PCP - General Family Medicine 11/24/11 Soco Campuzano [address] [place] [phone] Director Insurance 02/24/23 Indu Benítez Fermin [address] [place] [phone] Maternal Medicine 02/24/23 Team Status: Active Member Role/Relationship Status Dates Dr. Barry Reeves MD Primary Care Provider Active Team Status: Inactive Member Role/Relationship Status Dates Dr. Barry Reeves MD Primary Care Provider Active Start: March 09, 2025 End: March 09, 2025 Dr. Deuce Levy , Attending Provider Active Start: March 09, 2025 End: March 09, 2025 Dr. Deuce Leyv , Emergency Provider Active Start: March 09, 2025 End: March 09, 2025 Team Status: Inactive Member Role/Relationship Status Dates Dr. Barry Reeves MD Primary Care Provider Active Start: March 11, 2025 End: March 11, 2025 Dr. Reese King , Attending Provider Active Start: March 11, 2025 End: March 11, 2025 Dr. Reese Andes , DO Emergency Provider Active Start: March 11, 2025 End: March 11, 2025 Team Status: Inactive Member Role/Relationship Status Dates Dr. Barry Reeves MD Primary Care Provider Active Start: March 12, 2025 End: March 12, 2025 Dr. Reese King DO Attending Provider Active Start: March 12, 2025 End: March 12, 2025 Dr. Reese King DO Referring Provider Active Start: March 12, 2025 End: March 12, 2025 Team Status: Inactive Member Role/Relationship Status Dates Dr. Barry Reeves MD Primary Care Provider Active Start: March 17, 2025 End: March 17, 2025 Dr. Barry Reeves MD Referring Provider Active Start: March 17, 2025 End: March 17, 2025 Dr. Luis Alberto Be MD Attending Provider Active Start: March 17, 2025 End: March 17, 2025 Team Status: Inactive Member Role/Relationship Status Dates Dr. Barry Reeves MD Primary Care Provider Active Start: June 26, 2025 End: June 26, 2025 Dr. Barry Reeves MD Referring Provider Active Start: June 26, 2025 End: June 26, 2025 CEFERINO Cruz Attending Provider Active Sta rt: June 26, 2025 End: June 26, 2025 Source Comments (unrecognize d section and content) In the event this informatio n is protected by the Federal Confidentiality of Alcohol and Drug Abuse Patient Records regulations: The Federal rules restrict any use of the information to criminally investigate or prosecute any alcohol or drug abuse patient.[facility] HealthIn the event this information is protected by the Federal Confidentiality of Alcohol and Drug Abuse Patient Records regulations: The Federal rules restrict any use of the information to criminally investigate or prosecute any alcohol or drug abuse patient.[facility] HealthIn the event this information is protected by the Federal Confidentiality of Alcohol and Drug Abuse Patient Records regulations: The Federal rules restrict any use of the information to criminally investigate or prosecute any alcohol or drug abuse patient.[facility] HealthIn the event this information is protected by the Federal Confidentiality of Alcohol and Drug Abuse Patient Records regulations: The Federal rules restrict any use of the information to criminally investigate or prosecute any alcohol or drug abuse patient.[facility] HealthIn the event this information is protected by the Federal Confidentiality of Alcohol and Drug Abuse Patient Records regulations: The Federal rules restrict any use of the information to criminally investigate or prosecute any alcohol or drug abuse patient.[facility] HealthIn the event this information is protected by the Federal Confidentiality of Alcohol and Drug Abuse Patient Records regulations: The Federal rules restrict any use of the information to criminally investigate or prosecute any alcohol or drug abuse patient.[facility] HealthIn the event this information is protected by the Federal Confidentiality of Alcohol and Drug Abuse Patient Records regulations: The Federal rules restrict any use of the information to criminally investigate or prosecute any alcohol or drug abuse patient.[facility] HealthIn the event this information is protected by the Federal Confidentiality of Alcohol and Drug Abuse Patient Records regulations: The Federal rules restrict any use of the information to criminally investigate or prosecute any alcohol or drug abuse patient.[facility] HealthIn the event this information is protected by the Federal Confidentiality of Alcohol and Drug Abuse Patient Records regulations: The Federal rules restrict any use of the information to criminally investigate or prosecute any alcohol or drug abuse patient.[facility] HealthIn the event this information is protected by the Federal Confidentiality of Alcohol and Drug Abuse Patient Records regulations: The Federal rules restrict any use of the information to criminally investigate or prosecute any alcohol or drug abuse patient.[facility] HealthIn the event this information is protected by the Federal Confidentiality of Alcohol and Drug Abuse Patient Records regulations: The Federal rules restrict any use of the information to criminally investigate or prosecute any alcohol or drug abuse patient.[facility] HealthIn the event this information is protected by the Federal Confidentiality of Alcohol and Drug Abuse Patient Records regulations: The Federal rules restrict any use of the information to criminally investigate or prosecute any alcohol or drug abuse patient.[facility] HealthIn the event this information is protected by the Federal Confidentiality of Alcohol and Drug Abuse Patient Records regulations: The Federal rules restrict any use of the information to criminally investigate or prosecute any alcohol or drug abuse patient.[facility] HealthIn the event this information is protected by the Federal Confidentiality of Alcohol and Drug Abuse Patient Records regulations: The Federal rules restrict any use of the information to criminally investigate or prosecute any alcohol or drug abuse patient.[facility] HealthIn the event this information is protected by the Federal Confidentiality of Alcohol and Drug Abuse Patient Records regulations: The Federal rules restrict any use of the information to criminally investigate or prosecute any alcohol or drug abuse patient.[facility] HealthIn the event this information is protected by the Federal Confidentiality of Alcohol and Drug Abuse Patient Records regulations: The Federal rules restrict any use of the information to criminally investigate or prosecute any alcohol or drug abuse patient.[facility] HealthIn the event this information is protected by the Federal Confidentiality of Alcohol and Drug Abuse Patient Records regulations: The Federal rules restrict any use of the information to criminally investigate or prosecute any alcohol or drug abuse patient.[facility] HealthIn the event this information is protected by the Federal Confidentiality of Alcohol and Drug Abuse Patient Records regulations: The Federal rules restrict any use of the information to criminally investigate or prosecute any alcohol or drug abuse patient.[facility] HealthIn the event this information is protected by the Federal Confidentiality of Alcohol and Drug Abuse Patient Records regulations: The Federal rules restrict any use of the information to criminally investigate or prosecute any alcohol or drug abuse patient.[facility] HealthIn the event this information is protected by the Federal Confidentiality of Alcohol and Drug Abuse Patient Records regulations: The Federal rules restrict any use of the information to criminally investigate or prosecute any alcohol or drug abuse patient.[facility] HealthIn the event this information is protected by the Federal Confidentiality of Alcohol and Drug Abuse Patient Records regulations: The Federal rules restrict any use of the information to criminally investigate or prosecute any alcohol or drug abuse patient.[facility] HealthIn the event this information is protected by the Federal Confidentiality of Alcohol and Drug Abuse Patient Records regulations: The Federal rules restrict any use of the information to criminally investigate or prosecute any alcohol or drug abuse patient.[facility] HealthIn the event this information is protected by the Federal Confidentiality of Alcohol and Drug Abuse Patient Records regulations: The Federal rules restrict any use of the information to criminally investigate or prosecute any alcohol or drug abuse patient.[facility] HealthIn the event this information is protected by the Federal Confidentiality of Alcohol and Drug Abuse Patient Records regulations: The Federal rules restrict any use of the information to criminally investigate or prosecute any alcohol or drug abuse patient.[facility] Reason for Visit (unrecogniz ed section and content) Reason Comments Patient Question Reason Onset Date Comments Refill Request 07/01/2022 Reason Comments Results Reason Comments Sore Throat SPANN, sinus x 1 day Reason Comments Cough Cough, fever, bodyac hes, SPANN, ST and chills -symptoms started last night Reason Comments Wellness Reason Comments Follow Up Reason Onset Date Comments See [facility] - ED Follow Up 04/01/2024 Reason Comments Urinary Problem Frequency and burnin g x4 days Reason Comments Cough Chest congestion, ST x4 days Specialty Diagnoses / Procedures Referred By Teresa medina Referred To Contact [facility] Diagnoses cough, chest congestion, sore throat Procedures EST SAME DAY [facility] [address] [place] [address] Phone: tel: Referral ID Status Reason Start Date Expiration Date Visits Requested Visits Authorized [id number] New Request Financial Clearance Required - Self Pay 04/16/2025 07/15/2025 1 1 Reason Comments Ear Pain right x 6 days Reason Comments Ear Pain right x 06/16 Reason Comments Appointment Care Team (unrecognized sect ion and content) Care Team Personnel Name: BARRY REEVES MD Member Role: Primary Care Physician Address: Address: [address] [place] [address] [place] Care Team Related Persons Name: BESSIE CARROLL I Address: Home [address] [place], [place] [phone] [place] Name: BESSIE CARROLL I Address: Home [address] [place], [place] [phone] [place] Name: BESSIE CARROLL I Address: Home [address] [place], [place] [phone] [place] Name: BESSIE CARROLL I Address: Home [address] [place], [place] [phone] [place] Name: BESSIE CARROLL I Address: Home [address] [place], [place] [phone] [place] Name: NADEGE CARROLL Address: Home [address] [place], [place] [phone] Care Team Personnel Name: BARRY REEVES MD Member Role: Primary Care Physician Address: Address: [address] [place] [address]- Name: ARTUR GROSS MD Position: ED Physician Member Role: ED Physician Address: Address: [address] [facility] [address] [place] [address]- Name: FRANCISCA Chaudhry Position: AO RN Member Role: ED RN Care Team Related Persons Name: BESSIE CARROLL I Address: Home [address] [place], [place] [phone] [place] Name: BESSIE CARROLL I Address: Home [address] [place] [phone] [place] Name: BESSIE CARROLL I Address: Home [address] [place], [place] [phone] [place] Name: BESSIE CARROLL I Address: Home [address] [place], [place] [phone] [place] Name: BESSIE CARROLL I Address: Home [address] [place] [phone] [place] Name: NADEGE CARROLL Address: Home [address] [facility] [place] [phone] [place] Care Team Personnel Name: BARRY REEVES MD Member Role: Primary Care Physician Address: Address: [address] [place], [place] [address] Care Team Related Persons Name: BESSIE CARROLL I Address: Home [address] [facility] [phone] [place] Name: BESSIE CARROLL I Address: Home [address] [facility] [phone] [place] Name: BESSIE CARROLL I Address: Home [address] [facility] [phone] [place] Name: BESSIE CARROLL I Address: Home [address] [facility], [place] [phone] [place] Name: BESISE CARROLL I Address: Home [address] [facility] [phone] [place] Name: NADEGE CARROLL Address: Home [address] [facility], [place] [phone] [place] Care Team Personnel Name: BARRY REEVES MD Member Role: Primary Care Physician Address: Address: [address] [place] [address]- Care Team Related Persons Name: BESSIE CARROLL I Address: Home [address] [facility], [place] [phone] [place] Name: BESSIE CARROLL I Address: Home [address] [facility] [phone] [place] Name: BESSIE CARROLL I Address: Home [address] [facility] [phone] [place] Name: BESSIE CARROLL I Address: Home [address] [facility] [phone] [place] Name: BESSIE CARROLL I Address: Home [address] [facility] [phone] [place] Name: NADEGE CARROLL Address: Home [address] [facility] [place] [phone] [place] Care Team Personnel Name: BARRY REEVES MD Member Role: Primary Care Physician Address: Address: [address] [place] [address]- Care Team Related Persons Name: BESSIE CARROLL I Address: Home [address] [facility] [phone] [place] Name: BESSIE CARROLL I Address: Home [address] [facility] [phone] [place] Name: BESSIE CARROLL I Address: Home [address] [facility] [phone] [place] Name: BESSIE CARROLL I Address: Home [address] [facility] [phone] [place] Name: BESSIE CARROLL I Address: Home [address] [facility] [phone] [place] Name: NADEGE CARROLL Address: Home [address] [facility], [place] [phone] [place] Care Team Personnel Name: BARRY REEVES MD Member Role: Primary Care Physician Address: Address: [address] [place] [address]- Care Team Related Persons Name: BESSIE CARROLL I Address: Home [address] [facility] [phone] [place] Name: BESSIE CARROLL I Address: Home [address] [facility] [phone] [place] Name: BESSIE CARROLL I Address: Home [address] [facility] [phone] [place] Name: BESSIE CARROLL I Address: Home [address] [facility] [phone] [place] Name: BESSIE CARROLL I Address: Home [address] [facility] [phone] [place] Name: NADEGE CARROLL Address: Home [address] [facility] [phone] [place] Care Team Personnel Name: BARRY REEVES MD Member Role: Primary Care Physician Address: Address: [address] [place] [address]- Care Team Related Persons Name: BESSIE CARROLL I Address: Home [address] [facility], [place] [phone] [place] Name: BESSIE CARROLL I Address: Home [address] [facility] [phone] [place] Name: BESSIE CARROLL I Address: Home [address] [facility], [place] [phone] [place] Name: BESSIE CARROLL I Address: Home [address] [facility], [place] [phone] [place] Name: BESSIE CARROLL I Address: Home [address] [facility], [place] [phone] [place] Name: NADEGE CARROLL Address: Home [address] [place], [place] [phone] [place] Care Team Personnel Name: BARRY REEVES MD Member Role: Primary Care Physician Address: Address: [address] [place] [address]- Care Team Related Persons Name: BESSIE CARROLL I Address: Home [address] [facility] [phone] [place] Name: BESSIE CARROLL I Address: Home [address] [facility] [phone] [place] Name: BESSIE CARROLL I Address: Home [address] [facility] [phone] [place] Name: BESSIE CARROLL I Address: Home [address] [facility] [phone] [place] Name: BESSIE CARROLL I Address: Home [address] [facility] [phone] [place] Name: NADEGE CARROLL Address: Home [address] [place], [place] [phone] [place] Care Team Personnel Name: BARRY REEVES MD Member Role: Primary Care Physician Address: Address: [address] [place] [address]- Care Team Related Persons Name: BESSIE CARROLL I Address: Home [address] [facility] [phone] [place] Name: BESSIE CARROLL I Address: Home [address] [place], [place] [phone] [place] Name: BESSIE CARROLL I Address: Home [address] [facility] [phone] [place] Name: BESSIE CARROLL I Address: Home [address] [facility] [phone] [place] Name: BESSIE CARROLL I Address: Home [address] [facility] [phone] [place] Name: NADEGE CARROLL Address: [place] [address] [place] [phone] [place] Care Team Personnel Name: BARRY REEVES MD Member Role: Primary Care Physician Address: Address: [address] [place], [place] [address] Care Team Related Persons Name: BESSIE CARROLL I Address: Home [address] [facility] [phone] [place] Name: BESSIE CARROLL I Address: Home [address] [facility] [phone] [place] Name: BESSIE CARROLL I Address: Home [address] [facility] [phone] [place] Name: BESSIE CARROLL I Address: Home [address] [facility] [phone] [place] Name: BESSIE CARROLL I Address: Home [address] [facility] [phone] [place] Name: NADEGE CARROLL Address: Home [address] [place], [place] [phone] [place] Care Team Personnel Name: BARRY REEVES MD Member Role: Primary Care Physician Address: Address: [address] [place] [phone] Care Team Related Persons Name: BESSIE CARROLL I Address: Home [address] [facility] [phone] [place] Name: BESSIE CARROLL I Address: Home [address] [facility] [place] [phone] [place] Name: BESSIE CARROLL I Address: Home [address] [facility] [phone] [place] Name: BESSIE CARROLL I Address: Home [address] [facility] [phone] [place] Name: BESSIE CARROLL I Address: Home [address] [facility] [phone] [place] Name: NADEGE CARROLL Address: Home [address] [facility] [phone] Care Team Personnel Name: BARRY REEVES MD Member Role: Primary Care Physician Address: Address: [address] [place] [phone] Care Team Related Persons Name: BESSIE CARROLL I Address: Home [address] [place] [phone] [place] Name: BESSIE CARROLL I Address: Home [address] [place], [place] [phone] [place] Name: BESSIE CARROLL I Address: Home [address] [place], [place] [phone] [place] Name: BESSIE CARROLL I Address: Home [address] [facility] [phone] [place] Name: BESSIE CARROLL I Address: Home [address] [place], [place] [phone] [place] Name: NADEGE CARROLL Address: Home [address] [place], [place] [phone] Care Team Personnel Name: BARRY REEVES MD Member Role: Primary Care Physician Address: Address: [address] [place] [phone] Care Team Related Persons Name: BESSIE CARROLL I Address: Home [address] [facility] [phone] [place] Name: BESSIE CARROLL I Address: Home [address] [place], [place] [id number] [place] Name: BESSIE CARROLL I Address: Home [address] [place], [place] [id number] [place] Name: BESSIE CARROLL I Address: Home [address] [place], [place] [id number] [place] Name: BESSIE CARROLL I Address: Home [address] [place], [place] [id number] [place] Name: NADEGE CARROLL Address: Home [address] [place], [place] [id number] Goals (unrecognized section and content) Goals may be documented in a n alternate section FOR RECORDS PERTAINING TO PATIENTS WHO ARE OR HAVE BEEN ENROLLED IN A CHEMICAL DEPENDENCY/SUBSTANCEABUSE PROGRAM, SOME INFORMATION MAY BE OMITTED. This clinical summary was aggregated from multiple sources. Caution should be exercised in using it in the provision of clinical care. This summary normalizes information from multiple sources, and as a consequence, information in this document may materially change the coding, format and clinical context of patient data. In addition, data may be omitted in some cases. CLINICAL DECISIONS SHOULD BE BASED ON THE PRIMARY CLINICAL RECORDS. [facility] [employer] [facility] provides no warranty or guarantee of the accuracy or completeness of information in this document."
[2025-09-16 07:45] LABS: Hematocrit 41.3 % (37-47); Hemoglobin 13.9 g/dL (12.0-15.0); Immature Granulocytes Count 0.020 X10^3/uL (0.0-0.0); Mean Corp Hgb Conc 33.7 g/dL (32-36); Mean Corpuscular Volume 91.2 fL (81-99); Mean Platelet Vol. 11.5 fl (6.2-12.0); NRBC Flagged by Analyzer 0 % (0-5); Platelet Count 313 K/mm3 (150-450); RBC Distribution Width CV 12.7 % (11.6-14.6); RBC Distribution Width SD 41.8 fl (35.1-43.9); Red Blood Count 4.53 M/mm3 (4.2-5.4); White Blood Count 12.6 K/mm3 (4.4-11.0)
[2025-09-16 08:09] LABS: Internal QC Validated? YES +Cl - CLEAR BKGD; Pregnancy, Serum, hCG Quali. NEGATIVE Negative; Record Kit Lot#, Serum Preg. 980607
[2025-09-16 08:15] LABS: AST(SGOT) 14 U/L (<=31); Alanine Aminotransfer ALT/SGPT 17 U/L (<=34); Albumin, Serum 4.2 g/dL (3.5-5.0); Alkaline Phosphatase 53 U/L (35-104); Anion Gap 11 (5-15); BUN 11 mg/dL (4-19); BUN/Creat Ratio 13.4 RATIO (10-20); Calcium,Total 9.4 mg/dL (7.6-11.0); Carbon Dioxide 23.6 mmol/L (21.0-32.0); Chloride 105 mmol/L (98-108); Estimated Creatinine Clearance 138.75 ml/min (50-250); Globulin 3.2 g/dL (2.2-4.2); Glucose 109 mg/dL (70-99); Lipase 29 U/L (13-75); Potassium 3.8 mmol/L (3.3-5.1)
[2025-09-16 08:22] LABS: Mucous, Urine 0 SEEN /hpf (<or=2+); Red Blood Cells-Urine 0 SEEN /hpf (0-5)
[2025-09-16 08:23] LABS: Color, Urine Yellow (Yellow); Glucose, Dipstick Normal (Normal); Ketone-Dipstick Negative (Negative); Leukocyte Esterase-Dipstick Negative /ul (Negative); Nitrite-Dipstick Negative (Negative); Occult Blood-Urine 50 /ul (Negative); Protein-Dipstick Negative (Negative); Specific Gravity, Urine 1.020 (1.002-1.030); Urine Bilirubin Dipstick Negative (Negative)
[2025-09-16 08:29] LABS: Squamous Epithelial Cells - UA 0-5 SEEN /hpf (5-10)
--- NOTE | 2025-09-16 08:32 | CT_ITS ---
PROCEDURE: ABDOMEN/PELVIS W IV CONT ONLY 09/16/2025 REASON FOR EXAM: ABDOMINAL PAIN TECHNIQUE: Procedure Code: [id number] Modality: CT Procedure: ABDOMEN/PELVIS W IV CONT ONLY Coronal and Sagittal reconstruction series were provided. CONTRAST: VOLUME: mL One or more dose reduction techniques were used (e.g., Automated exposure control, adjustment of the mA and/or kV according to patient size, use of iterative reconstruction technique. COMPARISON: 03/09/2025. FINDINGS: The visualized lung bases are clear. The liver, gallbladder, pancreas, spleen, adrenal glands, kidneys, and urinary bladder appear unremarkable. Fluid is noted within the uterine cavity. Please correlate with the patient's menstrual cycle. No evidence of a bowel obstruction. No bowel wall thickening. The appendix is visualized and unremarkable. No intraperitoneal free air or free fluid. No abdominal nor pelvic lymphadenopathy. No acute osseous abnormality. No acute fracture. CT/Abdomen/Pelvis W IV Cont ONLY IMPRESSION: Fluid within the uterine cavity. Please correlate with the patient's menstrual cycle. Otherwise no acute abdominal or pelvic process is identified. Reading Location: [id number]
[2025-09-16 09:11] VITALS: BP 130/74; PULSE 79; RESP 16; O2SAT 100
[2025-09-16] MEDS: Ketorolac 30 MG/ML Syringe IV (09:28)
[2025-09-16] MEDS: Pantoprazole Sodium 40 MG in 0.9% Normal Saline (100mL MB+) 100 ML 300 MG IV (10:12)
[2025-09-16 10:35] VITALS: BP 118/82; PULSE 65; RESP 17; TEMP 36.4; O2SAT 97
== END 2025-09-16 10:40 | disposition home or self-care (01) ==
PROVIDERS: Emergency Provider Emergency Medicine; PCP Family Medicine; Visit Provider Emergency Medicine
DX: R10.9 Unspecified abdominal pain (principal); Z79.899 Other long term (current) drug therapy
CPT/HCPCS: 74177; 76705; 80053; 81001; 83605; 83690; 84703; 85025; 96361; 96365; 96375; 99284; Q9967; A4216; J2405